=== PATIENT | male | born 1975 | race American Indian/Alaskan Native ===

== ENCOUNTER 2017-09-10 20:13 | Inpatient (IN) | payer OTHER ==
[2017-09-10] MEDS ORDERED: DUONEB *Not for PRN Use IH ONE (20:54)
--- NOTE | 2017-09-10 20:54 | Emergency Department Report ---
HPI - General Time Seen by Provider: 09/10/17 20:41 - HPI HPI: This is a 42-year-old -[place] female presents to the emergency department by EMS from home with complaint of a 5 day history of some weakness, body aches and shortness of breath. The patient had a cough leading up to these other symptoms but says that that stopped when the symptoms began. He's been using Robitussin Mucinex and TheraFlu without much relief. The patient says "I think I have the flu." He has a tobacco smoker but denies any illicit drug use. He has a past medical history of CHF, hypertension, hyperlipidemia and diabetes. 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 No recent travel or sick contacts at home. ED Past Medical Hx - Past Medical History Hx Hypertension: Yes Hx Congestive Heart Failure: Yes Hx Diabetes: Yes - Surgical History Additional Surgical History: hernia repair - Social History Smoking Status: Never Smoker Substance Use Type: None - Medications Home Medications: Home Medications Medication Instructions Recorded Confirmed Last Taken Type Furosemide [Lasix] 20 mg PO QDAY #60 tablet 03/09/16 Unknown Rx ED Review of Systems ROS: Stated complaint: ROBERT Other details as noted in HPI Comment: All other systems reviewed and negative Constitutional: weakness. denies: chills, fever Eyes: denies: eye pain, eye discharge, vision change ENT: denies: ear pain, throat pain Respiratory: cough, shortness of breath Cardiovascular: denies: chest pain, palpitations Gastrointestinal: denies: abdominal pain, nausea, diarrhea Genitourinary: denies: urgency, dysuria Musculoskeletal: myalgia. denies: joint swelling Skin: denies: rash, lesions Neurological: denies: headache, weakness, paresthesias Physical Exam - Physical Exam Physical Exam: GENERAL: The patient is well-developed well-nourished. HENT: Normocephalic. Atraumatic. Patient has moist mucous membranes. EYES: Extraocular motions are intact. Pupils equal reactive to light bilaterally. NECK: Supple. Trachea is midline. CHEST/LUNGS: Rhonchi heard throughout the chest. There is tachypnea and accessory muscle use. Productive cough heard during examination. There is respiratory distress noted. HEART/CARDIOVASCULAR: Regular. There is mild to moderate tachycardia. There is no murmur. ABDOMEN: Abdomen is soft, nontender. Patient has normal bowel sounds. Morbidly obese habitus. SKIN: Skin is warm and dry. NEURO: The patient is awake, alert, and oriented. The patient is cooperative. The patient has no focal neurologic deficits. The patient has normal speech. MUSCULOSKELETAL: There is no tenderness or deformity. There is no limitation range of motion. There is no evidence of acute injury. - ABG Interpretation Ph: 7.44 PCO2: 32 PO2: 90 Bicarbonate: 22 Interpretation: normal (on nonrebreather) ED Medical Decision Making - Lab Data Result diagrams: 09/10/17 21:03 09/10/17 21:03 - EKG Data -: EKG Interpreted by Me EKG shows normal: sinus rhythm, axis (left axis deviation), intervals, QRS complexes (Q waves to the septal and anterior leads, left anterior fascicular block), ST-T waves Rate: tachycardia (122 bpm) - EKG Data When compared to previous EKG there are: no significant change (other than current tachycardia) Interpretation: unchanged when compared t (03/09/16) - Radiology Data Radiology results: report reviewed, image reviewed interpreted by me: Chest x-ray shows patchy bilateral infiltrates throughout the lung forte concerning for pneumonia. No obvious pleural effusions. No pneumothorax. EXAM: CT ANGIO CHEST HISTORY: SOB, elevated dimer TECHNIQUE: A CT angiogram was performed following the intravenous injection of 100 cc of Omnipaque 350. Rotational, sagittal coronal MIP reconstructions were reviewed. FINDINGS: The lungs reveal extensive infiltrates bilaterally with the worse infiltrates in the right middle lobe, lingula, and both lower lobes. The lungs otherwise reveal emphysematous changes in both lung apices. The lungs are not congested. Pleural fluid is not seen. There is no evidence of pulmonary embolus or aortic dissection. Enlarged lymph nodes are not identified. There are small benign-appearing lymph nodes in the mediastinum. Pericardial fluid is not seen but the heart size is normal. In the upper abdomen the adrenal glands appear normal. The skeletal structures reveal mild disc degeneration in the thoracic spine at the thoracic inlet the thyroid gland appears normal. IMPRESSION: No evidence of pulmonary embolus, aortic dissection, or vascular congestion. Extensive bilateral pneumonia as described. Transcribed By: RB Dictated By: KIMBERLY UGALDE MD Electronically Authenticated By: KIMBERLY UGALDE MD Signed Date/Time: 09/10/172008 - Medical Decision Making Patient presents with some fatigue, weakness, shortness of breath and previous cough. Labs show hyponatremia, elevated d-dimer, elevated PTT, hyperglycemia without DKA. Chest x-ray shows extensive bilateral pneumonia. CT angiography confirms this and rules out pulmonary embolism and dissection. Patient had blood cultures sent and was started on Levaquin. The patient has hypoxia with nasal cannula and Venturi mask. He does okay on nonrebreather but cannot stay on this continuously and therefore was placed on BiPAP. He is a [employer] insurance patient and I spoke with Dr. Gentile who asked for the patient to remain at [facility] and gave permission for continued treatment. The patient has been accepted for admission by the hospitalist, Dr. Fong. - Differential Diagnosis PE, pneumonia, sepsis, influenza, URI Critical Care Time: Yes Critical care time in (mins) excluding proc time.: 35 Critical care attestation.: If time is entered above; I have spent that time in minutes in the direct care of this critically ill patient, excluding procedure time. Critical care time spent on this patient during his initial evaluation, multiple re-evaluations, switching between different supplemental oxygen modalities, ordering and interpretation of labs and imaging, discussion with the patient, discussion with the [place] physician in discussion with the admitting hospitalist. Critical Care Time: 35 minutes ED Disposition Clinical Impression: Hypoxia, Respiratory distress, Hyperglycemia, Hyponatremia Bilateral pneumonia Qualifiers: Pneumonia type: due to unspecified organism Lung location: unspecified part of lung Qualified Code(s): J18.9 - Pneumonia, unspecified organism Disposition: OP ADMIT IP TO THIS HOSP Is pt being admited?: Yes Condition: Serious Instructions: Bacterial Pneumonia (ED) Referrals: KAZ WALTER MD [Primary Care Provider] - 3-5 Days Time of Disposition: :
[2017-09-10 21:21] LABS: Basophils % (Auto) 0.7 % (0.0-1.8); Hematocrit 52.9 % (35.5-45.6); Hemoglobin 17.9 gm/dl (11.8-15.2); Lymphocytes # (Auto) 0.4 K/mm3 (1.2-5.4); Lymphocytes % (Auto) 8.5 % (13.4-35.0); Mean Corpuscular HGB Conc 34 % (32-34); Mean Corpuscular Hemoglobin 29 pg (28-32); Mean Corpuscular Volume 86 fl (84-94); Monocytes # (Auto) 0.3 K/mm3 (0.0-0.8); Monocytes % (Auto) 5.6 % (0.0-7.3); Platelet Count 126 K/mm3 (140-440); Red Blood Count 6.16 M/mm3 (3.65-5.03); Red Cell Distribution Width 14.9 % (13.2-15.2)
[2017-09-10 21:30] LABS: INR 0.9 (0.87-1.13)
[2017-09-10] MEDS ORDERED: LEVAQUIN 750MG/150ML 750 MG/150 ML BAG IV ONE (21:32)
[2017-09-10 21:38] LABS: Partial Thromboplastin Time 67.9 Sec. (24.2-36.6)
[2017-09-10 21:44] LABS: Alanine Aminotransferase 49 units/L (7-56); Albumin 2.6 g/dL (3.9-5); BUN/Creatinine Ratio 28; Blood Urea Nitrogen 25 mg/dL (9-20); Calcium 8.7 mg/dL (8.4-10.2); Hemolysis Index 19
--- NOTE | 2017-09-10 22:11 | XRay Report ---
FINAL REPORT EXAM: XR CHEST 1V AP HISTORY: Dyspnea TECHNIQUE: AP portable view of the chest PRIORS: None. FINDINGS: Lines, tubes, and devices: N/A Lungs and pleura: Trachea is normal in position. Bilateral alveolar infiltrate are noted consistent with either pneumonia versus pulmonary edema. Cardiomediastinal silhouette: The heart is enlarged.. Other: Bony structures are intact. IMPRESSION: Bilateral alveolar infiltrates consistent with pulmonary edema versus pneumonia. Cardiomegaly.
[2017-09-10] MEDS ORDERED: LASIX IV ONE (22:22)
--- NOTE | 2017-09-11 00:13 | Cat Scan Report ---
FINAL REPORT EXAM: CT ANGIO CHEST HISTORY: SOB, elevated dimer TECHNIQUE: A CT angiogram was performed following the intravenous injection of 100 cc of Omnipaque 350. Rotational, sagittal coronal MIP reconstructions were reviewed. FINDINGS: The lungs reveal extensive infiltrates bilaterally with the worse infiltrates in the right middle lobe, lingula, and both lower lobes. The lungs otherwise reveal emphysematous changes in both lung apices. The lungs are not congested. Pleural fluid is not seen. There is no evidence of pulmonary embolus or aortic dissection. Enlarged lymph nodes are not identified. There are small benign-appearing lymph nodes in the mediastinum. Pericardial fluid is not seen but the heart size is normal. In the upper abdomen the adrenal glands appear normal. The skeletal structures reveal mild disc degeneration in the thoracic spine at the thoracic inlet the thyroid gland appears normal. IMPRESSION: No evidence of pulmonary embolus, aortic dissection, or vascular congestion. Extensive bilateral pneumonia as described.
[2017-09-11] MEDS ORDERED: ZOFRAN IV PRN (05:10)
[2017-09-11] MEDS ORDERED: D50W (25GM) Syringe IV PRN (05:10)
[2017-09-11] MEDS ORDERED: DULCOLAX PR PRN (05:10)
[2017-09-11] MEDS ORDERED: MILK OF MAGNESIA PO PRN (05:10)
[2017-09-11] MEDS ORDERED: TYLENOL PO PRN (05:10)
--- NOTE | 2017-09-11 05:10 | History and Physical Report ---
History of Present Illness Date of examination: 09/11/17 History of present illness: This is a 42-year-old man with a history of hypertension, diabetes, CHF, emergency room with complaints of cough, nonproductive, shortness of breath and decreased energy with generalized weakness since Thursday. Patient was hypoxic in the emergency room and placed on BiPAP Review Of Systems: Constitutional: no weight loss Ears, eyes, nose, mouth and throat: no nasal congestion, no nasal discharge, no sinus pressure, blurry vision, diplopia Neck: No neck pain or rigidity. Cardiovascular: No chest pain, palpitations Respiratory:+shortness of breath, cough Gastrointestinal: No abdominal pain, hematochezia Genitourinary : no dysuria, frequency , hematuria Musculoskeletal: no muscle ache Integumentary: no rash, no pruritis Neurological: no parathesias, focal weakness Endocrine: no cold or heat intolerance, no polyuria or polydipsia Hematologic/Lymphatic: no easy bruising, no easy bleeding, no gland swelling Allergic/Immunologic: no urticaria, no angioedema. PAST MEDICAL HISTORY:hypertension, diabetes, CHF, PAST SURGICAL HISTORY: Hernia repair FAMILY HISTORY: Hypertension, diabetes SOCIAL HISTORY: Admits to alcohol, tobacco, denies drugs Medications and Allergies Allergies Allergy/AdvReac Type Severity Reaction Status Date / Time No Known Allergies Allergy Unverified 03/09/16 08:11 Home Medications Medication Instructions Recorded Confirmed Last Taken Type Furosemide [Lasix] 20 mg PO QDAY #60 tablet 03/09/16 Unknown Rx Exam - Physical Exam Narrative exam: Gen. appearance: Patient lying in bed in no acute distress HEENT: Normocephalic/atraumatic, pupils equal round reactive to light, extra occular movement intact, no scleral icterus, no JVD or thyromegaly or nodule, neck is supple, mucous membrane moist, no erythema or exudate Heart: S1-S2, regular rate and rhythm Lungs: Crackles bilateral breathing comfortable Abdomen: Positive bowel sounds, nontender, nondistended, no organomegaly Extremities: No edema, cyanosis, clubbing Neuro:: Oriented 3 , cranial nerves II-12 intact, speech, motor intact Skin: No rash, nodules, warm dry - Constitutional Vitals: Temp Pulse Resp BP Pulse Ox 129 H 25 H 87/39 96 09/11/17 04:17 09/11/17 04:17 09/11/17 04:17 09/11/17 04:17 Results - Labs CBC & Chem 7: 09/10/17 21:03 09/10/17 21:03 Labs: Abnormal lab results 09/10/17 09/10/17 09/10/17 Range/Units 21:03 21:03 21:03 RBC 6.16 H (3.65-5.03) M/mm3 Hgb 17.9 H (11.8-15.2) gm/dl Hct 52.9 H (35.5-45.6) % Plt Count 126 L (140-440) K/mm3 Lymph % (Auto) 8.5 L (13.4-35.0) % Lymph # 0.4 L (1.2-5.4) K/mm3 Seg Neutrophils % 85.2 H (40.0-70.0) % APTT 67.9 H* (24.2-36.6) Sec. D-Dimer 565.03 H (0-234) ng/mlDDU POC ABG pCO2 (35-45) Sodium 124 L (137-145) mmol/L Chloride 82.7 L (98-107) mmol/L Carbon Dioxide 21 L (22-30) mmol/L BUN 25 H (9-20) mg/dL Glucose 320 H (75-100) mg/dL POC Glucose (70-105) AST 110 H (5-40) units/L NT-Pro-B Natriuret Pep 1039 H (0-450) pg/mL Total Protein 5.4 L (6.3-8.2) g/dL Albumin 2.6 L (3.9-5) g/dL 09/10/17 09/10/17 Range/Units 21:27 23:24 RBC (3.65-5.03) M/mm3 Hgb (11.8-15.2) gm/dl Hct (35.5-45.6) % Plt Count (140-440) K/mm3 Lymph % (Auto) (13.4-35.0) % Lymph # (1.2-5.4) K/mm3 Seg Neutrophils % (40.0-70.0) % APTT (24.2-36.6) Sec. D-Dimer (0-234) ng/mlDDU POC ABG pCO2 32.1 L (35-45) Sodium (137-145) mmol/L Chloride (98-107) mmol/L Carbon Dioxide (22-30) mmol/L BUN (9-20) mg/dL Glucose (75-100) mg/dL POC Glucose 254 H (70-105) AST (5-40) units/L NT-Pro-B Natriuret Pep (0-450) pg/mL Total Protein (6.3-8.2) g/dL Albumin (3.9-5) g/dL - Imaging and Cardiology EKG: image reviewed Chest x-ray: image reviewed CT scan - chest: report reviewed Assessment and Plan Assessment Respiratory failure Sepsis Bilateral pneumonia Hypertension Diabetes CHF, stable Thrombocytopenia Plan Admit to medicine Continue BiPAP, nebulizer treatments, start IV Levaquin Follow cultures Check fingersticks and initiate insulin sliding scale Continue Proventil condition medications DVT prophylaxis
[2017-09-11] MEDS: DUONEB *Not for PRN Use IH SCH ×3 (08:28→19:55)
[2017-09-11] MEDS ORDERED: LOVENOX SUB-Q SCH (10:00)
--- NOTE | 2017-09-11 10:22 | Progress Note ---
Assessment and Plan Assessment and plan: This is a 42-year-old man with a history of hypertension, diabetes, CHF, emergency room with complaints of cough, nonproductive, shortness of breath and decreased energy with generalized weakness since Thursday. Patient was hypoxic in the emergency room and placed on BiPAP acute hypoxic Respiratory failure * likely due to pna, PE was ruled out by CTA * continue nebs, add steroids, pulmonology consult Sepsis * continue sepsis pathway Bilateral pneumonia, likely due to gram positive * continue abx Hypertension * continue BP meds Diabetes, type 2 * SSI CHF, stable appears euvolemic check echo Thrombocytopenia mild and stable, monitor History Interval history: Review of systems Constitutional: No fevers, no joint pains, admits fatigue CVS: No chest pain, no orthopnea, no dyspnea on exertion, no pedal edema GI: No abdominal pain, no diarrhea, no vomiting, no constipation Respiratory: c/o of worsening SOB Hospitalist Physical - Physical exam Narrative exam: General.: moderate respiratory distress HEENT: Moist mucous membranes, extraocular muscles intact, no lymphadenopathy Neck: supple Cardiac: S1-S2 heard Lungs: decreased air entry Abdomen: soft , nontender, nondistended, bowel sounds positive Extremities: no edema clubbing or cyanosis Skin: no rash or lesions Neurologic: no gross focal deficits Psych: appropriate behavior, appropriate mood, corporative, judgment intact - Constitutional Vitals: Temp Pulse Resp BP Pulse Ox 97.4 F L 125 H 25 H 113/80 90 09/11/17 08:59 09/11/17 08:59 09/11/17 04:17 09/11/17 08:59 09/11/17 07:31 Results - Labs CBC & Chem 7: 09/10/17 21:03 09/10/17 21:03 Labs: Laboratory Last Values WBC 5.1 K/mm3 (4.5-11.0) 09/10/17 21:03 RBC 6.16 M/mm3 (3.65-5.03) H 09/10/17 21:03 Hgb 17.9 gm/dl (11.8-15.2) H 09/10/17 21:03 Hct 52.9 % (35.5-45.6) H 09/10/17 21:03 MCV 86 fl (84-94) 09/10/17 21:03 MCH 29 pg (28-32) 09/10/17 21: MCHC 34 % (32-34) 09/10/17 21:03 RDW 14.9 % (13.2-15.2) 09/10/17 21:03 Plt Count 126 K/mm3 (140-440) L 09/10/17 21:03 Lymph % (Auto) 8.5 % (13.4-35.0) L 09/10/17 21:03 [place] % (Auto) 5.6 % (0.0-7.3) 09/10/17 21:03 Eos % (Auto) 0.0 % (0.0-4.3) 09/10/17 21:03 Baso % (Auto) 0.7 % (0.0-1.8) 09/10/17 21:03 Lymph # 0.4 K/mm3 (1.2-5.4) L 09/10/17 21:03 [place] # 0.3 K/mm3 (0.0-0.8) 09/10/17 21:03 Eos # 0.0 K/mm3 (0.0-0.4) 09/10/17 21:03 Baso # 0.0 K/mm3 (0.0-0.1) 09/10/17 21: Seg Neutrophils % 85.2 % (40.0-70.0) H 09/10/17 21: Seg Neutrophils # 4.4 K/mm3 (1.8-7.7) 09/10/17 21:03 PT 12.6 Sec. (12.2-14.9) 09/10/17 21: INR 0.90 (0.87-1.13) 09/10/17 21: APTT 67.9 Sec. (24.2-36.6) H* 09/10/17 21: D-Dimer 565.03 ng/mlDDU (0-234) H 09/10/17 21: POC ABG pH 7.447 (7.35-7.45) 09/10/17: POC ABG pCO2 32.1 (35-45) L 09/10/17 21: POC ABG pO2 90 (80-105) 09/10/17: POC ABG HCO3 22.1 09/10/17 21:27 POC ABG Total CO2 23 09/10/17 21:27 POC ABG O2 Sat 97 09/10/17 21:27 POC ABG Base Excess -2 09/10/17 21:27 FiO2 100 % 09/10/17 21:27 Sodium 124 mmol/L (137-145) L 09/10/17 21:03 Potassium 4.2 mmol/L (3.6-5.0) 09/10/17 21:03 Chloride 82.7 mmol/L (98-107) L 09/10/17 21:03 Carbon Dioxide 21 mmol/L (22-30) L 09/10/17 21:03 Anion Gap 25 mmol/L 09/10/17 21:03 BUN 25 mg/dL (9-20) H 09/10/17 21:03 Creatinine 0.9 mg/dL (0.8-1.5) 09/10/17 21:03 Estimated GFR > 60 ml/min 09/10/17 21:03 BUN/Creatinine Ratio 28 % 09/10/17 21:03 Glucose 320 mg/dL (75-100) H 09/10/17 21:03 POC Glucose 254 (70-105) H 09/10/17 23:24 Calcium 8.7 mg/dL (8.4-10.2) 09/10/17 21:03 Total Bilirubin 0.40 mg/dL (0.1-1.2) 09/10/17 21:03 AST 110 units/L (5-40) H 09/10/17 21:03 ALT 49 units/L (7-56) 09/10/17 21:03 Alkaline Phosphatase 82 units/L (35-129) 09/10/17 21:03 Troponin T 0.023 ng/mL (0.00-0.029) 09/11/17 02:19 NT-Pro-B Natriuret Pep 1039 pg/mL (0-450) H 09/10/17 21:03 Total Protein 5.4 g/dL (6.3-8.2) L 09/10/17 21:03 Albumin 2.6 g/dL (3.9-5) L 09/10/17 21:03 Albumin/Globulin Ratio 0.9 % 09/10/17 21:03 - Imaging and Cardiology CT scan - chest: image reviewed (extensive bilateral pna)
[2017-09-11] MEDS: NOVOLOG SUB-Q SCH ×3 (11:47→23:00)
[2017-09-11] MEDS: LASIX PO SCH (17:50)
--- NOTE | 2017-09-11 18:42 | Consultation ---
History of Present Illness Consult date: 09/11/17 Reason for consult: cough, hypoxemia, pneumonia History of present illness: PULMONARY AND CRITICAL CARE CONSULTATION Dr. Kwan thank you for asking us to participate in the care of this patient This is 42 year old white male Obese admitted with shortness of breath and Hypoxia. Patients chest xray and CAT scan of chest reported bilateral pulmonary infiltrates.Patient has history of diabetes,hypertension and CHF. Patient complaining generalized malaise,weakness and excessive sleepiness. Patient has history of smoking 1/2 a pack a day for 20 years.Denies alcohol or drug abuse. 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 and has two children. Patients D dimer elevated and Angio CT reported No PE.Patients Blood gases reported PH 7.4, PCO2 32, PO2 90, HCO3 23, O2 saturation 97% on [id number] non rebreathing mask.Patients hgb 17.9, HCT52.9. Appears secondary polycythemia secondary to hypoxemia or it could be related to dehydration.Patients Glucose is high. Patients Na+ 124 could be related to hyperglycemia. Past History Past Medical History: diabetes, heart failure, hypertension Social history: smoking (1/2 a pack a day for 20 years.) Medications and Allergies Allergies Allergy/AdvReac Type Severity Reaction Status Date / Time No Known Allergies Allergy Unverified 03/09/16 08:11 Home Medications Medication Instructions Recorded Confirmed Last Taken Type Furosemide [Lasix] 20 mg PO QDAY #60 tablet 03/09/16 Unknown Rx Active Meds: Active Medications Acetaminophen (Tylenol) 650 mg PO Q4H PRN PRN Reason: Pain MILD(1-3)/Fever >100.5/[place] Albuterol/Ipratropium (Duoneb *Not For Prn Use*) 1 ampul IH Q6HRT [facility] Last Admin: 09/11/17 14:23 Dose: 1 ampul Bisacodyl (Dulcolax) 10 mg SD QDAY PRN PRN Reason: Constipation unrelieved by MOM Dextrose (D50w (25gm) Syringe) 50 ml IV PRN PRN PRN Reason: Hypoglycemia Furosemide (Lasix) 20 mg PO QDAY [facility] Last Admin: 09/11/17 17:50 Dose: 20 mg Levofloxacin/Dextrose (Levaquin 750mg/150ml) 750 mg in 150 mls @ 100 mls/hr IV Q24H [facility] PRN Reason: Protocol Sodium Chloride (Nacl 0.9% 1000 Ml) 1,000 mls @ 125 mls/hr IV DIRECT [facility]AL[facility] Stop: 09/13/17 23:59 Insulin Aspart (Novolog) 0 units SUB-Q ACHS [facility] PRN Reason: Protocol Last Admin: 09/11/17 17:49 Dose: 8 units Magnesium Hydroxide (Milk Of Magnesia) 30 ml PO Q4H PRN PRN Reason: Constipation Methylprednisolone Sodium Succinate (Solu-Medrol) 40 mg IV Q8H [facility] Last Admin: 09/11/17 17:50 Dose: 40 mg Ondansetron HCl (Zofran) 4 mg IV Q8H PRN PRN Reason: N/V unrelieved by Reglan Review of Systems ROS unobtainable: due to mental status Constitutional: anorexia, fatigue, malaise, lethargy, poor appetite, daytime sleepiness Respiratory: cough, cough with sputum, shortness of breath Endocrine: high blood sugars Physical Examination Vital signs: Vital Signs Pulse 123 H 09/10/17 20:41 General appearance: no acute distress, lethargic, asleep Eyes: non-icteric ENT: oropharynx dry Neck: supple, no JVD Ascultation: Bilateral: rhonchi Cardiovascular: regular rate and rhythm Gastrointestinal: normoactive bowel sounds, soft, non-tender Integumentary: normal, rash Extremities: no cyanosis, no edema Musculoskeletal: no deformities unable to assess other (Unable to assess due mental status.) Results - Laboratory Findings CBC and BMP: 09/10/17 21:03 09/10/17 21:03 ABG POC ABG pH 7.447 (7.35-7.45) 09/10/17 21:27 POC ABG pCO2 32.1 (35-45) L 09/10/17 21: POC ABG pO2 90 (80-105) 09/10/17 21: POC ABG HCO3 22.1 09/10/17 21:27 POC ABG Total CO2 23 09/10/17 21:27 POC ABG O2 Sat 97 09/10/17 21:27 PT/INR, D-dimer PT 12.6 Sec. (12.2-14.9) 09/10/17 21:03 INR 0.90 (0.87-1.13) 09/10/17 21:03 D-Dimer 565.03 ng/mlDDU (0-234) H 09/10/17 21:03 Abnormal lab findings: Abnormal Labs 09/10/17 09/10/17 09/10/17 21:03 21:03 21:03 RBC 6.16 H Hgb 17.9 H Hct 52.9 H Plt Count 126 L Lymph % (Auto) 8.5 L Lymph # 0.4 L Seg Neutrophils % 85.2 H APTT 67.9 H* D-Dimer 565.03 H POC ABG pCO2 Sodium 124 L Chloride 82.7 L Carbon Dioxide 21 L BUN 25 H Glucose 320 H POC Glucose AST 110 H NT-Pro-B Natriuret Pep 1039 H Total Protein 5.4 L Albumin 2.6 L 09/10/17 09/10/17 09/11/17 21:27 23:24 12:57 RBC Hgb Hct Plt Count Lymph % (Auto) Lymph # Seg Neutrophils % APTT D-Dimer POC ABG pCO2 32.1 L Sodium Chloride Carbon Dioxide BUN Glucose POC Glucose 254 H 219 H AST NT-Pro-B Natriuret Pep Total Protein Albumin - Diagnostic Findings Chest x-ray: report reviewed (Bilateral pulmonary infiltrates.), image reviewed CT scan - chest: report reviewed (Bilateral pneumonia, No PE.), image reviewed Assessment and Plan This is 42 year old white male admitted with shortness of breath and Hypoxia. Patients chest xray and CAT scan of chest reported bilateral pulmonary infiltrates.Patient has history of diabetes,hypertension and CHF. Patient complaining generalized malaise and weakness. Patient has history of smoking 1/ 2 a pack a day for 20 years.Deniws alcohol or drug abuse. 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 and has two children. Patients D dimer elevated and Angio CT reported No PE.Patients Blood gases reported PH 7.4, PCO2 32, PO2 90, HCO3 23, O2 saturation 97% on [id number] non rebreathing mask.Patients hgb 17.9,HCT52.9. Appears secondary polycythemia secondary to hypoxemia or it could be related to dehydration. Patients Glucose is high. Patients Na+ 124 could be related to hyperglycemia. - Patient Problems (1) Bilateral pneumonia Current Visit: Yes Status: Acute Qualifiers: Pneumonia type: due to unspecified organism Lung location: unspecified part of lung Qualified Code(s): J18.9 - Pneumonia, unspecified organism Plan to address problem: Patient is on levaquine. Recommend to add Zosyn and vancomycin. (2) Hyperglycemia Current Visit: Yes Status: Acute Plan to address problem: Management as per primary care. (3) Hyponatremia Current Visit: Yes Status: Acute Plan to address problem: May be secondary to hyperglycemia. (4) Hypoxia Current Visit: Yes Status: Acute Plan to address problem: Patient placed on 50% Venturi Mask . Recommend to place him on BIPAP. (5) Respiratory distress Current Visit: Yes Status: Acute Plan to address problem: Patient resting on 50% FIO2 venturi mask.O2 saturation 93% Recommend to place him on BIPAP 20 /10, rate 20, FIO2 75% Albuterol/atrovent aerosol treatments q 6 hours. Continue I/V solumedral Recommend Lovenox 40 mg S/C qd. Recommend Protonix 40 mg po qd. This could be ARDS, Recommend to monitor him in ICU (6) Obesity (BMI 30-39.9) Current Visit: Yes Status: Acute Plan to address problem: Dietary consultation. (7) Sleep apnea Current Visit: Yes Status: Acute Plan to address problem: Keep him on BIPAP at this time. Recommend sleep study as Out patient.
[2017-09-11] MEDS: NACL 0.9% 1000 ML 1,000 ML IV SCH (20:00)
[2017-09-11] MEDS: LEVAQUIN 750MG/150ML 750 MG/150 ML BAG IV SCH (22:55)
[2017-09-12] MEDS: DUONEB *Not for PRN Use IH SCH ×4 (04:23→20:21)
[2017-09-12 04:25] LABS: Basophils % (Auto) 0.2 % (0.0-1.8); Eosinophils % (Auto) 0.1 % (0.0-4.3); Hematocrit 49.8 % (35.5-45.6); Hemoglobin 17.1 gm/dl (11.8-15.2); Lymphocytes # (Auto) 0.5 K/mm3 (1.2-5.4); Lymphocytes % (Auto) 18.3 % (13.4-35.0); Mean Corpuscular HGB Conc 34 % (32-34); Mean Corpuscular Hemoglobin 29 pg (28-32); Mean Corpuscular Volume 84 fl (84-94); Monocytes # (Auto) 0.3 K/mm3 (0.0-0.8); Monocytes % (Auto) 9.6 % (0.0-7.3); Red Blood Count 5.91 M/mm3 (3.65-5.03); Red Cell Distribution Width 14.8 % (13.2-15.2)
[2017-09-12 04:47] LABS: BUN/Creatinine Ratio 31; Blood Urea Nitrogen 28 mg/dL (9-20); Calcium 7.5 mg/dL (8.4-10.2); Hemolysis Index 23
[2017-09-12] MEDS: NACL 0.9% 1000 ML 1,000 ML IV SCH (07:03)
[2017-09-12 07:06] LABS: Platelet Count 94 K/mm3 (140-440)
[2017-09-12] MEDS: NOVOLOG SUB-Q SCH ×5 (09:00→21:52)
[2017-09-12] MEDS: LASIX PO SCH (09:25)
[2017-09-12] MEDS: LOVENOX SUB-Q SCH (09:26)
[2017-09-12] MEDS: PROTONIX IV SCH (10:39)
--- NOTE | 2017-09-12 12:02 | Progress Note ---
Assessment and Plan Assessment and plan: This is a 42-year-old man with a history of hypertension, diabetes, CHF, emergency room with complaints of cough, nonproductive, shortness of breath and decreased energy with generalized weakness since Thursday. Patient was hypoxic in the emergency room and placed on BiPAP acute hypoxic Respiratory failure * likely due to pna, PE was ruled out by CTA * continue nebs, add steroids, pulmonology consult Sepsis * continue sepsis pathway Bilateral pneumonia, likely due to gram positive * continue abx Hypertension * continue BP meds Diabetes, type 2 * SSI hyponatremia likely SIADH, recheck in am consult Renal, not improving, added salt tabs CHF, stable appears euvolemic check echo Thrombocytopenia mild and stable, monitor The high probability of a clinically significant, sudden or life threatening deterioration of the [pulmonary, cv, renal) system(s) required my full and direct attention, intervention and personal management. The aggregate critical care time was [44 ] minutes. This time is in addition to time spent performing reported procedures but includes the following: [] Data Review and interpretation [] Patient assessment and monitoring of vital signs [] Documentation [] Medication orders and management History Interval history: patient states that he feels thirsty all the time RN states that he keeps asking for water Review of systems Constitutional: No fevers, no joint pains, admits fatigue CVS: No chest pain, no orthopnea, no dyspnea on exertion, no pedal edema GI: No abdominal pain, no diarrhea, no vomiting, no constipation Respiratory: c/o of SOB Hospitalist Physical - Physical exam Narrative exam: General.: moderate respiratory distress HEENT: Moist mucous membranes, extraocular muscles intact, no lymphadenopathy Neck: supple Cardiac: S1-S2 heard Lungs: decreased air entry Abdomen: soft , nontender, nondistended, bowel sounds positive Extremities: no edema clubbing or cyanosis Skin: no rash or lesions Neurologic: no gross focal deficits Psych: appropriate behavior, appropriate mood, corporative, judgment intact - Constitutional Vitals: Temp Pulse Resp BP Pulse Ox 97.9 F 102 H 26 H 115/77 94 09/12/17 08:00 09/12/17 10:13 09/12/17 10:13 09/12/17 10:13 09/12/17 10:13 Results - Labs CBC & Chem 7: 09/12/17 03:31 09/13/17 03:24 Labs: Laboratory Last Values WBC 2.8 K/mm3 (4.5-11.0) L 09/12/17 03:31 RBC 5.91 M/mm3 (3.65-5.03) H 09/12/17 03:31 Hgb 17.1 gm/dl (11.8-15.2) H 09/12/17 03:31 Hct 49.8 % (35.5-45.6) H 09/12/17 03:31 MCV 84 fl (84-94) 09/12/17 03:31 MCH 29 pg (28-32) 09/12/17 03:31 MCHC 34 % (32-34) 09/12/17 03:31 RDW 14.8 % (13.2-15.2) 09/12/17 03:31 Plt Count 94 K/mm3 (140-440) L 09/12/17 03:31 Lymph % (Auto) 18.3 % (13.4-35.0) 09/12/17 03:31 [place] % (Auto) 9.6 % (0.0-7.3) H 09/12/17 03:31 Eos % (Auto) 0.1 % (0.0-4.3) 09/12/17 03:31 Baso % (Auto) 0.2 % (0.0-1.8) 09/12/17 03:31 Lymph # 0.5 K/mm3 (1.2-5.4) L 09/12/17 03:31 [place] # 0.3 K/mm3 (0.0-0.8) 09/12/17 03:31 Eos # 0.0 K/mm3 (0.0-0.4) 09/12/17 03:31 Baso # 0.0 K/mm3 (0.0-0.1) 09/12/17 03:31 Seg Neutrophils % 71.8 % (40.0-70.0) H 09/12/17 03:31 Seg Neutrophils # 2.0 K/mm3 (1.8-7.7) 09/12/17 03:31 PT 12.6 Sec. (12.2-14.9) 09/10/17 21:03 INR 0.90 (0.87-1.13) 09/10/17 21:03 APTT 67.9 Sec. (24.2-36.6) H* 09/10/17 21:03 D-Dimer 565.03 ng/mlDDU (0-234) H 09/10/17 21:03 POC ABG pH 7.397 (7.35-7.45) 09/12/17 11:08 POC ABG pCO2 37.9 (35-45) 09/12/17 11:08 POC ABG pO2 86 (80-105) 09/12/17 11:08 POC ABG HCO3 23.3 09/12/17 11:08 POC ABG Total CO2 24 09/12/17 11:08 POC ABG O2 Sat 97 09/12/17 11:08 POC ABG Base Excess -2 09/12/17 11:08 FiO2 50 % 09/12/17 11:08 Sodium 122 mmol/L (137-145) L 09/12/17 03:31 Potassium 4.0 mmol/L (3.6-5.0) 09/12/17 03:31 Chloride 84.4 mmol/L (98-107) L 09/12/17 03:31 Carbon Dioxide 22 mmol/L (22-30) 09/12/17 03:31 Anion Gap 20 mmol/L 09/12/17 03:31 BUN 28 mg/dL (9-20) H 09/12/17 03:31 Creatinine 0.9 mg/dL (0.8-1.5) 09/12/17 03:31 Estimated GFR > 60 ml/min 09/12/17 03:31 BUN/Creatinine Ratio 31 % 09/12/17 03:31 Glucose 270 mg/dL (75-100) H 09/12/17 03:31 POC Glucose 264 (70-105) H 09/12/17 11:36 Calcium 7.5 mg/dL (8.4-10.2) L 09/12/17 03:31 Total Bilirubin 0.40 mg/dL (0.1-1.2) 09/10/17 21:03 AST 110 units/L (5-40) H 09/10/17 21:03 ALT 49 units/L (7-56) 09/10/17 21:03 Alkaline Phosphatase 82 units/L (35-129) 09/10/17 21:03 Troponin T 0.023 ng/mL (0.00-0.029) 09/11/17 02:19 NT-Pro-B Natriuret Pep 1039 pg/mL (0-450) H 09/10/17 21:03 Total Protein 5.4 g/dL (6.3-8.2) L 09/10/17 21:03 Albumin 2.6 g/dL (3.9-5) L 09/10/17 21:03 Albumin/Globulin Ratio 0.9 % 09/10/17 21:03
[2017-09-12] MEDS: SODIUM CHLORIDE PO SCH ×2 (13:32→22:17)
--- NOTE | 2017-09-12 15:00 | Progress Note ---
Assessment and Plan Acute hypoxemic respiratory failure Bilateral pneumonia Hyponatremia Diabetes, poorly controlled Morbid obesity Erythrocytosis Thrombocytopenia Leukopenia -Continue with NIPPV qhs and Prn High flow oxygen Continue with antibiotics for CAP, with it's severity add ceftriaxone VTE prophylaxis Send urine sodium, serum and urine osmolality to evaluate hyponatremia. Delirium management, probably metabolic/toxic Get 2 D echocardiogram to evaluate for pulmonary HTN He does not have traditional risk factors, by history, for HIV but will recommend screening him. Subjective Date of service: 09/12/17 Principal diagnosis: Acute hypoxic respiratory failure, bilateral infiltrates, encephalopathy, Interval history: Follow up for acute hypoxemic respiratory failure, bilateral pulmonary infiltrates, encephalopathy Seen and examined. Vitals, labs, medications, chart and imaging reviewed. Discussed with RN and RT Patient appears calm and is appropriate in his responses to questions. He states that he has been drinking a lot of water for a dry mouth and he is just very fatigued. He just wants to sleep all the time Objective - Exam Narrative Exam: General.: moderate respiratory distress on NIPPV, Tachypnic HEENT: Moist mucous membranes, extraocular muscles intact, no lymphadenopathy Neck: supple, no adenopathy, Cardiac: S1-S2 heard, RRR, no murmurs, gallops or rubs Lungs: decreased air entry bilaterally with crackles Abdomen: soft , non tender, non distended, bowel sounds positive Extremities: no edema clubbing or cyanosis Skin: no rash or lesions Neurologic: no gross focal deficits Psych: appropriate behavior, appropriate mood, corporative, judgment intact Vital Signs - 12hr 09/12/17 09/12/17 09/12/17 03:00 03:11 03:15 Temperature Pulse Rate 107 H 108 H Pulse Rate [ Anterior Bilateral Throughout] Respiratory 28 H 28 H 20 Rate Respiratory Rate [Anterior Bilateral Throughout] Blood Pressure 112/82 112/82 O2 Sat by Pulse 96 97 92 Oximetry 09/12/17 09/12/17 09/12/17 03:19 03:21 03:31 Temperature 98.8 F Pulse Rate 106 H 107 H Pulse Rate [ Anterior Bilateral Throughout] Respiratory 29 H 29 H Rate Respiratory Rate [Anterior Bilateral Throughout] Blood Pressure 112/82 112/82 O2 Sat by Pulse 93 95 Oximetry 09/12/17 09/12/17 09/12/17 03:41 03:51 04:00 Temperature Pulse Rate 105 H 107 H 109 H Pulse Rate [ Anterior Bilateral Throughout] Respiratory 29 H 24 24 Rate Respiratory Rate [Anterior Bilateral Throughout] Blood Pressure 112/82 112/82 126/90 O2 Sat by Pulse 91 93 96 Oximetry 09/12/17 09/12/17 09/12/17 04:11 04:21 04:31 Temperature Pulse Rate 105 H 107 H 103 H Pulse Rate [ Anterior Bilateral Throughout] Respiratory 18 28 H 26 H Rate Respiratory Rate [Anterior Bilateral Throughout] Blood Pressure 126/90 126/90 126/90 O2 Sat by Pulse 94 93 91 Oximetry 09/12/17 09/12/17 09/12/17 04:41 04:51 05:00 Temperature Pulse Rate 102 H 101 H 101 H Pulse Rate [ Anterior Bilateral Throughout] Respiratory 26 H 24 23 Rate Respiratory Rate [Anterior Bilateral Throughout] Blood Pressure 126/90 126/90 103/68 O2 Sat by Pulse 91 91 92 Oximetry 09/12/17 09/12/17 09/12/17 05:11 05:15 05:21 Temperature Pulse Rate 101 H 112 H Pulse Rate [ Anterior Bilateral Throughout] Respiratory 23 20 17 Rate Respiratory Rate [Anterior Bilateral Throughout] Blood Pressure 103/68 103/68 O2 Sat by Pulse 92 92 97 Oximetry 09/12/17 09/12/17 09/12/17 05:31 05:41 05:51 Temperature Pulse Rate 106 H 110 H 106 H Pulse Rate [ Anterior Bilateral Throughout] Respiratory 29 H 34 H 45 H Rate Respiratory Rate [Anterior Bilateral Throughout] Blood Pressure 103/68 103/68 103/68 O2 Sat by Pulse 95 95 93 Oximetry 09/12/17 09/12/17 09/12/17 06:00 06:11 06:21 Temperature Pulse Rate 104 H 102 H 102 H Pulse Rate [ Anterior Bilateral Throughout] Respiratory 21 29 H 27 H Rate Respiratory Rate [Anterior Bilateral Throughout] Blood Pressure 123/81 123/81 123/81 O2 Sat by Pulse 92 85 88 Oximetry 09/12/17 09/12/17 09/12/17 06:31 06:41 06:51 Temperature Pulse Rate 105 H 103 H 106 H Pulse Rate [ Anterior Bilateral Throughout] Respiratory 31 H 27 H 27 H Rate Respiratory Rate [Anterior Bilateral Throughout] Blood Pressure 123/81 123/81 123/81 O2 Sat by Pulse 93 87 90 Oximetry 09/12/17 09/12/17 09/12/17 07:00 07:11 07:21 Temperature Pulse Rate 105 H 104 H 104 H Pulse Rate [ Anterior Bilateral Throughout] Respiratory 24 26 H 30 H Rate Respiratory Rate [Anterior Bilateral Throughout] Blood Pressure 110/89 110/89 110/89 O2 Sat by Pulse 93 90 Oximetry 09/12/17 09/12/17 09/12/17 07:31 07:41 07:51 Temperature Pulse Rate 103 H 105 H 103 H Pulse Rate [ Anterior Bilateral Throughout] Respiratory 27 H 28 H 30 H Rate Respiratory Rate [Anterior Bilateral Throughout] Blood Pressure 110/89 110/89 110/89 O2 Sat by Pulse 91 87 89 Oximetry 09/12/17 09/12/17 09/12/17 08:00 08:11 08:21 Temperature 97.9 F Pulse Rate 102 H 103 H 104 H Pulse Rate [ Anterior Bilateral Throughout] Respiratory 23 28 H 27 H Rate Respiratory Rate [Anterior Bilateral Throughout] Blood Pressure 119/82 119/82 119/82 O2 Sat by Pulse 89 89 90 Oximetry 09/12/17 09/12/17 09/12/17 08:31 08:41 08:51 Temperature Pulse Rate 110 H 106 H 107 H Pulse Rate [ Anterior Bilateral Throughout] Respiratory 19 24 16 Rate Respiratory Rate [Anterior Bilateral Throughout] Blood Pressure 119/82 119/82 119/82 O2 Sat by Pulse 90 86 91 Oximetry 09/12/17 09/12/17 09/12/17 09:01 09:05 09:06 Temperature Pulse Rate 106 H Pulse Rate [ 106 H 100 H Anterior Bilateral Throughout] Respiratory 34 H Rate Respiratory 22 20 Rate [Anterior Bilateral Throughout] Blood Pressure 120/85 O2 Sat by Pulse Oximetry 09/12/17 09/12/17 09/12/17 09:11 09:21 09:31 Temperature Pulse Rate 104 H 104 H 102 H Pulse Rate [ Anterior Bilateral Throughout] Respiratory 21 26 H 25 H Rate Respiratory Rate [Anterior Bilateral Throughout] Blood Pressure 120/85 120/85 120/85 O2 Sat by Pulse 93 88 88 Oximetry 09/12/17 09/12/17 09/12/17 09:41 09:51 10:00 Temperature Pulse Rate 102 H 104 H 101 H Pulse Rate [ Anterior Bilateral Throughout] Respiratory 24 29 H 26 H Rate Respiratory Rate [Anterior Bilateral Throughout] Blood Pressure 120/85 120/85 115/77 O2 Sat by Pulse 91 93 89 Oximetry 09/12/17 09/12/17 09/12/17 10:11 10:13 10:21 Temperature Pulse Rate 102 H 102 H 103 H Pulse Rate [ Anterior Bilateral Throughout] Respiratory 25 H 26 H 26 H Rate Respiratory Rate [Anterior Bilateral Throughout] Blood Pressure 115/77 115/77 115/77 O2 Sat by Pulse 94 94 95 Oximetry 09/12/17 09/12/17 09/12/17 10:31 10:41 10:51 Temperature Pulse Rate 103 H 103 H 104 H Pulse Rate [ Anterior Bilateral Throughout] Respiratory 25 H 23 26 H Rate Respiratory Rate [Anterior Bilateral Throughout] Blood Pressure 115/77 115/77 115/77 O2 Sat by Pulse 94 96 96 Oximetry 09/12/17 09/12/17 09/12/17 11:00 11:11 11:21 Temperature Pulse Rate 103 H 101 H 100 H Pulse Rate [ Anterior Bilateral Throughout] Respiratory 23 24 22 Rate Respiratory Rate [Anterior Bilateral Throughout] Blood Pressure 115/84 115/84 115/84 O2 Sat by Pulse 98 94 94 Oximetry 09/12/17 09/12/17 09/12/17 11:30 11:31 11:41 Temperature Pulse Rate 102 H 100 H Pulse Rate [ Anterior Bilateral Throughout] Respiratory 24 23 Rate Respiratory Rate [Anterior Bilateral Throughout] Blood Pressure 115/84 115/84 O2 Sat by Pulse 90 99 95 Oximetry 09/12/17 09/12/17 09/12/17 11:51 12:00 14:01 Temperature 97.8 F Pulse Rate 99 H 102 H 100 H Pulse Rate [ Anterior Bilateral Throughout] Respiratory 29 H 21 26 H Rate Respiratory Rate [Anterior Bilateral Throughout] Blood Pressure 115/84 122/84 O2 Sat by Pulse 99 97 96 Oximetry 09/12/17 09/12/17 14:11 14:12 Temperature Pulse Rate Pulse Rate [ 103 H 106 H Anterior Bilateral Throughout] Respiratory Rate Respiratory 26 H 24 Rate [Anterior Bilateral Throughout] Blood Pressure O2 Sat by Pulse Oximetry Constitutional: no acute distress, lethargic, asleep Eyes: non-icteric ENT: oropharynx dry Neck: supple, no JVD Ascultation: Bilateral: rhonchi Cardiovascular: regular rate and rhythm Gastrointestinal: normoactive bowel sounds, soft, non-tender Integumentary: normal, rash Extremities: no cyanosis, no edema Neurologic: unable to assess Psychiatric: other (Unable to assess due mental status.) CBC and BMP: 09/12/17 03:31 09/13/17 03:24 ABG, PT/INR, D-dimer: ABG POC ABG pH 7.397 (7.35-7.45) 09/12/17 11:08 POC ABG pCO2 37.9 (35-45) 09/12/17 11:08 POC ABG pO2 86 (80-105) 09/12/17 11:08 POC ABG HCO3 23.3 09/12/17 11:08 POC ABG Total CO2 24 09/12/17 11:08 POC ABG O2 Sat 97 09/12/17 11:08 PT/INR, D-dimer PT 12.6 Sec. (12.2-14.9) 09/10/17 21:03 INR 0.90 (0.87-1.13) 09/10/17 21:03 D-Dimer 565.03 ng/mlDDU (0-234) H 09/10/17 21:03 Abnormal lab findings: Abnormal Labs 09/10/17 09/10/17 09/10/17 21:03 21:03 21:03 WBC RBC 6.16 H Hgb 17.9 H Hct 52.9 H Plt Count 126 L Lymph % (Auto) 8.5 L [place] % (Auto) Lymph # 0.4 L Seg Neutrophils % 85.2 H APTT 67.9 H* D-Dimer 565.03 H POC ABG pH POC ABG pCO2 POC ABG pO2 Sodium 124 L Chloride 82.7 L Carbon Dioxide 21 L BUN 25 H Glucose 320 H POC Glucose Calcium AST 110 H NT-Pro-B Natriuret Pep 1039 H Total Protein 5.4 L Albumin 2.6 L 09/10/17 09/10/17 09/11/17 21:27 23:24 12:57 WBC RBC Hgb Hct Plt Count Lymph % (Auto) [place] % (Auto) Lymph # Seg Neutrophils % APTT D-Dimer POC ABG pH POC ABG pCO2 32.1 L POC ABG pO2 Sodium Chloride Carbon Dioxide BUN Glucose POC Glucose 254 H 219 H Calcium AST NT-Pro-B Natriuret Pep Total Protein Albumin 09/11/17 09/11/17 09/11/17 16:18 20:51 21:47 WBC RBC Hgb Hct Plt Count Lymph % (Auto) [place] % (Auto) Lymph # Seg Neutrophils % APTT D-Dimer POC ABG pH 7.455 H POC ABG pCO2 33.3 L POC ABG pO2 68 L Sodium Chloride Carbon Dioxide BUN Glucose POC Glucose 300 H 253 H Calcium AST NT-Pro-B Natriuret Pep Total Protein Albumin 09/12/17 09/12/17 09/12/17 03:31 03:31 08:14 WBC 2.8 L RBC 5.91 H Hgb 17.1 H Hct 49.8 H Plt Count 94 L Lymph % (Auto) [place] % (Auto) 9.6 H Lymph # 0.5 L Seg Neutrophils % 71.8 H APTT D-Dimer POC ABG pH POC ABG pCO2 POC ABG pO2 Sodium 122 L Chloride 84.4 L Carbon Dioxide BUN 28 H Glucose 270 H POC Glucose 207 H Calcium 7.5 L AST NT-Pro-B Natriuret Pep Total Protein Albumin 09/12/17 11:36 WBC RBC Hgb Hct Plt Count Lymph % (Auto) [place] % (Auto) Lymph # Seg Neutrophils % APTT D-Dimer POC ABG pH POC ABG pCO2 POC ABG pO2 Sodium Chloride Carbon Dioxide BUN Glucose POC Glucose 264 H Calcium AST NT-Pro-B Natriuret Pep Total Protein Albumin Chest x-ray: image reviewed CT scan - chest: image reviewed Allied health notes reviewed: RT Critical care time in (mins) excluding proc time.: 35 Critical care attestation.: If time is entered above; I have spent that time in minutes in the direct care of this critically ill patient, excluding procedure time.
[2017-09-12] MEDS ORDERED: ROCEPHIN/NS 1 GM/50 ML 1 GM/50 ML BAG IV SCH (16:00)
[2017-09-12] MEDS: cefTRIAXone 1 GM in NACL 0.9% 20 ML IV SCH (16:06)
[2017-09-12] MEDS ORDERED: HALDOL IV ONE (20:23)
[2017-09-12] MEDS: LEVAQUIN 750MG/150ML 750 MG/150 ML BAG IV SCH (22:20)
[2017-09-13] MEDS: DUONEB *Not for PRN Use IH SCH ×3 (01:56→15:07)
[2017-09-13 04:11] LABS: BUN/Creatinine Ratio 35; Blood Urea Nitrogen 35 mg/dL (9-20); Calcium 7.3 mg/dL (8.4-10.2); Hemolysis Index 75
[2017-09-13] MEDS: LOVENOX SUB-Q SCH (09:49)
[2017-09-13] MEDS: PROTONIX IV SCH (09:49)
[2017-09-13] MEDS: NOVOLOG SUB-Q SCH ×4 (09:50→21:53)
[2017-09-13] MEDS: LASIX PO SCH (09:50)
--- NOTE | 2017-09-13 09:52 | Consultation ---
History of Present Illness - Reason for Consult Consult date: 09/13/17 hyponatremia - History of Present Illness patient with h/o DM and CHF who was admitted to [facility] 2 days ago for SOB, CXR showed BL infiltrates suggesting pneumonia vs. pulm congestion, CTA was done and was negative for PE and more consistent with pneumonia, he was started on IV antibiotics, he was noted to have hyponatremia on admission on renal conslt was requested. patient mentioned for the 3 weeks he was drinking a lot of water , more than 9 bottles a day for dry mouth. Past History Past Medical History: diabetes, heart failure, hypertension Social history: smoking (1/2 a pack a day for 20 years.) Medications and Allergies Allergies Allergy/AdvReac Type Severity Reaction Status Date / Time No Known Allergies Allergy Verified 09/12/17 03:10 Home Medications Medication Instructions Recorded Confirmed Last Taken Type Furosemide [Lasix] 20 mg PO QDAY #60 tablet 03/09/16 09/12/17 09/11/17 17:50 Rx 20 mg Acetaminophen/Dp-Hydramine 1 each PO PRN 09/12/17 09/12/17 09/11/17 06:00 History [[facility] Pm Powder Packet] 1 Active Meds: Active Medications Acetaminophen (Tylenol) 650 mg PO Q4H PRN PRN Reason: Pain MILD(1-3)/Fever >100.5/[place] Albuterol/Ipratropium (Duoneb *Not For Prn Use*) 1 ampul IH Q6HRT [facility] Last Admin: 09/13/17 08:59 Dose: 1 ampul Bisacodyl (Dulcolax) 10 mg SC QDAY PRN PRN Reason: Constipation unrelieved by MOM Dextrose (D50w (25gm) Syringe) 50 ml IV PRN PRN PRN Reason: Hypoglycemia Enoxaparin Sodium (Lovenox) 40 mg SUB-Q QDAY [facility] Last Admin: 09/12/17 09:26 Dose: 40 mg Furosemide (Lasix) 20 mg PO QDAY [facility] Last Admin: 09/12/17 09:25 Dose: 20 mg Levofloxacin/Dextrose (Levaquin 750mg/150ml) 750 mg in 150 mls @ 100 mls/hr IV Q24H AYALA PRN Reason: Protocol Last Admin: 09/12/17 22:20 Dose: 100 mls/hr Ceftriaxone Sodium 1 gm/ (Sodium Chloride) 20 mls @ 20 mls/10 min IV Q24H [facility] Last Admin: 09/12/17 16:06 Dose: 20 mls/10 min Insulin Aspart (Novolog) 0 units SUB-Q ACHS AYALA PRN Reason: Protocol Last Admin: 09/12/17 21:52 Dose: 4 units Magnesium Hydroxide (Milk Of Magnesia) 30 ml PO Q4H PRN PRN Reason: Constipation Methylprednisolone Sodium Succinate (Solu-Medrol) 40 mg IV Q8H [facility] Last Admin: 09/13/17 03:46 Dose: 40 mg Ondansetron HCl (Zofran) 4 mg IV Q8H PRN PRN Reason: N/V unrelieved by Reglan Pantoprazole Sodium (Protonix) 40 mg IV QDAY [facility] Last Admin: 09/12/17 10:39 Dose: 40 mg Review of Systems All systems: negative (SOB, dry cough.) Exam - Vital Signs Vital signs: Vital Signs Pulse 123 H 09/10/17 20:41 - General Appearance General appearance: well-developed, well-nourished EENT: ATNC, PERRL, mucous membranes moist Neck: Present: neck supple Respiratory: Rales, [place] Heart: regular, S1S2 Gastrointestinal: Present: normoactive bowel sounds. Absent: tenderness, distended Integumentary: no rash, warm and dry Neurologic: no focal deficit, no asterixis, alert and oriented x3 Musculoskeletal: Present: other (trace pitting edema in BLE) Psychiatric: mood/affect appropriate, cooperative Results - Lab Results 09/12/17 03:31 09/13/17 03:24 Most recent lab results Calcium 7.3 mg/dL (8.4-10.2) L 09/13/17 03:24 Urine Sodium 10 mmol/L 09/12/17 17:20 Assessment and Plan (1) Bilateral pneumonia Current Visit: Yes Status: Acute Qualifiers: Pneumonia type: due to unspecified organism Lung location: unspecified part of lung Qualified Code(s): J18.9 - Pneumonia, unspecified organism Plan to address problem: on levaquin followed by pulm, cultures are NTD, negative Flu (2) Hyponatremia Current Visit: Yes Status: Acute Plan to address problem: could be secondary to SIADH from pneumonia, corrected Na ~130 mmol/l water resurction ordered 750 cc a day will hold Nacl tabs for now due to h/o CHF and possible pulm edema cont lasix will check urine lytes and osm, and serum osm (3) Hyperglycemia Current Visit: Yes Status: Acute Plan to address problem: per primary team (4) Obesity (BMI 30-39.9) Current Visit: Yes Status: Acute Plan to address problem: Dietary consultation. Thank you for allowing to participate in Mr Martinez's care. please call my cell phone if you have any question [phone]
--- NOTE | 2017-09-13 10:27 | Progress Note ---
Assessment and Plan Assessment and plan: This is a 42-year-old man with a history of hypertension, diabetes, CHF, emergency room with complaints of cough, nonproductive, shortness of breath and decreased energy with generalized weakness since Thursday. 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 The aggregate critical care time was [44 ] minutes. This time is in addition to time spent performing reported procedures but includes the following: [] Data Review and interpretation [] Patient assessment and monitoring of vital signs [] Documentation [] Medication orders and management History Interval history: patient states that he feels thirsty all the time RN states that he keeps asking for water Review of systems Constitutional: No fevers, no joint pains, admits fatigue CVS: No chest pain, no orthopnea, no dyspnea on exertion, no pedal edema GI: No abdominal pain, no diarrhea, no vomiting, no constipation Respiratory: c/o of SOB, but claims it is improving Hospitalist Physical - Physical exam Narrative exam: General.: moderate respiratory distress HEENT: Moist mucous membranes, extraocular muscles intact, no lymphadenopathy Neck: supple Cardiac: S1-S2 heard Lungs: decreased air entry Abdomen: soft , nontender, nondistended, bowel sounds positive Extremities: no edema clubbing or cyanosis Skin: no rash or lesions Neurologic: no gross focal deficits Psych: appropriate behavior, appropriate mood, corporative, judgment intact - Constitutional Vitals: Temp Pulse Resp BP Pulse Ox 97.6 F 98 H 20 115/73 98 09/13/17 09:01 09/13/17 09:03 09/13/17 09:03 09/13/17 03:30 09/13/17 08:16 Results - Labs CBC & Chem 7: 09/12/17 03:31 09/13/17 03:24 Labs: Laboratory Last Values WBC 2.8 K/mm3 (4.5-11.0) L 09/12/17 03:31 RBC 5.91 M/mm3 (3.65-5.03) H 09/12/17 03:31 Hgb 17.1 gm/dl (11.8-15.2) H 09/12/17 03:31 Hct 49.8 % (35.5-45.6) H 09/12/17 03:31 MCV 84 fl (84-94) 09/12/17 03:31 MCH 29 pg (28-32) 09/12/17 03:31 MCHC 34 % (32-34) 09/12/17 03:31 RDW 14.8 % (13.2-15.2) 09/12/17 03:31 Plt Count 94 K/mm3 (140-440) L 09/12/17 03:31 Lymph % (Auto) 18.3 % (13.4-35.0) 09/12/17 03:31 [place] % (Auto) 9.6 % (0.0-7.3) H 09/12/17 03:31 Eos % (Auto) 0.1 % (0.0-4.3) 09/12/17 03:31 Baso % (Auto) 0.2 % (0.0-1.8) 09/12/17 03:31 Lymph # 0.5 K/mm3 (1.2-5.4) L 09/12/17 03:31 [place] # 0.3 K/mm3 (0.0-0.8) 09/12/17 03:31 Eos # 0.0 K/mm3 (0.0-0.4) 09/12/17 03:31 Baso # 0.0 K/mm3 (0.0-0.1) 09/12/17 03:31 Seg Neutrophils % 71.8 % (40.0-70.0) H 09/12/17 03:31 Seg Neutrophils # 2.0 K/mm3 (1.8-7.7) 09/12/17 03:31 PT 12.6 Sec. (12.2-14.9) 09/10/17 21:03 INR 0.90 (0.87-1.13) 09/10/17 21:03 APTT 67.9 Sec. (24.2-36.6) H* 09/10/17 21:03 D-Dimer 565.03 ng/mlDDU (0-234) H 09/10/17 21:03 POC ABG pH 7.397 (7.35-7.45) 09/12/17 11:08 POC ABG pCO2 37.9 (35-45) 09/12/17 11:08 POC ABG pO2 86 (80-105) 09/12/17 11:08 POC ABG HCO3 23.3 09/12/17 11:08 POC ABG Total CO2 24 09/12/17 11:08 POC ABG O2 Sat 97 09/12/17 11:08 POC ABG Base Excess -2 09/12/17 11:08 FiO2 50 % 09/12/17 11:08 Sodium 127 mmol/L (137-145) L 09/13/17 03:24 Potassium 4.8 mmol/L (3.6-5.0) 09/13/17 03:24 Chloride 86.1 mmol/L (98-107) L 09/13/17 03:24 Carbon Dioxide 26 mmol/L (22-30) 09/13/17 03:24 Anion Gap 20 mmol/L 09/13/17 03:24 BUN 35 mg/dL (9-20) H 09/13/17 03:24 Creatinine 1.0 mg/dL (0.8-1.5) 09/13/17 03:24 Estimated GFR > 60 ml/min 09/13/17 03:24 BUN/Creatinine Ratio 35 % 09/13/17 03:24 Glucose 322 mg/dL (75-100) H 09/13/17 03:24 POC Glucose 254 (70-105) H 09/12/17 21:52 Calcium 7.3 mg/dL (8.4-10.2) L 09/13/17 03:24 Total Bilirubin 0.40 mg/dL (0.1-1.2) 09/10/17 21:03 AST 110 units/L (5-40) H 09/10/17 21:03 ALT 49 units/L (7-56) 09/10/17 21:03 Alkaline Phosphatase 82 units/L (35-129) 09/10/17 21:03 Troponin T 0.023 ng/mL (0.00-0.029) 09/11/17 02:19 NT-Pro-B Natriuret Pep 1039 pg/mL (0-450) H 09/10/17 21:03 Total Protein 5.4 g/dL (6.3-8.2) L 09/10/17 21:03 Albumin 2.6 g/dL (3.9-5) L 09/10/17 21:03 Albumin/Globulin Ratio 0.9 % 09/10/17 21:03 Urine Sodium 10 mmol/L 09/12/17 17:20
--- NOTE | 2017-09-13 13:10 | Progress Note ---
Assessment and Plan Acute hypoxemic respiratory failure Bilateral pneumonia Hyponatremia, improving Diabetes, poorly controlled Morbid obesity Erythrocytosis Thrombocytopenia Leukopenia Encephalopathy/delirium -Continue with NIPPV qhs and Prn -High flow oxygen -- continue to wean FiO2 for sats > 90% -continue with antibiotics for CAP, with its severity add ceftriaxone -get 2D echocardiogram to evaluate LVEF and right sided pressures -VTE prophylaxis -Delirium management, probably metabolic/toxic -He does not have traditional risk factors, by history, for HIV but will recommend screening him. Subjective Date of service: 09/13/17 Principal diagnosis: Acute hypoxic respiratory failure, bilateral infiltrates, encephalopathy, Interval history: Follow up for acute hypoxemic respiratory failure, bilateral pulmonary infiltrates, encephalopathy Seen and examined. Vitals, labs, medications, chart and imaging reviewed. Discussed with RN and RT Overnight was noted to be agitated, needing restrains. He does not remember any of the things that were reported, including climbing out of bed, urinary incontinence, agitation Objective - Exam Narrative Exam: General.: moderate respiratory distress on NIPPV, Tachypnic HEENT: Moist mucous membranes, extraocular muscles intact, no lymphadenopathy Neck: supple, no adenopathy, Cardiac: S1-S2 heard, RRR, no murmurs, gallops or rubs Lungs: decreased air entry bilaterally with crackles Abdomen: soft , non tender, non distended, bowel sounds positive Extremities: no edema clubbing or cyanosis Skin: no rash or lesions Neurologic: no gross focal deficits Psych: appropriate behavior, appropriate mood, corporative, judgment intact Vital Signs - 12hr 09/13/17 09/13/17 09/13/17 01:10 01:20 01:30 Temperature Pulse Rate 97 H 97 H 101 H Pulse Rate [ Anterior Bilateral Throughout] Respiratory 21 20 17 Rate Respiratory Rate [Anterior Bilateral Throughout] Blood Pressure 115/73 115/73 115/73 O2 Sat by Pulse 86 87 96 Oximetry 09/13/17 09/13/17 09/13/17 01:40 01:50 01:56 Temperature Pulse Rate 96 H 100 H Pulse Rate [ 99 H Anterior Bilateral Throughout] Respiratory 21 19 Rate Respiratory 24 Rate [Anterior Bilateral Throughout] Blood Pressure 115/73 115/73 O2 Sat by Pulse 87 95 Oximetry 09/13/17 09/13/17 09/13/17 02:00 02:10 02:20 Temperature Pulse Rate 95 H 97 H 96 H Pulse Rate [ 95 H Anterior Bilateral Throughout] Respiratory 21 22 20 Rate Respiratory 22 Rate [Anterior Bilateral Throughout] Blood Pressure 115/73 115/73 115/73 O2 Sat by Pulse 93 92 92 Oximetry 09/13/17 09/13/17 09/13/17 02:30 02:40 02:50 Temperature Pulse Rate 95 H 94 H 97 H Pulse Rate [ Anterior Bilateral Throughout] Respiratory 23 22 22 Rate Respiratory Rate [Anterior Bilateral Throughout] Blood Pressure 115/73 115/73 115/73 O2 Sat by Pulse 91 91 98 Oximetry 09/13/17 09/13/17 09/13/17 03:00 03:10 03:20 Temperature Pulse Rate 96 H 96 H 95 H Pulse Rate [ Anterior Bilateral Throughout] Respiratory 23 18 13 Rate Respiratory Rate [Anterior Bilateral Throughout] Blood Pressure 115/73 115/73 115/73 O2 Sat by Pulse 98 95 97 Oximetry 09/13/17 09/13/17 09/13/17 03:30 03:32 03:40 Temperature 97.7 F Pulse Rate 96 H 95 H Pulse Rate [ Anterior Bilateral Throughout] Respiratory 24 27 H Rate Respiratory Rate [Anterior Bilateral Throughout] Blood Pressure 115/73 115/73 O2 Sat by Pulse 99 97 Oximetry 09/13/17 09/13/17 09/13/17 03:50 04:00 04:10 Temperature Pulse Rate 101 H 97 H 93 H Pulse Rate [ Anterior Bilateral Throughout] Respiratory 17 24 22 Rate Respiratory Rate [Anterior Bilateral Throughout] Blood Pressure 115/73 115/73 115/73 O2 Sat by Pulse 100 97 91 Oximetry 09/13/17 09/13/17 09/13/17 04:20 04:30 04:40 Temperature Pulse Rate 97 H 96 H 95 H Pulse Rate [ Anterior Bilateral Throughout] Respiratory 22 22 26 H Rate Respiratory Rate [Anterior Bilateral Throughout] Blood Pressure 115/73 115/73 115/73 O2 Sat by Pulse 91 96 91 Oximetry 09/13/17 09/13/17 09/13/17 04:50 05:00 05:10 Temperature Pulse Rate 94 H 95 H 93 H Pulse Rate [ Anterior Bilateral Throughout] Respiratory 22 23 21 Rate Respiratory Rate [Anterior Bilateral Throughout] Blood Pressure 115/73 115/73 115/73 O2 Sat by Pulse 93 91 90 Oximetry 09/13/17 09/13/17 09/13/17 05:20 05:30 05:40 Temperature Pulse Rate 94 H 94 H 92 H Pulse Rate [ Anterior Bilateral Throughout] Respiratory 22 21 20 Rate Respiratory Rate [Anterior Bilateral Throughout] Blood Pressure 115/73 115/73 115/73 O2 Sat by Pulse 91 99 90 Oximetry 09/13/17 09/13/17 09/13/17 05:50 06:00 06:10 Temperature Pulse Rate 93 H 91 H 92 H Pulse Rate [ Anterior Bilateral Throughout] Respiratory 22 20 22 Rate Respiratory Rate [Anterior Bilateral Throughout] Blood Pressure 115/73 115/73 115/73 O2 Sat by Pulse 91 91 91 Oximetry 09/13/17 09/13/17 09/13/17 06:20 06:30 06:40 Temperature Pulse Rate 93 H 93 H 96 H Pulse Rate [ Anterior Bilateral Throughout] Respiratory 22 22 23 Rate Respiratory Rate [Anterior Bilateral Throughout] Blood Pressure 115/73 115/73 115/73 O2 Sat by Pulse 95 94 99 Oximetry 09/13/17 09/13/17 09/13/17 06:50 07:00 07:10 Temperature Pulse Rate 93 H 93 H 92 H Pulse Rate [ Anterior Bilateral Throughout] Respiratory 22 22 22 Rate Respiratory Rate [Anterior Bilateral Throughout] Blood Pressure 115/73 115/73 115/73 O2 Sat by Pulse 95 95 92 Oximetry 09/13/17 09/13/17 09/13/17 07:20 07:30 07:40 Temperature Pulse Rate 92 H 96 H 94 H Pulse Rate [ Anterior Bilateral Throughout] Respiratory 22 12 20 Rate Respiratory Rate [Anterior Bilateral Throughout] Blood Pressure 115/73 115/73 115/73 O2 Sat by Pulse 92 99 96 Oximetry 09/13/17 09/13/17 09/13/17 07:50 08:00 08:10 Temperature Pulse Rate 92 H 90 96 H Pulse Rate [ Anterior Bilateral Throughout] Respiratory 23 23 22 Rate Respiratory Rate [Anterior Bilateral Throughout] Blood Pressure 115/73 115/73 115/73 O2 Sat by Pulse 95 97 97 Oximetry 09/13/17 09/13/17 09/13/17 08:16 08:20 08:30 Temperature Pulse Rate 96 H 96 H Pulse Rate [ Anterior Bilateral Throughout] Respiratory 27 H 22 Rate Respiratory Rate [Anterior Bilateral Throughout] Blood Pressure 115/73 115/73 O2 Sat by Pulse 98 97 95 Oximetry 09/13/17 09/13/17 09/13/17 08:37 08:40 08:50 Temperature Pulse Rate 100 H 97 H Pulse Rate [ 98 H Anterior Bilateral Throughout] Respiratory 19 16 Rate Respiratory 22 Rate [Anterior Bilateral Throughout] Blood Pressure 115/73 115/73 O2 Sat by Pulse 95 96 Oximetry 09/13/17 09/13/17 09/13/17 09:00 09:01 09:03 Temperature 97.6 F Pulse Rate 99 H Pulse Rate [ 98 H Anterior Bilateral Throughout] Respiratory 29 H Rate Respiratory 20 Rate [Anterior Bilateral Throughout] Blood Pressure 115/73 O2 Sat by Pulse 96 Oximetry 09/13/17 09/13/17 09/13/17 09:10 09:20 09:30 Temperature Pulse Rate 98 H 100 H 99 H Pulse Rate [ Anterior Bilateral Throughout] Respiratory 24 17 21 Rate Respiratory Rate [Anterior Bilateral Throughout] Blood Pressure 115/73 115/73 115/73 O2 Sat by Pulse 96 97 94 Oximetry 09/13/17 09/13/17 09/13/17 09:40 09:50 10:00 Temperature Pulse Rate 99 H 96 H 94 H Pulse Rate [ Anterior Bilateral Throughout] Respiratory 26 H 21 16 Rate Respiratory Rate [Anterior Bilateral Throughout] Blood Pressure 115/73 115/73 115/73 O2 Sat by Pulse 94 90 95 Oximetry 09/13/17 09/13/17 09/13/17 10:10 10:20 10:30 Temperature Pulse Rate 94 H 94 H 99 H Pulse Rate [ Anterior Bilateral Throughout] Respiratory 20 20 14 Rate Respiratory Rate [Anterior Bilateral Throughout] Blood Pressure 115/73 115/73 115/73 O2 Sat by Pulse 92 92 92 Oximetry 09/13/17 09/13/17 09/13/17 10:40 10:50 11:00 Temperature Pulse Rate 101 H 96 H 96 H Pulse Rate [ Anterior Bilateral Throughout] Respiratory 10 L 26 H 22 Rate Respiratory Rate [Anterior Bilateral Throughout] Blood Pressure 115/73 115/73 115/73 O2 Sat by Pulse 99 92 97 Oximetry 09/13/17 09/13/17 09/13/17 11:10 11:20 11:30 Temperature Pulse Rate 95 H 97 H 96 H Pulse Rate [ Anterior Bilateral Throughout] Respiratory 17 26 H 17 Rate Respiratory Rate [Anterior Bilateral Throughout] Blood Pressure 115/73 115/73 115/73 O2 Sat by Pulse 97 96 96 Oximetry 09/13/17 09/13/17 09/13/17 11:40 11:50 12:00 Temperature Pulse Rate 96 H 95 H 96 H Pulse Rate [ Anterior Bilateral Throughout] Respiratory 22 23 23 Rate Respiratory Rate [Anterior Bilateral Throughout] Blood Pressure 115/73 115/73 115/73 O2 Sat by Pulse 97 95 95 Oximetry Constitutional: no acute distress, lethargic, asleep Eyes: non-icteric ENT: oropharynx dry Neck: supple, no JVD Ascultation: Bilateral: rhonchi Cardiovascular: regular rate and rhythm Gastrointestinal: normoactive bowel sounds, soft, non-tender Integumentary: normal, rash Extremities: no cyanosis, no edema Neurologic: unable to assess Psychiatric: other (Unable to assess due mental status.) CBC and BMP: 09/14/17 12:01 09/15/17 04:30 ABG, PT/INR, D-dimer: ABG POC ABG pH 7.397 (7.35-7.45) 09/12/17 11:08 POC ABG pCO2 37.9 (35-45) 09/12/17 11:08 POC ABG pO2 86 (80-105) 09/12/17 11:08 POC ABG HCO3 23.3 09/12/17 11:08 POC ABG Total CO2 24 09/12/17 11:08 POC ABG O2 Sat 97 09/12/17 11:08 PT/INR, D-dimer PT 12.6 Sec. (12.2-14.9) 09/10/17 21:03 INR 0.90 (0.87-1.13) 09/10/17 21:03 D-Dimer 565.03 ng/mlDDU (0-234) H 09/10/17 21:03 Abnormal lab findings: Abnormal Labs 09/10/17 09/10/17 09/10/17 21:03 21:03 21:03 WBC RBC 6.16 H Hgb 17.9 H Hct 52.9 H Plt Count 126 L Lymph % (Auto) 8.5 L [place] % (Auto) Lymph # 0.4 L Seg Neutrophils % 85.2 H APTT 67.9 H* D-Dimer 565.03 H POC ABG pH POC ABG pCO2 POC ABG pO2 Sodium 124 L Chloride 82.7 L Carbon Dioxide 21 L BUN 25 H Glucose 320 H POC Glucose Calcium AST 110 H NT-Pro-B Natriuret Pep 1039 H Total Protein 5.4 L Albumin 2.6 L 09/10/17 09/10/17 09/11/17 21:27 23:24 12:57 WBC RBC Hgb Hct Plt Count Lymph % (Auto) [place] % (Auto) Lymph # Seg Neutrophils % APTT D-Dimer POC ABG pH POC ABG pCO2 32.1 L POC ABG pO2 Sodium Chloride Carbon Dioxide BUN Glucose POC Glucose 254 H 219 H Calcium AST NT-Pro-B Natriuret Pep Total Protein Albumin 09/11/17 09/11/17 09/11/17 16:18 20:51 21:47 WBC RBC Hgb Hct Plt Count Lymph % (Auto) [place] % (Auto) Lymph # Seg Neutrophils % APTT D-Dimer POC ABG pH 7.455 H POC ABG pCO2 33.3 L POC ABG pO2 68 L Sodium Chloride Carbon Dioxide BUN Glucose POC Glucose 300 H 253 H Calcium AST NT-Pro-B Natriuret Pep Total Protein Albumin 09/12/17 09/12/17 09/12/17 03:31 03:31 08:14 WBC 2.8 L RBC 5.91 H Hgb 17.1 H Hct 49.8 H Plt Count 94 L Lymph % (Auto) [place] % (Auto) 9.6 H Lymph # 0.5 L Seg Neutrophils % 71.8 H APTT D-Dimer POC ABG pH POC ABG pCO2 POC ABG pO2 Sodium 122 L Chloride 84.4 L Carbon Dioxide BUN 28 H Glucose 270 H POC Glucose 207 H Calcium 7.5 L AST NT-Pro-B Natriuret Pep Total Protein Albumin 09/12/17 09/12/17 09/12/17 11:36 17:41 21:52 WBC RBC Hgb Hct Plt Count Lymph % (Auto) [place] % (Auto) Lymph # Seg Neutrophils % APTT D-Dimer POC ABG pH POC ABG pCO2 POC ABG pO2 Sodium Chloride Carbon Dioxide BUN Glucose POC Glucose 264 H 295 H 254 H Calcium AST NT-Pro-B Natriuret Pep Total Protein Albumin 09/13/17 09/13/17 03:24 12:15 WBC RBC Hgb Hct Plt Count Lymph % (Auto) [place] % (Auto) Lymph # Seg Neutrophils % APTT D-Dimer POC ABG pH POC ABG pCO2 POC ABG pO2 Sodium 127 L Chloride 86.1 L Carbon Dioxide BUN 35 H Glucose 322 H POC Glucose 274 H Calcium 7.3 L AST NT-Pro-B Natriuret Pep Total Protein Albumin Chest x-ray: image reviewed CT scan - chest: image reviewed Allied health notes reviewed: RT
[2017-09-13 15:04] LABS: Creatinine,Urine 47.9 mg/dL (0.1-20.0)
[2017-09-13] MEDS: cefTRIAXone 1 GM in NACL 0.9% 20 ML IV SCH (17:04)
[2017-09-13] MEDS ORDERED: HALDOL IV ONE (20:00)
[2017-09-13] MEDS: LEVAQUIN 750MG/150ML 750 MG/150 ML BAG IV SCH (21:34)
[2017-09-14 03:44] LABS: BUN/Creatinine Ratio 39; Blood Urea Nitrogen 31 mg/dL (9-20); Calcium 7.1 mg/dL (8.4-10.2); Hemolysis Index 12
[2017-09-14] MEDS: NOVOLOG SUB-Q SCH ×4 (08:10→22:00)
[2017-09-14] MEDS: DUONEB *Not for PRN Use IH SCH ×3 (08:37→19:01)
[2017-09-14] MEDS: LASIX PO SCH (09:15)
[2017-09-14] MEDS: LOVENOX SUB-Q SCH (09:16)
[2017-09-14] MEDS: PROTONIX PO SCH (09:16)
--- NOTE | 2017-09-14 11:21 | Progress Note ---
Assessment and Plan Acute hypoxemic respiratory failure Bilateral pneumonia vs Pulmonary Edema Hyponatremia Diabetes, poorly controlled Morbid obesity Erythrocytosis Thrombocytopenia Leukopenia - Continue with NIPPV qhs with prn daytime use - get dopplers to complete VTE w/up - suspect post-viral pneumonia - continue to wean FiO2 for sats > 90% - continue empiric Ab's - get CD4 count - taper systemic steroids - continue gentle diuresis - repeat CXR - repeat CRP, Lactate and CBC to help answer pulm edema vs pneumonia question ( BNP 1039 at admission) - continue GI & VTE prophylaxis - hyponatremia improved (? SIADH) - delirium much improved - follow 2D ECHO re: ? CHF ? Pulm HTN but also ? SBE with metastatic pneumonia - continue other care per attending / other consultants - will observe in ICU overnight - will consider screening for connective tissue disorder depending on clinical progression ...36' Subjective Date of service: 09/14/17 Principal diagnosis: Acute hypoxic respiratory failure, bilateral infiltrates, encephalopathy, Interval history: Patient is seen today for: Acute hypoxic respiratory failure, bilateral infiltrates, encephalopathy, Seen and examined at bedside; 24hour events reviewed; nursing and respiratory care staff consulted; no adverse overnight events reported to me; resting in bed ; still SOB and with FLORES; denies any h/o emesis or overt aspiration in the past 1-2 weeks; still with some pleuritic chest pains; denies h/o flu vaccination; no hemoptysis; on 70% FiO2 via HFNC Objective Vital Signs - 12hr 09/13/17 09/13/17 09/13/17 23:30 23:40 23:50 Temperature Pulse Rate 105 H 106 H 98 H Pulse Rate [ Anterior Bilateral Throughout] Pulse Rate [ From Monitor] Respiratory 12 22 18 Rate Respiratory Rate [Anterior Bilateral Throughout] Blood Pressure 115/73 115/73 115/73 O2 Sat by Pulse 94 85 97 Oximetry 09/14/17 09/14/17 09/14/17 00:00 00:10 00:20 Temperature 97.7 F Pulse Rate 109 H 109 H 103 H Pulse Rate [ Anterior Bilateral Throughout] Pulse Rate [ 99 H From Monitor] Respiratory 20 21 19 Rate Respiratory Rate [Anterior Bilateral Throughout] Blood Pressure 115/73 115/73 128/89 O2 Sat by Pulse 98 99 99 Oximetry 09/14/17 09/14/17 09/14/17 00:30 00:40 00:46 Temperature Pulse Rate 100 H 97 H 98 H Pulse Rate [ Anterior Bilateral Throughout] Pulse Rate [ From Monitor] Respiratory 19 16 17 Rate Respiratory Rate [Anterior Bilateral Throughout] Blood Pressure 128/89 128/89 O2 Sat by Pulse 97 96 95 Oximetry 09/14/17 09/14/17 09/14/17 00:50 01:00 01:10 Temperature Pulse Rate 98 H 98 H 95 H Pulse Rate [ Anterior Bilateral Throughout] Pulse Rate [ From Monitor] Respiratory 18 19 17 Rate Respiratory Rate [Anterior Bilateral Throughout] Blood Pressure 128/89 117/82 117/82 O2 Sat by Pulse 96 91 95 Oximetry 09/14/17 09/14/17 09/14/17 01:20 01:30 01:40 Temperature Pulse Rate 95 H 93 H 92 H Pulse Rate [ Anterior Bilateral Throughout] Pulse Rate [ From Monitor] Respiratory 19 16 16 Rate Respiratory Rate [Anterior Bilateral Throughout] Blood Pressure 117/82 117/82 117/82 O2 Sat by Pulse 96 96 96 Oximetry 09/14/17 09/14/17 09/14/17 01:50 02:00 02:10 Temperature Pulse Rate 103 H 98 H 103 H Pulse Rate [ Anterior Bilateral Throughout] Pulse Rate [ From Monitor] Respiratory 12 19 19 Rate Respiratory Rate [Anterior Bilateral Throughout] Blood Pressure 117/82 117/82 117/82 O2 Sat by Pulse 98 95 97 Oximetry 09/14/17 09/14/17 09/14/17 02:20 02:30 02:40 Temperature Pulse Rate 99 H 101 H 107 H Pulse Rate [ Anterior Bilateral Throughout] Pulse Rate [ From Monitor] Respiratory 20 13 21 Rate Respiratory Rate [Anterior Bilateral Throughout] Blood Pressure 118/84 118/84 118/84 O2 Sat by Pulse 97 98 93 Oximetry 09/14/17 09/14/17 09/14/17 02:50 03:00 03:10 Temperature Pulse Rate 102 H 102 H 99 H Pulse Rate [ Anterior Bilateral Throughout] Pulse Rate [ From Monitor] Respiratory 23 22 21 Rate Respiratory Rate [Anterior Bilateral Throughout] Blood Pressure 118/84 124/85 124/85 O2 Sat by Pulse 92 87 91 Oximetry 09/14/17 09/14/17 09/14/17 03:20 03:30 03:40 Temperature Pulse Rate 98 H 103 H 95 H Pulse Rate [ Anterior Bilateral Throughout] Pulse Rate [ From Monitor] Respiratory 22 13 19 Rate Respiratory Rate [Anterior Bilateral Throughout] Blood Pressure 124/85 124/85 124/85 O2 Sat by Pulse 89 94 92 Oximetry 09/14/17 09/14/17 09/14/17 03:50 04:00 04:10 Temperature 97.2 F L Pulse Rate 95 H 96 H 94 H Pulse Rate [ Anterior Bilateral Throughout] Pulse Rate [ From Monitor] Respiratory 21 20 19 Rate Respiratory Rate [Anterior Bilateral Throughout] Blood Pressure 124/85 117/83 117/83 O2 Sat by Pulse 88 91 89 Oximetry 09/14/17 09/14/17 09/14/17 04:20 04:30 04:40 Temperature Pulse Rate 101 H 106 H 96 H Pulse Rate [ Anterior Bilateral Throughout] Pulse Rate [ From Monitor] Respiratory 14 23 21 Rate Respiratory Rate [Anterior Bilateral Throughout] Blood Pressure 117/83 117/83 117/83 O2 Sat by Pulse 90 92 90 Oximetry 09/14/17 09/14/17 09/14/17 04:50 05:00 05:10 Temperature Pulse Rate 95 H 96 H 92 H Pulse Rate [ Anterior Bilateral Throughout] Pulse Rate [ From Monitor] Respiratory 22 17 20 Rate Respiratory Rate [Anterior Bilateral Throughout] Blood Pressure 117/83 106/72 106/72 O2 Sat by Pulse 91 88 89 Oximetry 09/14/17 09/14/17 09/14/17 05:20 05:30 05:40 Temperature Pulse Rate 99 H 91 H 93 H Pulse Rate [ Anterior Bilateral Throughout] Pulse Rate [ From Monitor] Respiratory 22 19 21 Rate Respiratory Rate [Anterior Bilateral Throughout] Blood Pressure 106/72 106/72 106/72 O2 Sat by Pulse 94 90 91 Oximetry 09/14/17 09/14/17 09/14/17 05:50 06:00 06:10 Temperature Pulse Rate 97 H 105 H Pulse Rate [ Anterior Bilateral Throughout] Pulse Rate [ From Monitor] Respiratory 21 20 17 Rate Respiratory Rate [Anterior Bilateral Throughout] Blood Pressure 106/72 121/87 121/87 O2 Sat by Pulse 95 91 96 Oximetry 09/14/17 09/14/17 09/14/17 06:20 06:30 06:40 Temperature Pulse Rate 95 H 92 H 94 H Pulse Rate [ Anterior Bilateral Throughout] Pulse Rate [ From Monitor] Respiratory 25 H 19 22 Rate Respiratory Rate [Anterior Bilateral Throughout] Blood Pressure 121/87 121/87 121/87 O2 Sat by Pulse 93 92 92 Oximetry 09/14/17 09/14/1718 06:50 07:00 07:10 Temperature Pulse Rate 93 H 98 H 104 H Pulse Rate [ Anterior Bilateral Throughout] Pulse Rate [ From Monitor] Respiratory 21 15 13 Rate Respiratory Rate [Anterior Bilateral Throughout] Blood Pressure 121/87 121/87 121/87 O2 Sat by Pulse 92 99 96 Oximetry 09/14/17 09/14/17 09/14/17 07:20 07:30 07:40 Temperature Pulse Rate 104 H 104 H 96 H Pulse Rate [ Anterior Bilateral Throughout] Pulse Rate [ From Monitor] Respiratory 15 29 H 23 Rate Respiratory Rate [Anterior Bilateral Throughout] Blood Pressure 121/87 121/87 121/87 O2 Sat by Pulse 97 93 96 Oximetry 09/14/17 09/14/17 09/14/17 07:50 08:00 08:10 Temperature 97.5 F L Pulse Rate 97 H 112 H 103 H Pulse Rate [ Anterior Bilateral Throughout] Pulse Rate [ From Monitor] Respiratory 22 24 21 Rate Respiratory Rate [Anterior Bilateral Throughout] Blood Pressure 121/87 121/87 134/79 O2 Sat by Pulse 97 96 Oximetry 09/14/17 09/14/17 09/14/17 08:20 08:30 08:40 Temperature Pulse Rate 107 H 104 H Pulse Rate [ 102 H 103 H Anterior Bilateral Throughout] Pulse Rate [ From Monitor] Respiratory 19 25 H 26 H Rate Respiratory 18 18 Rate [Anterior Bilateral Throughout] Blood Pressure 134/79 134/79 134/79 O2 Sat by Pulse 93 95 94 Oximetry 09/14/17 09/14/17 09/14/17 08:42 08:50 09:00 Temperature Pulse Rate 104 H 100 H Pulse Rate [ Anterior Bilateral Throughout] Pulse Rate [ From Monitor] Respiratory 14 26 H Rate Respiratory Rate [Anterior Bilateral Throughout] Blood Pressure 134/79 109/76 O2 Sat by Pulse 92 94 92 Oximetry 09/14/17 09/14/17 09/14/17 09:10 09:20 09:30 Temperature Pulse Rate 102 H 100 H 94 H Pulse Rate [ Anterior Bilateral Throughout] Pulse Rate [ From Monitor] Respiratory 21 23 22 Rate Respiratory Rate [Anterior Bilateral Throughout] Blood Pressure 109/76 109/76 109/76 O2 Sat by Pulse 93 94 93 Oximetry 09/14/17 09/14/17 09/14/17 09:40 09:50 10:00 Temperature Pulse Rate 97 H 96 H 96 H Pulse Rate [ Anterior Bilateral Throughout] Pulse Rate [ From Monitor] Respiratory 19 22 21 Rate Respiratory Rate [Anterior Bilateral Throughout] Blood Pressure 109/76 109/76 109/76 O2 Sat by Pulse 94 95 94 Oximetry 09/14/17 09/14/17 09/14/17 10:10 10:20 10:30 Temperature Pulse Rate 95 H 101 H 98 H Pulse Rate [ Anterior Bilateral Throughout] Pulse Rate [ From Monitor] Respiratory 20 21 13 Rate Respiratory Rate [Anterior Bilateral Throughout] Blood Pressure 109/76 109/76 109/76 O2 Sat by Pulse 95 97 100 Oximetry 09/14/17 09/14/17 10:40 10:50 Temperature Pulse Rate 98 H 96 H Pulse Rate [ Anterior Bilateral Throughout] Pulse Rate [ From Monitor] Respiratory 23 22 Rate Respiratory Rate [Anterior Bilateral Throughout] Blood Pressure 105/71 105/71 O2 Sat by Pulse 97 96 Oximetry Constitutional: appears uncomfortable, other (somnolent) Eyes: non-icteric ENT: oropharynx moist, other (No thyromegaly) Neck: supple, no lymphadenopathy, no JVD Effort: mildly labored Ascultation: Bilateral: diminished breath sounds, rhonchi Percussion: Bilateral: not dull Cardiovascular: regular rate and rhythm, other (no rubs or murmurs) Gastrointestinal: normoactive bowel sounds, soft, non-tender, non-distended, other (No HSM) Integumentary: normal Extremities: no cyanosis, no edema, pulses normal, no ischemia or petechiae Neurologic: normal mental status, non-focal exam, pupils equal and round, motor strength normal and, other (weak) Psychiatric: mood appropriate, affect normal CBC and BMP: 09/14/17 12:01 09/14/17 12:01 ABG, PT/INR, D-dimer: ABG POC ABG pH 7.397 (7.35-7.45) 09/12/17 11:08 POC ABG pCO2 37.9 (35-45) 09/12/17 11:08 POC ABG pO2 86 (80-105) 09/12/17 11:08 POC ABG HCO3 23.3 09/12/17 11:08 POC ABG Total CO2 24 09/12/17 11:08 POC ABG O2 Sat 97 09/12/17 11:08 PT/INR, D-dimer PT 12.6 Sec. (12.2-14.9) 09/10/17 21:03 INR 0.90 (0.87-1.13) 09/10/17 21:03 D-Dimer 565.03 ng/mlDDU (0-234) H 09/10/17 21:03 Abnormal lab findings: Abnormal Labs 09/10/17 09/10/17 09/10/17 21:03 21:03 21:03 WBC RBC 6.16 H Hgb 17.9 H Hct 52.9 H Plt Count 126 L Lymph % (Auto) 8.5 L [place] % (Auto) Lymph # 0.4 L Seg Neutrophils % 85.2 H APTT 67.9 H* D-Dimer 565.03 H POC ABG pH POC ABG pCO2 POC ABG pO2 Sodium 124 L Chloride 82.7 L Carbon Dioxide 21 L BUN 25 H Glucose 320 H POC Glucose Calcium AST 110 H NT-Pro-B Natriuret Pep 1039 H Total Protein 5.4 L Albumin 2.6 L Urine Creatinine 09/10/17 09/10/17 09/11/17 21:27 23:24 12:57 WBC RBC Hgb Hct Plt Count Lymph % (Auto) [place] % (Auto) Lymph # Seg Neutrophils % APTT D-Dimer POC ABG pH POC ABG pCO2 32.1 L POC ABG pO2 Sodium Chloride Carbon Dioxide BUN Glucose POC Glucose 254 H 219 H Calcium AST NT-Pro-B Natriuret Pep Total Protein Albumin Urine Creatinine 09/11/17 09/11/17 09/11/17 16:18 20:51 21:47 WBC RBC Hgb Hct Plt Count Lymph % (Auto) [place] % (Auto) Lymph # Seg Neutrophils % APTT D-Dimer POC ABG pH 7.455 H POC ABG pCO2 33.3 L POC ABG pO2 68 L Sodium Chloride Carbon Dioxide BUN Glucose POC Glucose 300 H 253 H Calcium AST NT-Pro-B Natriuret Pep Total Protein Albumin Urine Creatinine 09/12/17 09/12/17 09/12/17 03:31 03:31 08:14 WBC 2.8 L RBC 5.91 H Hgb 17.1 H Hct 49.8 H Plt Count 94 L Lymph % (Auto) [place] % (Auto) 9.6 H Lymph # 0.5 L Seg Neutrophils % 71.8 H APTT D-Dimer POC ABG pH POC ABG pCO2 POC ABG pO2 Sodium 122 L Chloride 84.4 L Carbon Dioxide BUN 28 H Glucose 270 H POC Glucose 207 H Calcium 7.5 L AST NT-Pro-B Natriuret Pep Total Protein Albumin Urine Creatinine 09/12/17 09/12/17 09/12/17 11:36 17:41 21:52 WBC RBC Hgb Hct Plt Count Lymph % (Auto) [place] % (Auto) Lymph # Seg Neutrophils % APTT D-Dimer POC ABG pH POC ABG pCO2 POC ABG pO2 Sodium Chloride Carbon Dioxide BUN Glucose POC Glucose 264 H 295 H 254 H Calcium AST NT-Pro-B Natriuret Pep Total Protein Albumin Urine Creatinine 09/13/17 09/13/17 09/13/17 03:24 11:30 12:15 WBC RBC Hgb Hct Plt Count Lymph % (Auto) [place] % (Auto) Lymph # Seg Neutrophils % APTT D-Dimer POC ABG pH POC ABG pCO2 POC ABG pO2 Sodium 127 L Chloride 86.1 L Carbon Dioxide BUN 35 H Glucose 322 H POC Glucose 274 H Calcium 7.3 L AST NT-Pro-B Natriuret Pep Total Protein Albumin Urine Creatinine 47.9 H 09/13/17 09/14/17 09/14/17 21:36 03:05 07:40 WBC RBC Hgb Hct Plt Count Lymph % (Auto) [place] % (Auto) Lymph # Seg Neutrophils % APTT D-Dimer POC ABG pH POC ABG pCO2 POC ABG pO2 Sodium 129 L Chloride 89.7 L Carbon Dioxide BUN 31 H Glucose 281 H POC Glucose 294 H 257 H Calcium 7.1 L AST NT-Pro-B Natriuret Pep Total Protein Albumin Urine Creatinine CT scan - chest: image reviewed (bilateral patchy infiltrates; No P.E.; no pneumothorax; no mediastinopathy; motion artefact) Allied health notes reviewed: RT
[2017-09-14 12:53] LABS: Basophils # (Auto) 0.2 K/mm3 (0.0-0.1); Basophils % (Auto) 1.3 % (0.0-1.8); Hemoglobin 16.6 gm/dl (11.8-15.2); Lymphocytes # (Auto) 0.5 K/mm3 (1.2-5.4); Lymphocytes % (Auto) 3.4 % (13.4-35.0); Mean Corpuscular HGB Conc 33 % (32-34); Mean Corpuscular Hemoglobin 28 pg (28-32); Mean Corpuscular Volume 85 fl (84-94); Monocytes # (Auto) 0.7 K/mm3 (0.0-0.8); Monocytes % (Auto) 5.4 % (0.0-7.3); Platelet Count 202 K/mm3 (140-440); Red Blood Count 5.86 M/mm3 (3.65-5.03); Red Cell Distribution Width 15.2 % (13.2-15.2)
--- NOTE | 2017-09-14 13:44 | Progress Note ---
Assessment and Plan (1) Bilateral pneumonia Current Visit: Yes Status: Acute Qualifiers: Pneumonia type: due to unspecified organism Lung location: unspecified part of lung Qualified Code(s): J18.9 - Pneumonia, unspecified organism Plan to address problem: On Abx Per Pulmonary (2) Hyponatremia, Hypotonic Current Visit: Yes Status: Acute Plan to address problem: Could be secondary to SIADH from pneumonia water resurction ordered 750 cc a day No Nacl tabs for now due to h/o CHF and possible pulm edema continue lasix Improving (3) Diabetes mellitus on Insulin: Current Visit: Yes Status: Acute Plan to address problem: On Insulin. per primary team (4) Obesity (BMI 30-39.9) Current Visit: Yes Status: Acute Plan to address problem: Dietary consultation. Maximiliano Wu MD [phone] Subjective Date of service: 09/14/17 Principal diagnosis: Acute hypoxic respiratory failure, bilateral infiltrates, encephalopathy, Interval history: On high flow O2. Making good urine. Objective - Exam Narrative Exam: General appearance: well-developed, well-nourished EENT: ATNC, PERRL, mucous membranes moist Neck: Present: neck supple Respiratory: Coarse BS BL Heart: regular, S1S2 Gastrointestinal: Present: normoactive bowel sounds. Absent: tenderness, distended Integumentary: no rash, warm and dry Neurologic: no focal deficit, no asterixis, alert and oriented x3 Musculoskeletal: Present: Trace BLE edema Psychiatric: mood/affect appropriate, cooperative - Vital Signs Vital signs: Vital Signs - 12hr 09/14/17 09/14/17 09/14/17 01:50 02:00 02:10 Temperature Pulse Rate 103 H 98 H 103 H Pulse Rate [ Anterior Bilateral Throughout] Respiratory 12 19 19 Rate Respiratory Rate [Anterior Bilateral Throughout] Blood Pressure 117/82 117/82 117/82 O2 Sat by Pulse 98 95 97 Oximetry 09/14/17 09/14/17 09/14/17 02:20 02:30 02:40 Temperature Pulse Rate 99 H 101 H 107 H Pulse Rate [ Anterior Bilateral Throughout] Respiratory 20 13 21 Rate Respiratory Rate [Anterior Bilateral Throughout] Blood Pressure 118/84 118/84 118/84 O2 Sat by Pulse 97 98 93 Oximetry 09/14/17 09/14/17 09/14/17 02:50 03:00 03:10 Temperature Pulse Rate 102 H 102 H 99 H Pulse Rate [ Anterior Bilateral Throughout] Respiratory 23 22 21 Rate Respiratory Rate [Anterior Bilateral Throughout] Blood Pressure 118/84 124/85 124/85 O2 Sat by Pulse 92 87 91 Oximetry 09/14/17 09/14/17 09/14/17 03:20 03:30 03:40 Temperature Pulse Rate 98 H 103 H 95 H Pulse Rate [ Anterior Bilateral Throughout] Respiratory 22 13 19 Rate Respiratory Rate [Anterior Bilateral Throughout] Blood Pressure 124/85 124/85 124/85 O2 Sat by Pulse 89 94 92 Oximetry 09/14/17 09/14/17 09/14/17 03:50 04:00 04:10 Temperature 97.2 F L Pulse Rate 95 H 96 H 94 H Pulse Rate [ Anterior Bilateral Throughout] Respiratory 21 20 19 Rate Respiratory Rate [Anterior Bilateral Throughout] Blood Pressure 124/85 117/83 117/83 O2 Sat by Pulse 88 91 89 Oximetry 09/14/17 09/14/17 09/14/17 04:20 04:30 04:40 Temperature Pulse Rate 101 H 106 H 96 H Pulse Rate [ Anterior Bilateral Throughout] Respiratory 14 23 21 Rate Respiratory Rate [Anterior Bilateral Throughout] Blood Pressure 117/83 117/83 117/83 O2 Sat by Pulse 90 92 90 Oximetry 09/14/17 09/14/17 09/14/17 04:50 05:00 05:10 Temperature Pulse Rate 95 H 96 H 92 H Pulse Rate [ Anterior Bilateral Throughout] Respiratory 22 17 20 Rate Respiratory Rate [Anterior Bilateral Throughout] Blood Pressure 117/83 106/72 106/72 O2 Sat by Pulse 91 88 89 Oximetry 09/14/17 09/14/17 09/14/17 05:20 05:30 05:40 Temperature Pulse Rate 99 H 91 H 93 H Pulse Rate [ Anterior Bilateral Throughout] Respiratory 22 19 21 Rate Respiratory Rate [Anterior Bilateral Throughout] Blood Pressure 106/72 106/72 106/72 O2 Sat by Pulse 94 90 91 Oximetry 09/14/17 09/14/17 09/14/17 05:50 06:00 06:10 Temperature Pulse Rate 97 H 105 H Pulse Rate [ Anterior Bilateral Throughout] Respiratory 21 20 17 Rate Respiratory Rate [Anterior Bilateral Throughout] Blood Pressure 106/72 121/87 121/87 O2 Sat by Pulse 95 91 96 Oximetry 09/14/17 09/14/17 09/14/17 06:20 06:30 06:40 Temperature Pulse Rate 95 H 92 H 94 H Pulse Rate [ Anterior Bilateral Throughout] Respiratory 25 H 19 22 Rate Respiratory Rate [Anterior Bilateral Throughout] Blood Pressure 121/87 121/87 121/87 O2 Sat by Pulse 93 92 92 Oximetry 09/14/17 09/14/17 09/14/17 06:50 07:00 07:10 Temperature Pulse Rate 93 H 98 H 104 H Pulse Rate [ Anterior Bilateral Throughout] Respiratory 21 15 13 Rate Respiratory Rate [Anterior Bilateral Throughout] Blood Pressure 121/87 121/87 121/87 O2 Sat by Pulse 92 99 96 Oximetry 09/14/17 09/14/17 09/14/17 07:20 07:30 07:40 Temperature Pulse Rate 104 H 104 H 96 H Pulse Rate [ Anterior Bilateral Throughout] Respiratory 15 29 H 23 Rate Respiratory Rate [Anterior Bilateral Throughout] Blood Pressure 121/87 121/87 121/87 O2 Sat by Pulse 97 93 96 Oximetry 09/14/17 09/14/17 09/14/17 07:50 08:00 08:10 Temperature 97.5 F L Pulse Rate 97 H 112 H 103 H Pulse Rate [ Anterior Bilateral Throughout] Respiratory 22 24 21 Rate Respiratory Rate [Anterior Bilateral Throughout] Blood Pressure 121/87 121/87 134/79 O2 Sat by Pulse 97 96 Oximetry 09/14/17 09/14/17 09/14/17 08:20 08:30 08:40 Temperature Pulse Rate 107 H 104 H Pulse Rate [ 102 H 103 H Anterior Bilateral Throughout] Respiratory 19 25 H 26 H Rate Respiratory 18 18 Rate [Anterior Bilateral Throughout] Blood Pressure 134/79 134/79 134/79 O2 Sat by Pulse 93 95 94 Oximetry 09/14/17 09/14/17 09/14/17 08:42 08:50 09:00 Temperature Pulse Rate 104 H 100 H Pulse Rate [ Anterior Bilateral Throughout] Respiratory 14 26 H Rate Respiratory Rate [Anterior Bilateral Throughout] Blood Pressure 134/79 109/76 O2 Sat by Pulse 92 94 92 Oximetry 09/14/17 09/14/17 09/14/17 09:10 09:20 09:30 Temperature Pulse Rate 102 H 100 H 94 H Pulse Rate [ Anterior Bilateral Throughout] Respiratory 21 23 22 Rate Respiratory Rate [Anterior Bilateral Throughout] Blood Pressure 109/76 109/76 109/76 O2 Sat by Pulse 93 94 93 Oximetry 01/04/2409/14/17 09/14/17 09:40 09:50 10:00 Temperature Pulse Rate 97 H 96 H 96 H Pulse Rate [ Anterior Bilateral Throughout] Respiratory 19 22 21 Rate Respiratory Rate [Anterior Bilateral Throughout] Blood Pressure 109/76 109/76 109/76 O2 Sat by Pulse 94 95 94 Oximetry 09/14/17 09/14/17 09/14/17 10:10 10:20 10:30 Temperature Pulse Rate 95 H 101 H 98 H Pulse Rate [ Anterior Bilateral Throughout] Respiratory 20 21 13 Rate Respiratory Rate [Anterior Bilateral Throughout] Blood Pressure 109/76 109/76 109/76 O2 Sat by Pulse 95 97 100 Oximetry 09/14/17 09/14/17 09/14/17 10:40 10:50 11:00 Temperature Pulse Rate 98 H 96 H 97 H Pulse Rate [ Anterior Bilateral Throughout] Respiratory 23 22 21 Rate Respiratory Rate [Anterior Bilateral Throughout] Blood Pressure 105/71 105/71 99/62 O2 Sat by Pulse 97 96 96 Oximetry 09/14/17 09/14/17 09/14/17 11:10 11:20 11:30 Temperature Pulse Rate 95 H 115 H 107 H Pulse Rate [ Anterior Bilateral Throughout] Respiratory 20 20 24 Rate Respiratory Rate [Anterior Bilateral Throughout] Blood Pressure 99/62 99/62 99/62 O2 Sat by Pulse 95 Oximetry 09/14/17 09/14/17 09/14/17 11:40 11:50 12:00 Temperature 97.4 F L Pulse Rate 107 H 103 H 116 H Pulse Rate [ Anterior Bilateral Throughout] Respiratory 15 9 L 23 Rate Respiratory Rate [Anterior Bilateral Throughout] Blood Pressure 99/62 99/62 99/62 O2 Sat by Pulse 95 95 Oximetry 09/14/17 09/14/17 09/14/17 12:10 12:20 12:30 Temperature Pulse Rate 106 H 102 H 104 H Pulse Rate [ Anterior Bilateral Throughout] Respiratory 20 25 H 15 Rate Respiratory Rate [Anterior Bilateral Throughout] Blood Pressure 99/62 99/62 99/62 O2 Sat by Pulse 86 96 92 Oximetry - Lab 09/14/17 12:01 09/14/17 03:05 Most recent lab results Calcium 7.1 mg/dL (8.4-10.2) L 09/14/17 03:05 Urine Creatinine 47.9 mg/dL (0.1-20.0) H 09/13/17 11:30 Urine Sodium 10 mmol/L 09/13/17 11:30
[2017-09-14 14:45] LABS: BUN/Creatinine Ratio 40; Blood Urea Nitrogen 32 mg/dL (9-20); Calcium 7.4 mg/dL (8.4-10.2); Hemolysis Index 24
--- NOTE | 2017-09-14 15:39 | Progress Note ---
Assessment and Plan Assessment and plan: This is a 42-year-old man with a history of hypertension, diabetes, CHF, emergency room with complaints of cough, nonproductive, shortness of breath and decreased energy with generalized weakness since Thursday. Patient was hypoxic in the emergency room and placed on BiPAP acute hypoxic Respiratory failure * likely due to pna, PE was ruled out by CTA * continue nebs, add steroids, pulmonology consult * continue BIPAP and high flow oxygen Sepsis * continue sepsis pathway Bilateral pneumonia, likely due to gram positive * continue abx Hypertension * continue BP meds Diabetes, type 2 * SSI hyponatremia likely SIADH, improving, dw senior dentist -dc salt tab, continue water restriction CHF, stable appears euvolemic check echo Thrombocytopenia mild and stable, monitor The high probability of a clinically significant, sudden or life threatening deterioration of the [pulmonary, cv, renal) system(s) required my full and direct attention, intervention and personal management. The aggregate critical care time was [44 ] minutes. This time is in addition to time spent performing reported procedures but includes the following: [] Data Review and interpretation [] Patient assessment and monitoring of vital signs [] Documentation [] Medication orders and management History Interval history: patient states that he feels thirsty all the time RN states that he keeps asking for water Review of systems Constitutional: No fevers, no joint pains, admits fatigue CVS: No chest pain, no orthopnea, no dyspnea on exertion, no pedal edema GI: No abdominal pain, no diarrhea, no vomiting, no constipation Respiratory: c/o of SOB, but claims it is improving Hospitalist Physical - Physical exam Narrative exam: General.: moderate respiratory distress HEENT: Moist mucous membranes, extraocular muscles intact, no lymphadenopathy Neck: supple Cardiac: S1-S2 heard Lungs: decreased air entry Abdomen: soft , nontender, nondistended, bowel sounds positive Extremities: no edema clubbing or cyanosis Skin: no rash or lesions Neurologic: no gross focal deficits Psych: appropriate behavior, appropriate mood, corporative, judgment intact - Constitutional Vitals: Temp Pulse Resp BP Pulse Ox 97.4 F L 101 H 18 126/52 97 09/14/17 12:00 09/14/17 15:03 09/14/17 15:03 09/14/17 14:40 09/14/17 14:40 Results - Labs CBC & Chem 7: 09/14/17 12:01 09/14/17 12:01 Labs: Laboratory Last Values WBC 13.5 K/mm3 (4.5-11.0) H 09/14/17 12:01 RBC 5.86 M/mm3 (3.65-5.03) H 09/14/17 12:01 Hgb 16.6 gm/dl (11.8-15.2) H 09/14/17 12:01 Hct 50.0 % (35.5-45.6) H 09/14/17 12:01 MCV 85 fl (84-94) 09/14/17 12:01 MCH 28 pg (28-32) 09/14/17 12:01 MCHC 33 % (32-34) 09/14/17 12:01 RDW 15.2 % (13.2-15.2) 09/14/17 12:01 Plt Count 202 K/mm3 (140-440) D 09/14/17 12:01 Lymph % (Auto) 3.4 % (13.4-35.0) L 09/14/17 12:01 [place] % (Auto) 5.4 % (0.0-7.3) 09/14/17 12:01 Eos % (Auto) 0.0 % (0.0-4.3) 09/14/17 12:01 Baso % (Auto) 1.3 % (0.0-1.8) 09/14/17 12:01 Lymph # 0.5 K/mm3 (1.2-5.4) L 09/14/17 12:01 [place] # 0.7 K/mm3 (0.0-0.8) 09/14/17 12:01 Eos # 0.0 K/mm3 (0.0-0.4) 09/14/17 12:01 Baso # 0.2 K/mm3 (0.0-0.1) H 09/14/17 12:01 Seg Neutrophils % 89.9 % (40.0-70.0) H 09/14/17 12:01 Seg Neutrophils # 12.1 K/mm3 (1.8-7.7) H 09/14/17 12:01 PT 12.6 Sec. (12.2-14.9) 09/10/17 21:03 INR 0.90 (0.87-1.13) 09/10/17 21:03 APTT 67.9 Sec. (24.2-36.6) H* 09/10/17 21:03 D-Dimer 565.03 ng/mlDDU (0-234) H 09/10/17 21:03 POC ABG pH 7.397 (7.35-7.45) 09/12/17 11:08 POC ABG pCO2 37.9 (35-45) 09/12/17 11:08 POC ABG pO2 86 (80-105) 09/12/17 11:08 POC ABG HCO3 23.3 09/12/17 11:08 POC ABG Total CO2 24 09/12/17 11:08 POC ABG O2 Sat 97 09/12/17 11:08 POC ABG Base Excess -2 09/12/17 11:08 FiO2 50 % 09/12/17 11:08 Sodium 129 mmol/L (137-145) L 09/14/17 12:01 Potassium 5.0 mmol/L (3.6-5.0) 09/14/17 12:01 Chloride 87.3 mmol/L (98-107) L 09/14/17 12:01 Carbon Dioxide 22 mmol/L (22-30) 09/14/17 12:01 Anion Gap 25 mmol/L 09/14/17 12:01 BUN 32 mg/dL (9-20) H 09/14/17 12:01 Creatinine 0.8 mg/dL (0.8-1.5) 09/14/17 12:01 Estimated GFR > 60 ml/min 09/14/17 12:01 BUN/Creatinine Ratio 40 % 09/14/17 12:01 Glucose 355 mg/dL (75-100) H 09/14/17 12:01 POC Glucose 327 (70-105) H 09/14/17 11:36 Osmolality 293 Mosm/kg 09/13/17 14:37 Calcium 7.4 mg/dL (8.4-10.2) L 09/14/17 12:01 Phosphorus 2.60 mg/dL (2.5-4.5) 09/14/17 12:01 Total Bilirubin 0.40 mg/dL (0.1-1.2) 09/10/17 21:03 AST 110 units/L (5-40) H 09/10/17 21:03 ALT 49 units/L (7-56) 09/10/17 21:03 Alkaline Phosphatase 82 units/L (35-129) 09/10/17 21:03 Troponin T 0.023 ng/mL (0.00-0.029) 09/11/17 02:19 NT-Pro-B Natriuret Pep 1039 pg/mL (0-450) H 09/10/17 21:03 Total Protein 5.4 g/dL (6.3-8.2) L 09/10/17 21:03 Albumin 2.6 g/dL (3.9-5) L 09/10/17 21:03 Albumin/Globulin Ratio 0.9 % 09/10/17 21:03 Urine Osmolality 659 Mosm/kg 09/13/17 11:30 Urine Creatinine 47.9 mg/dL (0.1-20.0) H 09/13/17 11:30 Urine Sodium 10 mmol/L 09/13/17 11:30
[2017-09-14] MEDS: cefTRIAXone 1 GM in NACL 0.9% 20 ML IV SCH (17:06)
--- NOTE | 2017-09-14 18:51 | XRay Report ---
FINAL REPORT PROCEDURE: AP portable upright chest x-ray TECHNIQUE: Chest radiograph AP portable upright view. CPT 69548 HISTORY: pneumonia vs pulmonary edema COMPARISON: Prior chest x-ray 09/10/2017 FINDINGS: Heart is magnified although appears to be enlarged. This is stable. The pulmonary vasculature is not significantly distended. Diffuse patchy alveolar densities scattered in both lungs. This appears a little more extensive in the inferior aspect of the right upper lobe compared to the prior study. No effusions have developed. No acute bony abnormalities are seen IMPRESSION: Stable cardiomegaly. Diffuse alveolar densities present bilaterally suggesting pneumonia. This appears to have worsened slightly in the inferior aspect of the right upper lung field. No effusions have developed.
[2017-09-14] MEDS: LEVAQUIN 750MG/150ML 750 MG/150 ML BAG IV SCH (22:00)
[2017-09-14] MEDS ORDERED: LEVEMIR SUB-Q SCH (22:00)
[2017-09-15] MEDS: DUONEB *Not for PRN Use IH SCH ×4 (03:33→20:05)
[2017-09-15 05:05] LABS: BUN/Creatinine Ratio 37; Blood Urea Nitrogen 26 mg/dL (9-20); Calcium 7.4 mg/dL (8.4-10.2); Hemolysis Index 15
[2017-09-15] MEDS: LASIX PO SCH (11:46)
[2017-09-15] MEDS: LEVEMIR SUB-Q SCH ×2 (11:47→15:50)
[2017-09-15] MEDS: LOVENOX SUB-Q SCH (11:48)
[2017-09-15] MEDS: PHOS-NAK PO SCH ×2 (11:48→21:48)
[2017-09-15] MEDS: PROTONIX PO SCH (11:49)
[2017-09-15] MEDS: NOVOLOG SUB-Q SCH ×4 (12:12→21:51)
--- NOTE | 2017-09-15 13:45 | Progress Note ---
Assessment and Plan Acute hypoxemic respiratory failure Bilateral pneumonia Hyponatremia, improving Diabetes, poorly controlled Morbid obesity Erythrocytosis Thrombocytopenia Leukopenia Encephalopathy/delirium Systolic heart failure, EF 15% -Continue with NIPPV qhs and Prn -High flow oxygen -- continue to wean FiO2 for sats > 90% -continue with antibiotics for CAP, to complete a 7 day course -Heart failure measures, fluid restricition -VTE prophylaxis -Delirium management, probably metabolic/toxic Psych consult. If no psychiatric illness, with his hyponatremia and consfuion, get CT head. Discontinue steroids. -He does not have traditional risk factors, by history, for HIV but will recommend screening him. -Case management to help with contacting family Subjective Date of service: 09/15/17 Principal diagnosis: Acute hypoxic respiratory failure, bilateral infiltrates, encephalopathy, Interval history: Follow up for acute hypoxemic respiratory failure, bilateral pulmonary infiltrates, encephalopathy Seen and examined. Vitals, labs, medications, chart and imaging reviewed. Discussed with RN and RT Episodes of agitation as per RN. Throwing off the covers, pulled out his IV and stated that he is going home Objective - Exam Narrative Exam: General.: moderate respiratory distress on NIPPV, Tachypnic HEENT: Moist mucous membranes, extraocular muscles intact, no lymphadenopathy Neck: supple, no adenopathy, Cardiac: S1-S2 heard, RRR, no murmurs, gallops or rubs Lungs: decreased air entry bilaterally with crackles Abdomen: soft , non tender, non distended, bowel sounds positive Extremities: no edema clubbing or cyanosis Skin: no rash or lesions Neurologic: no gross focal deficits Psych: appropriate behavior, appropriate mood, corporative, judgment intact Vital Signs - 12hr 09/15/17 09/15/17 09/15/17 01:51 02:00 02:11 Temperature Pulse Rate 116 H 105 H 106 H Pulse Rate [ Anterior Bilateral Throughout] Pulse Rate [ Apical] Pulse Rate [ From Monitor] Pulse Rate [ Left Dorsalis Pedis] Pulse Rate [ Left Radial] Pulse Rate [ Right Dorsalis Pedis] Pulse Rate [ Right Radial] Respiratory Rate Respiratory Rate [Anterior Bilateral Throughout] Blood Pressure 128/87 119/81 119/81 O2 Sat by Pulse 85 86 88 Oximetry 09/15/17 09/15/17 09/15/17 02:20 02:31 02:41 Temperature Pulse Rate 119 H 122 H 115 H Pulse Rate [ Anterior Bilateral Throughout] Pulse Rate [ Apical] Pulse Rate [ From Monitor] Pulse Rate [ Left Dorsalis Pedis] Pulse Rate [ Left Radial] Pulse Rate [ Right Dorsalis Pedis] Pulse Rate [ Right Radial] Respiratory 9 L 13 Rate Respiratory Rate [Anterior Bilateral Throughout] Blood Pressure 119/81 119/81 119/81 O2 Sat by Pulse Oximetry 09/15/17 09/15/17 09/15/17 02:51 03:01 03:45 Temperature 97.7 F Pulse Rate 115 H 115 H Pulse Rate [ Anterior Bilateral Throughout] Pulse Rate [ Apical] Pulse Rate [ From Monitor] Pulse Rate [ Left Dorsalis Pedis] Pulse Rate [ Left Radial] Pulse Rate [ Right Dorsalis Pedis] Pulse Rate [ Right Radial] Respiratory 13 18 Rate Respiratory Rate [Anterior Bilateral Throughout] Blood Pressure 119/81 119/81 O2 Sat by Pulse Oximetry 09/15/17 09/15/17 09/15/17 04:00 05:09 06:35 Temperature Pulse Rate 110 H 107 H Pulse Rate [ Anterior Bilateral Throughout] Pulse Rate [ 106 H Apical] Pulse Rate [ 106 H From Monitor] Pulse Rate [ 106 H Left Dorsalis Pedis] Pulse Rate [ 106 H Left Radial] Pulse Rate [ 106 H Right Dorsalis Pedis] Pulse Rate [ 106 H Right Radial] Respiratory 22 Rate Respiratory Rate [Anterior Bilateral Throughout] Blood Pressure 119/81 O2 Sat by Pulse 92 Oximetry 09/15/17 09/15/17 09/15/17 06:41 06:51 07:00 Temperature Pulse Rate 124 H 114 H 112 H Pulse Rate [ Anterior Bilateral Throughout] Pulse Rate [ Apical] Pulse Rate [ From Monitor] Pulse Rate [ Left Dorsalis Pedis] Pulse Rate [ Left Radial] Pulse Rate [ Right Dorsalis Pedis] Pulse Rate [ Right Radial] Respiratory 21 12 15 Rate Respiratory Rate [Anterior Bilateral Throughout] Blood Pressure 119/81 153/106 137/96 O2 Sat by Pulse 81 L 88 Oximetry 09/15/17 09/15/17 09/15/17 07:11 07:21 07:31 Temperature Pulse Rate 117 H 126 H 116 H Pulse Rate [ Anterior Bilateral Throughout] Pulse Rate [ Apical] Pulse Rate [ From Monitor] Pulse Rate [ Left Dorsalis Pedis] Pulse Rate [ Left Radial] Pulse Rate [ Right Dorsalis Pedis] Pulse Rate [ Right Radial] Respiratory 13 13 13 Rate Respiratory Rate [Anterior Bilateral Throughout] Blood Pressure 153/106 153/106 153/106 O2 Sat by Pulse 83 L 82 L 81 L Oximetry 09/15/17 09/15/17 09/15/17 07:41 07:51 07:57 Temperature Pulse Rate 112 H 107 H Pulse Rate [ Anterior Bilateral Throughout] Pulse Rate [ Apical] Pulse Rate [ From Monitor] Pulse Rate [ Left Dorsalis Pedis] Pulse Rate [ Left Radial] Pulse Rate [ Right Dorsalis Pedis] Pulse Rate [ Right Radial] Respiratory 34 H 24 Rate Respiratory Rate [Anterior Bilateral Throughout] Blood Pressure 137/96 137/96 O2 Sat by Pulse 97 Oximetry 09/15/17 09/15/17 09/15/17 08:00 08:11 08:21 Temperature 98.0 F Pulse Rate 116 H 123 H 119 H Pulse Rate [ Anterior Bilateral Throughout] Pulse Rate [ Apical] Pulse Rate [ From Monitor] Pulse Rate [ Left Dorsalis Pedis] Pulse Rate [ Left Radial] Pulse Rate [ Right Dorsalis Pedis] Pulse Rate [ Right Radial] Respiratory 17 18 22 Rate Respiratory Rate [Anterior Bilateral Throughout] Blood Pressure 152/119 152/119 152/119 O2 Sat by Pulse Oximetry 09/15/17 09/15/17 09/15/17 08:31 08:41 08:51 Temperature Pulse Rate 115 H 112 H 115 H Pulse Rate [ Anterior Bilateral Throughout] Pulse Rate [ Apical] Pulse Rate [ From Monitor] Pulse Rate [ Left Dorsalis Pedis] Pulse Rate [ Left Radial] Pulse Rate [ Right Dorsalis Pedis] Pulse Rate [ Right Radial] Respiratory 30 H 29 H 14 Rate Respiratory Rate [Anterior Bilateral Throughout] Blood Pressure 152/119 152/119 152/119 O2 Sat by Pulse 95 Oximetry 09/15/17 09/15/17 09/15/17 09:00 09:11 09:20 Temperature Pulse Rate 107 H 113 H 130 H Pulse Rate [ Anterior Bilateral Throughout] Pulse Rate [ Apical] Pulse Rate [ From Monitor] Pulse Rate [ Left Dorsalis Pedis] Pulse Rate [ Left Radial] Pulse Rate [ Right Dorsalis Pedis] Pulse Rate [ Right Radial] Respiratory 19 12 18 Rate Respiratory Rate [Anterior Bilateral Throughout] Blood Pressure 114/72 114/72 114/72 O2 Sat by Pulse 95 95 95 Oximetry 09/15/17 09/15/17 09/15/17 09:30 09:41 09:50 Temperature Pulse Rate 134 H 133 H Pulse Rate [ Anterior Bilateral Throughout] Pulse Rate [ Apical] Pulse Rate [ From Monitor] Pulse Rate [ Left Dorsalis Pedis] Pulse Rate [ Left Radial] Pulse Rate [ Right Dorsalis Pedis] Pulse Rate [ Right Radial] Respiratory 17 21 Rate Respiratory Rate [Anterior Bilateral Throughout] Blood Pressure 114/72 114/72 114/72 O2 Sat by Pulse Oximetry 09/15/17 09/15/17 09/15/17 10:06 10:11 10:21 Temperature Pulse Rate 119 H 115 H Pulse Rate [ Anterior Bilateral Throughout] Pulse Rate [ Apical] Pulse Rate [ From Monitor] Pulse Rate [ Left Dorsalis Pedis] Pulse Rate [ Left Radial] Pulse Rate [ Right Dorsalis Pedis] Pulse Rate [ Right Radial] Respiratory 14 14 Rate Respiratory Rate [Anterior Bilateral Throughout] Blood Pressure 114/72 114/72 114/72 O2 Sat by Pulse 100 95 94 Oximetry 09/15/17 09/15/17 09/15/17 10:31 10:41 10:51 Temperature Pulse Rate 104 H 105 H 105 H Pulse Rate [ Anterior Bilateral Throughout] Pulse Rate [ Apical] Pulse Rate [ From Monitor] Pulse Rate [ Left Dorsalis Pedis] Pulse Rate [ Left Radial] Pulse Rate [ Right Dorsalis Pedis] Pulse Rate [ Right Radial] Respiratory 27 H 26 H 22 Rate Respiratory Rate [Anterior Bilateral Throughout] Blood Pressure 114/72 114/72 114/72 O2 Sat by Pulse 97 98 Oximetry 09/15/17 09/15/17 09/15/17 11:00 11:11 11:21 Temperature Pulse Rate 101 H 109 H 108 H Pulse Rate [ Anterior Bilateral Throughout] Pulse Rate [ Apical] Pulse Rate [ From Monitor] Pulse Rate [ Left Dorsalis Pedis] Pulse Rate [ Left Radial] Pulse Rate [ Right Dorsalis Pedis] Pulse Rate [ Right Radial] Respiratory 24 24 13 Rate Respiratory Rate [Anterior Bilateral Throughout] Blood Pressure 110/77 110/77 110/77 O2 Sat by Pulse 98 97 Oximetry 09/15/17 09/15/17 09/15/17 11:31 11:41 11:51 Temperature Pulse Rate 99 H 111 H 124 H Pulse Rate [ Anterior Bilateral Throughout] Pulse Rate [ Apical] Pulse Rate [ From Monitor] Pulse Rate [ Left Dorsalis Pedis] Pulse Rate [ Left Radial] Pulse Rate [ Right Dorsalis Pedis] Pulse Rate [ Right Radial] Respiratory 27 H 14 17 Rate Respiratory Rate [Anterior Bilateral Throughout] Blood Pressure 110/77 110/77 110/77 O2 Sat by Pulse 94 98 99 Oximetry 09/15/17 09/15/17 09/15/17 12:00 12:01 13:35 Temperature 97.9 F Pulse Rate 112 H Pulse Rate [ 112 H Anterior Bilateral Throughout] Pulse Rate [ Apical] Pulse Rate [ From Monitor] Pulse Rate [ Left Dorsalis Pedis] Pulse Rate [ Left Radial] Pulse Rate [ Right Dorsalis Pedis] Pulse Rate [ Right Radial] Respiratory 25 H Rate Respiratory 20 Rate [Anterior Bilateral Throughout] Blood Pressure 110/77 O2 Sat by Pulse 96 Oximetry 09/15/17 13:37 Temperature Pulse Rate Pulse Rate [ Anterior Bilateral Throughout] Pulse Rate [ Apical] Pulse Rate [ From Monitor] Pulse Rate [ Left Dorsalis Pedis] Pulse Rate [ Left Radial] Pulse Rate [ Right Dorsalis Pedis] Pulse Rate [ Right Radial] Respiratory Rate Respiratory Rate [Anterior Bilateral Throughout] Blood Pressure O2 Sat by Pulse 97 Oximetry Constitutional: no acute distress, lethargic, asleep Eyes: non-icteric ENT: oropharynx dry Neck: supple, no JVD Effort: mildly labored Ascultation: Bilateral: diminished breath sounds, rhonchi Percussion: Bilateral: not dull Cardiovascular: regular rate and rhythm Gastrointestinal: normoactive bowel sounds, soft, non-tender Integumentary: normal, rash Extremities: no cyanosis, no edema Neurologic: unable to assess Psychiatric: other (Unable to assess due mental status.) CBC and BMP: 09/16/17 07:39 09/16/17 04:00 ABG, PT/INR, D-dimer: ABG POC ABG pH 7.397 (7.35-7.45) 09/12/17 11:08 POC ABG pCO2 37.9 (35-45) 09/12/17 11:08 POC ABG pO2 86 (80-105) 09/12/17 11:08 POC ABG HCO3 23.3 09/12/17 11:08 POC ABG Total CO2 24 09/12/17 11:08 POC ABG O2 Sat 97 09/12/17 11:08 PT/INR, D-dimer PT 12.6 Sec. (12.2-14.9) 09/10/17 21:03 INR 0.90 (0.87-1.13) 09/10/17 21:03 D-Dimer 565.03 ng/mlDDU (0-234) H 09/10/17 21:03 Abnormal lab findings: Abnormal Labs 09/10/17 09/10/17 09/10/17 21:03 21:03 21:03 WBC RBC 6.16 H Hgb 17.9 H Hct 52.9 H Plt Count 126 L Lymph % (Auto) 8.5 L [place] % (Auto) Lymph # 0.4 L Baso # Seg Neutrophils % 85.2 H Seg Neutrophils # APTT 67.9 H* D-Dimer 565.03 H POC ABG pH POC ABG pCO2 POC ABG pO2 Sodium 124 L Chloride 82.7 L Carbon Dioxide 21 L BUN 25 H Creatinine Glucose 320 H POC Glucose Lactic Acid Calcium Phosphorus AST 110 H C-Reactive Protein NT-Pro-B Natriuret Pep 1039 H Total Protein 5.4 L Albumin 2.6 L Urine Creatinine 09/10/17 09/10/17 09/11/17 21:27 23:24 12:57 WBC RBC Hgb Hct Plt Count Lymph % (Auto) [place] % (Auto) Lymph # Baso # Seg Neutrophils % Seg Neutrophils # APTT D-Dimer POC ABG pH POC ABG pCO2 32.1 L POC ABG pO2 Sodium Chloride Carbon Dioxide BUN Creatinine Glucose POC Glucose 254 H 219 H Lactic Acid Calcium Phosphorus AST C-Reactive Protein NT-Pro-B Natriuret Pep Total Protein Albumin Urine Creatinine 09/11/17 09/11/17 09/11/17 16:18 20:51 21:47 WBC RBC Hgb Hct Plt Count Lymph % (Auto) [place] % (Auto) Lymph # Baso # Seg Neutrophils % Seg Neutrophils # APTT D-Dimer POC ABG pH 7.455 H POC ABG pCO2 33.3 L POC ABG pO2 68 L Sodium Chloride Carbon Dioxide BUN Creatinine Glucose POC Glucose 300 H 253 H Lactic Acid Calcium Phosphorus AST C-Reactive Protein NT-Pro-B Natriuret Pep Total Protein Albumin Urine Creatinine 09/12/17 09/12/17 09/12/17 03:31 03:31 08:14 WBC 2.8 L RBC 5.91 H Hgb 17.1 H Hct 49.8 H Plt Count 94 L Lymph % (Auto) [place] % (Auto) 9.6 H Lymph # 0.5 L Baso # Seg Neutrophils % 71.8 H Seg Neutrophils # APTT D-Dimer POC ABG pH POC ABG pCO2 POC ABG pO2 Sodium 122 L Chloride 84.4 L Carbon Dioxide BUN 28 H Creatinine Glucose 270 H POC Glucose 207 H Lactic Acid Calcium 7.5 L Phosphorus AST C-Reactive Protein NT-Pro-B Natriuret Pep Total Protein Albumin Urine Creatinine 09/12/17 09/12/17 09/12/17 11:36 17:41 21:52 WBC RBC Hgb Hct Plt Count Lymph % (Auto) [place] % (Auto) Lymph # Baso # Seg Neutrophils % Seg Neutrophils # APTT D-Dimer POC ABG pH POC ABG pCO2 POC ABG pO2 Sodium Chloride Carbon Dioxide BUN Creatinine Glucose POC Glucose 264 H 295 H 254 H Lactic Acid Calcium Phosphorus AST C-Reactive Protein NT-Pro-B Natriuret Pep Total Protein Albumin Urine Creatinine 09/13/17 09/13/17 09/13/17 03:24 11:30 12:15 WBC RBC Hgb Hct Plt Count Lymph % (Auto) [place] % (Auto) Lymph # Baso # Seg Neutrophils % Seg Neutrophils # APTT D-Dimer POC ABG pH POC ABG pCO2 POC ABG pO2 Sodium 127 L Chloride 86.1 L Carbon Dioxide BUN 35 H Creatinine Glucose 322 H POC Glucose 274 H Lactic Acid Calcium 7.3 L Phosphorus AST C-Reactive Protein NT-Pro-B Natriuret Pep Total Protein Albumin Urine Creatinine 47.9 H 09/13/17 09/13/17 09/14/17 16:45 21:36 03:05 WBC RBC Hgb Hct Plt Count Lymph % (Auto) [place] % (Auto) Lymph # Baso # Seg Neutrophils % Seg Neutrophils # APTT D-Dimer POC ABG pH POC ABG pCO2 POC ABG pO2 Sodium 129 L Chloride 89.7 L Carbon Dioxide BUN 31 H Creatinine Glucose 281 H POC Glucose 291 H 294 H Lactic Acid Calcium 7.1 L Phosphorus AST C-Reactive Protein NT-Pro-B Natriuret Pep Total Protein Albumin Urine Creatinine 09/14/17 09/14/17 09/14/17 07:40 11:36 12:01 WBC 13.5 H RBC 5.86 H Hgb 16.6 H Hct 50.0 H Plt Count Lymph % (Auto) 3.4 L [place] % (Auto) Lymph # 0.5 L Baso # 0.2 H Seg Neutrophils % 89.9 H Seg Neutrophils # 12.1 H APTT D-Dimer POC ABG pH POC ABG pCO2 POC ABG pO2 Sodium Chloride Carbon Dioxide BUN Creatinine Glucose POC Glucose 257 H 327 H Lactic Acid Calcium Phosphorus AST C-Reactive Protein NT-Pro-B Natriuret Pep Total Protein Albumin Urine Creatinine 09/14/17 09/14/17 09/14/17 12:01 16:21 20:50 WBC RBC Hgb Hct Plt Count Lymph % (Auto) [place] % (Auto) Lymph # Baso # Seg Neutrophils % Seg Neutrophils # APTT D-Dimer POC ABG pH POC ABG pCO2 POC ABG pO2 Sodium 129 L Chloride 87.3 L Carbon Dioxide BUN 32 H Creatinine Glucose 355 H POC Glucose 294 H Lactic Acid 3.50 H* Calcium 7.4 L Phosphorus AST C-Reactive Protein NT-Pro-B Natriuret Pep Total Protein Albumin Urine Creatinine 09/14/17 09/14/17 09/15/17 20:50 21:53 04:30 WBC RBC Hgb Hct Plt Count Lymph % (Auto) [place] % (Auto) Lymph # Baso # Seg Neutrophils % Seg Neutrophils # APTT D-Dimer POC ABG pH POC ABG pCO2 POC ABG pO2 Sodium 126 L Chloride 87.8 L Carbon Dioxide BUN 26 H Creatinine 0.7 L Glucose 276 H POC Glucose 270 H Lactic Acid Calcium 7.4 L Phosphorus 1.70 L D AST C-Reactive Protein 1.90 H NT-Pro-B Natriuret Pep Total Protein Albumin Urine Creatinine 09/15/17 07:15 WBC RBC Hgb Hct Plt Count Lymph % (Auto) [place] % (Auto) Lymph # Baso # Seg Neutrophils % Seg Neutrophils # APTT D-Dimer POC ABG pH POC ABG pCO2 POC ABG pO2 Sodium Chloride Carbon Dioxide BUN Creatinine Glucose POC Glucose 221 H Lactic Acid Calcium Phosphorus AST C-Reactive Protein NT-Pro-B Natriuret Pep Total Protein Albumin Urine Creatinine Chest x-ray: image reviewed Allied health notes reviewed: RT ED Critical Care Note - Critical Care Note Total Time (mins): 35 Critical care time in (mins) excluding proc time.: 35 Critical care attestation.: If time is entered above; I have spent that time in minutes in the direct care of this critically ill patient, excluding procedure time.
--- NOTE | 2017-09-15 14:53 | Progress Note ---
Assessment and Plan Assessment and plan: This is a 42-year-old man with a history of hypertension, diabetes, CHF, emergency room with complaints of cough, nonproductive, shortness of breath and decreased energy with generalized weakness since Thursday. 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 The aggregate critical care time was [44] minutes. This time is in addition to time spent performing reported procedures but includes the following: [] Data Review and interpretation [] Patient assessment and monitoring of vital signs [] Documentation [] Medication orders and management History Interval history: patient states that he feels thirsty all the time RN states that he keeps asking for water Review of systems Constitutional: No fevers, no joint pains, admits fatigue CVS: No chest pain, no orthopnea, no dyspnea on exertion, no pedal edema GI: No abdominal pain, no diarrhea, no vomiting, no constipation Respiratory: c/o of SOB, but claims it is improving Hospitalist Physical - Physical exam Narrative exam: General.: moderate respiratory distress HEENT: Moist mucous membranes, extraocular muscles intact, no lymphadenopathy Neck: supple Cardiac: S1-S2 heard Lungs: decreased air entry Abdomen: soft , nontender, nondistended, bowel sounds positive Extremities: no edema clubbing or cyanosis Skin: no rash or lesions Neurologic: no gross focal deficits Psych: appropriate behavior, appropriate mood, corporative, judgment intact - Constitutional Vitals: Temp Pulse Resp BP Pulse Ox 97.9 F 112 H 18 110/77 97 09/15/17 12:00 09/15/17 13:44 09/15/17 13:44 09/15/17 12:01 09/15/17 13:37 Results - Labs CBC & Chem 7: 09/16/17 07:39 09/16/17 04:00 Labs: Laboratory Last Values WBC 13.5 K/mm3 (4.5-11.0) H 09/14/17 12:01 RBC 5.86 M/mm3 (3.65-5.03) H 09/14/17 12:01 Hgb 16.6 gm/dl (11.8-15.2) H 09/14/17 12:01 Hct 50.0 % (35.5-45.6) H 09/14/17 12:01 MCV 85 fl (84-94) 09/14/17 12:01 MCH 28 pg (28-32) 09/14/17 12:01 MCHC 33 % (32-34) 09/14/17 12:01 RDW 15.2 % (13.2-15.2) 09/14/17 12:01 Plt Count 202 K/mm3 (140-440) D 09/14/17 12:01 Lymph % (Auto) 3.4 % (13.4-35.0) L 09/14/17 12:01 Stoddard % (Auto) 5.4 % (0.0-7.3) 09/14/17 12:01 Eos % (Auto) 0.0 % (0.0-4.3) 09/14/17 12:01 Baso % (Auto) 1.3 % (0.0-1.8) 09/14/17 12:01 Lymph # 0.5 K/mm3 (1.2-5.4) L 09/14/17 12:01 Stoddard # 0.7 K/mm3 (0.0-0.8) 09/14/17 12:01 Eos # 0.0 K/mm3 (0.0-0.4) 09/14/17 12:01 Baso # 0.2 K/mm3 (0.0-0.1) H 09/14/17 12:01 Seg Neutrophils % 89.9 % (40.0-70.0) H 09/14/17 12:01 Seg Neutrophils # 12.1 K/mm3 (1.8-7.7) H 09/14/17 12:01 PT 12.6 Sec. (12.2-14.9) 09/10/17 21:03 INR 0.90 (0.87-1.13) 09/10/17 21:03 APTT 67.9 Sec. (24.2-36.6) H* 09/10/17 21:03 D-Dimer 565.03 ng/mlDDU (0-234) H 09/10/17 21:03 POC ABG pH 7.397 (7.35-7.45) 09/12/17 11:08 POC ABG pCO2 37.9 (35-45) 09/12/17 11:08 POC ABG pO2 86 (80-105) 09/12/17 11:08 POC ABG HCO3 23.3 09/12/17 11:08 POC ABG Total CO2 24 09/12/17 11:08 POC ABG O2 Sat 97 09/12/17 11:08 POC ABG Base Excess -2 09/12/17 11:08 FiO2 50 % 09/12/17 11:08 Sodium 126 mmol/L (137-145) L 09/15/17 04:30 Potassium 4.8 mmol/L (3.6-5.0) 09/15/17 04:30 Chloride 87.8 mmol/L (98-107) L 09/15/17 04:30 Carbon Dioxide 25 mmol/L (22-30) 09/15/17 04:30 Anion Gap 18 mmol/L 09/15/17 04:30 BUN 26 mg/dL (9-20) H 09/15/17 04:30 Creatinine 0.7 mg/dL (0.8-1.5) L 09/15/17 04:30 Estimated GFR > 60 ml/min 09/15/17 04:30 BUN/Creatinine Ratio 37 % 09/15/17 04:30 Glucose 276 mg/dL (75-100) H 09/15/17 04:30 POC Glucose 221 (70-105) H 09/15/17 07:15 Osmolality 293 Mosm/kg 09/13/17 14:37 Lactic Acid 3.50 mmol/L (0.7-2.0) H* 09/14/17 20:50 Calcium 7.4 mg/dL (8.4-10.2) L 09/15/17 04:30 Phosphorus 1.70 mg/dL (2.5-4.5) L D 09/15/17 04:30 Total Bilirubin 0.40 mg/dL (0.1-1.2) 09/10/17 21:03 AST 110 units/L (5-40) H 09/10/17 21:03 ALT 49 units/L (7-56) 09/10/17 21:03 Alkaline Phosphatase 82 units/L (35-129) 09/10/17 21:03 Troponin T 0.023 ng/mL (0.00-0.029) 09/11/17 02:19 C-Reactive Protein 1.90 mg/dL (0.00-1.30) H 09/14/17 20:50 NT-Pro-B Natriuret Pep 1039 pg/mL (0-450) H 09/10/17 21:03 Total Protein 5.4 g/dL (6.3-8.2) L 09/10/17 21:03 Albumin 2.6 g/dL (3.9-5) L 09/10/17 21:03 Albumin/Globulin Ratio 0.9 % 09/10/17 21:03 Urine Osmolality 659 Mosm/kg 09/13/17 11:30 Urine Creatinine 47.9 mg/dL (0.1-20.0) H 09/13/17 11:30 Urine Sodium 10 mmol/L 09/13/17 11:30
[2017-09-15] MEDS ORDERED: HALDOL IV PRN (15:06)
[2017-09-15] MEDS ORDERED: HALDOL ONE (15:11)
[2017-09-15] MEDS: cefTRIAXone 1 GM in NACL 0.9% 20 ML IV SCH (15:50)
--- NOTE | 2017-09-15 15:51 | Progress Note ---
Assessment and Plan - Patient Problems (1) Bilateral pneumonia Current Visit: Yes Status: Acute Qualifiers: Pneumonia type: due to unspecified organism Lung location: unspecified part of lung Qualified Code(s): J18.9 - Pneumonia, unspecified organism Plan to address problem: On Rocephin As per primary team (2) Hyponatremia Current Visit: Yes Status: Acute Plan to address problem: Labs reviewed Possibly secondary to SIADH from pneumonia Exact etiology unclear, serum osmolality of 293, hypertonic hyponatremia. S/p contrast from CTA chest on 09/10/17 Serum sodium level was 126 today, yesterday's serum sodium level was 129 Corrected sodium level in setting of hyperglycemia approximately 129 Urine studies reviewed showed urine sodium of 10, urine osmolality of 659 BNP was 1039 on admission On Lasix 20 mg orally once a day, monitor volume status/UOP closely, and adjust diuretic regimen as needed Echocardiogram EF 10-15% Repeat serum sodium level at 1800 Repeat urine lytes, osmolality studies Strict intake and output Lyles Catheter: No Kcthnj=536 ml Output= 4250 ml (Net= -3900 ml) Renal plan discussed with Dr Flores Continue supportive therapy (3) Diabetes mellitus type 2, insulin dependent Current Visit: Yes Status: Acute Plan to address problem: On insulin As per primary team (4) Congestive heart failure Current Visit: Yes Status: Acute Plan to address problem: Cardiology consulted Echo EF 10-15% On Lasix 20 mg orally once a day Follow up cardiology recs Subjective Date of service: 09/15/17 Principal diagnosis: Acute hypoxic respiratory failure, bilateral infiltrates, encephalopathy, Interval history: Patient seen in the ICU, no specific complaints voiced, denies shortness of breath. No family at bedside at time of my examination Objective - Vital Signs Vital signs: Vital Signs - 12hr 09/15/17 09/15/17 09/15/17 04:00 05:09 06:35 Temperature Pulse Rate 110 H 107 H Pulse Rate [ Anterior Bilateral Throughout] Pulse Rate [ 106 H Apical] Pulse Rate [ 106 H From Monitor] Pulse Rate [ 106 H Left Dorsalis Pedis] Pulse Rate [ 106 H Left Radial] Pulse Rate [ 106 H Right Dorsalis Pedis] Pulse Rate [ 106 H Right Radial] Respiratory 22 Rate Respiratory Rate [Anterior Bilateral Throughout] Blood Pressure 119/81 O2 Sat by Pulse 92 Oximetry 09/15/17 09/15/17 09/15/17 06:41 06:51 07:00 Temperature Pulse Rate 124 H 114 H 112 H Pulse Rate [ Anterior Bilateral Throughout] Pulse Rate [ Apical] Pulse Rate [ From Monitor] Pulse Rate [ Left Dorsalis Pedis] Pulse Rate [ Left Radial] Pulse Rate [ Right Dorsalis Pedis] Pulse Rate [ Right Radial] Respiratory 21 12 15 Rate Respiratory Rate [Anterior Bilateral Throughout] Blood Pressure 119/81 153/106 137/96 O2 Sat by Pulse 81 L 88 Oximetry 09/15/17 09/15/17 09/15/17 07:11 07:21 07:31 Temperature Pulse Rate 117 H 126 H 116 H Pulse Rate [ Anterior Bilateral Throughout] Pulse Rate [ Apical] Pulse Rate [ From Monitor] Pulse Rate [ Left Dorsalis Pedis] Pulse Rate [ Left Radial] Pulse Rate [ Right Dorsalis Pedis] Pulse Rate [ Right Radial] Respiratory 13 13 13 Rate Respiratory Rate [Anterior Bilateral Throughout] Blood Pressure 153/106 153/106 153/106 O2 Sat by Pulse 83 L 82 L 81 L Oximetry 09/15/17 09/15/17 09/15/17 07:41 07:51 07:57 Temperature Pulse Rate 112 H 107 H Pulse Rate [ Anterior Bilateral Throughout] Pulse Rate [ Apical] Pulse Rate [ From Monitor] Pulse Rate [ Left Dorsalis Pedis] Pulse Rate [ Left Radial] Pulse Rate [ Right Dorsalis Pedis] Pulse Rate [ Right Radial] Respiratory 34 H 24 Rate Respiratory Rate [Anterior Bilateral Throughout] Blood Pressure 137/96 137/96 O2 Sat by Pulse 97 Oximetry 09/15/17 09/15/17 09/15/17 08:00 08:11 08:21 Temperature 98.0 F Pulse Rate 116 H 123 H 119 H Pulse Rate [ Anterior Bilateral Throughout] Pulse Rate [ Apical] Pulse Rate [ From Monitor] Pulse Rate [ Left Dorsalis Pedis] Pulse Rate [ Left Radial] Pulse Rate [ Right Dorsalis Pedis] Pulse Rate [ Right Radial] Respiratory 17 18 22 Rate Respiratory Rate [Anterior Bilateral Throughout] Blood Pressure 152/119 152/119 152/119 O2 Sat by Pulse Oximetry 09/15/17 09/15/17 09/15/17 08:31 08:41 08:51 Temperature Pulse Rate 115 H 112 H 115 H Pulse Rate [ Anterior Bilateral Throughout] Pulse Rate [ Apical] Pulse Rate [ From Monitor] Pulse Rate [ Left Dorsalis Pedis] Pulse Rate [ Left Radial] Pulse Rate [ Right Dorsalis Pedis] Pulse Rate [ Right Radial] Respiratory 30 H 29 H 14 Rate Respiratory Rate [Anterior Bilateral Throughout] Blood Pressure 152/119 152/119 152/119 O2 Sat by Pulse 95 Oximetry 09/15/17 09/15/17 09/15/17 09:00 09:11 09:20 Temperature Pulse Rate 107 H 113 H 130 H Pulse Rate [ Anterior Bilateral Throughout] Pulse Rate [ Apical] Pulse Rate [ From Monitor] Pulse Rate [ Left Dorsalis Pedis] Pulse Rate [ Left Radial] Pulse Rate [ Right Dorsalis Pedis] Pulse Rate [ Right Radial] Respiratory 19 12 18 Rate Respiratory Rate [Anterior Bilateral Throughout] Blood Pressure 114/72 114/72 114/72 O2 Sat by Pulse 95 95 95 Oximetry 09/15/17 09/15/17 09/15/17 09:30 09:41 09:50 Temperature Pulse Rate 134 H 133 H Pulse Rate [ Anterior Bilateral Throughout] Pulse Rate [ Apical] Pulse Rate [ From Monitor] Pulse Rate [ Left Dorsalis Pedis] Pulse Rate [ Left Radial] Pulse Rate [ Right Dorsalis Pedis] Pulse Rate [ Right Radial] Respiratory 17 21 Rate Respiratory Rate [Anterior Bilateral Throughout] Blood Pressure 114/72 114/72 114/72 O2 Sat by Pulse Oximetry 09/15/17 09/15/17 09/15/17 10:06 10:11 10:21 Temperature Pulse Rate 119 H 115 H Pulse Rate [ Anterior Bilateral Throughout] Pulse Rate [ Apical] Pulse Rate [ From Monitor] Pulse Rate [ Left Dorsalis Pedis] Pulse Rate [ Left Radial] Pulse Rate [ Right Dorsalis Pedis] Pulse Rate [ Right Radial] Respiratory 14 14 Rate Respiratory Rate [Anterior Bilateral Throughout] Blood Pressure 114/72 114/72 114/72 O2 Sat by Pulse 100 95 94 Oximetry 09/15/17 09/15/17 09/15/17 10:31 10:41 10:51 Temperature Pulse Rate 104 H 105 H 105 H Pulse Rate [ Anterior Bilateral Throughout] Pulse Rate [ Apical] Pulse Rate [ From Monitor] Pulse Rate [ Left Dorsalis Pedis] Pulse Rate [ Left Radial] Pulse Rate [ Right Dorsalis Pedis] Pulse Rate [ Right Radial] Respiratory 27 H 26 H 22 Rate Respiratory Rate [Anterior Bilateral Throughout] Blood Pressure 114/72 114/72 114/72 O2 Sat by Pulse 97 98 Oximetry 09/15/17 09/15/1709/15/18 11:00 11:11 11:21 Temperature Pulse Rate 101 H 109 H 108 H Pulse Rate [ Anterior Bilateral Throughout] Pulse Rate [ Apical] Pulse Rate [ From Monitor] Pulse Rate [ Left Dorsalis Pedis] Pulse Rate [ Left Radial] Pulse Rate [ Right Dorsalis Pedis] Pulse Rate [ Right Radial] Respiratory 24 24 13 Rate Respiratory Rate [Anterior Bilateral Throughout] Blood Pressure 110/77 110/77 110/77 O2 Sat by Pulse 98 97 Oximetry 09/15/17 09/15/17 09/15/17 11:31 11:41 11:51 Temperature Pulse Rate 99 H 111 H 124 H Pulse Rate [ Anterior Bilateral Throughout] Pulse Rate [ Apical] Pulse Rate [ From Monitor] Pulse Rate [ Left Dorsalis Pedis] Pulse Rate [ Left Radial] Pulse Rate [ Right Dorsalis Pedis] Pulse Rate [ Right Radial] Respiratory 27 H 14 17 Rate Respiratory Rate [Anterior Bilateral Throughout] Blood Pressure 110/77 110/77 110/77 O2 Sat by Pulse 94 98 99 Oximetry 09/15/17 09/15/17 09/15/17 12:00 12:01 12:11 Temperature 97.9 F Pulse Rate 112 H 111 H Pulse Rate [ Anterior Bilateral Throughout] Pulse Rate [ Apical] Pulse Rate [ From Monitor] Pulse Rate [ Left Dorsalis Pedis] Pulse Rate [ Left Radial] Pulse Rate [ Right Dorsalis Pedis] Pulse Rate [ Right Radial] Respiratory 25 H 15 Rate Respiratory Rate [Anterior Bilateral Throughout] Blood Pressure 110/77 130/94 O2 Sat by Pulse 96 96 Oximetry 09/15/17 09/15/17 09/15/17 12:21 12:31 12:41 Temperature Pulse Rate 111 H 111 H 108 H Pulse Rate [ Anterior Bilateral Throughout] Pulse Rate [ Apical] Pulse Rate [ From Monitor] Pulse Rate [ Left Dorsalis Pedis] Pulse Rate [ Left Radial] Pulse Rate [ Right Dorsalis Pedis] Pulse Rate [ Right Radial] Respiratory 30 H 30 H 26 H Rate Respiratory Rate [Anterior Bilateral Throughout] Blood Pressure 130/94 130/94 130/94 O2 Sat by Pulse 94 95 95 Oximetry 09/15/17 09/15/17 09/15/17 12:51 13:00 13:11 Temperature Pulse Rate 108 H 110 H 101 H Pulse Rate [ Anterior Bilateral Throughout] Pulse Rate [ Apical] Pulse Rate [ From Monitor] Pulse Rate [ Left Dorsalis Pedis] Pulse Rate [ Left Radial] Pulse Rate [ Right Dorsalis Pedis] Pulse Rate [ Right Radial] Respiratory 27 H 28 H 24 Rate Respiratory Rate [Anterior Bilateral Throughout] Blood Pressure 130/94 122/81 122/81 O2 Sat by Pulse 96 95 97 Oximetry 09/15/17 09/15/17 09/15/17 13:21 13:31 13:35 Temperature Pulse Rate 99 H 102 H Pulse Rate [ 112 H Anterior Bilateral Throughout] Pulse Rate [ Apical] Pulse Rate [ From Monitor] Pulse Rate [ Left Dorsalis Pedis] Pulse Rate [ Left Radial] Pulse Rate [ Right Dorsalis Pedis] Pulse Rate [ Right Radial] Respiratory 26 H 10 L Rate Respiratory 20 Rate [Anterior Bilateral Throughout] Blood Pressure 122/81 122/81 O2 Sat by Pulse 98 98 Oximetry 09/15/17 09/15/17 09/15/17 13:37 13:41 13:44 Temperature Pulse Rate 113 H Pulse Rate [ 112 H Anterior Bilateral Throughout] Pulse Rate [ Apical] Pulse Rate [ From Monitor] Pulse Rate [ Left Dorsalis Pedis] Pulse Rate [ Left Radial] Pulse Rate [ Right Dorsalis Pedis] Pulse Rate [ Right Radial] Respiratory 16 Rate Respiratory 18 Rate [Anterior Bilateral Throughout] Blood Pressure 122/81 O2 Sat by Pulse 97 97 Oximetry 09/15/17 09/15/17 09/15/17 13:51 14:00 14:11 Temperature Pulse Rate 118 H 109 H 109 H Pulse Rate [ Anterior Bilateral Throughout] Pulse Rate [ Apical] Pulse Rate [ From Monitor] Pulse Rate [ Left Dorsalis Pedis] Pulse Rate [ Left Radial] Pulse Rate [ Right Dorsalis Pedis] Pulse Rate [ Right Radial] Respiratory 17 22 25 H Rate Respiratory Rate [Anterior Bilateral Throughout] Blood Pressure 122/81 142/99 142/99 O2 Sat by Pulse 94 94 93 Oximetry 09/15/17 09/15/17 09/15/17 14:21 14:31 14:41 Temperature Pulse Rate 110 H 111 H Pulse Rate [ Anterior Bilateral Throughout] Pulse Rate [ Apical] Pulse Rate [ From Monitor] Pulse Rate [ Left Dorsalis Pedis] Pulse Rate [ Left Radial] Pulse Rate [ Right Dorsalis Pedis] Pulse Rate [ Right Radial] Respiratory 33 H 26 H 34 H Rate Respiratory Rate [Anterior Bilateral Throughout] Blood Pressure 122/81 122/81 122/81 O2 Sat by Pulse 93 96 98 Oximetry 09/15/17 09/15/17 09/15/17 14:51 15:01 15:11 Temperature Pulse Rate 109 H Pulse Rate [ Anterior Bilateral Throughout] Pulse Rate [ Apical] Pulse Rate [ From Monitor] Pulse Rate [ Left Dorsalis Pedis] Pulse Rate [ Left Radial] Pulse Rate [ Right Dorsalis Pedis] Pulse Rate [ Right Radial] Respiratory 33 H Rate Respiratory Rate [Anterior Bilateral Throughout] Blood Pressure 122/81 122/81 135/98 O2 Sat by Pulse 80 L 94 91 Oximetry 09/15/17 09/15/17 15:16 15:43 Temperature 97.5 F L 97.5 F L Pulse Rate Pulse Rate [ Anterior Bilateral Throughout] Pulse Rate [ Apical] Pulse Rate [ From Monitor] Pulse Rate [ Left Dorsalis Pedis] Pulse Rate [ Left Radial] Pulse Rate [ Right Dorsalis Pedis] Pulse Rate [ Right Radial] Respiratory Rate Respiratory Rate [Anterior Bilateral Throughout] Blood Pressure O2 Sat by Pulse Oximetry - General Appearance General appearance: well-developed (no acute distress) EENT: ATNC Neck: no JVD Respiratory: Present: Other (Lung sounds decreased bilaterally, unlabored) Cardiology: regular, S1S2 Gastrointestinal: normoactive bowel sounds, no tenderness Integumentary: warm and dry Neurologic: alert and oriented x3 Musculoskeletal: other (no edema to both lower extremities) - Lab 09/14/17 12:01 09/15/17 04:30 Most recent lab results Calcium 7.4 mg/dL (8.4-10.2) L 09/15/17 04:30 Phosphorus 1.70 mg/dL (2.5-4.5) L D 09/15/17 04:30 Urine Creatinine 47.9 mg/dL (0.1-20.0) H 09/13/17 11:30 Urine Sodium 10 mmol/L 09/13/17 11:30
--- NOTE | 2017-09-15 16:10 | Consultation ---
History of Present Illness Consult date: 09/15/17 Consult reason: congestive heart failure History of present illness: This is a 42yr old male who reports a remote history of dilated cardiomyopathy while living in [place]. 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 He presented on 09/10 with complaints of coughs and shortness of breath, admitted with acute hypoxic respiratory failure. There was no reports of chest pain. A chest xray reports pulmonary edema versus pneumonia. An echocardiogram done this admission demonstrates a dilated left ventricular with severe dysfunction, EF 10-15%. His ECG shows a sinus tachycardia with nonspecific Twave changes. Cardiology consultation was requested for further evaluation. Past History Past Medical History: diabetes, heart failure, hypertension Social history: smoking (1/2 a pack a day for 20 years.) Medications and Allergies Allergies Allergy/AdvReac Type Severity Reaction Status Date / Time No Known Allergies Allergy Verified 09/12/17 03:10 Home Medications Medication Instructions Recorded Confirmed Last Taken Type Furosemide [Lasix] 20 mg PO QDAY #60 tablet 03/09/16 09/12/17 09/11/17 17:50 Rx 20 mg Acetaminophen/Dp-Hydramine 1 each PO PRN 09/12/17 09/12/17 09/11/17 06:00 History [Jayden's Pm Powder Packet] 1 Carvedilol [Coreg] 25 mg PO DAILY 09/13/17 09/13/17 09/08/17 21:00 History 25 Insulin Aspart Protam & Aspart 0 units SQ QAM 09/13/17 09/13/17 09/07/17 08:00 History [NovoLOG Mix 70-30 Flexpen] Levemir 20 units SUB-Q HS 09/13/17 09/13/17 09/07/17 22:00 History Lisinopril [Zestril] 40 mg PO HS 09/13/17 09/13/17 09/08/17 21:00 History amLODIPine [Norvasc] 10 mg PO DAILY 09/13/17 09/13/17 09/08/17 21:00 History Active Meds: Active Medications Acetaminophen (Tylenol) 650 mg PO Q4H PRN PRN Reason: Pain MILD(1-3)/Fever >100.5/[place] Albuterol/Ipratropium (Duoneb *Not For Prn Use*) 1 ampul IH Q6HRT [facility] Last Admin: 09/15/17 13:36 Dose: 1 ampul Bisacodyl (Dulcolax) 10 mg [place] QDAY PRN PRN Reason: Constipation unrelieved by MOM Dextrose (D50w (25gm) Syringe) 50 ml IV PRN PRN PRN Reason: Hypoglycemia Enoxaparin Sodium (Lovenox) 40 mg SUB-Q QDAY [facility] Last Admin: 09/15/17 11:48 Dose: 40 mg Furosemide (Lasix) 20 mg PO QDAY [facility] Last Admin: 09/15/17 11:46 Dose: 20 mg Haloperidol Lactate (Haldol) 5 mg IV Q6H PRN PRN Reason: Agitation Levofloxacin/Dextrose (Levaquin 750mg/150ml) 750 mg in 150 mls @ 100 mls/hr IV Q24H [facility] PRN Reason: Protocol Last Admin: 09/14/17 22:00 Dose: 100 mls/hr Ceftriaxone Sodium 1 gm/ (Sodium Chloride) 20 mls @ 20 mls/10 min IV Q24H [facility] Last Admin: 09/15/17 15:50 Dose: 20 mls/10 min Insulin Aspart (Novolog) 0 units SUB-Q ACHS [facility] PRN Reason: Protocol Last Admin: 09/15/17 15:49 Dose: 8 units Insulin Detemir (Levemir) 25 units SUB-Q DAILY [facility] Last Admin: 09/15/17 15:50 Dose: 25 units Magnesium Hydroxide (Milk Of Magnesia) 30 ml PO Q4H PRN PRN Reason: Constipation Methylprednisolone Sodium Succinate (Solu-Medrol) 40 mg IV Q12HR [facility] Last Admin: 09/15/17 11:49 Dose: 40 mg Ondansetron HCl (Zofran) 4 mg IV Q8H PRN PRN Reason: N/V unrelieved by Reglan Pantoprazole Sodium (Protonix) 40 mg PO DAILY [facility] Last Admin: 09/15/17 11:49 Dose: 40 mg Potassium Phos/Sodium Phos (Phos-Nak) 2 each PO Q12HR [facility] Stop: 09/16/17 22:01 Last Admin: 09/15/17 11:48 Dose: Not Given Quetiapine Fumarate (Seroquel) 50 mg PO QHS [facility] Physical Examination Vital Signs Pulse 123 H 09/10/17 20:41 General appearance: no acute distress HEENT: Positive: PERRL Cardiac: Positive: Tachycardia Results 09/14/17 12:01 09/15/17 04:30 Comprehensive Metabolic Panel 09/15/17 Range/Units 04:30 Sodium 126 L (137-145) mmol/L Potassium 4.8 (3.6-5.0) mmol/L Chloride 87.8 L (98-107) mmol/L Carbon Dioxide 25 (22-30) mmol/L BUN 26 H (9-20) mg/dL Creatinine 0.7 L (0.8-1.5) mg/dL Glucose 276 H (75-100) mg/dL Calcium 7.4 L (8.4-10.2) mg/dL Assessment and Plan Pneumonia Acute systolic heart failure EF 10-15% on echocardiogram. Diabetes Hypertension
[2017-09-15 18:08] LABS: Hematocrit 49.4 % (35.5-45.6); Hemoglobin 16.4 gm/dl (11.8-15.2); Mean Corpuscular HGB Conc 33 % (32-34); Mean Corpuscular Hemoglobin 28 pg (28-32); Mean Corpuscular Volume 86 fl (84-94); Platelet Count 283 K/mm3 (140-440); Red Blood Count 5.77 M/mm3 (3.65-5.03)
[2017-09-15 18:12] LABS: BUN/Creatinine Ratio 36; Blood Urea Nitrogen 25 mg/dL (9-20); Calcium 7.3 mg/dL (8.4-10.2); Hemolysis Index 208
[2017-09-15] MEDS ORDERED: BABY ASPIRIN PO SCH (19:00)
[2017-09-15 19:46] LABS: Band Neutrophils # (Manual) 0.4 K/mm3; Basophils % (Manual) 0 % (0.0-1.8); Eosinophils % (Manual) 0 % (0.0-4.3); Myelocytes # (Manual) 0.3 K/mm3; Platelet Estimate Consistent w Auto; Total Cells Counted 100
[2017-09-15] MEDS ORDERED: ZESTRIL PO SCH (20:00)
[2017-09-15] MEDS ORDERED: MILRINONE-D5W 20 MG/100 ML 20 MG/100 ML BAG IV SCH (20:00)
[2017-09-15] MEDS: LEVAQUIN 750MG/150ML 750 MG/150 ML BAG IV SCH (21:48)
[2017-09-15] MEDS ORDERED: COREG PO SCH (22:00)
[2017-09-16] MEDS: DUONEB *Not for PRN Use IH SCH ×2 (03:31→08:48)
[2017-09-16 05:05] LABS: BUN/Creatinine Ratio 38; Blood Urea Nitrogen 19 mg/dL (9-20); Calcium 7.1 mg/dL (8.4-10.2); Hemolysis Index 227
[2017-09-16 07:52] LABS: Hematocrit 48.8 % (35.5-45.6); Hemoglobin 16.1 gm/dl (11.8-15.2); Mean Corpuscular HGB Conc 33 % (32-34); Mean Corpuscular Hemoglobin 28 pg (28-32); Mean Corpuscular Volume 86 fl (84-94); Platelet Count 294 K/mm3 (140-440)
[2017-09-16 07:59] LABS: Chloride, Urine 20.4 mmolL (110-250)
[2017-09-16] MEDS: NOVOLOG SUB-Q SCH (08:36)
--- NOTE | 2017-09-16 09:46 | Progress Note ---
Subjective Date of service: 09/16/17 Principal diagnosis: Acute hypoxic respiratory failure, bilateral infiltrates, encephalopathy, Interval history: Follow up for acute hypoxemic respiratory failure, bilateral pulmonary infiltrates, encephalopathy Seen and examined. Vitals, labs, medications, chart and imaging reviewed. Discussed with RN and RT Episodes of agitation as per RN. Throwing off the covers, pulled out his IV and stated that he is going home Objective Vital Signs - 12hr 09/15/17 09/15/17 09/15/17 21:49 21:51 22:00 Temperature Pulse Rate 121 H 119 H 116 H Pulse Rate [ From Monitor] Respiratory 26 H 32 H Rate Blood Pressure 116/81 146/106 130/94 O2 Sat by Pulse 94 92 Oximetry 09/15/17 09/15/17 09/15/17 22:11 22:21 22:31 Temperature Pulse Rate 111 H 110 H 111 H Pulse Rate [ From Monitor] Respiratory 29 H 15 21 Rate Blood Pressure 116/81 116/81 116/81 O2 Sat by Pulse 96 97 95 Oximetry 09/15/17 09/15/17 09/15/17 22:41 22:51 23:01 Temperature Pulse Rate 105 H 101 H 102 H Pulse Rate [ From Monitor] Respiratory 21 17 15 Rate Blood Pressure 130/94 130/94 104/67 O2 Sat by Pulse 98 98 94 Oximetry 09/15/17 09/15/17 09/15/17 23:11 23:21 23:31 Temperature Pulse Rate 103 H 102 H 109 H Pulse Rate [ From Monitor] Respiratory 17 18 21 Rate Blood Pressure 130/94 130/94 130/94 O2 Sat by Pulse 98 96 97 Oximetry 09/15/17 09/15/17 09/16/17 23:41 23:51 00:00 Temperature 98.6 F Pulse Rate 103 H 101 H 100 H Pulse Rate [ 98 H From Monitor] Respiratory 17 17 18 Rate Blood Pressure 104/67 104/67 98/64 O2 Sat by Pulse 95 96 96 Oximetry 09/16/17 09/16/17 09/16/17 00:11 00:21 00:31 Temperature Pulse Rate 139 H 125 H 120 H Pulse Rate [ From Monitor] Respiratory 35 H 17 26 H Rate Blood Pressure 98/64 98/64 98/64 O2 Sat by Pulse 82 L 83 L 77 L Oximetry 09/16/17 09/16/17 09/16/17 00:41 00:51 01:00 Temperature Pulse Rate 108 H 102 H 102 H Pulse Rate [ From Monitor] Respiratory 17 15 15 Rate Blood Pressure 98/64 98/64 108/60 O2 Sat by Pulse 94 93 95 Oximetry 09/16/17 09/16/17 09/16/17 01:11 01:21 01:31 Temperature Pulse Rate 97 H 97 H 102 H Pulse Rate [ From Monitor] Respiratory 15 16 19 Rate Blood Pressure 98/64 98/64 98/64 O2 Sat by Pulse 98 98 97 Oximetry 09/16/17 09/16/17 09/16/17 01:41 01:51 02:00 Temperature Pulse Rate 95 H 96 H 107 H Pulse Rate [ From Monitor] Respiratory 21 14 20 Rate Blood Pressure 98/64 98/64 111/75 O2 Sat by Pulse 98 97 98 Oximetry 09/16/17 09/16/17 09/16/17 02:11 02:21 02:31 Temperature Pulse Rate 100 H 109 H 122 H Pulse Rate [ From Monitor] Respiratory 17 15 14 Rate Blood Pressure 111/75 111/75 111/75 O2 Sat by Pulse 97 93 84 Oximetry 09/16/17 09/16/17 09/16/17 02:41 02:51 03:00 Temperature Pulse Rate 126 H 109 H 105 H Pulse Rate [ From Monitor] Respiratory 21 20 18 Rate Blood Pressure 111/75 111/75 119/83 O2 Sat by Pulse 77 L 87 92 Oximetry 09/16/17 09/16/17 09/16/17 03:11 03:21 03:30 Temperature Pulse Rate 103 H 109 H Pulse Rate [ From Monitor] Respiratory 20 14 Rate Blood Pressure 119/83 119/83 O2 Sat by Pulse 97 97 97 Oximetry 09/16/17 09/16/17 09/16/17 03:31 03:41 03:51 Temperature Pulse Rate 94 H 98 H 102 H Pulse Rate [ From Monitor] Respiratory 17 17 19 Rate Blood Pressure 119/83 119/83 119/83 O2 Sat by Pulse 95 97 98 Oximetry 09/16/17 09/16/17 09/16/17 04:00 04:11 04:21 Temperature 98.4 F Pulse Rate 104 H 97 H 97 H Pulse Rate [ 110 H From Monitor] Respiratory 19 18 18 Rate Blood Pressure 107/74 107/74 107/74 O2 Sat by Pulse 97 94 96 Oximetry 09/16/17 09/16/17 09/16/17 04:31 04:41 04:51 Temperature Pulse Rate 107 H 108 H 109 H Pulse Rate [ From Monitor] Respiratory 19 12 19 Rate Blood Pressure 107/74 107/74 107/74 O2 Sat by Pulse 95 98 98 Oximetry 09/16/17 09/16/17 09/16/17 05:00 05:11 05:21 Temperature Pulse Rate 107 H 97 H 106 H Pulse Rate [ From Monitor] Respiratory 19 20 16 Rate Blood Pressure 118/85 118/85 107/74 O2 Sat by Pulse 96 92 98 Oximetry 09/16/17 09/16/17 09/16/17 05:31 05:41 05:51 Temperature Pulse Rate 96 H 92 H 90 Pulse Rate [ From Monitor] Respiratory 37 H 18 16 Rate Blood Pressure 107/74 107/74 107/74 O2 Sat by Pulse 95 97 98 Oximetry 09/16/17 09/16/17 09/16/17 06:00 06:11 06:21 Temperature Pulse Rate 92 H 93 H 95 H Pulse Rate [ From Monitor] Respiratory 16 16 18 Rate Blood Pressure 110/71 110/71 110/71 O2 Sat by Pulse 98 98 Oximetry 09/16/17 09/16/17 09/16/17 06:31 06:41 06:51 Temperature Pulse Rate 95 H 94 H 113 H Pulse Rate [ From Monitor] Respiratory 16 17 20 Rate Blood Pressure 110/71 110/71 110/71 O2 Sat by Pulse 97 98 99 Oximetry 09/16/17 09/16/17 09/16/17 07:00 07:11 07:21 Temperature Pulse Rate 118 H 105 H 112 H Pulse Rate [ From Monitor] Respiratory 22 17 18 Rate Blood Pressure 130/106 130/106 130/106 O2 Sat by Pulse 91 95 Oximetry 09/16/17 09/16/17 09/16/17 07:31 07:41 07:51 Temperature Pulse Rate 117 H 108 H 107 H Pulse Rate [ From Monitor] Respiratory 24 14 14 Rate Blood Pressure 130/106 130/106 130/106 O2 Sat by Pulse 80 L 87 81 L Oximetry 09/16/17 09/16/17 09/16/17 08:00 08:11 08:21 Temperature 98.2 F Pulse Rate 114 H 111 H 115 H Pulse Rate [ 110 H From Monitor] Respiratory 12 14 12 Rate Blood Pressure 137/105 137/105 137/105 O2 Sat by Pulse 86 82 L 82 L Oximetry 09/16/17 08:31 Temperature Pulse Rate 120 H Pulse Rate [ From Monitor] Respiratory 15 Rate Blood Pressure 137/105 O2 Sat by Pulse 84 Oximetry Constitutional: no acute distress, lethargic, asleep Eyes: non-icteric ENT: oropharynx dry Neck: supple, no JVD Effort: mildly labored Ascultation: Bilateral: diminished breath sounds, rhonchi Percussion: Bilateral: not dull Cardiovascular: regular rate and rhythm Gastrointestinal: normoactive bowel sounds, soft, non-tender Integumentary: normal, rash Extremities: no cyanosis, no edema Neurologic: unable to assess Psychiatric: other (Unable to assess due mental status.) CBC and BMP: 09/16/17 07:39 09/16/17 04:00 ABG, PT/INR, D-dimer: ABG POC ABG pH 7.397 (7.35-7.45) 09/12/17 11:08 POC ABG pCO2 37.9 (35-45) 09/12/17 11:08 POC ABG pO2 86 (80-105) 09/12/17 11:08 POC ABG HCO3 23.3 09/12/17 11:08 POC ABG Total CO2 24 09/12/17 11:08 POC ABG O2 Sat 97 09/12/17 11:08 PT/INR, D-dimer PT 12.6 Sec. (12.2-14.9) 09/10/17 21:03 INR 0.90 (0.87-1.13) 09/10/17 21:03 D-Dimer 565.03 ng/mlDDU (0-234) H 09/10/17 21:03 Abnormal lab findings: Abnormal Labs 09/10/17 09/10/17 09/10/17 21:03 21:03 21:03 WBC RBC 6.16 H Hgb 17.9 H Hct 52.9 H Plt Count 126 L Lymph % (Auto) 8.5 L Winn % (Auto) Lymph # 0.4 L Baso # Seg Neutrophils % 85.2 H Seg Neuts % (Manual) Lymphocytes % (Manual) Seg Neutrophils # Seg Neutrophils # Man Lymphocytes # (Manual) APTT 67.9 H* D-Dimer 565.03 H POC ABG pH POC ABG pCO2 POC ABG pO2 Sodium 124 L Potassium Chloride 82.7 L Carbon Dioxide 21 L BUN 25 H Creatinine Glucose 320 H POC Glucose Lactic Acid Calcium Phosphorus AST 110 H C-Reactive Protein NT-Pro-B Natriuret Pep 1039 H Total Protein 5.4 L Albumin 2.6 L Urine Creatinine Urine Chloride 09/10/17 09/10/17 09/11/17 21:27 23:24 12:57 WBC RBC Hgb Hct Plt Count Lymph % (Auto) Winn % (Auto) Lymph # Baso # Seg Neutrophils % Seg Neuts % (Manual) Lymphocytes % (Manual) Seg Neutrophils # Seg Neutrophils # Man Lymphocytes # (Manual) APTT D-Dimer POC ABG pH POC ABG pCO2 32.1 L POC ABG pO2 Sodium Potassium Chloride Carbon Dioxide BUN Creatinine Glucose POC Glucose 254 H 219 H Lactic Acid Calcium Phosphorus AST C-Reactive Protein NT-Pro-B Natriuret Pep Total Protein Albumin Urine Creatinine Urine Chloride 09/11/17 09/11/17 09/11/17 16:18 20:51 21:47 WBC RBC Hgb Hct Plt Count Lymph % (Auto) Winn % (Auto) Lymph # Baso # Seg Neutrophils % Seg Neuts % (Manual) Lymphocytes % (Manual) Seg Neutrophils # Seg Neutrophils # Man Lymphocytes # (Manual) APTT D-Dimer POC ABG pH 7.455 H POC ABG pCO2 33.3 L POC ABG pO2 68 L Sodium Potassium Chloride Carbon Dioxide BUN Creatinine Glucose POC Glucose 300 H 253 H Lactic Acid Calcium Phosphorus AST C-Reactive Protein NT-Pro-B Natriuret Pep Total Protein Albumin Urine Creatinine Urine Chloride 09/12/17 09/12/17 09/12/17 03:31 03:31 08:14 WBC 2.8 L RBC 5.91 H Hgb 17.1 H Hct 49.8 H Plt Count 94 L Lymph % (Auto) Winn % (Auto) 9.6 H Lymph # 0.5 L Baso # Seg Neutrophils % 71.8 H Seg Neuts % (Manual) Lymphocytes % (Manual) Seg Neutrophils # Seg Neutrophils # Man Lymphocytes # (Manual) APTT D-Dimer POC ABG pH POC ABG pCO2 POC ABG pO2 Sodium 122 L Potassium Chloride 84.4 L Carbon Dioxide BUN 28 H Creatinine Glucose 270 H POC Glucose 207 H Lactic Acid Calcium 7.5 L Phosphorus AST C-Reactive Protein NT-Pro-B Natriuret Pep Total Protein Albumin Urine Creatinine Urine Chloride 09/12/17 09/12/17 09/12/17 11:36 17:41 21:52 WBC RBC Hgb Hct Plt Count Lymph % (Auto) Winn % (Auto) Lymph # Baso # Seg Neutrophils % Seg Neuts % (Manual) Lymphocytes % (Manual) Seg Neutrophils # Seg Neutrophils # Man Lymphocytes # (Manual) APTT D-Dimer POC ABG pH POC ABG pCO2 POC ABG pO2 Sodium Potassium Chloride Carbon Dioxide BUN Creatinine Glucose POC Glucose 264 H 295 H 254 H Lactic Acid Calcium Phosphorus AST C-Reactive Protein NT-Pro-B Natriuret Pep Total Protein Albumin Urine Creatinine Urine Chloride 09/13/17 09/13/17 09/13/17 03:24 11:30 12:15 WBC RBC Hgb Hct Plt Count Lymph % (Auto) Winn % (Auto) Lymph # Baso # Seg Neutrophils % Seg Neuts % (Manual) Lymphocytes % (Manual) Seg Neutrophils # Seg Neutrophils # Man Lymphocytes # (Manual) APTT D-Dimer POC ABG pH POC ABG pCO2 POC ABG pO2 Sodium 127 L Potassium Chloride 86.1 L Carbon Dioxide BUN 35 H Creatinine Glucose 322 H POC Glucose 274 H Lactic Acid Calcium 7.3 L Phosphorus AST C-Reactive Protein NT-Pro-B Natriuret Pep Total Protein Albumin Urine Creatinine 47.9 H Urine Chloride 09/13/17 09/13/17 09/14/17 16:45 21:36 03:05 WBC RBC Hgb Hct Plt Count Lymph % (Auto) Winn % (Auto) Lymph # Baso # Seg Neutrophils % Seg Neuts % (Manual) Lymphocytes % (Manual) Seg Neutrophils # Seg Neutrophils # Man Lymphocytes # (Manual) APTT D-Dimer POC ABG pH POC ABG pCO2 POC ABG pO2 Sodium 129 L Potassium Chloride 89.7 L Carbon Dioxide BUN 31 H Creatinine Glucose 281 H POC Glucose 291 H 294 H Lactic Acid Calcium 7.1 L Phosphorus AST C-Reactive Protein NT-Pro-B Natriuret Pep Total Protein Albumin Urine Creatinine Urine Chloride 09/14/17 09/14/17 09/14/17 07:40 11:36 12:01 WBC 13.5 H RBC 5.86 H Hgb 16.6 H Hct 50.0 H Plt Count Lymph % (Auto) 3.4 L Winn % (Auto) Lymph # 0.5 L Baso # 0.2 H Seg Neutrophils % 89.9 H Seg Neuts % (Manual) Lymphocytes % (Manual) Seg Neutrophils # 12.1 H Seg Neutrophils # Man Lymphocytes # (Manual) APTT D-Dimer POC ABG pH POC ABG pCO2 POC ABG pO2 Sodium Potassium Chloride Carbon Dioxide BUN Creatinine Glucose POC Glucose 257 H 327 H Lactic Acid Calcium Phosphorus AST C-Reactive Protein NT-Pro-B Natriuret Pep Total Protein Albumin Urine Creatinine Urine Chloride 09/14/17 09/14/17 09/14/17 12:01 16:21 20:50 WBC RBC Hgb Hct Plt Count Lymph % (Auto) Winn % (Auto) Lymph # Baso # Seg Neutrophils % Seg Neuts % (Manual) Lymphocytes % (Manual) Seg Neutrophils # Seg Neutrophils # Man Lymphocytes # (Manual) APTT D-Dimer POC ABG pH POC ABG pCO2 POC ABG pO2 Sodium 129 L Potassium Chloride 87.3 L Carbon Dioxide BUN 32 H Creatinine Glucose 355 H POC Glucose 294 H Lactic Acid 3.50 H* Calcium 7.4 L Phosphorus AST C-Reactive Protein NT-Pro-B Natriuret Pep Total Protein Albumin Urine Creatinine Urine Chloride 09/14/17 09/14/17 09/15/17 20:50 21:53 04:30 WBC RBC Hgb Hct Plt Count Lymph % (Auto) Winn % (Auto) Lymph # Baso # Seg Neutrophils % Seg Neuts % (Manual) Lymphocytes % (Manual) Seg Neutrophils # Seg Neutrophils # Man Lymphocytes # (Manual) APTT D-Dimer POC ABG pH POC ABG pCO2 POC ABG pO2 Sodium 126 L Potassium Chloride 87.8 L Carbon Dioxide BUN 26 H Creatinine 0.7 L Glucose 276 H POC Glucose 270 H Lactic Acid Calcium 7.4 L Phosphorus 1.70 L D AST C-Reactive Protein 1.90 H NT-Pro-B Natriuret Pep Total Protein Albumin Urine Creatinine Urine Chloride 09/15/17 09/15/17 09/15/17 07:15 12:07 15:22 WBC RBC Hgb Hct Plt Count Lymph % (Auto) Winn % (Auto) Lymph # Baso # Seg Neutrophils % Seg Neuts % (Manual) Lymphocytes % (Manual) Seg Neutrophils # Seg Neutrophils # Man Lymphocytes # (Manual) APTT D-Dimer POC ABG pH POC ABG pCO2 POC ABG pO2 Sodium Potassium Chloride Carbon Dioxide BUN Creatinine Glucose POC Glucose 221 H 295 H 334 H Lactic Acid Calcium Phosphorus AST C-Reactive Protein NT-Pro-B Natriuret Pep Total Protein Albumin Urine Creatinine Urine Chloride 09/15/17 09/15/17 09/15/17 17:34 17:34 21:06 WBC 12.8 H RBC 5.77 H Hgb 16.4 H Hct 49.4 H Plt Count Lymph % (Auto) Winn % (Auto) Lymph # Baso # Seg Neutrophils % Seg Neuts % (Manual) 86.0 H Lymphocytes % (Manual) 5.0 L Seg Neutrophils # Seg Neutrophils # Man 11.0 H Lymphocytes # (Manual) 0.6 L APTT D-Dimer POC ABG pH POC ABG pCO2 POC ABG pO2 Sodium 129 L Potassium 6.0 H D Chloride 90.5 L Carbon Dioxide BUN 25 H Creatinine 0.7 L Glucose 325 H POC Glucose 306 H Lactic Acid Calcium 7.3 L Phosphorus AST C-Reactive Protein NT-Pro-B Natriuret Pep Total Protein Albumin Urine Creatinine Urine Chloride 09/16/17 09/16/17 09/16/17 04:00 07:00 07:39 WBC 11.9 H RBC 5.70 H Hgb 16.1 H Hct 48.8 H Plt Count Lymph % (Auto) Winn % (Auto) Lymph # Baso # Seg Neutrophils % Seg Neuts % (Manual) Lymphocytes % (Manual) Seg Neutrophils # Seg Neutrophils # Man Lymphocytes # (Manual) APTT D-Dimer POC ABG pH POC ABG pCO2 POC ABG pO2 Sodium 133 L Potassium 5.8 H Chloride 97.1 L Carbon Dioxide BUN Creatinine 0.5 L Glucose 196 H POC Glucose Lactic Acid Calcium 7.1 L Phosphorus 2.00 L AST C-Reactive Protein NT-Pro-B Natriuret Pep Total Protein Albumin Urine Creatinine 50.0 H Urine Chloride 20.4 L Allied health notes reviewed: RT
--- NOTE | 2017-09-16 10:04 | Progress Note ---
Assessment and Plan - Patient Problems (1) Bilateral pneumonia Current Visit: Yes Status: Acute Qualifiers: Pneumonia type: due to unspecified organism Lung location: unspecified part of lung Qualified Code(s): J18.9 - Pneumonia, unspecified organism Plan to address problem: On Rocephin and levaquin As per primary team (2) Hyponatremia Current Visit: Yes Status: Acute Plan to address problem: Labs reviewed Possibly secondary to SIADH from pneumonia Serum sodium level was 133 today, gradually improving Repeat urine studies reviewed showed urine sodium of 46, urine osmolality of 597 Repeat serum osmolality pending On fluid restriction of 750 ml per day BNP was 1039 on admission On Lasix 20 mg orally once a day, monitor volume status/UOP closely, and adjust diuretic regimen as needed Echocardiogram EF 10-15% Strict intake and output Lyles Catheter: No Intake= 1148 ml Output= 200 ml (Net= 948 ml) Renal plan discussed with Dr Flores Continue supportive therapy (3) Hyperkalemia Current Visit: Yes Status: Acute Plan to address problem: Discontinue remaining potassium/sodium phosphate supplementations (has 3 doses remaining) Patient eating diet without difficulty, repeat phosphorus level in morning, may be able to have adequate repletion of phosphorus through diet Needs low potassium diet Repeat BMP at 1200, if potassium remains elevated, will likely order kayexalate (4) Diabetes mellitus type 2, insulin dependent Current Visit: Yes Status: Acute Plan to address problem: On insulin As per primary team (5) Congestive heart failure Current Visit: Yes Status: Acute Plan to address problem: Cardiology on board, started on lisinopril Echo EF 10-15% On Lasix 20 mg orally once a day Follow up cardiology recs Subjective Date of service: 09/16/17 Principal diagnosis: Acute hypoxic respiratory failure, bilateral infiltrates, encephalopathy, Interval history: Patient seen in the ICU, states he is going home because he can't have as much water to drink as he would like, denies shortness of breath. No family at bedside at time of my examination Objective - Vital Signs Vital signs: Vital Signs - 12hr 09/15/17 09/15/17 09/15/17 22:00 22:11 22:21 Temperature Pulse Rate 116 H 111 H 110 H Pulse Rate [ From Monitor] Respiratory 32 H 29 H 15 Rate Blood Pressure 130/94 116/81 116/81 O2 Sat by Pulse 92 96 97 Oximetry 01/09/18 01/09/18 01/09/18 22:31 22:41 22:51 Temperature Pulse Rate 111 H 105 H 101 H Pulse Rate [ From Monitor] Respiratory 21 21 17 Rate Blood Pressure 116/81 130/94 130/94 O2 Sat by Pulse 95 98 98 Oximetry 09/15/17 09/15/17 09/15/17 23:01 23:11 23:21 Temperature Pulse Rate 102 H 103 H 102 H Pulse Rate [ From Monitor] Respiratory 15 17 18 Rate Blood Pressure 104/67 130/94 130/94 O2 Sat by Pulse 94 98 96 Oximetry 09/15/17 09/15/17 09/15/17 23:31 23:41 23:51 Temperature Pulse Rate 109 H 103 H 101 H Pulse Rate [ From Monitor] Respiratory 21 17 17 Rate Blood Pressure 130/94 104/67 104/67 O2 Sat by Pulse 97 95 96 Oximetry 09/16/17 09/16/17 09/16/17 00:00 00:11 00:21 Temperature 98.6 F Pulse Rate 100 H 139 H 125 H Pulse Rate [ 98 H From Monitor] Respiratory 18 35 H 17 Rate Blood Pressure 98/64 98/64 98/64 O2 Sat by Pulse 96 82 L 83 L Oximetry 09/16/17 09/16/17 09/16/17 00:31 00:41 00:51 Temperature Pulse Rate 120 H 108 H 102 H Pulse Rate [ From Monitor] Respiratory 26 H 17 15 Rate Blood Pressure 98/64 98/64 98/64 O2 Sat by Pulse 77 L 94 93 Oximetry 09/16/17 09/16/17 09/16/17 01:00 01:11 01:21 Temperature Pulse Rate 102 H 97 H 97 H Pulse Rate [ From Monitor] Respiratory 15 15 16 Rate Blood Pressure 108/60 98/64 98/64 O2 Sat by Pulse 95 98 98 Oximetry 09/16/17 09/16/17 09/16/17 01:31 01:41 01:51 Temperature Pulse Rate 102 H 95 H 96 H Pulse Rate [ From Monitor] Respiratory 19 21 14 Rate Blood Pressure 98/64 98/64 98/64 O2 Sat by Pulse 97 98 97 Oximetry 09/16/17 09/16/17 09/16/17 02:00 02:11 02:21 Temperature Pulse Rate 107 H 100 H 109 H Pulse Rate [ From Monitor] Respiratory 20 17 15 Rate Blood Pressure 111/75 111/75 111/75 O2 Sat by Pulse 98 97 93 Oximetry 09/16/17 09/16/17 09/16/17 02:31 02:41 02:51 Temperature Pulse Rate 122 H 126 H 109 H Pulse Rate [ From Monitor] Respiratory 14 21 20 Rate Blood Pressure 111/75 111/75 111/75 O2 Sat by Pulse 84 77 L 87 Oximetry 09/16/17 09/16/17 09/16/17 03:00 03:11 03:21 Temperature Pulse Rate 105 H 103 H 109 H Pulse Rate [ From Monitor] Respiratory 18 20 14 Rate Blood Pressure 119/83 119/83 119/83 O2 Sat by Pulse 92 97 97 Oximetry 09/16/17 09/16/17 09/16/17 03:30 03:31 03:41 Temperature Pulse Rate 94 H 98 H Pulse Rate [ From Monitor] Respiratory 17 17 Rate Blood Pressure 119/83 119/83 O2 Sat by Pulse 97 95 97 Oximetry 09/16/17 09/16/17 09/16/17 03:51 04:00 04:11 Temperature 98.4 F Pulse Rate 102 H 104 H 97 H Pulse Rate [ 110 H From Monitor] Respiratory 19 19 18 Rate Blood Pressure 119/83 107/74 107/74 O2 Sat by Pulse 98 97 94 Oximetry 09/16/17 09/16/17 09/16/17 04:21 04:31 04:41 Temperature Pulse Rate 97 H 107 H 108 H Pulse Rate [ From Monitor] Respiratory 18 19 12 Rate Blood Pressure 107/74 107/74 107/74 O2 Sat by Pulse 96 95 98 Oximetry 09/16/17 09/16/17 09/16/17 04:51 05:00 05:11 Temperature Pulse Rate 109 H 107 H 97 H Pulse Rate [ From Monitor] Respiratory 19 19 20 Rate Blood Pressure 107/74 118/85 118/85 O2 Sat by Pulse 98 96 92 Oximetry 09/16/17 09/16/17 09/16/17 05:21 05:31 05:41 Temperature Pulse Rate 106 H 96 H 92 H Pulse Rate [ From Monitor] Respiratory 16 37 H 18 Rate Blood Pressure 107/74 107/74 107/74 O2 Sat by Pulse 98 95 97 Oximetry 09/16/17 09/16/17 09/16/17 05:51 06:00 06:11 Temperature Pulse Rate 90 92 H 93 H Pulse Rate [ From Monitor] Respiratory 16 16 16 Rate Blood Pressure 107/74 110/71 110/71 O2 Sat by Pulse 98 98 Oximetry 09/16/17 09/16/17 09/16/17 06:21 06:31 06:41 Temperature Pulse Rate 95 H 95 H 94 H Pulse Rate [ From Monitor] Respiratory 18 16 17 Rate Blood Pressure 110/71 110/71 110/71 O2 Sat by Pulse 98 97 98 Oximetry 09/16/17 09/16/17 09/16/17 06:51 07:00 07:11 Temperature Pulse Rate 113 H 118 H 105 H Pulse Rate [ From Monitor] Respiratory 20 22 17 Rate Blood Pressure 110/71 130/106 130/106 O2 Sat by Pulse 99 91 Oximetry 09/16/17 09/16/17 09/16/17 07:21 07:31 07:41 Temperature Pulse Rate 112 H 117 H 108 H Pulse Rate [ From Monitor] Respiratory 18 24 14 Rate Blood Pressure 130/106 130/106 130/106 O2 Sat by Pulse 95 80 L 87 Oximetry 09/16/17 09/16/17 09/16/17 07:51 08:00 08:11 Temperature 98.2 F Pulse Rate 107 H 114 H 111 H Pulse Rate [ 110 H From Monitor] Respiratory 14 12 14 Rate Blood Pressure 130/106 137/105 137/105 O2 Sat by Pulse 81 L 86 82 L Oximetry 09/16/17 09/16/17 08:21 08:31 Temperature Pulse Rate 115 H 120 H Pulse Rate [ From Monitor] Respiratory 12 15 Rate Blood Pressure 137/105 137/105 O2 Sat by Pulse 82 L 84 Oximetry - General Appearance General appearance: well-developed EENT: ATNC Neck: no JVD Respiratory: Present: Other (Lung sounds decreased bilaterally, unlabored) Cardiology: tachycardia, S1S2 Gastrointestinal: normoactive bowel sounds, no tenderness Integumentary: warm and dry Neurologic: alert and oriented x3 Musculoskeletal: other (no edema to both lower extremities) Psychiatric: agitated - Lab 09/16/17 07:39 09/16/17 04:00 Most recent lab results Calcium 7.1 mg/dL (8.4-10.2) L 09/16/17 04:00 Phosphorus 2.00 mg/dL (2.5-4.5) L 09/16/17 04:00 Urine Creatinine 50.0 mg/dL (0.1-20.0) H 09/16/17 07:00 Urine Sodium 46 mmol/L 09/16/17 07:00
[2017-09-16 10:26] LABS: Band Neutrophils # (Manual) 0.1 K/mm3; Basophils % (Manual) 0 % (0.0-1.8); Total Cells Counted 100
[2017-09-16 10:27] LABS: Eosinophils % (Manual) 0 % (0.0-4.3); Platelet Estimate Consistent w Auto; RBC Morphology Normal
[2017-09-16 11:34] VITALS: BP 135/93
--- NOTE | 2017-09-17 17:32 | Progress Note ---
Assessment and Plan Assessment and plan: This is a 42-year-old man with a history of hypertension, diabetes, CHF, emergency room with complaints of cough, nonproductive, shortness of breath and decreased energy with generalized weakness since Thursday. 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 The aggregate critical care time was [44] minutes. This time is in addition to time spent performing reported procedures but includes the following: [] Data Review and interpretation [] Patient assessment and monitoring of vital signs [] Documentation [] Medication orders and management History Interval history: patient states that he feels thirsty all the time RN states that he keeps asking for water Review of systems Constitutional: No fevers, no joint pains, admits fatigue CVS: No chest pain, no orthopnea, no dyspnea on exertion, no pedal edema GI: No abdominal pain, no diarrhea, no vomiting, no constipation Respiratory: c/o of SOB, but claims it is improving Hospitalist Physical - Physical exam Narrative exam: General.: moderate respiratory distress HEENT: Moist mucous membranes, extraocular muscles intact, no lymphadenopathy Neck: supple Cardiac: S1-S2 heard Lungs: decreased air entry Abdomen: soft , nontender, nondistended, bowel sounds positive Extremities: no edema clubbing or cyanosis Skin: no rash or lesions Neurologic: no gross focal deficits Psych: appropriate behavior, appropriate mood, corporative, judgment intact - Constitutional Vitals: Temp Pulse Resp BP Pulse Ox 98.2 F 129 H 23 135/93 87 09/16/17 08:00 09/16/17 10:30 09/16/17 10:30 09/16/17 10:30 09/16/17 10:21 General appearance: Present: no acute distress Results - Labs CBC & Chem 7: 09/16/17 07:39 09/16/17 04:00 Labs: Laboratory Last Values WBC 11.9 K/mm3 (4.5-11.0) H 09/16/17 07:39 RBC 5.70 M/mm3 (3.65-5.03) H 09/16/17 07:39 Hgb 16.1 gm/dl (11.8-15.2) H 09/16/17 07:39 Hct 48.8 % (35.5-45.6) H 09/16/17 07:39 MCV 86 fl (84-94) 09/16/17 07:39 MCH 28 pg (28-32) 09/16/17 07:39 MCHC 33 % (32-34) 09/16/17 07:39 RDW 15.0 % (13.2-15.2) 09/16/17 07:39 Plt Count 294 K/mm3 (140-440) 09/16/17 07:39 Lymph % (Auto) 3.4 % (13.4-35.0) L 09/14/17 12:01 [place] % (Auto) 5.4 % (0.0-7.3) 09/14/17 12:01 Eos % (Auto) 0.0 % (0.0-4.3) 09/14/17 12:01 Baso % (Auto) 1.3 % (0.0-1.8) 09/14/17 12:01 Lymph # 0.5 K/mm3 (1.2-5.4) L 09/14/17 12:01 Chester # 0.7 K/mm3 (0.0-0.8) 09/14/17 12:01 Eos # 0.0 K/mm3 (0.0-0.4) 09/14/17 12:01 Baso # 0.2 K/mm3 (0.0-0.1) H 09/14/17 12:01 Add Manual Diff Complete 09/16/17 07:39 Total Counted 100 09/16/17 07:39 Seg Neutrophils % 89.9 % (40.0-70.0) H 09/14/17 12:01 Seg Neuts % (Manual) 92.0 % (40.0-70.0) H 09/16/17 07:39 Band Neutrophils % 1.0 % 09/16/17 07:39 Lymphocytes % (Manual) 2.0 % (13.4-35.0) L 09/16/17 07:39 Reactive Lymphs % (Man) 0 % 09/16/17 07:39 Monocytes % (Manual) 4.0 % (0.0-7.3) 09/16/17 07:39 Eosinophils % (Manual) 0 % (0.0-4.3) 09/16/17 07:39 Basophils % (Manual) 0 % (0.0-1.8) 09/16/17 07:39 Metamyelocytes % 1.0 % 09/16/17 07:39 Myelocytes % 0 % 09/16/17 07:39 Promyelocytes % 0 % 09/16/17 07:39 Blast Cells % 0 % 09/16/17 07:39 Nucleated RBC % 1.0 % (0.0-0.9) H 09/16/17 07:39 Seg Neutrophils # 12.1 K/mm3 (1.8-7.7) H 09/14/17 12:01 Seg Neutrophils # Man 10.9 K/mm3 (1.8-7.7) H 09/16/17 07:39 Band Neutrophils # 0.1 K/mm3 09/16/17 07:39 Lymphocytes # (Manual) 0.2 K/mm3 (1.2-5.4) L 09/16/17 07:39 Abs React Lymphs (Man) 0.0 K/mm3 09/16/17 07:39 Monocytes # (Manual) 0.5 K/mm3 (0.0-0.8) 09/16/17 07:39 Eosinophils # (Manual) 0.0 K/mm3 (0.0-0.4) 09/16/17 07:39 Basophils # (Manual) 0.0 K/mm3 (0.0-0.1) 09/16/17 07:39 Metamyelocytes # 0.1 K/mm3 09/16/17 07:39 Myelocytes # 0.0 K/mm3 09/16/17 07:39 Promyelocytes # 0.0 K/mm3 09/16/17 07:39 Blast Cells # 0.0 K/mm3 09/16/17 07:39 WBC Morphology Not Reportable 09/16/17 07:39 Hypersegmented Neuts Not Reportable 09/16/17 07:39 Hyposegmented Neuts Not Reportable 09/16/17 07:39 Hypogranular Neuts Not Reportable 09/16/17 07:39 Smudge Cells Not Reportable 09/16/17 07:39 Toxic Granulation Not Reportable 09/16/17 07:39 Toxic Vacuolation Not Reportable 09/16/17 07:39 Dohle Bodies Not Reportable 09/16/17 07:39 Pelger-Huet Anomaly Not Reportable 09/16/17 07:39 Diaz Rods Not Reportable 09/16/17 07:39 Platelet Estimate Consistent w auto 09/16/17 07:39 Clumped Platelets Not Reportable 09/16/17 07:39 Plt Clumps, EDTA Not Reportable 09/16/17 07:39 Large Platelets Not Reportable 09/16/17 07:39 Giant Platelets Not Reportable 09/16/17 07:39 Platelet Satelliting Not Reportable 09/16/17 07:39 Plt Morphology Comment Not Reportable 09/16/17 07:39 RBC Morphology Normal 09/16/17 07:39 Dimorphic RBCs Not Reportable 09/16/17 07:39 Polychromasia Not Reportable 09/16/17 07:39 Hypochromasia Not Reportable 09/16/17 07:39 Poikilocytosis Not Reportable 09/16/17 07:39 Anisocytosis Not Reportable 09/16/17 07:39 Microcytosis Not Reportable 09/16/17 07:39 Macrocytosis Not Reportable 09/16/17 07:39 Spherocytes Not Reportable 09/16/17 07:39 Pappenheimer Bodies Not Reportable 09/16/17 07:39 Sickle Cells Not Reportable 09/16/17 07:39 Target Cells Not Reportable 09/16/17 07:39 Tear Drop Cells Not Reportable 09/16/17 07:39 Ovalocytes Not Reportable 09/16/17 07:39 Helmet Cells Not Reportable 09/16/17 07:39 Guzmán-Haysi Bodies Not Reportable 09/16/17 07:39 Sparkman Rings Not Reportable 09/16/17 07:39 Daniela Cells Not Reportable 09/16/17 07:39 Bite Cells Not Reportable 09/16/17 07:39 Crenated Cell Not Reportable 09/16/17 07:39 Elliptocytes Not Reportable 09/16/17 07:39 Acanthocytes (Spur) Not Reportable 09/16/17 07:39 Rouleaux Not Reportable 09/16/17 07:39 Hemoglobin C Crystals Not Reportable 09/16/17 07:39 Schistocytes Not Reportable 09/16/17 07:39 Malaria parasites Not Reportable 09/16/17 07:39 Dash Bodies Not Reportable 09/16/17 07:39 Hem Pathologist Commnt No 09/16/17 07:39 PT 12.6 Sec. (12.2-14.9) 09/10/17 21:03 INR 0.90 (0.87-1.13) 09/10/17 21:03 APTT 67.9 Sec. (24.2-36.6) H* 09/10/17 21:03 D-Dimer 565.03 ng/mlDDU (0-234) H 09/10/17 21:03 POC ABG pH 7.397 (7.35-7.45) 09/12/17 11:08 POC ABG pCO2 37.9 (35-45) 09/12/17 11:08 POC ABG pO2 86 (80-105) 09/12/17 11:08 POC ABG HCO3 23.3 09/12/17 11:08 POC ABG Total CO2 24 09/12/17 11:08 POC ABG O2 Sat 97 09/12/17 11:08 POC ABG Base Excess -2 09/12/17 11:08 FiO2 50 % 09/12/17 11:08 Sodium 133 mmol/L (137-145) L 09/16/17 04:00 Potassium 5.8 mmol/L (3.6-5.0) H 09/16/17 04:00 Chloride 97.1 mmol/L (98-107) L 09/16/17 04:00 Carbon Dioxide 26 mmol/L (22-30) 09/16/17 04:00 Anion Gap 16 mmol/L 09/16/17 04:00 BUN 19 mg/dL (9-20) 09/16/17 04:00 Creatinine 0.5 mg/dL (0.8-1.5) L 09/16/17 04:00 Estimated GFR > 60 ml/min 09/16/17 04:00 BUN/Creatinine Ratio 38 % 09/16/17 04:00 Glucose 196 mg/dL (75-100) H 09/16/17 04:00 POC Glucose 156 (70-105) H 09/16/17 08:16 Osmolality 293 Mosm/kg 09/13/17 14:37 Lactic Acid 3.50 mmol/L (0.7-2.0) H* 09/14/17 20:50 Calcium 7.1 mg/dL (8.4-10.2) L 09/16/17 04:00 Phosphorus 2.00 mg/dL (2.5-4.5) L 09/16/17 04:00 Total Bilirubin 0.40 mg/dL (0.1-1.2) 09/10/17 21:03 AST 110 units/L (5-40) H 09/10/17 21:03 ALT 49 units/L (7-56) 09/10/17 21:03 Alkaline Phosphatase 82 units/L (35-129) 09/10/17 21:03 Troponin T 0.023 ng/mL (0.00-0.029) 09/11/17 02:19 C-Reactive Protein 1.90 mg/dL (0.00-1.30) H 09/14/17 20:50 NT-Pro-B Natriuret Pep 1039 pg/mL (0-450) H 09/10/17 21:03 Total Protein 5.4 g/dL (6.3-8.2) L 09/10/17 21:03 Albumin 2.6 g/dL (3.9-5) L 09/10/17 21:03 Albumin/Globulin Ratio 0.9 % 09/10/17 21:03 Urine Osmolality 597 Mosm/kg 09/16/17 07:00 Urine Creatinine 50.0 mg/dL (0.1-20.0) H 09/16/17 07:00 Urine Sodium 46 mmol/L 09/16/17 07:00 Urine Chloride 20.4 mmolL (110-250) L 09/16/17 07:00 Urine Urea Nitrogen 734 09/16/17 07:00
--- NOTE | 2017-09-17 17:34 | Discharge Summary ---
Providers - Providers Date of Admission: 09/11/17 05:10 Attending physician: JACLYN SALAZAR MD 09/11/17 15:19 Consult to Physician [CONS] Routine Consulting Provider: CELI REYES Reason For Exam: respiratory failure Place consult to:: Dr. Reyes Notified:: Merritt RN Phone number called:: Was contact made?: Yes If yes, spoke with:: Gracie-office Time called:: 16:42 09/11/17 21:58 Consult to Physician [CONS] Urgent Consulting Provider: NADIA SO Reason For Exam: resp failure Place consult to:: Dr. So Notified:: Dr. So Phone number called:: [phone] Was contact made?: Yes If yes, spoke with:: Dr. So Time called:: 01:37 Comment:: See notification critical values. 09/12/17 12:01 Consult to Physician [CONS] Routine Consulting Provider: GEORGE WU Reason For Exam: Hyponatremia Place consult to:: Cell phone Dr. George Wu message service Notified:: left message Phone number called:: [phone] Was contact made?: No If yes, spoke with:: left message Time called:: 19:55 Comment:: See NN/ info contact per maria de jesus in ED 09/14/17 19:17 Consult to Physician [CONS] Routine Consulting Provider: TANYA JAMES Reason For Exam: chf Place consult to:: Dr. James Notified:: yes Phone number called:: [phone] Was contact made?: Yes If yes, spoke with:: Monica Time called:: 11:28 09/15/17 17:12 Consult to Mental Health [CONS] Urgent Reason For Exam: psych management Place consult to:: ellen Notified:: yes Phone number called:: [phone] Was contact made?: Yes If yes, spoke with:: Ellen Time called:: 17:22 Primary care physician: KAZ WALTER Hospitalization Condition: Serious Hospital course: This is a 42-year-old man with a history of hypertension, diabetes, CHF, emergency room with complaints of cough, nonproductive, shortness of breath and decreased energy with generalized weakness since Thursday. Patient was hypoxic in the emergency room and placed on BiPAP. The patient was being treated with BiPAP and high flow oxygen and he was alternated between the 2. He received antibiotics for pneumonia, blood pressure medication optimized. 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 For which he was treated with water restriction, and was being, managed by nephrology. He was also found to have CHF with very low EF, and he received cardiology consultation, and was in process of his workup. The patient was improving but was still oxygen dependent, still requiring high flow oxygen. When he got very upset and sign out AGAINST MEDICAL ADVICE stating that he was bedtime when her to leave the hospital. Diagnoses acute hypoxic Respiratory failure Sepsis Bilateral pneumonia, likely due to gram positive Hypertension Diabetes, type 2 hyponatremia Severe systolic CHF Thrombocytopenia, mild Disposition: DC-07 LEFT AGAINST MED ADVICE Time spent for discharge: 33 minutes Core Measure Documentation - Palliative Care Palliative Care/ Comfort Measures: Not Applicable - Core Measures Any of the following diagnoses?: heart failure - Heart Failure Discharge Requirements JOSHUA/ARB for LVSD if EF <40%: No Reason for no JOSHUA/ARB: Patient refusal Beta harsha at discharge: No Reason for no beta harsha on DC: Patient refusal Exam - Physical Exam Narrative exam: Patient signed out AMA, he was not examined at time of this documentation - Constitutional Vitals: Temp Pulse Resp BP Pulse Ox 98.2 F 129 H 23 135/93 87 09/16/17 08:00 09/16/17 10:30 09/16/17 10:30 09/16/17 10:30 09/16/17 10:21 Plan Follow up with: KAZ WALTER MD [Primary Care Provider] - 3-5 Days
== END 2017-09-16 11:14 | disposition left against medical advice (07) | DRG 871 ==
LOC: ED 20:13 → 4A 09-11 05:10 → CC1 09-11 23:58
PROVIDERS: ADMIT Internal Medicine; ATTEND Internal Medicine
PROC: 4A033R1 Measurement of Arterial Saturation, Peripheral, Percutaneous Approach (ICD-10-PCS; principal; 2017-09-11)
PROC: 5A09357 Assistance with Respiratory Ventilation, Less than 24 Consecutive Hours, Continuous Positive Airway Pressure (ICD-10-PCS; 2017-09-12)
PROC: 5A09357 Assistance with Respiratory Ventilation, Less than 24 Consecutive Hours, Continuous Positive Airway Pressure (ICD-10-PCS; 2017-09-13)
PROC: 5A09357 Assistance with Respiratory Ventilation, Less than 24 Consecutive Hours, Continuous Positive Airway Pressure (ICD-10-PCS; 2017-09-14)
DX: A41.9 Sepsis, unspecified organism (principal); J96.01 Acute respiratory failure with hypoxia; G93.40 Encephalopathy, unspecified; I50.21 Acute systolic (congestive) heart failure; J15.9 Unspecified bacterial pneumonia; I42.0 Dilated cardiomyopathy; E22.2 Syndrome of inappropriate secretion of antidiuretic hormone; I11.0 Hypertensive heart disease with heart failure; Z53.21 Procedure and treatment not carried out due to patient leaving prior to being seen by health care provider; E11.65 Type 2 diabetes mellitus with hyperglycemia; D69.6 Thrombocytopenia, unspecified; F17.210 Nicotine dependence, cigarettes, uncomplicated; E66.01 Morbid (severe) obesity due to excess calories; D75.1 Secondary polycythemia; D72.819 Decreased white blood cell count, unspecified; I27.20 Pulmonary hypertension, unspecified; R41.0 Disorientation, unspecified; Z68.30 Body mass index [BMI] 30.0-30.9, adult; Z82.49 Family history of ischemic heart disease and other diseases of the circulatory system; Z83.3 Family history of diabetes mellitus; Z79.4 Long term (current) use of insulin
CPT/HCPCS: 36415; 36600; 71045; 71275; 80048; 80053; 82140; 82436; 82570; 82803; 82962; 83880; 83930; 83935; 84100; 84300; 84484; 84520; 85007; 85025; 85379; 85610; 85730; 86140; 87040; 87400; 93005; 93010; 93306; 93970; 94640; 94660; 94760; 96365; 96375; 99406; C9113; J0696; J1630; J1650; J1815; J1818; J1940; J1956; J2260; J2920; J7030; J7050; Q9967

== ENCOUNTER 2017-09-22 18:24 | Inpatient (IN) | payer OTHER ==
--- NOTE | 2017-09-22 20:47 | XRay Report ---
FINAL REPORT EXAM: XR CHEST ROUTINE 2V HISTORY: shortness of breath TECHNIQUE: Frontal and lateral chest x-ray. PRIORS: 14 September 2017. FINDINGS: Mild cardiomegaly stable. Lungs again show patchy, but diffuse and partially confluent opacities scattered bilaterally, with lower lobe predominance about the same. No significant pleural effusions or apparent pneumothorax. Bony thorax grossly unremarkable. IMPRESSION: 1. Diffuse and partially confluent, parenchymal opacities scattered in bilateral lungs may represent acute inflammatory process or pneumonitis of uncertain etiology, but similar to comparison. Clinical correlation and followup to resolution advised.
[2017-09-22] MEDS ORDERED: LASIX IV ONE (20:50)
[2017-09-22] MEDS ORDERED: NITRO-BID 2% TP ONE (20:51)
--- NOTE | 2017-09-22 20:53 | Emergency Department Report ---
ED Shortness of Breath HPI - General Chief Complaint: Dyspnea/Respdistress Stated Complaint: FLU LIKE SYMPTOMS/ROBERT/PNEUMONIA Time Seen by Provider: 09/22/17 20:40 Source: patient Mode of arrival: Wheelchair Limitations: No Limitations - History of Present Illness Initial Comments: Mr. Martinez is a 42-year-old male here with a complaint of acute dyspnea and respiratory distress. Patient was hospitalized in early part of September until September 16 when he left AMA with a diagnosis of pneumonia.. He returns today with the complaint that he is more and more short of breath and now has a nonproductive cough. He attempted to go back to work but was not able to breathe sufficiently to work. She has a history of congestive heart failure diabetes and hypertension. No history of [place] in the past. He has a surgical history of hernia repair. His current vitals are saturation of 93% on 4 L of oxygen heart rate is 109 and blood pressure is 142/100 . Patient ,though he's on oxygen, seems a little bit dyspneic. MD Complaint: shortness of breath, cough -: Gradual, week(s) (weeks) Known History Of: congestive heart failure, diabetes, recurrent pnemonia Context: recent URI Associated Symptoms: cough, lower extremity pain (bottom of his feet hurts) - Related Data Home Medications Medication Instructions Recorded Confirmed Last Taken Acetaminophen/Dp-Hydramine 1 each PO PRN 09/12/17 09/22/17 09/11/17 06:00 [Jayden's Pm Powder Packet] 1 Carvedilol [Coreg] 25 mg PO DAILY 09/13/17 09/22/17 09/08/17 21:00 25 Insulin Aspart Protam & Aspart 0 units SQ QAM 09/13/17 09/22/17 09/07/17 08:00 [NovoLOG Mix 70-30 Flexpen] Levemir 20 units SUB-Q HS 09/13/17 09/22/17 09/07/17 22:00 Lisinopril [Zestril] 40 mg PO HS 09/13/17 09/22/17 09/08/17 21:00 amLODIPine [Norvasc] 10 mg PO DAILY 09/13/17 09/22/17 09/08/17 21:00 Previous Rx's Medication Instructions Recorded Last Taken Type Furosemide [Lasix] 20 mg PO QDAY #60 tablet 03/09/16 09/11/17 17:50 Rx 20 mg Allergies Allergy/AdvReac Type Severity Reaction Status Date / Time No Known Allergies Allergy Verified 09/22/17 18:50 ED Review of Systems ROS: Stated complaint: FLU LIKE SYMPTOMS/ROBERT/PNEUMONIA Other details as noted in HPI Constitutional: denies: chills, fever Eyes: denies: eye pain, eye discharge, vision change ENT: denies: ear pain, throat pain Respiratory: cough. denies: wheezing Cardiovascular: denies: chest pain, palpitations Endocrine: no symptoms reported Gastrointestinal: denies: abdominal pain, nausea, diarrhea Genitourinary: denies: urgency, dysuria Musculoskeletal: denies: back pain, joint swelling, arthralgia Skin: denies: rash, lesions Neurological: paresthesias (bottom of the feet hurt). denies: headache, weakness Psychiatric: denies: anxiety, depression Hematological/Lymphatic: denies: easy bleeding, easy bruising ED Past Medical Hx - Past Medical History Previous Medical History?: Yes Hx Hypertension: Yes Hx Congestive Heart Failure: Yes Hx Diabetes: Yes - Surgical History Past Surgical History?: Yes Additional Surgical History: hernia repair - Family History Family history: hypertension - Social History Smoking Status: Former Smoker Substance Use Type: None - Medications Home Medications: Home Medications Medication Instructions Recorded Confirmed Last Taken Type Furosemide [Lasix] 20 mg PO QDAY #60 tablet 03/09/16 09/22/17 09/11/17 17:50 Rx 20 mg Acetaminophen/Dp-Hydramine 1 each PO PRN 09/12/17 09/22/17 09/11/17 06:00 History [Jayden's Pm Powder Packet] 1 Carvedilol [Coreg] 25 mg PO DAILY 09/13/17 09/22/17 09/08/17 21:00 History 25 Insulin Aspart Protam & Aspart 0 units SQ QAM 09/13/17 09/22/17 09/07/17 08:00 History [NovoLOG Mix 70-30 Flexpen] Levemir 20 units SUB-Q HS 09/13/17 09/22/17 09/07/17 22:00 History Lisinopril [Zestril] 40 mg PO HS 09/13/17 09/22/17 09/08/17 21:00 History amLODIPine [Norvasc] 10 mg PO DAILY 09/13/17 09/22/17 09/08/17 21:00 History ED Physical Exam - General Limitations: No Limitations General appearance: alert, in distress - Head Head exam: Present: atraumatic, normocephalic - Eye Eye exam: Present: normal appearance, EOMI - ENT ENT exam: Present: mucous membranes moist - Neck Neck exam: Present: normal inspection, full ROM - Respiratory Respiratory exam: Present: normal lung sounds bilaterally, respiratory distress , rales (basilar bibasilar) - Cardiovascular Cardiovascular Exam: Present: normal rhythm, tachycardia, normal heart sounds. Absent: systolic murmur, diastolic murmur, rubs, gallop - GI/Abdominal GI/Abdominal exam: Present: soft, normal bowel sounds. Absent: distended, tenderness, guarding, rebound - Rectal Rectal exam: Present: deferred - Extremities Exam Extremities exam: Present: normal inspection, full ROM, pedal edema (at the ankles) - Back Exam Back exam: Present: normal inspection, full ROM - Neurological Exam Neurological exam: Present: alert, oriented X3, CN II-XII intact - Psychiatric Psychiatric exam: Present: normal affect, normal mood - Skin Skin exam: Present: warm, dry, intact, normal color. Absent: rash ED Course Vital Signs 09/22/17 09/22/17 09/22/17 18:50 19:30 20:00 Temperature 99.1 F Pulse Rate 105 H 108 H 108 H Respiratory 20 22 27 H Rate Blood Pressure 143/103 150/104 140/97 O2 Sat by Pulse 93 94 93 Oximetry 09/22/17 09/22/17 09/22/17 20:30 21:00 21:30 Temperature Pulse Rate 110 H 112 H 111 H Respiratory 24 31 H 25 H Rate Blood Pressure 140/95 146/95 120/76 O2 Sat by Pulse 95 94 87 Oximetry 09/22/17 09/22/17 22:00 22:29 Temperature 99.2 F Pulse Rate 113 H Respiratory 19 Rate Blood Pressure 107/64 O2 Sat by Pulse Oximetry - Reevaluation(s) Reevaluation #1: 09/22/17 22:59 Dr. Gt Mcnamara from [id number] was paged. The case was reviewed with him and he is determined that the patient should remain at this facility. All of their affiliated hospitals are full. ED Medical Decision Making - Lab Data Result diagrams: 09/22/17 21:30 - EKG Data -: EKG Interpreted by Me EKG shows normal: axis, intervals, QRS complexes Rate: tachycardia - EKG Data Interpretation: LVH (strain), other (left axis deviation,) - Radiology Data Radiology results: report reviewed (chest x-ray: Diffuse and partially confluent , parenchymal opacities scattered in bilateral lungs. This could be acute inflammatory process or pneumonitis of uncertain etiology. CTA of the chest: Extensive bilateral pneumonia which has worsened since previous study. Superimposed pulmonary vascular congestion with interstitial edema and bilateral small effusions. Stable mildly enlarged hilar and subcarinal lymphadenopathy lymph nodes with borderline in size lymph nodes in precarinal space and prevascular space in the mediastinum) Critical care attestation.: If time is entered above; I have spent that time in minutes in the direct care of this critically ill patient, excluding procedure time. ED Disposition Clinical Impression: Acute dyspnea, Uncontrolled hypertension, Bilateral pleural effusion, Low grade fever Acute congestive heart failure Qualifiers: Congestive heart failure type: unspecified Qualified Code(s): I50.9 - Heart failure, unspecified Bilateral pneumonia Qualifiers: Pneumonia type: due to unspecified organism Lung location: unspecified part of lung Qualified Code(s): J18.9 - Pneumonia, unspecified organism Disposition: DC-09 OP ADMIT IP TO THIS HOSP Is pt being admited?: Yes Does the pt Need Aspirin: No Condition: Serious Referrals: PRIMARY CARE, [Primary Care Provider] - 3-5 Days Time of Disposition: 22:40 (Dr. Fong was paged. The case was reviewed and she has admitted the patient to the hospital)
[2017-09-22 21:37] LABS: Basophils # (Auto) 0.1 K/mm3 (0.0-0.1); Basophils % (Auto) 0.7 % (0.0-1.8); Eosinophils # (Auto) 0.1 K/mm3 (0.0-0.4); Eosinophils % (Auto) 0.7 % (0.0-4.3); Hematocrit 42.7 % (35.5-45.6); Hemoglobin 14.4 gm/dl (11.8-15.2); Lymphocytes # (Auto) 1.6 K/mm3 (1.2-5.4); Mean Corpuscular HGB Conc 34 % (32-34); Mean Corpuscular Hemoglobin 29 pg (28-32); Mean Corpuscular Volume 85 fl (84-94); Monocytes # (Auto) 0.9 K/mm3 (0.0-0.8); Monocytes % (Auto) 9.6 % (0.0-7.3); Platelet Count 275 K/mm3 (140-440); Red Blood Count 5.02 M/mm3 (3.65-5.03); Red Cell Distribution Width 15.3 % (13.2-15.2)
[2017-09-22 21:58] LABS: Creatine Kinase MB 1.7 ng/mL (0.0-4.0)
[2017-09-22] MEDS ORDERED: ZOFRAN IV PRN (22:07)
[2017-09-22] MEDS ORDERED: MILK OF MAGNESIA PO PRN (22:07)
[2017-09-22] MEDS ORDERED: DULCOLAX PR PRN (22:07)
[2017-09-22 22:14] LABS: Chol/HDL Ratio 9.03 %
--- NOTE | 2017-09-22 22:29 | History and Physical Report ---
History of Present Illness Date of examination: 09/22/17 History of present illness: This is a 42-year-old man with a history of hypertension, diabetes, CHF was discharged from the hospital on September 16 where was treated for pneumonia. State he continues to have shortness of breath, generalized weakness. He has been home over the last 4 days, unable to do much of his ADLs. He complained of blurred vision and the at the stop several times during the interview, he is slow to respond to some questions. Old records reviewed Review Of Systems: Constitutional: no weight loss Ears, eyes, nose, mouth and throat: no nasal congestion, no nasal discharge, no sinus pressure, blurry vision, diplopia Neck: No neck pain or rigidity. Cardiovascular: No chest pain, palpitations Respiratory:+shortness of breath, cough Gastrointestinal: No abdominal pain, hematochezia Genitourinary : no dysuria, frequency , hematuria Musculoskeletal: no muscle ache Integumentary: no rash, no pruritis Neurological: no parathesias, focal weakness Endocrine: no cold or heat intolerance, no polyuria or polydipsia Hematologic/Lymphatic: no easy bruising, no easy bleeding, no gland swelling Allergic/Immunologic: no urticaria, no angioedema. PAST MEDICAL HISTORY:hypertension, diabetes, CHF, PAST SURGICAL HISTORY: Hernia repair FAMILY HISTORY: Hypertension, diabetes SOCIAL HISTORY: Admits to alcohol, tobacco, denies drugs Medications and Allergies Allergies Allergy/AdvReac Type Severity Reaction Status Date / Time No Known Allergies Allergy Verified 09/22/17 18:50 Home Medications Medication Instructions Recorded Confirmed Last Taken Type Aspirin [Aspirin BABY CHEW TAB] 81 mg PO QDAY #30 tab.chew 10/13/17 Unknown Rx Furosemide [Lasix TAB] 40 mg PO QDAY #30 tablet 10/13/17 Unknown Rx Insulin Detemir [Levemir] 20 units SUB-Q QHS #30 units 10/13/17 Unknown Rx Metoprolol [Lopressor TAB] 25 mg PO Q6H #120 tablet 10/13/17 Unknown Rx Pantoprazole [Protonix TAB] 40 mg PO QDAY #30 tablet 10/13/17 Unknown Rx Pravastatin [Pravachol] 40 mg PO QHS #30 tablet 10/13/17 Unknown Rx Zolpidem [Ambien] 5 mg PO QHS PRN #30 tablet 10/13/17 Unknown Rx hydrALAZINE [Apresoline TAB] 25 mg PO Q8HR #90 tablet 10/13/17 Unknown Rx Active Meds: Active Medications Acetaminophen (Tylenol) 650 mg PO Q4H PRN PRN Reason: Pain MILD(1-3)/Fever >100.5/[place] Bisacodyl (Dulcolax) 10 mg [place] QDAY PRN PRN Reason: Constipation unrelieved by MOM Enoxaparin Sodium (Lovenox) 30 mg SUB-Q QDAY [facility] Magnesium Hydroxide (Milk Of Magnesia) 30 ml PO Q4H PRN PRN Reason: Constipation Ondansetron HCl (Zofran) 4 mg IV Q8H PRN PRN Reason: N/V unrelieved by Reglan Exam - Physical Exam Narrative exam: Gen. appearance: Patient lying in bed in no acute distress HEENT: Normocephalic/atraumatic, pupils equal round reactive to light, extra occular movement intact, no scleral icterus, no JVD or thyromegaly or nodule, neck is supple, mucous membrane moist, no erythema or exudate Heart: S1-S2, regular rate and rhythm Lungs: Crackles bilateral breathing comfortable Abdomen: Positive bowel sounds, nontender, nondistended, no organomegaly Extremities: No edema, cyanosis, clubbing Neuro:: Oriented 3 , cranial nerves II-12 intact, speech, motor intact Skin: No rash, nodules, warm dry - Constitutional Vitals: Temp Pulse Resp BP Pulse Ox 99.1 F 108 H 27 H 140/97 93 09/22/17 18:50 09/22/17 20:00 09/22/17 20:00 09/22/17 20:00 09/22/17 20:00 Results - Labs CBC & Chem 7: 10/13/17 06:20 10/13/17 06:20 Labs: Abnormal lab results 09/22/17 09/22/17 09/22/17 Range/Units 21:30 21:31 21:31 RDW 15.3 H (13.2-15.2) % [place] % (Auto) 9.6 H (0.0-7.3) % [place] # 0.9 H (0.0-0.8) K/mm3 Seg Neutrophils % 72.0 H (40.0-70.0) % Total Creatine Kinase 371 H (55-170) units/L Troponin T 0.260 H* (0.00-0.029) ng/mL NT-Pro-B Natriuret Pep 5093 H (0-450) pg/mL Triglycerides 226 H (2-149) mg/dL Cholesterol 235 H (50-199) mg/dL LDL Cholesterol Direct 164 H (50-130) mg/dL HDL Cholesterol 26 L (40-59) mg/dL - Imaging and Cardiology EKG: image reviewed Chest x-ray: image reviewed Assessment and Plan Assessment Bilateral pneumonia blurry vision Abnormal cardiac enzymes Hypertension Diabetes CHF, stable Plan Admit to medicine Start IV Zosyn, follow cultures, consult pulmonary Obtain CAT scan of the head, do neuro checks Check cardiac enzymes, consult cardiology, recent echo was done Check fingersticks and initiate insulin sliding scale Continue Proventil, continue appropiate outpatient medications DVT prophylaxis
[2017-09-22] MEDS ORDERED: ZOSYN/NS 3.375GM/50ML 3.375 GM/50 ML BAG IV ONE (23:00)
--- NOTE | 2017-09-22 23:08 | Cat Scan Report ---
FINAL REPORT EXAM: CT HEAD/BRAIN WO CON HISTORY: difficult expressing himself TECHNIQUE: Noncontrast CT axial images of the brain. PRIORS: None. FINDINGS: No parenchymal mass, mass effect, hemorrhage, midline shift or hydrocephalus. No evidence of acute cortical infarct. No abnormal, extra-axial fluid or air collection. Focal encephalomalacia suggesting old ischemic change or infarct in the left occipital region. Possible prominent perivascular space or old lacune in the internal capsule anterior limb. Osseous calvarium grossly intact. IMPRESSION: 1. No acute intracranial findings. 2. Chronic ischemic changes suspected.
[2017-09-22 23:32] LABS: Creatine Kinase MB 1.5 ng/mL (0.0-4.0)
[2017-09-23 00:23] LABS: BUN/Creatinine Ratio 14; Blood Urea Nitrogen 10 mg/dL (9-20); Calcium 7.9 mg/dL (8.4-10.2); Hemolysis Index 11
[2017-09-23] MEDS ORDERED: D50W (25GM) Syringe IV PRN (00:24)
--- NOTE | 2017-09-23 01:13 | Cat Scan Report ---
FINAL REPORT EXAM: CT ANGIO CHEST HISTORY: short of breath TECHNIQUE: A CT angiogram was performed following the intravenous injection of 100 cc of Omnipaque 350. Sagittal and coronal MIP reconstructions were reviewed. Comparison is made to the study of 09/10/2017. FINDINGS: The lungs reveal diffuse infiltrates throughout both lungs which have progressed since the previous study. The lungs also appear congested. There are bilateral small effusions. The heart is mildly enlarged. There is a small pericardial effusion. There is no evidence of pulmonary embolus or aortic dissection. There is stable borderline sized lymph nodes in the prevascular space and precarinal space. There are mildly enlarged lymph nodes in the right hilum and subcarinal space also. In the upper abdomen there is a small hiatal hernia. The adrenal glands are not enlarged. The skeletal structures reveal mild disc degeneration in the thoracic spine. At the thoracic inlet the thyroid gland appears normal. IMPRESSION: No evidence of pulmonary embolus or aortic dissection. Extensive bilateral pneumonia which has worsened since previous study. Superimposed pulmonary vascular congestion with interstitial edema and bilateral small effusions noted as well. Stable mildly enlarged right hilar and subcarinal lymph nodes with borderline in size lymph nodes in the precarinal space and prevascular space in the mediastinum.
[2017-09-23] MEDS: ZOSYN/NS 3.375GM/50ML 3.375 GM/50 ML BAG IV SCH ×3 (06:33→23:02)
[2017-09-23 06:42] LABS: Basophils % (Auto) 0.4 % (0.0-1.8); Eosinophils % (Auto) 0.6 % (0.0-4.3); Hematocrit 38.5 % (35.5-45.6); Lymphocytes # (Auto) 1.3 K/mm3 (1.2-5.4); Mean Corpuscular HGB Conc 34 % (32-34); Mean Corpuscular Hemoglobin 29 pg (28-32); Mean Corpuscular Volume 85 fl (84-94); Monocytes # (Auto) 0.8 K/mm3 (0.0-0.8); Monocytes % (Auto) 11.9 % (0.0-7.3); Platelet Count 250 K/mm3 (140-440); Red Blood Count 4.51 M/mm3 (3.65-5.03); Red Cell Distribution Width 14.7 % (13.2-15.2)
[2017-09-23 06:43] LABS: Creatine Kinase MB 1.4 ng/mL (0.0-4.0)
[2017-09-23 06:44] LABS: BUN/Creatinine Ratio 14; Blood Urea Nitrogen 11 mg/dL (9-20); Calcium 7.7 mg/dL (8.4-10.2); Hemolysis Index 3
[2017-09-23] MEDS: NOVOLOG SUB-Q SCH ×4 (09:26→23:07)
--- NOTE | 2017-09-23 09:42 | Progress Note ---
Assessment and Plan Assessment and plan: This is a 42-year-old man with a history of hypertension, diabetes, CHF was left AMA from the hospital on September 16 where was treated for pneumonia. State he continues to have shortness of breath, generalized weakness. He has been home over the last 4 days, unable to do much of his ADLs. He complained of blurred vision and the at the stop several times during the interview, seem as if he is trying to find words to express himself. Bilateral pneumonia - Worsening bilateral infiltrates - On IV antibiotics - Pulmonary consult appreciated Cardiomyopathy - EF of 20-25% - continue with CHF medications - Cardiology consulted - Lexiscan stress test in the morning DVT prophylaxis - On lovenox History Interval history: Patient was seen and evaluated this morning, Complains blurring of vision, no chest pain. Hospitalist Physical - Physical exam Narrative exam: Not in cardiopulmonary distress. The patient appeared well nourished and normally developed. Vital signs as documented. Head exam is unremarkable. No scleral icterus . Neck is without jugular venous distension, thyromegaly, or carotid bruits. Lungs decrease airentry . Cardiac exam reveals regular rate and Rhythm. First and second heart sounds normal. No murmurs, rubs or gallops. Abdominal exam reveals normal bowel sounds, no masses, no organomegaly and no aortic enlargement. Extremities are nonedematous and both femoral and pedal pulses are normal. TRAINING FACILITATOR: Alert and oriented 3. No focal weakness. - Constitutional Vitals: Temp Pulse Resp BP Pulse Ox 97.6 F 100 H 17 124/79 97 09/23/17 08:43 09/23/17 06:33 09/23/17 08:43 09/23/17 08:43 09/23/17 08:28 Results - Labs CBC & Chem 7: 09/23/17 04:00 09/23/17 04:00 Labs: Laboratory Last Values WBC 6.4 K/mm3 (4.5-11.0) 09/23/17 04:00 RBC 4.51 M/mm3 (3.65-5.03) 09/23/17 04:00 Hgb 13.0 gm/dl (11.8-15.2) 09/23/17 04:00 Hct 38.5 % (35.5-45.6) 09/23/17 04:00 MCV 85 fl (84-94) 09/23/17 04:00 MCH 29 pg (28-32) 09/23/17 04:00 MCHC 34 % (32-34) 09/23/17 04:00 RDW 14.7 % (13.2-15.2) 09/23/17 04:00 Plt Count 250 K/mm3 (140-440) 09/23/17 04:00 Lymph % (Auto) 21.0 % (13.4-35.0) 09/23/17 04:00 [place] % (Auto) 11.9 % (0.0-7.3) H 09/23/17 04:00 Eos % (Auto) 0.6 % (0.0-4.3) 09/23/17 04:00 Baso % (Auto) 0.4 % (0.0-1.8) 09/23/17 04:00 Lymph # 1.3 K/mm3 (1.2-5.4) 09/23/17 04:00 [place] # 0.8 K/mm3 (0.0-0.8) 09/23/17 04:00 Eos # 0.0 K/mm3 (0.0-0.4) 09/23/17 04:00 Baso # 0.0 K/mm3 (0.0-0.1) 09/23/17 04:00 Seg Neutrophils % 66.1 % (40.0-70.0) 09/23/17 04:00 Seg Neutrophils # 4.2 K/mm3 (1.8-7.7) 09/23/17 04:00 Sodium 136 mmol/L (137-145) L D 09/23/17 04:00 Potassium 3.8 mmol/L (3.6-5.0) 09/23/17 04:00 Chloride 95.3 mmol/L (98-107) L 09/23/17 04:00 Carbon Dioxide 25 mmol/L (22-30) 09/23/17 04:00 Anion Gap 20 mmol/L 09/23/17 04:00 BUN 11 mg/dL (9-20) 09/23/17 04:00 Creatinine 0.8 mg/dL (0.8-1.5) 09/23/17 04:00 Estimated GFR > 60 ml/min 09/23/17 04:00 BUN/Creatinine Ratio 14 % 09/23/17 04:00 Glucose 181 mg/dL (75-100) H 09/23/17 04:00 POC Glucose 166 (70-105) H 09/23/17 09:09 Calcium 7.7 mg/dL (8.4-10.2) L 09/23/17 04:00 Total Creatine Kinase 170 units/L (55-170) 09/23/17 04:10 CK-MB (CK-2) 1.4 ng/mL (0.0-4.0) 09/23/17 04:10 CK-MB (CK-2) Rel Index 0.8 (0-4) 09/23/17 04:10 Troponin T 0.287 ng/mL (0.00-0.029) H* 09/23/17 04:10 NT-Pro-B Natriuret Pep 5093 pg/mL (0-450) H 09/22/17 21:31 Triglycerides 226 mg/dL (2-149) H 09/22/17 21:31 Cholesterol 235 mg/dL (50-199) H 09/22/17 21:31 LDL Cholesterol Direct 164 mg/dL (50-130) H 09/22/17 21:31 HDL Cholesterol 26 mg/dL (40-59) L 09/22/17 21:31 Cholesterol/HDL Ratio 9.03 % 09/22/17 21:31
[2017-09-23] MEDS: LOVENOX SUB-Q SCH (11:09)
[2017-09-23] MEDS: BABY ASPIRIN PO SCH (11:09)
[2017-09-23] MEDS: LASIX PO SCH (11:14)
[2017-09-23] MEDS: COREG PO SCH (11:15)
--- NOTE | 2017-09-23 13:28 | Consultation ---
History of Present Illness Consult date: 09/23/17 Consult reason: congestive heart failure History of present illness: 42 year old male returning to the hospital after leaving [place] with worsening shortness of breath. CT chest showing worsening pulmonary infiltrates and pulmonary edema. Patient is known to have underlying cardiomyopathy, LVEF 15-20 % with unclear past work-up performed in [place]. He denies chest pain. Past History Past Medical History: diabetes, heart failure, hypertension Past Surgical History: hernia repair Social history: smoking, alcohol abuse Family history: no significant family history Medications and Allergies Allergies Allergy/AdvReac Type Severity Reaction Status Date / Time No Known Allergies Allergy Verified 09/22/17 18:50 Home Medications Medication Instructions Recorded Confirmed Last Taken Type Furosemide [Lasix] 20 mg PO QDAY #60 tablet 03/09/16 09/22/17 09/11/17 17:50 Rx 20 mg Acetaminophen/Dp-Hydramine 1 each PO PRN 09/12/17 09/22/17 09/11/17 06:00 History [[facility]'s Pm Powder Packet] 1 Carvedilol [Coreg] 25 mg PO DAILY 09/13/17 09/22/17 09/08/17 21:00 History 25 Insulin Aspart Protam & Aspart 0 units SQ QAM 09/13/17 09/22/17 09/07/17 08:00 History [NovoLOG Mix 70-30 Flexpen] Levemir 20 units SUB-Q HS 09/13/17 09/22/17 09/07/17 22:00 History Lisinopril [Zestril] 40 mg PO HS 09/13/17 09/22/17 09/08/17 21:00 History amLODIPine [Norvasc] 10 mg PO DAILY 09/13/17 09/22/17 09/08/17 21:00 History Active Meds: Active Medications Acetaminophen (Tylenol) 650 mg PO Q4H PRN PRN Reason: Pain MILD(1-3)/Fever >100.5/[place] Aspirin (Baby Aspirin) 81 mg PO QDAY [facility] Last Admin: 09/23/17 11:09 Dose: 81 mg Bisacodyl (Dulcolax) 10 mg [place] QDAY PRN PRN Reason: Constipation unrelieved by MOM Carvedilol (Coreg) 25 mg PO DAILY [facility] Last Admin: 09/23/17 11:15 Dose: 25 mg Dextrose (D50w (25gm) Syringe) 50 ml IV PRN PRN PRN Reason: Hypoglycemia Enoxaparin Sodium (Lovenox) 40 mg SUB-Q QDAY [facility] Last Admin: 09/23/17 11:09 Dose: 40 mg Furosemide (Lasix) 20 mg PO QDAY [facility] Last Admin: 09/23/17 11:14 Dose: 20 mg Piperacillin Sod/Tazobactam Sod (Zosyn/Ns 3.375gm/50ml) 3.375 gm in 50 mls @ 100 mls/hr IV Q8HR [facility] PRN Reason: Protocol Last Admin: 09/23/17 06:33 Dose: 100 mls/hr Insulin Aspart (Novolog) 0 units SUB-Q ACHS [facility] PRN Reason: Protocol Last Admin: 09/23/17 09:26 Dose: 3 units Insulin Detemir (Levemir) 20 units SUB-Q QHS [facility] Lisinopril (Zestril) 40 mg PO HS [facility] Magnesium Hydroxide (Milk Of Magnesia) 30 ml PO Q4H PRN PRN Reason: Constipation Ondansetron HCl (Zofran) 4 mg IV Q8H PRN PRN Reason: N/V unrelieved by Reglan Review of Systems All systems: negative Physical Examination Vital Signs Temp Pulse Resp BP Pulse Ox 99.1 F 105 H 20 143/103 93 09/22/17 18:50 09/22/17 18:50 09/22/17 18:50 09/22/17 18:50 09/22/17 18:50 General appearance: no acute distress HEENT: Positive: PERRL Neck: Positive: JVD/HJR Cardiac: Positive: Reg Rate and Rhythm Lungs: Positive: Normal Exam Abdomen: Positive: Soft Extremities: Absent: edema Results 09/23/17 04:00 09/23/17 04:00 Cardiac Enzymes 09/22/17 09/22/17 09/22/17 Range/Units 21:30 21:31 21:31 WBC 9.5 (4.5-11.0) K/mm3 RBC 5.02 (3.65-5.03) M/mm3 Hgb 14.4 (11.8-15.2) gm/dl Hct 42.7 (35.5-45.6) % MCV 85 (84-94) fl MCH 29 (28-32) pg MCHC 34 (32-34) % RDW 15.3 H (13.2-15.2) % Plt Count 275 (140-440) K/mm3 Lymph % (Auto) 17.0 (13.4-35.0) % [place] % (Auto) 9.6 H (0.0-7.3) % Eos % (Auto) 0.7 (0.0-4.3) % Baso % (Auto) 0.7 (0.0-1.8) % Lymph # 1.6 (1.2-5.4) K/mm3 [place] # 0.9 H (0.0-0.8) K/mm3 Eos # 0.1 (0.0-0.4) K/mm3 Baso # 0.1 (0.0-0.1) K/mm3 Seg Neutrophils % 72.0 H (40.0-70.0) % Seg Neutrophils # 6.9 (1.8-7.7) K/mm3 Sodium (137-145) mmol/L Potassium (3.6-5.0) mmol/L Chloride (98-107) mmol/L Carbon Dioxide (22-30) mmol/L Anion Gap mmol/L BUN (9-20) mg/dL Creatinine (0.8-1.5) mg/dL Estimated GFR ml/min BUN/Creatinine Ratio % Glucose (75-100) mg/dL POC Glucose (70-105) Calcium (8.4-10.2) mg/dL Total Creatine Kinase 371 H (55-170) units/L CK-MB (CK-2) 1.7 (0.0-4.0) ng/mL CK-MB (CK-2) Rel Index 0.4 (0-4) Troponin T 0.260 H* (0.00-0.029) ng/mL NT-Pro-B Natriuret Pep 5093 H (0-450) pg/mL Triglycerides 226 H (2-149) mg/dL Cholesterol 235 H (50-199) mg/dL LDL Cholesterol Direct 164 H (50-130) mg/dL HDL Cholesterol 26 L (40-59) mg/dL Cholesterol/HDL Ratio 9.03 % 09/22/17 09/22/17 09/23/17 Range/Units 22:54 22:54 04:00 WBC 6.4 (4.5-11.0) K/mm3 RBC 4.51 (3.65-5.03) M/mm3 Hgb 13.0 (11.8-15.2) gm/dl Hct 38.5 (35.5-45.6) % MCV 85 (84-94) fl MCH 29 (28-32) pg MCHC 34 (32-34) % RDW 14.7 (13.2-15.2) % Plt Count 250 (140-440) K/mm3 Lymph % (Auto) 21.0 (13.4-35.0) % [place] % (Auto) 11.9 H (0.0-7.3) % Eos % (Auto) 0.6 (0.0-4.3) % Baso % (Auto) 0.4 (0.0-1.8) % Lymph # 1.3 (1.2-5.4) K/mm3 [place] # 0.8 (0.0-0.8) K/mm3 Eos # 0.0 (0.0-0.4) K/mm3 Baso # 0.0 (0.0-0.1) K/mm3 Seg Neutrophils % 66.1 (40.0-70.0) % Seg Neutrophils # 4.2 (1.8-7.7) K/mm3 Sodium 129 L (137-145) mmol/L Potassium 3.6 (3.6-5.0) mmol/L Chloride 91.6 L (98-107) mmol/L Carbon Dioxide 24 (22-30) mmol/L Anion Gap 17 mmol/L BUN 10 (9-20) mg/dL Creatinine 0.7 L (0.8-1.5) mg/dL Estimated GFR > 60 ml/min BUN/Creatinine Ratio 14 % Glucose 256 H (75-100) mg/dL POC Glucose (70-105) Calcium 7.9 L (8.4-10.2) mg/dL Total Creatine Kinase 211 H (55-170) units/L CK-MB (CK-2) 1.5 (0.0-4.0) ng/mL CK-MB (CK-2) Rel Index 0.7 (0-4) Troponin T 0.344 H* D (0.00-0.029) ng/mL NT-Pro-B Natriuret Pep (0-450) pg/mL Triglycerides (2-149) mg/dL Cholesterol (50-199) mg/dL LDL Cholesterol Direct (50-130) mg/dL HDL Cholesterol (40-59) mg/dL Cholesterol/HDL Ratio % 09/23/17 09/23/17 09/23/17 Range/Units 04:00 04:10 09:09 WBC (4.5-11.0) K/mm3 RBC (3.65-5.03) M/mm3 Hgb (11.8-15.2) gm/dl Hct (35.5-45.6) % MCV (84-94) fl MCH (28-32) pg MCHC (32-34) % RDW (13.2-15.2) % Plt Count (140-440) K/mm3 Lymph % (Auto) (13.4-35.0) % [place] % (Auto) (0.0-7.3) % Eos % (Auto) (0.0-4.3) % Baso % (Auto) (0.0-1.8) % Lymph # (1.2-5.4) K/mm3 [place] # (0.0-0.8) K/mm3 Eos # (0.0-0.4) K/mm3 Baso # (0.0-0.1) K/mm3 Seg Neutrophils % (40.0-70.0) % Seg Neutrophils # (1.8-7.7) K/mm3 Sodium 136 L D (137-145) mmol/L Potassium 3.8 (3.6-5.0) mmol/L Chloride 95.3 L (98-107) mmol/L Carbon Dioxide 25 (22-30) mmol/L Anion Gap 20 mmol/L BUN 11 (9-20) mg/dL Creatinine 0.8 (0.8-1.5) mg/dL Estimated GFR > 60 ml/min BUN/Creatinine Ratio 14 % Glucose 181 H (75-100) mg/dL POC Glucose 166 H (70-105) Calcium 7.7 L (8.4-10.2) mg/dL Total Creatine Kinase 170 (55-170) units/L CK-MB (CK-2) 1.4 (0.0-4.0) ng/mL CK-MB (CK-2) Rel Index 0.8 (0-4) Troponin T 0.287 H* (0.00-0.029) ng/mL NT-Pro-B Natriuret Pep (0-450) pg/mL Triglycerides (2-149) mg/dL Cholesterol (50-199) mg/dL LDL Cholesterol Direct (50-130) mg/dL HDL Cholesterol (40-59) mg/dL Cholesterol/HDL Ratio % // Range/Units 13:19 WBC (4.5-11.0) K/mm3 RBC (3.65-5.03) M/mm3 Hgb (11.8-15.2) gm/dl Hct (35.5-45.6) % MCV (84-94) fl MCH (28-32) pg MCHC (32-34) % RDW (13.2-15.2) % Plt Count (140-440) K/mm3 Lymph % (Auto) (13.4-35.0) % [place] % (Auto) (0.0-7.3) % Eos % (Auto) (0.0-4.3) % Baso % (Auto) (0.0-1.8) % Lymph # (1.2-5.4) K/mm3 [place] # (0.0-0.8) K/mm3 Eos # (0.0-0.4) K/mm3 Baso # (0.0-0.1) K/mm3 Seg Neutrophils % (40.0-70.0) % Seg Neutrophils # (1.8-7.7) K/mm3 Sodium (137-145) mmol/L Potassium (3.6-5.0) mmol/L Chloride (98-107) mmol/L Carbon Dioxide (22-30) mmol/L Anion Gap mmol/L BUN (9-20) mg/dL Creatinine (0.8-1.5) mg/dL Estimated GFR ml/min BUN/Creatinine Ratio % Glucose (75-100) mg/dL POC Glucose 267 H (70-105) Calcium (8.4-10.2) mg/dL Total Creatine Kinase (55-170) units/L CK-MB (CK-2) (0.0-4.0) ng/mL CK-MB (CK-2) Rel Index (0-4) Troponin T (0.00-0.029) ng/mL NT-Pro-B Natriuret Pep (0-450) pg/mL Triglycerides (2-149) mg/dL Cholesterol (50-199) mg/dL LDL Cholesterol Direct (50-130) mg/dL HDL Cholesterol (40-59) mg/dL Cholesterol/HDL Ratio % Lipids 09/22/17 Range/Units 21:31 Triglycerides 226 H (2-149) mg/dL Cholesterol 235 H (50-199) mg/dL HDL Cholesterol 26 L (40-59) mg/dL Cholesterol/HDL Ratio 9.03 % CBC 09/22/17 09/23/17 Range/Units 21:30 04:00 WBC 9.5 6.4 (4.5-11.0) K/mm3 RBC 5.02 4.51 (3.65-5.03) M/mm3 Hgb 14.4 13.0 (11.8-15.2) gm/dl Hct 42.7 38.5 (35.5-45.6) % Plt Count 275 250 (140-440) K/mm3 Lymph # 1.6 1.3 (1.2-5.4) K/mm3 [place] # 0.9 H 0.8 (0.0-0.8) K/mm3 Eos # 0.1 0.0 (0.0-0.4) K/mm3 Baso # 0.1 0.0 (0.0-0.1) K/mm3 Comprehensive Metabolic Panel 09/22/17 09/23/17 Range/Units 22:54 04:00 Sodium 129 L 136 L D (137-145) mmol/L Potassium 3.6 3.8 (3.6-5.0) mmol/L Chloride 91.6 L 95.3 L (98-107) mmol/L Carbon Dioxide 24 25 (22-30) mmol/L BUN 10 11 (9-20) mg/dL Creatinine 0.7 L 0.8 (0.8-1.5) mg/dL Glucose 256 H 181 H (75-100) mg/dL Calcium 7.9 L 7.7 L (8.4-10.2) mg/dL EKG interpretations - Telemetry EKG Rhythm: Sinus Rhythm Assessment and Plan Pneumonia Patient is clinically compensated Chronic systolic heart failure Cardiomyopathy, etiology unclear EF 10-15% on echocardiogram. Diabetes Hypertension Recommendations: Obtain a lexiscan in am Continue heart failure therapy Fluid and salt restriction advised
--- NOTE | 2017-09-23 13:47 | Consultation ---
History of Present Illness Consult date: 09/23/17 Requesting physician: JACLYN SALAZAR Reason for consult: hypoxemia History of present illness: This is a 42-year-old man with a history of hypertension, diabetes, CHF left AMA from the hospital on September 16 where was treated for pneumonia. State he continues to have shortness of breath, generalized weakness. He has been home over the last 4 days, unable to do much of his ADLs. CT chest showing worsening pulmonary infiltrates and pulmonary edema. Patient is known to have underlying cardiomyopathy, LVEF 15-20% with unclear past work-up performed in [place]. He denies chest pain. He is currently on supplemental oxygen at 3L/min. Review Of Systems: Constitutional: no weight loss Ears, eyes, nose, mouth and throat: no nasal congestion, no nasal discharge, no sinus pressure, blurry vision, diplopia Neck: No neck pain or rigidity. Cardiovascular: No chest pain, palpitations Respiratory:+shortness of breath, cough Gastrointestinal: No abdominal pain, hematochezia Genitourinary : no dysuria, frequency , hematuria Musculoskeletal: no muscle ache Integumentary: no rash, no pruritis Neurological: no parathesias, focal weakness Endocrine: no cold or heat intolerance, no polyuria or polydipsia Hematologic/Lymphatic: no easy bruising, no easy bleeding, no gland swelling Allergic/Immunologic: no urticaria, no angioedema. PAST MEDICAL HISTORY:hypertension, diabetes, CHF, PAST SURGICAL HISTORY: Hernia repair FAMILY HISTORY: Hypertension, diabetes SOCIAL HISTORY: Admits to alcohol, tobacco, denies drugs Past History Past Medical History: diabetes, heart failure, hypertension Past Surgical History: hernia repair Social history: smoking, alcohol abuse Family history: no significant family history Medications and Allergies Allergies Allergy/AdvReac Type Severity Reaction Status Date / Time No Known Allergies Allergy Verified 09/22/17 18:50 Home Medications Medication Instructions Recorded Confirmed Last Taken Type Furosemide [Lasix] 20 mg PO QDAY #60 tablet 03/09/16 09/22/17 09/11/17 17:50 Rx 20 mg Acetaminophen/Dp-Hydramine 1 each PO PRN 09/12/17 09/22/17 09/11/17 06:00 History [[facility]'s Pm Powder Packet] 1 Carvedilol [Coreg] 25 mg PO DAILY 09/13/17 09/22/17 09/08/17 21:00 History 25 Insulin Aspart Protam & Aspart 0 units SQ QAM 09/13/17 09/22/17 09/07/17 08:00 History [NovoLOG Mix 70-30 Flexpen] Levemir 20 units SUB-Q HS 09/13/17 09/22/17 09/07/17 22:00 History Lisinopril [Zestril] 40 mg PO HS 09/13/17 09/22/17 09/08/17 21:00 History amLODIPine [Norvasc] 10 mg PO DAILY 09/13/17 09/22/17 09/08/17 21:00 History Active Meds: Active Medications Acetaminophen (Tylenol) 650 mg PO Q4H PRN PRN Reason: Pain MILD(1-3)/Fever >100.5/[place] Aspirin (Baby Aspirin) 81 mg PO QDAY [facility] Last Admin: 09/23/17 11:09 Dose: 81 mg Bisacodyl (Dulcolax) 10 mg [place] QDAY PRN PRN Reason: Constipation unrelieved by MOM Carvedilol (Coreg) 25 mg PO DAILY [facility] Last Admin: 09/23/17 11:15 Dose: 25 mg Dextrose (D50w (25gm) Syringe) 50 ml IV PRN PRN PRN Reason: Hypoglycemia Enoxaparin Sodium (Lovenox) 40 mg SUB-Q QDAY [facility] Last Admin: 09/23/17 11:09 Dose: 40 mg Furosemide (Lasix) 20 mg PO QDAY [facility] Last Admin: 09/23/17 11:14 Dose: 20 mg Piperacillin Sod/Tazobactam Sod (Zosyn/Ns 3.375gm/50ml) 3.375 gm in 50 mls @ 100 mls/hr IV Q8HR [facility] PRN Reason: Protocol Last Admin: 09/23/17 06:33 Dose: 100 mls/hr Insulin Aspart (Novolog) 0 units SUB-Q ACHS [facility] PRN Reason: Protocol Last Admin: 09/23/17 09:26 Dose: 3 units Insulin Detemir (Levemir) 20 units SUB-Q QHS [facility] Lisinopril (Zestril) 40 mg PO HS [facility] Magnesium Hydroxide (Milk Of Magnesia) 30 ml PO Q4H PRN PRN Reason: Constipation Ondansetron HCl (Zofran) 4 mg IV Q8H PRN PRN Reason: N/V unrelieved by Reglan Physical Examination Vital signs: Vital Signs Temp Pulse Resp BP Pulse Ox 99.1 F 105 H 20 143/103 93 09/22/17 18:50 09/22/17 18:50 09/22/17 18:50 09/22/17 18:50 09/22/17 18:50 Results - Laboratory Findings CBC and BMP: 09/23/17 04:00 09/23/17 04:00 Abnormal lab findings: Abnormal Labs 09/22/17 09/22/17 09/22/17 21:30 21:31 21:31 RDW 15.3 H [place] % (Auto) 9.6 H [place] # 0.9 H Seg Neutrophils % 72.0 H Sodium Chloride Creatinine Glucose POC Glucose Calcium Total Creatine Kinase 371 H Troponin T 0.260 H* NT-Pro-B Natriuret Pep 5093 H Triglycerides 226 H Cholesterol 235 H LDL Cholesterol Direct 164 H HDL Cholesterol 26 L 09/22/17 09/22/17 09/23/17 22:54 22:54 04:00 RDW [place] % (Auto) 11.9 H [place] # Seg Neutrophils % Sodium 129 L Chloride 91.6 L Creatinine 0.7 L Glucose 256 H POC Glucose Calcium 7.9 L Total Creatine Kinase 211 H Troponin T 0.344 H* D NT-Pro-B Natriuret Pep Triglycerides Cholesterol LDL Cholesterol Direct HDL Cholesterol 09/23/17 09/23/17 09/23/17 04:00 04:10 09:09 RDW [place] % (Auto) [place] # Seg Neutrophils % Sodium 136 L D Chloride 95.3 L Creatinine Glucose 181 H POC Glucose 166 H Calcium 7.7 L Total Creatine Kinase Troponin T 0.287 H* NT-Pro-B Natriuret Pep Triglycerides Cholesterol LDL Cholesterol Direct HDL Cholesterol 09/23/17 13:19 RDW [place] % (Auto) [place] # Seg Neutrophils % Sodium Chloride Creatinine Glucose POC Glucose 267 H Calcium Total Creatine Kinase Troponin T NT-Pro-B Natriuret Pep Triglycerides Cholesterol LDL Cholesterol Direct HDL Cholesterol Assessment and Plan Acute hypoxemic respiratory failure Bilateral infiltrates Hyponatremia Diabetes, poorly controlled Morbid obesity Systolic heart failure, EF 15% Tobacco abuse disorder -Supplemental oxygen to keep O2 sats>90% -Heart failure measures, fluid restriction -VTE prophylaxis -ABG on room air - Smoking cessation counselling -Nicotine withdrawal precautions -Outpatient sleep study
[2017-09-23] MEDS ORDERED: VANCOMYCIN 2,000 MG in NACL 0.9% 500 ML 500 ML IV ONE (19:00)
[2017-09-23] MEDS ORDERED: VANCOMYCIN PHARMACY TO DOSE IV SCH (19:00)
[2017-09-23] MEDS ORDERED: LEVEMIR 20 UNIT SUB-Q SCH (22:00)
[2017-09-23] MEDS: ZESTRIL PO SCH (23:01)
[2017-09-23] MEDS: LEVEMIR SUB-Q SCH (23:07)
[2017-09-24 06:23] LABS: Basophils % (Auto) 0.5 % (0.0-1.8); Eosinophils % (Auto) 0.6 % (0.0-4.3); Hematocrit 38.7 % (35.5-45.6); Hemoglobin 12.9 gm/dl (11.8-15.2); Lymphocytes # (Auto) 1.3 K/mm3 (1.2-5.4); Lymphocytes % (Auto) 21.5 % (13.4-35.0); Mean Corpuscular HGB Conc 33 % (32-34); Mean Corpuscular Hemoglobin 29 pg (28-32); Mean Corpuscular Volume 86 fl (84-94); Monocytes # (Auto) 0.7 K/mm3 (0.0-0.8); Monocytes % (Auto) 11.4 % (0.0-7.3); Platelet Count 283 K/mm3 (140-440); Red Blood Count 4.48 M/mm3 (3.65-5.03); Red Cell Distribution Width 14.8 % (13.2-15.2)
[2017-09-24] MEDS: ZOSYN/NS 3.375GM/50ML 3.375 GM/50 ML BAG IV SCH ×3 (06:24→21:33)
[2017-09-24 06:35] LABS: BUN/Creatinine Ratio 14; Blood Urea Nitrogen 10 mg/dL (9-20); Calcium 7.8 mg/dL (8.4-10.2); Hemolysis Index 34
[2017-09-24] MEDS: NOVOLOG SUB-Q SCH ×4 (09:15→22:14)
[2017-09-24] MEDS: LOVENOX SUB-Q SCH (11:14)
[2017-09-24] MEDS: VANCOMYCIN 1,500 MG in NACL 0.9% 500 ML 500 ML IV SCH ×2 (11:14→21:15)
[2017-09-24] MEDS: COREG PO SCH (11:14)
[2017-09-24] MEDS: BABY ASPIRIN PO SCH (11:14)
[2017-09-24] MEDS: LASIX PO SCH (11:14)
--- NOTE | 2017-09-24 15:44 | Progress Note ---
Assessment and Plan - Patient Problems (1) Acute congestive heart failure Current Visit: Yes Status: Acute Qualifiers: Congestive heart failure type: unspecified Qualified Code(s): I50.9 - Heart failure, unspecified Plan to address problem: Patient presented with acute on chronic systolic heart failure and pulmonary edema. Continue aggressive heart failure therapy. When heart failure resolves , we will proceed with ischemic cardiac workup. Subjective Date of service: 09/24/17 Interval history: Thallium stress test was deferred today, due to still decompensated heart failure. Objective Vital Signs Temp Pulse Resp BP BP Pulse Ox 09/24/17 10:33 98.3 F 109 H 16 154/105 90 09/24/17 04:35 98.2 F 103 H 20 128/97 88 09/24/17 03:39 109 H 09/24/17 00:14 98.9 F 109 H 20 111/72 86 09/23/17 23:01 107 H 127/95 09/23/17 19:52 98.9 F 107 H 20 127/95 92 09/23/17 16:19 98.0 F 98 H 18 123/86 97 - Physical Examination General: No Apparent Distress HEENT: Positive: PERRL Neck: Positive: JVD/HJR Cardiac: Positive: Reg Rate and Rhythm Lungs: Positive: Decreased Breath Sounds Neuro: Positive: Grossly Intact Abdomen: Positive: Soft Skin: Positive: Clear Extremities: Absent: edema - Labs and Meds CBC 09/24/17 Range/Units 04:40 WBC 6.3 (4.5-11.0) K/mm3 RBC 4.48 (3.65-5.03) M/mm3 Hgb 12.9 (11.8-15.2) gm/dl Hct 38.7 (35.5-45.6) % Plt Count 283 (140-440) K/mm3 Lymph # 1.3 (1.2-5.4) K/mm3 [place] # 0.7 (0.0-0.8) K/mm3 Eos # 0.0 (0.0-0.4) K/mm3 Baso # 0.0 (0.0-0.1) K/mm3 Comprehensive Metabolic Panel 09/24/17 Range/Units 04:40 Sodium 133 L (137-145) mmol/L Potassium 3.8 (3.6-5.0) mmol/L Chloride 95.6 L (98-107) mmol/L Carbon Dioxide 25 (22-30) mmol/L BUN 10 (9-20) mg/dL Creatinine 0.7 L (0.8-1.5) mg/dL Glucose 251 H (75-100) mg/dL Calcium 7.8 L (8.4-10.2) mg/dL - Imaging and Cardiology EKG: image reviewed
--- NOTE | 2017-09-24 15:50 | Progress Note ---
Assessment and Plan Assessment and plan: This is a 42-year-old man with a history of hypertension, diabetes, CHF was left AMA from the hospital on September 16 where was treated for pneumonia. State he continues to have shortness of breath, generalized weakness. He has been home over the last 4 days, unable to do much of his ADLs. He complained of blurred vision and the at the stop several times during the interview, seem as if he is trying to find words to express himself. Bilateral pneumonia - Worsening bilateral infiltrates - On IV antibiotics - Pulmonary consult appreciated Cardiomyopathy - EF of 10-15%, systolic dysfunction - continue with CHF medications - Cardiology consulted - Lexiscan stress test to be done this morning but was not done. DVT prophylaxis - On lovenox History Interval history: Patient was seen and evaluated this morning, no chest pain, or SOB. Hospitalist Physical - Physical exam Narrative exam: Not in cardiopulmonary distress. The patient appeared well nourished and normally developed. Vital signs as documented. Head exam is unremarkable. No scleral icterus . Neck is without jugular venous distension, thyromegaly, or carotid bruits. Lungs decrease airentry . Cardiac exam reveals regular rate and Rhythm. First and second heart sounds normal. No murmurs, rubs or gallops. Abdominal exam reveals normal bowel sounds, no masses, no organomegaly and no aortic enlargement. Extremities are nonedematous and both femoral and pedal pulses are normal. 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 - Constitutional Vitals: Temp Pulse Resp BP Pulse Ox 98.3 F 109 H 16 154/105 90 09/24/17 10:33 09/24/17 10:33 09/24/17 10:33 09/24/17 10:33 09/24/17 10:33 General appearance: Present: no acute distress Results - Labs CBC & Chem 7: 09/24/17 04:40 09/24/17 04:40 Labs: Laboratory Last Values WBC 6.3 K/mm3 (4.5-11.0) 09/24/17 04:40 RBC 4.48 M/mm3 (3.65-5.03) 09/24/17 04:40 Hgb 12.9 gm/dl (11.8-15.2) 09/24/17 04:40 Hct 38.7 % (35.5-45.6) 09/24/17 04:40 MCV 86 fl (84-94) 09/24/17 04:40 MCH 29 pg (28-32) 09/24/17 04:40 MCHC 33 % (32-34) 09/24/17 04:40 RDW 14.8 % (13.2-15.2) 09/24/17 04:40 Plt Count 283 K/mm3 (140-440) 09/24/17 04:40 Lymph % (Auto) 21.5 % (13.4-35.0) 09/24/17 04:40 [place] % (Auto) 11.4 % (0.0-7.3) H 09/24/17 04:40 Eos % (Auto) 0.6 % (0.0-4.3) 09/24/17 04:40 Baso % (Auto) 0.5 % (0.0-1.8) 09/24/17 04:40 Lymph # 1.3 K/mm3 (1.2-5.4) 09/24/17 04:40 [place] # 0.7 K/mm3 (0.0-0.8) 09/24/17 04:40 Eos # 0.0 K/mm3 (0.0-0.4) 09/24/17 04:40 Baso # 0.0 K/mm3 (0.0-0.1) 09/24/17 04:40 Seg Neutrophils % 66.0 % (40.0-70.0) 09/24/17 04:40 Seg Neutrophils # 4.1 K/mm3 (1.8-7.7) 09/24/17 04:40 POC ABG pH 7.459 (7.35-7.45) H 09/23/17 15:04 POC ABG pCO2 34.8 (35-45) L 09/23/17 15:04 POC ABG pO2 54 (80-105) L 09/23/17 15:04 POC ABG HCO3 24.7 09/23/17 15:04 POC ABG Total CO2 26 09/23/17 15:04 POC ABG O2 Sat 89 09/23/17 15:04 POC ABG Base Excess 1 09/23/17 15:04 FiO2 21 % 09/23/17 15:04 Sodium 133 mmol/L (137-145) L 09/24/17 04:40 Potassium 3.8 mmol/L (3.6-5.0) 09/24/17 04:40 Chloride 95.6 mmol/L (98-107) L 09/24/17 04:40 Carbon Dioxide 25 mmol/L (22-30) 09/24/17 04:40 Anion Gap 16 mmol/L 09/24/17 04:40 BUN 10 mg/dL (9-20) 09/24/17 04:40 Creatinine 0.7 mg/dL (0.8-1.5) L 09/24/17 04:40 Estimated GFR > 60 ml/min 09/24/17 04:40 BUN/Creatinine Ratio 14 % 09/24/17 04:40 Glucose 251 mg/dL (75-100) H 09/24/17 04:40 POC Glucose 209 (70-105) H 09/24/17 12:17 Calcium 7.8 mg/dL (8.4-10.2) L 09/24/17 04:40 Total Creatine Kinase 170 units/L (55-170) 09/23/17 04:10 CK-MB (CK-2) 1.4 ng/mL (0.0-4.0) 09/23/17 04:10 CK-MB (CK-2) Rel Index 0.8 (0-4) 09/23/17 04:10 Troponin T 0.287 ng/mL (0.00-0.029) H* 09/23/17 04:10 NT-Pro-B Natriuret Pep 5093 pg/mL (0-450) H 09/22/17 21:31 Triglycerides 226 mg/dL (2-149) H 09/22/17 21:31 Cholesterol 235 mg/dL (50-199) H 09/22/17 21:31 LDL Cholesterol Direct 164 mg/dL (50-130) H 09/22/17 21:31 HDL Cholesterol 26 mg/dL (40-59) L 09/22/17 21:31 Cholesterol/HDL Ratio 9.03 % 09/22/17 21:31
--- NOTE | 2017-09-24 19:01 | Progress Note ---
Assessment and Plan Patient alert, awake. Complaining some shortness of breath. Patient not using his O2.O2 saturation 89%. Recommend O2 2 litres via nasal canula. BIPAP during night time. - Patient Problems (1) Bilateral pleural effusion Current Visit: Yes Status: Acute Plan to address problem: Obtaining Ultrasound of chest. (2) Bilateral pneumonia Current Visit: Yes Status: Acute Qualifiers: Pneumonia type: due to unspecified organism Lung location: unspecified part of lung Qualified Code(s): J18.9 - Pneumonia, unspecified organism Plan to address problem: Patient is on zosyn and vancomycin. (3) Acute congestive heart failure Current Visit: Yes Status: Acute Qualifiers: Congestive heart failure type: unspecified Qualified Code(s): I50.9 - Heart failure, unspecified Plan to address problem: Management as per primary care and cardiology. (4) Diabetes mellitus type 2, insulin dependent Current Visit: No Status: Acute Plan to address problem: Management as per primary care. (5) Obesity (BMI 30-39.9) Current Visit: No Status: Acute Plan to address problem: Recommend to loose weight. Diet and exercise. (6) Sleep apnea Current Visit: No Status: Acute Plan to address problem: BIPAP 20/02, rate 16, FIO2 30%. Subjective Date of service: 09/24/17 Interval history: Patient alert, awake. Complaining some shortness of breath. Patient not using his O2.O2 saturation 89%. Recommend O2 2 litres via nasal canula. BIPAP during night time. Objective Vital Signs - 12hr 09/24/17 09/24/17 10:33 16:09 Temperature 98.3 F 98.1 F Pulse Rate 109 H 110 H Respiratory 16 16 Rate Blood Pressure 115/80 Blood Pressure 154/105 [Left] O2 Sat by Pulse 90 89 Oximetry Constitutional: no acute distress, alert Eyes: non-icteric ENT: oropharynx moist Neck: supple, no lymphadenopathy Ascultation: Bilateral: diminished breath sounds Cardiovascular: regular rate and rhythm Gastrointestinal: normoactive bowel sounds, soft, non-tender Integumentary: normal Extremities: no cyanosis, no edema Neurologic: normal mental status, non-focal exam, pupils equal and round, CN II- XII normal Psychiatric: mood appropriate CBC and BMP: 09/24/17 04:40 09/24/17 04:40 ABG, PT/INR, D-dimer: ABG POC ABG pH 7.459 (7.35-7.45) H 09/23/17 15:04 POC ABG pCO2 34.8 (35-45) L 09/23/17 15:04 POC ABG pO2 54 (80-105) L 09/23/17 15:04 POC ABG HCO3 24.7 09/23/17 15:04 POC ABG Total CO2 26 09/23/17 15:04 POC ABG O2 Sat 89 09/23/17 15:04 Abnormal lab findings: Abnormal Labs 09/22/17 09/22/17 09/22/17 21:30 21:31 21:31 RDW 15.3 H [place] % (Auto) 9.6 H [place] # 0.9 H Seg Neutrophils % 72.0 H POC ABG pH POC ABG pCO2 POC ABG pO2 Sodium Chloride Creatinine Glucose POC Glucose Calcium Total Creatine Kinase 371 H Troponin T 0.260 H* NT-Pro-B Natriuret Pep 5093 H Triglycerides 226 H Cholesterol 235 H LDL Cholesterol Direct 164 H HDL Cholesterol 26 L 09/22/17 09/22/17 09/23/17 22:54 22:54 04:00 RDW [place] % (Auto) 11.9 H [place] # Seg Neutrophils % POC ABG pH POC ABG pCO2 POC ABG pO2 Sodium 129 L Chloride 91.6 L Creatinine 0.7 L Glucose 256 H POC Glucose Calcium 7.9 L Total Creatine Kinase 211 H Troponin T 0.344 H* D NT-Pro-B Natriuret Pep Triglycerides Cholesterol LDL Cholesterol Direct HDL Cholesterol 09/23/17 09/23/17 09/23/17 04:00 04:10 09:09 RDW [place] % (Auto) [place] # Seg Neutrophils % POC ABG pH POC ABG pCO2 POC ABG pO2 Sodium 136 L D Chloride 95.3 L Creatinine Glucose 181 H POC Glucose 166 H Calcium 7.7 L Total Creatine Kinase Troponin T 0.287 H* NT-Pro-B Natriuret Pep Triglycerides Cholesterol LDL Cholesterol Direct HDL Cholesterol 09/23/17 09/23/17 09/23/17 11:40 13:19 15:04 RDW [place] % (Auto) [place] # Seg Neutrophils % POC ABG pH 7.459 H POC ABG pCO2 34.8 L POC ABG pO2 54 L Sodium Chloride Creatinine Glucose POC Glucose 221 H 267 H Calcium Total Creatine Kinase Troponin T NT-Pro-B Natriuret Pep Triglycerides Cholesterol LDL Cholesterol Direct HDL Cholesterol 09/23/17 09/23/17 09/24/17 15:57 22:07 04:40 RDW [place] % (Auto) 11.4 H [place] # Seg Neutrophils % POC ABG pH POC ABG pCO2 POC ABG pO2 Sodium Chloride Creatinine Glucose POC Glucose 281 H 166 H Calcium Total Creatine Kinase Troponin T NT-Pro-B Natriuret Pep Triglycerides Cholesterol LDL Cholesterol Direct HDL Cholesterol 09/24/17 09/24/17 09/24/17 04:40 08:42 12:17 RDW [place] % (Auto) [place] # Seg Neutrophils % POC ABG pH POC ABG pCO2 POC ABG pO2 Sodium 133 L Chloride 95.6 L Creatinine 0.7 L Glucose 251 H POC Glucose 173 H 209 H Calcium 7.8 L Total Creatine Kinase Troponin T NT-Pro-B Natriuret Pep Triglycerides Cholesterol LDL Cholesterol Direct HDL Cholesterol 09/24/17 16:13 RDW [place] % (Auto) [place] # Seg Neutrophils % POC ABG pH POC ABG pCO2 POC ABG pO2 Sodium Chloride Creatinine Glucose POC Glucose 248 H Calcium Total Creatine Kinase Troponin T NT-Pro-B Natriuret Pep Triglycerides Cholesterol LDL Cholesterol Direct HDL Cholesterol Chest x-ray: report reviewed (Cardiomegaly,Bilateral infiltrates.), image reviewed CT scan - chest: report reviewed (No PE,Bilateral pulmonary infiltrates.), image reviewed
[2017-09-24] MEDS ORDERED: VANCOMYCIN 1,500 MG in NACL 0.9% 500 ML 500 ML IV SCH (20:30)
[2017-09-24] MEDS: ZESTRIL PO SCH (22:05)
[2017-09-24] MEDS: LEVEMIR SUB-Q SCH (22:06)
[2017-09-24] MEDS: PROVENTIL IH PRN (23:33)
[2017-09-24] MEDS ORDERED: ATIVAN IV PRN (23:58)
[2017-09-25] MEDS ORDERED: ATIVAN ONE (00:13)
[2017-09-25] MEDS: ATIVAN IV PRN ×2 (00:15→04:16)
[2017-09-25] MEDS: TYLENOL PO PRN ×2 (04:14→08:57)
[2017-09-25] MEDS: ZOSYN/NS 3.375GM/50ML 3.375 GM/50 ML BAG IV SCH ×3 (05:00→22:54)
[2017-09-25] MEDS: LOVENOX SUB-Q SCH (09:38)
[2017-09-25] MEDS: BABY ASPIRIN PO SCH (09:39)
[2017-09-25] MEDS: COREG PO SCH (09:39)
[2017-09-25] MEDS: LASIX PO SCH (09:39)
[2017-09-25] MEDS: VANCOMYCIN 1,500 MG in NACL 0.9% 500 ML 500 ML IV SCH ×2 (09:40→21:27)
[2017-09-25] MEDS: NOVOLOG SUB-Q SCH ×4 (09:40→23:57)
--- NOTE | 2017-09-25 10:21 | Progress Note ---
Assessment and Plan Pneumonia Patient is clinically compensated; however, he continues to spike high grade fever Chronic systolic heart failure Better compensated currently Cardiomyopathy, etiology unclear EF 10-15% on echocardiogram. Diabetes Hypertension Hyperlipidemia Recommendations: Obtain a lexiscan once clinically appropriate (patient is still spiking high grade fever) Continue heart failure therapy Fluid and salt restriction advised Subjective Date of service: 09/25/17 Principal diagnosis: Shortness of breath Interval history: Patient is feeling better this morning Shortness of breath is better LE edema is better No evidence of wheezing on exam Objective Vital Signs Temp Pulse Pulse Resp Resp BP BP 09/25/17 08:02 20 150/110 09/25/17 06:00 131 H 09/25/17 05:51 100.6 F H 09/25/17 05:15 102.6 F H 136 H 22 142/90 09/25/17 01:17 123 H 29 H 09/25/17 00:37 97.3 F L 128 H 18 152/114 09/24/17 23:44 152/114 09/24/17 23:40 125 H 20 09/24/17 23:30 123 H 22 09/24/17 22:15 119 H 09/24/17 22:05 142/105 09/24/17 22:00 20 09/24/17 21:29 09/24/17 20:35 98.4 F 121 H 20 142/105 09/24/17 16:09 98.1 F 110 H 16 115/80 09/24/17 10:33 98.3 F 109 H 16 154/105 Pulse Ox 09/25/17 08:02 09/25/17 06:00 09/25/17 05:51 09/25/17 05:15 77 L 09/25/17 01:17 93 09/25/17 00:37 90 09/24/17 23:44 09/24/17 23:40 09/24/17 23:30 09/24/17 22:15 09/24/17 22:05 09/24/17 22:00 09/24/17 21:29 93 09/24/17 20:35 93 09/24/17 16:09 89 09/24/17 10:33 90 - Physical Examination General: No Apparent Distress HEENT: Positive: PERRL Neck: Positive: JVD/HJR Cardiac: Positive: Reg Rate and Rhythm Lungs: Positive: Normal Exam Neuro: Positive: Grossly Intact Abdomen: Positive: Soft Skin: Positive: Clear Extremities: Absent: edema - Imaging and Cardiology EKG: image reviewed
--- NOTE | 2017-09-25 15:53 | Progress Note ---
Assessment and Plan Assessment and plan: This is a 42-year-old man with a history of hypertension, diabetes, CHF was left AMA from the hospital on September 16 where was treated for pneumonia. State he continues to have shortness of breath, generalized weakness. He has been home over the last 4 days, unable to do much of his ADLs. He complained of blurred vision and the at the stop several times during the interview, seem as if he is trying to find words to express himself. Bilateral pneumonia - Worsening bilateral infiltrates - On IV antibiotics - Pulmonary consult appreciated - Patient spiking fever Cardiomyopathy - EF of 10-15%, systolic dysfunction - continue with CHF medications - Cardiology consulted - Lexiscan stress test to be done tomorrow. DVT prophylaxis - On lovenox History Interval history: Patient was seen and evaluated this morning, no chest pain, or SOB. Patient has spikes of fever. Hospitalist Physical - Physical exam Narrative exam: Not in cardiopulmonary distress. The patient appeared well nourished and normally developed. Vital signs as documented. Head exam is unremarkable. No scleral icterus . Neck is without jugular venous distension, thyromegaly, or carotid bruits. Lungs decrease airentry . Cardiac exam reveals regular rate and Rhythm. First and second heart sounds normal. No murmurs, rubs or gallops. Abdominal exam reveals normal bowel sounds, no masses, no organomegaly and no aortic enlargement. Extremities are nonedematous and both femoral and pedal pulses are normal. 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 No focal weakness. - Constitutional Vitals: Temp Pulse Resp BP Pulse Ox 100.6 F H 112 H 29 H 150/110 96 09/25/17 05:51 09/25/17 14:47 09/25/17 14:47 09/25/17 08:02 09/25/17 14:47 General appearance: Present: no acute distress Results - Labs CBC & Chem 7: 09/24/17 04:40 09/24/17 04:40 Labs: Laboratory Last Values WBC 6.3 K/mm3 (4.5-11.0) 09/24/17 04:40 RBC 4.48 M/mm3 (3.65-5.03) 09/24/17 04:40 Hgb 12.9 gm/dl (11.8-15.2) 09/24/17 04:40 Hct 38.7 % (35.5-45.6) 09/24/17 04:40 MCV 86 fl (84-94) 09/24/17 04:40 MCH 29 pg (28-32) 09/24/17 04:40 MCHC 33 % (32-34) 09/24/17 04:40 RDW 14.8 % (13.2-15.2) 09/24/17 04:40 Plt Count 283 K/mm3 (140-440) 09/24/17 04:40 Lymph % (Auto) 21.5 % (13.4-35.0) 09/24/17 04:40 [place] % (Auto) 11.4 % (0.0-7.3) H 09/24/17 04:40 Eos % (Auto) 0.6 % (0.0-4.3) 09/24/17 04:40 Baso % (Auto) 0.5 % (0.0-1.8) 09/24/17 04:40 Lymph # 1.3 K/mm3 (1.2-5.4) 09/24/17 04:40 [place] # 0.7 K/mm3 (0.0-0.8) 09/24/17 04:40 Eos # 0.0 K/mm3 (0.0-0.4) 09/24/17 04:40 Baso # 0.0 K/mm3 (0.0-0.1) 09/24/17 04:40 Seg Neutrophils % 66.0 % (40.0-70.0) 09/24/17 04:40 Seg Neutrophils # 4.1 K/mm3 (1.8-7.7) 09/24/17 04:40 POC ABG pH 7.459 (7.35-7.45) H 09/23/17 15:04 POC ABG pCO2 34.8 (35-45) L 09/23/17 15:04 POC ABG pO2 54 (80-105) L 09/23/17 15:04 POC ABG HCO3 24.7 09/23/17 15:04 POC ABG Total CO2 26 09/23/17 15:04 POC ABG O2 Sat 89 09/23/17 15:04 POC ABG Base Excess 1 09/23/17 15:04 FiO2 21 % 09/23/17 15:04 Sodium 133 mmol/L (137-145) L 09/24/17 04:40 Potassium 3.8 mmol/L (3.6-5.0) 09/24/17 04:40 Chloride 95.6 mmol/L (98-107) L 09/24/17 04:40 Carbon Dioxide 25 mmol/L (22-30) 09/24/17 04:40 Anion Gap 16 mmol/L 09/24/17 04:40 BUN 10 mg/dL (9-20) 09/24/17 04:40 Creatinine 0.7 mg/dL (0.8-1.5) L 09/24/17 04:40 Estimated GFR > 60 ml/min 09/24/17 04:40 BUN/Creatinine Ratio 14 % 09/24/17 04:40 Glucose 251 mg/dL (75-100) H 09/24/17 04:40 POC Glucose 185 (70-105) H 09/25/17 12:44 Calcium 7.8 mg/dL (8.4-10.2) L 09/24/17 04:40 Total Creatine Kinase 170 units/L (55-170) 09/23/17 04:10 CK-MB (CK-2) 1.4 ng/mL (0.0-4.0) 09/23/17 04:10 CK-MB (CK-2) Rel Index 0.8 (0-4) 09/23/17 04:10 Troponin T 0.287 ng/mL (0.00-0.029) H* 09/23/17 04:10 NT-Pro-B Natriuret Pep 5093 pg/mL (0-450) H 09/22/17 21:31 Triglycerides 226 mg/dL (2-149) H 09/22/17 21:31 Cholesterol 235 mg/dL (50-199) H 09/22/17 21:31 LDL Cholesterol Direct 164 mg/dL (50-130) H 09/22/17 21:31 HDL Cholesterol 26 mg/dL (40-59) L 09/22/17 21:31 Cholesterol/HDL Ratio 9.03 % 09/22/17 21:31
--- NOTE | 2017-09-25 17:40 | Progress Note ---
Assessment and Plan Patient sleeping on BIPAP. But patient easily arousable. No complaint of chest pain or shortness of breath at this time.O2 saturation 96% at this time. - Patient Problems (1) Bilateral pleural effusion Current Visit: Yes Status: Acute Plan to address problem: Obtaining Ultrasound of chest. (2) Bilateral pneumonia Current Visit: Yes Status: Acute Qualifiers: Pneumonia type: due to unspecified organism Lung location: unspecified part of lung Qualified Code(s): J18.9 - Pneumonia, unspecified organism Plan to address problem: Patient is on zosyn and vancomycin. (3) Acute congestive heart failure Current Visit: Yes Status: Acute Qualifiers: Congestive heart failure type: unspecified Qualified Code(s): I50.9 - Heart failure, unspecified Plan to address problem: Management as per primary care and cardiology. (4) Diabetes mellitus type 2, insulin dependent Current Visit: No Status: Acute Plan to address problem: Management as per primary care. (5) Obesity (BMI 30-39.9) Current Visit: No Status: Acute Plan to address problem: Recommend to loose weight. Diet and exercise. (6) Sleep apnea Current Visit: No Status: Acute Plan to address problem: BIPAP 20/02, rate 16, FIO2 30%. Subjective Date of service: 09/25/17 Principal diagnosis: Shortness of breath Interval history: Patient sleeping on BIPAP. But patient easily arousable. No complaint of chest pain or shortness of breath at this time.O2 saturation 96% at this time. Objective Vital Signs - 12hr 09/25/17 09/25/17 09/25/17 05:51 06:00 08:02 Temperature 100.6 F H Pulse Rate 131 H Respiratory 20 Rate Blood Pressure 150/110 O2 Sat by Pulse Oximetry 09/25/17 09/25/17 09/25/17 11:00 12:36 14:47 Temperature Pulse Rate 116 H 112 H Respiratory 29 H Rate Blood Pressure O2 Sat by Pulse 92 78 L 96 Oximetry Constitutional: no acute distress, alert Eyes: non-icteric ENT: oropharynx moist Neck: supple, no lymphadenopathy Ascultation: Bilateral: diminished breath sounds Cardiovascular: regular rate and rhythm Gastrointestinal: normoactive bowel sounds, soft, non-tender Integumentary: normal Extremities: no cyanosis, no edema Neurologic: normal mental status, non-focal exam, pupils equal and round, CN II- XII normal Psychiatric: mood appropriate CBC and BMP: 09/24/17 04:40 09/24/17 04:40 ABG, PT/INR, D-dimer: ABG POC ABG pH 7.459 (7.35-7.45) H 09/23/17 15:04 POC ABG pCO2 34.8 (35-45) L 09/23/17 15:04 POC ABG pO2 54 (80-105) L 09/23/17 15:04 POC ABG HCO3 24.7 09/23/17 15:04 POC ABG Total CO2 26 09/23/17 15:04 POC ABG O2 Sat 89 09/23/17 15:04 Abnormal lab findings: Abnormal Labs 09/22/17 09/22/17 09/22/17 21:30 21:31 21:31 RDW 15.3 H Ransom % (Auto) 9.6 H Ransom # 0.9 H Seg Neutrophils % 72.0 H POC ABG pH POC ABG pCO2 POC ABG pO2 Sodium Chloride Creatinine Glucose POC Glucose Calcium Total Creatine Kinase 371 H Troponin T 0.260 H* NT-Pro-B Natriuret Pep 5093 H Triglycerides 226 H Cholesterol 235 H LDL Cholesterol Direct 164 H HDL Cholesterol 26 L 09/22/17 09/22/17 09/23/17 22:54 22:54 04:00 RDW [place] % (Auto) 11.9 H Ransom # Seg Neutrophils % POC ABG pH POC ABG pCO2 POC ABG pO2 Sodium 129 L Chloride 91.6 L Creatinine 0.7 L Glucose 256 H POC Glucose Calcium 7.9 L Total Creatine Kinase 211 H Troponin T 0.344 H* D NT-Pro-B Natriuret Pep Triglycerides Cholesterol LDL Cholesterol Direct HDL Cholesterol 09/23/17 09/23/17 09/23/17 04:00 04:10 09:09 RDW [place]ansom % (Auto) Ransom # Seg Neutrophils % POC ABG pH POC ABG pCO2 POC ABG pO2 Sodium 136 L D Chloride 95.3 L Creatinine Glucose 181 H POC Glucose 166 H Calcium 7.7 L Total Creatine Kinase Troponin T 0.287 H* NT-Pro-B Natriuret Pep Triglycerides Cholesterol LDL Cholesterol Direct HDL Cholesterol 09/23/17 09/23/17 09/23/17 11:40 13:19 15:04 RDW [place] % (Auto) Ransom # Seg Neutrophils % POC ABG pH 7.459 H POC ABG pCO2 34.8 L POC ABG pO2 54 L Sodium Chloride Creatinine Glucose POC Glucose 221 H 267 H Calcium Total Creatine Kinase Troponin T NT-Pro-B Natriuret Pep Triglycerides Cholesterol LDL Cholesterol Direct HDL Cholesterol 09/23/17 09/23/17 09/24/17 15:57 22:07 04:40 RDW [place] % (Auto) 11.4 H [place] # Seg Neutrophils % POC ABG pH POC ABG pCO2 POC ABG pO2 Sodium Chloride Creatinine Glucose POC Glucose 281 H 166 H Calcium Total Creatine Kinase Troponin T NT-Pro-B Natriuret Pep Triglycerides Cholesterol LDL Cholesterol Direct HDL Cholesterol 09/24/17 09/24/17 09/24/17 04:40 08:42 12:17 RDW [place] % (Auto) Ransom # Seg Neutrophils % POC ABG pH POC ABG pCO2 POC ABG pO2 Sodium 133 L Chloride 95.6 L Creatinine 0.7 L Glucose 251 H POC Glucose 173 H 209 H Calcium 7.8 L Total Creatine Kinase Troponin T NT-Pro-B Natriuret Pep Triglycerides Cholesterol LDL Cholesterol Direct HDL Cholesterol 09/24/17 09/24/17 09/25/17 16:13 21:21 12:44 RDW [place] % (Auto) Ransom # Seg Neutrophils % POC ABG pH POC ABG pCO2 POC ABG pO2 Sodium Chloride Creatinine Glucose POC Glucose 248 H 152 H 185 H Calcium Total Creatine Kinase Troponin T NT-Pro-B Natriuret Pep Triglycerides Cholesterol LDL Cholesterol Direct HDL Cholesterol
[2017-09-25] MEDS: ZESTRIL PO SCH (22:58)
[2017-09-25] MEDS: LEVEMIR SUB-Q SCH (23:56)
[2017-09-26] MEDS: ATIVAN IV PRN ×2 (03:25→11:32)
[2017-09-26 06:17] LABS: Basophils # (Auto) 0.1 K/mm3 (0.0-0.1); Basophils % (Auto) 0.4 % (0.0-1.8); Hematocrit 39.3 % (35.5-45.6); Hemoglobin 12.9 gm/dl (11.8-15.2); Lymphocytes # (Auto) 2.5 K/mm3 (1.2-5.4); Lymphocytes % (Auto) 16.1 % (13.4-35.0); Mean Corpuscular HGB Conc 33 % (32-34); Mean Corpuscular Hemoglobin 28 pg (28-32); Mean Corpuscular Volume 86 fl (84-94); Monocytes # (Auto) 0.8 K/mm3 (0.0-0.8); Platelet Count 325 K/mm3 (140-440); Red Blood Count 4.55 M/mm3 (3.65-5.03); Red Cell Distribution Width 15.1 % (13.2-15.2)
[2017-09-26 06:42] LABS: BUN/Creatinine Ratio 13; Blood Urea Nitrogen 9 mg/dL (9-20); Calcium 8.3 mg/dL (8.4-10.2); Hemolysis Index 18
[2017-09-26] MEDS: ZOSYN/NS 3.375GM/50ML 3.375 GM/50 ML BAG IV SCH ×2 (06:58→14:30)
[2017-09-26] MEDS: NOVOLOG SUB-Q SCH ×4 (10:06→23:30)
--- NOTE | 2017-09-26 10:27 | Progress Note ---
Assessment and Plan Pneumonia Shortness of breath, fever and tachycardia Chronic systolic heart failure Better compensated currently Cardiomyopathy, etiology unclear EF 10-15% on echocardiogram. Diabetes Hypertension Hyperlipidemia Recommendations: Obtain a lexiscan once clinically appropriate (patient is still spiking high grade fever, tachycardia and shortness of breath) Continue heart failure therapy Fluid and salt restriction advised Subjective Date of service: 09/26/17 Principal diagnosis: Shortness of breath Interval history: Patient is still short of breath, having fever and tachycardic Objective Vital Signs Temp Pulse Resp BP Pulse Ox 09/26/17 10:00 131 H 20 94 09/26/17 03:23 99.4 F 136 H 24 130/84 97 09/26/17 00:56 100.4 F H 136 H 24 130/84 95 09/25/17 22:58 126/89 09/25/17 22:07 138 H 29 H 96 09/25/17 21:18 99.7 F H 138 H 28 H 126/89 94 09/25/17 20:30 137 H 09/25/17 14:47 112 H 29 H 96 09/25/17 12:36 116 H 78 L 09/25/17 11:00 92 - Physical Examination General: No Apparent Distress HEENT: Positive: PERRL Neck: Positive: JVD/HJR Cardiac: Positive: Tachycardia Lungs: Positive: Decreased Breath Sounds Neuro: Positive: Grossly Intact Abdomen: Positive: Soft Skin: Positive: Clear Extremities: Absent: edema - Labs and Meds CBC 09/26/17 Range/Units 05:35 WBC 15.6 H (4.5-11.0) K/mm3 RBC 4.55 (3.65-5.03) M/mm3 Hgb 12.9 (11.8-15.2) gm/dl Hct 39.3 (35.5-45.6) % Plt Count 325 (140-440) K/mm3 Lymph # 2.5 (1.2-5.4) K/mm3 [place] # 0.8 (0.0-0.8) K/mm3 Eos # 0.0 (0.0-0.4) K/mm3 Baso # 0.1 (0.0-0.1) K/mm3 Comprehensive Metabolic Panel 09/26/17 Range/Units 05:35 Sodium 133 L (137-145) mmol/L Potassium 4.3 (3.6-5.0) mmol/L Chloride 95.2 L (98-107) mmol/L Carbon Dioxide 24 (22-30) mmol/L BUN 9 (9-20) mg/dL Creatinine 0.7 L (0.8-1.5) mg/dL Glucose 161 H (75-100) mg/dL Calcium 8.3 L (8.4-10.2) mg/dL - Imaging and Cardiology EKG: image reviewed
[2017-09-26] MEDS: VANCOMYCIN 1,500 MG in NACL 0.9% 500 ML 500 ML IV SCH ×2 (11:04→21:00)
[2017-09-26] MEDS: LASIX PO SCH (11:04)
[2017-09-26] MEDS: COREG PO SCH (11:04)
[2017-09-26] MEDS: LOVENOX SUB-Q SCH (11:05)
[2017-09-26] MEDS: BABY ASPIRIN PO SCH (11:05)
--- NOTE | 2017-09-26 17:33 | Progress Note ---
Assessment and Plan Assessment and plan: This is a 42-year-old man with a history of hypertension, diabetes, CHF was left AMA from the hospital on September 16 where was treated for pneumonia. State he continues to have shortness of breath, generalized weakness. He has been home over the last 4 days, unable to do much of his ADLs. He complained of blurred vision and the at the stop several times during the interview, seem as if he is trying to find words to express himself. Acute hypoxic respiratory failure - ON BIPAP Bilateral pneumonia - Worsening bilateral infiltrates - On IV antibiotics - Pulmonary consult appreciated - Patient spiking fever and leukocytosis, ID consulted Cardiomyopathy - EF of 10-15%, systolic dysfunction - continue with CHF medications - Cardiology consulted - Lexiscan stress test to be done once stable. DVT prophylaxis - On lovenox History Interval history: Patient was seen and evaluated this morning, no chest pain. Patient has spikes of fever. Patient was saturating well on [place] oxygen but prefers to be on BIPAP. Hospitalist Physical - Physical exam Narrative exam: Not in cardiopulmonary distress. The patient is obese. Vital signs as documented. Head exam is unremarkable. No scleral icterus . Neck is without jugular venous distension, thyromegaly, or carotid bruits. Lungs decrease airentry . Cardiac exam reveals regular rate and Rhythm. First and second heart sounds normal. No murmurs, rubs or gallops. Abdominal exam reveals normal bowel sounds, no masses, no organomegaly and no aortic enlargement. Extremities are nonedematous and both femoral and pedal pulses are normal. [employer]: Alert and oriented 3. No focal weakness. - Constitutional Vitals: Temp Pulse Resp BP Pulse Ox 99.4 F 131 H 20 130/84 96 09/26/17 03:23 09/26/17 10:00 09/26/17 10:00 09/26/17 03:23 09/26/17 10:00 General appearance: Present: no acute distress Results - Labs CBC & Chem 7: 09/26/17 05:35 09/26/17 05:35 Labs: Laboratory Last Values WBC 15.6 K/mm3 (4.5-11.0) H 09/26/17 05:35 RBC 4.55 M/mm3 (3.65-5.03) 09/26/17 05:35 Hgb 12.9 gm/dl (11.8-15.2) 09/26/17 05:35 Hct 39.3 % (35.5-45.6) 09/26/17 05:35 MCV 86 fl (84-94) 09/26/17 05:35 MCH 28 pg (28-32) 09/26/17 05:35 MCHC 33 % (32-34) 09/26/17 05:35 RDW 15.1 % (13.2-15.2) 09/26/17 05:35 Plt Count 325 K/mm3 (140-440) 09/26/17 05:35 Lymph % (Auto) 16.1 % (13.4-35.0) 09/26/17 05:35 [place] % (Auto) 5.0 % (0.0-7.3) 09/26/17 05:35 Eos % (Auto) 0.0 % (0.0-4.3) 09/26/17 05:35 Baso % (Auto) 0.4 % (0.0-1.8) 09/26/17 05:35 Lymph # 2.5 K/mm3 (1.2-5.4) 09/26/17 05:35 [place] # 0.8 K/mm3 (0.0-0.8) 09/26/17 05:35 Eos # 0.0 K/mm3 (0.0-0.4) 09/26/17 05:35 Baso # 0.1 K/mm3 (0.0-0.1) 09/26/17 05:35 Seg Neutrophils % 78.5 % (40.0-70.0) H 09/26/17 05:35 Seg Neutrophils # 12.2 K/mm3 (1.8-7.7) H 09/26/17 05:35 POC ABG pH 7.459 (7.35-7.45) H 09/23/17 15:04 POC ABG pCO2 34.8 (35-45) L 09/23/17 15:04 POC ABG pO2 54 (80-105) L 09/23/17 15:04 POC ABG HCO3 24.7 09/23/17 15:04 POC ABG Total CO2 26 09/23/17 15:04 POC ABG O2 Sat 89 09/23/17 15:04 POC ABG Base Excess 1 09/23/17 15:04 FiO2 21 % 09/23/17 15:04 Sodium 133 mmol/L (137-145) L 09/26/17 05:35 Potassium 4.3 mmol/L (3.6-5.0) 09/26/17 05:35 Chloride 95.2 mmol/L (98-107) L 09/26/17 05:35 Carbon Dioxide 24 mmol/L (22-30) 09/26/17 05:35 Anion Gap 18 mmol/L 09/26/17 05:35 BUN 9 mg/dL (9-20) 09/26/17 05:35 Creatinine 0.7 mg/dL (0.8-1.5) L 09/26/17 05:35 Estimated GFR > 60 ml/min 09/26/17 05:35 BUN/Creatinine Ratio 13 % 09/26/17 05:35 Glucose 161 mg/dL (75-100) H 09/26/17 05:35 POC Glucose 187 (70-105) H 09/25/17 23:10 Calcium 8.3 mg/dL (8.4-10.2) L 09/26/17 05:35 Magnesium 1.70 mg/dL (1.7-2.3) 09/26/17 05:35 Total Creatine Kinase 170 units/L (55-170) 09/23/17 04:10 CK-MB (CK-2) 1.4 ng/mL (0.0-4.0) 09/23/17 04:10 CK-MB (CK-2) Rel Index 0.8 (0-4) 09/23/17 04:10 Troponin T 0.287 ng/mL (0.00-0.029) H* 09/23/17 04:10 NT-Pro-B Natriuret Pep 5093 pg/mL (0-450) H 09/22/17 21:31 Triglycerides 226 mg/dL (2-149) H 09/22/17 21:31 Cholesterol 235 mg/dL (50-199) H 09/22/17 21:31 LDL Cholesterol Direct 164 mg/dL (50-130) H 09/22/17 21:31 HDL Cholesterol 26 mg/dL (40-59) L 09/22/17 21:31 Cholesterol/HDL Ratio 9.03 % 09/22/17 21:31
[2017-09-26] MEDS: PROVENTIL IH PRN (20:42)
--- NOTE | 2017-09-26 22:00 | Progress Note ---
Assessment and Plan Patient resting on BIPAP.16, rate 16, FIO2 35% . No complaint of chest pain or shortness of breath at this time.O2 saturation 95% at this time. - Patient Problems (1) Bilateral pleural effusion Current Visit: Yes Status: Acute Plan to address problem: Ultrasound of chest not done yet. (2) Bilateral pneumonia Current Visit: Yes Status: Acute Qualifiers: Pneumonia type: due to unspecified organism Lung location: unspecified part of lung Qualified Code(s): J18.9 - Pneumonia, unspecified organism Plan to address problem: Patient is on zosyn and vancomycin. (3) Acute congestive heart failure Current Visit: Yes Status: Acute Qualifiers: Congestive heart failure type: unspecified Qualified Code(s): I50.9 - Heart failure, unspecified Plan to address problem: Management as per primary care and cardiology. (4) Diabetes mellitus type 2, insulin dependent Current Visit: No Status: Acute Plan to address problem: Management as per primary care. (5) Obesity (BMI 30-39.9) Current Visit: No Status: Acute Plan to address problem: Recommend to loose weight. Diet and exercise. (6) Sleep apnea Current Visit: No Status: Acute Plan to address problem: BIPAP 16/6, rate 16, FIO2 30%. Subjective Date of service: 09/26/17 Principal diagnosis: Shortness of breath Interval history: Patient resting on BIPAP.16, rate 16,FIO2 30%. . No complaint of chest pain or shortness of breath at this time.O2 saturation 95% at this time. Objective Vital Signs - 12hr 09/26/17 09/26/17 09/26/17 10:00 19:25 20:27 Temperature 102.8 F H Pulse Rate 131 H 128 H 128 H Pulse Rate [ Bilateral Throughout] Respiratory 20 22 Rate Respiratory Rate [Bilateral Throughout] Blood Pressure 110/72 [Left] O2 Sat by Pulse 96 75 L Oximetry 09/26/17 20:52 Temperature Pulse Rate Pulse Rate [ 110 H Bilateral Throughout] Respiratory Rate Respiratory 22 Rate [Bilateral Throughout] Blood Pressure [Left] O2 Sat by Pulse Oximetry Constitutional: no acute distress, alert Eyes: non-icteric ENT: oropharynx moist Neck: supple, no lymphadenopathy Ascultation: Bilateral: diminished breath sounds Cardiovascular: regular rate and rhythm Gastrointestinal: normoactive bowel sounds, soft, non-tender Integumentary: normal Extremities: no cyanosis, no edema Neurologic: normal mental status, non-focal exam, pupils equal and round, CN II- XII normal Psychiatric: mood appropriate CBC and BMP: 09/26/17 05:35 09/26/17 05:35 ABG, PT/INR, D-dimer: ABG POC ABG pH 7.459 (7.35-7.45) H 09/23/17 15:04 POC ABG pCO2 34.8 (35-45) L 09/23/17 15:04 POC ABG pO2 54 (80-105) L 09/23/17 15:04 POC ABG HCO3 24.7 09/23/17 15:04 POC ABG Total CO2 26 09/23/17 15:04 POC ABG O2 Sat 89 09/23/17 15:04 Abnormal lab findings: Abnormal Labs 09/22/17 09/22/17 09/22/17 21:30 21:31 21:31 WBC RDW 15.3 H [place] % (Auto) 9.6 H [place] # 0.9 H Seg Neutrophils % 72.0 H Seg Neutrophils # POC ABG pH POC ABG pCO2 POC ABG pO2 Sodium Chloride Creatinine Glucose POC Glucose Calcium Total Creatine Kinase 371 H Troponin T 0.260 H* NT-Pro-B Natriuret Pep 5093 H Triglycerides 226 H Cholesterol 235 H LDL Cholesterol Direct 164 H HDL Cholesterol 26 L 09/22/17 09/22/17 09/23/17 22:54 22:54 04:00 WBC RDW [place] % (Auto) 11.9 H [place] # Seg Neutrophils % Seg Neutrophils # POC ABG pH POC ABG pCO2 POC ABG pO2 Sodium 129 L Chloride 91.6 L Creatinine 0.7 L Glucose 256 H POC Glucose Calcium 7.9 L Total Creatine Kinase 211 H Troponin T 0.344 H* D NT-Pro-B Natriuret Pep Triglycerides Cholesterol LDL Cholesterol Direct HDL Cholesterol 09/23/17 09/23/17 09/23/17 04:00 04:10 09:09 WBC RDW [place] % (Auto) [place] # Seg Neutrophils % Seg Neutrophils # POC ABG pH POC ABG pCO2 POC ABG pO2 Sodium 136 L D Chloride 95.3 L Creatinine Glucose 181 H POC Glucose 166 H Calcium 7.7 L Total Creatine Kinase Troponin T 0.287 H* NT-Pro-B Natriuret Pep Triglycerides Cholesterol LDL Cholesterol Direct HDL Cholesterol 09/23/17 09/23/17 09/23/17 11:40 13:19 15:04 WBC RDW [place] % (Auto) [place] # Seg Neutrophils % Seg Neutrophils # POC ABG pH 7.459 H POC ABG pCO2 34.8 L POC ABG pO2 54 L Sodium Chloride Creatinine Glucose POC Glucose 221 H 267 H Calcium Total Creatine Kinase Troponin T NT-Pro-B Natriuret Pep Triglycerides Cholesterol LDL Cholesterol Direct HDL Cholesterol 09/23/17 09/23/17 09/24/17 15:57 22:07 04:40 WBC RDW [place] % (Auto) 11.4 H [place] # Seg Neutrophils % Seg Neutrophils # POC ABG pH POC ABG pCO2 POC ABG pO2 Sodium Chloride Creatinine Glucose POC Glucose 281 H 166 H Calcium Total Creatine Kinase Troponin T NT-Pro-B Natriuret Pep Triglycerides Cholesterol LDL Cholesterol Direct HDL Cholesterol 09/24/17 09/24/17 09/24/17 04:40 08:42 12:17 WBC RDW [place] % (Auto) [place] # Seg Neutrophils % Seg Neutrophils # POC ABG pH POC ABG pCO2 POC ABG pO2 Sodium 133 L Chloride 95.6 L Creatinine 0.7 L Glucose 251 H POC Glucose 173 H 209 H Calcium 7.8 L Total Creatine Kinase Troponin T NT-Pro-B Natriuret Pep Triglycerides Cholesterol LDL Cholesterol Direct HDL Cholesterol 09/24/17 09/24/17 09/25/17 16:13 21:21 12:44 WBC RDW [place] % (Auto) [place] # Seg Neutrophils % Seg Neutrophils # POC ABG pH POC ABG pCO2 POC ABG pO2 Sodium Chloride Creatinine Glucose POC Glucose 248 H 152 H 185 H Calcium Total Creatine Kinase Troponin T NT-Pro-B Natriuret Pep Triglycerides Cholesterol LDL Cholesterol Direct HDL Cholesterol 09/25/17 09/25/17 09/26/17 17:18 23:10 05:35 WBC 15.6 H RDW [place] % (Auto) [place] # Seg Neutrophils % 78.5 H Seg Neutrophils # 12.2 H POC ABG pH POC ABG pCO2 POC ABG pO2 Sodium Chloride Creatinine Glucose POC Glucose 186 H 187 H Calcium Total Creatine Kinase Troponin T NT-Pro-B Natriuret Pep Triglycerides Cholesterol LDL Cholesterol Direct HDL Cholesterol 09/26/17 09/26/17 09/26/17 05:35 09:02 12:20 WBC RDW [place] % (Auto) [place] # Seg Neutrophils % Seg Neutrophils # POC ABG pH POC ABG pCO2 POC ABG pO2 Sodium 133 L Chloride 95.2 L Creatinine 0.7 L Glucose 161 H POC Glucose 131 H 199 H Calcium 8.3 L Total Creatine Kinase Troponin T NT-Pro-B Natriuret Pep Triglycerides Cholesterol LDL Cholesterol Direct HDL Cholesterol 09/26/17 16:39 WBC RDW [place] % (Auto) [place] # Seg Neutrophils % Seg Neutrophils # POC ABG pH POC ABG pCO2 POC ABG pO2 Sodium Chloride Creatinine Glucose POC Glucose 209 H Calcium Total Creatine Kinase Troponin T NT-Pro-B Natriuret Pep Triglycerides Cholesterol LDL Cholesterol Direct HDL Cholesterol
[2017-09-26] MEDS: LEVEMIR SUB-Q SCH (23:30)
[2017-09-26] MEDS: ZESTRIL PO SCH (23:30)
[2017-09-27] MEDS: ZOSYN/NS 3.375GM/50ML 3.375 GM/50 ML BAG IV SCH ×4 (00:13→23:09)
[2017-09-27] MEDS: TYLENOL PO PRN (02:47)
[2017-09-27 09:33] LABS: Basophils # (Auto) 0.1 K/mm3 (0.0-0.1); Basophils % (Auto) 0.9 % (0.0-1.8); Eosinophils % (Auto) 0.2 % (0.0-4.3); Lymphocytes # (Auto) 1.7 K/mm3 (1.2-5.4); Lymphocytes % (Auto) 17.5 % (13.4-35.0); Mean Corpuscular HGB Conc 33 % (32-34); Mean Corpuscular Hemoglobin 28 pg (28-32); Mean Corpuscular Volume 86 fl (84-94); Monocytes # (Auto) 0.4 K/mm3 (0.0-0.8); Monocytes % (Auto) 4.2 % (0.0-7.3); Platelet Count 263 K/mm3 (140-440); Red Blood Count 3.86 M/mm3 (3.65-5.03); Red Cell Distribution Width 14.8 % (13.2-15.2)
[2017-09-27 09:48] LABS: Hematocrit TNR % (35.5-45.6)
[2017-09-27 09:58] LABS: BUN/Creatinine Ratio 14; Blood Urea Nitrogen 21 mg/dL (9-20); Hemolysis Index 0
--- NOTE | 2017-09-27 10:18 | XRay Report ---
AP CHEST: HISTORY: Pneumonia Mild cardiomegaly is stable since 09/22/17. There are mild bilateral peribronchial infiltrates which could represent pulmonary edema or pneumonia. The right lung base is most affected. No large pleural effusion or pneumothorax. The bony structures are grossly intact. IMPRESSION: No change.
--- NOTE | 2017-09-27 10:37 | Progress Note ---
Assessment and Plan Pneumonia Shortness of breath, fever and tachycardia Chronic systolic heart failure Better compensated currently Cardiomyopathy, etiology unclear EF 10-15% on echocardiogram. Diabetes Hypertension Hyperlipidemia Recommendations: Obtain a lexiscan once clinically appropriate (patient is still spiking high grade fever, tachycardia and shortness of breath) Discontinue lasix as patient appears euvolemic on exam Treatment of ? atypical pneumonia per primary team and pulmonary Subjective Date of service: 09/27/17 Principal diagnosis: Shortness of breath Interval history: No cardiac events overnight Patient is still tachy and spiking fever CXR showing infiltrates Objective Vital Signs Temp Pulse Pulse Resp Resp BP Pulse Ox 09/27/17 09:54 102 H 20 99 09/27/17 09:34 98 09/27/17 05:57 98 F 95 H 20 93/73 09/27/17 02:58 22 94 09/27/17 02:47 22 09/27/17 00:51 100.8 F H 126 H 18 102/72 95 09/26/17 23:36 126 H 40 H 93 09/26/17 22:00 91 09/26/17 20:52 110 H 22 09/26/17 20:27 102.8 F H 128 H 22 110/72 75 L 09/26/17 19:25 128 H - Physical Examination General: No Apparent Distress HEENT: Positive: PERRL Neck: Positive: JVD/HJR Cardiac: Positive: Tachycardia Lungs: Positive: Decreased Breath Sounds Neuro: Positive: Grossly Intact Abdomen: Positive: Soft Skin: Positive: Clear Extremities: Absent: edema - Labs and Meds CBC 09/27/17 Range/Units 09:20 WBC 9.8 (4.5-11.0) K/mm3 RBC 3.86 (3.65-5.03) M/mm3 Hgb 11.0 L (11.8-15.2) gm/dl Hct TNR Plt Count 263 (140-440) K/mm3 Lymph # 1.7 (1.2-5.4) K/mm3 [place] # 0.4 (0.0-0.8) K/mm3 Eos # 0.0 (0.0-0.4) K/mm3 Baso # 0.1 (0.0-0.1) K/mm3 Comprehensive Metabolic Panel 09/27/17 Range/Units 09:20 Sodium 134 L (137-145) mmol/L Potassium 4.8 (3.6-5.0) mmol/L Chloride 96.1 L (98-107) mmol/L Carbon Dioxide 25 (22-30) mmol/L BUN 21 H (9-20) mg/dL Creatinine 1.5 D (0.8-1.5) mg/dL Glucose 139 H (75-100) mg/dL Calcium 8.0 L (8.4-10.2) mg/dL - Imaging and Cardiology EKG: image reviewed
[2017-09-27] MEDS: VANCOMYCIN 1,500 MG in NACL 0.9% 500 ML 500 ML IV SCH ×2 (10:39→20:30)
[2017-09-27] MEDS: BABY ASPIRIN PO SCH (10:40)
[2017-09-27] MEDS: COREG PO SCH (10:40)
[2017-09-27] MEDS: LOVENOX SUB-Q SCH (10:40)
[2017-09-27] MEDS: LASIX PO SCH (10:40)
[2017-09-27] MEDS: NOVOLOG SUB-Q SCH ×4 (10:41→23:58)
[2017-09-27 13:13] LABS: Basophils % (Auto) 0.6 % (0.0-1.8); Eosinophils % (Auto) 0.3 % (0.0-4.3); Hematocrit 32.1 % (35.5-45.6); Hemoglobin 10.7 gm/dl (11.8-15.2); Lymphocytes # (Auto) 1.3 K/mm3 (1.2-5.4); Lymphocytes % (Auto) 15.3 % (13.4-35.0); Mean Corpuscular HGB Conc 33 % (32-34); Mean Corpuscular Hemoglobin 29 pg (28-32); Mean Corpuscular Volume 86 fl (84-94); Monocytes # (Auto) 0.3 K/mm3 (0.0-0.8); Monocytes % (Auto) 3.2 % (0.0-7.3); Platelet Count 253 K/mm3 (140-440); Red Blood Count 3.73 M/mm3 (3.65-5.03)
--- NOTE | 2017-09-27 16:31 | Progress Note ---
Assessment and Plan Assessment and plan: This is a 42-year-old man with a history of hypertension, diabetes, CHF was left AMA from the hospital on September 16 where was treated for pneumonia. State he continues to have shortness of breath, generalized weakness. He has been home over the last 4 days, unable to do much of his ADLs. He complained of blurred vision and the at the stop several times during the interview, seem as if he is trying to find words to express himself. Acute hypoxic respiratory failure - ON BIPAP Bilateral pneumonia - Worsening bilateral infiltrates - On IV antibiotics - Pulmonary consult appreciated - Patient spiking fever and leukocytosis, ID consulted Cardiomyopathy - EF of 10-15%, systolic dysfunction - continue with CHF medications - Cardiology consulted - Lexiscan stress test to be done once stable. DVT prophylaxis - On lovenox History Interval history: Patient was seen and evaluated this morning, no chest pain. Patient has spikes of fever. Patient was saturating well on [place] oxygen but prefers to be on BIPAP. Hospitalist Physical - Physical exam Narrative exam: Not in cardiopulmonary distress. The patient is obese. Vital signs as documented. Head exam is unremarkable. No scleral icterus . Neck is without jugular venous distension, thyromegaly, or carotid bruits. Lungs decrease airentry . Cardiac exam reveals regular rate and Rhythm. First and second heart sounds normal. No murmurs, rubs or gallops. Abdominal exam reveals normal bowel sounds, no masses, no organomegaly and no aortic enlargement. Extremities are nonedematous and both femoral and pedal pulses are normal. GYNECOLOGIST: Alert and oriented 3. No focal weakness. - Constitutional Vitals: Temp Pulse Resp BP Pulse Ox 98.6 F 102 H 20 114/70 99 09/27/17 08:08 09/27/17 09:54 09/27/17 09:54 09/27/17 08:08 09/27/17 09:54 General appearance: Present: no acute distress Results - Labs CBC & Chem 7: 09/27/17 11:50 09/27/17 09:20 Labs: Laboratory Last Values WBC 8.5 K/mm3 (4.5-11.0) 09/27/17 11:50 RBC 3.73 M/mm3 (3.65-5.03) 09/27/17 11:50 Hgb 10.7 gm/dl (11.8-15.2) L 09/27/17 11:50 Hct 32.1 % (35.5-45.6) L D 09/27/17 11:50 MCV 86 fl (84-94) 09/27/17 11:50 MCH 29 pg (28-32) 09/27/17 11:50 MCHC 33 % (32-34) 09/27/17 11:50 RDW 15.0 % (13.2-15.2) 09/27/17 11:50 Plt Count 253 K/mm3 (140-440) 09/27/17 11:50 Lymph % (Auto) 15.3 % (13.4-35.0) 09/27/17 11:50 [place] % (Auto) 3.2 % (0.0-7.3) 09/27/17 11:50 Eos % (Auto) 0.3 % (0.0-4.3) 09/27/17 11:50 Baso % (Auto) 0.6 % (0.0-1.8) 09/27/17 11:50 Lymph # 1.3 K/mm3 (1.2-5.4) 09/27/17 11:50 [place] # 0.3 K/mm3 (0.0-0.8) 09/27/17 11:50 Eos # 0.0 K/mm3 (0.0-0.4) 09/27/17 11:50 Baso # 0.0 K/mm3 (0.0-0.1) 09/27/17 11:50 Seg Neutrophils % 80.6 % (40.0-70.0) H 09/27/17 11:50 Seg Neutrophils # 6.9 K/mm3 (1.8-7.7) 09/27/17 11:50 POC ABG pH 7.459 (7.35-7.45) H 09/23/17 15:04 POC ABG pCO2 34.8 (35-45) L 09/23/17 15:04 POC ABG pO2 54 (80-105) L 09/23/17 15:04 POC ABG HCO3 24.7 09/23/17 15:04 POC ABG Total CO2 26 09/23/17 15:04 POC ABG O2 Sat 89 09/23/17 15:04 POC ABG Base Excess 1 09/23/17 15:04 FiO2 21 % 09/23/17 15:04 Sodium 134 mmol/L (137-145) L 09/27/17 09:20 Potassium 4.8 mmol/L (3.6-5.0) 09/27/17 09:20 Chloride 96.1 mmol/L (98-107) L 09/27/17 09:20 Carbon Dioxide 25 mmol/L (22-30) 09/27/17 09:20 Anion Gap 18 mmol/L 09/27/17 09:20 BUN 21 mg/dL (9-20) H 09/27/17 09:20 Creatinine 1.5 mg/dL (0.8-1.5) D 09/27/17 09:20 Estimated GFR > 60 ml/min 09/27/17 09:20 BUN/Creatinine Ratio 14 % 09/27/17 09:20 Glucose 139 mg/dL (75-100) H 09/27/17 09:20 POC Glucose 274 (70-105) H 09/27/17 12:18 Calcium 8.0 mg/dL (8.4-10.2) L 09/27/17 09:20 Magnesium 1.70 mg/dL (1.7-2.3) 09/26/17 05:35 Total Creatine Kinase 170 units/L (55-170) 09/23/17 04:10 CK-MB (CK-2) 1.4 ng/mL (0.0-4.0) 09/23/17 04:10 CK-MB (CK-2) Rel Index 0.8 (0-4) 09/23/17 04:10 Troponin T 0.287 ng/mL (0.00-0.029) H* 09/23/17 04:10 NT-Pro-B Natriuret Pep 5093 pg/mL (0-450) H 09/22/17 21:31 Triglycerides 226 mg/dL (2-149) H 09/22/17 21:31 Cholesterol 235 mg/dL (50-199) H 09/22/17 21:31 LDL Cholesterol Direct 164 mg/dL (50-130) H 09/22/17 21:31 HDL Cholesterol 26 mg/dL (40-59) L 09/22/17 21:31 Cholesterol/HDL Ratio 9.03 % 09/22/17 21:31 Vancomycin Trough 46.8 ug/mL (5.0-20.0) H 09/27/17 11:50
--- NOTE | 2017-09-27 16:55 | Consultation ---
History of Present Illness - Reason for Consult Consult date: 09/27/17 bilateral pneumonia, fever Requesting physician: AVTAR FONG - History of Present Illness 42 years old male with history of hypertension, diabetes, CHF; initially admitted on 09/10/17-09/16/17 due to 4-day history of cough, nonproductive, shortness of breath and decreased energy with generalized weakness. Patient was hypoxic in the emergency room and placed on BiPAP and then high flow oxygen. CTA showed bilateral pneumonia. He received antibiotics for pneumonia. 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 For which he was treated with water restriction, and was being, managed by nephrology. He was also found to have CHF with very low EF, and he received cardiology consultation, and was in process of his workup. The patient was improving but was still oxygen dependent , still requiring high flow oxygen. Patient left AMA. Unfortunately, he was readmitted on 09/22/17 due to worsening SOB, productive cough and on/off fever. He did not receive flu shot this season. He reports several coworkers were sick with a bad cold. In the Emergency Room, his temp 99.1, HR 105, R20, O2 93%, BP 143/103. WBC 9.5. Sodium 129. Glucose 256. CXR showed diffuse and partially confluent parenchymal opacities scattered in bilateral lungs. CTA showed extensive bilateral pneumonia with superimposed vascular congestion and bilateral small pleural effusions, midly enlarged right hilar and subcarinal LNs. Microbiology: Blood cultures: 09/22 ngtd 09/10 negative Urine cultures: Respiratory cultures: Current Antimicrobials: Zosyn 09/23 Vanco 09/23 Previous Antimicrobials: Past History Past Medical History: diabetes, heart failure, hypertension Past Surgical History: hernia repair Social history: smoking, alcohol abuse Family history: no significant family history Medications and Allergies Allergies Allergy/AdvReac Type Severity Reaction Status Date / Time No Known Allergies Allergy Verified 09/22/17 18:50 Home Medications Medication Instructions Recorded Confirmed Last Taken Type Furosemide [Lasix] 20 mg PO QDAY #60 tablet 03/09/16 09/22/17 09/11/17 17:50 Rx 20 mg Acetaminophen/Dp-Hydramine 1 each PO PRN 09/12/17 09/22/17 09/11/17 06:00 History [Jayden's Pm Powder Packet] 1 Carvedilol [Coreg] 25 mg PO DAILY 09/13/17 09/22/17 09/08/17 21:00 History 25 Insulin Aspart Protam & Aspart 0 units SQ QAM 09/13/17 09/22/17 09/07/17 08:00 History [NovoLOG Mix 70-30 Flexpen] Levemir 20 units SUB-Q HS 09/13/17 09/22/17 09/07/17 22:00 History Lisinopril [Zestril] 40 mg PO HS 09/13/17 09/22/17 09/08/17 21:00 History amLODIPine [Norvasc] 10 mg PO DAILY 09/13/17 09/22/17 09/08/17 21:00 History Active Meds: Active Medications Acetaminophen (Tylenol) 650 mg PO Q4H PRN PRN Reason: Pain MILD(1-3)/Fever >100.5/[place] Last Admin: 09/27/17 02:47 Dose: 650 mg Albuterol (Proventil) 2.5 mg IH Q4HRT PRN PRN Reason: Shortness Of Breath Last Admin: 09/26/17 20:42 Dose: 2.5 mg Aspirin (Baby Aspirin) 81 mg PO QDAY [facility] Last Admin: 09/27/17 10:40 Dose: 81 mg Bisacodyl (Dulcolax) 10 mg DC QDAY PRN PRN Reason: Constipation unrelieved by MOM Carvedilol (Coreg) 25 mg PO DAILY [facility] Last Admin: 09/27/17 10:40 Dose: 25 mg Dextrose (D50w (25gm) Syringe) 50 ml IV PRN PRN PRN Reason: Hypoglycemia Enoxaparin Sodium (Lovenox) 40 mg SUB-Q QDAY [facility] Last Admin: 09/27/17 10:40 Dose: 40 mg Piperacillin Sod/Tazobactam Sod (Zosyn/Ns 3.375gm/50ml) 3.375 gm in 50 mls @ 100 mls/hr IV Q8HR [facility] PRN Reason: Protocol Last Admin: 09/27/17 14:31 Dose: 100 mls/hr Vancomycin HCl 1,500 mg/ (Sodium Chloride) 515 mls @ 333.333 mls/hr IV Q12H [facility] Last Admin: 09/27/17 10:39 Dose: 333.333 mls/hr Insulin Aspart (Novolog) 0 units SUB-Q ACHS [facility] PRN Reason: Protocol Last Admin: 09/27/17 12:29 Dose: 6 units Insulin Detemir (Levemir) 20 units SUB-Q QHS [facility] Last Admin: 09/26/17 23:30 Dose: 20 units Lisinopril (Zestril) 40 mg PO HS [facility] Last Admin: 09/26/17 23:30 Dose: 40 mg Lorazepam (Ativan) 1 mg IV Q4H PRN PRN Reason: Agitation Last Admin: 09/26/17 11:32 Dose: 1 mg Magnesium Hydroxide (Milk Of Magnesia) 30 ml PO Q4H PRN PRN Reason: Constipation Ondansetron HCl (Zofran) 4 mg IV Q8H PRN PRN Reason: N/V unrelieved by Ronnell Vancomycin HCl (Vancomycin Pharmacy To Dose) 1 each IV PKCONSULT AYALA PRN Reason: Protocol Review of Systems All systems: negative (as per HPI rest neg) Physical Examination - Physical Exam Narrative exam: General appearance: Alert in NAD, conversant Eyes: anicteric sclerae, moist conjunctivae; no lid-lag; PERRLA HENT: Atraumatic; oropharynx clear with moist mucous membranes and no mucosal ulcerations/no oral thrush; normal hard and soft palate. Normal external ears. Neck: Trachea midline; supple, no thyromegaly or lymphadenopathy Lungs: CTA CV: RRR, no murmurs Abdomen: Soft, non-tender; no masses or hepatosplenomegaly Extremities: No peripheral edema or extremity lymphadenopathy Skin: Normal temperature, turgor and texture; no rash, ulcers or subcutaneous nodules Psych: Appropriate affect, alert and oriented to person, place and time. Neuro: alert and oriented x 3. Moving all extermities Lines: No CVL / PICC - Constitutional Vitals: Vital Signs Temp Pulse Resp BP Pulse Ox 98.6 F 102 H 20 114/70 99 09/27/17 08:08 09/27/17 09:54 09/27/17 09:54 09/27/17 08:08 09/27/17 09:54 Temperature -Last 24 Hours Temperature 98.6 F Temperature 98 F Temperature 100.8 F Temperature 102.8 F Temperature 102.8 F Results - Labs CBC & Chem 7: 09/27/17 11:50 09/27/17 09:20 Labs: Abnormal lab results 09/26/17 09/26/17 09/26/17 Range/Units 09:02 12:20 16:39 Hgb (11.8-15.2) gm/dl Hct (35.5-45.6) % Seg Neutrophils % (40.0-70.0) % Sodium (137-145) mmol/L Chloride (98-107) mmol/L BUN (9-20) mg/dL Glucose (75-100) mg/dL POC Glucose 131 H 199 H 209 H (70-105) Calcium (8.4-10.2) mg/dL Vancomycin Trough (5.0-20.0) ug/mL 09/26/17 09/27/17 09/27/17 Range/Units 21:45 07:24 09:20 Hgb 11.0 L (11.8-15.2) gm/dl Hct (35.5-45.6) % Seg Neutrophils % 77.2 H (40.0-70.0) % Sodium (137-145) mmol/L Chloride (98-107) mmol/L BUN (9-20) mg/dL Glucose (75-100) mg/dL POC Glucose 194 H 210 H (70-105) Calcium (8.4-10.2) mg/dL Vancomycin Trough (5.0-20.0) ug/mL 09/27/17 09/27/17 09/27/17 Range/Units 09:20 11:50 11:50 Hgb 10.7 L (11.8-15.2) gm/dl Hct 32.1 L D (35.5-45.6) % Seg Neutrophils % 80.6 H (40.0-70.0) % Sodium 134 L (137-145) mmol/L Chloride 96.1 L (98-107) mmol/L BUN 21 H (9-20) mg/dL Glucose 139 H (75-100) mg/dL POC Glucose (70-105) Calcium 8.0 L (8.4-10.2) mg/dL Vancomycin Trough 46.8 H (5.0-20.0) ug/mL 09/27/17 Range/Units 12:18 Hgb (11.8-15.2) gm/dl Hct (35.5-45.6) % Seg Neutrophils % (40.0-70.0) % Sodium (137-145) mmol/L Chloride (98-107) mmol/L BUN (9-20) mg/dL Glucose (75-100) mg/dL POC Glucose 274 H (70-105) Calcium (8.4-10.2) mg/dL Vancomycin Trough (5.0-20.0) ug/mL Assessment and Plan Assessment: 1) Sepsis: Present on admission, manifested by low grade fever, tachycardia; fever became worse on 09/25. Etiology most likely bilateral pneumonia. 2) Bilateral pneumonia: ? post-influenza pneumonia ? CAP ?HAP on top of CHF exacerbation 3) CHF exaceration 4) Hyponatremia 5) DM-uncontrolled 6) Acute respiratory failure Plan: -follow-up blood cultures -obtain respiratory cultures, procalcitonin, C-reactive protein (CRP) -check influenza antigen PCR in nasopharinx -check Legionella urine antigen, Streptococcus pneumoniae urine antigen -obtain HIV, HIV-viral load -continue zosyn and vanco -add levaquin -add tamiflu -monitor pleural effusions-CTA showed mild ilya effusion Ondina Ho
[2017-09-27] MEDS: TAMIFLU PO SCH (23:08)
[2017-09-27] MEDS: ZESTRIL PO SCH (23:09)
--- NOTE | 2017-09-27 23:22 | Progress Note ---
Assessment and Plan Patient resting on BIPAP.166, rate 16, FIO2 50% . No complaint of chest pain or shortness of breath at this time.O2 saturation 100% at this time. - Patient Problems (1) Bilateral pleural effusion Current Visit: Yes Status: Acute Plan to address problem: Ultrasound of chest not done yet. (2) Bilateral pneumonia Current Visit: Yes Status: Acute Qualifiers: Pneumonia type: due to unspecified organism Lung location: unspecified part of lung Qualified Code(s): J18.9 - Pneumonia, unspecified organism Plan to address problem: Patient is on zosyn and vancomycin. (3) Acute congestive heart failure Current Visit: Yes Status: Acute Qualifiers: Congestive heart failure type: unspecified Qualified Code(s): I50.9 - Heart failure, unspecified Plan to address problem: Management as per primary care and cardiology. (4) Diabetes mellitus type 2, insulin dependent Current Visit: No Status: Acute Plan to address problem: Management as per primary care. (5) Obesity (BMI 30-39.9) Current Visit: No Status: Acute Plan to address problem: Recommend to loose weight. Diet and exercise. (6) Sleep apnea Current Visit: No Status: Acute Plan to address problem: BIPAP 16/6, rate 16, FIO2 50%. Subjective Date of service: 09/27/17 Principal diagnosis: Shortness of breath Interval history: Patient sleeping on BIPAP.16, rate 16,FIO2 50%. . No complaint of chest pain or shortness of breath at this time.O2 saturation 100% at this time. Objective Vital Signs - 12hr 09/27/17 09/27/17 09/27/17 12:21 16:53 19:40 Temperature 97.8 F 98.2 F Pulse Rate 99 H 102 H 110 H Respiratory 20 18 Rate Blood Pressure 152/54 98/66 O2 Sat by Pulse 98 82 L Oximetry 09/27/17 09/27/17 21:02 21:32 Temperature 98.3 F Pulse Rate 96 H 96 H Respiratory 24 32 H Rate Blood Pressure 79/56 O2 Sat by Pulse 92 100 Oximetry Constitutional: no acute distress, alert Eyes: non-icteric ENT: oropharynx moist Neck: supple, no lymphadenopathy Ascultation: Bilateral: diminished breath sounds Cardiovascular: regular rate and rhythm Gastrointestinal: normoactive bowel sounds, soft, non-tender Integumentary: normal Extremities: no cyanosis, no edema Neurologic: normal mental status, non-focal exam, pupils equal and round, CN II- XII normal Psychiatric: mood appropriate CBC and BMP: 09/27/17 11:50 09/27/17 09:20 ABG, PT/INR, D-dimer: ABG POC ABG pH 7.459 (7.35-7.45) H 09/23/17 15:04 POC ABG pCO2 34.8 (35-45) L 09/23/17 15:04 POC ABG pO2 54 (80-105) L 09/23/17 15:04 POC ABG HCO3 24.7 09/23/17 15:04 POC ABG Total CO2 26 09/23/17 15:04 POC ABG O2 Sat 89 09/23/17 15:04 Abnormal lab findings: Abnormal Labs 09/22/17 09/22/17 09/22/17 21:30 21:31 21:31 WBC Hgb Hct RDW 15.3 H [place] % (Auto) 9.6 H Dixon # 0.9 H Seg Neutrophils % 72.0 H Seg Neutrophils # POC ABG pH POC ABG pCO2 POC ABG pO2 Sodium Chloride BUN Creatinine Glucose POC Glucose Calcium Total Creatine Kinase 371 H Troponin T 0.260 H* NT-Pro-B Natriuret Pep 5093 H Triglycerides 226 H Cholesterol 235 H LDL Cholesterol Direct 164 H HDL Cholesterol 26 L Vancomycin Trough 09/22/17 09/22/17 09/23/17 22:54 22:54 04:00 WBC Hgb Hct RDW [place] % (Auto) 11.9 H Dixon # Seg Neutrophils % Seg Neutrophils # POC ABG pH POC ABG pCO2 POC ABG pO2 Sodium 129 L Chloride 91.6 L BUN Creatinine 0.7 L Glucose 256 H POC Glucose Calcium 7.9 L Total Creatine Kinase 211 H Troponin T 0.344 H* D NT-Pro-B Natriuret Pep Triglycerides Cholesterol LDL Cholesterol Direct HDL Cholesterol Vancomycin Trough 09/23/17 09/23/17 09/23/17 04:00 04:10 09:09 WBC Hgb Hct RDW [place] % (Auto) Dixon # Seg Neutrophils % Seg Neutrophils # POC ABG pH POC ABG pCO2 POC ABG pO2 Sodium 136 L D Chloride 95.3 L BUN Creatinine Glucose 181 H POC Glucose 166 H Calcium 7.7 L Total Creatine Kinase Troponin T 0.287 H* NT-Pro-B Natriuret Pep Triglycerides Cholesterol LDL Cholesterol Direct HDL Cholesterol Vancomycin Trough 09/23/17 09/23/17 09/23/17 11:40 13:19 15:04 WBC Hgb Hct RDW [place] % (Auto) Dixon # Seg Neutrophils % Seg Neutrophils # POC ABG pH 7.459 H POC ABG pCO2 34.8 L POC ABG pO2 54 L Sodium Chloride BUN Creatinine Glucose POC Glucose 221 H 267 H Calcium Total Creatine Kinase Troponin T NT-Pro-B Natriuret Pep Triglycerides Cholesterol LDL Cholesterol Direct HDL Cholesterol Vancomycin Trough 09/23/17 09/23/17 09/24/17 15:57 22:07 04:40 WBC Hgb Hct RDW [place] % (Auto) 11.4 H Dixon # Seg Neutrophils % Seg Neutrophils # POC ABG pH POC ABG pCO2 POC ABG pO2 Sodium Chloride BUN Creatinine Glucose POC Glucose 281 H 166 H Calcium Total Creatine Kinase Troponin T NT-Pro-B Natriuret Pep Triglycerides Cholesterol LDL Cholesterol Direct HDL Cholesterol Vancomycin Trough 09/24/17 09/24/17 09/24/17 04:40 08:42 12:17 WBC Hgb Hct RDW [place] % (Auto) Dixon # Seg Neutrophils % Seg Neutrophils # POC ABG pH POC ABG pCO2 POC ABG pO2 Sodium 133 L Chloride 95.6 L BUN Creatinine 0.7 L Glucose 251 H POC Glucose 173 H 209 H Calcium 7.8 L Total Creatine Kinase Troponin T NT-Pro-B Natriuret Pep Triglycerides Cholesterol LDL Cholesterol Direct HDL Cholesterol Vancomycin Trough 09/24/17 09/24/17 09/25/17 16:13 21:21 12:44 WBC Hgb Hct RDW [place] % (Auto) [place] # Seg Neutrophils % Seg Neutrophils # POC ABG pH POC ABG pCO2 POC ABG pO2 Sodium Chloride BUN Creatinine Glucose POC Glucose 248 H 152 H 185 H Calcium Total Creatine Kinase Troponin T NT-Pro-B Natriuret Pep Triglycerides Cholesterol LDL Cholesterol Direct HDL Cholesterol Vancomycin Trough 09/25/17 09/25/17 09/26/17 17:18 23:10 05:35 WBC 15.6 H Hgb Hct RDW [place] % (Auto) Dixon # Seg Neutrophils % 78.5 H Seg Neutrophils # 12.2 H POC ABG pH POC ABG pCO2 POC ABG pO2 Sodium Chloride BUN Creatinine Glucose POC Glucose 186 H 187 H Calcium Total Creatine Kinase Troponin T NT-Pro-B Natriuret Pep Triglycerides Cholesterol LDL Cholesterol Direct HDL Cholesterol Vancomycin Trough 09/26/17 09/26/17 09/26/17 05:35 09:02 12:20 WBC Hgb Hct RDW [place] % (Auto) [place] # Seg Neutrophils % Seg Neutrophils # POC ABG pH POC ABG pCO2 POC ABG pO2 Sodium 133 L Chloride 95.2 L BUN Creatinine 0.7 L Glucose 161 H POC Glucose 131 H 199 H Calcium 8.3 L Total Creatine Kinase Troponin T NT-Pro-B Natriuret Pep Triglycerides Cholesterol LDL Cholesterol Direct HDL Cholesterol Vancomycin Trough 09/26/17 09/26/17 09/27/17 16:39 21:45 07:24 WBC Hgb Hct RDW [place] % (Auto) Dixon # Seg Neutrophils % Seg Neutrophils # POC ABG pH POC ABG pCO2 POC ABG pO2 Sodium Chloride BUN Creatinine Glucose POC Glucose 209 H 194 H 210 H Calcium Total Creatine Kinase Troponin T NT-Pro-B Natriuret Pep Triglycerides Cholesterol LDL Cholesterol Direct HDL Cholesterol Vancomycin Trough 09/27/17 09/27/17 09/27/17 09:20 09:20 11:50 WBC Hgb 11.0 L Hct RDW [place] % (Auto) Dixon # Seg Neutrophils % 77.2 H Seg Neutrophils # POC ABG pH POC ABG pCO2 POC ABG pO2 Sodium 134 L Chloride 96.1 L BUN 21 H Creatinine Glucose 139 H POC Glucose Calcium 8.0 L Total Creatine Kinase Troponin T NT-Pro-B Natriuret Pep Triglycerides Cholesterol LDL Cholesterol Direct HDL Cholesterol Vancomycin Trough 46.8 H 09/27/17 09/27/17 09/27/17 11:50 12:18 17:00 WBC Hgb 10.7 L Hct 32.1 L D RDW [place] % (Auto) Dixon # Seg Neutrophils % 80.6 H Seg Neutrophils # POC ABG pH POC ABG pCO2 POC ABG pO2 Sodium Chloride BUN Creatinine Glucose POC Glucose 274 H 169 H Calcium Total Creatine Kinase Troponin T NT-Pro-B Natriuret Pep Triglycerides Cholesterol LDL Cholesterol Direct HDL Cholesterol Vancomycin Trough Chest x-ray: report reviewed (Mild cardiomegaly, Bilateral patchy infiltrates.) , image reviewed
[2017-09-27] MEDS: LEVEMIR SUB-Q SCH (23:57)
[2017-09-28] MEDS: ZOSYN/NS 3.375GM/50ML 3.375 GM/50 ML BAG IV SCH (05:33)
[2017-09-28 07:45] LABS: Basophils % (Auto) 0.8 % (0.0-1.8); Eosinophils # (Auto) 0.1 K/mm3 (0.0-0.4); Eosinophils % (Auto) 1.7 % (0.0-4.3); Hematocrit 29.6 % (35.5-45.6); Hemoglobin 9.9 gm/dl (11.8-15.2); Lymphocytes % (Auto) 15.6 % (13.4-35.0); Mean Corpuscular HGB Conc 33 % (32-34); Mean Corpuscular Hemoglobin 29 pg (28-32); Mean Corpuscular Volume 86 fl (84-94); Monocytes # (Auto) 0.3 K/mm3 (0.0-0.8); Monocytes % (Auto) 5.7 % (0.0-7.3); Platelet Count 256 K/mm3 (140-440); Red Blood Count 3.44 M/mm3 (3.65-5.03)
[2017-09-28 07:56] LABS: Calcium 7.5 mg/dL (8.4-10.2)
[2017-09-28] MEDS: NOVOLOG SUB-Q SCH ×4 (08:00→22:00)
[2017-09-28] MEDS: PROVENTIL IH PRN (08:40)
[2017-09-28] MEDS: COREG PO SCH ×2 (09:30→22:00)
--- NOTE | 2017-09-28 10:31 | Progress Note ---
Assessment and Plan Assessment: 1) Sepsis: Present on admission, better. Etiology most likely bilateral pneumonia. -blood cultures 09/22 ngtd -CRP = 34.90 -HIV non reactive 2) Bilateral pneumonia: ? post-influenza pneumonia ? CAP ?HAP on top of CHF exacerbation 3) CHF exaceration 4) Hyponatremia 5) DM-uncontrolled 6) Acute respiratory failure 7)ARF; -Creatinine = 3.1 Plan: -obtain respiratory cultures, ordered and needs to be collected. -follow up influenza antigen PCR in nasopharinx -follow up Legionella urine antigen, Streptococcus pneumoniae urine antigen -continue levaquin, day 2 -stop vanco and zosyn -add zyvox 600 q 12 hrs -continue tamiflu day 2 of 5 -monitor pleural effusions-CTA showed mild ilya effusion -monitor creatinine Nicol Jauregui NP-C for Dr. Ondina Arndt MD Infectious Diseases Specialist [facility] ([facility]) M [phone] O [phone] Subjective Date of service: 09/28/17 Principal diagnosis: Shortness of breath Interval history: Blood cultures: 09/22 ngtd 09/10 negative Urine cultures: Respiratory cultures: Current Antimicrobials: Zosyn 09/23 Vanco 09/23 Tamiflu 09/27 Previous Antimicrobials: Objective - Exam Narrative Exam: General appearance: Alert in NAD, conversant Eyes: anicteric sclerae, moist conjunctivae; no lid-lag; PERRLA HENT: Atraumatic; oropharynx clear with moist mucous membranes and no mucosal ulcerations/no oral thrush; normal hard and soft palate. Normal external ears. Neck: Trachea midline; supple, no thyromegaly or lymphadenopathy Lungs: diminish in bilateral lung bases CV: RRR, no murmurs Abdomen: Soft, non-tender; +BS x 4 Extremities: No peripheral edema or extremity lymphadenopathy Skin: Normal temperature, turgor and texture; no rash, ulcers or subcutaneous nodules Psych: Appropriate affect, cooperative Neuro: alert and oriented x 3. Moving all extermities Lines: No CVL / PICC - Constitutional Vitals: Vital Signs Temp Pulse Resp BP Pulse Ox 98.4 F 95 H 24 86/58 100 09/28/17 05:00 09/28/17 08:17 09/28/17 08:17 09/28/17 06:44 09/28/17 08:20 Temperature -Last 24 Hours Temperature 98.4 F Temperature 97.9 F Temperature 98.3 F Temperature 98.2 F Temperature 97.8 F - Labs CBC & Chem 7: 09/28/17 07:00 09/28/17 07:00 Labs: Abnormal lab results 09/27/17 09/27/17 09/27/17 Range/Units 11:50 11:50 12:18 RBC (3.65-5.03) M/mm3 Hgb 10.7 L (11.8-15.2) gm/dl Hct 32.1 L D (35.5-45.6) % Lymph # (1.2-5.4) K/mm3 Seg Neutrophils % 80.6 H (40.0-70.0) % Sodium (137-145) mmol/L Chloride (98-107) mmol/L Carbon Dioxide (22-30) mmol/L BUN (9-20) mg/dL Creatinine (0.8-1.5) mg/dL Glucose (75-100) mg/dL POC Glucose 274 H (70-105) Calcium (8.4-10.2) mg/dL C-Reactive Protein (0.00-1.30) mg/dL Vancomycin Trough 46.8 H (5.0-20.0) ug/mL 09/27/17 09/27/17 09/27/17 Range/Units 17:00 21:18 23:28 RBC (3.65-5.03) M/mm3 Hgb (11.8-15.2) gm/dl Hct (35.5-45.6) % Lymph # (1.2-5.4) K/mm3 Seg Neutrophils % (40.0-70.0) % Sodium (137-145) mmol/L Chloride (98-107) mmol/L Carbon Dioxide (22-30) mmol/L BUN (9-20) mg/dL Creatinine (0.8-1.5) mg/dL Glucose (75-100) mg/dL POC Glucose 169 H 251 H (70-105) Calcium (8.4-10.2) mg/dL C-Reactive Protein 34.90 H (0.00-1.30) mg/dL Vancomycin Trough (5.0-20.0) ug/mL 09/27/17 09/28/17 09/28/17 Range/Units 23:49 07:00 07:00 RBC 3.44 L (3.65-5.03) M/mm3 Hgb 9.9 L (11.8-15.2) gm/dl Hct 29.6 L (35.5-45.6) % Lymph # 1.0 L (1.2-5.4) K/mm3 Seg Neutrophils % 76.2 H (40.0-70.0) % Sodium 128 L (137-145) mmol/L Chloride 92.1 L (98-107) mmol/L Carbon Dioxide 20 L (22-30) mmol/L BUN 40 H (9-20) mg/dL Creatinine 3.1 H D (0.8-1.5) mg/dL Glucose 199 H (75-100) mg/dL POC Glucose 233 H (70-105) Calcium 7.5 L (8.4-10.2) mg/dL C-Reactive Protein (0.00-1.30) mg/dL Vancomycin Trough (5.0-20.0) ug/mL
[2017-09-28] MEDS: LOVENOX SUB-Q SCH (10:48)
[2017-09-28] MEDS: BABY ASPIRIN PO SCH (10:48)
[2017-09-28] MEDS: TAMIFLU PO SCH ×2 (10:51→22:51)
[2017-09-28] MEDS: VANCOMYCIN 1,500 MG in NACL 0.9% 500 ML 500 ML IV SCH (10:52)
--- NOTE | 2017-09-28 12:21 | Progress Note ---
Assessment and Plan Pneumonia Chronic systolic heart failure Cardiomyopathy, etiology unclear EF 10-15% on echocardiogram. Diabetes Hypertension Hyperlipidemia Subjective Date of service: 09/28/17 Principal diagnosis: Shortness of breath Interval history: Stress test cancelled secondary to shortness of breath. Objective Vital Signs Temp Pulse Resp BP BP Pulse Ox 09/28/17 08:20 100 09/28/17 08:17 95 H 24 100 09/28/17 06:44 92 H 20 86/58 97 09/28/17 05:00 98.4 F 89 22 77/45 100 09/28/17 03:18 20 09/28/17 01:10 97.9 F 92 H 24 142/78 93 09/27/17 21:32 96 H 32 H 100 09/27/17 21:02 98.3 F 96 H 24 79/56 92 09/27/17 19:40 110 H 09/27/17 16:53 98.2 F 102 H 18 98/66 82 L 09/27/17 12:21 97.8 F 99 H 20 152/54 98 - Physical Examination General: No Apparent Distress HEENT: Positive: PERRL Cardiac: Positive: Reg Rate and Rhythm Neuro: Positive: Grossly Intact Abdomen: Positive: Soft Skin: Positive: Clear Extremities: Absent: edema - Labs and Meds CBC 09/27/17 09/28/17 Range/Units 11:50 07:00 WBC 8.5 6.2 (4.5-11.0) K/mm3 RBC 3.73 3.44 L (3.65-5.03) M/mm3 Hgb 10.7 L 9.9 L (11.8-15.2) gm/dl Hct 32.1 L D 29.6 L (35.5-45.6) % Plt Count 253 256 (140-440) K/mm3 Lymph # 1.3 1.0 L (1.2-5.4) K/mm3 [place] # 0.3 0.3 (0.0-0.8) K/mm3 Eos # 0.0 0.1 (0.0-0.4) K/mm3 Baso # 0.0 0.0 (0.0-0.1) K/mm3 Comprehensive Metabolic Panel 09/28/17 Range/Units 07:00 Sodium 128 L (137-145) mmol/L Potassium 4.5 (3.6-5.0) mmol/L Chloride 92.1 L (98-107) mmol/L Carbon Dioxide 20 L (22-30) mmol/L BUN 40 H (9-20) mg/dL Creatinine 3.1 H D (0.8-1.5) mg/dL Glucose 199 H (75-100) mg/dL Calcium 7.5 L (8.4-10.2) mg/dL - Imaging and Cardiology EKG: image reviewed
--- NOTE | 2017-09-28 12:48 | Progress Note ---
Assessment and Plan Acute hypoxemic respiratory failure Bilateral pneumonia vs Pulmonary Edema Hyponatremia Diabetes, poorly controlled Morbid obesity Systolic heart failure, EF 15% Tobacco abuse disorder (Suspect significantly CT chest changes and mediastinopathy related to chronic pulmonary edema from decompensated CHF) - empiric antibiotics per ID recs; will send sputum for C&S - risks outweigh likely benefits from bronchoscopy at this time - continue supplemental oxygen to keep O2 sats>90% - continue heart failure measures, fluid and free water restriction - milrinone titration per cardiology - continue SSI for glycemic control - VTE prophylaxis - Smoking cessation counselling done at bedside again - continue nicotine withdrawal precautions - Outpatient sleep study ...36' Subjective Date of service: 09/28/17 Principal diagnosis: Acute Hypoxemic Resp Failure; Bilateral Pulmonary Infiltrates; HFrEF Interval history: Patient is seen today for: Acute Hypoxemic Resp Failure; Bilateral Pulmonary Infiltrates; HFrEF Seen and examined at bedside; 24hour events reviewed; nursing and respiratory care staff consulted; no adverse overnight events reported to me; resting in bed ; feels better; on 2L NC; denies acute chest pains; + cough no hemoptysis; No N/ V/F/C Objective Vital Signs - 12hr 09/28/17 09/28/17 09/28/17 01:10 03:18 05:00 Temperature 97.9 F 98.4 F Pulse Rate 92 H 89 Respiratory 24 20 22 Rate Blood Pressure 77/45 Blood Pressure 142/78 [Left] O2 Sat by Pulse 93 100 Oximetry 09/28/17 09/28/17 09/28/17 06:44 08:17 08:20 Temperature Pulse Rate 92 H 95 H Respiratory 20 24 Rate Blood Pressure Blood Pressure 86/58 [Left] O2 Sat by Pulse 97 100 100 Oximetry Constitutional: no acute distress, alert Eyes: non-icteric ENT: oropharynx moist, other (No thyromegaly) Neck: supple, no lymphadenopathy, no JVD Effort: mildly labored Ascultation: Bilateral: diminished breath sounds, rales (bases) Percussion: Bilateral: not dull Cardiovascular: regular rate and rhythm, murmur noted, other (no rubs) Gastrointestinal: normoactive bowel sounds, soft, non-tender, non-distended, other (no palpable HSM) Integumentary: normal Extremities: no cyanosis, pulses normal, no ischemia or petechiae, edema Neurologic: normal mental status, non-focal exam, pupils equal and round, CN II- XII normal Psychiatric: mood appropriate, affect normal CBC and BMP: 09/28/17 07:00 09/28/17 07:00 ABG, PT/INR, D-dimer: ABG POC ABG pH 7.459 (7.35-7.45) H 09/23/17 15:04 POC ABG pCO2 34.8 (35-45) L 09/23/17 15:04 POC ABG pO2 54 (80-105) L 09/23/17 15:04 POC ABG HCO3 24.7 09/23/17 15:04 POC ABG Total CO2 26 09/23/17 15:04 POC ABG O2 Sat 89 09/23/17 15:04 Abnormal lab findings: Abnormal Labs 09/22/17 09/22/17 09/22/17 21:30 21:31 21:31 WBC RBC Hgb Hct RDW 15.3 H [place] % (Auto) 9.6 H Lymph # [place] # 0.9 H Seg Neutrophils % 72.0 H Seg Neutrophils # POC ABG pH POC ABG pCO2 POC ABG pO2 Sodium Chloride Carbon Dioxide BUN Creatinine Glucose POC Glucose Calcium Total Creatine Kinase 371 H Troponin T 0.260 H* C-Reactive Protein NT-Pro-B Natriuret Pep 5093 H Triglycerides 226 H Cholesterol 235 H LDL Cholesterol Direct 164 H HDL Cholesterol 26 L Vancomycin Trough 09/22/17 09/22/17 09/23/17 22:54 22:54 04:00 WBC RBC Hgb Hct RDW [place] % (Auto) 11.9 H Lymph # [place] # Seg Neutrophils % Seg Neutrophils # POC ABG pH POC ABG pCO2 POC ABG pO2 Sodium 129 L Chloride 91.6 L Carbon Dioxide BUN Creatinine 0.7 L Glucose 256 H POC Glucose Calcium 7.9 L Total Creatine Kinase 211 H Troponin T 0.344 H* D C-Reactive Protein NT-Pro-B Natriuret Pep Triglycerides Cholesterol LDL Cholesterol Direct HDL Cholesterol Vancomycin Trough 09/23/17 09/23/17 09/23/17 04:00 04:10 09:09 WBC RBC Hgb Hct RDW [place] % (Auto) Lymph # [place] # Seg Neutrophils % Seg Neutrophils # POC ABG pH POC ABG pCO2 POC ABG pO2 Sodium 136 L D Chloride 95.3 L Carbon Dioxide BUN Creatinine Glucose 181 H POC Glucose 166 H Calcium 7.7 L Total Creatine Kinase Troponin T 0.287 H* C-Reactive Protein NT-Pro-B Natriuret Pep Triglycerides Cholesterol LDL Cholesterol Direct HDL Cholesterol Vancomycin Trough 09/23/17 09/23/17 09/23/17 11:40 13:19 15:04 WBC RBC Hgb Hct RDW [place] % (Auto) Lymph # [place] # Seg Neutrophils % Seg Neutrophils # POC ABG pH 7.459 H POC ABG pCO2 34.8 L POC ABG pO2 54 L Sodium Chloride Carbon Dioxide BUN Creatinine Glucose POC Glucose 221 H 267 H Calcium Total Creatine Kinase Troponin T C-Reactive Protein NT-Pro-B Natriuret Pep Triglycerides Cholesterol LDL Cholesterol Direct HDL Cholesterol Vancomycin Trough 09/23/17 09/23/17 09/24/17 15:57 22:07 04:40 WBC RBC Hgb Hct RDW [place] % (Auto) 11.4 H Lymph # [place] # Seg Neutrophils % Seg Neutrophils # POC ABG pH POC ABG pCO2 POC ABG pO2 Sodium Chloride Carbon Dioxide BUN Creatinine Glucose POC Glucose 281 H 166 H Calcium Total Creatine Kinase Troponin T C-Reactive Protein NT-Pro-B Natriuret Pep Triglycerides Cholesterol LDL Cholesterol Direct HDL Cholesterol Vancomycin Trough 09/24/17 09/24/17 09/24/17 04:40 08:42 12:17 WBC RBC Hgb Hct RDW [place] % (Auto) Lymph # [place] # Seg Neutrophils % Seg Neutrophils # POC ABG pH POC ABG pCO2 POC ABG pO2 Sodium 133 L Chloride 95.6 L Carbon Dioxide BUN Creatinine 0.7 L Glucose 251 H POC Glucose 173 H 209 H Calcium 7.8 L Total Creatine Kinase Troponin T C-Reactive Protein NT-Pro-B Natriuret Pep Triglycerides Cholesterol LDL Cholesterol Direct HDL Cholesterol Vancomycin Trough 09/24/17 09/24/17 09/25/17 16:13 21:21 12:44 WBC RBC Hgb Hct RDW [place] % (Auto) Lymph # [place] # Seg Neutrophils % Seg Neutrophils # POC ABG pH POC ABG pCO2 POC ABG pO2 Sodium Chloride Carbon Dioxide BUN Creatinine Glucose POC Glucose 248 H 152 H 185 H Calcium Total Creatine Kinase Troponin T C-Reactive Protein NT-Pro-B Natriuret Pep Triglycerides Cholesterol LDL Cholesterol Direct HDL Cholesterol Vancomycin Trough 09/25/17 09/25/17 09/26/17 17:18 23:10 05:35 WBC 15.6 H RBC Hgb Hct RDW [place] % (Auto) Lymph # [place] # Seg Neutrophils % 78.5 H Seg Neutrophils # 12.2 H POC ABG pH POC ABG pCO2 POC ABG pO2 Sodium Chloride Carbon Dioxide BUN Creatinine Glucose POC Glucose 186 H 187 H Calcium Total Creatine Kinase Troponin T C-Reactive Protein NT-Pro-B Natriuret Pep Triglycerides Cholesterol LDL Cholesterol Direct HDL Cholesterol Vancomycin Trough 09/26/17 09/26/17 09/26/17 05:35 09:02 12:20 WBC RBC Hgb Hct RDW [place] % (Auto) Lymph # [place] # Seg Neutrophils % Seg Neutrophils # POC ABG pH POC ABG pCO2 POC ABG pO2 Sodium 133 L Chloride 95.2 L Carbon Dioxide BUN Creatinine 0.7 L Glucose 161 H POC Glucose 131 H 199 H Calcium 8.3 L Total Creatine Kinase Troponin T C-Reactive Protein NT-Pro-B Natriuret Pep Triglycerides Cholesterol LDL Cholesterol Direct HDL Cholesterol Vancomycin Trough 09/26/17 09/26/17 09/27/17 16:39 21:45 07:24 WBC RBC Hgb Hct RDW [place] % (Auto) Lymph # [place] # Seg Neutrophils % Seg Neutrophils # POC ABG pH POC ABG pCO2 POC ABG pO2 Sodium Chloride Carbon Dioxide BUN Creatinine Glucose POC Glucose 209 H 194 H 210 H Calcium Total Creatine Kinase Troponin T C-Reactive Protein NT-Pro-B Natriuret Pep Triglycerides Cholesterol LDL Cholesterol Direct HDL Cholesterol Vancomycin Trough 09/27/17 09/27/17 09/27/17 09:20 09:20 11:50 WBC RBC Hgb 11.0 L Hct RDW [place] % (Auto) Lymph # [place] # Seg Neutrophils % 77.2 H Seg Neutrophils # POC ABG pH POC ABG pCO2 POC ABG pO2 Sodium 134 L Chloride 96.1 L Carbon Dioxide BUN 21 H Creatinine Glucose 139 H POC Glucose Calcium 8.0 L Total Creatine Kinase Troponin T C-Reactive Protein NT-Pro-B Natriuret Pep Triglycerides Cholesterol LDL Cholesterol Direct HDL Cholesterol Vancomycin Trough 46.8 H 09/27/17 09/27/17 09/27/17 11:50 12:18 17:00 WBC RBC Hgb 10.7 L Hct 32.1 L D RDW [place] % (Auto) Lymph # [place] # Seg Neutrophils % 80.6 H Seg Neutrophils # POC ABG pH POC ABG pCO2 POC ABG pO2 Sodium Chloride Carbon Dioxide BUN Creatinine Glucose POC Glucose 274 H 169 H Calcium Total Creatine Kinase Troponin T C-Reactive Protein NT-Pro-B Natriuret Pep Triglycerides Cholesterol LDL Cholesterol Direct HDL Cholesterol Vancomycin Trough 09/27/17 09/27/17 09/27/17 21:18 23:28 23:49 WBC RBC Hgb Hct RDW [place] % (Auto) Lymph # [place] # Seg Neutrophils % Seg Neutrophils # POC ABG pH POC ABG pCO2 POC ABG pO2 Sodium Chloride Carbon Dioxide BUN Creatinine Glucose POC Glucose 251 H 233 H Calcium Total Creatine Kinase Troponin T C-Reactive Protein 34.90 H NT-Pro-B Natriuret Pep Triglycerides Cholesterol LDL Cholesterol Direct HDL Cholesterol Vancomycin Trough 09/28/17 09/28/17 07:00 07:00 WBC RBC 3.44 L Hgb 9.9 L Hct 29.6 L RDW [place] % (Auto) Lymph # 1.0 L [place] # Seg Neutrophils % 76.2 H Seg Neutrophils # POC ABG pH POC ABG pCO2 POC ABG pO2 Sodium 128 L Chloride 92.1 L Carbon Dioxide 20 L BUN 40 H Creatinine 3.1 H D Glucose 199 H POC Glucose Calcium 7.5 L Total Creatine Kinase Troponin T C-Reactive Protein NT-Pro-B Natriuret Pep Triglycerides Cholesterol LDL Cholesterol Direct HDL Cholesterol Vancomycin Trough CT scan - chest: image reviewed (scattered bilateral infiltrates with some cosolidative areas likely related to chronic pulmonary edema)
[2017-09-28] MEDS: LEVAQUIN PO SCH (13:52)
[2017-09-28] MEDS: ZYVOX PO SCH ×2 (16:55→22:50)
--- NOTE | 2017-09-28 17:25 | Progress Note ---
Assessment and Plan Assessment and plan: This is a 42-year-old man with a history of hypertension, diabetes, CHF was left AMA from the hospital on September 16 where was treated for pneumonia. State he continues to have shortness of breath, generalized weakness. He has been home over the last 4 days, unable to do much of his ADLs. He complained of blurred vision and the at the stop several times during the interview, seem as if he is trying to find words to express himself. Acute hypoxic respiratory failure - ON BIPAP Bilateral pneumonia - Worsening bilateral infiltrates - On IV antibiotics - Pulmonary consult appreciated - Patient's spiking fever and leukocytosis subsided, ID consult appreciated Cardiomyopathy - EF of 10-15%, systolic dysfunction - continue with CHF medications - Cardiology consulted - Lexiscan stress test to be done once stable. DM with hyperglycemia - SSI and basal insulin DVT prophylaxis - On lovenox - patient is not stable enough to transfer to [facility]. History Interval history: Patient was seen and evaluated this morning, no chest pain. Patient is on non rebreather mask. Hospitalist Physical - Physical exam Narrative exam: Not in cardiopulmonary distress. The patient is obese. Vital signs as documented. Head exam is unremarkable. No scleral icterus . Neck is without jugular venous distension, thyromegaly, or carotid bruits. Lungs decrease airentry . Cardiac exam reveals regular rate and Rhythm. First and second heart sounds normal. No murmurs, rubs or gallops. Abdominal exam reveals normal bowel sounds, no masses, no organomegaly and no aortic enlargement. Extremities are nonedematous and both femoral and pedal pulses are normal. 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 No focal weakness. - Constitutional Vitals: Temp Pulse Resp BP Pulse Ox 98.4 F 95 H 24 86/58 100 09/28/17 05:00 09/28/17 08:17 09/28/17 08:17 09/28/17 06:44 09/28/17 08:20 General appearance: Present: no acute distress Results - Labs CBC & Chem 7: 09/28/17 07:00 09/28/17 07:00 Labs: Laboratory Last Values WBC 6.2 K/mm3 (4.5-11.0) 09/28/17 07:00 RBC 3.44 M/mm3 (3.65-5.03) L 09/28/17 07:00 Hgb 9.9 gm/dl (11.8-15.2) L 09/28/17 07:00 Hct 29.6 % (35.5-45.6) L 09/28/17 07:00 MCV 86 fl (84-94) 09/28/17 07:00 MCH 29 pg (28-32) 09/28/17 07:00 MCHC 33 % (32-34) 09/28/17 07:00 RDW 15.0 % (13.2-15.2) 09/28/17 07:00 Plt Count 256 K/mm3 (140-440) 09/28/17 07:00 Lymph % (Auto) 15.6 % (13.4-35.0) 09/28/17 07:00 [place] % (Auto) 5.7 % (0.0-7.3) 09/28/17 07:00 Eos % (Auto) 1.7 % (0.0-4.3) 09/28/17 07:00 Baso % (Auto) 0.8 % (0.0-1.8) 09/28/17 07:00 Lymph # 1.0 K/mm3 (1.2-5.4) L 09/28/17 07:00 [place] # 0.3 K/mm3 (0.0-0.8) 09/28/17 07:00 Eos # 0.1 K/mm3 (0.0-0.4) 09/28/17 07:00 Baso # 0.0 K/mm3 (0.0-0.1) 09/28/17 07:00 Seg Neutrophils % 76.2 % (40.0-70.0) H 09/28/17 07:00 Seg Neutrophils # 4.7 K/mm3 (1.8-7.7) 09/28/17 07:00 POC ABG pH 7.459 (7.35-7.45) H 09/23/17 15:04 POC ABG pCO2 34.8 (35-45) L 09/23/17 15:04 POC ABG pO2 54 (80-105) L 09/23/17 15:04 POC ABG HCO3 24.7 09/23/17 15:04 POC ABG Total CO2 26 09/23/17 15:04 POC ABG O2 Sat 89 09/23/17 15:04 POC ABG Base Excess 1 09/23/17 15:04 FiO2 21 % 09/23/17 15:04 Sodium 128 mmol/L (137-145) L 09/28/17 07:00 Potassium 4.5 mmol/L (3.6-5.0) 09/28/17 07:00 Chloride 92.1 mmol/L (98-107) L 09/28/17 07:00 Carbon Dioxide 20 mmol/L (22-30) L 09/28/17 07:00 Anion Gap 20 mmol/L 09/28/17 07:00 BUN 40 mg/dL (9-20) H 09/28/17 07:00 Creatinine 3.1 mg/dL (0.8-1.5) H D 09/28/17 07:00 Estimated GFR 27 ml/min 09/28/17 07:00 BUN/Creatinine Ratio 13 % 09/28/17 07:00 Glucose 199 mg/dL (75-100) H 09/28/17 07:00 POC Glucose 233 (70-105) H 09/27/17 23:49 Calcium 7.5 mg/dL (8.4-10.2) L 09/28/17 07:00 Magnesium 1.70 mg/dL (1.7-2.3) 09/26/17 05:35 Total Creatine Kinase 170 units/L (55-170) 09/23/17 04:10 CK-MB (CK-2) 1.4 ng/mL (0.0-4.0) 09/23/17 04:10 CK-MB (CK-2) Rel Index 0.8 (0-4) 09/23/17 04:10 Troponin T 0.287 ng/mL (0.00-0.029) H* 09/23/17 04:10 C-Reactive Protein 34.90 mg/dL (0.00-1.30) H 09/27/17 21:18 NT-Pro-B Natriuret Pep 5093 pg/mL (0-450) H 09/22/17 21:31 Triglycerides 226 mg/dL (2-149) H 09/22/17 21:31 Cholesterol 235 mg/dL (50-199) H 09/22/17 21:31 LDL Cholesterol Direct 164 mg/dL (50-130) H 09/22/17 21:31 HDL Cholesterol 26 mg/dL (40-59) L 09/22/17 21:31 Cholesterol/HDL Ratio 9.03 % 09/22/17 21:31 Vancomycin Trough 36.3 ug/mL (5.0-20.0) H 09/28/17 07:00 HIV 1&2 Antibody Rapid Non react (Non React) 09/27/17 21:18 HIV P24 Antigen Non react (Non React) 09/27/17 21:18
[2017-09-28] MEDS: TUMS PO PRN ×2 (18:20→22:51)
[2017-09-28] MEDS: BIDIL 20/37.5MG PO SCH (22:00)
[2017-09-28] MEDS: LEVEMIR SUB-Q SCH (22:53)
[2017-09-28] MEDS: TYLENOL PO PRN (23:24)
[2017-09-29] MEDS: TUMS PO PRN ×3 (03:52→23:16)
[2017-09-29 05:52] LABS: Basophils # (Auto) 0.1 K/mm3 (0.0-0.1); Basophils % (Auto) 1.3 % (0.0-1.8); Eosinophils # (Auto) 0.2 K/mm3 (0.0-0.4); Eosinophils % (Auto) 3.3 % (0.0-4.3); Hematocrit 34.5 % (35.5-45.6); Hemoglobin 11.4 gm/dl (11.8-15.2); Lymphocytes # (Auto) 0.5 K/mm3 (1.2-5.4); Lymphocytes % (Auto) 10.5 % (13.4-35.0); Mean Corpuscular HGB Conc 33 % (32-34); Mean Corpuscular Hemoglobin 28 pg (28-32); Mean Corpuscular Volume 85 fl (84-94); Monocytes # (Auto) 0.5 K/mm3 (0.0-0.8); Monocytes % (Auto) 9.1 % (0.0-7.3); Platelet Count 313 K/mm3 (140-440); Red Blood Count 4.06 M/mm3 (3.65-5.03); Red Cell Distribution Width 14.7 % (13.2-15.2)
[2017-09-29] MEDS: BIDIL 20/37.5MG PO SCH ×3 (06:00→23:10)
[2017-09-29 07:25] LABS: Calcium 8.4 mg/dL (8.4-10.2)
[2017-09-29] MEDS: NOVOLOG SUB-Q SCH ×4 (08:00→23:12)
--- NOTE | 2017-09-29 09:53 | Progress Note ---
Assessment and Plan Assessment: 1) Sepsis: Present on admission, better. Etiology most likely bilateral pneumonia. -blood cultures 09/22 ngtd -CRP = 34.90 -HIV non reactive 2) Bilateral pneumonia: ? post-influenza pneumonia ? CAP ?HAP on top of CHF exacerbation 3) CHF exaceration 4) Hyponatremia 5) DM-uncontrolled 6) Acute respiratory failure 7)ARF; -Creatinine = 3.8 Plan: -follow up respiratory cultures, ordered and needs to be collected. spoke with nurse -follow up influenza antigen PCR in nasopharinx, ordered and to be collected, spoke with nurse -follow up Legionella urine antigen, Streptococcus pneumoniae urine antigen -continue zyvox 600 q 12 hrs day 2 and levaquin, day 3 renally dosed -continue tamiflu day 3 of 5 -monitor pleural effusions-CTA showed mild ilya effusion -monitor creatinine -renal consult appreciated Nicol Jauregui, DRIER AND GRINDER TENDER-C for Dr. Ondina Arndt MD Infectious Diseases Specialist [facility] [phone] O [phone] Subjective Date of service: 09/29/17 Principal diagnosis: Acute Hypoxemic Resp Failure; Bilateral Pulmonary Infiltrates; HFrEF Interval history: I am having difficulty breathing sometimes, no fever Microbiology: Blood cultures: 09/22 ngtd 09/10 negative Urine cultures: Respiratory cultures: Current Antimicrobials: Zosyn 09/23 Vanco 09/23 Tamiflu 09/27 Previous Antimicrobials: Objective - Exam Narrative Exam: General appearance: Alert in NAD, conversant Eyes: anicteric sclerae, moist conjunctivae; no lid-lag; PERRLA HENT: Atraumatic; oropharynx clear with moist mucous membranes and no mucosal ulcerations/no oral thrush; normal hard and soft palate. Normal external ears. Neck: Trachea midline; supple, no thyromegaly or lymphadenopathy Lungs: diminish in bilateral lung bases, SOB CV: RRR, no murmurs Abdomen: Soft, non-tender; +BS x 4 Extremities: No peripheral edema or extremity lymphadenopathy Skin: Normal temperature, turgor and texture; no rash, ulcers or subcutaneous nodules Psych: Appropriate affect, cooperative Neuro: alert and oriented x 3. Moving all extermities Lines: No CVL / PICC - Constitutional Vitals: Vital Signs Temp Pulse Resp BP Pulse Ox 97.9 F 98 H 22 117/79 96 09/29/17 07:47 09/29/17 07:47 09/29/17 07:47 09/29/17 07:47 09/29/17 09:16 Temperature -Last 24 Hours Temperature 97.9 F Temperature 97.8 F Temperature 97.5 F - Labs CBC & Chem 7: 09/29/17 05:20 09/29/17 05:20 Labs: Abnormal lab results 09/28/17 09/28/17 09/28/17 Range/Units 07:00 08:03 13:31 Hgb (11.8-15.2) gm/dl Hct (35.5-45.6) % Lymph % (Auto) (13.4-35.0) % [place] % (Auto) (0.0-7.3) % Lymph # (1.2-5.4) K/mm3 Seg Neutrophils % (40.0-70.0) % Sodium (137-145) mmol/L Chloride (98-107) mmol/L Carbon Dioxide (22-30) mmol/L BUN (9-20) mg/dL Creatinine (0.8-1.5) mg/dL Glucose (75-100) mg/dL POC Glucose 165 H 237 H (70-105) Vancomycin Trough 36.3 H (5.0-20.0) ug/mL 09/28/17 09/28/17 09/29/17 Range/Units 16:20 22:12 05:20 Hgb 11.4 L (11.8-15.2) gm/dl Hct 34.5 L (35.5-45.6) % Lymph % (Auto) 10.5 L (13.4-35.0) % [place] % (Auto) 9.1 H (0.0-7.3) % Lymph # 0.5 L (1.2-5.4) K/mm3 Seg Neutrophils % 75.8 H (40.0-70.0) % Sodium (137-145) mmol/L Chloride (98-107) mmol/L Carbon Dioxide (22-30) mmol/L BUN (9-20) mg/dL Creatinine (0.8-1.5) mg/dL Glucose (75-100) mg/dL POC Glucose 323 H 164 H (70-105) Vancomycin Trough (5.0-20.0) ug/mL 09/29/17 Range/Units 05:20 Hgb (11.8-15.2) gm/dl Hct (35.5-45.6) % Lymph % (Auto) (13.4-35.0) % [place] % (Auto) (0.0-7.3) % Lymph # (1.2-5.4) K/mm3 Seg Neutrophils % (40.0-70.0) % Sodium 128 L (137-145) mmol/L Chloride 91.6 L (98-107) mmol/L Carbon Dioxide 21 L (22-30) mmol/L BUN 51 H (9-20) mg/dL Creatinine 3.8 H (0.8-1.5) mg/dL Glucose 161 H (75-100) mg/dL POC Glucose (70-105) Vancomycin Trough (5.0-20.0) ug/mL
[2017-09-29] MEDS: ZYVOX PO SCH ×2 (10:37→23:10)
[2017-09-29] MEDS: COREG PO SCH ×2 (10:38→23:11)
[2017-09-29] MEDS: BABY ASPIRIN PO SCH (10:38)
[2017-09-29] MEDS: LOVENOX SUB-Q SCH (10:39)
--- NOTE | 2017-09-29 11:31 | Progress Note ---
Assessment and Plan Assessment and plan: Acute hypoxic respiratory failure - BIPAP as clinically indicated -Etiology secondary to bilateral pneumonia Acute Renal failure -Etiology, likely secondary to LEÓN from ATN/sepsis -Nephrology consultation. Sepsis -Present on admission. -Etiology secondary to pneumonia. -Blood cultures thus far negative. Bilateral pneumonia - Worsening bilateral infiltrates - On IV antibiotics - Pulmonary consult appreciated Cardiomyopathy - EF of 10-15%, systolic dysfunction - continue with CHF medications - Cardiology consulted - Lexiscan stress test to be done once stable. Hyponatremia -Etiology, likely secondary to SIADH from pneumonia -Follow BMP DM with hyperglycemia - SSI and basal insulin DVT prophylaxis - On lovenox - patient is not stable enough to transfer to [facility]. History Interval history: No new issues overnight. Hospitalist Physical - Constitutional Vitals: Temp Pulse Resp BP Pulse Ox 97.9 F 88 22 117/79 96 09/29/17 07:47 09/29/17 10:38 09/29/17 07:47 09/29/17 10:38 09/29/17 09:16 General appearance: Present: no acute distress - EENT Eyes: Present: PERRL, EOM intact ENT: hearing intact, clear oral mucosa, dentition normal - Neck Neck: Present: supple, normal ROM - Respiratory Respiratory effort: normal Respiratory: bilateral: CTA - Cardiovascular Rhythm: regular Heart Sounds: Present: S1 & S2. Absent: gallop, rub - Extremities Extremities: no ischemia, No edema, Full ROM - Abdominal General gastrointestinal: soft, non-tender, non-distended, normal bowel sounds - Integumentary Integumentary: Present: clear, warm, dry - Neurologic Neurologic: CNII-XII intact, moves all extremities Results - Labs CBC & Chem 7: 09/29/17 05:20 09/29/17 05:20 Labs: Laboratory Last Values WBC 5.0 K/mm3 (4.5-11.0) 09/29/17 05:20 RBC 4.06 M/mm3 (3.65-5.03) 09/29/17 05:20 Hgb 11.4 gm/dl (11.8-15.2) L 09/29/17 05:20 Hct 34.5 % (35.5-45.6) L 09/29/17 05:20 MCV 85 fl (84-94) 09/29/17 05:20 MCH 28 pg (28-32) 09/29/17 05:20 MCHC 33 % (32-34) 09/29/17 05:20 RDW 14.7 % (13.2-15.2) 09/29/17 05:20 Plt Count 313 K/mm3 (140-440) 09/29/17 05:20 Lymph % (Auto) 10.5 % (13.4-35.0) L 09/29/17 05:20 [place] % (Auto) 9.1 % (0.0-7.3) H 09/29/17 05:20 Eos % (Auto) 3.3 % (0.0-4.3) 09/29/17 05:20 Baso % (Auto) 1.3 % (0.0-1.8) 09/29/17 05:20 Lymph # 0.5 K/mm3 (1.2-5.4) L 09/29/17 05:20 [place] # 0.5 K/mm3 (0.0-0.8) 09/29/17 05:20 Eos # 0.2 K/mm3 (0.0-0.4) 09/29/17 05:20 Baso # 0.1 K/mm3 (0.0-0.1) 09/29/17 05:20 Seg Neutrophils % 75.8 % (40.0-70.0) H 09/29/17 05:20 Seg Neutrophils # 3.8 K/mm3 (1.8-7.7) 09/29/17 05:20 POC ABG pH 7.459 (7.35-7.45) H 09/23/17 15:04 POC ABG pCO2 34.8 (35-45) L 09/23/17 15:04 POC ABG pO2 54 (80-105) L 09/23/17 15:04 POC ABG HCO3 24.7 09/23/17 15:04 POC ABG Total CO2 26 09/23/17 15:04 POC ABG O2 Sat 89 09/23/17 15:04 POC ABG Base Excess 1 09/23/17 15:04 FiO2 21 % 09/23/17 15:04 Sodium 128 mmol/L (137-145) L 09/29/17 05:20 Potassium 5.0 mmol/L (3.6-5.0) 09/29/17 05:20 Chloride 91.6 mmol/L (98-107) L 09/29/17 05:20 Carbon Dioxide 21 mmol/L (22-30) L 09/29/17 05:20 Anion Gap 20 mmol/L 09/29/17 05:20 BUN 51 mg/dL (9-20) H 09/29/17 05:20 Creatinine 3.8 mg/dL (0.8-1.5) H 09/29/17 05:20 Estimated GFR 21 ml/min 09/29/17 05:20 BUN/Creatinine Ratio 13 % 09/29/17 05:20 Glucose 161 mg/dL (75-100) H 09/29/17 05:20 POC Glucose 164 (70-105) H 09/28/17 22:12 Calcium 8.4 mg/dL (8.4-10.2) 09/29/17 05:20 Magnesium 1.70 mg/dL (1.7-2.3) 09/26/17 05:35 Total Creatine Kinase 170 units/L (55-170) 09/23/17 04:10 CK-MB (CK-2) 1.4 ng/mL (0.0-4.0) 09/23/17 04:10 CK-MB (CK-2) Rel Index 0.8 (0-4) 09/23/17 04:10 Troponin T 0.287 ng/mL (0.00-0.029) H* 09/23/17 04:10 C-Reactive Protein 34.90 mg/dL (0.00-1.30) H 09/27/17 21:18 NT-Pro-B Natriuret Pep 5093 pg/mL (0-450) H 09/22/17 21:31 Triglycerides 226 mg/dL (2-149) H 09/22/17 21:31 Cholesterol 235 mg/dL (50-199) H 09/22/17 21:31 LDL Cholesterol Direct 164 mg/dL (50-130) H 09/22/17 21:31 HDL Cholesterol 26 mg/dL (40-59) L 09/22/17 21:31 Cholesterol/HDL Ratio 9.03 % 09/22/17 21:31 Vancomycin Trough 36.3 ug/mL (5.0-20.0) H 09/28/17 07:00 HIV 1&2 Antibody Rapid Non react (Non React) 09/27/17 21:18 HIV P24 Antigen Non react (Non React) 09/27/17 21:18
--- NOTE | 2017-09-29 12:00 | Progress Note ---
Assessment and Plan Pneumonia Chronic systolic heart failure Acute renal failure Cardiomyopathy, etiology unclear EF 10-15% on echocardiogram. Diabetes Hypertension Hyperlipidemia Recommendations: Continue aggressive medical therapy for systolic heart failure including IV milrinone. Ischemic cardiac workup deferred for now until fluid overload and renal failure resolved. Subjective Date of service: 09/29/17 Principal diagnosis: Acute Hypoxemic Resp Failure; Bilateral Pulmonary Infiltrates; HFrEF Interval history: Patient reports continued shortness of breath. No distress noted. Objective Vital Signs Temp Pulse Resp BP Pulse Ox 09/29/17 10:38 88 117/79 09/29/17 09:16 96 09/29/17 07:47 97.9 F 98 H 22 117/79 100 09/29/17 05:04 97.8 F 95 H 20 109/78 100 09/29/17 04:12 22 09/29/17 00:30 98 H 24 106/74 100 09/28/17 22:00 18 09/28/17 21:26 88 20 98 09/28/17 20:24 97.5 F L 101 H 22 100/75 99 09/28/17 16:12 95 H 98 - Physical Examination General: No Apparent Distress HEENT: Positive: PERRL Cardiac: Positive: Reg Rate and Rhythm Neuro: Positive: Grossly Intact - Labs and Meds CBC 09/29/17 Range/Units 05:20 WBC 5.0 (4.5-11.0) K/mm3 RBC 4.06 (3.65-5.03) M/mm3 Hgb 11.4 L (11.8-15.2) gm/dl Hct 34.5 L (35.5-45.6) % Plt Count 313 (140-440) K/mm3 Lymph # 0.5 L (1.2-5.4) K/mm3 [place] # 0.5 (0.0-0.8) K/mm3 Eos # 0.2 (0.0-0.4) K/mm3 Baso # 0.1 (0.0-0.1) K/mm3 Comprehensive Metabolic Panel 09/29/17 Range/Units 05:20 Sodium 128 L (137-145) mmol/L Potassium 5.0 (3.6-5.0) mmol/L Chloride 91.6 L (98-107) mmol/L Carbon Dioxide 21 L (22-30) mmol/L BUN 51 H (9-20) mg/dL Creatinine 3.8 H (0.8-1.5) mg/dL Glucose 161 H (75-100) mg/dL Calcium 8.4 (8.4-10.2) mg/dL - Imaging and Cardiology EKG: image reviewed
[2017-09-29] MEDS: MILRINONE-D5W 20 MG/100 ML 20 MG/100 ML BAG IV SCH ×2 (12:52→23:09)
--- NOTE | 2017-09-29 16:15 | Consultation ---
History of Present Illness - Reason for Consult Consult date: 09/29/17 acute renal failure - History of Present Illness This is a 42 year old male who presented to the hospital on 09/22/17 with a chief complaint of shortness of breath and weakness. After evaluation, patient was diagnosed with having Pneumonia and was placed on antibiotics. Patient noted to also be on Tamiflu for possible Influenza management per Infectious Disease, however nasal wash reported negative for Influenza. Patient also has Systolic Congestive Heart Failure with EF 10-15% for which patient is on Milronone by Cardiology. Patient has history of Diabetes Mellitus and Hypertension. Of note, patient's serum creatinine has risen to 3.8 today. Baseline serum creatinine is 0.7. We are being consulted for management of this patient's Acute Renal failure. Past History Past Medical History: diabetes, heart failure, hypertension Past Surgical History: hernia repair Social history: smoking, alcohol abuse Family history: no significant family history Medications and Allergies Allergies Allergy/AdvReac Type Severity Reaction Status Date / Time No Known Allergies Allergy Verified 09/22/17 18:50 Home Medications Medication Instructions Recorded Confirmed Last Taken Type Furosemide [Lasix] 20 mg PO QDAY #60 tablet 03/09/16 09/22/17 09/11/17 17:50 Rx 20 mg Acetaminophen/Dp-Hydramine 1 each PO PRN 09/12/17 09/22/17 09/11/17 06:00 History [[facility] Pm Powder Packet] 1 Carvedilol [Coreg] 25 mg PO DAILY 09/13/17 09/22/17 09/08/17 21:00 History 25 Insulin Aspart Protam & Aspart 0 units SQ QAM 09/13/17 09/22/17 09/07/17 08:00 History [NovoLOG Mix 70-30 Flexpen] Levemir 20 units SUB-Q HS 09/13/17 09/22/17 09/07/17 22:00 History Lisinopril [Zestril] 40 mg PO HS 09/13/17 09/22/17 09/08/17 21:00 History amLODIPine [Norvasc] 10 mg PO DAILY 09/13/17 09/22/17 09/08/17 21:00 History Active Meds: Active Medications Acetaminophen (Tylenol) 650 mg PO Q4H PRN PRN Reason: Pain MILD(1-3)/Fever >100.5/[place] Last Admin: 09/28/17 23:24 Dose: 650 mg Albuterol (Proventil) 2.5 mg IH Q4HRT PRN PRN Reason: Shortness Of Breath Last Admin: 09/28/17 08:40 Dose: 2.5 mg Aspirin (Baby Aspirin) 81 mg PO QDAY [facility] Last Admin: 09/29/17 10:38 Dose: 81 mg Bisacodyl (Dulcolax) 10 mg [place] QDAY PRN PRN Reason: Constipation unrelieved by MOM Calcium Carbonate/Glycine (Tums) 500 mg PO Q4H PRN PRN Reason: Indigestion Last Admin: 09/29/17 10:37 Dose: 500 mg Carvedilol (Coreg) 6.25 mg PO BID [facility] Last Admin: 09/29/17 10:38 Dose: 6.25 mg Dextrose (D50w (25gm) Syringe) 50 ml IV PRN PRN PRN Reason: Hypoglycemia Enoxaparin Sodium (Lovenox) 30 mg SUB-Q QDAY [facility] Last Admin: 09/29/17 10:39 Dose: 30 mg Milrinone Lactate/Dextrose (Milrinone-D5w 20 Mg/100 Ml) 20 mg in 100 mls @ 11.633 mls/hr IV TITR [facility] PRN Reason: 0.375 MCG/KG/MIN Stop: 10/03/17 17:59 Last Admin: 09/29/17 12:52 Dose: 0.375 mcg/kg/min, 11.633 mls/hr Insulin Aspart (Novolog) 0 units SUB-Q ACHS [facility] PRN Reason: Protocol Last Admin: 09/28/17 22:00 Dose: 3 units Insulin Detemir (Levemir) 20 units SUB-Q QHS [facility] Last Admin: 09/28/17 22:53 Dose: 20 units Isosorbide Dinitrate/Hydralazine (Bidil 20/37.5mg) 1 each PO Q8HR [facility] Last Admin: 09/29/17 13:33 Dose: 1 each Levofloxacin (Levaquin) 750 mg PO Q48H [facility] Last Admin: 09/28/17 13:52 Dose: 750 mg Linezolid (Zyvox) 600 mg PO Q12HR [facility] PRN Reason: Protocol Last Admin: 09/29/17 10:37 Dose: 600 mg Lorazepam (Ativan) 1 mg IV Q4H PRN PRN Reason: Agitation Last Admin: 09/26/17 11:32 Dose: 1 mg Ondansetron HCl (Zofran) 4 mg IV Q8H PRN PRN Reason: N/V unrelieved by Reglan Oseltamivir Phosphate (Tamiflu) 75 mg PO Q48H AYALA Stop: 10/01/17 12:00 Review of Systems Constitutional: fatigue, weakness, no weight loss, no weight gain, no chills, no sweats Ears, nose, mouth and throat: no ear discharge, no tinnitis, no decreased hearing, no nose pain, no nasal congestion, no nasal discharge, no sinus pressure Cardiovascular: edema, shortness of breath, dyspnea on exertion, no chest pain, no orthopnea, no palpitations, no rapid/irregular heart beat, no syncope Respiratory: no cough with sputum, no excessive sputum, no hemoptysis, no shortness of breath Gastrointestinal: no nausea, no vomiting, no diarrhea, no constipation, no change in bowel habits Genitourinary Male: no flank pain, no discharge, no urinary frequency, no urinary hesitancy Musculoskeletal: no neck pain, no shooting arm pain, no arm numbness/tingling, no low back pain, no shooting leg pain, no hot joints Integumentary: no rash, no pruritis, no redness, no sores, no wounds, no jaundice Neurological: no paralysis, no weakness, no parathesias, no numbness, no tingling, no seizures, no syncope Psychiatric: no anxiety, no memory loss, no change in sleep habits, no sleep disturbances, no insomnia, no hypersomnia, no change in appetite Endocrine: no cold intolerance, no heat intolerance, no polyphagia, no excessive thirst, no polydipsia, no polyuria Hematologic/Lymphatic: no easy bruising, no easy bleeding, no lymphadenopathy, no lymphedema Exam - Vital Signs Vital signs: Vital Signs Temp Pulse Resp BP Pulse Ox 99.1 F 105 H 20 143/103 93 09/22/17 18:50 09/22/17 18:50 09/22/17 18:50 09/22/17 18:50 09/22/17 18:50 - General Appearance General appearance: well-developed, appears stated age EENT: ATNC, PERRL, hearing intact, vision intact Neck: Present: neck supple, trachea midline Respiratory: Decreased Breath Sounds Heart: tachycardia, S1S2 Gastrointestinal: Present: normoactive bowel sounds Integumentary: warm and dry Neurologic: alert and oriented x3 Musculoskeletal: Present: joint swelling Results - Lab Results 09/29/17 05:20 09/29/17 05:20 Most recent lab results Calcium 8.4 mg/dL (8.4-10.2) 09/29/17 05:20 Magnesium 1.70 mg/dL (1.7-2.3) 09/26/17 05:35 Assessment and Plan - Patient Problems (1) Acute renal failure (ARF) Current Visit: Yes Status: Acute Plan to address problem: Acute Renal failure secondary to Acute Tubular Necrosis secondary to Sepsis and possible Acute Interstitial Nephritis secondary to antibiotics use. Will obtain urine eosinophils Will obtain urine creatinine, urine sodium and urine protein levels Will obtain renal ultrasound Avoid Nephrotoxic agents Renally dose medications Obtain daily weights Monitor intake and output Monitor renal function closely (2) Bilateral pneumonia Current Visit: Yes Status: Acute Qualifiers: Pneumonia type: due to unspecified organism Lung location: unspecified part of lung Qualified Code(s): J18.9 - Pneumonia, unspecified organism Plan to address problem: Patient is on Levaquin and Zyvox (3) Systolic heart failure Current Visit: Yes Status: Acute Plan to address problem: On Milronone drip as per Cardiology Will place on low dose Lasix 40 mg IV daily (4) Diabetes mellitus type 2, insulin dependent Current Visit: No Status: Acute Plan to address problem: Insulin as per Primary team (5) Hyponatremia Current Visit: Yes Status: Acute Plan to address problem: Fluid restriction of 750 ml per Obtain urine osmolality and sodium levels Start Lasix 40 mg IV daily No salt tablets due to CHF (6) Hypertension Current Visit: Yes Status: Acute Plan to address problem: Blood pressures are stable. Continue on Coreg.
[2017-09-29] MEDS: LASIX IV SCH (18:45)
[2017-09-29 19:13] LABS: HIV-1 RNA QN PCR TNR (())
[2017-09-29] MEDS: LEVEMIR SUB-Q SCH (23:11)
[2017-09-29] MEDS: TYLENOL PO PRN (23:16)
[2017-09-30] MEDS: TUMS PO PRN ×4 (03:26→21:10)
[2017-09-30] MEDS: TYLENOL PO PRN ×2 (03:30→21:16)
[2017-09-30 06:24] LABS: Calcium 7.9 mg/dL (8.4-10.2)
[2017-09-30 06:27] LABS: Basophils % (Auto) 0.6 % (0.0-1.8); Eosinophils # (Auto) 0.3 K/mm3 (0.0-0.4); Eosinophils % (Auto) 4.9 % (0.0-4.3); Hematocrit 32.1 % (35.5-45.6); Hemoglobin 10.3 gm/dl (11.8-15.2); Lymphocytes # (Auto) 0.8 K/mm3 (1.2-5.4); Lymphocytes % (Auto) 11.6 % (13.4-35.0); Mean Corpuscular HGB Conc 32 % (32-34); Mean Corpuscular Hemoglobin 27 pg (28-32); Mean Corpuscular Volume 84 fl (84-94); Monocytes # (Auto) 0.6 K/mm3 (0.0-0.8); Monocytes % (Auto) 9.3 % (0.0-7.3); Platelet Count 338 K/mm3 (140-440); Red Blood Count 3.81 M/mm3 (3.65-5.03); Red Cell Distribution Width 14.8 % (13.2-15.2)
[2017-09-30] MEDS: MILRINONE-D5W 20 MG/100 ML 20 MG/100 ML BAG IV SCH ×3 (06:57→21:17)
[2017-09-30] MEDS: BIDIL 20/37.5MG PO SCH ×3 (06:57→21:09)
[2017-09-30] MEDS: NOVOLOG SUB-Q SCH ×4 (08:00→23:43)
--- NOTE | 2017-09-30 09:11 | Progress Note ---
Assessment and Plan Acute hypoxemic respiratory failure Bilateral infiltrates Hyponatremia Diabetes, poorly controlled Morbid obesity Systolic heart failure, EF 15% Tobacco abuse disorder -Supplemental oxygen to keep O2 sats>90% -- risks outweigh likely benefits from bronchoscopy at this time, optimize then plan for out patient bronchoscopy -Heart failure measures, fluid restriction, cardioprotective measures -Milrirone per cardiology -Anti-infectives per ID -VTE prophylaxis -ABG on room air - Smoking cessation counselling done again -Nicotine withdrawal precautions -Outpatient sleep study Subjective Date of service: 09/30/17 Principal diagnosis: Acute Hypoxemic Resp Failure; Bilateral Pulmonary Infiltrates; HFrEF Interval history: Patient is seen today for: Acute Hypoxemic Resp Failure; Bilateral Pulmonary Infiltrates; HFrEF Seen and examined at bedside; 24hour events reviewed; nursing and respiratory care staff consulted; no adverse overnight events reported to me; resting in bed ; feels better; on 2L NC; denies acute chest pains; + cough no hemoptysis; No N/ V/F/C Objective - Exam Narrative Exam: General appearance: Alert in NAD, conversant Eyes: anicteric sclerae, moist conjunctivae; no lid-lag; PERRLA HENT: Atraumatic; oropharynx clear with moist mucous membranes and no mucosal ulcerations/no oral thrush; normal hard and soft palate. Normal external ears. Neck: Trachea midline; supple, no thyromegaly or lymphadenopathy Lungs: diminished in bilateral lung bases, CV: RRR, no murmurs Abdomen: Soft, non-tender; +BS x 4 Extremities: No peripheral edema or extremity lymphadenopathy Skin: Normal temperature, turgor and texture; no rash, ulcers or subcutaneous nodules Psych: Appropriate affect, cooperative Neuro: alert and oriented x 3. Moving all extermities Vital Signs - 12hr 09/29/17 09/29/17 09/29/17 22:00 23:00 23:10 Temperature Pulse Rate 103 H 89 Pulse Rate [ 90 Apical] Respiratory 20 26 H Rate Blood Pressure 119/72 Blood Pressure [Left] O2 Sat by Pulse 92 95 Oximetry 09/29/17 09/29/17 09/30/17 23:11 23:16 00:09 Temperature 98.1 F Pulse Rate 89 106 H Pulse Rate [ Apical] Respiratory 20 22 Rate Blood Pressure 119/72 85/38 Blood Pressure [Left] O2 Sat by Pulse 98 Oximetry 09/30/17 09/30/1718 06:52 06:57 08:31 Temperature 98.3 F Pulse Rate 77 97 H 98 H Pulse Rate [ Apical] Respiratory 20 20 Rate Blood Pressure 109/70 109/70 Blood Pressure 111/63 [Left] O2 Sat by Pulse 99 90 Oximetry Constitutional: no acute distress, alert Eyes: non-icteric ENT: oropharynx moist, other (No thyromegaly) Neck: supple, no lymphadenopathy, no JVD Effort: mildly labored Ascultation: Bilateral: diminished breath sounds, rales (bases) Percussion: Bilateral: not dull Cardiovascular: regular rate and rhythm, murmur noted, other (no rubs) Gastrointestinal: normoactive bowel sounds, soft, non-tender, non-distended, other (no palpable HSM) Integumentary: normal Extremities: no cyanosis, pulses normal, no ischemia or petechiae, edema Neurologic: normal mental status, non-focal exam, pupils equal and round, CN II- XII normal Psychiatric: mood appropriate, affect normal CBC and BMP: 10/03/17 06:13 10/03/17 06:13 ABG, PT/INR, D-dimer: ABG POC ABG pH 7.459 (7.35-7.45) H 09/23/17 15:04 POC ABG pCO2 34.8 (35-45) L 09/23/17 15:04 POC ABG pO2 54 (80-105) L 09/23/17 15:04 POC ABG HCO3 24.7 09/23/17 15:04 POC ABG Total CO2 26 09/23/17 15:04 POC ABG O2 Sat 89 09/23/17 15:04 Abnormal lab findings: Abnormal Labs 09/22/17 09/22/17 09/22/17 21:30 21:31 21:31 WBC RBC Hgb Hct MCH RDW 15.3 H Lymph % (Auto) [place] % (Auto) 9.6 H Eos % (Auto) Lymph # [place] # 0.9 H Seg Neutrophils % 72.0 H Seg Neutrophils # POC ABG pH POC ABG pCO2 POC ABG pO2 Sodium Chloride Carbon Dioxide BUN Creatinine Glucose POC Glucose Calcium Total Creatine Kinase 371 H Troponin T 0.260 H* C-Reactive Protein NT-Pro-B Natriuret Pep 5093 H Triglycerides 226 H Cholesterol 235 H LDL Cholesterol Direct 164 H HDL Cholesterol 26 L Vancomycin Trough 09/22/17 09/22/17 09/23/17 22:54 22:54 04:00 WBC RBC Hgb Hct MCH RDW Lymph % (Auto) [place] % (Auto) 11.9 H Eos % (Auto) Lymph # [place] # Seg Neutrophils % Seg Neutrophils # POC ABG pH POC ABG pCO2 POC ABG pO2 Sodium 129 L Chloride 91.6 L Carbon Dioxide BUN Creatinine 0.7 L Glucose 256 H POC Glucose Calcium 7.9 L Total Creatine Kinase 211 H Troponin T 0.344 H* D C-Reactive Protein NT-Pro-B Natriuret Pep Triglycerides Cholesterol LDL Cholesterol Direct HDL Cholesterol Vancomycin Trough 09/23/17 09/23/17 09/23/17 04:00 04:10 09:09 WBC RBC Hgb Hct MCH RDW Lymph % (Auto) [place] % (Auto) Eos % (Auto) Lymph # [place] # Seg Neutrophils % Seg Neutrophils # POC ABG pH POC ABG pCO2 POC ABG pO2 Sodium 136 L D Chloride 95.3 L Carbon Dioxide BUN Creatinine Glucose 181 H POC Glucose 166 H Calcium 7.7 L Total Creatine Kinase Troponin T 0.287 H* C-Reactive Protein NT-Pro-B Natriuret Pep Triglycerides Cholesterol LDL Cholesterol Direct HDL Cholesterol Vancomycin Trough 09/23/17 09/23/17 09/23/17 11:40 13:19 15:04 WBC RBC Hgb Hct MCH RDW Lymph % (Auto) [place] % (Auto) Eos % (Auto) Lymph # [place] # Seg Neutrophils % Seg Neutrophils # POC ABG pH 7.459 H POC ABG pCO2 34.8 L POC ABG pO2 54 L Sodium Chloride Carbon Dioxide BUN Creatinine Glucose POC Glucose 221 H 267 H Calcium Total Creatine Kinase Troponin T C-Reactive Protein NT-Pro-B Natriuret Pep Triglycerides Cholesterol LDL Cholesterol Direct HDL Cholesterol Vancomycin Trough 09/23/17 09/23/17 09/24/17 15:57 22:07 04:40 WBC RBC Hgb Hct MCH RDW Lymph % (Auto) [place] % (Auto) 11.4 H Eos % (Auto) Lymph # [place] # Seg Neutrophils % Seg Neutrophils # POC ABG pH POC ABG pCO2 POC ABG pO2 Sodium Chloride Carbon Dioxide BUN Creatinine Glucose POC Glucose 281 H 166 H Calcium Total Creatine Kinase Troponin T C-Reactive Protein NT-Pro-B Natriuret Pep Triglycerides Cholesterol LDL Cholesterol Direct HDL Cholesterol Vancomycin Trough 09/24/17 09/24/17 09/24/17 04:40 08:42 12:17 WBC RBC Hgb Hct MCH RDW Lymph % (Auto) [place] % (Auto) Eos % (Auto) Lymph # [place] # Seg Neutrophils % Seg Neutrophils # POC ABG pH POC ABG pCO2 POC ABG pO2 Sodium 133 L Chloride 95.6 L Carbon Dioxide BUN Creatinine 0.7 L Glucose 251 H POC Glucose 173 H 209 H Calcium 7.8 L Total Creatine Kinase Troponin T C-Reactive Protein NT-Pro-B Natriuret Pep Triglycerides Cholesterol LDL Cholesterol Direct HDL Cholesterol Vancomycin Trough 09/24/17 09/24/17 09/25/17 16:13 21:21 12:44 WBC RBC Hgb Hct MCH RDW Lymph % (Auto) [place] % (Auto) Eos % (Auto) Lymph # [place] # Seg Neutrophils % Seg Neutrophils # POC ABG pH POC ABG pCO2 POC ABG pO2 Sodium Chloride Carbon Dioxide BUN Creatinine Glucose POC Glucose 248 H 152 H 185 H Calcium Total Creatine Kinase Troponin T C-Reactive Protein NT-Pro-B Natriuret Pep Triglycerides Cholesterol LDL Cholesterol Direct HDL Cholesterol Vancomycin Trough 09/25/17 09/25/17 09/26/17 17:18 23:10 05:35 WBC 15.6 H RBC Hgb Hct MCH RDW Lymph % (Auto) [place] % (Auto) Eos % (Auto) Lymph # [place] # Seg Neutrophils % 78.5 H Seg Neutrophils # 12.2 H POC ABG pH POC ABG pCO2 POC ABG pO2 Sodium Chloride Carbon Dioxide BUN Creatinine Glucose POC Glucose 186 H 187 H Calcium Total Creatine Kinase Troponin T C-Reactive Protein NT-Pro-B Natriuret Pep Triglycerides Cholesterol LDL Cholesterol Direct HDL Cholesterol Vancomycin Trough 09/26/17 09/26/17 09/26/17 05:35 09:02 12:20 WBC RBC Hgb Hct MCH RDW Lymph % (Auto) [place] % (Auto) Eos % (Auto) Lymph # [place] # Seg Neutrophils % Seg Neutrophils # POC ABG pH POC ABG pCO2 POC ABG pO2 Sodium 133 L Chloride 95.2 L Carbon Dioxide BUN Creatinine 0.7 L Glucose 161 H POC Glucose 131 H 199 H Calcium 8.3 L Total Creatine Kinase Troponin T C-Reactive Protein NT-Pro-B Natriuret Pep Triglycerides Cholesterol LDL Cholesterol Direct HDL Cholesterol Vancomycin Trough 09/26/17 09/26/1709/27/18 16:39 21:45 07:24 WBC RBC Hgb Hct MCH RDW Lymph % (Auto) [place] % (Auto) Eos % (Auto) Lymph # [place] # Seg Neutrophils % Seg Neutrophils # POC ABG pH POC ABG pCO2 POC ABG pO2 Sodium Chloride Carbon Dioxide BUN Creatinine Glucose POC Glucose 209 H 194 H 210 H Calcium Total Creatine Kinase Troponin T C-Reactive Protein NT-Pro-B Natriuret Pep Triglycerides Cholesterol LDL Cholesterol Direct HDL Cholesterol Vancomycin Trough 09/27/17 09/27/17 09/27/17 09:20 09:20 11:50 WBC RBC Hgb 11.0 L Hct MCH RDW Lymph % (Auto) [place] % (Auto) Eos % (Auto) Lymph # [place] # Seg Neutrophils % 77.2 H Seg Neutrophils # POC ABG pH POC ABG pCO2 POC ABG pO2 Sodium 134 L Chloride 96.1 L Carbon Dioxide BUN 21 H Creatinine Glucose 139 H POC Glucose Calcium 8.0 L Total Creatine Kinase Troponin T C-Reactive Protein NT-Pro-B Natriuret Pep Triglycerides Cholesterol LDL Cholesterol Direct HDL Cholesterol Vancomycin Trough 46.8 H 09/27/17 09/27/17 09/27/17 11:50 12:18 17:00 WBC RBC Hgb 10.7 L Hct 32.1 L D MCH RDW Lymph % (Auto) [place] % (Auto) Eos % (Auto) Lymph # [place] # Seg Neutrophils % 80.6 H Seg Neutrophils # POC ABG pH POC ABG pCO2 POC ABG pO2 Sodium Chloride Carbon Dioxide BUN Creatinine Glucose POC Glucose 274 H 169 H Calcium Total Creatine Kinase Troponin T C-Reactive Protein NT-Pro-B Natriuret Pep Triglycerides Cholesterol LDL Cholesterol Direct HDL Cholesterol Vancomycin Trough 09/27/17 09/27/17 09/27/17 21:18 23:28 23:49 WBC RBC Hgb Hct MCH RDW Lymph % (Auto) [place] % (Auto) Eos % (Auto) Lymph # [place] # Seg Neutrophils % Seg Neutrophils # POC ABG pH POC ABG pCO2 POC ABG pO2 Sodium Chloride Carbon Dioxide BUN Creatinine Glucose POC Glucose 251 H 233 H Calcium Total Creatine Kinase Troponin T C-Reactive Protein 34.90 H NT-Pro-B Natriuret Pep Triglycerides Cholesterol LDL Cholesterol Direct HDL Cholesterol Vancomycin Trough 09/28/17 09/28/17 09/28/17 07:00 07:00 07:00 WBC RBC 3.44 L Hgb 9.9 L Hct 29.6 L MCH RDW Lymph % (Auto) [place] % (Auto) Eos % (Auto) Lymph # 1.0 L [place] # Seg Neutrophils % 76.2 H Seg Neutrophils # POC ABG pH POC ABG pCO2 POC ABG pO2 Sodium 128 L Chloride 92.1 L Carbon Dioxide 20 L BUN 40 H Creatinine 3.1 H D Glucose 199 H POC Glucose Calcium 7.5 L Total Creatine Kinase Troponin T C-Reactive Protein NT-Pro-B Natriuret Pep Triglycerides Cholesterol LDL Cholesterol Direct HDL Cholesterol Vancomycin Trough 36.3 H 09/28/17 09/28/17 09/28/17 08:03 13:31 16:20 WBC RBC Hgb Hct MCH RDW Lymph % (Auto) [place] % (Auto) Eos % (Auto) Lymph # [place] # Seg Neutrophils % Seg Neutrophils # POC ABG pH POC ABG pCO2 POC ABG pO2 Sodium Chloride Carbon Dioxide BUN Creatinine Glucose POC Glucose 165 H 237 H 323 H Calcium Total Creatine Kinase Troponin T C-Reactive Protein NT-Pro-B Natriuret Pep Triglycerides Cholesterol LDL Cholesterol Direct HDL Cholesterol Vancomycin Trough 09/28/17 09/29/17 09/29/17 22:12 05:20 05:20 WBC RBC Hgb 11.4 L Hct 34.5 L MCH RDW Lymph % (Auto) 10.5 L [place] % (Auto) 9.1 H Eos % (Auto) Lymph # 0.5 L [place] # Seg Neutrophils % 75.8 H Seg Neutrophils # POC ABG pH POC ABG pCO2 POC ABG pO2 Sodium 128 L Chloride 91.6 L Carbon Dioxide 21 L BUN 51 H Creatinine 3.8 H Glucose 161 H POC Glucose 164 H Calcium Total Creatine Kinase Troponin T C-Reactive Protein NT-Pro-B Natriuret Pep Triglycerides Cholesterol LDL Cholesterol Direct HDL Cholesterol Vancomycin Trough 09/29/17 09/29/17 09/29/17 07:53 16:21 22:17 WBC RBC Hgb Hct MCH RDW Lymph % (Auto) [place] % (Auto) Eos % (Auto) Lymph # [place] # Seg Neutrophils % Seg Neutrophils # POC ABG pH POC ABG pCO2 POC ABG pO2 Sodium Chloride Carbon Dioxide BUN Creatinine Glucose POC Glucose 128 H 141 H 158 H Calcium Total Creatine Kinase Troponin T C-Reactive Protein NT-Pro-B Natriuret Pep Triglycerides Cholesterol LDL Cholesterol Direct HDL Cholesterol Vancomycin Trough 09/30/17 09/30/17 05:21 05:21 WBC RBC Hgb 10.3 L Hct 32.1 L MCH 27 L RDW Lymph % (Auto) 11.6 L [place] % (Auto) 9.3 H Eos % (Auto) 4.9 H Lymph # 0.8 L [place] # Seg Neutrophils % 73.6 H Seg Neutrophils # POC ABG pH POC ABG pCO2 POC ABG pO2 Sodium 127 L Chloride 90.9 L Carbon Dioxide BUN 52 H Creatinine 4.5 H Glucose 187 H POC Glucose Calcium 7.9 L Total Creatine Kinase Troponin T C-Reactive Protein NT-Pro-B Natriuret Pep Triglycerides Cholesterol LDL Cholesterol Direct HDL Cholesterol Vancomycin Trough
[2017-09-30] MEDS ORDERED: TAMIFLU PO SCH (10:00)
--- NOTE | 2017-09-30 10:12 | Progress Note ---
Assessment and Plan Assessment: 1) Sepsis: better. Etiology most likely bilateral pneumonia. -blood cultures 09/22 ngtd -CRP = 34.90 -HIV non reactive 2) Bilateral pneumonia: ? post-influenza pneumonia ? CAP ?HAP on top of CHF exacerbation 3) CHF exaceration 4) Hyponatremia 5) DM-uncontrolled 6) Acute respiratory failure 7)ARF; -Creatinine = 4.5 Plan: -follow up respiratory cultures, ordered and needs to be collected. spoke with nurse -follow up influenza antigen PCR in nasopharinx, ordered and to be collected, spoke with nurse -follow up Legionella urine antigen, Streptococcus pneumoniae urine antigen -continue zyvox 600 q 12 hrs day 3 and levaquin, day 4 renally dosed -continue tamiflu day 4 of 5 -continue to monitor pleural effusions-CTA showed mild ilya effusion -monitor creatinine -Nephrology following -pulmonary following Nicol Jauregui [employer] for Dr. Ondina Arndt MD Infectious Diseases Specialist [facility] ([facility]) M [phone] O [phone] Subjective Date of service: 09/30/17 Principal diagnosis: Acute Hypoxemic Resp Failure; Bilateral Pulmonary Infiltrates; HFrEF Interval history: I feel a little better today, no fever Microbiology: Blood cultures: 09/22 ngtd 09/10 negative Urine cultures: Respiratory cultures: Current Antimicrobials: Levaquin 09/28 zyvox 09/29 Tamiflu 09/27 Previous Antimicrobials: Zosyn 09/23 Vanco 09/23 Objective - Exam Narrative Exam: General appearance: Alert in NAD, conversant Eyes: anicteric sclerae, moist conjunctivae; no lid-lag; PERRLA HENT: Atraumatic; oropharynx clear with moist mucous membranes and no mucosal ulcerations/no oral thrush; normal hard and soft palate. Normal external ears. Neck: Trachea midline; supple, no thyromegaly or lymphadenopathy Lungs: diminish in bilateral lung bases, SOB CV: RRR, no murmurs Abdomen: Soft, non-tender; +BS x 4 Extremities: No peripheral edema or extremity lymphadenopathy Skin: Normal temperature, turgor and texture; no rash, ulcers or subcutaneous nodules Psych: Appropriate affect, cooperative Neuro: alert and oriented x 3. Moving all extermities Lines: No CVL / PICC - Constitutional Vitals: Vital Signs Temp Pulse Resp BP Pulse Ox 98.3 F 98 H 20 111/63 90 09/30/17 08:31 09/30/17 08:31 09/30/17 08:31 09/30/17 08:31 09/30/17 08:31 Temperature -Last 24 Hours Temperature 98.3 F Temperature 98.1 F Temperature 99.2 F Temperature 98.9 F Temperature 99.1 F - Labs CBC & Chem 7: 09/30/17 05:21 09/30/17 05:21 Labs: Abnormal lab results 09/29/17 09/29/17 09/29/17 Range/Units 07:53 16:21 22:17 Hgb (11.8-15.2) gm/dl Hct (35.5-45.6) % MCH (28-32) pg Lymph % (Auto) (13.4-35.0) % [place] % (Auto) (0.0-7.3) % Eos % (Auto) (0.0-4.3) % Lymph # (1.2-5.4) K/mm3 Seg Neutrophils % (40.0-70.0) % Sodium (137-145) mmol/L Chloride (98-107) mmol/L BUN (9-20) mg/dL Creatinine (0.8-1.5) mg/dL Glucose (75-100) mg/dL POC Glucose 128 H 141 H 158 H (70-105) Calcium (8.4-10.2) mg/dL 09/30/17 09/30/17 Range/Units 05:21 05:21 Hgb 10.3 L (11.8-15.2) gm/dl Hct 32.1 L (35.5-45.6) % MCH 27 L (28-32) pg Lymph % (Auto) 11.6 L (13.4-35.0) % [place] % (Auto) 9.3 H (0.0-7.3) % Eos % (Auto) 4.9 H (0.0-4.3) % Lymph # 0.8 L (1.2-5.4) K/mm3 Seg Neutrophils % 73.6 H (40.0-70.0) % Sodium 127 L (137-145) mmol/L Chloride 90.9 L (98-107) mmol/L BUN 52 H (9-20) mg/dL Creatinine 4.5 H (0.8-1.5) mg/dL Glucose 187 H (75-100) mg/dL POC Glucose (70-105) Calcium 7.9 L (8.4-10.2) mg/dL
--- NOTE | 2017-09-30 10:20 | Progress Note ---
Assessment and Plan Pneumonia Chronic systolic heart failure Acute renal failure Cardiomyopathy, etiology unclear EF 10-15% on echocardiogram. Diabetes Hypertension Hyperlipidemia Recommendations: Continue aggressive medical therapy for systolic heart failure including IV milrinone. Ischemic cardiac workup deferred for now until fluid overload and renal failure resolved. Subjective Date of service: 09/30/17 Principal diagnosis: Acute Hypoxemic Resp Failure; Bilateral Pulmonary Infiltrates; HFrEF Interval history: Patient reports continued shortness of breath. No distress noted. Patient's renal failure continues to get worse, creatinine is up to 4.5 today. Objective Vital Signs Temp Pulse Pulse Resp BP BP Pulse Ox 09/30/17 08:31 98.3 F 98 H 20 111/63 90 09/30/17 06:57 97 H 109/70 09/30/17 06:52 77 20 109/70 99 09/30/17 00:09 98.1 F 106 H 22 85/38 98 09/29/17 23:16 20 09/29/17 23:11 89 119/72 09/29/17 23:10 89 119/72 09/29/17 23:00 103 H 26 H 95 09/29/17 22:00 90 20 92 09/29/17 20:45 99.2 F 106 H 22 115/73 94 09/29/17 20:16 103 H 09/29/17 18:44 98.9 F 89 22 119/72 91 09/29/17 15:02 96 09/29/17 13:36 95 H 24 97 09/29/17 13:33 102 H 142/96 09/29/17 12:47 99.1 F 102 H 22 142/96 97 09/29/17 10:38 88 117/79 - Physical Examination General: No Apparent Distress HEENT: Positive: PERRL Cardiac: Positive: Reg Rate and Rhythm Lungs: Positive: Decreased Breath Sounds Neuro: Positive: Grossly Intact Abdomen: Positive: Soft - Labs and Meds CBC 09/30/17 Range/Units 05:21 WBC 6.5 (4.5-11.0) K/mm3 RBC 3.81 (3.65-5.03) M/mm3 Hgb 10.3 L (11.8-15.2) gm/dl Hct 32.1 L (35.5-45.6) % Plt Count 338 (140-440) K/mm3 Lymph # 0.8 L (1.2-5.4) K/mm3 Wilkinson # 0.6 (0.0-0.8) K/mm3 Eos # 0.3 (0.0-0.4) K/mm3 Baso # 0.0 (0.0-0.1) K/mm3 Comprehensive Metabolic Panel 09/30/17 Range/Units 05:21 Sodium 127 L (137-145) mmol/L Potassium 4.6 (3.6-5.0) mmol/L Chloride 90.9 L (98-107) mmol/L Carbon Dioxide 23 (22-30) mmol/L BUN 52 H (9-20) mg/dL Creatinine 4.5 H (0.8-1.5) mg/dL Glucose 187 H (75-100) mg/dL Calcium 7.9 L (8.4-10.2) mg/dL - Imaging and Cardiology EKG: image reviewed
[2017-09-30] MEDS: LASIX IV SCH (10:33)
[2017-09-30] MEDS: BABY ASPIRIN PO SCH (10:34)
[2017-09-30] MEDS: COREG PO SCH ×2 (10:34→21:10)
[2017-09-30] MEDS: ZYVOX PO SCH ×2 (10:34→21:10)
[2017-09-30] MEDS: LOVENOX SUB-Q SCH (10:35)
--- NOTE | 2017-09-30 10:55 | Progress Note ---
Assessment and Plan Assessment and plan: Acute hypoxic respiratory failure - BIPAP as clinically indicated -Etiology secondary to bilateral pneumonia Acute Renal failure -Etiology, likely secondary to LEÓN from ATN/sepsis and possible Acute Interstitial Nephritis secondary to antibiotics use. -Follow-up renal ultrasound, urine creatinine, urine sodium, urine protein levels and urine eosinophils. -Avoid Nephrotoxic agents -Renally dose medications -Obtain daily weights -Monitor intake and output -Monitor renal function closely -Nephrology following Sepsis -Present on admission. -Etiology secondary to pneumonia. -follow up Legionella urine antigen, Streptococcus pneumoniae urine antigen -Blood cultures thus far negative. -continue zyvox 600 q 12 hrs day 3 and levaquin, day 4 renally dosed -continue tamiflu day 4 of 5 Bilateral pneumonia - Worsening bilateral infiltrates - On IV antibiotics as above - Pulmonary consult appreciated -Check chest x-ray in a.m. Cardiomyopathy - EF of 10-15%, systolic dysfunction - continue with CHF medications - Cardiology consulted - Lexiscan stress test to be done once stable. Hyponatremia -Etiology, likely secondary to SIADH from pneumonia -Follow BMP DM with hyperglycemia - SSI and basal insulin DVT prophylaxis - On lovenox - patient is not stable enough to transfer to [facility]. History Interval history: No new issues overnight. Hospitalist Physical - Constitutional Vitals: Temp Pulse Resp BP Pulse Ox 98.3 F 77 20 109/70 90 09/30/17 08:31 09/30/17 10:34 09/30/17 08:31 09/30/17 10:34 09/30/17 08:31 General appearance: Present: no acute distress - EENT Eyes: Present: PERRL, EOM intact ENT: hearing intact, clear oral mucosa, dentition normal - Neck Neck: Present: supple, normal ROM - Respiratory Respiratory effort: normal Respiratory: bilateral: CTA - Cardiovascular Rhythm: regular Heart Sounds: Present: S1 & S2. Absent: gallop, rub - Extremities Extremities: no ischemia, No edema, Full ROM - Abdominal General gastrointestinal: soft, non-tender, non-distended, normal bowel sounds - Integumentary Integumentary: Present: clear, warm, dry - Neurologic Neurologic: CNII-XII intact, moves all extremities Results - Labs CBC & Chem 7: 09/30/17 05:21 09/30/17 05:21 Labs: Laboratory Last Values WBC 6.5 K/mm3 (4.5-11.0) 09/30/17 05:21 RBC 3.81 M/mm3 (3.65-5.03) 09/30/17 05:21 Hgb 10.3 gm/dl (11.8-15.2) L 09/30/17 05:21 Hct 32.1 % (35.5-45.6) L 09/30/17 05:21 MCV 84 fl (84-94) 09/30/17 05:21 MCH 27 pg (28-32) L 09/30/17 05:21 MCHC 32 % (32-34) 09/30/17 05:21 RDW 14.8 % (13.2-15.2) 09/30/17 05:21 Plt Count 338 K/mm3 (140-440) 09/30/17 05:21 Lymph % (Auto) 11.6 % (13.4-35.0) L 09/30/17 05:21 Gregory % (Auto) 9.3 % (0.0-7.3) H 09/30/17 05:21 Eos % (Auto) 4.9 % (0.0-4.3) H 09/30/17 05:21 Baso % (Auto) 0.6 % (0.0-1.8) 09/30/17 05:21 Lymph # 0.8 K/mm3 (1.2-5.4) L 09/30/17 05:21 Gregory # 0.6 K/mm3 (0.0-0.8) 09/30/17 05:21 Eos # 0.3 K/mm3 (0.0-0.4) 09/30/17 05:21 Baso # 0.0 K/mm3 (0.0-0.1) 09/30/17 05:21 Seg Neutrophils % 73.6 % (40.0-70.0) H 09/30/17 05:21 Seg Neutrophils # 4.8 K/mm3 (1.8-7.7) 09/30/17 05:21 POC ABG pH 7.459 (7.35-7.45) H 09/23/17 15:04 POC ABG pCO2 34.8 (35-45) L 09/23/17 15:04 POC ABG pO2 54 (80-105) L 09/23/17 15:04 POC ABG HCO3 24.7 09/23/17 15:04 POC ABG Total CO2 26 09/23/17 15:04 POC ABG O2 Sat 89 09/23/17 15:04 POC ABG Base Excess 1 09/23/17 15:04 FiO2 21 % 09/23/17 15:04 Sodium 127 mmol/L (137-145) L 09/30/17 05:21 Potassium 4.6 mmol/L (3.6-5.0) 09/30/17 05:21 Chloride 90.9 mmol/L (98-107) L 09/30/17 05:21 Carbon Dioxide 23 mmol/L (22-30) 09/30/17 05:21 Anion Gap 18 mmol/L 09/30/17 05:21 BUN 52 mg/dL (9-20) H 09/30/17 05:21 Creatinine 4.5 mg/dL (0.8-1.5) H 09/30/17 05:21 Estimated GFR 17 ml/min 09/30/17 05:21 BUN/Creatinine Ratio 12 % 09/30/17 05:21 Glucose 187 mg/dL (75-100) H 09/30/17 05:21 POC Glucose 158 (70-105) H 09/29/17 22:17 Osmolality 299 Mosm/kg 09/30/17 05:21 Calcium 7.9 mg/dL (8.4-10.2) L 09/30/17 05:21 Phosphorus 3.30 mg/dL (2.5-4.5) 09/30/17 05:21 Magnesium 1.70 mg/dL (1.7-2.3) 09/26/17 05:35 Total Creatine Kinase 170 units/L (55-170) 09/23/17 04:10 CK-MB (CK-2) 1.4 ng/mL (0.0-4.0) 09/23/17 04:10 CK-MB (CK-2) Rel Index 0.8 (0-4) 09/23/17 04:10 Troponin T 0.287 ng/mL (0.00-0.029) H* 09/23/17 04:10 C-Reactive Protein 34.90 mg/dL (0.00-1.30) H 01/21/18 21:18 NT-Pro-B Natriuret Pep 5093 pg/mL (0-450) H 09/22/17 21:31 Triglycerides 226 mg/dL (2-149) H 09/22/17 21:31 Cholesterol 235 mg/dL (50-199) H 09/22/17 21:31 LDL Cholesterol Direct 164 mg/dL (50-130) H 09/22/17 21:31 HDL Cholesterol 26 mg/dL (40-59) L 09/22/17 21:31 Cholesterol/HDL Ratio 9.03 % 09/22/17 21:31 Vancomycin Trough 36.3 ug/mL (5.0-20.0) H 09/28/17 07:00 HIV-1 RNA PCR copies/ml TNR 09/27/17 21:18 HIV-1 RNA (PCR) log TNR 09/27/17 21:18 HIV 1&2 Antibody Rapid Non react (Non React) 09/27/17 21:18 HIV P24 Antigen Non react (Non React) 09/27/17 21:18
--- NOTE | 2017-09-30 11:02 | Progress Note ---
Assessment and Plan - Patient Problems (1) Acute renal failure (ARF) Current Visit: Yes Status: Acute Plan to address problem: Acute Renal failure secondary to Acute Tubular Necrosis secondary to Sepsis and possible Acute Interstitial Nephritis secondary to antibiotics use and Cardiorenal Syndrome. Renal labs reviewed. Serum creatinine rubens to 4.5 today. Patient is volume overloaded, on venturi mask and oliguric. Discussed hemodialysis option with patient, however, patient states he would like to wait until tomorrow to start it. He states he would like to discuss it with his father this evening. Urine eosinophils to be collected Urine creatinine, urine sodium and urine protein levels to be collected Renal ultrasound- pending Avoid Nephrotoxic agents Renally dose medications Obtain daily weights Monitor intake and output- patient refused ye catheter placement Continue to monitor renal function closely (2) Bilateral pneumonia Current Visit: Yes Status: Acute Qualifiers: Pneumonia type: due to unspecified organism Lung location: unspecified part of lung Qualified Code(s): J18.9 - Pneumonia, unspecified organism Plan to address problem: Patient is on Levaquin and Zyvox (3) Systolic heart failure Current Visit: Yes Status: Acute Plan to address problem: On Milronone drip as per Cardiology On low dose Lasix 40 mg IV daily (4) Diabetes mellitus type 2, insulin dependent Current Visit: No Status: Acute Plan to address problem: Insulin as per Primary team (5) Hyponatremia Current Visit: Yes Status: Acute Plan to address problem: Fluid restriction of 750 ml per On Lasix 40 mg IV daily No salt tablets due to CHF (6) Hypertension Current Visit: Yes Status: Acute Plan to address problem: Blood pressures are stable. Continue on Coreg. Subjective Date of service: 09/30/17 Principal diagnosis: Acute Hypoxemic Resp Failure; Bilateral Pulmonary Infiltrates; HFrEF Interval history: Patient seen lying in bed on venturi mask. Awake and alert. Reviewed renal plan of care with patient. Objective - Vital Signs Vital signs: Vital Signs - 12hr 09/29/17 09/29/17 09/29/17 23:00 23:10 23:11 Temperature Pulse Rate 103 H 89 89 Respiratory 26 H Rate Blood Pressure 119/72 119/72 Blood Pressure [Left] O2 Sat by Pulse 95 Oximetry 09/29/17 09/30/17 09/30/17 23:16 00:09 06:52 Temperature 98.1 F Pulse Rate 106 H 77 Respiratory 20 22 20 Rate Blood Pressure 85/38 109/70 Blood Pressure [Left] O2 Sat by Pulse 98 99 Oximetry 09/30/17 09/30/17 09/30/17 06:57 08:31 10:34 Temperature 98.3 F Pulse Rate 97 H 98 H 77 Respiratory 20 Rate Blood Pressure 109/70 109/70 Blood Pressure 111/63 [Left] O2 Sat by Pulse 90 Oximetry - General Appearance General appearance: well-developed, appears stated age, fatigue EENT: ATNC, PERRL, hearing intact, vision intact Neck: no JVD, supple Respiratory: Present: Decreased Breath Sounds Cardiology: tachycardia, S1S2 Gastrointestinal: normoactive bowel sounds Integumentary: warm and dry Neurologic: alert and oriented x3 Musculoskeletal: other (trace edema) - Lab 09/30/17 05:21 09/30/17 05:21 Most recent lab results Calcium 7.9 mg/dL (8.4-10.2) L 09/30/17 05:21 Phosphorus 3.30 mg/dL (2.5-4.5) 09/30/17 05:21 Magnesium 1.70 mg/dL (1.7-2.3) 09/26/17 05:35
[2017-09-30] MEDS: LEVAQUIN PO SCH (12:29)
--- NOTE | 2017-09-30 16:30 | Ultrasound Report ---
FINAL REPORT PROCEDURE: US RENAL BILAT TECHNIQUE: Real-time sonography in multiple planes of the kidneys, ureters and urinary bladder was performed with image documentation. CPT 93928 HISTORY: Renal failure COMPARISON: No prior studies are available for comparison. FINDINGS: The echogenicity of the renal cortex bilaterally is mildly diffusely increased consistent with chronic renal parenchymal disease. No masses or hydronephrosis visualized. No renal calculi are seen. The right kidney measures 13.0 x 7.6 x 6.1 centimeter. The left kidney measures 13.1 x 8.2 x 6.2 centimeter. The urinary bladder showed no focal abnormality. IMPRESSION: Echogenicity the renal cortex of both kidneys appears mildly diffusely increased suggesting chronic renal parenchymal disease. The kidneys are otherwise unremarkable. There is no hydronephrosis.
[2017-09-30] MEDS: ATIVAN IV PRN (21:11)
--- NOTE | 2017-09-30 21:26 | XRay Report ---
FINAL REPORT PROCEDURE: XR CHEST 1V AP TECHNIQUE: Chest radiograph anteroposterior view. CPT 28207 HISTORY: Re-evaluate pneumonia COMPARISON: Prior chest x-ray 09/22/2017 FINDINGS: Cardiomegaly is unchanged. The pulmonary vasculature is not distended. There is increasing alveolar density in the right perihilar region superiorly. There is stable alveolar density in the right lower lobe and left perihilar region as well as in the left lung base. No effusions are identified. No acute bony abnormalities are visualized. IMPRESSION: Persistent infiltrates right and left lungs as described with new alveolar density right upper lobe indicating new infiltrate. Cardiomegaly.
[2017-09-30] MEDS: LEVEMIR SUB-Q SCH (23:42)
[2017-10-01] MEDS: BIDIL 20/37.5MG PO SCH ×3 (06:01→22:52)
[2017-10-01 07:16] LABS: Basophils % (Auto) 0.5 % (0.0-1.8); Eosinophils # (Auto) 0.4 K/mm3 (0.0-0.4); Eosinophils % (Auto) 3.6 % (0.0-4.3); Hematocrit 33.6 % (35.5-45.6); Hemoglobin 11.3 gm/dl (11.8-15.2); Lymphocytes # (Auto) 1.1 K/mm3 (1.2-5.4); Lymphocytes % (Auto) 11.2 % (13.4-35.0); Mean Corpuscular HGB Conc 34 % (32-34); Mean Corpuscular Hemoglobin 28 pg (28-32); Mean Corpuscular Volume 84 fl (84-94); Monocytes % (Auto) 10.2 % (0.0-7.3); Platelet Count 400 K/mm3 (140-440); Red Blood Count 3.99 M/mm3 (3.65-5.03)
[2017-10-01] MEDS: NOVOLOG SUB-Q SCH ×3 (08:13→22:00)
[2017-10-01] MEDS: BABY ASPIRIN PO SCH (09:11)
[2017-10-01] MEDS: COREG PO SCH ×2 (09:12→22:53)
[2017-10-01] MEDS: LASIX IV SCH (09:13)
[2017-10-01] MEDS: PROTONIX PO SCH (09:13)
[2017-10-01] MEDS: LOVENOX SUB-Q SCH (09:13)
[2017-10-01] MEDS: TUMS PO PRN ×2 (09:23→17:35)
--- NOTE | 2017-10-01 10:29 | Progress Note ---
Assessment and Plan - Patient Problems (1) Acute respiratory failure with hypoxia Current Visit: Yes Status: Acute Plan to address problem: On Albuterol, tamiflu Possibly secondary to bilateral pneumonia, on levaquin and zyvox On Lasix 40 mg IV daily Pulmonology on board, follow up recs (2) Bilateral pneumonia Current Visit: Yes Status: Acute Qualifiers: Pneumonia type: due to unspecified organism Lung location: unspecified part of lung Qualified Code(s): J18.9 - Pneumonia, unspecified organism Plan to address problem: On Levaquin and zyvox As per primary team (3) Acute renal failure (ARF) Current Visit: Yes Status: Acute Plan to address problem: Renal function reviewed, SCr level was 4.5 today, yesterday's SCr level was 4.5 Acute Renal Failure possibly secondary to ATN worsened in setting of sepsis, cardiorenal syndrome, possible AIN from antibiotic use No acute indication for initiation of Hemodialysis today, but will continue to monitor renal function daily for possible need for initiation of HD. Patient is agreeable to starting HD if recommended Renally dose medications S/p renal ultrasound showed no hydronephrosis Obtain daily weight Lyles Catheter: No Strict intake and output - no output recorded, but patient reports urinating about 10 times in the past 24 hours. Advised patient to save his urine for measurement Renal plan discussed with Dr Flores Continue supportive therapy (4) Hyponatremia Current Visit: Yes Status: Acute Plan to address problem: Labs reviewed, serum sodium level increased to 130 today, yesterday's serum sodium level was 127 Maintain fluid restriction of 1 liter per day On Lasix 40 mg IV daily (5) Systolic heart failure Current Visit: Yes Status: Acute Plan to address problem: Cardiology on board, EF 10-15%, follow up recs (6) Diabetes mellitus type 2, insulin dependent Current Visit: No Status: Acute Plan to address problem: On insulin As per primary team Subjective Date of service: 10/01/17 Principal diagnosis: Acute Hypoxemic Resp Failure; Bilateral Pulmonary Infiltrates; HFrEF Interval history: Patient reports having abdominal discomfort, states he is lactulose intolerant, ate cereal with fat free skim milk this morning for breakfast. No family at bedside at time of my examination. Objective - Vital Signs Vital signs: Vital Signs - 12hr 09/30/17 10/01/17 10/01/17 23:49 00:22 02:42 Temperature 98.9 F Pulse Rate 104 H 104 H Pulse Rate [ Radial] Respiratory 18 Rate Blood Pressure 131/84 Blood Pressure 134/84 [Left] O2 Sat by Pulse 90 Oximetry 10/01/17 10/01/17 10/01/17 02:55 05:25 06:01 Temperature 98 F Pulse Rate 104 H 103 H 103 H Pulse Rate [ Radial] Respiratory 18 Rate Blood Pressure 138/90 Blood Pressure 138/90 [Left] O2 Sat by Pulse 90 Oximetry 10/01/17 10/01/17 10/01/17 07:50 09:12 09:28 Temperature 98.9 F Pulse Rate 106 H 106 H Pulse Rate [ 105 H Radial] Respiratory 24 Rate Blood Pressure 138/85 138/85 Blood Pressure [Left] O2 Sat by Pulse 86 Oximetry - General Appearance General appearance: well-developed (no acute distress) EENT: ATNC Neck: no JVD Respiratory: Present: Other (Lung sounds decreased bilaterally, unlabored) Cardiology: regular, S1S2 Gastrointestinal: normoactive bowel sounds (generalized abdominal discomfort/ pain) Integumentary: warm and dry Neurologic: alert and oriented x3 Musculoskeletal: other (trace edema to both lower extremities) Psychiatric: mood/affect appropriate - Lab 10/01/17 06:03 10/01/17 06:03 Most recent lab results Calcium 8.0 mg/dL (8.4-10.2) L 10/01/17 06:03 Phosphorus 3.30 mg/dL (2.5-4.5) 09/30/17 05:21 Magnesium 1.70 mg/dL (1.7-2.3) 09/26/17 05:35
--- NOTE | 2017-10-01 11:04 | Progress Note ---
Assessment and Plan Pneumonia Chronic systolic heart failure Acute renal failure Cardiomyopathy, etiology unclear EF 10-15% on echocardiogram. Diabetes Hypertension Hyperlipidemia Recommendations: Continue aggressive medical therapy for systolic heart failure including IV milrinone. Ischemic cardiac workup deferred for now until fluid overload and renal failure resolved. Subjective Date of service: 10/01/17 Principal diagnosis: Acute Hypoxemic Resp Failure; Bilateral Pulmonary Infiltrates; HFrEF Interval history: Patient reports continued shortness of breath. No distress noted. Venturi mask in place. Objective Vital Signs Temp Pulse Pulse Resp BP BP Pulse Ox 10/01/17 09:28 105 H 10/01/17 09:12 106 H 138/85 10/01/17 07:50 98.9 F 106 H 24 138/85 86 10/01/17 06:01 103 H 138/90 10/01/17 05:25 98 F 103 H 18 138/90 90 10/01/17 02:55 104 H 10/01/17 02:42 104 H 10/01/17 00:22 98.9 F 104 H 18 134/84 90 09/30/17 23:49 131/84 09/30/17 21:16 24 09/30/17 21:10 110 H 137/91 09/30/17 21:09 110 H 137/91 09/30/17 20:14 110 H 24 94 09/30/17 20:02 97.3 F L 107 H 18 137/91 95 09/30/17 19:19 107 H 137/91 94 09/30/17 16:00 97.9 F 89 20 118/86 96 09/30/17 15:00 101 H 133/89 - Physical Examination General: No Apparent Distress HEENT: Positive: PERRL Cardiac: Positive: Reg Rate and Rhythm Neuro: Positive: Grossly Intact - Labs and Meds CBC 10/01/17 Range/Units 06:03 WBC 9.8 (4.5-11.0) K/mm3 RBC 3.99 (3.65-5.03) M/mm3 Hgb 11.3 L (11.8-15.2) gm/dl Hct 33.6 L (35.5-45.6) % Plt Count 400 (140-440) K/mm3 Lymph # 1.1 L (1.2-5.4) K/mm3 Eddy # 1.0 H (0.0-0.8) K/mm3 Eos # 0.4 (0.0-0.4) K/mm3 Baso # 0.0 (0.0-0.1) K/mm3 Comprehensive Metabolic Panel 10/01/17 Range/Units 06:03 Sodium 130 L (137-145) mmol/L Potassium 4.4 (3.6-5.0) mmol/L Chloride 92.3 L (98-107) mmol/L Carbon Dioxide 23 (22-30) mmol/L BUN 53 H (9-20) mg/dL Creatinine 4.5 H (0.8-1.5) mg/dL Glucose 83 (75-100) mg/dL Calcium 8.0 L (8.4-10.2) mg/dL - Imaging and Cardiology EKG: image reviewed
--- NOTE | 2017-10-01 11:07 | Progress Note ---
Assessment and Plan Assessment and plan: Acute hypoxic respiratory failure - BIPAP as clinically indicated -Etiology secondary to bilateral pneumonia Acute Renal failure -Etiology, likely secondary to LEÓN from ATN/sepsis and possible Acute Interstitial Nephritis secondary to antibiotics use. -Nephrology Discussed possible need for initiation of hemodialysis if his renal function continues to worsen. Patient agreeable to HD if recommended -Assess need for HD on daily basis -Avoid Nephrotoxic agents -Renally dose medications -Obtain daily weights -Monitor intake and output -Monitor renal function closely -Nephrology following Sepsis -Present on admission. -Etiology secondary to pneumonia. -follow up Legionella urine antigen, Streptococcus pneumoniae urine antigen -Blood cultures thus far negative. -continue abx per ID -continue tamiflu day 4 of 5 Bilateral pneumonia - Worsening bilateral infiltrates - On IV antibiotics as above - Pulmonary consult appreciated -Check chest x-ray in a.m. Cardiomyopathy - EF of 10-15%, systolic dysfunction - continue with CHF medications - Cardiology following - Lexiscan stress test to be done once stable. Acute on chronic systolic heart failure. -Continue aggressive medical therapy with IV milrinone and IV diuresis. 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 History Interval history: No new issues overnight. Hospitalist Physical - Constitutional Vitals: Temp Pulse Resp BP Pulse Ox 98.9 F 105 H 24 138/85 86 10/01/17 07:50 10/01/17 09:28 10/01/17 07:50 10/01/17 09:12 10/01/17 07:50 General appearance: Present: no acute distress - EENT Eyes: Present: PERRL, EOM intact ENT: hearing intact, clear oral mucosa, dentition normal - Neck Neck: Present: supple, normal ROM - Respiratory Respiratory effort: normal Respiratory: bilateral: CTA - Cardiovascular Rhythm: regular Heart Sounds: Present: S1 & S2. Absent: gallop, rub - Extremities Extremities: no ischemia, No edema, Full ROM - Abdominal General gastrointestinal: soft, non-tender, non-distended, normal bowel sounds - Integumentary Integumentary: Present: clear, warm, dry - Neurologic Neurologic: CNII-XII intact, moves all extremities Results - Labs CBC & Chem 7: 10/01/17 06:03 10/01/17 06:03 Labs: Laboratory Last Values WBC 9.8 K/mm3 (4.5-11.0) 10/01/17 06:03 RBC 3.99 M/mm3 (3.65-5.03) 10/01/17 06:03 Hgb 11.3 gm/dl (11.8-15.2) L 10/01/17 06:03 Hct 33.6 % (35.5-45.6) L 10/01/17 06:03 MCV 84 fl (84-94) 10/01/17 06:03 MCH 28 pg (28-32) 10/01/17 06:03 MCHC 34 % (32-34) 10/01/17 06:03 RDW 15.0 % (13.2-15.2) 10/01/17 06:03 Plt Count 400 K/mm3 (140-440) 10/01/17 06:03 Lymph % (Auto) 11.2 % (13.4-35.0) L 10/01/17 06:03 [place] % (Auto) 10.2 % (0.0-7.3) H 10/01/17 06:03 Eos % (Auto) 3.6 % (0.0-4.3) 10/01/17 06:03 Baso % (Auto) 0.5 % (0.0-1.8) 10/01/17 06:03 Lymph # 1.1 K/mm3 (1.2-5.4) L 10/01/17 06:03 [place] # 1.0 K/mm3 (0.0-0.8) H 10/01/17 06:03 Eos # 0.4 K/mm3 (0.0-0.4) 10/01/17 06:03 Baso # 0.0 K/mm3 (0.0-0.1) 10/01/17 06:03 Seg Neutrophils % 74.5 % (40.0-70.0) H 10/01/17 06:03 Seg Neutrophils # 7.3 K/mm3 (1.8-7.7) 10/01/17 06:03 POC ABG pH 7.459 (7.35-7.45) H 09/23/17 15:04 POC ABG pCO2 34.8 (35-45) L 09/23/17 15:04 POC ABG pO2 54 (80-105) L 09/23/17 15:04 POC ABG HCO3 24.7 09/23/17 15:04 POC ABG Total CO2 26 09/23/17 15:04 POC ABG O2 Sat 89 09/23/17 15:04 POC ABG Base Excess 1 09/23/17 15:04 FiO2 21 % 09/23/17 15:04 Sodium 130 mmol/L (137-145) L 10/01/17 06:03 Potassium 4.4 mmol/L (3.6-5.0) 10/01/17 06:03 Chloride 92.3 mmol/L (98-107) L 10/01/17 06:03 Carbon Dioxide 23 mmol/L (22-30) 10/01/17 06:03 Anion Gap 19 mmol/L 10/01/17 06:03 BUN 53 mg/dL (9-20) H 10/01/17 06:03 Creatinine 4.5 mg/dL (0.8-1.5) H 10/01/17 06:03 Estimated GFR 17 ml/min 10/01/17 06:03 BUN/Creatinine Ratio 12 % 10/01/17 06:03 Glucose 83 mg/dL (75-100) 10/01/17 06:03 POC Glucose 141 (70-105) H 09/30/17 21:44 Osmolality 299 Mosm/kg 09/30/17 05:21 Calcium 8.0 mg/dL (8.4-10.2) L 10/01/17 06:03 Phosphorus 3.30 mg/dL (2.5-4.5) 09/30/17 05:21 Magnesium 1.70 mg/dL (1.7-2.3) 09/26/17 05:35 Total Creatine Kinase 170 units/L (55-170) 09/23/17 04:10 CK-MB (CK-2) 1.4 ng/mL (0.0-4.0) 09/23/17 04:10 CK-MB (CK-2) Rel Index 0.8 (0-4) 09/23/17 04:10 Troponin T 0.287 ng/mL (0.00-0.029) H* 09/23/17 04:10 C-Reactive Protein 34.90 mg/dL (0.00-1.30) H 09/27/17 21:18 NT-Pro-B Natriuret Pep 5093 pg/mL (0-450) H 09/22/17 21:31 Triglycerides 226 mg/dL (2-149) H 09/22/17 21:31 Cholesterol 235 mg/dL (50-199) H 09/22/17 21:31 LDL Cholesterol Direct 164 mg/dL (50-130) H 09/22/17 21:31 HDL Cholesterol 26 mg/dL (40-59) L 09/22/17 21:31 Cholesterol/HDL Ratio 9.03 % 09/22/17 21:31 Vancomycin Trough 36.3 ug/mL (5.0-20.0) H 09/28/17 07:00 HIV-1 RNA PCR copies/ml TNR 09/27/17 21:18 HIV-1 RNA (PCR) log TNR 09/27/17 21:18 HIV 1&2 Antibody Rapid Non react (Non React) 09/27/17 21:18 HIV P24 Antigen Non react (Non React) 09/27/17 21:18
--- NOTE | 2017-10-01 19:24 | Progress Note ---
Assessment and Plan Patient resting on Venturi mask ,FIO2 50%.O2 saturation 97% . No complaint of chest pain or shortness of breath at this time. - Patient Problems (1) Bilateral pleural effusion Current Visit: Yes Status: Acute Plan to address problem: Ultrasound of chest not done yet. (2) Bilateral pneumonia Current Visit: Yes Status: Acute Qualifiers: Pneumonia type: due to unspecified organism Lung location: unspecified part of lung Qualified Code(s): J18.9 - Pneumonia, unspecified organism Plan to address problem: Patient is on Levaquine and Zyvox. (3) Acute congestive heart failure Current Visit: Yes Status: Acute Qualifiers: Congestive heart failure type: unspecified Qualified Code(s): I50.9 - Heart failure, unspecified Plan to address problem: Management as per primary care and cardiology. (4) Diabetes mellitus type 2, insulin dependent Current Visit: No Status: Acute Plan to address problem: Management as per primary care. (5) Obesity (BMI 30-39.9) Current Visit: No Status: Acute Plan to address problem: Recommend to loose weight. Diet and exercise. (6) Sleep apnea Current Visit: No Status: Acute Plan to address problem: BIPAP 16/, rate 16, FIO2 50%. Subjective Date of service: 10/01/17 Principal diagnosis: Acute Hypoxemic Resp Failure; Bilateral Pulmonary Infiltrates; HFrEF Interval history: Patient resting on Venturi mask ,FIO2 50%.O2 saturation 97% . No complaint of chest pain or shortness of breath at this time. Objective Vital Signs - 12hr 10/01/17 10/01/17 10/01/17 07:50 09:12 09:28 Temperature 98.9 F Pulse Rate 106 H 106 H Pulse Rate [ 105 H Radial] Respiratory 24 Rate Blood Pressure 138/85 138/85 O2 Sat by Pulse 86 Oximetry 10/01/17 10/01/17 10/01/17 12:00 15:08 17:21 Temperature Pulse Rate 114 H 109 H Pulse Rate [ Radial] Respiratory Rate Blood Pressure 138/65 O2 Sat by Pulse 97 Oximetry Constitutional: no acute distress, asleep Eyes: non-icteric ENT: oropharynx moist, other (No thyromegaly) Neck: supple, no lymphadenopathy, no JVD Effort: mildly labored Ascultation: Bilateral: diminished breath sounds, rales (bases) Percussion: Bilateral: not dull Cardiovascular: regular rate and rhythm, murmur noted, other (no rubs) Gastrointestinal: normoactive bowel sounds, soft, non-tender, non-distended, other (no palpable HSM) Integumentary: normal Extremities: no cyanosis, pulses normal, no ischemia or petechiae, edema Neurologic: normal mental status, non-focal exam, pupils equal and round, CN II- XII normal Psychiatric: mood appropriate, affect normal CBC and BMP: 10/01/17 06:03 10/01/17 06:03 ABG, PT/INR, D-dimer: ABG POC ABG pH 7.459 (7.35-7.45) H 09/23/17 15:04 POC ABG pCO2 34.8 (35-45) L 09/23/17 15:04 POC ABG pO2 54 (80-105) L 09/23/17 15:04 POC ABG HCO3 24.7 09/23/17 15:04 POC ABG Total CO2 26 09/23/17 15:04 POC ABG O2 Sat 89 09/23/17 15:04 Abnormal lab findings: Abnormal Labs 09/22/17 09/22/17 09/22/17 21:30 21:31 21:31 WBC RBC Hgb Hct MCH RDW 15.3 H Lymph % (Auto) [place] % (Auto) 9.6 H Eos % (Auto) Lymph # [place] # 0.9 H Seg Neutrophils % 72.0 H Seg Neutrophils # POC ABG pH POC ABG pCO2 POC ABG pO2 Sodium Chloride Carbon Dioxide BUN Creatinine Glucose POC Glucose Calcium Total Creatine Kinase 371 H Troponin T 0.260 H* C-Reactive Protein NT-Pro-B Natriuret Pep 5093 H Triglycerides 226 H Cholesterol 235 H LDL Cholesterol Direct 164 H HDL Cholesterol 26 L Vancomycin Trough 09/22/17 09/22/17 09/23/17 22:54 22:54 04:00 WBC RBC Hgb Hct MCH RDW Lymph % (Auto) [place] % (Auto) 11.9 H Eos % (Auto) Lymph # [place] # Seg Neutrophils % Seg Neutrophils # POC ABG pH POC ABG pCO2 POC ABG pO2 Sodium 129 L Chloride 91.6 L Carbon Dioxide BUN Creatinine 0.7 L Glucose 256 H POC Glucose Calcium 7.9 L Total Creatine Kinase 211 H Troponin T 0.344 H* D C-Reactive Protein NT-Pro-B Natriuret Pep Triglycerides Cholesterol LDL Cholesterol Direct HDL Cholesterol Vancomycin Trough 09/23/17 09/23/17 09/23/17 04:00 04:10 09:09 WBC RBC Hgb Hct MCH RDW Lymph % (Auto) [place] % (Auto) Eos % (Auto) Lymph # [place] # Seg Neutrophils % Seg Neutrophils # POC ABG pH POC ABG pCO2 POC ABG pO2 Sodium 136 L D Chloride 95.3 L Carbon Dioxide BUN Creatinine Glucose 181 H POC Glucose 166 H Calcium 7.7 L Total Creatine Kinase Troponin T 0.287 H* C-Reactive Protein NT-Pro-B Natriuret Pep Triglycerides Cholesterol LDL Cholesterol Direct HDL Cholesterol Vancomycin Trough 09/23/17 09/23/17 09/23/17 11:40 13:19 15:04 WBC RBC Hgb Hct MCH RDW Lymph % (Auto) [place] % (Auto) Eos % (Auto) Lymph # [place] # Seg Neutrophils % Seg Neutrophils # POC ABG pH 7.459 H POC ABG pCO2 34.8 L POC ABG pO2 54 L Sodium Chloride Carbon Dioxide BUN Creatinine Glucose POC Glucose 221 H 267 H Calcium Total Creatine Kinase Troponin T C-Reactive Protein NT-Pro-B Natriuret Pep Triglycerides Cholesterol LDL Cholesterol Direct HDL Cholesterol Vancomycin Trough 09/23/17 09/23/17 09/24/17 15:57 22:07 04:40 WBC RBC Hgb Hct MCH RDW Lymph % (Auto) [place] % (Auto) 11.4 H Eos % (Auto) Lymph # [place] # Seg Neutrophils % Seg Neutrophils # POC ABG pH POC ABG pCO2 POC ABG pO2 Sodium Chloride Carbon Dioxide BUN Creatinine Glucose POC Glucose 281 H 166 H Calcium Total Creatine Kinase Troponin T C-Reactive Protein NT-Pro-B Natriuret Pep Triglycerides Cholesterol LDL Cholesterol Direct HDL Cholesterol Vancomycin Trough 09/24/17 09/24/17 09/24/17 04:40 08:42 12:17 WBC RBC Hgb Hct MCH RDW Lymph % (Auto) [place] % (Auto) Eos % (Auto) Lymph # [place] # Seg Neutrophils % Seg Neutrophils # POC ABG pH POC ABG pCO2 POC ABG pO2 Sodium 133 L Chloride 95.6 L Carbon Dioxide BUN Creatinine 0.7 L Glucose 251 H POC Glucose 173 H 209 H Calcium 7.8 L Total Creatine Kinase Troponin T C-Reactive Protein NT-Pro-B Natriuret Pep Triglycerides Cholesterol LDL Cholesterol Direct HDL Cholesterol Vancomycin Trough 09/24/17 09/24/17 09/25/17 16:13 21:21 12:44 WBC RBC Hgb Hct MCH RDW Lymph % (Auto) [place] % (Auto) Eos % (Auto) Lymph # [place] # Seg Neutrophils % Seg Neutrophils # POC ABG pH POC ABG pCO2 POC ABG pO2 Sodium Chloride Carbon Dioxide BUN Creatinine Glucose POC Glucose 248 H 152 H 185 H Calcium Total Creatine Kinase Troponin T C-Reactive Protein NT-Pro-B Natriuret Pep Triglycerides Cholesterol LDL Cholesterol Direct HDL Cholesterol Vancomycin Trough 09/25/17 09/25/17 09/26/17 17:18 23:10 05:35 WBC 15.6 H RBC Hgb Hct MCH RDW Lymph % (Auto) [place] % (Auto) Eos % (Auto) Lymph # [place] # Seg Neutrophils % 78.5 H Seg Neutrophils # 12.2 H POC ABG pH POC ABG pCO2 POC ABG pO2 Sodium Chloride Carbon Dioxide BUN Creatinine Glucose POC Glucose 186 H 187 H Calcium Total Creatine Kinase Troponin T C-Reactive Protein NT-Pro-B Natriuret Pep Triglycerides Cholesterol LDL Cholesterol Direct HDL Cholesterol Vancomycin Trough 09/26/17 09/26/17 09/26/17 05:35 09:02 12:20 WBC RBC Hgb Hct MCH RDW Lymph % (Auto) [place] % (Auto) Eos % (Auto) Lymph # [place] # Seg Neutrophils % Seg Neutrophils # POC ABG pH POC ABG pCO2 POC ABG pO2 Sodium 133 L Chloride 95.2 L Carbon Dioxide BUN Creatinine 0.7 L Glucose 161 H POC Glucose 131 H 199 H Calcium 8.3 L Total Creatine Kinase Troponin T C-Reactive Protein NT-Pro-B Natriuret Pep Triglycerides Cholesterol LDL Cholesterol Direct HDL Cholesterol Vancomycin Trough 09/26/17 09/26/17 09/27/17 16:39 21:45 07:24 WBC RBC Hgb Hct MCH RDW Lymph % (Auto) [place] % (Auto) Eos % (Auto) Lymph # [place] # Seg Neutrophils % Seg Neutrophils # POC ABG pH POC ABG pCO2 POC ABG pO2 Sodium Chloride Carbon Dioxide BUN Creatinine Glucose POC Glucose 209 H 194 H 210 H Calcium Total Creatine Kinase Troponin T C-Reactive Protein NT-Pro-B Natriuret Pep Triglycerides Cholesterol LDL Cholesterol Direct HDL Cholesterol Vancomycin Trough 09/27/17 09/27/17 09/27/17 09:20 09:20 11:50 WBC RBC Hgb 11.0 L Hct MCH RDW Lymph % (Auto) [place] % (Auto) Eos % (Auto) Lymph # [place] # Seg Neutrophils % 77.2 H Seg Neutrophils # POC ABG pH POC ABG pCO2 POC ABG pO2 Sodium 134 L Chloride 96.1 L Carbon Dioxide BUN 21 H Creatinine Glucose 139 H POC Glucose Calcium 8.0 L Total Creatine Kinase Troponin T C-Reactive Protein NT-Pro-B Natriuret Pep Triglycerides Cholesterol LDL Cholesterol Direct HDL Cholesterol Vancomycin Trough 46.8 H 09/27/17 09/27/17 09/27/17 11:50 12:18 17:00 WBC RBC Hgb 10.7 L Hct 32.1 L D MCH RDW Lymph % (Auto) [place] % (Auto) Eos % (Auto) Lymph # [place] # Seg Neutrophils % 80.6 H Seg Neutrophils # POC ABG pH POC ABG pCO2 POC ABG pO2 Sodium Chloride Carbon Dioxide BUN Creatinine Glucose POC Glucose 274 H 169 H Calcium Total Creatine Kinase Troponin T C-Reactive Protein NT-Pro-B Natriuret Pep Triglycerides Cholesterol LDL Cholesterol Direct HDL Cholesterol Vancomycin Trough 09/27/17 09/27/17 09/27/17 21:18 23:28 23:49 WBC RBC Hgb Hct MCH RDW Lymph % (Auto) [place] % (Auto) Eos % (Auto) Lymph # [place] # Seg Neutrophils % Seg Neutrophils # POC ABG pH POC ABG pCO2 POC ABG pO2 Sodium Chloride Carbon Dioxide BUN Creatinine Glucose POC Glucose 251 H 233 H Calcium Total Creatine Kinase Troponin T C-Reactive Protein 34.90 H NT-Pro-B Natriuret Pep Triglycerides Cholesterol LDL Cholesterol Direct HDL Cholesterol Vancomycin Trough 09/28/17 09/28/17 09/28/17 07:00 07:00 07:00 WBC RBC 3.44 L Hgb 9.9 L Hct 29.6 L MCH RDW Lymph % (Auto) [place] % (Auto) Eos % (Auto) Lymph # 1.0 L [place] # Seg Neutrophils % 76.2 H Seg Neutrophils # POC ABG pH POC ABG pCO2 POC ABG pO2 Sodium 128 L Chloride 92.1 L Carbon Dioxide 20 L BUN 40 H Creatinine 3.1 H D Glucose 199 H POC Glucose Calcium 7.5 L Total Creatine Kinase Troponin T C-Reactive Protein NT-Pro-B Natriuret Pep Triglycerides Cholesterol LDL Cholesterol Direct HDL Cholesterol Vancomycin Trough 36.3 H 09/28/17 09/28/17 09/28/17 08:03 13:31 16:20 WBC RBC Hgb Hct MCH RDW Lymph % (Auto) [place] % (Auto) Eos % (Auto) Lymph # [place] # Seg Neutrophils % Seg Neutrophils # POC ABG pH POC ABG pCO2 POC ABG pO2 Sodium Chloride Carbon Dioxide BUN Creatinine Glucose POC Glucose 165 H 237 H 323 H Calcium Total Creatine Kinase Troponin T C-Reactive Protein NT-Pro-B Natriuret Pep Triglycerides Cholesterol LDL Cholesterol Direct HDL Cholesterol Vancomycin Trough 09/28/17 09/29/17 09/29/17 22:12 05:20 05:20 WBC RBC Hgb 11.4 L Hct 34.5 L MCH RDW Lymph % (Auto) 10.5 L [place] % (Auto) 9.1 H Eos % (Auto) Lymph # 0.5 L [place] # Seg Neutrophils % 75.8 H Seg Neutrophils # POC ABG pH POC ABG pCO2 POC ABG pO2 Sodium 128 L Chloride 91.6 L Carbon Dioxide 21 L BUN 51 H Creatinine 3.8 H Glucose 161 H POC Glucose 164 H Calcium Total Creatine Kinase Troponin T C-Reactive Protein NT-Pro-B Natriuret Pep Triglycerides Cholesterol LDL Cholesterol Direct HDL Cholesterol Vancomycin Trough 09/29/17 09/29/17 09/29/17 07:53 16:21 22:17 WBC RBC Hgb Hct MCH RDW Lymph % (Auto) [place] % (Auto) Eos % (Auto) Lymph # [place] # Seg Neutrophils % Seg Neutrophils # POC ABG pH POC ABG pCO2 POC ABG pO2 Sodium Chloride Carbon Dioxide BUN Creatinine Glucose POC Glucose 128 H 141 H 158 H Calcium Total Creatine Kinase Troponin T C-Reactive Protein NT-Pro-B Natriuret Pep Triglycerides Cholesterol LDL Cholesterol Direct HDL Cholesterol Vancomycin Trough 09/30/17 09/30/17 09/30/17 05:21 05:21 07:47 WBC RBC Hgb 10.3 L Hct 32.1 L MCH 27 L RDW Lymph % (Auto) 11.6 L [place] % (Auto) 9.3 H Eos % (Auto) 4.9 H Lymph # 0.8 L [place] # Seg Neutrophils % 73.6 H Seg Neutrophils # POC ABG pH POC ABG pCO2 POC ABG pO2 Sodium 127 L Chloride 90.9 L Carbon Dioxide BUN 52 H Creatinine 4.5 H Glucose 187 H POC Glucose 137 H Calcium 7.9 L Total Creatine Kinase Troponin T C-Reactive Protein NT-Pro-B Natriuret Pep Triglycerides Cholesterol LDL Cholesterol Direct HDL Cholesterol Vancomycin Trough 09/30/17 09/30/17 10/01/17 11:55 21:44 06:03 WBC RBC Hgb 11.3 L Hct 33.6 L MCH RDW Lymph % (Auto) 11.2 L [place] % (Auto) 10.2 H Eos % (Auto) Lymph # 1.1 L [place] # 1.0 H Seg Neutrophils % 74.5 H Seg Neutrophils # POC ABG pH POC ABG pCO2 POC ABG pO2 Sodium Chloride Carbon Dioxide BUN Creatinine Glucose POC Glucose 184 H 141 H Calcium Total Creatine Kinase Troponin T C-Reactive Protein NT-Pro-B Natriuret Pep Triglycerides Cholesterol LDL Cholesterol Direct HDL Cholesterol Vancomycin Trough 10/01/17 10/01/17 06:03 16:37 WBC RBC Hgb Hct MCH RDW Lymph % (Auto) [place] % (Auto) Eos % (Auto) Lymph # [place] # Seg Neutrophils % Seg Neutrophils # POC ABG pH POC ABG pCO2 POC ABG pO2 Sodium 130 L Chloride 92.3 L Carbon Dioxide BUN 53 H Creatinine 4.5 H Glucose POC Glucose 125 H Calcium 8.0 L Total Creatine Kinase Troponin T C-Reactive Protein NT-Pro-B Natriuret Pep Triglycerides Cholesterol LDL Cholesterol Direct HDL Cholesterol Vancomycin Trough Chest x-ray: report reviewed (Bilateral pulmonary infiltrates and new infiltrate right side.), image reviewed
--- NOTE | 2017-10-01 19:59 | Progress Note ---
Assessment and Plan Assessment: 1) Sepsis: resolved. Etiology most likely bilateral pneumonia. -blood cultures 09/22 ngtd -CRP = 34.90 -HIV non reactive 2) Bilateral pneumonia: ? post-influenza pneumonia ? CAP ?HAP on top of CHF exacerbation 3) CHF exaceration 4) Hyponatremia 5) DM-uncontrolled 6) Acute respiratory failure 7)ARF; -Creatinine = 4.5 Plan: -repeat CRP -follow up Legionella urine antigen, Streptococcus pneumoniae urine antigen - pending -continue zyvox 600 q 12 hrs day 4 and levaquin, day 5 renally dosed -stop tamiflu day 5 of 5 -monitor creatinine -Nephrology following -pulmonary following Ondina Ho Subjective Date of service: 10/01/17 Principal diagnosis: Acute Hypoxemic Resp Failure; Bilateral Pulmonary Infiltrates; HFrEF Interval history: Feels better, decreased cough and SOB. Microbiology: Blood cultures: 09/22 ngtd 09/10 negative Urine cultures: Respiratory cultures: Current Antimicrobials: Levaquin 09/28 zyvox 09/29 Tamiflu 09/27 Previous Antimicrobials: Zosyn 09/23 Vanco 09/23 Objective - Constitutional Vitals: Vital Signs Temp Pulse Resp BP Pulse Ox 98.9 F 109 H 24 138/65 97 10/01/17 07:50 10/01/17 17:21 10/01/17 07:50 10/01/17 15:08 10/01/17 12:00 Temperature -Last 24 Hours Temperature 98.9 F Temperature 98 F Temperature 98.9 F Temperature 97.3 F - Labs CBC & Chem 7: 10/01/17 06:03 10/01/17 06:03 Labs: Abnormal lab results 09/30/17 09/30/17 09/30/17 Range/Units 07:47 11:55 21:44 Hgb (11.8-15.2) gm/dl Hct (35.5-45.6) % Lymph % (Auto) (13.4-35.0) % [place] % (Auto) (0.0-7.3) % Lymph # (1.2-5.4) K/mm3 [place] # (0.0-0.8) K/mm3 Seg Neutrophils % (40.0-70.0) % Sodium (137-145) mmol/L Chloride (98-107) mmol/L BUN (9-20) mg/dL Creatinine (0.8-1.5) mg/dL POC Glucose 137 H 184 H 141 H (70-105) Calcium (8.4-10.2) mg/dL 10/01/17 10/01/17 10/01/17 Range/Units 06:03 06:03 16:37 Hgb 11.3 L (11.8-15.2) gm/dl Hct 33.6 L (35.5-45.6) % Lymph % (Auto) 11.2 L (13.4-35.0) % [place] % (Auto) 10.2 H (0.0-7.3) % Lymph # 1.1 L (1.2-5.4) K/mm3 [place] # 1.0 H (0.0-0.8) K/mm3 Seg Neutrophils % 74.5 H (40.0-70.0) % Sodium 130 L (137-145) mmol/L Chloride 92.3 L (98-107) mmol/L BUN 53 H (9-20) mg/dL Creatinine 4.5 H (0.8-1.5) mg/dL POC Glucose 125 H (70-105) Calcium 8.0 L (8.4-10.2) mg/dL
[2017-10-01] MEDS: TYLENOL PO PRN (22:51)
[2017-10-01] MEDS: LEVEMIR SUB-Q SCH (22:54)
[2017-10-01] MEDS: ZYVOX PO SCH (22:54)
[2017-10-02] MEDS: BIDIL 20/37.5MG PO SCH ×3 (05:57→21:50)
[2017-10-02 07:13] LABS: Basophils % (Auto) 0.5 % (0.0-1.8); Eosinophils # (Auto) 0.2 K/mm3 (0.0-0.4); Eosinophils % (Auto) 2.8 % (0.0-4.3); Hematocrit 34.5 % (35.5-45.6); Hemoglobin 11.5 gm/dl (11.8-15.2); Lymphocytes # (Auto) 0.9 K/mm3 (1.2-5.4); Lymphocytes % (Auto) 13.7 % (13.4-35.0); Mean Corpuscular HGB Conc 33 % (32-34); Mean Corpuscular Hemoglobin 28 pg (28-32); Mean Corpuscular Volume 85 fl (84-94); Monocytes # (Auto) 0.8 K/mm3 (0.0-0.8); Monocytes % (Auto) 12.4 % (0.0-7.3); Platelet Count 407 K/mm3 (140-440); Red Blood Count 4.06 M/mm3 (3.65-5.03); Red Cell Distribution Width 15.3 % (13.2-15.2)
[2017-10-02] MEDS: NOVOLOG SUB-Q SCH ×3 (08:00→23:56)
--- NOTE | 2017-10-02 10:29 | Progress Note ---
Assessment and Plan Assessment and plan: Acute hypoxic respiratory failure -BIPAP as clinically indicated -Etiology secondary to bilateral pneumonia Acute Renal failure -Etiology, likely secondary to LEÓN from ATN/sepsis and possible Acute Interstitial Nephritis secondary to antibiotics use. -Nephrology Discussed possible need for initiation of hemodialysis if his renal function continues to worsen. Patient agreeable to HD if recommended -Assess need for HD on daily basis -Avoid Nephrotoxic agents -Renally dose medications -Obtain daily weights -Monitor intake and output -Monitor renal function closely -Renal ultrasound showed no hydronephrosis -Nephrology following Sepsis -Present on admission. -Etiology secondary to pneumonia. -follow up Legionella urine antigen, Streptococcus pneumoniae urine antigen -Blood cultures thus far negative. -continue abx per ID -continue tamiflu day 4 of 5 Bilateral pneumonia - Worsening bilateral infiltrates - On IV antibiotics as above - Pulmonary consult appreciated -Check chest x-ray in a.m. Cardiomyopathy - EF of 10-15%, systolic dysfunction - continue with CHF medications - Cardiology following - Lexiscan stress test to be done once stable. Acute on chronic systolic heart failure. -Continue aggressive medical therapy with IV milrinone and IV diuresis. 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 History Interval history: No new issues overnight. Hospitalist Physical - Constitutional Vitals: Temp Pulse Resp BP Pulse Ox 97.3 F L 113 H 19 147/102 97 10/02/17 05:18 10/02/17 07:39 10/02/17 05:18 10/02/17 07:39 10/02/17 08:28 General appearance: Present: no acute distress - EENT Eyes: Present: PERRL, EOM intact ENT: hearing intact, clear oral mucosa, dentition normal - Neck Neck: Present: supple, normal ROM - Respiratory Respiratory effort: normal Respiratory: bilateral: CTA - Cardiovascular Rhythm: regular Heart Sounds: Present: S1 & S2. Absent: gallop, rub - Extremities Extremities: no ischemia, No edema, Full ROM - Abdominal General gastrointestinal: soft, non-tender, non-distended, normal bowel sounds - Integumentary Integumentary: Present: clear, warm, dry - Neurologic Neurologic: CNII-XII intact, moves all extremities Results - Labs CBC & Chem 7: 10/02/17 06:21 10/02/17 06:21 Labs: Laboratory Last Values WBC 6.5 K/mm3 (4.5-11.0) 10/02/17 06:21 RBC 4.06 M/mm3 (3.65-5.03) 10/02/17 06:21 Hgb 11.5 gm/dl (11.8-15.2) L 10/02/17 06:21 Hct 34.5 % (35.5-45.6) L 10/02/17 06:21 MCV 85 fl (84-94) 10/02/17 06:21 MCH 28 pg (28-32) 10/02/17 06:21 MCHC 33 % (32-34) 10/02/17 06:21 RDW 15.3 % (13.2-15.2) H 10/02/17 06:21 Plt Count 407 K/mm3 (140-440) 10/02/17 06:21 Lymph % (Auto) 13.7 % (13.4-35.0) 10/02/17 06:21 [place] % (Auto) 12.4 % (0.0-7.3) H 10/02/17 06:21 Eos % (Auto) 2.8 % (0.0-4.3) 10/02/17 06:21 Baso % (Auto) 0.5 % (0.0-1.8) 10/02/17 06:21 Lymph # 0.9 K/mm3 (1.2-5.4) L 10/02/17 06:21 [place] # 0.8 K/mm3 (0.0-0.8) 10/02/17 06:21 Eos # 0.2 K/mm3 (0.0-0.4) 10/02/17 06:21 Baso # 0.0 K/mm3 (0.0-0.1) 10/02/17 06:21 Seg Neutrophils % 70.6 % (40.0-70.0) H 10/02/17 06:21 Seg Neutrophils # 4.6 K/mm3 (1.8-7.7) 10/02/17 06:21 POC ABG pH 7.459 (7.35-7.45) H 09/23/17 15:04 POC ABG pCO2 34.8 (35-45) L 09/23/17 15:04 POC ABG pO2 54 (80-105) L 09/23/17 15:04 POC ABG HCO3 24.7 09/23/17 15:04 POC ABG Total CO2 26 09/23/17 15:04 POC ABG O2 Sat 89 09/23/17 15:04 POC ABG Base Excess 1 09/23/17 15:04 FiO2 21 % 09/23/17 15:04 Sodium 133 mmol/L (137-145) L 10/02/17 06:21 Potassium 4.9 mmol/L (3.6-5.0) 10/02/17 06:21 Chloride 92.7 mmol/L (98-107) L 10/02/17 06:21 Carbon Dioxide 25 mmol/L (22-30) 10/02/17 06:21 Anion Gap 20 mmol/L 10/02/17 06:21 BUN 51 mg/dL (9-20) H 10/02/17 06:21 Creatinine 4.7 mg/dL (0.8-1.5) H 10/02/17 06:21 Estimated GFR 17 ml/min 10/02/17 06:21 BUN/Creatinine Ratio 11 % 10/02/17 06:21 Glucose 113 mg/dL (75-100) H 10/02/17 06:21 POC Glucose 118 (70-105) H 10/02/17 07:47 Osmolality 299 Mosm/kg 09/30/17 05:21 Calcium 8.0 mg/dL (8.4-10.2) L 10/02/17 06:21 Phosphorus 3.30 mg/dL (2.5-4.5) 09/30/17 05:21 Magnesium 1.70 mg/dL (1.7-2.3) 09/26/17 05:35 Total Creatine Kinase 170 units/L (55-170) 09/23/17 04:10 CK-MB (CK-2) 1.4 ng/mL (0.0-4.0) 09/23/17 04:10 CK-MB (CK-2) Rel Index 0.8 (0-4) 09/23/17 04:10 Troponin T 0.287 ng/mL (0.00-0.029) H* 09/23/17 04:10 C-Reactive Protein 7.60 mg/dL (0.00-1.30) H 10/01/17 20:41 NT-Pro-B Natriuret Pep 5093 pg/mL (0-450) H 09/22/17 21:31 Triglycerides 226 mg/dL (2-149) H 09/22/17 21:31 Cholesterol 235 mg/dL (50-199) H 09/22/17 21:31 LDL Cholesterol Direct 164 mg/dL (50-130) H 09/22/17 21:31 HDL Cholesterol 26 mg/dL (40-59) L 09/22/17 21:31 Cholesterol/HDL Ratio 9.03 % 09/22/17 21:31 Urine Eosinophils None seen (None Seen) 09/29/17 Unknown Vancomycin Trough 36.3 ug/mL (5.0-20.0) H 09/28/17 07:00 HIV-1 RNA PCR copies/ml TNR 09/27/17 21:18 HIV-1 RNA (PCR) log TNR 09/27/17 21:18 HIV 1&2 Antibody Rapid Non react (Non React) 09/27/17 21:18 HIV P24 Antigen Non react (Non React) 09/27/17 21:18
--- NOTE | 2017-10-02 10:34 | Progress Note ---
Assessment and Plan Pneumonia Chronic systolic heart failure Acute renal failure Cardiomyopathy, etiology unclear EF 10-15% on echocardiogram. Diabetes Hypertension Hyperlipidemia Recommendations: Continue aggressive medical therapy for systolic heart failure including IV milrinone. Ischemic cardiac workup deferred for now until fluid overload and renal failure resolved. Subjective Date of service: 10/02/17 Principal diagnosis: Acute Hypoxemic Resp Failure; Bilateral Pulmonary Infiltrates; HFrEF Interval history: Patient reports continued shortness of breath. No distress noted. Venturi mask in place. Objective Vital Signs Temp Pulse Resp BP Pulse Ox 10/02/17 08:28 97 10/02/17 07:39 113 H 147/102 91 10/02/17 05:57 109 H 122/78 10/02/17 05:18 97.3 F L 109 H 19 122/78 90 10/01/17 23:17 99 10/01/17 22:53 118 H 133/96 10/01/17 22:52 118 H 133/96 10/01/17 22:51 20 10/01/17 22:46 99.3 F 117 H 19 133/96 90 10/01/17 22:00 122 H 10/01/17 18:19 98.0 F 115 H 20 157/108 88 10/01/17 17:21 109 H 10/01/17 15:08 114 H 138/65 10/01/17 12:00 97 10/01/17 11:41 98.8 F 107 H 22 138/92 89 - Physical Examination General: No Apparent Distress HEENT: Positive: PERRL Cardiac: Positive: Tachycardia Neuro: Positive: Grossly Intact - Labs and Meds CBC 10/02/17 Range/Units 06:21 WBC 6.5 (4.5-11.0) K/mm3 RBC 4.06 (3.65-5.03) M/mm3 Hgb 11.5 L (11.8-15.2) gm/dl Hct 34.5 L (35.5-45.6) % Plt Count 407 (140-440) K/mm3 Lymph # 0.9 L (1.2-5.4) K/mm3 [place] # 0.8 (0.0-0.8) K/mm3 Eos # 0.2 (0.0-0.4) K/mm3 Baso # 0.0 (0.0-0.1) K/mm3 Comprehensive Metabolic Panel 10/02/17 Range/Units 06:21 Sodium 133 L (137-145) mmol/L Potassium 4.9 (3.6-5.0) mmol/L Chloride 92.7 L (98-107) mmol/L Carbon Dioxide 25 (22-30) mmol/L BUN 51 H (9-20) mg/dL Creatinine 4.7 H (0.8-1.5) mg/dL Glucose 113 H (75-100) mg/dL Calcium 8.0 L (8.4-10.2) mg/dL - Imaging and Cardiology EKG: image reviewed
[2017-10-02] MEDS: LASIX IV SCH (11:41)
[2017-10-02] MEDS: LOVENOX SUB-Q SCH (11:50)
[2017-10-02] MEDS: LEVAQUIN PO SCH (11:51)
[2017-10-02] MEDS: PROTONIX PO SCH (11:51)
[2017-10-02] MEDS: COREG PO SCH ×2 (11:51→21:50)
[2017-10-02] MEDS: BABY ASPIRIN PO SCH (11:51)
[2017-10-02] MEDS: ZYVOX PO SCH ×2 (12:05→21:50)
--- NOTE | 2017-10-02 13:42 | Progress Note ---
Assessment and Plan Assessment: 1) Sepsis: resolved. Etiology most likely bilateral pneumonia. -blood cultures 09/22 ngtd -CRP = 34.90 --> 7.6 -HIV non reactive 2) Bilateral pneumonia: ? post-influenza pneumonia ? CAP ?HAP on top of CHF exacerbation -s/p tamiflu x 5 days 3) CHF exaceration 4) Hyponatremia 5) DM-uncontrolled 6) Acute respiratory failure 7)ARF: worsening Plan: -follow up Legionella urine antigen, Streptococcus pneumoniae urine antigen - pending -continue zyvox 600 q 12 hrs day 5 and levaquin, day 6 renally dosed -monitor creatinine I am covering this weekend Ondina Ho Subjective Date of service: 10/02/17 Principal diagnosis: Acute Hypoxemic Resp Failure; Bilateral Pulmonary Infiltrates; HFrEF Interval history: Feels better, still SOB Microbiology: Blood cultures: 09/22 ngtd 09/10 negative Urine cultures: Respiratory cultures: Current Antimicrobials: Levaquin 09/28 zyvox 09/29 Tamiflu 09/27 Previous Antimicrobials: Zosyn 09/23 Vanco 09/23 Objective - Exam Narrative Exam: General appearance: Alert in mild SOB on HF O2 Eyes: anicteric sclerae, moist conjunctivae; no lid-lag; PERRLA HENT: Atraumatic; oropharynx clear with moist mucous membranes and no mucosal ulcerations/no oral thrush; normal hard and soft palate. Normal external ears. Neck: Trachea midline; supple, no thyromegaly or lymphadenopathy Lungs: CTA CV: RRR, no murmurs Abdomen: Soft, non-tender; no masses or hepatosplenomegaly Extremities: No peripheral edema or extremity lymphadenopathy Skin: Normal temperature, turgor and texture; no rash, ulcers or subcutaneous nodules Psych: Appropriate affect, alert and oriented to person, place and time. Neuro: alert and oriented x 3. Moving all extermities Lines: No CVL / PICC - Constitutional Vitals: Vital Signs Temp Pulse Resp BP Pulse Ox 98.0 F 120 H 16 153/97 85 10/02/17 12:23 10/02/17 12:23 10/02/17 12:23 10/02/17 12:23 10/02/17 12:23 Temperature -Last 24 Hours Temperature 98.0 F Temperature 97.3 F Temperature 99.3 F Temperature 98.0 F - Labs CBC & Chem 7: 10/02/17 06:21 10/02/17 06:21 Labs: Abnormal lab results 10/01/17 10/01/17 10/01/17 Range/Units 16:37 20:41 21:47 Hgb (11.8-15.2) gm/dl Hct (35.5-45.6) % RDW (13.2-15.2) % [place] % (Auto) (0.0-7.3) % Lymph # (1.2-5.4) K/mm3 Seg Neutrophils % (40.0-70.0) % Sodium (137-145) mmol/L Chloride (98-107) mmol/L BUN (9-20) mg/dL Creatinine (0.8-1.5) mg/dL Glucose (75-100) mg/dL POC Glucose 125 H 115 H (70-105) Calcium (8.4-10.2) mg/dL C-Reactive Protein 7.60 H (0.00-1.30) mg/dL 10/02/17 10/02/17 10/02/17 Range/Units 06:21 06:21 07:47 Hgb 11.5 L (11.8-15.2) gm/dl Hct 34.5 L (35.5-45.6) % RDW 15.3 H (13.2-15.2) % [place] % (Auto) 12.4 H (0.0-7.3) % Lymph # 0.9 L (1.2-5.4) K/mm3 Seg Neutrophils % 70.6 H (40.0-70.0) % Sodium 133 L (137-145) mmol/L Chloride 92.7 L (98-107) mmol/L BUN 51 H (9-20) mg/dL Creatinine 4.7 H (0.8-1.5) mg/dL Glucose 113 H (75-100) mg/dL POC Glucose 118 H (70-105) Calcium 8.0 L (8.4-10.2) mg/dL C-Reactive Protein (0.00-1.30) mg/dL
--- NOTE | 2017-10-02 14:14 | Ultrasound Report ---
Sonogram of chest: History: Pleural effusion. Findings: Right chest volume 18.4 mL. Left chest volume 66.5 mL.
--- NOTE | 2017-10-02 14:47 | Progress Note ---
Assessment and Plan - Patient Problems (1) Acute renal failure (ARF) Current Visit: Yes Status: Acute Plan to address problem: Acute Renal failure secondary to Acute Tubular Necrosis secondary to Sepsis and possible Acute Interstitial Nephritis secondary to antibiotics use and Cardiorenal Syndrome. Renal labs reviewed. Serum creatinine rubens to 4.7 today. Lasix has been discontinued. Patient remains volume overloaded, remains to require venturi mask oxygen delivery-15L/min. Patient is agreeable for hemodialysis as he needs ultrafiltration Will consult vascular surgeon for vascular catheter placement Hemodialysis/UF ordered for today and tomorrow Avoid Nephrotoxic agents Renally dose medications Obtain daily weights Monitor intake and output- patient refused ye catheter placement UOP of 1200 ml recorded, however patient wears a diaper. Will order bladder scan Renal ultrasound reviewed-No Hydronephrosis or mass. Continue to monitor renal function closely (2) Bilateral pneumonia Current Visit: Yes Status: Acute Qualifiers: Pneumonia type: due to unspecified organism Lung location: unspecified part of lung Qualified Code(s): J18.9 - Pneumonia, unspecified organism Plan to address problem: Patient is on IV Levaquin and Zyvox (3) Systolic heart failure Current Visit: Yes Status: Acute Plan to address problem: Was on Milronone drip as per Cardiology (4) Diabetes mellitus type 2, insulin dependent Current Visit: No Status: Acute Plan to address problem: Insulin as per Primary team (5) Hyponatremia Current Visit: Yes Status: Acute Plan to address problem: Fluid restriction of 750 ml per No salt tablets due to CHF (6) Hypertension Current Visit: Yes Status: Acute Plan to address problem: Blood pressures are stable. Continue on Coreg. Subjective Date of service: 10/02/17 Principal diagnosis: Acute Hypoxemic Resp Failure; Bilateral Pulmonary Infiltrates; HFrEF Interval history: Patient seen lying in bed on venturi mask. Awake and alert. Reviewed renal plan of care with patient. Objective - Vital Signs Vital signs: Vital Signs - 12hr 10/02/17 10/02/17 10/02/17 05:18 05:57 07:39 Temperature 97.3 F L Pulse Rate 109 H 109 H 113 H Pulse Rate [ Apical] Respiratory 19 Rate Blood Pressure 122/78 122/78 147/102 O2 Sat by Pulse 90 91 Oximetry 10/02/17 10/02/17 10/02/17 08:28 11:26 11:29 Temperature Pulse Rate 109 H Pulse Rate [ 100 H Apical] Respiratory Rate Blood Pressure O2 Sat by Pulse 97 Oximetry 10/02/17 10/02/17 10/02/17 11:51 12:23 14:01 Temperature 98.0 F Pulse Rate 102 H 120 H 110 H Pulse Rate [ Apical] Respiratory 16 Rate Blood Pressure 153/97 152/97 O2 Sat by Pulse 85 Oximetry - General Appearance General appearance: appears stated age, fatigue EENT: ATNC, PERRL, hearing intact, vision intact Neck: no JVD, supple Respiratory: Present: Decreased Breath Sounds, Other (coarse breath sounds) Cardiology: tachycardia, S1S2 Gastrointestinal: normoactive bowel sounds Integumentary: warm and dry Neurologic: alert and oriented x3 Musculoskeletal: other (mild edema to bLE) - Lab 10/02/17 06:21 10/02/17 06:21 Most recent lab results Calcium 8.0 mg/dL (8.4-10.2) L 10/02/17 06:21 Phosphorus 3.30 mg/dL (2.5-4.5) 09/30/17 05:21 Magnesium 1.70 mg/dL (1.7-2.3) 09/26/17 05:35
[2017-10-02] MEDS ORDERED: HEPARIN/NS 5000 UNIT/500ML(CATH LAB) 500 ML IR ONE (15:59)
[2017-10-02] MEDS ORDERED: XYLOCAINE 2% INFILTRATI ONE (15:59)
[2017-10-02] MEDS ORDERED: NACL 0.9% 100 ML ONE (16:00)
[2017-10-02] MEDS: HEPARIN 10,000 UNITS/10 ML ONE ×2 (16:15→16:16)
--- NOTE | 2017-10-02 16:21 | Operative Report ---
Operative Report Operative Report: EXAM: 1. Ultrasound-guided puncture of the right internal jugular vein 2. Fluoroscopic-guided placement of a right internal jugular nontunneled noncuffed hemodialysis catheter. DATE: 10/02/17 INDICATION: Acute renal failure requiring hemodialysis. MEDICATIONS: Please see nursing report for full details. DEVICES: 15 cm dual lumen hemodialysis catheter STORES ASSISTANT: MARCIN VERDUGO MD CONTRAST: None PROCEDURE: The risks, benefits, and alternatives were discussed and informed consent was obtained. The patient was transported to the angiography suite in satisfactory/ stable condition and was transported onto the angiography table. The patient's right internal jugular vein was assessed with ultrasound and determined to be patent prior to procedure. The patient was prepped and draped in a sterile fashion. The puncture site was anesthetized. The right internal jugular vein was patent on ultrasound. Under sonographic guidance, the right internal jugular vein was punctured with a 21-gauge micropuncture needle and a 0.018 inch wire was advanced through the needle. Needle was exchanged for transitional dilator. The inner dilator and wire was removed and a 0.035 inch wire was advanced through the transitional dilator into the inferior vena cava. Over the 0.035 inch wire, serial dilatation was performed. The catheter was advanced over the wire and positioned centrally under fluoroscopic guidance. 2-0 Ethilon suture was used to secure the catheter. The catheter was charged with heparin 1000 units/mL of space. Sterile dressing and biopatch applied. The patient was transferred from the angiography suite back to the floor in stable condition. FINDINGS: 1. Excellent flow was obtained through the dialysis catheter with 20 mL syringes. 2. The catheter tip is in the right atrium. IMPRESSION: 1. Successful sonographically and fluoroscopically guided placement of a right internal jugular nontunneled noncuffed hemodialysis catheter.
[2017-10-02] MEDS ORDERED: NACL 0.9% 100 ML IV PRN (17:35)
--- NOTE | 2017-10-02 18:04 | Progress Note ---
Assessment and Plan Patient resting on Venturi mask ,FIO2 50%.O2 saturation 88% .Patient taking off the mask at times. Recommend to keep mask all the time. No complaint of chest pain or shortness of breath .Patient said he received dialysis today. - Patient Problems (1) Bilateral pleural effusion Current Visit: Yes Status: Acute Plan to address problem: Ultrasound of chest reported no significant pleural effusion. (2) Bilateral pneumonia Current Visit: Yes Status: Acute Qualifiers: Pneumonia type: due to unspecified organism Lung location: unspecified part of lung Qualified Code(s): J18.9 - Pneumonia, unspecified organism Plan to address problem: Patient is on Levaquine and Zyvox. (3) Acute congestive heart failure Current Visit: Yes Status: Acute Qualifiers: Congestive heart failure type: unspecified Qualified Code(s): I50.9 - Heart failure, unspecified Plan to address problem: Management as per primary care and cardiology. (4) Diabetes mellitus type 2, insulin dependent Current Visit: No Status: Acute Plan to address problem: Management as per primary care. (5) Obesity (BMI 30-39.9) Current Visit: No Status: Acute Plan to address problem: Recommend to loose weight. Diet and exercise. (6) Sleep apnea Current Visit: No Status: Acute Plan to address problem: BIPAP 20/02, rate 16, FIO2 50%. Subjective Date of service: 10/02/17 Principal diagnosis: Acute Hypoxemic Resp Failure; Bilateral Pulmonary Infiltrates; HFrEF Interval history: Patient resting on Venturi mask ,FIO2 50%.O2 saturation 88% .Patient taking off the mask at times. Recommend to keep mask all the time. No complaint of chest pain or shortness of breath .Patient said he received dialysis today. Objective Vital Signs - 12hr 10/02/17 10/02/17 10/02/17 07:39 08:28 11:26 Temperature Pulse Rate 113 H 109 H Pulse Rate [ Apical] Respiratory Rate Blood Pressure 147/102 O2 Sat by Pulse 91 97 Oximetry 10/02/17 10/02/17 10/02/17 11:29 11:51 12:23 Temperature 98.0 F Pulse Rate 102 H 120 H Pulse Rate [ 100 H Apical] Respiratory 16 Rate Blood Pressure 153/97 O2 Sat by Pulse 85 Oximetry 10/02/17 14:01 Temperature Pulse Rate 110 H Pulse Rate [ Apical] Respiratory Rate Blood Pressure 152/97 O2 Sat by Pulse Oximetry Constitutional: no acute distress, asleep Eyes: non-icteric ENT: oropharynx moist, other (No thyromegaly) Neck: supple, no lymphadenopathy, no JVD Effort: mildly labored Ascultation: Bilateral: diminished breath sounds, rales (bases) Percussion: Bilateral: not dull Cardiovascular: regular rate and rhythm, murmur noted, other (no rubs) Gastrointestinal: normoactive bowel sounds, soft, non-tender, non-distended, other (no palpable HSM) Integumentary: normal Extremities: no cyanosis, pulses normal, no ischemia or petechiae, edema Neurologic: normal mental status, non-focal exam, pupils equal and round, CN II- XII normal Psychiatric: mood appropriate, affect normal CBC and BMP: 10/02/17 06:21 10/02/17 06:21 ABG, PT/INR, D-dimer: ABG POC ABG pH 7.459 (7.35-7.45) H 09/23/17 15:04 POC ABG pCO2 34.8 (35-45) L 09/23/17 15:04 POC ABG pO2 54 (80-105) L 09/23/17 15:04 POC ABG HCO3 24.7 09/23/17 15:04 POC ABG Total CO2 26 09/23/17 15:04 POC ABG O2 Sat 89 09/23/17 15:04 Abnormal lab findings: Abnormal Labs 09/22/17 09/22/17 09/22/17 21:30 21:31 21:31 WBC RBC Hgb Hct MCH RDW 15.3 H Lymph % (Auto) [place] % (Auto) 9.6 H Eos % (Auto) Lymph # [place] # 0.9 H Seg Neutrophils % 72.0 H Seg Neutrophils # POC ABG pH POC ABG pCO2 POC ABG pO2 Sodium Chloride Carbon Dioxide BUN Creatinine Glucose POC Glucose Calcium Total Creatine Kinase 371 H Troponin T 0.260 H* C-Reactive Protein NT-Pro-B Natriuret Pep 5093 H Triglycerides 226 H Cholesterol 235 H LDL Cholesterol Direct 164 H HDL Cholesterol 26 L Vancomycin Trough Miscellaneous Test 09/22/17 09/22/17 09/23/17 22:54 22:54 04:00 WBC RBC Hgb Hct MCH RDW Lymph % (Auto) [place] % (Auto) 11.9 H Eos % (Auto) Lymph # [place] # Seg Neutrophils % Seg Neutrophils # POC ABG pH POC ABG pCO2 POC ABG pO2 Sodium 129 L Chloride 91.6 L Carbon Dioxide BUN Creatinine 0.7 L Glucose 256 H POC Glucose Calcium 7.9 L Total Creatine Kinase 211 H Troponin T 0.344 H* D C-Reactive Protein NT-Pro-B Natriuret Pep Triglycerides Cholesterol LDL Cholesterol Direct HDL Cholesterol Vancomycin Trough Miscellaneous Test 09/23/17 09/23/17 09/23/17 04:00 04:10 09:09 WBC RBC Hgb Hct MCH RDW Lymph % (Auto) [place] % (Auto) Eos % (Auto) Lymph # [place] # Seg Neutrophils % Seg Neutrophils # POC ABG pH POC ABG pCO2 POC ABG pO2 Sodium 136 L D Chloride 95.3 L Carbon Dioxide BUN Creatinine Glucose 181 H POC Glucose 166 H Calcium 7.7 L Total Creatine Kinase Troponin T 0.287 H* C-Reactive Protein NT-Pro-B Natriuret Pep Triglycerides Cholesterol LDL Cholesterol Direct HDL Cholesterol Vancomycin Trough Miscellaneous Test 09/23/17 09/23/17 09/23/17 11:40 13:19 15:04 WBC RBC Hgb Hct MCH RDW Lymph % (Auto) [place] % (Auto) Eos % (Auto) Lymph # [place] # Seg Neutrophils % Seg Neutrophils # POC ABG pH 7.459 H POC ABG pCO2 34.8 L POC ABG pO2 54 L Sodium Chloride Carbon Dioxide BUN Creatinine Glucose POC Glucose 221 H 267 H Calcium Total Creatine Kinase Troponin T C-Reactive Protein NT-Pro-B Natriuret Pep Triglycerides Cholesterol LDL Cholesterol Direct HDL Cholesterol Vancomycin Trough Miscellaneous Test 09/23/17 09/23/17 09/24/17 15:57 22:07 04:40 WBC RBC Hgb Hct MCH RDW Lymph % (Auto) [place] % (Auto) 11.4 H Eos % (Auto) Lymph # [place] # Seg Neutrophils % Seg Neutrophils # POC ABG pH POC ABG pCO2 POC ABG pO2 Sodium Chloride Carbon Dioxide BUN Creatinine Glucose POC Glucose 281 H 166 H Calcium Total Creatine Kinase Troponin T C-Reactive Protein NT-Pro-B Natriuret Pep Triglycerides Cholesterol LDL Cholesterol Direct HDL Cholesterol Vancomycin Trough Miscellaneous Test 09/24/17 09/24/17 09/24/17 04:40 08:42 12:17 WBC RBC Hgb Hct MCH RDW Lymph % (Auto) [place] % (Auto) Eos % (Auto) Lymph # [place] # Seg Neutrophils % Seg Neutrophils # POC ABG pH POC ABG pCO2 POC ABG pO2 Sodium 133 L Chloride 95.6 L Carbon Dioxide BUN Creatinine 0.7 L Glucose 251 H POC Glucose 173 H 209 H Calcium 7.8 L Total Creatine Kinase Troponin T C-Reactive Protein NT-Pro-B Natriuret Pep Triglycerides Cholesterol LDL Cholesterol Direct HDL Cholesterol Vancomycin Trough Miscellaneous Test 09/24/17 09/24/17 09/25/17 16:13 21:21 12:44 WBC RBC Hgb Hct MCH RDW Lymph % (Auto) [place] % (Auto) Eos % (Auto) Lymph # [place] # Seg Neutrophils % Seg Neutrophils # POC ABG pH POC ABG pCO2 POC ABG pO2 Sodium Chloride Carbon Dioxide BUN Creatinine Glucose POC Glucose 248 H 152 H 185 H Calcium Total Creatine Kinase Troponin T C-Reactive Protein NT-Pro-B Natriuret Pep Triglycerides Cholesterol LDL Cholesterol Direct HDL Cholesterol Vancomycin Trough Miscellaneous Test 09/25/17 09/25/17 09/26/17 17:18 23:10 05:35 WBC 15.6 H RBC Hgb Hct MCH RDW Lymph % (Auto) [place] % (Auto) Eos % (Auto) Lymph # [place] # Seg Neutrophils % 78.5 H Seg Neutrophils # 12.2 H POC ABG pH POC ABG pCO2 POC ABG pO2 Sodium Chloride Carbon Dioxide BUN Creatinine Glucose POC Glucose 186 H 187 H Calcium Total Creatine Kinase Troponin T C-Reactive Protein NT-Pro-B Natriuret Pep Triglycerides Cholesterol LDL Cholesterol Direct HDL Cholesterol Vancomycin Trough Miscellaneous Test 09/26/17 09/26/17 09/26/17 05:35 09:02 12:20 WBC RBC Hgb Hct MCH RDW Lymph % (Auto) [place] % (Auto) Eos % (Auto) Lymph # [place] # Seg Neutrophils % Seg Neutrophils # POC ABG pH POC ABG pCO2 POC ABG pO2 Sodium 133 L Chloride 95.2 L Carbon Dioxide BUN Creatinine 0.7 L Glucose 161 H POC Glucose 131 H 199 H Calcium 8.3 L Total Creatine Kinase Troponin T C-Reactive Protein NT-Pro-B Natriuret Pep Triglycerides Cholesterol LDL Cholesterol Direct HDL Cholesterol Vancomycin Trough Miscellaneous Test 09/26/17 09/26/17 09/27/17 16:39 21:45 07:24 WBC RBC Hgb Hct MCH RDW Lymph % (Auto) [place] % (Auto) Eos % (Auto) Lymph # [place] # Seg Neutrophils % Seg Neutrophils # POC ABG pH POC ABG pCO2 POC ABG pO2 Sodium Chloride Carbon Dioxide BUN Creatinine Glucose POC Glucose 209 H 194 H 210 H Calcium Total Creatine Kinase Troponin T C-Reactive Protein NT-Pro-B Natriuret Pep Triglycerides Cholesterol LDL Cholesterol Direct HDL Cholesterol Vancomycin Trough Miscellaneous Test 09/27/17 09/27/17 09/27/17 09:20 09:20 11:50 WBC RBC Hgb 11.0 L Hct MCH RDW Lymph % (Auto) [place] % (Auto) Eos % (Auto) Lymph # [place] # Seg Neutrophils % 77.2 H Seg Neutrophils # POC ABG pH POC ABG pCO2 POC ABG pO2 Sodium 134 L Chloride 96.1 L Carbon Dioxide BUN 21 H Creatinine Glucose 139 H POC Glucose Calcium 8.0 L Total Creatine Kinase Troponin T C-Reactive Protein NT-Pro-B Natriuret Pep Triglycerides Cholesterol LDL Cholesterol Direct HDL Cholesterol Vancomycin Trough 46.8 H Miscellaneous Test 09/27/17 09/27/17 09/27/17 11:50 12:18 17:00 WBC RBC Hgb 10.7 L Hct 32.1 L D MCH RDW Lymph % (Auto) [place] % (Auto) Eos % (Auto) Lymph # [place] # Seg Neutrophils % 80.6 H Seg Neutrophils # POC ABG pH POC ABG pCO2 POC ABG pO2 Sodium Chloride Carbon Dioxide BUN Creatinine Glucose POC Glucose 274 H 169 H Calcium Total Creatine Kinase Troponin T C-Reactive Protein NT-Pro-B Natriuret Pep Triglycerides Cholesterol LDL Cholesterol Direct HDL Cholesterol Vancomycin Trough Miscellaneous Test 09/27/17 09/27/17 09/27/17 21:18 21:19 23:28 WBC RBC Hgb Hct MCH RDW Lymph % (Auto) [place] % (Auto) Eos % (Auto) Lymph # [place] # Seg Neutrophils % Seg Neutrophils # POC ABG pH POC ABG pCO2 POC ABG pO2 Sodium Chloride Carbon Dioxide BUN Creatinine Glucose POC Glucose 251 H Calcium Total Creatine Kinase Troponin T C-Reactive Protein 34.90 H NT-Pro-B Natriuret Pep Triglycerides Cholesterol LDL Cholesterol Direct HDL Cholesterol Vancomycin Trough Miscellaneous Test Flexitest 1 H 09/27/17 09/28/17 09/28/17 23:49 07:00 07:00 WBC RBC 3.44 L Hgb 9.9 L Hct 29.6 L MCH RDW Lymph % (Auto) [place] % (Auto) Eos % (Auto) Lymph # 1.0 L [place] # Seg Neutrophils % 76.2 H Seg Neutrophils # POC ABG pH POC ABG pCO2 POC ABG pO2 Sodium 128 L Chloride 92.1 L Carbon Dioxide 20 L BUN 40 H Creatinine 3.1 H D Glucose 199 H POC Glucose 233 H Calcium 7.5 L Total Creatine Kinase Troponin T C-Reactive Protein NT-Pro-B Natriuret Pep Triglycerides Cholesterol LDL Cholesterol Direct HDL Cholesterol Vancomycin Trough Miscellaneous Test 09/28/17 09/28/17 09/28/17 07:00 08:03 13:31 WBC RBC Hgb Hct MCH RDW Lymph % (Auto) [place] % (Auto) Eos % (Auto) Lymph # [place] # Seg Neutrophils % Seg Neutrophils # POC ABG pH POC ABG pCO2 POC ABG pO2 Sodium Chloride Carbon Dioxide BUN Creatinine Glucose POC Glucose 165 H 237 H Calcium Total Creatine Kinase Troponin T C-Reactive Protein NT-Pro-B Natriuret Pep Triglycerides Cholesterol LDL Cholesterol Direct HDL Cholesterol Vancomycin Trough 36.3 H Miscellaneous Test 09/28/17 09/28/17 09/29/17 16:20 22:12 05:20 WBC RBC Hgb 11.4 L Hct 34.5 L MCH RDW Lymph % (Auto) 10.5 L [place] % (Auto) 9.1 H Eos % (Auto) Lymph # 0.5 L [place] # Seg Neutrophils % 75.8 H Seg Neutrophils # POC ABG pH POC ABG pCO2 POC ABG pO2 Sodium Chloride Carbon Dioxide BUN Creatinine Glucose POC Glucose 323 H 164 H Calcium Total Creatine Kinase Troponin T C-Reactive Protein NT-Pro-B Natriuret Pep Triglycerides Cholesterol LDL Cholesterol Direct HDL Cholesterol Vancomycin Trough Miscellaneous Test 09/29/17 09/29/17 09/29/17 05:20 07:53 16:21 WBC RBC Hgb Hct MCH RDW Lymph % (Auto) [place] % (Auto) Eos % (Auto) Lymph # [place] # Seg Neutrophils % Seg Neutrophils # POC ABG pH POC ABG pCO2 POC ABG pO2 Sodium 128 L Chloride 91.6 L Carbon Dioxide 21 L BUN 51 H Creatinine 3.8 H Glucose 161 H POC Glucose 128 H 141 H Calcium Total Creatine Kinase Troponin T C-Reactive Protein NT-Pro-B Natriuret Pep Triglycerides Cholesterol LDL Cholesterol Direct HDL Cholesterol Vancomycin Trough Miscellaneous Test 09/29/17 09/30/17 09/30/17 22:17 05:21 05:21 WBC RBC Hgb 10.3 L Hct 32.1 L MCH 27 L RDW Lymph % (Auto) 11.6 L [place] % (Auto) 9.3 H Eos % (Auto) 4.9 H Lymph # 0.8 L [place] # Seg Neutrophils % 73.6 H Seg Neutrophils # POC ABG pH POC ABG pCO2 POC ABG pO2 Sodium 127 L Chloride 90.9 L Carbon Dioxide BUN 52 H Creatinine 4.5 H Glucose 187 H POC Glucose 158 H Calcium 7.9 L Total Creatine Kinase Troponin T C-Reactive Protein NT-Pro-B Natriuret Pep Triglycerides Cholesterol LDL Cholesterol Direct HDL Cholesterol Vancomycin Trough Miscellaneous Test 09/30/17 09/30/17 09/30/17 07:47 11:55 21:44 WBC RBC Hgb Hct MCH RDW Lymph % (Auto) [place] % (Auto) Eos % (Auto) Lymph # [place] # Seg Neutrophils % Seg Neutrophils # POC ABG pH POC ABG pCO2 POC ABG pO2 Sodium Chloride Carbon Dioxide BUN Creatinine Glucose POC Glucose 137 H 184 H 141 H Calcium Total Creatine Kinase Troponin T C-Reactive Protein NT-Pro-B Natriuret Pep Triglycerides Cholesterol LDL Cholesterol Direct HDL Cholesterol Vancomycin Trough Miscellaneous Test 10/01/17 10/01/17 10/01/17 06:03 06:03 16:37 WBC RBC Hgb 11.3 L Hct 33.6 L MCH RDW Lymph % (Auto) 11.2 L [place] % (Auto) 10.2 H Eos % (Auto) Lymph # 1.1 L [place] # 1.0 H Seg Neutrophils % 74.5 H Seg Neutrophils # POC ABG pH POC ABG pCO2 POC ABG pO2 Sodium 130 L Chloride 92.3 L Carbon Dioxide BUN 53 H Creatinine 4.5 H Glucose POC Glucose 125 H Calcium 8.0 L Total Creatine Kinase Troponin T C-Reactive Protein NT-Pro-B Natriuret Pep Triglycerides Cholesterol LDL Cholesterol Direct HDL Cholesterol Vancomycin Trough Miscellaneous Test 10/01/17 10/01/17 10/02/17 20:41 21:47 06:21 WBC RBC Hgb 11.5 L Hct 34.5 L MCH RDW 15.3 H Lymph % (Auto) [place] % (Auto) 12.4 H Eos % (Auto) Lymph # 0.9 L [place] # Seg Neutrophils % 70.6 H Seg Neutrophils # POC ABG pH POC ABG pCO2 POC ABG pO2 Sodium Chloride Carbon Dioxide BUN Creatinine Glucose POC Glucose 115 H Calcium Total Creatine Kinase Troponin T C-Reactive Protein 7.60 H NT-Pro-B Natriuret Pep Triglycerides Cholesterol LDL Cholesterol Direct HDL Cholesterol Vancomycin Trough Miscellaneous Test 10/02/17 10/02/17 06:21 07:47 WBC RBC Hgb Hct MCH RDW Lymph % (Auto) [place] % (Auto) Eos % (Auto) Lymph # [place] # Seg Neutrophils % Seg Neutrophils # POC ABG pH POC ABG pCO2 POC ABG pO2 Sodium 133 L Chloride 92.7 L Carbon Dioxide BUN 51 H Creatinine 4.7 H Glucose 113 H POC Glucose 118 H Calcium 8.0 L Total Creatine Kinase Troponin T C-Reactive Protein NT-Pro-B Natriuret Pep Triglycerides Cholesterol LDL Cholesterol Direct HDL Cholesterol Vancomycin Trough Miscellaneous Test
[2017-10-02 18:59] LABS: Hepatitis A Antibody IgM Non-Reactive (NonReactive); Hepatitis B Core IgM Non-Reactive (NonReactive); Hepatitis B Surface Antigen Non-Reactive (Negative); Hepatitis C Virus Antibody Non-Reactive (NonReactive)
[2017-10-02] MEDS ORDERED: NACL 0.9 (PRIMING MACHINE ONLY DIALYSIS) MC ONE (19:40)
[2017-10-02] MEDS: HEPARIN IV PRN (20:08)
[2017-10-02] MEDS: LEVEMIR SUB-Q SCH (21:50)
[2017-10-02] MEDS: TYLENOL PO PRN (21:59)
[2017-10-03] MEDS: BIDIL 20/37.5MG PO SCH ×3 (05:19→21:37)
[2017-10-03 06:40] LABS: Hematocrit 31.9 % (35.5-45.6); Hemoglobin 10.7 gm/dl (11.8-15.2); Mean Corpuscular HGB Conc 34 % (32-34); Mean Corpuscular Hemoglobin 28 pg (28-32); Mean Corpuscular Volume 85 fl (84-94); Platelet Count 377 K/mm3 (140-440); Red Blood Count 3.76 M/mm3 (3.65-5.03); Red Cell Distribution Width 15.6 % (13.2-15.2)
[2017-10-03 06:56] LABS: Calcium 7.8 mg/dL (8.4-10.2)
[2017-10-03 07:48] LABS: Band Neutrophils # (Manual) 0.1 K/mm3; Total Cells Counted 100
[2017-10-03 07:50] LABS: Basophils % (Manual) 0 % (0.0-1.8)
[2017-10-03 07:52] LABS: Anisocytosis 1+
[2017-10-03] MEDS: NOVOLOG SUB-Q SCH ×4 (08:00→21:31)
--- NOTE | 2017-10-03 09:51 | Progress Note ---
Assessment and Plan (1) Acute renal failure (ARF) Current Visit: Yes Status: Acute Plan to address problem: HD again today for clearance and volume removal Avoid Nephrotoxic agents Renally dose medications Obtain daily weights Monitor intake and output- patient refused ye catheter placement Renal ultrasound reviewed-No Hydronephrosis or mass. Continue to monitor renal function closely (2) Bilateral pneumonia Current Visit: Yes Status: Acute Qualifiers: Pneumonia type: due to unspecified organism Lung location: unspecified part of lung Qualified Code(s): J18.9 - Pneumonia, unspecified organism Plan to address problem: Patient is on IV Levaquin and Zyvox (3) Systolic heart failure Current Visit: Yes Status: Acute Plan to address problem: Was on Milronone drip as per Cardiology (4) Diabetes mellitus type 2, insulin dependent Current Visit: No Status: Acute Plan to address problem: Insulin as per Primary team (5) Hyponatremia Current Visit: Yes Status: Acute Plan to address problem: Fluid restriction of 750 ml per No salt tablets due to CHF (6) Hypertension Current Visit: Yes Status: Acute Plan to address problem: Blood pressures are stable. Continue on Coreg. Subjective Date of service: 10/03/17 Principal diagnosis: Acute Hypoxemic Resp Failure; Bilateral Pulmonary Infiltrates; HFrEF Interval history: tolerated HD yesterday, breathing is better Objective - Vital Signs Vital signs: Vital Signs - 12hr 10/02/17 10/02/17 10/03/17 22:00 22:35 00:09 Temperature 98.5 F Pulse Rate 102 H 114 H Respiratory 18 22 Rate Blood Pressure 98/52 O2 Sat by Pulse 98 93 Oximetry 10/03/17 10/03/17 05:36 07:59 Temperature 97.6 F 98.8 F Pulse Rate 104 H 107 H Respiratory 22 20 Rate Blood Pressure 116/81 123/84 O2 Sat by Pulse 95 100 Oximetry - General Appearance General appearance: well-developed, well-nourished, appears stated age EENT: ATNC, PERRL, mucous membranes moist Neck: no JVD, no carotid bruit Respiratory: Present: Clear to Ascultation. Absent: Rales, Ronchi Cardiology: regular, S1S2 Gastrointestinal: normoactive bowel sounds, no tenderness, no distended, no obese Integumentary: no rash, warm and dry Neurologic: no focal deficit, no asterixis, alert and oriented x3 Musculoskeletal: other (trace pitting edema in BLE) Psychiatric: mood/affect appropriate, cooperative - Lab 10/03/17 06:13 10/03/17 06:13 Most recent lab results Calcium 7.8 mg/dL (8.4-10.2) L 10/03/17 06:13 Phosphorus 3.30 mg/dL (2.5-4.5) 09/30/17 05:21 Magnesium 1.70 mg/dL (1.7-2.3) 09/26/17 05:35
[2017-10-03] MEDS: COREG PO SCH ×2 (10:00→21:35)
[2017-10-03] MEDS: LOVENOX SUB-Q SCH (10:00)
[2017-10-03] MEDS: ZYVOX PO SCH ×2 (10:37→21:34)
[2017-10-03] MEDS: BABY ASPIRIN PO SCH (10:37)
[2017-10-03] MEDS: PROTONIX PO SCH (10:37)
--- NOTE | 2017-10-03 11:19 | Progress Note ---
Assessment and Plan Assessment and plan: Acute hypoxic respiratory failure -BIPAP as clinically indicated -Etiology secondary to bilateral pneumonia Acute Renal failure -Patient with Vas-Cath placed yesterday and hemodialysis initiated. HD again today for clearance and volume removal -Assess need for HD on daily basis -Avoid Nephrotoxic agents -Renally dose medications -Obtain daily weights -Monitor intake and output -Monitor renal function closely -Renal ultrasound showed no hydronephrosis -Nephrology following Sepsis -Etiology secondary to pneumonia. -follow up Legionella urine antigen, Streptococcus pneumoniae urine antigen -Blood cultures thus far negative. -continue abx per ID Bilateral pneumonia - On IV antibiotics as above - Pulmonary consult appreciated Cardiomyopathy - EF of 10-15%, systolic dysfunction - continue with CHF medications -Patient previously on milrinone drip per cardiology - Cardiology following - Lexiscan stress test to be done once stable. Acute on chronic systolic heart failure. -Continue aggressive medical therapy with IV milrinone and IV diuresis. Hyponatremia -Fluid restriction of 750ml per day -Follow BMP DM with hyperglycemia - SSI and basal insulin DVT prophylaxis - On lovenox - patient is not stable enough to transfer to [facility]. History Interval history: No new issues overnight. Hospitalist Physical - Constitutional Vitals: Temp Pulse Resp BP Pulse Ox 98.8 F 107 H 20 123/84 100 10/03/17 07:59 10/03/17 07:59 10/03/17 07:59 10/03/17 07:59 10/03/17 07:59 General appearance: Present: no acute distress - EENT Eyes: Present: PERRL, EOM intact ENT: hearing intact, clear oral mucosa, dentition normal - Neck Neck: Present: supple, normal ROM - Respiratory Respiratory effort: normal Respiratory: bilateral: CTA - Cardiovascular Rhythm: regular Heart Sounds: Present: S1 & S2. Absent: gallop, rub - Extremities Extremities: no ischemia, No edema, Full ROM - Abdominal General gastrointestinal: soft, non-tender, non-distended, normal bowel sounds - Integumentary Integumentary: Present: clear, warm, dry - Neurologic Neurologic: CNII-XII intact, moves all extremities Results - Labs CBC & Chem 7: 10/03/17 06:13 10/03/17 06:13 Labs: Laboratory Last Values WBC 5.6 K/mm3 (4.5-11.0) 10/03/17 06:13 RBC 3.76 M/mm3 (3.65-5.03) 10/03/17 06:13 Hgb 10.7 gm/dl (11.8-15.2) L 10/03/17 06:13 Hct 31.9 % (35.5-45.6) L 10/03/17 06:13 MCV 85 fl (84-94) 10/03/17 06:13 MCH 28 pg (28-32) 10/03/17 06:13 MCHC 34 % (32-34) 10/03/17 06:13 RDW 15.6 % (13.2-15.2) H 10/03/17 06:13 Plt Count 377 K/mm3 (140-440) 10/03/17 06:13 Lymph % (Auto) 13.7 % (13.4-35.0) 10/02/17 06:21 Hayes % (Auto) Account Support Associate 10/03/17 06:13 Eos % (Auto) 2.8 % (0.0-4.3) 10/02/17 06:21 Baso % (Auto) 0.5 % (0.0-1.8) 10/02/17 06:21 Lymph # 0.9 K/mm3 (1.2-5.4) L 10/02/17 06:21 Hayes # 0.8 K/mm3 (0.0-0.8) 10/02/17 06:21 Eos # 0.2 K/mm3 (0.0-0.4) 10/02/17 06:21 Baso # 0.0 K/mm3 (0.0-0.1) 10/02/17 06:21 Add Manual Diff Complete 10/03/17 06:13 Total Counted 100 10/03/17 06:13 Seg Neutrophils % 70.6 % (40.0-70.0) H 10/02/17 06:21 Seg Neuts % (Manual) 62.0 % (40.0-70.0) 10/03/17 06:13 Band Neutrophils % 2.0 % 10/03/17 06:13 Lymphocytes % (Manual) 27.0 % (13.4-35.0) 10/03/17 06:13 Reactive Lymphs % (Man) 0 % 10/03/17 06:13 Monocytes % (Manual) 7.0 % (0.0-7.3) 10/03/17 06:13 Eosinophils % (Manual) 2.0 % (0.0-4.3) 10/03/17 06:13 Basophils % (Manual) 0 % (0.0-1.8) 10/03/17 06:13 Metamyelocytes % 0 % 10/03/17 06:13 Myelocytes % 0 % 10/03/17 06:13 Promyelocytes % 0 % 10/03/17 06:13 Blast Cells % 0 % 10/03/17 06:13 Nucleated RBC % Not Reportable 10/03/17 06:13 Seg Neutrophils # 4.6 K/mm3 (1.8-7.7) 10/02/17 06:21 Seg Neutrophils # Man 3.5 K/mm3 (1.8-7.7) 10/03/17 06:13 Band Neutrophils # 0.1 K/mm3 10/03/17 06:13 Lymphocytes # (Manual) 1.5 K/mm3 (1.2-5.4) 10/03/17 06:13 Abs React Lymphs (Man) 0.0 K/mm3 10/03/17 06:13 Monocytes # (Manual) 0.4 K/mm3 (0.0-0.8) 10/03/17 06:13 Eosinophils # (Manual) 0.1 K/mm3 (0.0-0.4) 10/03/17 06:13 Basophils # (Manual) 0.0 K/mm3 (0.0-0.1) 10/03/17 06:13 Metamyelocytes # 0.0 K/mm3 10/03/17 06:13 Myelocytes # 0.0 K/mm3 10/03/17 06:13 Promyelocytes # 0.0 K/mm3 10/03/17 06:13 Blast Cells # 0.0 K/mm3 10/03/17 06:13 WBC Morphology Not Reportable 10/03/17 06:13 Hypersegmented Neuts Not Reportable 10/03/17 06:13 Hyposegmented Neuts Not Reportable 10/03/17 06:13 Hypogranular Neuts Not Reportable 10/03/17 06:13 Smudge Cells Not Reportable 10/03/17 06:13 Toxic Granulation Not Reportable 10/03/17 06:13 Toxic Vacuolation Not Reportable 10/03/17 06:13 Dohle Bodies Not Reportable 10/03/17 06:13 Pelger-Huet Anomaly Not Reportable 10/03/17 06:13 Diaz Rods Not Reportable 10/03/17 06:13 Platelet Estimate Appears normal 10/03/17 06:13 Clumped Platelets Not Reportable 10/03/17 06:13 Plt Clumps, EDTA Not Reportable 10/03/17 06:13 Large Platelets Not Reportable 10/03/17 06:13 Giant Platelets Not Reportable 10/03/17 06:13 Platelet Satelliting Not Reportable 10/03/17 06:13 Plt Morphology Comment Not Reportable 10/03/17 06:13 RBC Morphology Not Reportable 10/03/17 06:13 Dimorphic RBCs Not Reportable 10/03/17 06:13 Polychromasia Not Reportable 10/03/17 06:13 Hypochromasia Not Reportable 10/03/17 06:13 Poikilocytosis Not Reportable 10/03/17 06:13 Anisocytosis 1+ 10/03/17 06:13 Microcytosis Not Reportable 10/03/17 06:13 Macrocytosis Not Reportable 10/03/17 06:13 Spherocytes Not Reportable 10/03/17 06:13 Pappenheimer Bodies Not Reportable 10/03/17 06:13 Sickle Cells Not Reportable 10/03/17 06:13 Target Cells Not Reportable 10/03/17 06:13 Tear Drop Cells Not Reportable 10/03/17 06:13 Ovalocytes Not Reportable 10/03/17 06:13 Helmet Cells Not Reportable 10/03/17 06:13 [place] Bodies Not Reportable 10/03/17 06:13 [place] Rings Not Reportable 10/03/17 06:13 [place] Cells Not Reportable 10/03/17 06:13 Bite Cells Not Reportable 10/03/17 06:13 Crenated Cell Not Reportable 10/03/17 06:13 Elliptocytes Not Reportable 10/03/17 06:13 Acanthocytes (Spur) Not Reportable 10/03/17 06:13 Rouleaux Not Reportable 10/03/17 06:13 Hemoglobin C Crystals Not Reportable 10/03/17 06:13 Schistocytes Not Reportable 10/03/17 06:13 Malaria parasites Not Reportable 10/03/17 06:13 Dash Bodies Not Reportable 10/03/17 06:13 Hem Pathologist Commnt No 10/03/17 06:13 POC ABG pH 7.459 (7.35-7.45) H 09/23/17 15:04 POC ABG pCO2 34.8 (35-45) L 09/23/17 15:04 POC ABG pO2 54 (80-105) L 09/23/17 15:04 POC ABG HCO3 24.7 09/23/17 15:04 POC ABG Total CO2 26 09/23/17 15:04 POC ABG O2 Sat 89 09/23/17 15:04 POC ABG Base Excess 1 09/23/17 15:04 FiO2 21 % 09/23/17 15:04 Sodium 134 mmol/L (137-145) L 10/03/17 06:13 Potassium 4.6 mmol/L (3.6-5.0) 10/03/17 06:13 Chloride 95.3 mmol/L (98-107) L 10/03/17 06:13 Carbon Dioxide 25 mmol/L (22-30) 10/03/17 06:13 Anion Gap 18 mmol/L 10/03/17 06:13 BUN 32 mg/dL (9-20) H 10/03/17 06:13 Creatinine 3.7 mg/dL (0.8-1.5) H 10/03/17 06:13 Estimated GFR 22 ml/min 10/03/17 06:13 BUN/Creatinine Ratio 9 % 10/03/17 06:13 Glucose 89 mg/dL (75-100) 10/03/17 06:13 POC Glucose 93 (70-105) 10/03/17 08:07 Osmolality 299 Mosm/kg 09/30/17 05:21 Calcium 7.8 mg/dL (8.4-10.2) L 10/03/17 06:13 Phosphorus 3.30 mg/dL (2.5-4.5) 09/30/17 05:21 Magnesium 1.70 mg/dL (1.7-2.3) 09/26/17 05:35 Total Creatine Kinase 170 units/L (55-170) 09/23/17 04:10 CK-MB (CK-2) 1.4 ng/mL (0.0-4.0) 09/23/17 04:10 CK-MB (CK-2) Rel Index 0.8 (0-4) 09/23/17 04:10 Troponin T 0.287 ng/mL (0.00-0.029) H* 09/23/17 04:10 C-Reactive Protein 7.60 mg/dL (0.00-1.30) H 10/01/17 20:41 NT-Pro-B Natriuret Pep 5093 pg/mL (0-450) H 09/22/17 21:31 Triglycerides 226 mg/dL (2-149) H 09/22/17 21:31 Cholesterol 235 mg/dL (50-199) H 09/22/17 21:31 LDL Cholesterol Direct 164 mg/dL (50-130) H 09/22/17 21:31 HDL Cholesterol 26 mg/dL (40-59) L 09/22/17 21:31 Cholesterol/HDL Ratio 9.03 % 09/22/17 21:31 Urine Eosinophils None seen (None Seen) 09/29/17 Unknown Vancomycin Trough 36.3 ug/mL (5.0-20.0) H 09/28/17 07:00 Hepatitis A IgM Ab Non-reactive (NonReactive) 10/02/17 17:35 Hep Bs Antigen Non-reactive (Negative) 10/02/17 17:35 Hep B Core IgM Ab Non-reactive (NonReactive) 10/02/17 17:35 Hepatitis C Antibody Non-reactive (NonReactive) 10/02/17 17:35 HIV-1 RNA PCR copies/ml TNR 09/27/17 21:18 HIV-1 RNA (PCR) log TNR 09/27/17 21:18 HIV 1&2 Antibody Rapid Non react (Non React) 09/27/17 21:18 HIV P24 Antigen Non react (Non React) 09/27/17 21:18 Miscellaneous Test Flexitest 1 H 09/27/17 21:19
[2017-10-03] MEDS ORDERED: NACL 0.9 (PRIMING MACHINE ONLY DIALYSIS) MC ONE (13:20)
[2017-10-03] MEDS: HEPARIN IV PRN (16:11)
[2017-10-03] MEDS: LEVEMIR SUB-Q SCH (21:35)
--- NOTE | 2017-10-03 22:36 | Progress Note ---
Assessment and Plan Acute hypoxemic respiratory failure Bilateral infiltrates, pneumonia Sepsis Hyponatremia Diabetes, poorly controlled Morbid obesity Systolic heart failure, EF 15% Tobacco abuse disorder Acute Renal failure -Patient with Vas-Cath placed yesterday and hemodialysis initiated. HD again today for clearance and volume removal -Assess need for HD on daily basis -Avoid Nephrotoxic agents -Renally dose medications -Obtain daily weights -Monitor intake and output -Monitor renal function closely -Renal ultrasound showed no hydronephrosis -Nephrology following -Supplemental oxygen to keep O2 sats>90% -NIPPV prn -Supplemental oxygen to keep O2 sats>90% -Antibiotics per ID -- risks outweigh likely benefits from bronchoscopy at this time, optimize then plan for out patient bronchoscopy -Heart failure measures, fluid restriction, cardioprotective measures -Milrirone per cardiology -VTE prophylaxis -ABG prn - Smoking cessation counselling done again -Nicotine withdrawal precautions -Outpatient sleep study Subjective Date of service: 10/03/17 Principal diagnosis: Acute Hypoxemic Resp Failure; Bilateral Pulmonary Infiltrates; HFrEF Interval history: Patient is seen today for: Acute Hypoxemic Resp Failure; Bilateral Pulmonary Infiltrates; HFrEF Seen and examined at bedside; 24hour events reviewed; nursing and respiratory care staff consulted; no adverse overnight events reported to me; resting in bed ; feels better; on 2L NC; denies acute chest pains; + cough no hemoptysis; No N/ V/F/C Hemodialysis catheter was placed and HD initiated. Objective - Exam Narrative Exam: General appearance: Alert in NAD, conversant Eyes: anicteric sclerae, moist conjunctivae; no lid-lag; PERRLA HENT: Atraumatic; oropharynx clear with moist mucous membranes and no mucosal ulcerations/no oral thrush; normal hard and soft palate. Normal external ears. Neck: Trachea midline; supple, no thyromegaly or lymphadenopathy Lungs: diminished in bilateral lung bases, CV: RRR, no murmurs Abdomen: Soft, non-tender; +BS x 4 Extremities: No peripheral edema or extremity lymphadenopathy Skin: Normal temperature, turgor and texture; no rash, ulcers or subcutaneous nodules Psych: Appropriate affect, cooperative Neuro: alert and oriented x 3. Moving all extermities Vital Signs - 12hr 10/03/17 10/03/17 10/03/17 11:10 11:15 11:30 Temperature 98.2 F Pulse Rate 109 H 109 H 111 H Respiratory 22 Rate Blood Pressure 141/95 143/93 141/95 Blood Pressure [Left] O2 Sat by Pulse Oximetry 10/03/17 10/03/17 10/03/17 11:45 12:00 12:15 Temperature Pulse Rate 110 H 104 H 104 H Respiratory Rate Blood Pressure 125/79 130/82 123/80 Blood Pressure [Left] O2 Sat by Pulse Oximetry 10/03/17 10/03/17 10/03/17 12:30 12:45 13:00 Temperature Pulse Rate 102 H 102 H 109 H Respiratory Rate Blood Pressure 121/83 128/84 146/102 Blood Pressure [Left] O2 Sat by Pulse Oximetry 10/03/17 10/03/17 10/03/17 13:15 13:30 13:45 Temperature Pulse Rate 105 H 101 H 100 H Respiratory Rate Blood Pressure 148/98 130/86 133/87 Blood Pressure [Left] O2 Sat by Pulse Oximetry 10/03/17 10/03/17 10/03/17 14:00 14:05 16:42 Temperature 98.6 F Pulse Rate 103 H 103 H 118 H Respiratory 18 Rate Blood Pressure 123/87 135/92 Blood Pressure [Left] O2 Sat by Pulse 100 Oximetry 10/03/17 10/03/17 17:29 19:25 Temperature 98.3 F 99.3 F Pulse Rate 118 H 123 H Respiratory 20 Rate Blood Pressure 133/97 Blood Pressure 138/103 [Left] O2 Sat by Pulse 93 Oximetry Constitutional: no acute distress, alert Eyes: non-icteric ENT: oropharynx moist, other (No thyromegaly) Neck: supple, no lymphadenopathy, no JVD Effort: mildly labored Ascultation: Bilateral: diminished breath sounds, rales (bases) Percussion: Bilateral: not dull Cardiovascular: regular rate and rhythm, murmur noted, other (no rubs) Gastrointestinal: normoactive bowel sounds, soft, non-tender, non-distended, other (no palpable HSM) Integumentary: normal Extremities: no cyanosis, pulses normal, no ischemia or petechiae, edema Neurologic: normal mental status, non-focal exam, pupils equal and round, CN II- XII normal Psychiatric: mood appropriate, affect normal CBC and BMP: 10/03/17 06:13 10/03/17 06:13 ABG, PT/INR, D-dimer: ABG POC ABG pH 7.459 (7.35-7.45) H 09/23/17 15:04 POC ABG pCO2 34.8 (35-45) L 09/23/17 15:04 POC ABG pO2 54 (80-105) L 09/23/17 15:04 POC ABG HCO3 24.7 09/23/17 15:04 POC ABG Total CO2 26 09/23/17 15:04 POC ABG O2 Sat 89 09/23/17 15:04 Abnormal lab findings: Abnormal Labs 09/22/17 09/22/17 09/22/17 21:30 21:31 21:31 WBC RBC Hgb Hct MCH RDW 15.3 H Lymph % (Auto) [place] % (Auto) 9.6 H Eos % (Auto) Lymph # [place] # 0.9 H Seg Neutrophils % 72.0 H Seg Neutrophils # POC ABG pH POC ABG pCO2 POC ABG pO2 Sodium Chloride Carbon Dioxide BUN Creatinine Glucose POC Glucose Calcium Total Creatine Kinase 371 H Troponin T 0.260 H* C-Reactive Protein NT-Pro-B Natriuret Pep 5093 H Triglycerides 226 H Cholesterol 235 H LDL Cholesterol Direct 164 H HDL Cholesterol 26 L Vancomycin Trough Miscellaneous Test 09/22/17 09/22/17 09/23/17 22:54 22:54 04:00 WBC RBC Hgb Hct MCH RDW Lymph % (Auto) [place] % (Auto) 11.9 H Eos % (Auto) Lymph # [place] # Seg Neutrophils % Seg Neutrophils # POC ABG pH POC ABG pCO2 POC ABG pO2 Sodium 129 L Chloride 91.6 L Carbon Dioxide BUN Creatinine 0.7 L Glucose 256 H POC Glucose Calcium 7.9 L Total Creatine Kinase 211 H Troponin T 0.344 H* D C-Reactive Protein NT-Pro-B Natriuret Pep Triglycerides Cholesterol LDL Cholesterol Direct HDL Cholesterol Vancomycin Trough Miscellaneous Test 09/23/17 09/23/17 09/23/17 04:00 04:10 09:09 WBC RBC Hgb Hct MCH RDW Lymph % (Auto) [place] % (Auto) Eos % (Auto) Lymph # [place] # Seg Neutrophils % Seg Neutrophils # POC ABG pH POC ABG pCO2 POC ABG pO2 Sodium 136 L D Chloride 95.3 L Carbon Dioxide BUN Creatinine Glucose 181 H POC Glucose 166 H Calcium 7.7 L Total Creatine Kinase Troponin T 0.287 H* C-Reactive Protein NT-Pro-B Natriuret Pep Triglycerides Cholesterol LDL Cholesterol Direct HDL Cholesterol Vancomycin Trough Miscellaneous Test 09/23/17 09/23/17 09/23/17 11:40 13:19 15:04 WBC RBC Hgb Hct MCH RDW Lymph % (Auto) [place] % (Auto) Eos % (Auto) Lymph # [place] # Seg Neutrophils % Seg Neutrophils # POC ABG pH 7.459 H POC ABG pCO2 34.8 L POC ABG pO2 54 L Sodium Chloride Carbon Dioxide BUN Creatinine Glucose POC Glucose 221 H 267 H Calcium Total Creatine Kinase Troponin T C-Reactive Protein NT-Pro-B Natriuret Pep Triglycerides Cholesterol LDL Cholesterol Direct HDL Cholesterol Vancomycin Trough Miscellaneous Test 09/23/17 09/23/17 09/24/17 15:57 22:07 04:40 WBC RBC Hgb Hct MCH RDW Lymph % (Auto) [place] % (Auto) 11.4 H Eos % (Auto) Lymph # [place] # Seg Neutrophils % Seg Neutrophils # POC ABG pH POC ABG pCO2 POC ABG pO2 Sodium Chloride Carbon Dioxide BUN Creatinine Glucose POC Glucose 281 H 166 H Calcium Total Creatine Kinase Troponin T C-Reactive Protein NT-Pro-B Natriuret Pep Triglycerides Cholesterol LDL Cholesterol Direct HDL Cholesterol Vancomycin Trough Miscellaneous Test 09/24/17 09/24/17 09/24/17 04:40 08:42 12:17 WBC RBC Hgb Hct MCH RDW Lymph % (Auto) [place] % (Auto) Eos % (Auto) Lymph # [place] # Seg Neutrophils % Seg Neutrophils # POC ABG pH POC ABG pCO2 POC ABG pO2 Sodium 133 L Chloride 95.6 L Carbon Dioxide BUN Creatinine 0.7 L Glucose 251 H POC Glucose 173 H 209 H Calcium 7.8 L Total Creatine Kinase Troponin T C-Reactive Protein NT-Pro-B Natriuret Pep Triglycerides Cholesterol LDL Cholesterol Direct HDL Cholesterol Vancomycin Trough Miscellaneous Test 09/24/17 09/24/17 09/25/17 16:13 21:21 12:44 WBC RBC Hgb Hct MCH RDW Lymph % (Auto) [place] % (Auto) Eos % (Auto) Lymph # [place] # Seg Neutrophils % Seg Neutrophils # POC ABG pH POC ABG pCO2 POC ABG pO2 Sodium Chloride Carbon Dioxide BUN Creatinine Glucose POC Glucose 248 H 152 H 185 H Calcium Total Creatine Kinase Troponin T C-Reactive Protein NT-Pro-B Natriuret Pep Triglycerides Cholesterol LDL Cholesterol Direct HDL Cholesterol Vancomycin Trough Miscellaneous Test 09/25/17 09/25/17 09/26/17 17:18 23:10 05:35 WBC 15.6 H RBC Hgb Hct MCH RDW Lymph % (Auto) [place] % (Auto) Eos % (Auto) Lymph # [place] # Seg Neutrophils % 78.5 H Seg Neutrophils # 12.2 H POC ABG pH POC ABG pCO2 POC ABG pO2 Sodium Chloride Carbon Dioxide BUN Creatinine Glucose POC Glucose 186 H 187 H Calcium Total Creatine Kinase Troponin T C-Reactive Protein NT-Pro-B Natriuret Pep Triglycerides Cholesterol LDL Cholesterol Direct HDL Cholesterol Vancomycin Trough Miscellaneous Test 09/26/17 09/26/17 09/26/17 05:35 09:02 12:20 WBC RBC Hgb Hct MCH RDW Lymph % (Auto) [place] % (Auto) Eos % (Auto) Lymph # [place] # Seg Neutrophils % Seg Neutrophils # POC ABG pH POC ABG pCO2 POC ABG pO2 Sodium 133 L Chloride 95.2 L Carbon Dioxide BUN Creatinine 0.7 L Glucose 161 H POC Glucose 131 H 199 H Calcium 8.3 L Total Creatine Kinase Troponin T C-Reactive Protein NT-Pro-B Natriuret Pep Triglycerides Cholesterol LDL Cholesterol Direct HDL Cholesterol Vancomycin Trough Miscellaneous Test 09/26/17 09/26/17 09/27/17 16:39 21:45 07:24 WBC RBC Hgb Hct MCH RDW Lymph % (Auto) [place] % (Auto) Eos % (Auto) Lymph # [place] # Seg Neutrophils % Seg Neutrophils # POC ABG pH POC ABG pCO2 POC ABG pO2 Sodium Chloride Carbon Dioxide BUN Creatinine Glucose POC Glucose 209 H 194 H 210 H Calcium Total Creatine Kinase Troponin T C-Reactive Protein NT-Pro-B Natriuret Pep Triglycerides Cholesterol LDL Cholesterol Direct HDL Cholesterol Vancomycin Trough Miscellaneous Test 09/27/17 09/27/17 09/27/17 09:20 09:20 11:50 WBC RBC Hgb 11.0 L Hct MCH RDW Lymph % (Auto) [place] % (Auto) Eos % (Auto) Lymph # [place] # Seg Neutrophils % 77.2 H Seg Neutrophils # POC ABG pH POC ABG pCO2 POC ABG pO2 Sodium 134 L Chloride 96.1 L Carbon Dioxide BUN 21 H Creatinine Glucose 139 H POC Glucose Calcium 8.0 L Total Creatine Kinase Troponin T C-Reactive Protein NT-Pro-B Natriuret Pep Triglycerides Cholesterol LDL Cholesterol Direct HDL Cholesterol Vancomycin Trough 46.8 H Miscellaneous Test 09/27/17 09/27/17 09/27/17 11:50 12:18 17:00 WBC RBC Hgb 10.7 L Hct 32.1 L D MCH RDW Lymph % (Auto) [place] % (Auto) Eos % (Auto) Lymph # [place] # Seg Neutrophils % 80.6 H Seg Neutrophils # POC ABG pH POC ABG pCO2 POC ABG pO2 Sodium Chloride Carbon Dioxide BUN Creatinine Glucose POC Glucose 274 H 169 H Calcium Total Creatine Kinase Troponin T C-Reactive Protein NT-Pro-B Natriuret Pep Triglycerides Cholesterol LDL Cholesterol Direct HDL Cholesterol Vancomycin Trough Miscellaneous Test 09/27/17 09/27/17 09/27/17 21:18 21:19 23:28 WBC RBC Hgb Hct MCH RDW Lymph % (Auto) [place] % (Auto) Eos % (Auto) Lymph # [place] # Seg Neutrophils % Seg Neutrophils # POC ABG pH POC ABG pCO2 POC ABG pO2 Sodium Chloride Carbon Dioxide BUN Creatinine Glucose POC Glucose 251 H Calcium Total Creatine Kinase Troponin T C-Reactive Protein 34.90 H NT-Pro-B Natriuret Pep Triglycerides Cholesterol LDL Cholesterol Direct HDL Cholesterol Vancomycin Trough Miscellaneous Test Flexitest 1 H 09/27/17 09/28/17 09/28/17 23:49 07:00 07:00 WBC RBC 3.44 L Hgb 9.9 L Hct 29.6 L MCH RDW Lymph % (Auto) [place] % (Auto) Eos % (Auto) Lymph # 1.0 L [place] # Seg Neutrophils % 76.2 H Seg Neutrophils # POC ABG pH POC ABG pCO2 POC ABG pO2 Sodium 128 L Chloride 92.1 L Carbon Dioxide 20 L BUN 40 H Creatinine 3.1 H D Glucose 199 H POC Glucose 233 H Calcium 7.5 L Total Creatine Kinase Troponin T C-Reactive Protein NT-Pro-B Natriuret Pep Triglycerides Cholesterol LDL Cholesterol Direct HDL Cholesterol Vancomycin Trough Miscellaneous Test 09/28/17 09/28/17 09/28/17 07:00 08:03 13:31 WBC RBC Hgb Hct MCH RDW Lymph % (Auto) [place] % (Auto) Eos % (Auto) Lymph # [place] # Seg Neutrophils % Seg Neutrophils # POC ABG pH POC ABG pCO2 POC ABG pO2 Sodium Chloride Carbon Dioxide BUN Creatinine Glucose POC Glucose 165 H 237 H Calcium Total Creatine Kinase Troponin T C-Reactive Protein NT-Pro-B Natriuret Pep Triglycerides Cholesterol LDL Cholesterol Direct HDL Cholesterol Vancomycin Trough 36.3 H Miscellaneous Test 09/28/17 09/28/17 09/29/17 16:20 22:12 05:20 WBC RBC Hgb 11.4 L Hct 34.5 L MCH RDW Lymph % (Auto) 10.5 L [place] % (Auto) 9.1 H Eos % (Auto) Lymph # 0.5 L [place] # Seg Neutrophils % 75.8 H Seg Neutrophils # POC ABG pH POC ABG pCO2 POC ABG pO2 Sodium Chloride Carbon Dioxide BUN Creatinine Glucose POC Glucose 323 H 164 H Calcium Total Creatine Kinase Troponin T C-Reactive Protein NT-Pro-B Natriuret Pep Triglycerides Cholesterol LDL Cholesterol Direct HDL Cholesterol Vancomycin Trough Miscellaneous Test 09/29/17 09/29/17 09/29/17 05:20 07:53 16:21 WBC RBC Hgb Hct MCH RDW Lymph % (Auto) [place] % (Auto) Eos % (Auto) Lymph # [place] # Seg Neutrophils % Seg Neutrophils # POC ABG pH POC ABG pCO2 POC ABG pO2 Sodium 128 L Chloride 91.6 L Carbon Dioxide 21 L BUN 51 H Creatinine 3.8 H Glucose 161 H POC Glucose 128 H 141 H Calcium Total Creatine Kinase Troponin T C-Reactive Protein NT-Pro-B Natriuret Pep Triglycerides Cholesterol LDL Cholesterol Direct HDL Cholesterol Vancomycin Trough Miscellaneous Test 09/29/17 09/30/17 09/30/17 22:17 05:21 05:21 WBC RBC Hgb 10.3 L Hct 32.1 L MCH 27 L RDW Lymph % (Auto) 11.6 L [place] % (Auto) 9.3 H Eos % (Auto) 4.9 H Lymph # 0.8 L [place] # Seg Neutrophils % 73.6 H Seg Neutrophils # POC ABG pH POC ABG pCO2 POC ABG pO2 Sodium 127 L Chloride 90.9 L Carbon Dioxide BUN 52 H Creatinine 4.5 H Glucose 187 H POC Glucose 158 H Calcium 7.9 L Total Creatine Kinase Troponin T C-Reactive Protein NT-Pro-B Natriuret Pep Triglycerides Cholesterol LDL Cholesterol Direct HDL Cholesterol Vancomycin Trough Miscellaneous Test 09/30/17 09/30/17 09/30/17 07:47 11:55 21:44 WBC RBC Hgb Hct MCH RDW Lymph % (Auto) [place] % (Auto) Eos % (Auto) Lymph # [place] # Seg Neutrophils % Seg Neutrophils # POC ABG pH POC ABG pCO2 POC ABG pO2 Sodium Chloride Carbon Dioxide BUN Creatinine Glucose POC Glucose 137 H 184 H 141 H Calcium Total Creatine Kinase Troponin T C-Reactive Protein NT-Pro-B Natriuret Pep Triglycerides Cholesterol LDL Cholesterol Direct HDL Cholesterol Vancomycin Trough Miscellaneous Test 10/01/17 10/01/17 10/01/17 06:03 06:03 16:37 WBC RBC Hgb 11.3 L Hct 33.6 L MCH RDW Lymph % (Auto) 11.2 L [place] % (Auto) 10.2 H Eos % (Auto) Lymph # 1.1 L [place] # 1.0 H Seg Neutrophils % 74.5 H Seg Neutrophils # POC ABG pH POC ABG pCO2 POC ABG pO2 Sodium 130 L Chloride 92.3 L Carbon Dioxide BUN 53 H Creatinine 4.5 H Glucose POC Glucose 125 H Calcium 8.0 L Total Creatine Kinase Troponin T C-Reactive Protein NT-Pro-B Natriuret Pep Triglycerides Cholesterol LDL Cholesterol Direct HDL Cholesterol Vancomycin Trough Miscellaneous Test 10/01/17 10/01/17 10/02/17 20:41 21:47 06:21 WBC RBC Hgb 11.5 L Hct 34.5 L MCH RDW 15.3 H Lymph % (Auto) [place] % (Auto) 12.4 H Eos % (Auto) Lymph # 0.9 L [place] # Seg Neutrophils % 70.6 H Seg Neutrophils # POC ABG pH POC ABG pCO2 POC ABG pO2 Sodium Chloride Carbon Dioxide BUN Creatinine Glucose POC Glucose 115 H Calcium Total Creatine Kinase Troponin T C-Reactive Protein 7.60 H NT-Pro-B Natriuret Pep Triglycerides Cholesterol LDL Cholesterol Direct HDL Cholesterol Vancomycin Trough Miscellaneous Test 10/02/17 10/02/17 10/02/17 06:21 07:47 21:56 WBC RBC Hgb Hct MCH RDW Lymph % (Auto) [place] % (Auto) Eos % (Auto) Lymph # [place] # Seg Neutrophils % Seg Neutrophils # POC ABG pH POC ABG pCO2 POC ABG pO2 Sodium 133 L Chloride 92.7 L Carbon Dioxide BUN 51 H Creatinine 4.7 H Glucose 113 H POC Glucose 118 H 154 H Calcium 8.0 L Total Creatine Kinase Troponin T C-Reactive Protein NT-Pro-B Natriuret Pep Triglycerides Cholesterol LDL Cholesterol Direct HDL Cholesterol Vancomycin Trough Miscellaneous Test 10/03/17 10/03/17 10/03/17 06:13 06:13 16:50 WBC RBC Hgb 10.7 L Hct 31.9 L MCH RDW 15.6 H Lymph % (Auto) [place] % (Auto) Eos % (Auto) Lymph # [place] # Seg Neutrophils % Seg Neutrophils # POC ABG pH POC ABG pCO2 POC ABG pO2 Sodium 134 L Chloride 95.3 L Carbon Dioxide BUN 32 H Creatinine 3.7 H Glucose POC Glucose 126 H Calcium 7.8 L Total Creatine Kinase Troponin T C-Reactive Protein NT-Pro-B Natriuret Pep Triglycerides Cholesterol LDL Cholesterol Direct HDL Cholesterol Vancomycin Trough Miscellaneous Test
--- NOTE | 2017-10-03 22:43 | Progress Note ---
Assessment and Plan - Patient Problems (1) Acute congestive heart failure Current Visit: Yes Status: Acute Qualifiers: Congestive heart failure type: unspecified Qualified Code(s): I50.9 - Heart failure, unspecified Subjective Date of service: 10/03/17 Principal diagnosis: Acute Hypoxemic Resp Failure; Bilateral Pulmonary Infiltrates; HFrEF Interval history: IMPROVED Objective Vital Signs Temp Pulse Resp BP BP Pulse Ox 10/03/17 19:25 99.3 F 123 H 20 133/97 93 10/03/17 17:29 98.3 F 118 H 138/103 10/03/17 16:42 118 H 100 10/03/17 14:05 98.6 F 103 H 18 135/92 10/03/17 14:00 103 H 123/87 10/03/17 13:45 100 H 133/87 10/03/17 13:30 101 H 130/86 10/03/17 13:15 105 H 148/98 10/03/17 13:00 109 H 146/102 10/03/17 12:45 102 H 128/84 10/03/17 12:30 102 H 121/83 10/03/17 12:15 104 H 123/80 10/03/17 12:00 104 H 130/82 10/03/17 11:45 110 H 125/79 10/03/17 11:30 111 H 141/95 10/03/17 11:15 109 H 143/93 10/03/17 11:10 98.2 F 109 H 22 141/95 10/03/17 10:00 107 H 123/84 97 10/03/17 07:59 98.8 F 107 H 20 123/84 100 10/03/17 05:36 97.6 F 104 H 22 116/81 95 10/03/17 00:09 98.5 F 114 H 22 98/52 93 - Physical Examination General: No Apparent Distress HEENT: Positive: PERRL Neck: Positive: neck supple, trachea midline Cardiac: Positive: Reg Rate and Rhythm Lungs: Positive: Decreased Breath Sounds Neuro: Positive: Grossly Intact Abdomen: Positive: Soft Skin: Positive: Clear Extremities: Absent: edema - Labs and Meds CBC 10/03/17 Range/Units 06:13 WBC 5.6 (4.5-11.0) K/mm3 RBC 3.76 (3.65-5.03) M/mm3 Hgb 10.7 L (11.8-15.2) gm/dl Hct 31.9 L (35.5-45.6) % Plt Count 377 (140-440) K/mm3 Comprehensive Metabolic Panel 10/03/17 Range/Units 06:13 Sodium 134 L (137-145) mmol/L Potassium 4.6 (3.6-5.0) mmol/L Chloride 95.3 L (98-107) mmol/L Carbon Dioxide 25 (22-30) mmol/L BUN 32 H (9-20) mg/dL Creatinine 3.7 H (0.8-1.5) mg/dL Glucose 89 (75-100) mg/dL Calcium 7.8 L (8.4-10.2) mg/dL - Imaging and Cardiology EKG: image reviewed
[2017-10-03] MEDS: AMBIEN PO PRN (23:53)
[2017-10-04] MEDS: BIDIL 20/37.5MG PO SCH ×3 (05:35→22:03)
[2017-10-04 07:19] LABS: Hematocrit 32.3 % (35.5-45.6); Hemoglobin 10.8 gm/dl (11.8-15.2); Mean Corpuscular HGB Conc 33 % (32-34); Mean Corpuscular Hemoglobin 29 pg (28-32); Mean Corpuscular Volume 86 fl (84-94); Platelet Count 366 K/mm3 (140-440); Red Blood Count 3.77 M/mm3 (3.65-5.03); Red Cell Distribution Width 15.6 % (13.2-15.2)
[2017-10-04 07:37] LABS: Calcium 7.8 mg/dL (8.4-10.2)
[2017-10-04 09:05] LABS: Anisocytosis 1+; Basophils % (Manual) 0 % (0.0-1.8); Total Cells Counted 100
--- NOTE | 2017-10-04 10:01 | Progress Note ---
Assessment and Plan - Patient Problems (1) Acute congestive heart failure Current Visit: Yes Status: Acute Qualifiers: Congestive heart failure type: unspecified Qualified Code(s): I50.9 - Heart failure, unspecified (2) NSVT (nonsustained ventricular tachycardia) Current Visit: Yes Status: Acute (3) Cardiomyopathy Current Visit: Yes Status: Acute (4) Diabetes mellitus type 2, insulin dependent Current Visit: No Status: Acute Subjective Date of service: 10/04/17 Principal diagnosis: Acute Hypoxemic Resp Failure; Bilateral Pulmonary Infiltrates; HFrEF Interval history: IMPROVED C\O BLURRED VISION Objective Vital Signs Temp Pulse Resp BP BP Pulse Ox 10/04/17 08:52 100 10/04/17 05:35 114 H 10/04/17 04:49 99.1 F 112 H 18 141/101 95 10/04/17 00:58 97.7 F 110 H 20 130/90 97 10/03/17 22:00 112 H 97 10/03/17 19:25 99.3 F 123 H 20 133/97 93 10/03/17 17:29 98.3 F 118 H 138/103 10/03/17 16:42 118 H 100 10/03/17 14:05 98.6 F 103 H 18 135/92 10/03/17 14:00 103 H 123/87 10/03/17 13:45 100 H 133/87 10/03/17 13:30 101 H 130/86 10/03/17 13:15 105 H 148/98 10/03/17 13:00 109 H 146/102 10/03/17 12:45 102 H 128/84 10/03/17 12:30 102 H 121/83 10/03/17 12:15 104 H 123/80 10/03/17 12:00 104 H 130/82 10/03/17 11:45 110 H 125/79 10/03/17 11:30 111 H 141/95 10/03/17 11:15 109 H 143/93 10/03/17 11:10 98.2 F 109 H 22 141/95 10/03/17 10:00 107 H 123/84 97 - Physical Examination General: No Apparent Distress, Other (OW) HEENT: Positive: PERRL Neck: Positive: neck supple, trachea midline Cardiac: Positive: Reg Rate and Rhythm Lungs: Positive: clear to auscultation Neuro: Positive: Grossly Intact Abdomen: Positive: Soft Skin: Positive: Clear Extremities: Absent: edema - Labs and Meds CBC 10/04/17 Range/Units 05:49 WBC 7.4 (4.5-11.0) K/mm3 RBC 3.77 (3.65-5.03) M/mm3 Hgb 10.8 L (11.8-15.2) gm/dl Hct 32.3 L (35.5-45.6) % Plt Count 366 (140-440) K/mm3 Comprehensive Metabolic Panel 10/04/17 Range/Units 05:49 Sodium 133 L (137-145) mmol/L Potassium 4.3 (3.6-5.0) mmol/L Chloride 93.7 L (98-107) mmol/L Carbon Dioxide 28 (22-30) mmol/L BUN 23 H (9-20) mg/dL Creatinine 3.2 H (0.8-1.5) mg/dL Glucose 79 (75-100) mg/dL Calcium 7.8 L (8.4-10.2) mg/dL - Imaging and Cardiology EKG: image reviewed
[2017-10-04] MEDS: NOVOLOG SUB-Q SCH ×3 (10:27→22:03)
[2017-10-04] MEDS: BABY ASPIRIN PO SCH (10:28)
[2017-10-04] MEDS: LEVAQUIN PO SCH (10:28)
[2017-10-04] MEDS: PROTONIX PO SCH (10:28)
[2017-10-04] MEDS: LOVENOX SUB-Q SCH (10:29)
[2017-10-04] MEDS: ZYVOX PO SCH ×2 (10:29→22:02)
[2017-10-04] MEDS: LOPRESSOR PO SCH ×3 (10:32→22:03)
--- NOTE | 2017-10-04 13:10 | Progress Note ---
Assessment and Plan Assessment and plan: Acute hypoxic respiratory failure -BIPAP as clinically indicated -Etiology secondary to bilateral pneumonia Acute Renal failure -Patient with Vas-Cath placed yesterday and hemodialysis initiated. HD again today for clearance and volume removal -Assess need for HD on daily basis -Avoid Nephrotoxic agents -Renally dose medications -Obtain daily weights -Monitor intake and output -Monitor renal function closely -Renal ultrasound showed no hydronephrosis -Nephrology following Sepsis -Etiology secondary to pneumonia. -follow up Legionella urine antigen, Streptococcus pneumoniae urine antigen -Blood cultures thus far negative. -continue abx per ID Bilateral pneumonia - On IV antibiotics as above - Pulmonary consult appreciated Cardiomyopathy - EF of 10-15%, systolic dysfunction - continue with CHF medications -Patient previously on milrinone drip per cardiology - Cardiology following - Lexiscan stress test to be done once stable. NSVT -Patient was sent to be run of [facility] -Consider ICD as outpatient per cardiology Acute on chronic systolic heart failure. -Continue aggressive medical therapy with IV milrinone and IV diuresis. Hyponatremia -Fluid restriction of 750ml per day -Follow BMP DM with hyperglycemia - SSI and basal insulin Blurry vision -Ophthalmology outpatient follow-up DVT prophylaxis - On lovenox - patient is not stable enough to transfer to [facility]. History Interval history: No new issues overnight. Hospitalist Physical - Constitutional Vitals: Temp Pulse Resp BP Pulse Ox 99.1 F 112 H 20 132/79 100 10/04/17 04:49 10/04/17 10:32 10/04/17 10:00 10/04/17 10:32 10/04/17 08:52 General appearance: Present: no acute distress - EENT Eyes: Present: PERRL, EOM intact ENT: hearing intact, clear oral mucosa, dentition normal - Neck Neck: Present: supple, normal ROM - Respiratory Respiratory effort: normal Respiratory: bilateral: CTA - Cardiovascular Rhythm: regular Heart Sounds: Present: S1 & S2. Absent: gallop, rub - Extremities Extremities: no ischemia, No edema, Full ROM - Abdominal General gastrointestinal: soft, non-tender, non-distended, normal bowel sounds - Integumentary Integumentary: Present: clear, warm, dry - Neurologic Neurologic: CNII-XII intact, moves all extremities Results - Labs CBC & Chem 7: 10/04/17 05:49 10/04/17 05:49 Labs: Laboratory Last Values WBC 7.4 K/mm3 (4.5-11.0) 10/04/17 05:49 RBC 3.77 M/mm3 (3.65-5.03) 10/04/17 05:49 Hgb 10.8 gm/dl (11.8-15.2) L 10/04/17 05:49 Hct 32.3 % (35.5-45.6) L 10/04/17 05:49 MCV 86 fl (84-94) 10/04/17 05:49 MCH 29 pg (28-32) 10/04/17 05:49 MCHC 33 % (32-34) 10/04/17 05:49 RDW 15.6 % (13.2-15.2) H 10/04/17 05:49 Plt Count 366 K/mm3 (140-440) 10/04/17 05:49 Lymph % (Auto) 13.7 % (13.4-35.0) 10/02/17 06:21 Starke % (Auto) [employer] 10/04/17 05:49 Eos % (Auto) 2.8 % (0.0-4.3) 10/02/17 06:21 Baso % (Auto) 0.5 % (0.0-1.8) 10/02/17 06:21 Lymph # 0.9 K/mm3 (1.2-5.4) L 10/02/17 06:21 Starke # 0.8 K/mm3 (0.0-0.8) 10/02/17 06:21 Eos # 0.2 K/mm3 (0.0-0.4) 10/02/17 06:21 Baso # 0.0 K/mm3 (0.0-0.1) 10/02/17 06:21 Add Manual Diff Complete 10/04/17 05:49 Total Counted 100 10/04/17 05:49 Seg Neutrophils % 70.6 % (40.0-70.0) H 10/02/17 06:21 Seg Neuts % (Manual) 72.0 % (40.0-70.0) H 10/04/17 05:49 Band Neutrophils % 0 % 10/04/17 05:49 Lymphocytes % (Manual) 17.0 % (13.4-35.0) 10/04/17 05:49 Reactive Lymphs % (Man) 0 % 10/04/17 05:49 Monocytes % (Manual) 9.0 % (0.0-7.3) H 10/04/17 05:49 Eosinophils % (Manual) 2.0 % (0.0-4.3) 10/04/17 05:49 Basophils % (Manual) 0 % (0.0-1.8) 10/04/17 05:49 Metamyelocytes % 0 % 10/04/17 05:49 Myelocytes % 0 % 10/04/17 05:49 Promyelocytes % 0 % 10/04/17 05:49 Blast Cells % 0 % 10/04/17 05:49 Nucleated RBC % Not Reportable 10/04/17 05:49 Seg Neutrophils # 4.6 K/mm3 (1.8-7.7) 10/02/17 06:21 Seg Neutrophils # Man 5.3 K/mm3 (1.8-7.7) 10/04/17 05:49 Band Neutrophils # 0.0 K/mm3 10/04/17 05:49 Lymphocytes # (Manual) 1.3 K/mm3 (1.2-5.4) 10/04/17 05:49 Abs React Lymphs (Man) 0.0 K/mm3 10/04/17 05:49 Monocytes # (Manual) 0.7 K/mm3 (0.0-0.8) 10/04/17 05:49 Eosinophils # (Manual) 0.1 K/mm3 (0.0-0.4) 10/04/17 05:49 Basophils # (Manual) 0.0 K/mm3 (0.0-0.1) 10/04/17 05:49 Metamyelocytes # 0.0 K/mm3 10/04/17 05:49 Myelocytes # 0.0 K/mm3 10/04/17 05:49 Promyelocytes # 0.0 K/mm3 10/04/17 05:49 Blast Cells # 0.0 K/mm3 10/04/17 05:49 WBC Morphology Not Reportable 10/04/17 05:49 Hypersegmented Neuts Not Reportable 10/04/17 05:49 Hyposegmented Neuts Not Reportable 10/04/17 05:49 Hypogranular Neuts Not Reportable 10/04/17 05:49 Smudge Cells Not Reportable 10/04/17 05:49 Toxic Granulation Not Reportable 10/04/17 05:49 Toxic Vacuolation Not Reportable 10/04/17 05:49 Dohle Bodies Not Reportable 10/04/17 05:49 Pelger-Huet Anomaly Not Reportable 10/04/17 05:49 Diaz Rods Not Reportable 10/04/17 05:49 Platelet Estimate Appears normal 10/04/17 05:49 Clumped Platelets Not Reportable 10/04/17 05:49 Plt Clumps, EDTA Not Reportable 10/04/17 05:49 Large Platelets Not Reportable 10/04/17 05:49 Giant Platelets Not Reportable 10/04/17 05:49 Platelet Satelliting Not Reportable 10/04/17 05:49 Plt Morphology Comment Not Reportable 10/04/17 05:49 RBC Morphology Not Reportable 10/04/17 05:49 Dimorphic RBCs Not Reportable 10/04/17 05:49 Polychromasia Few 10/04/17 05:49 Hypochromasia Not Reportable 10/04/17 05:49 Poikilocytosis Not Reportable 10/04/17 05:49 Anisocytosis 1+ 10/04/17 05:49 Microcytosis Not Reportable 10/04/17 05:49 Macrocytosis Not Reportable 10/04/17 05:49 Spherocytes Not Reportable 10/04/17 05:49 Pappenheimer Bodies Not Reportable 10/04/17 05:49 Sickle Cells Not Reportable 10/04/17 05:49 Target Cells Not Reportable 10/04/17 05:49 Tear Drop Cells Not Reportable 10/04/17 05:49 Ovalocytes Not Reportable 10/04/17 05:49 Helmet Cells Not Reportable 10/04/17 05:49 [place] Bodies Not Reportable 10/04/17 05:49 [place] Rings Not Reportable 10/04/17 05:49 [place] Cells Not Reportable 10/04/17 05:49 Bite Cells Not Reportable 10/04/17 05:49 Crenated Cell Not Reportable 10/04/17 05:49 Elliptocytes Not Reportable 10/04/17 05:49 Acanthocytes (Spur) Not Reportable 10/04/17 05:49 Rouleaux Not Reportable 10/04/17 05:49 Hemoglobin C Crystals Not Reportable 10/04/17 05:49 Schistocytes Not Reportable 10/04/17 05:49 Malaria parasites Not Reportable 10/04/17 05:49 Dash Bodies Not Reportable 10/04/17 05:49 Hem Pathologist Commnt No 10/04/17 05:49 POC ABG pH 7.459 (7.35-7.45) H 09/23/17 15:04 POC ABG pCO2 34.8 (35-45) L 09/23/17 15:04 POC ABG pO2 54 (80-105) L 09/23/17 15:04 POC ABG HCO3 24.7 09/23/17 15:04 POC ABG Total CO2 26 09/23/17 15:04 POC ABG O2 Sat 89 09/23/17 15:04 POC ABG Base Excess 1 09/23/17 15:04 FiO2 21 % 09/23/17 15:04 Sodium 133 mmol/L (137-145) L 10/04/17 05:49 Potassium 4.3 mmol/L (3.6-5.0) 10/04/17 05:49 Chloride 93.7 mmol/L (98-107) L 10/04/17 05:49 Carbon Dioxide 28 mmol/L (22-30) 10/04/17 05:49 Anion Gap 16 mmol/L 10/04/17 05:49 BUN 23 mg/dL (9-20) H 10/04/17 05:49 Creatinine 3.2 mg/dL (0.8-1.5) H 10/04/17 05:49 Estimated GFR 26 ml/min 10/04/17 05:49 BUN/Creatinine Ratio 7 % 10/04/17 05:49 Glucose 79 mg/dL (75-100) 10/04/17 05:49 POC Glucose 140 (70-105) H 10/04/17 12:01 Osmolality 299 Mosm/kg 09/30/17 05:21 Calcium 7.8 mg/dL (8.4-10.2) L 10/04/17 05:49 Phosphorus 3.30 mg/dL (2.5-4.5) 09/30/17 05:21 Magnesium 1.70 mg/dL (1.7-2.3) 09/26/17 05:35 Total Creatine Kinase 170 units/L (55-170) 09/23/17 04:10 CK-MB (CK-2) 1.4 ng/mL (0.0-4.0) 09/23/17 04:10 CK-MB (CK-2) Rel Index 0.8 (0-4) 09/23/17 04:10 Troponin T 0.287 ng/mL (0.00-0.029) H* 09/23/17 04:10 C-Reactive Protein 7.60 mg/dL (0.00-1.30) H 10/01/17 20:41 NT-Pro-B Natriuret Pep 5093 pg/mL (0-450) H 09/22/17 21:31 Triglycerides 226 mg/dL (2-149) H 09/22/17 21:31 Cholesterol 235 mg/dL (50-199) H 09/22/17 21:31 LDL Cholesterol Direct 164 mg/dL (50-130) H 09/22/17 21:31 HDL Cholesterol 26 mg/dL (40-59) L 09/22/17 21:31 Cholesterol/HDL Ratio 9.03 % 09/22/17 21:31 Urine Eosinophils None seen (None Seen) 09/29/17 Unknown Vancomycin Trough 36.3 ug/mL (5.0-20.0) H 09/28/17 07:00 Hepatitis A IgM Ab Non-reactive (NonReactive) 10/02/17 17:35 Hep Bs Antigen Non-reactive (Negative) 10/02/17 17:35 Hep B Core IgM Ab Non-reactive (NonReactive) 10/02/17 17:35 Hepatitis C Antibody Non-reactive (NonReactive) 10/02/17 17:35 HIV-1 RNA PCR copies/ml TNR 09/27/17 21:18 HIV-1 RNA (PCR) log TNR 09/27/17 21:18 HIV 1&2 Antibody Rapid Non react (Non React) 09/27/17 21:18 HIV P24 Antigen Non react (Non React) 09/27/17 21:18 Miscellaneous Test Flexitest 1 H 09/27/17 21:19
--- NOTE | 2017-10-04 15:46 | Progress Note ---
Assessment and Plan - Patient Problems (1) Acute renal failure (ARF) Current Visit: Yes Status: Acute Plan to address problem: Received hemodialysis on 10/02/17 and 10/03/17 Assess dialysis needs daily Avoid Nephrotoxic agents Renally dose medications Obtain daily weights Monitor intake and output Renal ultrasound reviewed-No Hydronephrosis or mass. Continue to monitor renal function closely (2) Bilateral pneumonia Current Visit: Yes Status: Acute Qualifiers: Pneumonia type: due to unspecified organism Lung location: unspecified part of lung Qualified Code(s): J18.9 - Pneumonia, unspecified organism Plan to address problem: Patient is on IV Levaquin and Zyvox (3) Systolic heart failure Current Visit: Yes Status: Acute Plan to address problem: Was on Milronone drip as per Cardiology (4) Diabetes mellitus type 2, insulin dependent Current Visit: No Status: Acute Plan to address problem: Insulin as per Primary team (5) Hyponatremia Current Visit: Yes Status: Acute Plan to address problem: Fluid restriction of 750 ml per No salt tablets due to CHF (6) Hypertension Current Visit: Yes Status: Acute Plan to address problem: Blood pressures are stable. Continue on Coreg. Subjective Date of service: 10/04/17 Principal diagnosis: Acute Hypoxemic Resp Failure; Bilateral Pulmonary Infiltrates; HFrEF Interval history: Patient seen lying in bed on venturi mask. Awake and alert. States feels the same. Objective - Vital Signs Vital signs: Vital Signs - 12hr 10/04/17 10/04/17 10/04/17 04:49 05:35 08:52 Temperature 99.1 F Pulse Rate 112 H 114 H Pulse Rate [ Apical] Respiratory 18 Rate Blood Pressure 141/101 Blood Pressure [Left] O2 Sat by Pulse 95 100 Oximetry 10/04/17 10/04/17 10/04/17 10:00 10:32 12:30 Temperature 97.6 F Pulse Rate 112 H 76 Pulse Rate [ 112 H Apical] Respiratory 20 21 Rate Blood Pressure 132/79 Blood Pressure 128/89 [Left] O2 Sat by Pulse 91 Oximetry 10/04/17 14:36 Temperature Pulse Rate 101 H Pulse Rate [ Apical] Respiratory Rate Blood Pressure 128/89 Blood Pressure [Left] O2 Sat by Pulse Oximetry - General Appearance General appearance: well-developed, fatigue EENT: ATNC, PERRL, hearing intact, vision intact Neck: no JVD, supple Respiratory: Present: Decreased Breath Sounds Cardiology: tachycardia, S1S2 Gastrointestinal: normoactive bowel sounds Integumentary: warm and dry Neurologic: alert and oriented x3 Musculoskeletal: other (trace edema to BLE) - Lab 10/04/17 05:49 10/04/17 05:49 Most recent lab results Calcium 7.8 mg/dL (8.4-10.2) L 10/04/17 05:49 Phosphorus 3.30 mg/dL (2.5-4.5) 09/30/17 05:21 Magnesium 1.70 mg/dL (1.7-2.3) 09/26/17 05:35
--- NOTE | 2017-10-04 16:55 | Progress Note ---
Assessment and Plan Acute hypoxemic respiratory failure Bilateral pneumonia vs Pulmonary Edema Hyponatremia Diabetes, poorly controlled Morbid obesity Systolic heart failure, EF 15% Tobacco abuse disorder (Suspect significantly CT chest changes and mediastinopathy related to chronic pulmonary edema from decompensated CHF) - empiric antibiotics per ID recs; will send sputum for C&S - risks outweigh likely benefits from bronchoscopy at this time - continue supplemental oxygen to keep O2 sats>90% - continue heart failure measures, fluid and free water restriction - milrinone titration per cardiology - continue SSI for glycemic control - VTE prophylaxis - Smoking cessation counselling done at bedside again - continue nicotine withdrawal precautions - Outpatient sleep study ...36' Subjective Date of service: 10/04/17 Principal diagnosis: Acute Hypoxemic Resp Failure; Bilateral Pulmonary Infiltrates; HFrEF Interval history: Patient is seen today for: Acute Hypoxemic Resp Failure; Bilateral Pulmonary Infiltrates; HFrEF Seen and examined at bedside; 24hour events reviewed; nursing and respiratory care staff consulted; no adverse overnight events reported to me; resting in bed ; Objective Vital Signs - 12hr 10/04/17 10/04/17 10/04/17 05:35 08:52 10:00 Temperature Pulse Rate 114 H 109 H Pulse Rate [ 112 H Apical] Respiratory 20 Rate Blood Pressure Blood Pressure [Left] O2 Sat by Pulse 100 Oximetry 10/04/17 10/04/17 10/04/17 10:32 12:30 14:36 Temperature 97.6 F Pulse Rate 112 H 76 101 H Pulse Rate [ Apical] Respiratory 21 Rate Blood Pressure 132/79 128/89 Blood Pressure 128/89 [Left] O2 Sat by Pulse 91 Oximetry Constitutional: no acute distress, alert Eyes: non-icteric ENT: oropharynx moist, other (No thyromegaly) Neck: supple, no lymphadenopathy, no JVD Effort: mildly labored Ascultation: Bilateral: diminished breath sounds, rales (bases) Percussion: Bilateral: not dull Cardiovascular: regular rate and rhythm, murmur noted, other (no rubs) Gastrointestinal: normoactive bowel sounds, soft, non-tender, non-distended, other (no palpable HSM) Integumentary: normal Extremities: no cyanosis, pulses normal, no ischemia or petechiae, edema Neurologic: normal mental status, non-focal exam, pupils equal and round, CN II- XII normal Psychiatric: mood appropriate, affect normal CBC and BMP: 10/10/17 08:35 10/10/17 08:35 ABG, PT/INR, D-dimer: ABG POC ABG pH 7.459 (7.35-7.45) H 09/23/17 15:04 POC ABG pCO2 34.8 (35-45) L 09/23/17 15:04 POC ABG pO2 54 (80-105) L 09/23/17 15:04 POC ABG HCO3 24.7 09/23/17 15:04 POC ABG Total CO2 26 09/23/17 15:04 POC ABG O2 Sat 89 09/23/17 15:04 Abnormal lab findings: Abnormal Labs 09/22/17 09/22/17 09/22/17 21:30 21:31 21:31 WBC RBC Hgb Hct MCH RDW 15.3 H Lymph % (Auto) [place] % (Auto) 9.6 H Eos % (Auto) Lymph # [place] # 0.9 H Seg Neutrophils % 72.0 H Seg Neuts % (Manual) Monocytes % (Manual) Seg Neutrophils # POC ABG pH POC ABG pCO2 POC ABG pO2 Sodium Chloride Carbon Dioxide BUN Creatinine Glucose POC Glucose Calcium Total Creatine Kinase 371 H Troponin T 0.260 H* C-Reactive Protein NT-Pro-B Natriuret Pep 5093 H Triglycerides 226 H Cholesterol 235 H LDL Cholesterol Direct 164 H HDL Cholesterol 26 L Vancomycin Trough Miscellaneous Test 09/22/17 09/22/17 09/23/17 22:54 22:54 04:00 WBC RBC Hgb Hct MCH RDW Lymph % (Auto) [place] % (Auto) 11.9 H Eos % (Auto) Lymph # [place] # Seg Neutrophils % Seg Neuts % (Manual) Monocytes % (Manual) Seg Neutrophils # POC ABG pH POC ABG pCO2 POC ABG pO2 Sodium 129 L Chloride 91.6 L Carbon Dioxide BUN Creatinine 0.7 L Glucose 256 H POC Glucose Calcium 7.9 L Total Creatine Kinase 211 H Troponin T 0.344 H* D C-Reactive Protein NT-Pro-B Natriuret Pep Triglycerides Cholesterol LDL Cholesterol Direct HDL Cholesterol Vancomycin Trough Miscellaneous Test 09/23/17 09/23/17 09/23/17 04:00 04:10 09:09 WBC RBC Hgb Hct MCH RDW Lymph % (Auto) [place] % (Auto) Eos % (Auto) Lymph # [place] # Seg Neutrophils % Seg Neuts % (Manual) Monocytes % (Manual) Seg Neutrophils # POC ABG pH POC ABG pCO2 POC ABG pO2 Sodium 136 L D Chloride 95.3 L Carbon Dioxide BUN Creatinine Glucose 181 H POC Glucose 166 H Calcium 7.7 L Total Creatine Kinase Troponin T 0.287 H* C-Reactive Protein NT-Pro-B Natriuret Pep Triglycerides Cholesterol LDL Cholesterol Direct HDL Cholesterol Vancomycin Trough Miscellaneous Test 09/23/17 09/23/17 09/23/17 11:40 13:19 15:04 WBC RBC Hgb Hct MCH RDW Lymph % (Auto) [place] % (Auto) Eos % (Auto) Lymph # [place] # Seg Neutrophils % Seg Neuts % (Manual) Monocytes % (Manual) Seg Neutrophils # POC ABG pH 7.459 H POC ABG pCO2 34.8 L POC ABG pO2 54 L Sodium Chloride Carbon Dioxide BUN Creatinine Glucose POC Glucose 221 H 267 H Calcium Total Creatine Kinase Troponin T C-Reactive Protein NT-Pro-B Natriuret Pep Triglycerides Cholesterol LDL Cholesterol Direct HDL Cholesterol Vancomycin Trough Miscellaneous Test 09/23/17 09/23/17 09/24/17 15:57 22:07 04:40 WBC RBC Hgb Hct MCH RDW Lymph % (Auto) [place] % (Auto) 11.4 H Eos % (Auto) Lymph # [place] # Seg Neutrophils % Seg Neuts % (Manual) Monocytes % (Manual) Seg Neutrophils # POC ABG pH POC ABG pCO2 POC ABG pO2 Sodium Chloride Carbon Dioxide BUN Creatinine Glucose POC Glucose 281 H 166 H Calcium Total Creatine Kinase Troponin T C-Reactive Protein NT-Pro-B Natriuret Pep Triglycerides Cholesterol LDL Cholesterol Direct HDL Cholesterol Vancomycin Trough Miscellaneous Test 09/24/17 09/24/17 09/24/17 04:40 08:42 12:17 WBC RBC Hgb Hct MCH RDW Lymph % (Auto) [place] % (Auto) Eos % (Auto) Lymph # [place] # Seg Neutrophils % Seg Neuts % (Manual) Monocytes % (Manual) Seg Neutrophils # POC ABG pH POC ABG pCO2 POC ABG pO2 Sodium 133 L Chloride 95.6 L Carbon Dioxide BUN Creatinine 0.7 L Glucose 251 H POC Glucose 173 H 209 H Calcium 7.8 L Total Creatine Kinase Troponin T C-Reactive Protein NT-Pro-B Natriuret Pep Triglycerides Cholesterol LDL Cholesterol Direct HDL Cholesterol Vancomycin Trough Miscellaneous Test 09/24/17 09/24/17 09/25/17 16:13 21:21 12:44 WBC RBC Hgb Hct MCH RDW Lymph % (Auto) [place] % (Auto) Eos % (Auto) Lymph # [place] # Seg Neutrophils % Seg Neuts % (Manual) Monocytes % (Manual) Seg Neutrophils # POC ABG pH POC ABG pCO2 POC ABG pO2 Sodium Chloride Carbon Dioxide BUN Creatinine Glucose POC Glucose 248 H 152 H 185 H Calcium Total Creatine Kinase Troponin T C-Reactive Protein NT-Pro-B Natriuret Pep Triglycerides Cholesterol LDL Cholesterol Direct HDL Cholesterol Vancomycin Trough Miscellaneous Test 09/25/17 09/25/17 09/26/17 17:18 23:10 05:35 WBC 15.6 H RBC Hgb Hct MCH RDW Lymph % (Auto) [place] % (Auto) Eos % (Auto) Lymph # [place] # Seg Neutrophils % 78.5 H Seg Neuts % (Manual) Monocytes % (Manual) Seg Neutrophils # 12.2 H POC ABG pH POC ABG pCO2 POC ABG pO2 Sodium Chloride Carbon Dioxide BUN Creatinine Glucose POC Glucose 186 H 187 H Calcium Total Creatine Kinase Troponin T C-Reactive Protein NT-Pro-B Natriuret Pep Triglycerides Cholesterol LDL Cholesterol Direct HDL Cholesterol Vancomycin Trough Miscellaneous Test 09/26/17 09/26/17 09/26/17 05:35 09:02 12:20 WBC RBC Hgb Hct MCH RDW Lymph % (Auto) [place] % (Auto) Eos % (Auto) Lymph # [place] # Seg Neutrophils % Seg Neuts % (Manual) Monocytes % (Manual) Seg Neutrophils # POC ABG pH POC ABG pCO2 POC ABG pO2 Sodium 133 L Chloride 95.2 L Carbon Dioxide BUN Creatinine 0.7 L Glucose 161 H POC Glucose 131 H 199 H Calcium 8.3 L Total Creatine Kinase Troponin T C-Reactive Protein NT-Pro-B Natriuret Pep Triglycerides Cholesterol LDL Cholesterol Direct HDL Cholesterol Vancomycin Trough Miscellaneous Test 09/26/17 09/26/17 09/27/17 16:39 21:45 07:24 WBC RBC Hgb Hct MCH RDW Lymph % (Auto) [place] % (Auto) Eos % (Auto) Lymph # [place] # Seg Neutrophils % Seg Neuts % (Manual) Monocytes % (Manual) Seg Neutrophils # POC ABG pH POC ABG pCO2 POC ABG pO2 Sodium Chloride Carbon Dioxide BUN Creatinine Glucose POC Glucose 209 H 194 H 210 H Calcium Total Creatine Kinase Troponin T C-Reactive Protein NT-Pro-B Natriuret Pep Triglycerides Cholesterol LDL Cholesterol Direct HDL Cholesterol Vancomycin Trough Miscellaneous Test 09/27/17 09/27/17 09/27/17 09:20 09:20 11:50 WBC RBC Hgb 11.0 L Hct MCH RDW Lymph % (Auto) [place] % (Auto) Eos % (Auto) Lymph # [place] # Seg Neutrophils % 77.2 H Seg Neuts % (Manual) Monocytes % (Manual) Seg Neutrophils # POC ABG pH POC ABG pCO2 POC ABG pO2 Sodium 134 L Chloride 96.1 L Carbon Dioxide BUN 21 H Creatinine Glucose 139 H POC Glucose Calcium 8.0 L Total Creatine Kinase Troponin T C-Reactive Protein NT-Pro-B Natriuret Pep Triglycerides Cholesterol LDL Cholesterol Direct HDL Cholesterol Vancomycin Trough 46.8 H Miscellaneous Test 09/27/17 09/27/17 09/27/17 11:50 12:18 17:00 WBC RBC Hgb 10.7 L Hct 32.1 L D MCH RDW Lymph % (Auto) [place] % (Auto) Eos % (Auto) Lymph # [place] # Seg Neutrophils % 80.6 H Seg Neuts % (Manual) Monocytes % (Manual) Seg Neutrophils # POC ABG pH POC ABG pCO2 POC ABG pO2 Sodium Chloride Carbon Dioxide BUN Creatinine Glucose POC Glucose 274 H 169 H Calcium Total Creatine Kinase Troponin T C-Reactive Protein NT-Pro-B Natriuret Pep Triglycerides Cholesterol LDL Cholesterol Direct HDL Cholesterol Vancomycin Trough Miscellaneous Test 09/27/17 09/27/17 09/27/17 21:18 21:19 23:28 WBC RBC Hgb Hct MCH RDW Lymph % (Auto) [place] % (Auto) Eos % (Auto) Lymph # [place] # Seg Neutrophils % Seg Neuts % (Manual) Monocytes % (Manual) Seg Neutrophils # POC ABG pH POC ABG pCO2 POC ABG pO2 Sodium Chloride Carbon Dioxide BUN Creatinine Glucose POC Glucose 251 H Calcium Total Creatine Kinase Troponin T C-Reactive Protein 34.90 H NT-Pro-B Natriuret Pep Triglycerides Cholesterol LDL Cholesterol Direct HDL Cholesterol Vancomycin Trough Miscellaneous Test Flexitest 1 H 09/27/17 09/28/17 09/28/17 23:49 07:00 07:00 WBC RBC 3.44 L Hgb 9.9 L Hct 29.6 L MCH RDW Lymph % (Auto) [place] % (Auto) Eos % (Auto) Lymph # 1.0 L [place] # Seg Neutrophils % 76.2 H Seg Neuts % (Manual) Monocytes % (Manual) Seg Neutrophils # POC ABG pH POC ABG pCO2 POC ABG pO2 Sodium 128 L Chloride 92.1 L Carbon Dioxide 20 L BUN 40 H Creatinine 3.1 H D Glucose 199 H POC Glucose 233 H Calcium 7.5 L Total Creatine Kinase Troponin T C-Reactive Protein NT-Pro-B Natriuret Pep Triglycerides Cholesterol LDL Cholesterol Direct HDL Cholesterol Vancomycin Trough Miscellaneous Test 09/28/17 09/28/17 09/28/17 07:00 08:03 13:31 WBC RBC Hgb Hct MCH RDW Lymph % (Auto) [place] % (Auto) Eos % (Auto) Lymph # [place] # Seg Neutrophils % Seg Neuts % (Manual) Monocytes % (Manual) Seg Neutrophils # POC ABG pH POC ABG pCO2 POC ABG pO2 Sodium Chloride Carbon Dioxide BUN Creatinine Glucose POC Glucose 165 H 237 H Calcium Total Creatine Kinase Troponin T C-Reactive Protein NT-Pro-B Natriuret Pep Triglycerides Cholesterol LDL Cholesterol Direct HDL Cholesterol Vancomycin Trough 36.3 H Miscellaneous Test 09/28/17 09/28/17 09/29/17 16:20 22:12 05:20 WBC RBC Hgb 11.4 L Hct 34.5 L MCH RDW Lymph % (Auto) 10.5 L [place] % (Auto) 9.1 H Eos % (Auto) Lymph # 0.5 L [place] # Seg Neutrophils % 75.8 H Seg Neuts % (Manual) Monocytes % (Manual) Seg Neutrophils # POC ABG pH POC ABG pCO2 POC ABG pO2 Sodium Chloride Carbon Dioxide BUN Creatinine Glucose POC Glucose 323 H 164 H Calcium Total Creatine Kinase Troponin T C-Reactive Protein NT-Pro-B Natriuret Pep Triglycerides Cholesterol LDL Cholesterol Direct HDL Cholesterol Vancomycin Trough Miscellaneous Test 09/29/17 09/29/17 09/29/17 05:20 07:53 16:21 WBC RBC Hgb Hct MCH RDW Lymph % (Auto) [place] % (Auto) Eos % (Auto) Lymph # [place] # Seg Neutrophils % Seg Neuts % (Manual) Monocytes % (Manual) Seg Neutrophils # POC ABG pH POC ABG pCO2 POC ABG pO2 Sodium 128 L Chloride 91.6 L Carbon Dioxide 21 L BUN 51 H Creatinine 3.8 H Glucose 161 H POC Glucose 128 H 141 H Calcium Total Creatine Kinase Troponin T C-Reactive Protein NT-Pro-B Natriuret Pep Triglycerides Cholesterol LDL Cholesterol Direct HDL Cholesterol Vancomycin Trough Miscellaneous Test 09/29/17 09/30/17 09/30/17 22:17 05:21 05:21 WBC RBC Hgb 10.3 L Hct 32.1 L MCH 27 L RDW Lymph % (Auto) 11.6 L [place] % (Auto) 9.3 H Eos % (Auto) 4.9 H Lymph # 0.8 L [place] # Seg Neutrophils % 73.6 H Seg Neuts % (Manual) Monocytes % (Manual) Seg Neutrophils # POC ABG pH POC ABG pCO2 POC ABG pO2 Sodium 127 L Chloride 90.9 L Carbon Dioxide BUN 52 H Creatinine 4.5 H Glucose 187 H POC Glucose 158 H Calcium 7.9 L Total Creatine Kinase Troponin T C-Reactive Protein NT-Pro-B Natriuret Pep Triglycerides Cholesterol LDL Cholesterol Direct HDL Cholesterol Vancomycin Trough Miscellaneous Test 09/30/17 09/30/17 09/30/17 07:47 11:55 21:44 WBC RBC Hgb Hct MCH RDW Lymph % (Auto) [place] % (Auto) Eos % (Auto) Lymph # [place] # Seg Neutrophils % Seg Neuts % (Manual) Monocytes % (Manual) Seg Neutrophils # POC ABG pH POC ABG pCO2 POC ABG pO2 Sodium Chloride Carbon Dioxide BUN Creatinine Glucose POC Glucose 137 H 184 H 141 H Calcium Total Creatine Kinase Troponin T C-Reactive Protein NT-Pro-B Natriuret Pep Triglycerides Cholesterol LDL Cholesterol Direct HDL Cholesterol Vancomycin Trough Miscellaneous Test 10/01/17 10/01/17 10/01/17 06:03 06:03 16:37 WBC RBC Hgb 11.3 L Hct 33.6 L MCH RDW Lymph % (Auto) 11.2 L [place] % (Auto) 10.2 H Eos % (Auto) Lymph # 1.1 L [place] # 1.0 H Seg Neutrophils % 74.5 H Seg Neuts % (Manual) Monocytes % (Manual) Seg Neutrophils # POC ABG pH POC ABG pCO2 POC ABG pO2 Sodium 130 L Chloride 92.3 L Carbon Dioxide BUN 53 H Creatinine 4.5 H Glucose POC Glucose 125 H Calcium 8.0 L Total Creatine Kinase Troponin T C-Reactive Protein NT-Pro-B Natriuret Pep Triglycerides Cholesterol LDL Cholesterol Direct HDL Cholesterol Vancomycin Trough Miscellaneous Test 10/01/17 10/01/17 10/02/17 20:41 21:47 06:21 WBC RBC Hgb 11.5 L Hct 34.5 L MCH RDW 15.3 H Lymph % (Auto) [place] % (Auto) 12.4 H Eos % (Auto) Lymph # 0.9 L [place] # Seg Neutrophils % 70.6 H Seg Neuts % (Manual) Monocytes % (Manual) Seg Neutrophils # POC ABG pH POC ABG pCO2 POC ABG pO2 Sodium Chloride Carbon Dioxide BUN Creatinine Glucose POC Glucose 115 H Calcium Total Creatine Kinase Troponin T C-Reactive Protein 7.60 H NT-Pro-B Natriuret Pep Triglycerides Cholesterol LDL Cholesterol Direct HDL Cholesterol Vancomycin Trough Miscellaneous Test 10/02/17 10/02/17 10/02/17 06:21 07:47 21:56 WBC RBC Hgb Hct MCH RDW Lymph % (Auto) [place] % (Auto) Eos % (Auto) Lymph # [place] # Seg Neutrophils % Seg Neuts % (Manual) Monocytes % (Manual) Seg Neutrophils # POC ABG pH POC ABG pCO2 POC ABG pO2 Sodium 133 L Chloride 92.7 L Carbon Dioxide BUN 51 H Creatinine 4.7 H Glucose 113 H POC Glucose 118 H 154 H Calcium 8.0 L Total Creatine Kinase Troponin T C-Reactive Protein NT-Pro-B Natriuret Pep Triglycerides Cholesterol LDL Cholesterol Direct HDL Cholesterol Vancomycin Trough Miscellaneous Test 10/03/17 10/03/17 10/03/17 06:13 06:13 16:50 WBC RBC Hgb 10.7 L Hct 31.9 L MCH RDW 15.6 H Lymph % (Auto) [place] % (Auto) Eos % (Auto) Lymph # [place] # Seg Neutrophils % Seg Neuts % (Manual) Monocytes % (Manual) Seg Neutrophils # POC ABG pH POC ABG pCO2 POC ABG pO2 Sodium 134 L Chloride 95.3 L Carbon Dioxide BUN 32 H Creatinine 3.7 H Glucose POC Glucose 126 H Calcium 7.8 L Total Creatine Kinase Troponin T C-Reactive Protein NT-Pro-B Natriuret Pep Triglycerides Cholesterol LDL Cholesterol Direct HDL Cholesterol Vancomycin Trough Miscellaneous Test 10/04/17 10/04/17 10/04/17 05:49 05:49 12:01 WBC RBC Hgb 10.8 L Hct 32.3 L MCH RDW 15.6 H Lymph % (Auto) [place] % (Auto) Eos % (Auto) Lymph # [place] # Seg Neutrophils % Seg Neuts % (Manual) 72.0 H Monocytes % (Manual) 9.0 H Seg Neutrophils # POC ABG pH POC ABG pCO2 POC ABG pO2 Sodium 133 L Chloride 93.7 L Carbon Dioxide BUN 23 H Creatinine 3.2 H Glucose POC Glucose 140 H Calcium 7.8 L Total Creatine Kinase Troponin T C-Reactive Protein NT-Pro-B Natriuret Pep Triglycerides Cholesterol LDL Cholesterol Direct HDL Cholesterol Vancomycin Trough Miscellaneous Test
[2017-10-04] MEDS: LEVEMIR SUB-Q SCH (22:01)
[2017-10-04] MEDS: AMBIEN PO PRN (22:08)
[2017-10-05] MEDS: LOPRESSOR PO SCH ×4 (04:00→21:39)
[2017-10-05] MEDS: BIDIL 20/37.5MG PO SCH (05:22)
[2017-10-05 06:03] LABS: Basophils # (Auto) 0.1 K/mm3 (0.0-0.1); Eosinophils # (Auto) 0.1 K/mm3 (0.0-0.4); Hematocrit 43.8 % (35.5-45.6); Hemoglobin 14.1 gm/dl (11.8-15.2); Lymphocytes # (Auto) 1.3 K/mm3 (1.2-5.4); Lymphocytes % (Auto) 20.3 % (13.4-35.0); Mean Corpuscular HGB Conc 32 % (32-34); Mean Corpuscular Hemoglobin 27 pg (28-32); Mean Corpuscular Volume 85 fl (84-94); Monocytes # (Auto) 0.9 K/mm3 (0.0-0.8); Monocytes % (Auto) 13.6 % (0.0-7.3); Platelet Count 331 K/mm3 (140-440); Red Blood Count 5.17 M/mm3 (3.65-5.03); Red Cell Distribution Width 15.5 % (13.2-15.2)
[2017-10-05 06:09] LABS: Calcium 7.8 mg/dL (8.4-10.2)
[2017-10-05] MEDS: ZYVOX PO SCH ×2 (09:50→21:40)
[2017-10-05] MEDS: NOVOLOG SUB-Q SCH ×4 (09:51→21:41)
[2017-10-05] MEDS: LOVENOX SUB-Q SCH (09:51)
[2017-10-05] MEDS: PROTONIX PO SCH (09:52)
[2017-10-05] MEDS: BABY ASPIRIN PO SCH (09:52)
--- NOTE | 2017-10-05 09:54 | Progress Note ---
Assessment and Plan Assessment and plan: Acute hypoxic respiratory failure -BIPAP as clinically indicated -Etiology secondary to bilateral pneumonia Acute Renal failure -Patient received hemodialysis on 10/02/17 and 10/03/17 -Assess need for HD on daily basis -Avoid Nephrotoxic agents -Renally dose medications -Obtain daily weights -Monitor intake and output -Monitor renal function closely -Renal ultrasound showed no hydronephrosis -Nephrology following Sepsis -Etiology secondary to pneumonia. -follow up Legionella urine antigen, Streptococcus pneumoniae urine antigen -Blood cultures thus far negative. -continue abx per ID Bilateral pneumonia - On IV antibiotics , Levaquin and Zyvox - Pulmonary consult appreciated Cardiomyopathy - EF of 10-15%, systolic dysfunction - continue with CHF medications -Patient previously on milrinone drip per cardiology - Cardiology following - Lexiscan stress test to be done once stable. NSVT -Patient was sent to be run of [employer] -Consider ICD as outpatient per cardiology Acute on chronic systolic heart failure. -Continue aggressive medical therapy with IV milrinone and IV diuresis. Hyponatremia -Fluid restriction of 750ml per day -Follow BMP DM with hyperglycemia - SSI and basal insulin Blurry vision -Ophthalmology outpatient follow-up DVT prophylaxis - On lovenox - patient is not stable enough to transfer to [facility]. History Interval history: No new issues overnight. Hospitalist Physical - Constitutional Vitals: Temp Pulse Resp BP Pulse Ox 97.7 F 107 H 20 117/81 95 10/05/17 07:30 10/05/17 07:30 10/05/17 07:30 10/05/17 07:30 10/05/17 07:30 General appearance: Present: no acute distress - EENT Eyes: Present: PERRL, EOM intact ENT: hearing intact, clear oral mucosa, dentition normal - Neck Neck: Present: supple, normal ROM - Respiratory Respiratory effort: normal Respiratory: bilateral: rales, rhonchi - Cardiovascular Rhythm: regular Heart Sounds: Present: S1 & S2. Absent: gallop, rub - Extremities Extremities: no ischemia, No edema, Full ROM - Abdominal General gastrointestinal: soft, non-tender, non-distended, normal bowel sounds - Integumentary Integumentary: Present: clear, warm, dry - Neurologic Neurologic: CNII-XII intact, moves all extremities Results - Labs CBC & Chem 7: 10/05/17 05:34 10/05/17 05:34 Labs: Laboratory Last Values WBC 6.5 K/mm3 (4.5-11.0) 10/05/17 05:34 RBC 5.17 M/mm3 (3.65-5.03) H 10/05/17 05:34 Hgb 14.1 gm/dl (11.8-15.2) D 10/05/17 05:34 Hct 43.8 % (35.5-45.6) D 10/05/17 05:34 MCV 85 fl (84-94) 10/05/17 05:34 MCH 27 pg (28-32) L 10/05/17 05:34 MCHC 32 % (32-34) 10/05/17 05:34 RDW 15.5 % (13.2-15.2) H 10/05/17 05:34 Plt Count 331 K/mm3 (140-440) 10/05/17 05:34 Lymph % (Auto) 20.3 % (13.4-35.0) 10/05/17 05:34 [place] % (Auto) 13.6 % (0.0-7.3) H 10/05/17 05:34 Eos % (Auto) 2.0 % (0.0-4.3) 10/05/17 05:34 Baso % (Auto) 1.0 % (0.0-1.8) 10/05/17 05:34 Lymph # 1.3 K/mm3 (1.2-5.4) 10/05/17 05:34 [place] # 0.9 K/mm3 (0.0-0.8) H 10/05/17 05:34 Eos # 0.1 K/mm3 (0.0-0.4) 10/05/17 05:34 Baso # 0.1 K/mm3 (0.0-0.1) 10/05/17 05:34 Add Manual Diff Complete 10/04/17 05:49 Total Counted 100 10/04/17 05:49 Seg Neutrophils % 63.1 % (40.0-70.0) 10/05/17 05:34 Seg Neuts % (Manual) 72.0 % (40.0-70.0) H 10/04/17 05:49 Band Neutrophils % 0 % 10/04/17 05:49 Lymphocytes % (Manual) 17.0 % (13.4-35.0) 10/04/17 05:49 Reactive Lymphs % (Man) 0 % 10/04/17 05:49 Monocytes % (Manual) 9.0 % (0.0-7.3) H 10/04/17 05:49 Eosinophils % (Manual) 2.0 % (0.0-4.3) 10/04/17 05:49 Basophils % (Manual) 0 % (0.0-1.8) 10/04/17 05:49 Metamyelocytes % 0 % 10/04/17 05:49 Myelocytes % 0 % 10/04/17 05:49 Promyelocytes % 0 % 10/04/17 05:49 Blast Cells % 0 % 10/04/17 05:49 Nucleated RBC % Not Reportable 10/04/17 05:49 Seg Neutrophils # 4.1 K/mm3 (1.8-7.7) 10/05/17 05:34 Seg Neutrophils # Man 5.3 K/mm3 (1.8-7.7) 10/04/17 05:49 Band Neutrophils # 0.0 K/mm3 10/04/17 05:49 Lymphocytes # (Manual) 1.3 K/mm3 (1.2-5.4) 10/04/17 05:49 Abs React Lymphs (Man) 0.0 K/mm3 10/04/17 05:49 Monocytes # (Manual) 0.7 K/mm3 (0.0-0.8) 10/04/17 05:49 Eosinophils # (Manual) 0.1 K/mm3 (0.0-0.4) 10/04/17 05:49 Basophils # (Manual) 0.0 K/mm3 (0.0-0.1) 10/04/17 05:49 Metamyelocytes # 0.0 K/mm3 10/04/17 05:49 Myelocytes # 0.0 K/mm3 10/04/17 05:49 Promyelocytes # 0.0 K/mm3 10/04/17 05:49 Blast Cells # 0.0 K/mm3 10/04/17 05:49 WBC Morphology Not Reportable 10/04/17 05:49 Hypersegmented Neuts Not Reportable 10/04/17 05:49 Hyposegmented Neuts Not Reportable 10/04/17 05:49 Hypogranular Neuts Not Reportable 10/04/17 05:49 Smudge Cells Not Reportable 10/04/17 05:49 Toxic Granulation Not Reportable 10/04/17 05:49 Toxic Vacuolation Not Reportable 10/04/17 05:49 Dohle Bodies Not Reportable 10/04/17 05:49 Pelger-Huet Anomaly Not Reportable 10/04/17 05:49 Diaz Rods Not Reportable 10/04/17 05:49 Platelet Estimate Appears normal 10/04/17 05:49 Clumped Platelets Not Reportable 10/04/17 05:49 Plt Clumps, EDTA Not Reportable 10/04/17 05:49 Large Platelets Not Reportable 10/04/17 05:49 Giant Platelets Not Reportable 10/04/17 05:49 Platelet Satelliting Not Reportable 10/04/17 05:49 Plt Morphology Comment Not Reportable 10/04/17 05:49 RBC Morphology Not Reportable 10/04/17 05:49 Dimorphic RBCs Not Reportable 10/04/17 05:49 Polychromasia Few 10/04/17 05:49 Hypochromasia Not Reportable 10/04/17 05:49 Poikilocytosis Not Reportable 10/04/17 05:49 Anisocytosis 1+ 10/04/17 05:49 Microcytosis Not Reportable 10/04/17 05:49 Macrocytosis Not Reportable 10/04/17 05:49 Spherocytes Not Reportable 10/04/17 05:49 Pappenheimer Bodies Not Reportable 10/04/17 05:49 Sickle Cells Not Reportable 10/04/17 05:49 Target Cells Not Reportable 10/04/17 05:49 Tear Drop Cells Not Reportable 10/04/17 05:49 Ovalocytes Not Reportable 10/04/17 05:49 Helmet Cells Not Reportable 10/04/17 05:49 Guzmán-Sigel Bodies Not Reportable 10/04/17 05:49 [place] Rings Not Reportable 10/04/17 05:49 [place] Cells Not Reportable 10/04/17 05:49 Bite Cells Not Reportable 10/04/17 05:49 Crenated Cell Not Reportable 10/04/17 05:49 Elliptocytes Not Reportable 10/04/17 05:49 Acanthocytes (Spur) Not Reportable 10/04/17 05:49 Rouleaux Not Reportable 10/04/17 05:49 Hemoglobin C Crystals Not Reportable 10/04/17 05:49 Schistocytes Not Reportable 10/04/17 05:49 Malaria parasites Not Reportable 10/04/17 05:49 Dash Bodies Not Reportable 10/04/17 05:49 Hem Pathologist Commnt No 10/04/17 05:49 POC ABG pH 7.459 (7.35-7.45) H 09/23/17 15:04 POC ABG pCO2 34.8 (35-45) L 09/23/17 15:04 POC ABG pO2 54 (80-105) L 09/23/17 15:04 POC ABG HCO3 24.7 09/23/17 15:04 POC ABG Total CO2 26 09/23/17 15:04 POC ABG O2 Sat 89 09/23/17 15:04 POC ABG Base Excess 1 09/23/17 15:04 FiO2 21 % 09/23/17 15:04 Sodium 132 mmol/L (137-145) L 10/05/17 05:34 Potassium 4.3 mmol/L (3.6-5.0) 10/05/17 05:34 Chloride 92.7 mmol/L (98-107) L 10/05/17 05:34 Carbon Dioxide 23 mmol/L (22-30) 10/05/17 05:34 Anion Gap 21 mmol/L 10/05/17 05:34 BUN 36 mg/dL (9-20) H 10/05/17 05:34 Creatinine 3.7 mg/dL (0.8-1.5) H 10/05/17 05:34 Estimated GFR 22 ml/min 10/05/17 05:34 BUN/Creatinine Ratio 10 % 10/05/17 05:34 Glucose 91 mg/dL (75-100) 10/05/17 05:34 POC Glucose 135 (70-105) H 10/04/17 20:44 Osmolality 299 Mosm/kg 09/30/17 05:21 Calcium 7.8 mg/dL (8.4-10.2) L 10/05/17 05:34 Phosphorus 3.30 mg/dL (2.5-4.5) 09/30/17 05:21 Magnesium 1.70 mg/dL (1.7-2.3) 09/26/17 05:35 Total Creatine Kinase 170 units/L (55-170) 09/23/17 04:10 CK-MB (CK-2) 1.4 ng/mL (0.0-4.0) 09/23/17 04:10 CK-MB (CK-2) Rel Index 0.8 (0-4) 09/23/17 04:10 Troponin T 0.287 ng/mL (0.00-0.029) H* 09/23/17 04:10 C-Reactive Protein 7.60 mg/dL (0.00-1.30) H 10/01/17 20:41 NT-Pro-B Natriuret Pep 5093 pg/mL (0-450) H 09/22/17 21:31 Triglycerides 226 mg/dL (2-149) H 09/22/17 21:31 Cholesterol 235 mg/dL (50-199) H 09/22/17 21:31 LDL Cholesterol Direct 164 mg/dL (50-130) H 09/22/17 21:31 HDL Cholesterol 26 mg/dL (40-59) L 09/22/17 21:31 Cholesterol/HDL Ratio 9.03 % 09/22/17 21:31 Urine Eosinophils None seen (None Seen) 09/29/17 Unknown Vancomycin Trough 36.3 ug/mL (5.0-20.0) H 09/28/17 07:00 Hepatitis A IgM Ab Non-reactive (NonReactive) 10/02/17 17:35 Hep Bs Antigen Non-reactive (Negative) 10/02/17 17:35 Hep B Core IgM Ab Non-reactive (NonReactive) 10/02/17 17:35 Hepatitis C Antibody Non-reactive (NonReactive) 10/02/17 17:35 HIV-1 RNA PCR copies/ml TNR 09/27/17 21:18 HIV-1 RNA (PCR) log TNR 09/27/17 21:18 HIV 1&2 Antibody Rapid Non react (Non React) 09/27/17 21:18 HIV P24 Antigen Non react (Non React) 09/27/17 21:18 Miscellaneous Test Flexitest 1 H 09/27/17 21:19
--- NOTE | 2017-10-05 11:53 | Progress Note ---
Assessment and Plan Assessment: 1) Sepsis: resolved. Etiology most likely bilateral pneumonia. -blood cultures 09/22 ngtd -CRP = 34.90 --> 7.6 -Procal 6.7 -Viral hepatitis panel negative -HIV non reactive 2) Bilateral pneumonia: ? post-influenza pneumonia ? CAP ?HAP on top of CHF exacerbation -s/p tamiflu x 5 days 3) CHF exaceration 4) Hyponatremia 5) DM-uncontrolled 6) Acute respiratory failure 7)LEÓN: resolving -now on HD Plan: -follow up Legionella urine antigen, Streptococcus pneumoniae urine antigen - pending -continue zyvox 600 q 12 hrs day 7 of 10 and levaquin, day 8 of 10 renally dosed -continue to monitor creatinine -metal riveter following Thank you for the consult DWAINE Almonte for Dr. Ondina Arndt MD Infectious Diseases Specialist [facility] ([facility]) M [phone] O [phone] Subjective Date of service: 10/05/17 Principal diagnosis: Acute Hypoxemic Resp Failure; Bilateral Pulmonary Infiltrates; HFrEF Interval history: I want to stop all my medications except for the antibiotics, no fever Microbiology: Blood cultures: 09/22 ngtd 09/10 negative Urine cultures: Respiratory cultures: Current Antimicrobials: Levaquin 09/28 zyvox 09/29 Previous Antimicrobials: Zosyn 09/23 Vanco 09/23 Tamiflu 09/27 Objective - Exam Narrative Exam: General appearance: Alert in NAD, conversant Eyes: anicteric sclerae, moist conjunctivae; no lid-lag; PERRLA HENT: Atraumatic; oropharynx clear with moist mucous membranes and no mucosal ulcerations/no oral thrush; Neck: Trachea midline; supple, no thyromegaly or lymphadenopathy Lungs: diminish in bilateral lung bases, SOB CV: RRR, no murmurs Abdomen: Soft, non-tender; +BS x 4 Extremities: No peripheral edema or extremity lymphadenopathy Skin: Normal temperature, turgor and texture; no rash, ulcers or subcutaneous nodules Psych: Appropriate affect, cooperative Neuro: alert and oriented x 3. Moving all extermities Lines: No CVL / PICC - Constitutional Vitals: Vital Signs Temp Pulse Resp BP Pulse Ox 97.7 F 107 H 19 117/81 95 10/05/17 07:30 10/05/17 10:00 10/05/17 10:00 10/05/17 07:30 10/05/17 07:30 Temperature -Last 24 Hours Temperature 97.7 F Temperature 97.9 F Temperature 98.7 F Temperature 98.5 F Temperature 97.6 F - Labs CBC & Chem 7: 10/05/17 05:34 10/05/17 05:34 Labs: Abnormal lab results 10/04/17 10/04/17 10/04/17 Range/Units 12:01 17:35 20:44 RBC (3.65-5.03) M/mm3 MCH (28-32) pg RDW (13.2-15.2) % [place] % (Auto) (0.0-7.3) % [place] # (0.0-0.8) K/mm3 Sodium (137-145) mmol/L Chloride (98-107) mmol/L BUN (9-20) mg/dL Creatinine (0.8-1.5) mg/dL POC Glucose 140 H 143 H 135 H (70-105) Calcium (8.4-10.2) mg/dL 10/05/17 10/05/17 Range/Units 05:34 05:34 RBC 5.17 H (3.65-5.03) M/mm3 MCH 27 L (28-32) pg RDW 15.5 H (13.2-15.2) % [place] % (Auto) 13.6 H (0.0-7.3) % [place] # 0.9 H (0.0-0.8) K/mm3 Sodium 132 L (137-145) mmol/L Chloride 92.7 L (98-107) mmol/L BUN 36 H (9-20) mg/dL Creatinine 3.7 H (0.8-1.5) mg/dL POC Glucose (70-105) Calcium 7.8 L (8.4-10.2) mg/dL
--- NOTE | 2017-10-05 12:28 | Progress Note ---
Assessment and Plan - Patient Problems (1) Acute renal failure (ARF) Current Visit: Yes Status: Acute Plan to address problem: Hemodialysis today for UF Assess dialysis needs daily Avoid Nephrotoxic agents Renally dose medications Obtain daily weights Monitor intake and output Renal ultrasound reviewed-No Hydronephrosis or mass. (2) Bilateral pneumonia Current Visit: Yes Status: Acute Qualifiers: Pneumonia type: due to unspecified organism Lung location: unspecified part of lung Qualified Code(s): J18.9 - Pneumonia, unspecified organism Plan to address problem: Patient is on IV Levaquin and Zyvox (3) Systolic heart failure Current Visit: Yes Status: Acute Plan to address problem: Was on Milronone drip as per Cardiology UF with HD (4) Diabetes mellitus type 2, insulin dependent Current Visit: No Status: Acute Plan to address problem: Insulin as per Primary team (5) Hyponatremia Current Visit: Yes Status: Acute Plan to address problem: Fluid restriction of 750 ml per No salt tablets due to CHF (6) Hypertension Current Visit: Yes Status: Acute Plan to address problem: Blood pressures are stable. Continue on Coreg. Subjective Date of service: 10/05/17 Principal diagnosis: Acute Hypoxemic Resp Failure; Bilateral Pulmonary Infiltrates; HFrEF Interval history: Patient seen lying in bed on venturi mask. Awake and alert. States has decreased vision in right eye and so has decided to stop all his oral medication. Objective - Vital Signs Vital signs: Vital Signs - 12hr 10/05/17 10/05/17 10/05/17 04:58 07:30 10:00 Temperature 97.9 F 97.7 F Pulse Rate 107 H 107 H Pulse Rate [ 107 H Apical] Respiratory 20 20 19 Rate Blood Pressure 116/84 Blood Pressure 117/81 [Left] O2 Sat by Pulse 100 95 Oximetry - General Appearance General appearance: well-developed, appears stated age EENT: ATNC, PERRL, hearing intact, vision intact Neck: no JVD, supple Respiratory: Present: Decreased Breath Sounds Cardiology: tachycardia, S1S2 Gastrointestinal: normoactive bowel sounds Integumentary: warm and dry Neurologic: alert and oriented x3 - Lab 10/05/17 05:34 10/05/17 05:34 Most recent lab results Calcium 7.8 mg/dL (8.4-10.2) L 10/05/17 05:34 Phosphorus 3.30 mg/dL (2.5-4.5) 09/30/17 05:21 Magnesium 1.70 mg/dL (1.7-2.3) 09/26/17 05:35
--- NOTE | 2017-10-05 16:17 | Progress Note ---
Assessment and Plan Pneumonia Chronic systolic heart failure Acute renal failure initiated on dialysis Cardiomyopathy, etiology unclear EF 10-15% on echocardiogram. Diabetes Hypertension Hyperlipidemia Recommend: Neurology evaluation for visual defect. Subjective Date of service: 10/05/17 Principal diagnosis: Acute Hypoxemic Resp Failure; Bilateral Pulmonary Infiltrates; HFrEF Interval history: Patient complains of right visual field defect. He denies chest pain. No distress noted. Objective Vital Signs Temp Pulse Pulse Resp BP BP Pulse Ox 10/05/17 10:00 107 H 19 10/05/17 07:30 97.7 F 107 H 20 117/81 95 10/05/17 04:58 97.9 F 107 H 20 116/84 100 10/04/17 23:54 98.7 F 107 H 18 114/82 100 10/04/17 22:00 107 H 10/04/17 19:28 98.5 F 20 123/79 10/04/17 17:24 114 H 20 133/91 92 10/04/17 17:17 114 H 133/91 - Physical Examination General: No Apparent Distress HEENT: Positive: PERRL Cardiac: Positive: Tachycardia Neuro: Positive: Grossly Intact Extremities: Absent: edema - Labs and Meds CBC 10/05/17 Range/Units 05:34 WBC 6.5 (4.5-11.0) K/mm3 RBC 5.17 H (3.65-5.03) M/mm3 Hgb 14.1 D (11.8-15.2) gm/dl Hct 43.8 D (35.5-45.6) % Plt Count 331 (140-440) K/mm3 Lymph # 1.3 (1.2-5.4) K/mm3 Harris # 0.9 H (0.0-0.8) K/mm3 Eos # 0.1 (0.0-0.4) K/mm3 Baso # 0.1 (0.0-0.1) K/mm3 Comprehensive Metabolic Panel 10/05/17 Range/Units 05:34 Sodium 132 L (137-145) mmol/L Potassium 4.3 (3.6-5.0) mmol/L Chloride 92.7 L (98-107) mmol/L Carbon Dioxide 23 (22-30) mmol/L BUN 36 H (9-20) mg/dL Creatinine 3.7 H (0.8-1.5) mg/dL Glucose 91 (75-100) mg/dL Calcium 7.8 L (8.4-10.2) mg/dL - Imaging and Cardiology EKG: image reviewed
[2017-10-05] MEDS ORDERED: NACL 0.9 (PRIMING MACHINE ONLY DIALYSIS) MC ONE (17:34)
[2017-10-05] MEDS: HEPARIN IV PRN (19:10)
--- NOTE | 2017-10-05 21:36 | Consultation ---
History of Present Illness Consult date: 10/05/17 Requesting physician: TANYA JAMES Reason for Consult: right field cut, speech change Chief complaint: right field cut, hard to think of words and say them History of present illness: This 42-year-old right-handed -German male has been admitted for pneumonia he says several weeks ago. About 2 weeks ago he noticed a right visual field cut and difficulty getting the words out and thinking of words. These symptoms have not changed. He has had no weakness or numbness or tingling or headache. He is not aware, when asked, that he has cardiomyopathy. CT scan shows left large occipital old appearing infarct and a left subcortical lacunar infarct versus enlarged vascular space and other white matter disease. Past History Past Medical History: diabetes, heart failure, hypertension Past Surgical History: hernia repair Social history: smoking (smoked 0.5 PPD until 08/21/2017), alcohol abuse ( states he has never had alcohol because of alcoholism in his family and no illicit drugs. 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 Single, 9 children, 3 grandchildren) Family history: no significant family history, CAD (2 paternal uncles and a paternal aunt and his paternal grandfather), hypertension (on the paternal side) , other (no history of strokes or epilepsy) Medications and Allergies Allergies Allergy/AdvReac Type Severity Reaction Status Date / Time No Known Allergies Allergy Verified 09/22/17 18:50 Home Medications Medication Instructions Recorded Confirmed Last Taken Type Furosemide [Lasix] 20 mg PO QDAY #60 tablet 03/09/16 09/22/17 09/11/17 17:50 Rx 20 mg Acetaminophen/Dp-Hydramine 1 each PO PRN 09/12/17 09/22/17 09/11/17 06:00 History [Jayden's Pm Powder Packet] 1 Carvedilol [Coreg] 25 mg PO DAILY 09/13/17 09/22/17 09/08/17 21:00 History 25 Insulin Aspart Protam & Aspart 0 units SQ QAM 09/13/17 09/22/17 09/07/17 08:00 History [NovoLOG Mix 70-30 Flexpen] Levemir 20 units SUB-Q HS 09/13/17 09/22/17 09/07/17 22:00 History Lisinopril [Zestril] 40 mg PO HS 09/13/17 09/22/17 09/08/17 21:00 History amLODIPine [Norvasc] 10 mg PO DAILY 09/13/17 09/22/17 09/08/17 21:00 History Active Meds: Active Medications Acetaminophen (Tylenol) 650 mg PO Q4H PRN PRN Reason: Pain MILD(1-3)/Fever >100.5/[place] Last Admin: 10/02/17 21:59 Dose: 650 mg Albuterol (Proventil) 2.5 mg IH Q4HRT PRN PRN Reason: Shortness Of Breath Last Admin: 09/28/17 08:40 Dose: 2.5 mg Aspirin (Baby Aspirin) 81 mg PO QDAY PENDING SALE TO [facility] Last Admin: 10/05/17 09:52 Dose: Not Given Bisacodyl (Dulcolax) 10 mg OH QDAY PRN PRN Reason: Constipation unrelieved by MOM Calcium Carbonate/Glycine (Tums) 500 mg PO Q4H PRN PRN Reason: Indigestion Last Admin: 10/01/17 17:35 Dose: 500 mg Dextrose (D50w (25gm) Syringe) 50 ml IV PRN PRN PRN Reason: Hypoglycemia Enoxaparin Sodium (Lovenox) 30 mg SUB-Q QDAY PENDING SALE TO [facility] Last Admin: 10/05/17 09:51 Dose: 30 mg Heparin Sodium (Porcine) (Heparin) 5,000 unit IV ILDEFONSO PRN PRN Reason: hemodialysis Last Admin: 10/05/17 19:10 Dose: 5,000 unit Hydralazine HCl (Apresoline) 25 mg PO Q8HR PENDING SALE TO [facility] Sodium Chloride (Nacl 0.9%) 100 mls @ 999 mls/hr IV ILDEFONSO PRN PRN Reason: Hypotension Insulin Aspart (Novolog) 0 units SUB-Q ACHS PENDING SALE TO [facility] PRN Reason: Protocol Last Admin: 10/05/17 16:47 Dose: Not Given Insulin Detemir (Levemir) 20 units SUB-Q QHS PENDING SALE TO [facility] Last Admin: 10/04/17 22:01 Dose: 20 units Levofloxacin (Levaquin) 500 mg PO Q48HR PENDING SALE TO [facility] Last Admin: 10/04/17 10:28 Dose: 500 mg Linezolid (Zyvox) 600 mg PO Q12HR AYALA PRN Reason: Protocol Last Admin: 10/05/17 09:50 Dose: 600 mg Lorazepam (Ativan) 1 mg IV Q4H PRN PRN Reason: Agitation Last Admin: 09/30/17 21:11 Dose: 1 mg Metoprolol Tartrate (Lopressor) 25 mg PO Q6H PENDING SALE TO [facility] Last Admin: 10/05/17 16:46 Dose: Not Given Ondansetron HCl (Zofran) 4 mg IV Q8H PRN PRN Reason: N/V unrelieved by Reglan Pantoprazole Sodium (Protonix) 40 mg PO QDAY PENDING SALE TO [facility] Last Admin: 10/05/17 09:52 Dose: Not Given Zolpidem Tartrate (Ambien) 5 mg PO QHS PRN PRN Reason: Sleep Last Admin: 10/04/17 22:08 Dose: 5 mg Review of Systems All systems: negative Constitutional: other (occasional headache if hungry, some snoring but no pauses noted, does nap and those off at times but not sleepy driving and less a long drive. No problems with memory and no paresthesias.) Physical Examination - Vital Signs Vital Signs: Vital Signs Temp Pulse Resp BP Pulse Ox 99.1 F 105 H 20 143/103 93 09/22/17 18:50 09/22/17 18:50 09/22/17 18:50 09/22/17 18:50 09/22/17 18:50 - Physical Exam Narrative exam: Vital signs: 98.3F orally, pulse 116/m, respirations 18 per minute, blood pressure 124/87 BMI 35.3. Gen. appearance: Well-developed but obese mid 40s Afro-German male wearing oxygen mask but otherwise in no acute distress. HEENT: Atraumatic, normocephalic, no bruits. Superficial temporal artery pulses 2+ without soreness. Neck: Supple, no bruits. Heart: Rapid rate but no murmur or extra sounds. Extremities: 2+ dorsalis pedis pulses, no clubbing cyanosis or edema. 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 Gets one of 3 objects at 3 minutes. Serial sevens slow but intact. Spells world backwards correctly, abstracts well, no right-left confusion, names well. Some halting of spontaneous speech at times with some word finding difficulty at times. Cranial nerves: Right homonymous field cut, no papilledema, spontaneous venous pulsations are present, PERRLA, EOMs without nystagmus or diplopia, light touch and pinprick are intact in the face, no facial weakness, [place] is midline, palate rises symmetrically in the midline to phonation and gags are positive bilaterally. Shoulder shrug is intact bilaterally and tongue protrudes in midline. Cerebellar: Finger to nose slightly dysmetric at the endpoints bilaterally, heel -to-martines is intact bilaterally. Sensory exam: Light touch, pinprick, vibrations and double simultaneous stimulation are intact. 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 No atrophy or fasciculations are noted visually. Motor exam lower extremities: No leg lag, quadriceps, anterior tibials and gastrocnemius are 5 bilaterally. Slightly slow rapid alternating movements bilaterally. Tone is normal. No atrophy or fasciculations are noted visually. Reflexes: Palmomental, snout and jaw jerk are negative. Triceps, biceps and brachioradialis are all trace to 1 on the right and trace the left. Silva's is negative bilaterally. Knee jerks and ankle jerks are 0 bilaterally even with reinforcement and without clonus. Toes are upgoing on the right and downgoing on the left to Babinski testing. - Constitutional General appearance: comfortable - EENT EENT: Present: PERRL - Respiratory Respiratory: Present: lungs clear, normal breath sounds, no respiratory distress - Cardiovascular Cardiovascular: Present: regular rate, normal S1, normal S2, no murmurs Extremities: Present: no peripheral edema bilatateraly, no ischemia or petechiae - Gastrointestinal Gastrointestinal: Present: normoactive bowel sounds, soft, non-tender - Integumentary Integumentary: Present: normal - Neurologic Detailed motor examination: full strength in all mauricio Motor examination - right side: 01/09: biceps, triceps, wrist flexion, wrist extension, sliver lap machine tender, hip flexors, knee extensors, dorsiflexion, toe extension (EHL) , plantarflexion Motor examination - left side: 01/09: biceps, triceps, wrist flexion, wrist extension, sliver lap machine tender, hip flexors, knee extensors, dorsiflexion, toe extension (EHL) , plantarflexion - Musculoskeletal Musculoskeletal: Present: no pain, normal range of motion - Psychiatric Psychiatric: Present: mood/affect appropriate Results - Laboratory Findings CBC and BMP: 10/05/17 05:34 10/05/17 05:34 Abnormal Lab Findings: Abnormal Labs 09/22/17 09/22/17 09/22/17 21:30 21:31 21:31 WBC RBC Hgb Hct MCH RDW 15.3 H Lymph % (Auto) [place] % (Auto) 9.6 H Eos % (Auto) Lymph # [place] # 0.9 H Seg Neutrophils % 72.0 H Seg Neuts % (Manual) Monocytes % (Manual) Seg Neutrophils # POC ABG pH POC ABG pCO2 POC ABG pO2 Sodium Chloride Carbon Dioxide BUN Creatinine Glucose POC Glucose Calcium Total Creatine Kinase 371 H Troponin T 0.260 H* C-Reactive Protein NT-Pro-B Natriuret Pep 5093 H Triglycerides 226 H Cholesterol 235 H LDL Cholesterol Direct 164 H HDL Cholesterol 26 L Vancomycin Trough Miscellaneous Test 09/22/17 09/22/17 09/23/17 22:54 22:54 04:00 WBC RBC Hgb Hct MCH RDW Lymph % (Auto) [place] % (Auto) 11.9 H Eos % (Auto) Lymph # [place] # Seg Neutrophils % Seg Neuts % (Manual) Monocytes % (Manual) Seg Neutrophils # POC ABG pH POC ABG pCO2 POC ABG pO2 Sodium 129 L Chloride 91.6 L Carbon Dioxide BUN Creatinine 0.7 L Glucose 256 H POC Glucose Calcium 7.9 L Total Creatine Kinase 211 H Troponin T 0.344 H* D C-Reactive Protein NT-Pro-B Natriuret Pep Triglycerides Cholesterol LDL Cholesterol Direct HDL Cholesterol Vancomycin Trough Miscellaneous Test 09/23/17 09/23/17 09/23/17 04:00 04:10 09:09 WBC RBC Hgb Hct MCH RDW Lymph % (Auto) [place] % (Auto) Eos % (Auto) Lymph # [place] # Seg Neutrophils % Seg Neuts % (Manual) Monocytes % (Manual) Seg Neutrophils # POC ABG pH POC ABG pCO2 POC ABG pO2 Sodium 136 L D Chloride 95.3 L Carbon Dioxide BUN Creatinine Glucose 181 H POC Glucose 166 H Calcium 7.7 L Total Creatine Kinase Troponin T 0.287 H* C-Reactive Protein NT-Pro-B Natriuret Pep Triglycerides Cholesterol LDL Cholesterol Direct HDL Cholesterol Vancomycin Trough Miscellaneous Test 09/23/17 09/23/17 09/23/17 11:40 13:19 15:04 WBC RBC Hgb Hct MCH RDW Lymph % (Auto) [place] % (Auto) Eos % (Auto) Lymph # [place] # Seg Neutrophils % Seg Neuts % (Manual) Monocytes % (Manual) Seg Neutrophils # POC ABG pH 7.459 H POC ABG pCO2 34.8 L POC ABG pO2 54 L Sodium Chloride Carbon Dioxide BUN Creatinine Glucose POC Glucose 221 H 267 H Calcium Total Creatine Kinase Troponin T C-Reactive Protein NT-Pro-B Natriuret Pep Triglycerides Cholesterol LDL Cholesterol Direct HDL Cholesterol Vancomycin Trough Miscellaneous Test 09/23/17 09/23/17 09/24/17 15:57 22:07 04:40 WBC RBC Hgb Hct MCH RDW Lymph % (Auto) [place] % (Auto) 11.4 H Eos % (Auto) Lymph # [place] # Seg Neutrophils % Seg Neuts % (Manual) Monocytes % (Manual) Seg Neutrophils # POC ABG pH POC ABG pCO2 POC ABG pO2 Sodium Chloride Carbon Dioxide BUN Creatinine Glucose POC Glucose 281 H 166 H Calcium Total Creatine Kinase Troponin T C-Reactive Protein NT-Pro-B Natriuret Pep Triglycerides Cholesterol LDL Cholesterol Direct HDL Cholesterol Vancomycin Trough Miscellaneous Test 09/24/17 09/24/17 09/24/17 04:40 08:42 12:17 WBC RBC Hgb Hct MCH RDW Lymph % (Auto) [place] % (Auto) Eos % (Auto) Lymph # [place] # Seg Neutrophils % Seg Neuts % (Manual) Monocytes % (Manual) Seg Neutrophils # POC ABG pH POC ABG pCO2 POC ABG pO2 Sodium 133 L Chloride 95.6 L Carbon Dioxide BUN Creatinine 0.7 L Glucose 251 H POC Glucose 173 H 209 H Calcium 7.8 L Total Creatine Kinase Troponin T C-Reactive Protein NT-Pro-B Natriuret Pep Triglycerides Cholesterol LDL Cholesterol Direct HDL Cholesterol Vancomycin Trough Miscellaneous Test 09/24/17 09/24/17 09/25/17 16:13 21:21 12:44 WBC RBC Hgb Hct MCH RDW Lymph % (Auto) [place] % (Auto) Eos % (Auto) Lymph # [place] # Seg Neutrophils % Seg Neuts % (Manual) Monocytes % (Manual) Seg Neutrophils # POC ABG pH POC ABG pCO2 POC ABG pO2 Sodium Chloride Carbon Dioxide BUN Creatinine Glucose POC Glucose 248 H 152 H 185 H Calcium Total Creatine Kinase Troponin T C-Reactive Protein NT-Pro-B Natriuret Pep Triglycerides Cholesterol LDL Cholesterol Direct HDL Cholesterol Vancomycin Trough Miscellaneous Test 09/25/17 09/25/17 09/26/17 17:18 23:10 05:35 WBC 15.6 H RBC Hgb Hct MCH RDW Lymph % (Auto) [place] % (Auto) Eos % (Auto) Lymph # [place] # Seg Neutrophils % 78.5 H Seg Neuts % (Manual) Monocytes % (Manual) Seg Neutrophils # 12.2 H POC ABG pH POC ABG pCO2 POC ABG pO2 Sodium Chloride Carbon Dioxide BUN Creatinine Glucose POC Glucose 186 H 187 H Calcium Total Creatine Kinase Troponin T C-Reactive Protein NT-Pro-B Natriuret Pep Triglycerides Cholesterol LDL Cholesterol Direct HDL Cholesterol Vancomycin Trough Miscellaneous Test 09/26/17 09/26/17 09/26/17 05:35 09:02 12:20 WBC RBC Hgb Hct MCH RDW Lymph % (Auto) [place] % (Auto) Eos % (Auto) Lymph # [place] # Seg Neutrophils % Seg Neuts % (Manual) Monocytes % (Manual) Seg Neutrophils # POC ABG pH POC ABG pCO2 POC ABG pO2 Sodium 133 L Chloride 95.2 L Carbon Dioxide BUN Creatinine 0.7 L Glucose 161 H POC Glucose 131 H 199 H Calcium 8.3 L Total Creatine Kinase Troponin T C-Reactive Protein NT-Pro-B Natriuret Pep Triglycerides Cholesterol LDL Cholesterol Direct HDL Cholesterol Vancomycin Trough Miscellaneous Test 09/26/17 09/26/17 09/27/17 16:39 21:45 07:24 WBC RBC Hgb Hct MCH RDW Lymph % (Auto) [place] % (Auto) Eos % (Auto) Lymph # [place] # Seg Neutrophils % Seg Neuts % (Manual) Monocytes % (Manual) Seg Neutrophils # POC ABG pH POC ABG pCO2 POC ABG pO2 Sodium Chloride Carbon Dioxide BUN Creatinine Glucose POC Glucose 209 H 194 H 210 H Calcium Total Creatine Kinase Troponin T C-Reactive Protein NT-Pro-B Natriuret Pep Triglycerides Cholesterol LDL Cholesterol Direct HDL Cholesterol Vancomycin Trough Miscellaneous Test 09/27/17 09/27/17 09/27/17 09:20 09:20 11:50 WBC RBC Hgb 11.0 L Hct MCH RDW Lymph % (Auto) [place] % (Auto) Eos % (Auto) Lymph # [place] # Seg Neutrophils % 77.2 H Seg Neuts % (Manual) Monocytes % (Manual) Seg Neutrophils # POC ABG pH POC ABG pCO2 POC ABG pO2 Sodium 134 L Chloride 96.1 L Carbon Dioxide BUN 21 H Creatinine Glucose 139 H POC Glucose Calcium 8.0 L Total Creatine Kinase Troponin T C-Reactive Protein NT-Pro-B Natriuret Pep Triglycerides Cholesterol LDL Cholesterol Direct HDL Cholesterol Vancomycin Trough 46.8 H Miscellaneous Test 09/27/17 09/27/17 09/27/17 11:50 12:18 17:00 WBC RBC Hgb 10.7 L Hct 32.1 L D MCH RDW Lymph % (Auto) [place] % (Auto) Eos % (Auto) Lymph # [place] # Seg Neutrophils % 80.6 H Seg Neuts % (Manual) Monocytes % (Manual) Seg Neutrophils # POC ABG pH POC ABG pCO2 POC ABG pO2 Sodium Chloride Carbon Dioxide BUN Creatinine Glucose POC Glucose 274 H 169 H Calcium Total Creatine Kinase Troponin T C-Reactive Protein NT-Pro-B Natriuret Pep Triglycerides Cholesterol LDL Cholesterol Direct HDL Cholesterol Vancomycin Trough Miscellaneous Test 09/27/17 09/27/17 09/27/17 21:18 21:19 23:28 WBC RBC Hgb Hct MCH RDW Lymph % (Auto) [place] % (Auto) Eos % (Auto) Lymph # [place] # Seg Neutrophils % Seg Neuts % (Manual) Monocytes % (Manual) Seg Neutrophils # POC ABG pH POC ABG pCO2 POC ABG pO2 Sodium Chloride Carbon Dioxide BUN Creatinine Glucose POC Glucose 251 H Calcium Total Creatine Kinase Troponin T C-Reactive Protein 34.90 H NT-Pro-B Natriuret Pep Triglycerides Cholesterol LDL Cholesterol Direct HDL Cholesterol Vancomycin Trough Miscellaneous Test Flexitest 1 H 09/27/17 09/28/17 09/28/17 23:49 07:00 07:00 WBC RBC 3.44 L Hgb 9.9 L Hct 29.6 L MCH RDW Lymph % (Auto) [place] % (Auto) Eos % (Auto) Lymph # 1.0 L [place] # Seg Neutrophils % 76.2 H Seg Neuts % (Manual) Monocytes % (Manual) Seg Neutrophils # POC ABG pH POC ABG pCO2 POC ABG pO2 Sodium 128 L Chloride 92.1 L Carbon Dioxide 20 L BUN 40 H Creatinine 3.1 H D Glucose 199 H POC Glucose 233 H Calcium 7.5 L Total Creatine Kinase Troponin T C-Reactive Protein NT-Pro-B Natriuret Pep Triglycerides Cholesterol LDL Cholesterol Direct HDL Cholesterol Vancomycin Trough Miscellaneous Test 09/28/17 09/28/17 09/28/17 07:00 08:03 13:31 WBC RBC Hgb Hct MCH RDW Lymph % (Auto) [place] % (Auto) Eos % (Auto) Lymph # [place] # Seg Neutrophils % Seg Neuts % (Manual) Monocytes % (Manual) Seg Neutrophils # POC ABG pH POC ABG pCO2 POC ABG pO2 Sodium Chloride Carbon Dioxide BUN Creatinine Glucose POC Glucose 165 H 237 H Calcium Total Creatine Kinase Troponin T C-Reactive Protein NT-Pro-B Natriuret Pep Triglycerides Cholesterol LDL Cholesterol Direct HDL Cholesterol Vancomycin Trough 36.3 H Miscellaneous Test 09/28/17 09/28/17 09/29/17 16:20 22:12 05:20 WBC RBC Hgb 11.4 L Hct 34.5 L MCH RDW Lymph % (Auto) 10.5 L [place] % (Auto) 9.1 H Eos % (Auto) Lymph # 0.5 L [place] # Seg Neutrophils % 75.8 H Seg Neuts % (Manual) Monocytes % (Manual) Seg Neutrophils # POC ABG pH POC ABG pCO2 POC ABG pO2 Sodium Chloride Carbon Dioxide BUN Creatinine Glucose POC Glucose 323 H 164 H Calcium Total Creatine Kinase Troponin T C-Reactive Protein NT-Pro-B Natriuret Pep Triglycerides Cholesterol LDL Cholesterol Direct HDL Cholesterol Vancomycin Trough Miscellaneous Test 09/29/17 09/29/17 09/29/17 05:20 07:53 16:21 WBC RBC Hgb Hct MCH RDW Lymph % (Auto) [place] % (Auto) Eos % (Auto) Lymph # [place] # Seg Neutrophils % Seg Neuts % (Manual) Monocytes % (Manual) Seg Neutrophils # POC ABG pH POC ABG pCO2 POC ABG pO2 Sodium 128 L Chloride 91.6 L Carbon Dioxide 21 L BUN 51 H Creatinine 3.8 H Glucose 161 H POC Glucose 128 H 141 H Calcium Total Creatine Kinase Troponin T C-Reactive Protein NT-Pro-B Natriuret Pep Triglycerides Cholesterol LDL Cholesterol Direct HDL Cholesterol Vancomycin Trough Miscellaneous Test 09/29/17 09/30/17 09/30/17 22:17 05:21 05:21 WBC RBC Hgb 10.3 L Hct 32.1 L MCH 27 L RDW Lymph % (Auto) 11.6 L [place] % (Auto) 9.3 H Eos % (Auto) 4.9 H Lymph # 0.8 L [place] # Seg Neutrophils % 73.6 H Seg Neuts % (Manual) Monocytes % (Manual) Seg Neutrophils # POC ABG pH POC ABG pCO2 POC ABG pO2 Sodium 127 L Chloride 90.9 L Carbon Dioxide BUN 52 H Creatinine 4.5 H Glucose 187 H POC Glucose 158 H Calcium 7.9 L Total Creatine Kinase Troponin T C-Reactive Protein NT-Pro-B Natriuret Pep Triglycerides Cholesterol LDL Cholesterol Direct HDL Cholesterol Vancomycin Trough Miscellaneous Test 09/30/17 09/30/17 09/30/17 07:47 11:55 21:44 WBC RBC Hgb Hct MCH RDW Lymph % (Auto) [place] % (Auto) Eos % (Auto) Lymph # [place] # Seg Neutrophils % Seg Neuts % (Manual) Monocytes % (Manual) Seg Neutrophils # POC ABG pH POC ABG pCO2 POC ABG pO2 Sodium Chloride Carbon Dioxide BUN Creatinine Glucose POC Glucose 137 H 184 H 141 H Calcium Total Creatine Kinase Troponin T C-Reactive Protein NT-Pro-B Natriuret Pep Triglycerides Cholesterol LDL Cholesterol Direct HDL Cholesterol Vancomycin Trough Miscellaneous Test 10/01/17 10/01/17 10/01/17 06:03 06:03 16:37 WBC RBC Hgb 11.3 L Hct 33.6 L MCH RDW Lymph % (Auto) 11.2 L [place] % (Auto) 10.2 H Eos % (Auto) Lymph # 1.1 L [place] # 1.0 H Seg Neutrophils % 74.5 H Seg Neuts % (Manual) Monocytes % (Manual) Seg Neutrophils # POC ABG pH POC ABG pCO2 POC ABG pO2 Sodium 130 L Chloride 92.3 L Carbon Dioxide BUN 53 H Creatinine 4.5 H Glucose POC Glucose 125 H Calcium 8.0 L Total Creatine Kinase Troponin T C-Reactive Protein NT-Pro-B Natriuret Pep Triglycerides Cholesterol LDL Cholesterol Direct HDL Cholesterol Vancomycin Trough Miscellaneous Test 10/01/17 10/01/17 10/02/17 20:41 21:47 06:21 WBC RBC Hgb 11.5 L Hct 34.5 L MCH RDW 15.3 H Lymph % (Auto) [place] % (Auto) 12.4 H Eos % (Auto) Lymph # 0.9 L [place] # Seg Neutrophils % 70.6 H Seg Neuts % (Manual) Monocytes % (Manual) Seg Neutrophils # POC ABG pH POC ABG pCO2 POC ABG pO2 Sodium Chloride Carbon Dioxide BUN Creatinine Glucose POC Glucose 115 H Calcium Total Creatine Kinase Troponin T C-Reactive Protein 7.60 H NT-Pro-B Natriuret Pep Triglycerides Cholesterol LDL Cholesterol Direct HDL Cholesterol Vancomycin Trough Miscellaneous Test 10/02/17 10/02/17 10/02/17 06:21 07:47 21:56 WBC RBC Hgb Hct MCH RDW Lymph % (Auto) [place] % (Auto) Eos % (Auto) Lymph # [place] # Seg Neutrophils % Seg Neuts % (Manual) Monocytes % (Manual) Seg Neutrophils # POC ABG pH POC ABG pCO2 POC ABG pO2 Sodium 133 L Chloride 92.7 L Carbon Dioxide BUN 51 H Creatinine 4.7 H Glucose 113 H POC Glucose 118 H 154 H Calcium 8.0 L Total Creatine Kinase Troponin T C-Reactive Protein NT-Pro-B Natriuret Pep Triglycerides Cholesterol LDL Cholesterol Direct HDL Cholesterol Vancomycin Trough Miscellaneous Test 10/03/17 10/03/17 10/03/17 06:13 06:13 16:50 WBC RBC Hgb 10.7 L Hct 31.9 L MCH RDW 15.6 H Lymph % (Auto) [place] % (Auto) Eos % (Auto) Lymph # [place] # Seg Neutrophils % Seg Neuts % (Manual) Monocytes % (Manual) Seg Neutrophils # POC ABG pH POC ABG pCO2 POC ABG pO2 Sodium 134 L Chloride 95.3 L Carbon Dioxide BUN 32 H Creatinine 3.7 H Glucose POC Glucose 126 H Calcium 7.8 L Total Creatine Kinase Troponin T C-Reactive Protein NT-Pro-B Natriuret Pep Triglycerides Cholesterol LDL Cholesterol Direct HDL Cholesterol Vancomycin Trough Miscellaneous Test 10/04/17 10/04/17 10/04/17 05:49 05:49 12:01 WBC RBC Hgb 10.8 L Hct 32.3 L MCH RDW 15.6 H Lymph % (Auto) [place] % (Auto) Eos % (Auto) Lymph # [place] # Seg Neutrophils % Seg Neuts % (Manual) 72.0 H Monocytes % (Manual) 9.0 H Seg Neutrophils # POC ABG pH POC ABG pCO2 POC ABG pO2 Sodium 133 L Chloride 93.7 L Carbon Dioxide BUN 23 H Creatinine 3.2 H Glucose POC Glucose 140 H Calcium 7.8 L Total Creatine Kinase Troponin T C-Reactive Protein NT-Pro-B Natriuret Pep Triglycerides Cholesterol LDL Cholesterol Direct HDL Cholesterol Vancomycin Trough Miscellaneous Test 10/04/17 10/04/17 10/05/17 17:35 20:44 05:34 WBC RBC 5.17 H Hgb Hct MCH 27 L RDW 15.5 H Lymph % (Auto) [place] % (Auto) 13.6 H Eos % (Auto) Lymph # [place] # 0.9 H Seg Neutrophils % Seg Neuts % (Manual) Monocytes % (Manual) Seg Neutrophils # POC ABG pH POC ABG pCO2 POC ABG pO2 Sodium Chloride Carbon Dioxide BUN Creatinine Glucose POC Glucose 143 H 135 H Calcium Total Creatine Kinase Troponin T C-Reactive Protein NT-Pro-B Natriuret Pep Triglycerides Cholesterol LDL Cholesterol Direct HDL Cholesterol Vancomycin Trough Miscellaneous Test 10/05/17 10/05/17 10/05/17 05:34 12:34 21:29 WBC RBC Hgb Hct MCH RDW Lymph % (Auto) [place] % (Auto) Eos % (Auto) Lymph # [place] # Seg Neutrophils % Seg Neuts % (Manual) Monocytes % (Manual) Seg Neutrophils # POC ABG pH POC ABG pCO2 POC ABG pO2 Sodium 132 L Chloride 92.7 L Carbon Dioxide BUN 36 H Creatinine 3.7 H Glucose POC Glucose 161 H 191 H Calcium 7.8 L Total Creatine Kinase Troponin T C-Reactive Protein NT-Pro-B Natriuret Pep Triglycerides Cholesterol LDL Cholesterol Direct HDL Cholesterol Vancomycin Trough Miscellaneous Test Assessment and Plan Impression: 1. Right homonymous visual field cut 2. Dysphasia 3. Cerebral infarcts, embolic 4. Cardiomyopathy Plan: 1. Brain MRI and head and neck MRAs have been ordered all without contrast because of his kidney function. I told him he may have had an older stroke and a newer one, which his CT scan cannot decipher. 2. Depending on results of MRI and MRAs, may need anticoagulation with warfarin or newer agents, given his cardiomyopathy. 3. Could do echo with bubbles if needed. 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 4. Based on LDL of 164, should be on a statin that perhaps liver function should be repeated since they were elevated earlier this month. Thank you for an interesting consultation on this unfortunate man. 60 minutes spent including counseling.
[2017-10-05] MEDS: APRESOLINE PO SCH (21:39)
[2017-10-05] MEDS: AMBIEN PO PRN (21:40)
[2017-10-05] MEDS: LEVEMIR SUB-Q SCH (21:41)
[2017-10-06] MEDS: LOPRESSOR PO SCH ×4 (04:00→22:12)
[2017-10-06 06:16] LABS: Basophils % (Auto) 0.3 % (0.0-1.8); Eosinophils # (Auto) 0.2 K/mm3 (0.0-0.4); Eosinophils % (Auto) 2.3 % (0.0-4.3); Hematocrit 32.4 % (35.5-45.6); Hemoglobin 10.6 gm/dl (11.8-15.2); Lymphocytes # (Auto) 1.2 K/mm3 (1.2-5.4); Lymphocytes % (Auto) 15.3 % (13.4-35.0); Mean Corpuscular HGB Conc 33 % (32-34); Mean Corpuscular Hemoglobin 28 pg (28-32); Mean Corpuscular Volume 85 fl (84-94); Monocytes # (Auto) 1.2 K/mm3 (0.0-0.8); Monocytes % (Auto) 15.6 % (0.0-7.3); Platelet Count 364 K/mm3 (140-440); Red Blood Count 3.81 M/mm3 (3.65-5.03); Red Cell Distribution Width 15.5 % (13.2-15.2)
[2017-10-06] MEDS: APRESOLINE PO SCH ×3 (06:17→22:12)
[2017-10-06 06:40] LABS: Calcium 7.9 mg/dL (8.4-10.2)
[2017-10-06] MEDS: NOVOLOG SUB-Q SCH ×4 (07:30→22:02)
[2017-10-06] MEDS: BABY ASPIRIN PO SCH (10:16)
[2017-10-06] MEDS: LOVENOX SUB-Q SCH (10:16)
[2017-10-06] MEDS: ZYVOX PO SCH ×2 (10:16→22:04)
[2017-10-06] MEDS: LEVAQUIN PO SCH (10:16)
[2017-10-06] MEDS: PROTONIX PO SCH (10:16)
--- NOTE | 2017-10-06 10:46 | Progress Note ---
Assessment and Plan Assessment and plan: Acute hypoxic respiratory failure -BIPAP as clinically indicated -Etiology secondary to bilateral pneumonia Acute Renal failure -Patient received hemodialysis on 10/02/17 and 10/03/17 -Assess need for HD on daily basis -Avoid Nephrotoxic agents -Renally dose medications -Obtain daily weights -Monitor intake and output -Monitor renal function closely -Renal ultrasound showed no hydronephrosis -Nephrology following Sepsis -Etiology secondary to pneumonia. -follow up Legionella urine antigen, Streptococcus pneumoniae urine antigen -Blood cultures thus far negative. -continue abx per ID Bilateral pneumonia - On IV antibiotics , Levaquin and Zyvox - Pulmonary consult appreciated Cardiomyopathy - EF of 10-15%, systolic dysfunction - continue with CHF medications -Patient previously on milrinone drip per cardiology - Cardiology following - Lexiscan stress test to be done once stable. NSVT -Patient was sent to be run of [id number] -Consider ICD as outpatient per cardiology Acute on chronic systolic heart failure. -Continue aggressive medical therapy with IV milrinone and IV diuresis. Hyponatremia -Fluid restriction of 750ml per day -Follow BMP DM with hyperglycemia - SSI and basal insulin Right homonymous visual field defect -MRI/MRA brain pending. -Neuro please patient may need anticoagulation with warfarin or newer agents, given his cardiomyopathy. -Ophthalmology outpatient follow-up DVT prophylaxis - On lovenox - patient is not stable enough to transfer to [facility]. Disposition. -Continue inpatient management. [phone] , [place] number to arrange for follow-up at the time of discharge. History Interval history: No new issues overnight. Nursing reports, patient refusing his a.m. medications Hospitalist Physical - Constitutional Vitals: Temp Pulse Resp BP Pulse Ox 98.3 F 115 H 18 122/90 97 10/06/17 09:09 10/06/17 09:09 10/06/17 09:09 10/06/17 09:09 10/06/17 09:09 General appearance: Present: no acute distress - EENT Eyes: Present: PERRL, EOM intact ENT: hearing intact, clear oral mucosa, dentition normal - Neck Neck: Present: supple, normal ROM - Respiratory Respiratory effort: normal Respiratory: bilateral: CTA - Cardiovascular Rhythm: regular Heart Sounds: Present: S1 & S2. Absent: gallop, rub - Extremities Extremities: no ischemia, No edema, Full ROM - Abdominal General gastrointestinal: soft, non-tender, non-distended, normal bowel sounds - Integumentary Integumentary: Present: clear, warm, dry - Neurologic Neurologic: CNII-XII intact, moves all extremities Results - Labs CBC & Chem 7: 10/06/17 05:50 10/06/17 05:50 Labs: Laboratory Last Values WBC 7.9 K/mm3 (4.5-11.0) 10/06/17 05:50 RBC 3.81 M/mm3 (3.65-5.03) 10/06/17 05:50 Hgb 10.6 gm/dl (11.8-15.2) L D 10/06/17 05:50 Hct 32.4 % (35.5-45.6) L D 10/06/17 05:50 MCV 85 fl (84-94) 10/06/17 05:50 MCH 28 pg (28-32) 10/06/17 05:50 MCHC 33 % (32-34) 10/06/17 05:50 RDW 15.5 % (13.2-15.2) H 10/06/17 05:50 Plt Count 364 K/mm3 (140-440) 10/06/17 05:50 Lymph % (Auto) 15.3 % (13.4-35.0) 10/06/17 05:50 [place] % (Auto) 15.6 % (0.0-7.3) H 10/06/17 05:50 Eos % (Auto) 2.3 % (0.0-4.3) 10/06/17 05:50 Baso % (Auto) 0.3 % (0.0-1.8) 10/06/17 05:50 Lymph # 1.2 K/mm3 (1.2-5.4) 10/06/17 05:50 [place] # 1.2 K/mm3 (0.0-0.8) H 10/06/17 05:50 Eos # 0.2 K/mm3 (0.0-0.4) 10/06/17 05:50 Baso # 0.0 K/mm3 (0.0-0.1) 10/06/17 05:50 Add Manual Diff Complete 10/04/17 05:49 Total Counted 100 10/04/17 05:49 Seg Neutrophils % 66.5 % (40.0-70.0) 10/06/17 05:50 Seg Neuts % (Manual) 72.0 % (40.0-70.0) H 10/04/17 05:49 Band Neutrophils % 0 % 10/04/17 05:49 Lymphocytes % (Manual) 17.0 % (13.4-35.0) 10/04/17 05:49 Reactive Lymphs % (Man) 0 % 10/04/17 05:49 Monocytes % (Manual) 9.0 % (0.0-7.3) H 10/04/17 05:49 Eosinophils % (Manual) 2.0 % (0.0-4.3) 10/04/17 05:49 Basophils % (Manual) 0 % (0.0-1.8) 10/04/17 05:49 Metamyelocytes % 0 % 10/04/17 05:49 Myelocytes % 0 % 10/04/17 05:49 Promyelocytes % 0 % 10/04/17 05:49 Blast Cells % 0 % 10/04/17 05:49 Nucleated RBC % Not Reportable 10/04/17 05:49 Seg Neutrophils # 5.2 K/mm3 (1.8-7.7) 10/06/17 05:50 Seg Neutrophils # Man 5.3 K/mm3 (1.8-7.7) 10/04/17 05:49 Band Neutrophils # 0.0 K/mm3 10/04/17 05:49 Lymphocytes # (Manual) 1.3 K/mm3 (1.2-5.4) 10/04/17 05:49 Abs React Lymphs (Man) 0.0 K/mm3 10/04/17 05:49 Monocytes # (Manual) 0.7 K/mm3 (0.0-0.8) 10/04/17 05:49 Eosinophils # (Manual) 0.1 K/mm3 (0.0-0.4) 10/04/17 05:49 Basophils # (Manual) 0.0 K/mm3 (0.0-0.1) 10/04/17 05:49 Metamyelocytes # 0.0 K/mm3 10/04/17 05:49 Myelocytes # 0.0 K/mm3 10/04/17 05:49 Promyelocytes # 0.0 K/mm3 10/04/17 05:49 Blast Cells # 0.0 K/mm3 10/04/17 05:49 WBC Morphology Not Reportable 10/04/17 05:49 Hypersegmented Neuts Not Reportable 10/04/17 05:49 Hyposegmented Neuts Not Reportable 10/04/17 05:49 Hypogranular Neuts Not Reportable 10/04/17 05:49 Smudge Cells Not Reportable 10/04/17 05:49 Toxic Granulation Not Reportable 10/04/17 05:49 Toxic Vacuolation Not Reportable 10/04/17 05:49 Dohle Bodies Not Reportable 10/04/17 05:49 Pelger-Huet Anomaly Not Reportable 10/04/17 05:49 Diaz Rods Not Reportable 10/04/17 05:49 Platelet Estimate Appears normal 10/04/17 05:49 Clumped Platelets Not Reportable 10/04/17 05:49 Plt Clumps, EDTA Not Reportable 10/04/17 05:49 Large Platelets Not Reportable 10/04/17 05:49 Giant Platelets Not Reportable 10/04/17 05:49 Platelet Satelliting Not Reportable 10/04/17 05:49 Plt Morphology Comment Not Reportable 10/04/17 05:49 RBC Morphology Not Reportable 10/04/17 05:49 Dimorphic RBCs Not Reportable 10/04/17 05:49 Polychromasia Few 10/04/17 05:49 Hypochromasia Not Reportable 10/04/17 05:49 Poikilocytosis Not Reportable 10/04/17 05:49 Anisocytosis 1+ 10/04/17 05:49 Microcytosis Not Reportable 10/04/17 05:49 Macrocytosis Not Reportable 10/04/17 05:49 Spherocytes Not Reportable 10/04/17 05:49 Pappenheimer Bodies Not Reportable 10/04/17 05:49 Sickle Cells Not Reportable 10/04/17 05:49 Target Cells Not Reportable 10/04/17 05:49 Tear Drop Cells Not Reportable 10/04/17 05:49 Ovalocytes Not Reportable 10/04/17 05:49 Helmet Cells Not Reportable 10/04/17 05:49 Guzmán-Lena Bodies Not Reportable 10/04/17 05:49 [place] Rings Not Reportable 10/04/17 05:49 Daniela Cells Not Reportable 10/04/17 05:49 Bite Cells Not Reportable 10/04/17 05:49 Crenated Cell Not Reportable 10/04/17 05:49 Elliptocytes Not Reportable 10/04/17 05:49 Acanthocytes (Spur) Not Reportable 10/04/17 05:49 Rouleaux Not Reportable 10/04/17 05:49 Hemoglobin C Crystals Not Reportable 10/04/17 05:49 Schistocytes Not Reportable 10/04/17 05:49 Malaria parasites Not Reportable 10/04/17 05:49 Dash Bodies Not Reportable 10/04/17 05:49 Hem Pathologist Commnt No 10/04/17 05:49 POC ABG pH 7.459 (7.35-7.45) H 09/23/17 15:04 POC ABG pCO2 34.8 (35-45) L 09/23/17 15:04 POC ABG pO2 54 (80-105) L 09/23/17 15:04 POC ABG HCO3 24.7 09/23/17 15:04 POC ABG Total CO2 26 09/23/17 15:04 POC ABG O2 Sat 89 09/23/17 15:04 POC ABG Base Excess 1 09/23/17 15:04 FiO2 21 % 09/23/17 15:04 Sodium 131 mmol/L (137-145) L 10/06/17 05:50 Potassium 4.2 mmol/L (3.6-5.0) 10/06/17 05:50 Chloride 91.9 mmol/L (98-107) L 10/06/17 05:50 Carbon Dioxide 24 mmol/L (22-30) 10/06/17 05:50 Anion Gap 19 mmol/L 10/06/17 05:50 BUN 27 mg/dL (9-20) H 10/06/17 05:50 Creatinine 3.0 mg/dL (0.8-1.5) H 10/06/17 05:50 Estimated GFR 28 ml/min 10/06/17 05:50 BUN/Creatinine Ratio 9 % 10/06/17 05:50 Glucose 140 mg/dL (75-100) H 10/06/17 05:50 POC Glucose 191 (70-105) H 10/05/17 21:29 Osmolality 299 Mosm/kg 09/30/17 05:21 Calcium 7.9 mg/dL (8.4-10.2) L 10/06/17 05:50 Phosphorus 3.30 mg/dL (2.5-4.5) 09/30/17 05:21 Magnesium 1.70 mg/dL (1.7-2.3) 09/26/17 05:35 Total Creatine Kinase 170 units/L (55-170) 09/23/17 04:10 CK-MB (CK-2) 1.4 ng/mL (0.0-4.0) 09/23/17 04:10 CK-MB (CK-2) Rel Index 0.8 (0-4) 09/23/17 04:10 Troponin T 0.287 ng/mL (0.00-0.029) H* 09/23/17 04:10 C-Reactive Protein 7.60 mg/dL (0.00-1.30) H 10/01/17 20:41 NT-Pro-B Natriuret Pep 5093 pg/mL (0-450) H 09/22/17 21:31 Triglycerides 226 mg/dL (2-149) H 09/22/17 21:31 Cholesterol 235 mg/dL (50-199) H 09/22/17 21:31 LDL Cholesterol Direct 164 mg/dL (50-130) H 09/22/17 21:31 HDL Cholesterol 26 mg/dL (40-59) L 09/22/17 21:31 Cholesterol/HDL Ratio 9.03 % 09/22/17 21:31 Urine Eosinophils None seen (None Seen) 09/29/17 Unknown Vancomycin Trough 36.3 ug/mL (5.0-20.0) H 09/28/17 07:00 Hepatitis A IgM Ab Non-reactive (NonReactive) 10/02/17 17:35 Hep Bs Antigen Non-reactive (Negative) 10/02/17 17:35 Hep B Core IgM Ab Non-reactive (NonReactive) 10/02/17 17:35 Hepatitis C Antibody Non-reactive (NonReactive) 10/02/17 17:35 HIV-1 RNA PCR copies/ml TNR 09/27/17 21:18 HIV-1 RNA (PCR) log TNR 09/27/17 21:18 HIV 1&2 Antibody Rapid Non react (Non React) 09/27/17 21:18 HIV P24 Antigen Non react (Non React) 09/27/17 21:18 Miscellaneous Test Flexitest 1 H 09/27/17 21:19
--- NOTE | 2017-10-06 11:11 | Progress Note ---
Assessment and Plan (1) Acute renal failure (ARF) Current Visit: Yes Status: Acute Plan to address problem: no indication for HD today will hold dialyssi for now and check 24 hours creatinine clearance Avoid Nephrotoxic agents Renally dose medications Obtain daily weights Monitor intake and output Renal ultrasound reviewed-No Hydronephrosis or mass. (2) Bilateral pneumonia Current Visit: Yes Status: Acute Qualifiers: Pneumonia type: due to unspecified organism Lung location: unspecified part of lung Qualified Code(s): J18.9 - Pneumonia, unspecified organism Plan to address problem: Patient is on IV Levaquin and Zyvox (3) Systolic heart failure Current Visit: Yes Status: Acute Plan to address problem: Was on Milronone drip as per Cardiology UF with HD (4) Diabetes mellitus type 2, insulin dependent Current Visit: No Status: Acute Plan to address problem: Insulin as per Primary team (5) Hyponatremia Current Visit: Yes Status: Acute Plan to address problem: Fluid restriction of 750 ml per No salt tablets due to CHF (6) Hypertension Current Visit: Yes Status: Acute Plan to address problem: Blood pressures are stable. Continue on Coreg. Subjective Date of service: 10/06/17 Principal diagnosis: Acute Hypoxemic Resp Failure; Bilateral Pulmonary Infiltrates; HFrEF Interval history: tolerated HD yesterday, breathing cont to improve Objective - Vital Signs Vital signs: Vital Signs - 12hr 10/05/17 10/06/17 10/06/17 23:55 04:49 08:33 Temperature 98.0 F 98.3 F Pulse Rate 118 H 114 H Respiratory 18 18 Rate Blood Pressure 126/77 131/98 O2 Sat by Pulse 98 93 95 Oximetry 10/06/17 09:09 Temperature 98.3 F Pulse Rate 115 H Respiratory 18 Rate Blood Pressure 122/90 O2 Sat by Pulse 97 Oximetry - General Appearance General appearance: well-developed, well-nourished, appears stated age EENT: ATNC, PERRL, mucous membranes moist Neck: no JVD, no carotid bruit Respiratory: Present: Clear to Ascultation. Absent: Rales, Ronchi Cardiology: regular, S1S2 Gastrointestinal: normoactive bowel sounds, no tenderness, no distended, no guarding Integumentary: no rash, warm and dry Neurologic: no focal deficit, no asterixis, alert and oriented x3 Musculoskeletal: other (trace pitting edema in BLE) Psychiatric: mood/affect appropriate, cooperative - Lab 10/06/17 05:50 10/06/17 05:50 Most recent lab results Calcium 7.9 mg/dL (8.4-10.2) L 10/06/17 05:50 Phosphorus 3.30 mg/dL (2.5-4.5) 09/30/17 05:21 Magnesium 1.70 mg/dL (1.7-2.3) 09/26/17 05:35
--- NOTE | 2017-10-06 12:15 | Progress Note ---
Assessment and Plan Assessment: 1) Sepsis: resolved. Etiology most likely bilateral pneumonia. -blood cultures 09/22 ngtd -CRP = 34.90 --> 7.6 -Procal 6.7 -Viral hepatitis panel negative -HIV non reactive 2) Bilateral pneumonia: ? post-influenza pneumonia ? 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 Ondina Arndt MD Infectious Diseases Specialist [facility] ([facility]) M [phone] O [phone] Subjective Date of service: 10/06/17 Principal diagnosis: Acute Hypoxemic Resp Failure; Bilateral Pulmonary Infiltrates; HFrEF Interval history: I want to stop all my medications except for the antibiotics, no fever Microbiology: Blood cultures: 09/22 ngtd 09/10 negative Urine cultures: Respiratory cultures: Current Antimicrobials: Levaquin 09/28 zyvox 09/29 Previous Antimicrobials: Zosyn 09/23 Vanco 09/23 Tamiflu 09/27 Objective - Exam Narrative Exam: General appearance: Alert in NAD, conversant Eyes: anicteric sclerae, moist conjunctivae; no lid-lag; PERRLA HENT: Atraumatic; oropharynx clear with moist mucous membranes and no mucosal ulcerations/no oral thrush; Neck: Trachea midline; supple, no thyromegaly or lymphadenopathy Lungs: diminish in bilateral lung bases, SOB CV: RRR, no murmurs Abdomen: Soft, non-tender; +BS x 4 Extremities: No peripheral edema or extremity lymphadenopathy Skin: Normal temperature, turgor and texture; no rash, ulcers or subcutaneous nodules Psych: Appropriate affect, cooperative Neuro: alert and oriented x 3. Moving all extermities Lines: No CVL / PICC - Constitutional Vitals: Vital Signs Temp Pulse Resp BP Pulse Ox 98.3 F 103 H 20 122/90 97 10/06/17 09:09 10/06/17 10:00 10/06/17 10:00 10/06/17 09:09 10/06/17 09:09 Temperature -Last 24 Hours Temperature 98.3 F Temperature 98.3 F Temperature 98.0 F Temperature 98.3 F Temperature 98.2 F Temperature 98.2 F - Labs CBC & Chem 7: 10/06/17 05:50 10/06/17 05:50 Labs: Abnormal lab results 10/05/17 10/05/17 10/06/17 Range/Units 12:34 21:29 05:50 Hgb (11.8-15.2) gm/dl Hct (35.5-45.6) % RDW (13.2-15.2) % Jack % (Auto) (0.0-7.3) % Jack # (0.0-0.8) K/mm3 Sodium 131 L (137-145) mmol/L Chloride 91.9 L (98-107) mmol/L BUN 27 H (9-20) mg/dL Creatinine 3.0 H (0.8-1.5) mg/dL Glucose 140 H (75-100) mg/dL POC Glucose 161 H 191 H (70-105) Calcium 7.9 L (8.4-10.2) mg/dL 10/06/17 Range/Units 05:50 Hgb 10.6 L D (11.8-15.2) gm/dl Hct 32.4 L D (35.5-45.6) % RDW 15.5 H (13.2-15.2) % Jack % (Auto) 15.6 H (0.0-7.3) % Jack # 1.2 H (0.0-0.8) K/mm3 Sodium (137-145) mmol/L Chloride (98-107) mmol/L BUN (9-20) mg/dL Creatinine (0.8-1.5) mg/dL Glucose (75-100) mg/dL POC Glucose (70-105) Calcium (8.4-10.2) mg/dL
--- NOTE | 2017-10-06 12:54 | Magnetic Resonance Report ---
MRI OF THE BRAIN WITHOUT CONTRAST: HISTORY: CVA PROCEDURE: Multiplanar, multisequence MR imaging of the brain without IV contrast was performed. FINDINGS: Compared to the CT head without contrast dated 09/22/17. MRI demonstrates faint diffusion restriction in the medial left occipital lobe measuring up to 4.2 x 2.5 cm in axial plane on diffusion image 18. There is no corresponding decrease signal in this area on the ADC map. These findings suggest a subacute ischemic insult within the left PATTERN GRADER distribution. This corresponds with the area of diminished attenuation seen on CT head dated 09/22/17. No additional areas of diffusion restriction is identified. No evidence for hemorrhage, mass effect or midline shift. No extra-axial fluid collection. The remaining brain parenchyma demonstrates normal signal on the remaining sequences. The midline structures are central. The basal cisterns are patent. Normal ventricular size. The orbital cavities and sella turcica demonstrate no abnormality. The visualized paranasal sinuses and mastoid air cells are well aerated. IMPRESSION: A subacute to early chronic ischemic insult is suspected in the medial left occipital lobe as outlined above. This is similar in appearance and size to the abnormality noted on recent CT head.
--- NOTE | 2017-10-06 12:59 | Magnetic Resonance Report ---
MRA HEAD WITHOUT CONTRAST HISTORY: Stroke. [id number] imaging with MIP reformations of the [place] is submitted. MRI brain without contrast performed the same day was reviewed. Noncontrast MRA demonstrates relatively normal endovascular signal throughout the anterior and posterior circulations. The right A1 segment is aplastic. There is filling of the right anterior cerebral artery through a patent anterior communicating artery which is a normal variant. There are small bilateral posterior communicating arteries as well. The vertebral arteries are patent and codominant. The basilar artery is widely patent. The right RESIST COATER DEVELOPER is widely patent. There is suggestion of decreased flow/endovascular signal in the distal P3 segment of the left posterior cerebral artery which is best demonstrated on axial source image 71. This could represent occlusion or partial thrombosis. IMPRESSION: Question thrombosis or partial thrombosis of the distal left RESIST COATER DEVELOPER as described above. This correlates with the ischemic insults seen on MR brain performed the same day.
--- NOTE | 2017-10-06 13:00 | Magnetic Resonance Report ---
MRA NECK WITHOUT CONTRAST HISTORY: Stroke. TECHNIQUE: [id number] imaging with MIP reformations of the neck is submitted. FINDINGS: The bilateral carotid and vertebral systems appear widely patent and free of hemodynamically significant stenosis, aneurysm, or dissection. IMPRESSION: MRA neck within normal limits. No hemodynamically significant stenosis or occlusion.
--- NOTE | 2017-10-06 14:25 | Progress Note ---
Assessment and Plan Acute CVA Pneumonia Chronic systolic heart failure Acute renal failure initiated on dialysis Cardiomyopathy, etiology unclear EF 10-15% on echocardiogram. Diabetes Hypertension Hyperlipidemia Recommendations: We will get MAYKEL tomorrow morning, for rule out cardioembolic source. Further ischemic cardiac workup with a cardiac cath before discharge. Subjective Date of service: 10/06/17 Principal diagnosis: Acute Hypoxemic Resp Failure; Bilateral Pulmonary Infiltrates; HFrEF Interval history: Patient denies chest pain. His breathing is improving. No arrhythmias seen on telemetry monitoring. Objective Vital Signs Temp Pulse Pulse Resp BP Pulse Ox 10/06/17 10:00 103 H 20 10/06/17 09:09 98.3 F 115 H 18 122/90 97 10/06/17 08:33 95 10/06/17 04:49 98.3 F 114 H 18 131/98 93 10/05/17 23:55 98.0 F 118 H 18 126/77 98 10/05/17 22:55 117 H 22 100 10/05/17 22:00 116 H 10/05/17 21:34 98 10/05/17 19:45 98.3 F 116 H 18 124/87 98 10/05/17 17:40 98.2 F 100 H 18 137/85 10/05/17 17:35 97 H 128/89 10/05/17 17:15 100 H 125/78 10/05/17 17:00 98 H 130/76 10/05/17 16:45 94 H 132/78 10/05/17 16:30 92 H 120/80 10/05/17 16:15 98 H 132/90 10/05/17 16:00 100 H 126/92 10/05/17 15:45 104 H 129/91 10/05/17 15:30 111 H 123/88 10/05/17 15:15 111 H 133/97 10/05/17 15:00 113 H 140/94 10/05/17 14:45 112 H 123/80 10/05/17 14:35 98.2 F 113 H 18 123/82 - Physical Examination General: No Apparent Distress HEENT: Positive: PERRL Cardiac: Positive: Reg Rate and Rhythm Neuro: Positive: Grossly Intact - Labs and Meds CBC 10/06/17 Range/Units 05:50 WBC 7.9 (4.5-11.0) K/mm3 RBC 3.81 (3.65-5.03) M/mm3 Hgb 10.6 L D (11.8-15.2) gm/dl Hct 32.4 L D (35.5-45.6) % Plt Count 364 (140-440) K/mm3 Lymph # 1.2 (1.2-5.4) K/mm3 [place] # 1.2 H (0.0-0.8) K/mm3 Eos # 0.2 (0.0-0.4) K/mm3 Baso # 0.0 (0.0-0.1) K/mm3 Comprehensive Metabolic Panel 10/06/17 Range/Units 05:50 Sodium 131 L (137-145) mmol/L Potassium 4.2 (3.6-5.0) mmol/L Chloride 91.9 L (98-107) mmol/L Carbon Dioxide 24 (22-30) mmol/L BUN 27 H (9-20) mg/dL Creatinine 3.0 H (0.8-1.5) mg/dL Glucose 140 H (75-100) mg/dL Calcium 7.9 L (8.4-10.2) mg/dL - Imaging and Cardiology EKG: image reviewed
--- NOTE | 2017-10-06 18:15 | Progress Note ---
Assessment and Plan Acute hypoxemic respiratory failure Bilateral infiltrates, pneumonia Sepsis Hyponatremia Diabetes, poorly controlled Morbid obesity Systolic heart failure, EF 15% Tobacco abuse disorder Acute Renal failure -Supplemental oxygen to keep O2 sats>90% -NIPPV prn -Get MRI to evaluate for CVA-cardioembolic -Antibiotics per ID -Milrirone per cardiology -VTE prophylaxis -ABG prn - Smoking cessation counselling done again -Nicotine withdrawal precautions -Outpatient sleep study Subjective Date of service: 10/06/17 Principal diagnosis: Acute Hypoxemic Resp Failure; Bilateral Pulmonary Infiltrates; HFrEF Interval history: Patient is seen today for: Acute Hypoxemic Resp Failure; Bilateral Pulmonary Infiltrates; HFrEF Seen and examined at bedside; 24hour events reviewed; nursing and respiratory care staff consulted; no adverse overnight events reported to me; resting in bed ; feels better; on 2L NC; denies acute chest pains; + cough no hemoptysis; No N/ V/F/C Hemodialysis catheter was placed and HD initiated. States he cannot see in the right eye Objective - Exam Narrative Exam: General appearance: Alert in NAD, conversant Eyes: anicteric sclerae, moist conjunctivae; no lid-lag; PERRLA HENT: Atraumatic; oropharynx clear with moist mucous membranes and no mucosal ulcerations/no oral thrush; Neck: Trachea midline; supple, no thyromegaly or lymphadenopathy Lungs: diminish in bilateral lung bases, SOB CV: RRR, no murmurs Abdomen: Soft, non-tender; +BS x 4 Extremities: No peripheral edema or extremity lymphadenopathy Skin: Normal temperature, turgor and texture; no rash, ulcers or subcutaneous nodules Psych: Appropriate affect, cooperative Neuro: alert and oriented x 3. Moving all extermities Lines: No CVL / PICC Vital Signs - 12hr 10/06/17 10/06/17 10/06/17 08:33 09:09 10:00 Temperature 98.3 F Pulse Rate 115 H Pulse Rate [ 103 H Apical] Respiratory 18 20 Rate Blood Pressure 122/90 O2 Sat by Pulse 95 97 Oximetry Constitutional: no acute distress, alert Eyes: non-icteric ENT: oropharynx moist, other (No thyromegaly) Neck: supple, no lymphadenopathy, no JVD Effort: mildly labored Ascultation: Bilateral: diminished breath sounds, rales (bases) Percussion: Bilateral: not dull Cardiovascular: regular rate and rhythm, murmur noted, other (no rubs) Gastrointestinal: normoactive bowel sounds, soft, non-tender Integumentary: normal Extremities: no cyanosis, pulses normal, no ischemia or petechiae, edema Neurologic: normal mental status, non-focal exam, pupils equal and round, CN II- XII normal Psychiatric: mood appropriate, affect normal CBC and BMP: 10/13/17 06:20 10/13/17 06:20 ABG, PT/INR, D-dimer: ABG POC ABG pH 7.459 (7.35-7.45) H 09/23/17 15:04 POC ABG pCO2 34.8 (35-45) L 09/23/17 15:04 POC ABG pO2 54 (80-105) L 09/23/17 15:04 POC ABG HCO3 24.7 09/23/17 15:04 POC ABG Total CO2 26 09/23/17 15:04 POC ABG O2 Sat 89 09/23/17 15:04 Abnormal lab findings: Abnormal Labs 09/22/17 09/22/17 09/22/17 21:30 21:31 21:31 WBC RBC Hgb Hct MCH RDW 15.3 H Lymph % (Auto) Carver % (Auto) 9.6 H Eos % (Auto) Lymph # Carver # 0.9 H Seg Neutrophils % 72.0 H Seg Neuts % (Manual) Monocytes % (Manual) Seg Neutrophils # POC ABG pH POC ABG pCO2 POC ABG pO2 Sodium Chloride Carbon Dioxide BUN Creatinine Glucose POC Glucose Calcium Total Creatine Kinase 371 H Troponin T 0.260 H* C-Reactive Protein NT-Pro-B Natriuret Pep 5093 H Triglycerides 226 H Cholesterol 235 H LDL Cholesterol Direct 164 H HDL Cholesterol 26 L Vancomycin Trough Miscellaneous Test 09/22/17 09/22/17 09/23/17 22:54 22:54 04:00 WBC RBC Hgb Hct MCH RDW Lymph % (Auto) Carver % (Auto) 11.9 H Eos % (Auto) Lymph # Carver # Seg Neutrophils % Seg Neuts % (Manual) Monocytes % (Manual) Seg Neutrophils # POC ABG pH POC ABG pCO2 POC ABG pO2 Sodium 129 L Chloride 91.6 L Carbon Dioxide BUN Creatinine 0.7 L Glucose 256 H POC Glucose Calcium 7.9 L Total Creatine Kinase 211 H Troponin T 0.344 H* D C-Reactive Protein NT-Pro-B Natriuret Pep Triglycerides Cholesterol LDL Cholesterol Direct HDL Cholesterol Vancomycin Trough Miscellaneous Test 09/23/17 09/23/17 09/23/17 04:00 04:10 09:09 WBC RBC Hgb Hct MCH RDW Lymph % (Auto) Carver % (Auto) Eos % (Auto) Lymph # Carver # Seg Neutrophils % Seg Neuts % (Manual) Monocytes % (Manual) Seg Neutrophils # POC ABG pH POC ABG pCO2 POC ABG pO2 Sodium 136 L D Chloride 95.3 L Carbon Dioxide BUN Creatinine Glucose 181 H POC Glucose 166 H Calcium 7.7 L Total Creatine Kinase Troponin T 0.287 H* C-Reactive Protein NT-Pro-B Natriuret Pep Triglycerides Cholesterol LDL Cholesterol Direct HDL Cholesterol Vancomycin Trough Miscellaneous Test 09/23/17 09/23/17 09/23/17 11:40 13:19 15:04 WBC RBC Hgb Hct MCH RDW Lymph % (Auto) Carver % (Auto) Eos % (Auto) Lymph # Carver # Seg Neutrophils % Seg Neuts % (Manual) Monocytes % (Manual) Seg Neutrophils # POC ABG pH 7.459 H POC ABG pCO2 34.8 L POC ABG pO2 54 L Sodium Chloride Carbon Dioxide BUN Creatinine Glucose POC Glucose 221 H 267 H Calcium Total Creatine Kinase Troponin T C-Reactive Protein NT-Pro-B Natriuret Pep Triglycerides Cholesterol LDL Cholesterol Direct HDL Cholesterol Vancomycin Trough Miscellaneous Test 09/23/17 09/23/17 09/24/17 15:57 22:07 04:40 WBC RBC Hgb Hct MCH RDW Lymph % (Auto) Carver % (Auto) 11.4 H Eos % (Auto) Lymph # Carver # Seg Neutrophils % Seg Neuts % (Manual) Monocytes % (Manual) Seg Neutrophils # POC ABG pH POC ABG pCO2 POC ABG pO2 Sodium Chloride Carbon Dioxide BUN Creatinine Glucose POC Glucose 281 H 166 H Calcium Total Creatine Kinase Troponin T C-Reactive Protein NT-Pro-B Natriuret Pep Triglycerides Cholesterol LDL Cholesterol Direct HDL Cholesterol Vancomycin Trough Miscellaneous Test 09/24/17 09/24/17 09/24/17 04:40 08:42 12:17 WBC RBC Hgb Hct MCH RDW Lymph % (Auto) Carver % (Auto) Eos % (Auto) Lymph # Carver # Seg Neutrophils % Seg Neuts % (Manual) Monocytes % (Manual) Seg Neutrophils # POC ABG pH POC ABG pCO2 POC ABG pO2 Sodium 133 L Chloride 95.6 L Carbon Dioxide BUN Creatinine 0.7 L Glucose 251 H POC Glucose 173 H 209 H Calcium 7.8 L Total Creatine Kinase Troponin T C-Reactive Protein NT-Pro-B Natriuret Pep Triglycerides Cholesterol LDL Cholesterol Direct HDL Cholesterol Vancomycin Trough Miscellaneous Test 09/24/17 09/24/17 09/25/17 16:13 21:21 12:44 WBC RBC Hgb Hct MCH RDW Lymph % (Auto) Carver % (Auto) Eos % (Auto) Lymph # Carver # Seg Neutrophils % Seg Neuts % (Manual) Monocytes % (Manual) Seg Neutrophils # POC ABG pH POC ABG pCO2 POC ABG pO2 Sodium Chloride Carbon Dioxide BUN Creatinine Glucose POC Glucose 248 H 152 H 185 H Calcium Total Creatine Kinase Troponin T C-Reactive Protein NT-Pro-B Natriuret Pep Triglycerides Cholesterol LDL Cholesterol Direct HDL Cholesterol Vancomycin Trough Miscellaneous Test 09/25/17 09/25/17 09/26/17 17:18 23:10 05:35 WBC 15.6 H RBC Hgb Hct MCH RDW Lymph % (Auto) Carver % (Auto) Eos % (Auto) Lymph # Carver # Seg Neutrophils % 78.5 H Seg Neuts % (Manual) Monocytes % (Manual) Seg Neutrophils # 12.2 H POC ABG pH POC ABG pCO2 POC ABG pO2 Sodium Chloride Carbon Dioxide BUN Creatinine Glucose POC Glucose 186 H 187 H Calcium Total Creatine Kinase Troponin T C-Reactive Protein NT-Pro-B Natriuret Pep Triglycerides Cholesterol LDL Cholesterol Direct HDL Cholesterol Vancomycin Trough Miscellaneous Test 09/26/17 09/26/17 09/26/17 05:35 09:02 12:20 WBC RBC Hgb Hct MCH RDW Lymph % (Auto) Carver % (Auto) Eos % (Auto) Lymph # Carver # Seg Neutrophils % Seg Neuts % (Manual) Monocytes % (Manual) Seg Neutrophils # POC ABG pH POC ABG pCO2 POC ABG pO2 Sodium 133 L Chloride 95.2 L Carbon Dioxide BUN Creatinine 0.7 L Glucose 161 H POC Glucose 131 H 199 H Calcium 8.3 L Total Creatine Kinase Troponin T C-Reactive Protein NT-Pro-B Natriuret Pep Triglycerides Cholesterol LDL Cholesterol Direct HDL Cholesterol Vancomycin Trough Miscellaneous Test 0109/26/17 09/27/17 16:39 21:45 07:24 WBC RBC Hgb Hct MCH RDW Lymph % (Auto) Carver % (Auto) Eos % (Auto) Lymph # Carver # Seg Neutrophils % Seg Neuts % (Manual) Monocytes % (Manual) Seg Neutrophils # POC ABG pH POC ABG pCO2 POC ABG pO2 Sodium Chloride Carbon Dioxide BUN Creatinine Glucose POC Glucose 209 H 194 H 210 H Calcium Total Creatine Kinase Troponin T C-Reactive Protein NT-Pro-B Natriuret Pep Triglycerides Cholesterol LDL Cholesterol Direct HDL Cholesterol Vancomycin Trough Miscellaneous Test 09/27/17 09/27/17 09/27/17 09:20 09:20 11:50 WBC RBC Hgb 11.0 L Hct MCH RDW Lymph % (Auto) Carver % (Auto) Eos % (Auto) Lymph # Carver # Seg Neutrophils % 77.2 H Seg Neuts % (Manual) Monocytes % (Manual) Seg Neutrophils # POC ABG pH POC ABG pCO2 POC ABG pO2 Sodium 134 L Chloride 96.1 L Carbon Dioxide BUN 21 H Creatinine Glucose 139 H POC Glucose Calcium 8.0 L Total Creatine Kinase Troponin T C-Reactive Protein NT-Pro-B Natriuret Pep Triglycerides Cholesterol LDL Cholesterol Direct HDL Cholesterol Vancomycin Trough 46.8 H Miscellaneous Test 09/27/17 09/27/17 09/27/17 11:50 12:18 17:00 WBC RBC Hgb 10.7 L Hct 32.1 L D MCH RDW Lymph % (Auto) Carver % (Auto) Eos % (Auto) Lymph # Carver # Seg Neutrophils % 80.6 H Seg Neuts % (Manual) Monocytes % (Manual) Seg Neutrophils # POC ABG pH POC ABG pCO2 POC ABG pO2 Sodium Chloride Carbon Dioxide BUN Creatinine Glucose POC Glucose 274 H 169 H Calcium Total Creatine Kinase Troponin T C-Reactive Protein NT-Pro-B Natriuret Pep Triglycerides Cholesterol LDL Cholesterol Direct HDL Cholesterol Vancomycin Trough Miscellaneous Test 09/27/17 09/27/17 09/27/17 21:18 21:19 23:28 WBC RBC Hgb Hct MCH RDW Lymph % (Auto) Carver % (Auto) Eos % (Auto) Lymph # Carver # Seg Neutrophils % Seg Neuts % (Manual) Monocytes % (Manual) Seg Neutrophils # POC ABG pH POC ABG pCO2 POC ABG pO2 Sodium Chloride Carbon Dioxide BUN Creatinine Glucose POC Glucose 251 H Calcium Total Creatine Kinase Troponin T C-Reactive Protein 34.90 H NT-Pro-B Natriuret Pep Triglycerides Cholesterol LDL Cholesterol Direct HDL Cholesterol Vancomycin Trough Miscellaneous Test Flexitest 1 H 09/27/17 09/28/17 09/28/17 23:49 07:00 07:00 WBC RBC 3.44 L Hgb 9.9 L Hct 29.6 L MCH RDW Lymph % (Auto) Carver % (Auto) Eos % (Auto) Lymph # 1.0 L Carver # Seg Neutrophils % 76.2 H Seg Neuts % (Manual) Monocytes % (Manual) Seg Neutrophils # POC ABG pH POC ABG pCO2 POC ABG pO2 Sodium 128 L Chloride 92.1 L Carbon Dioxide 20 L BUN 40 H Creatinine 3.1 H D Glucose 199 H POC Glucose 233 H Calcium 7.5 L Total Creatine Kinase Troponin T C-Reactive Protein NT-Pro-B Natriuret Pep Triglycerides Cholesterol LDL Cholesterol Direct HDL Cholesterol Vancomycin Trough Miscellaneous Test 09/28/17 09/28/17 09/28/17 07:00 08:03 13:31 WBC RBC Hgb Hct MCH RDW Lymph % (Auto) Carver % (Auto) Eos % (Auto) Lymph # Carver # Seg Neutrophils % Seg Neuts % (Manual) Monocytes % (Manual) Seg Neutrophils # POC ABG pH POC ABG pCO2 POC ABG pO2 Sodium Chloride Carbon Dioxide BUN Creatinine Glucose POC Glucose 165 H 237 H Calcium Total Creatine Kinase Troponin T C-Reactive Protein NT-Pro-B Natriuret Pep Triglycerides Cholesterol LDL Cholesterol Direct HDL Cholesterol Vancomycin Trough 36.3 H Miscellaneous Test 09/28/17 09/28/17 09/29/17 16:20 22:12 05:20 WBC RBC Hgb 11.4 L Hct 34.5 L MCH RDW Lymph % (Auto) 10.5 L Carver % (Auto) 9.1 H Eos % (Auto) Lymph # 0.5 L Carver # Seg Neutrophils % 75.8 H Seg Neuts % (Manual) Monocytes % (Manual) Seg Neutrophils # POC ABG pH POC ABG pCO2 POC ABG pO2 Sodium Chloride Carbon Dioxide BUN Creatinine Glucose POC Glucose 323 H 164 H Calcium Total Creatine Kinase Troponin T C-Reactive Protein NT-Pro-B Natriuret Pep Triglycerides Cholesterol LDL Cholesterol Direct HDL Cholesterol Vancomycin Trough Miscellaneous Test 09/29/17 09/29/17 09/29/17 05:20 07:53 16:21 WBC RBC Hgb Hct MCH RDW Lymph % (Auto) Carver % (Auto) Eos % (Auto) Lymph # Carver # Seg Neutrophils % Seg Neuts % (Manual) Monocytes % (Manual) Seg Neutrophils # POC ABG pH POC ABG pCO2 POC ABG pO2 Sodium 128 L Chloride 91.6 L Carbon Dioxide 21 L BUN 51 H Creatinine 3.8 H Glucose 161 H POC Glucose 128 H 141 H Calcium Total Creatine Kinase Troponin T C-Reactive Protein NT-Pro-B Natriuret Pep Triglycerides Cholesterol LDL Cholesterol Direct HDL Cholesterol Vancomycin Trough Miscellaneous Test 09/29/17 09/30/17 09/30/17 22:17 05:21 05:21 WBC RBC Hgb 10.3 L Hct 32.1 L MCH 27 L RDW Lymph % (Auto) 11.6 L Carver % (Auto) 9.3 H Eos % (Auto) 4.9 H Lymph # 0.8 L Carver # Seg Neutrophils % 73.6 H Seg Neuts % (Manual) Monocytes % (Manual) Seg Neutrophils # POC ABG pH POC ABG pCO2 POC ABG pO2 Sodium 127 L Chloride 90.9 L Carbon Dioxide BUN 52 H Creatinine 4.5 H Glucose 187 H POC Glucose 158 H Calcium 7.9 L Total Creatine Kinase Troponin T C-Reactive Protein NT-Pro-B Natriuret Pep Triglycerides Cholesterol LDL Cholesterol Direct HDL Cholesterol Vancomycin Trough Miscellaneous Test 09/30/17 09/30/17 09/30/17 07:47 11:55 21:44 WBC RBC Hgb Hct MCH RDW Lymph % (Auto) Carver % (Auto) Eos % (Auto) Lymph # Carver # Seg Neutrophils % Seg Neuts % (Manual) Monocytes % (Manual) Seg Neutrophils # POC ABG pH POC ABG pCO2 POC ABG pO2 Sodium Chloride Carbon Dioxide BUN Creatinine Glucose POC Glucose 137 H 184 H 141 H Calcium Total Creatine Kinase Troponin T C-Reactive Protein NT-Pro-B Natriuret Pep Triglycerides Cholesterol LDL Cholesterol Direct HDL Cholesterol Vancomycin Trough Miscellaneous Test 10/01/17 10/01/17 10/01/17 06:03 06:03 16:37 WBC RBC Hgb 11.3 L Hct 33.6 L MCH RDW Lymph % (Auto) 11.2 L Carver % (Auto) 10.2 H Eos % (Auto) Lymph # 1.1 L Carver # 1.0 H Seg Neutrophils % 74.5 H Seg Neuts % (Manual) Monocytes % (Manual) Seg Neutrophils # POC ABG pH POC ABG pCO2 POC ABG pO2 Sodium 130 L Chloride 92.3 L Carbon Dioxide BUN 53 H Creatinine 4.5 H Glucose POC Glucose 125 H Calcium 8.0 L Total Creatine Kinase Troponin T C-Reactive Protein NT-Pro-B Natriuret Pep Triglycerides Cholesterol LDL Cholesterol Direct HDL Cholesterol Vancomycin Trough Miscellaneous Test 10/01/17 10/01/17 10/02/17 20:41 21:47 06:21 WBC RBC Hgb 11.5 L Hct 34.5 L MCH RDW 15.3 H Lymph % (Auto) Carver % (Auto) 12.4 H Eos % (Auto) Lymph # 0.9 L Carver # Seg Neutrophils % 70.6 H Seg Neuts % (Manual) Monocytes % (Manual) Seg Neutrophils # POC ABG pH POC ABG pCO2 POC ABG pO2 Sodium Chloride Carbon Dioxide BUN Creatinine Glucose POC Glucose 115 H Calcium Total Creatine Kinase Troponin T C-Reactive Protein 7.60 H NT-Pro-B Natriuret Pep Triglycerides Cholesterol LDL Cholesterol Direct HDL Cholesterol Vancomycin Trough Miscellaneous Test 10/02/17 10/02/17 10/02/17 06:21 07:47 21:56 WBC RBC Hgb Hct MCH RDW Lymph % (Auto) Carver % (Auto) Eos % (Auto) Lymph # Carver # Seg Neutrophils % Seg Neuts % (Manual) Monocytes % (Manual) Seg Neutrophils # POC ABG pH POC ABG pCO2 POC ABG pO2 Sodium 133 L Chloride 92.7 L Carbon Dioxide BUN 51 H Creatinine 4.7 H Glucose 113 H POC Glucose 118 H 154 H Calcium 8.0 L Total Creatine Kinase Troponin T C-Reactive Protein NT-Pro-B Natriuret Pep Triglycerides Cholesterol LDL Cholesterol Direct HDL Cholesterol Vancomycin Trough Miscellaneous Test 10/03/17 10/03/17 10/03/17 06:13 06:13 16:50 WBC RBC Hgb 10.7 L Hct 31.9 L MCH RDW 15.6 H Lymph % (Auto) Carver % (Auto) Eos % (Auto) Lymph # Carver # Seg Neutrophils % Seg Neuts % (Manual) Monocytes % (Manual) Seg Neutrophils # POC ABG pH POC ABG pCO2 POC ABG pO2 Sodium 134 L Chloride 95.3 L Carbon Dioxide BUN 32 H Creatinine 3.7 H Glucose POC Glucose 126 H Calcium 7.8 L Total Creatine Kinase Troponin T C-Reactive Protein NT-Pro-B Natriuret Pep Triglycerides Cholesterol LDL Cholesterol Direct HDL Cholesterol Vancomycin Trough Miscellaneous Test 10/04/17 10/04/17 10/04/17 05:49 05:49 12:01 WBC RBC Hgb 10.8 L Hct 32.3 L MCH RDW 15.6 H Lymph % (Auto) Carver % (Auto) Eos % (Auto) Lymph # Carver # Seg Neutrophils % Seg Neuts % (Manual) 72.0 H Monocytes % (Manual) 9.0 H Seg Neutrophils # POC ABG pH POC ABG pCO2 POC ABG pO2 Sodium 133 L Chloride 93.7 L Carbon Dioxide BUN 23 H Creatinine 3.2 H Glucose POC Glucose 140 H Calcium 7.8 L Total Creatine Kinase Troponin T C-Reactive Protein NT-Pro-B Natriuret Pep Triglycerides Cholesterol LDL Cholesterol Direct HDL Cholesterol Vancomycin Trough Miscellaneous Test 10/04/17 10/04/17 10/05/17 17:35 20:44 05:34 WBC RBC 5.17 H Hgb Hct MCH 27 L RDW 15.5 H Lymph % (Auto) Carver % (Auto) 13.6 H Eos % (Auto) Lymph # Carver # 0.9 H Seg Neutrophils % Seg Neuts % (Manual) Monocytes % (Manual) Seg Neutrophils # POC ABG pH POC ABG pCO2 POC ABG pO2 Sodium Chloride Carbon Dioxide BUN Creatinine Glucose POC Glucose 143 H 135 H Calcium Total Creatine Kinase Troponin T C-Reactive Protein NT-Pro-B Natriuret Pep Triglycerides Cholesterol LDL Cholesterol Direct HDL Cholesterol Vancomycin Trough Miscellaneous Test 10/05/17 10/05/17 10/05/17 05:34 12:34 21:29 WBC RBC Hgb Hct MCH RDW Lymph % (Auto) Carver % (Auto) Eos % (Auto) Lymph # Carver # Seg Neutrophils % Seg Neuts % (Manual) Monocytes % (Manual) Seg Neutrophils # POC ABG pH POC ABG pCO2 POC ABG pO2 Sodium 132 L Chloride 92.7 L Carbon Dioxide BUN 36 H Creatinine 3.7 H Glucose POC Glucose 161 H 191 H Calcium 7.8 L Total Creatine Kinase Troponin T C-Reactive Protein NT-Pro-B Natriuret Pep Triglycerides Cholesterol LDL Cholesterol Direct HDL Cholesterol Vancomycin Trough Miscellaneous Test 10/06/17 10/06/1718 05:50 05:50 13:14 WBC RBC Hgb 10.6 L D Hct 32.4 L D MCH RDW 15.5 H Lymph % (Auto) Carver % (Auto) 15.6 H Eos % (Auto) Lymph # Carver # 1.2 H Seg Neutrophils % Seg Neuts % (Manual) Monocytes % (Manual) Seg Neutrophils # POC ABG pH POC ABG pCO2 POC ABG pO2 Sodium 131 L Chloride 91.9 L Carbon Dioxide BUN 27 H Creatinine 3.0 H Glucose 140 H POC Glucose 162 H Calcium 7.9 L Total Creatine Kinase Troponin T C-Reactive Protein NT-Pro-B Natriuret Pep Triglycerides Cholesterol LDL Cholesterol Direct HDL Cholesterol Vancomycin Trough Miscellaneous Test
[2017-10-06] MEDS: LEVEMIR SUB-Q SCH (22:02)
[2017-10-06] MEDS: AMBIEN PO PRN (22:02)
--- NOTE | 2017-10-06 22:09 | Progress Note ---
Assessment and Plan See Interval History. Will repeat hepatic panel since LFTs were elevated earlier this month. If better enough, should start a statin. Subjective Date of service: 10/06/17 Principal diagnosis: stroke Interval history: Showed him a printout of his stroke in the medial occipital and medial temporal lobe from his MRI scan. 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 I see that the plan is to do a MAYKEL and I have added to the request to add bubbles and some type of Valsalva if possible. The echo will reassess his cardiomyopathy which may help in the decision as to whether he should be anticoagulated. If MAYKEL is negative, he may need additional stroke labs based on his age, including APLs, ACLs, etc. Objective - Exam Narrative Exam: No exam needed. - Vital Sign Vital Signs - 12hr 10/06/17 10/06/17 10/06/17 13:05 15:50 19:58 Temperature 97.9 F 98.4 F Pulse Rate 117 H Respiratory 20 18 Rate Blood Pressure 128/85 133/96 O2 Sat by Pulse 96 95 Oximetry 10/06/17 20:07 Temperature 99.0 F Pulse Rate 121 H Respiratory 20 Rate Blood Pressure 120/85 O2 Sat by Pulse 93 Oximetry - Laboratory Findings CBC and BMP: 10/06/17 05:50 10/06/17 05:50 Abnormal Lab Findings: Abnormal Labs 09/22/17 09/22/17 09/22/17 21:30 21:31 21:31 WBC RBC Hgb Hct MCH RDW 15.3 H Lymph % (Auto) Parker % (Auto) 9.6 H Eos % (Auto) Lymph # Parker # 0.9 H Seg Neutrophils % 72.0 H Seg Neuts % (Manual) Monocytes % (Manual) Seg Neutrophils # POC ABG pH POC ABG pCO2 POC ABG pO2 Sodium Chloride Carbon Dioxide BUN Creatinine Glucose POC Glucose Calcium Total Creatine Kinase 371 H Troponin T 0.260 H* C-Reactive Protein NT-Pro-B Natriuret Pep 5093 H Triglycerides 226 H Cholesterol 235 H LDL Cholesterol Direct 164 H HDL Cholesterol 26 L Vancomycin Trough Miscellaneous Test 09/22/17 09/22/17 09/23/17 22:54 22:54 04:00 WBC RBC Hgb Hct MCH RDW Lymph % (Auto) Parker % (Auto) 11.9 H Eos % (Auto) Lymph # Parker # Seg Neutrophils % Seg Neuts % (Manual) Monocytes % (Manual) Seg Neutrophils # POC ABG pH POC ABG pCO2 POC ABG pO2 Sodium 129 L Chloride 91.6 L Carbon Dioxide BUN Creatinine 0.7 L Glucose 256 H POC Glucose Calcium 7.9 L Total Creatine Kinase 211 H Troponin T 0.344 H* D C-Reactive Protein NT-Pro-B Natriuret Pep Triglycerides Cholesterol LDL Cholesterol Direct HDL Cholesterol Vancomycin Trough Miscellaneous Test 09/23/17 09/23/17 09/23/17 04:00 04:10 09:09 WBC RBC Hgb Hct MCH RDW Lymph % (Auto) Parker % (Auto) Eos % (Auto) Lymph # Parker # Seg Neutrophils % Seg Neuts % (Manual) Monocytes % (Manual) Seg Neutrophils # POC ABG pH POC ABG pCO2 POC ABG pO2 Sodium 136 L D Chloride 95.3 L Carbon Dioxide BUN Creatinine Glucose 181 H POC Glucose 166 H Calcium 7.7 L Total Creatine Kinase Troponin T 0.287 H* C-Reactive Protein NT-Pro-B Natriuret Pep Triglycerides Cholesterol LDL Cholesterol Direct HDL Cholesterol Vancomycin Trough Miscellaneous Test 09/23/17 09/23/17 09/23/17 11:40 13:19 15:04 WBC RBC Hgb Hct MCH RDW Lymph % (Auto) Parker % (Auto) Eos % (Auto) Lymph # Parker # Seg Neutrophils % Seg Neuts % (Manual) Monocytes % (Manual) Seg Neutrophils # POC ABG pH 7.459 H POC ABG pCO2 34.8 L POC ABG pO2 54 L Sodium Chloride Carbon Dioxide BUN Creatinine Glucose POC Glucose 221 H 267 H Calcium Total Creatine Kinase Troponin T C-Reactive Protein NT-Pro-B Natriuret Pep Triglycerides Cholesterol LDL Cholesterol Direct HDL Cholesterol Vancomycin Trough Miscellaneous Test 09/23/17 09/23/17 09/24/17 15:57 22:07 04:40 WBC RBC Hgb Hct MCH RDW Lymph % (Auto) Parker % (Auto) 11.4 H Eos % (Auto) Lymph # Parker # Seg Neutrophils % Seg Neuts % (Manual) Monocytes % (Manual) Seg Neutrophils # POC ABG pH POC ABG pCO2 POC ABG pO2 Sodium Chloride Carbon Dioxide BUN Creatinine Glucose POC Glucose 281 H 166 H Calcium Total Creatine Kinase Troponin T C-Reactive Protein NT-Pro-B Natriuret Pep Triglycerides Cholesterol LDL Cholesterol Direct HDL Cholesterol Vancomycin Trough Miscellaneous Test 09/24/17 09/24/17 09/24/17 04:40 08:42 12:17 WBC RBC Hgb Hct MCH RDW Lymph % (Auto) Parker % (Auto) Eos % (Auto) Lymph # Parker # Seg Neutrophils % Seg Neuts % (Manual) Monocytes % (Manual) Seg Neutrophils # POC ABG pH POC ABG pCO2 POC ABG pO2 Sodium 133 L Chloride 95.6 L Carbon Dioxide BUN Creatinine 0.7 L Glucose 251 H POC Glucose 173 H 209 H Calcium 7.8 L Total Creatine Kinase Troponin T C-Reactive Protein NT-Pro-B Natriuret Pep Triglycerides Cholesterol LDL Cholesterol Direct HDL Cholesterol Vancomycin Trough Miscellaneous Test 09/24/17 09/24/17 09/25/17 16:13 21:21 12:44 WBC RBC Hgb Hct MCH RDW Lymph % (Auto) Parker % (Auto) Eos % (Auto) Lymph # Parker # Seg Neutrophils % Seg Neuts % (Manual) Monocytes % (Manual) Seg Neutrophils # POC ABG pH POC ABG pCO2 POC ABG pO2 Sodium Chloride Carbon Dioxide BUN Creatinine Glucose POC Glucose 248 H 152 H 185 H Calcium Total Creatine Kinase Troponin T C-Reactive Protein NT-Pro-B Natriuret Pep Triglycerides Cholesterol LDL Cholesterol Direct HDL Cholesterol Vancomycin Trough Miscellaneous Test 09/25/17 09/25/17 09/26/17 17:18 23:10 05:35 WBC 15.6 H RBC Hgb Hct MCH RDW Lymph % (Auto) Parker % (Auto) Eos % (Auto) Lymph # Parker # Seg Neutrophils % 78.5 H Seg Neuts % (Manual) Monocytes % (Manual) Seg Neutrophils # 12.2 H POC ABG pH POC ABG pCO2 POC ABG pO2 Sodium Chloride Carbon Dioxide BUN Creatinine Glucose POC Glucose 186 H 187 H Calcium Total Creatine Kinase Troponin T C-Reactive Protein NT-Pro-B Natriuret Pep Triglycerides Cholesterol LDL Cholesterol Direct HDL Cholesterol Vancomycin Trough Miscellaneous Test 09/26/17 09/26/17 09/26/17 05:35 09:02 12:20 WBC RBC Hgb Hct MCH RDW Lymph % (Auto) Parker % (Auto) Eos % (Auto) Lymph # Parker # Seg Neutrophils % Seg Neuts % (Manual) Monocytes % (Manual) Seg Neutrophils # POC ABG pH POC ABG pCO2 POC ABG pO2 Sodium 133 L Chloride 95.2 L Carbon Dioxide BUN Creatinine 0.7 L Glucose 161 H POC Glucose 131 H 199 H Calcium 8.3 L Total Creatine Kinase Troponin T C-Reactive Protein NT-Pro-B Natriuret Pep Triglycerides Cholesterol LDL Cholesterol Direct HDL Cholesterol Vancomycin Trough Miscellaneous Test 09/26/17 09/26/17 09/27/17 16:39 21:45 07:24 WBC RBC Hgb Hct MCH RDW Lymph % (Auto) Parker % (Auto) Eos % (Auto) Lymph # Parker # Seg Neutrophils % Seg Neuts % (Manual) Monocytes % (Manual) Seg Neutrophils # POC ABG pH POC ABG pCO2 POC ABG pO2 Sodium Chloride Carbon Dioxide BUN Creatinine Glucose POC Glucose 209 H 194 H 210 H Calcium Total Creatine Kinase Troponin T C-Reactive Protein NT-Pro-B Natriuret Pep Triglycerides Cholesterol LDL Cholesterol Direct HDL Cholesterol Vancomycin Trough Miscellaneous Test 09/27/17 09/27/17 09/27/17 09:20 09:20 11:50 WBC RBC Hgb 11.0 L Hct MCH RDW Lymph % (Auto) Parker % (Auto) Eos % (Auto) Lymph # Parker # Seg Neutrophils % 77.2 H Seg Neuts % (Manual) Monocytes % (Manual) Seg Neutrophils # POC ABG pH POC ABG pCO2 POC ABG pO2 Sodium 134 L Chloride 96.1 L Carbon Dioxide BUN 21 H Creatinine Glucose 139 H POC Glucose Calcium 8.0 L Total Creatine Kinase Troponin T C-Reactive Protein NT-Pro-B Natriuret Pep Triglycerides Cholesterol LDL Cholesterol Direct HDL Cholesterol Vancomycin Trough 46.8 H Miscellaneous Test 09/27/17 09/27/17 09/27/17 11:50 12:18 17:00 WBC RBC Hgb 10.7 L Hct 32.1 L D MCH RDW Lymph % (Auto) Parker % (Auto) Eos % (Auto) Lymph # Parker # Seg Neutrophils % 80.6 H Seg Neuts % (Manual) Monocytes % (Manual) Seg Neutrophils # POC ABG pH POC ABG pCO2 POC ABG pO2 Sodium Chloride Carbon Dioxide BUN Creatinine Glucose POC Glucose 274 H 169 H Calcium Total Creatine Kinase Troponin T C-Reactive Protein NT-Pro-B Natriuret Pep Triglycerides Cholesterol LDL Cholesterol Direct HDL Cholesterol Vancomycin Trough Miscellaneous Test 09/27/17 09/27/17 09/27/17 21:18 21:19 23:28 WBC RBC Hgb Hct MCH RDW Lymph % (Auto) Parker % (Auto) Eos % (Auto) Lymph # Parker # Seg Neutrophils % Seg Neuts % (Manual) Monocytes % (Manual) Seg Neutrophils # POC ABG pH POC ABG pCO2 POC ABG pO2 Sodium Chloride Carbon Dioxide BUN Creatinine Glucose POC Glucose 251 H Calcium Total Creatine Kinase Troponin T C-Reactive Protein 34.90 H NT-Pro-B Natriuret Pep Triglycerides Cholesterol LDL Cholesterol Direct HDL Cholesterol Vancomycin Trough Miscellaneous Test Flexitest 1 H 09/27/17 09/28/17 09/28/17 23:49 07:00 07:00 WBC RBC 3.44 L Hgb 9.9 L Hct 29.6 L MCH RDW Lymph % (Auto) Parker % (Auto) Eos % (Auto) Lymph # 1.0 L Parker # Seg Neutrophils % 76.2 H Seg Neuts % (Manual) Monocytes % (Manual) Seg Neutrophils # POC ABG pH POC ABG pCO2 POC ABG pO2 Sodium 128 L Chloride 92.1 L Carbon Dioxide 20 L BUN 40 H Creatinine 3.1 H D Glucose 199 H POC Glucose 233 H Calcium 7.5 L Total Creatine Kinase Troponin T C-Reactive Protein NT-Pro-B Natriuret Pep Triglycerides Cholesterol LDL Cholesterol Direct HDL Cholesterol Vancomycin Trough Miscellaneous Test 09/28/17 09/28/17 09/28/17 07:00 08:03 13:31 WBC RBC Hgb Hct MCH RDW Lymph % (Auto) Parker % (Auto) Eos % (Auto) Lymph # Parker # Seg Neutrophils % Seg Neuts % (Manual) Monocytes % (Manual) Seg Neutrophils # POC ABG pH POC ABG pCO2 POC ABG pO2 Sodium Chloride Carbon Dioxide BUN Creatinine Glucose POC Glucose 165 H 237 H Calcium Total Creatine Kinase Troponin T C-Reactive Protein NT-Pro-B Natriuret Pep Triglycerides Cholesterol LDL Cholesterol Direct HDL Cholesterol Vancomycin Trough 36.3 H Miscellaneous Test 09/28/17 09/28/17 09/29/17 16:20 22:12 05:20 WBC RBC Hgb 11.4 L Hct 34.5 L MCH RDW Lymph % (Auto) 10.5 L Parker % (Auto) 9.1 H Eos % (Auto) Lymph # 0.5 L Parker # Seg Neutrophils % 75.8 H Seg Neuts % (Manual) Monocytes % (Manual) Seg Neutrophils # POC ABG pH POC ABG pCO2 POC ABG pO2 Sodium Chloride Carbon Dioxide BUN Creatinine Glucose POC Glucose 323 H 164 H Calcium Total Creatine Kinase Troponin T C-Reactive Protein NT-Pro-B Natriuret Pep Triglycerides Cholesterol LDL Cholesterol Direct HDL Cholesterol Vancomycin Trough Miscellaneous Test 09/29/17 09/29/17 09/29/17 05:20 07:53 16:21 WBC RBC Hgb Hct MCH RDW Lymph % (Auto) Parker % (Auto) Eos % (Auto) Lymph # Parker # Seg Neutrophils % Seg Neuts % (Manual) Monocytes % (Manual) Seg Neutrophils # POC ABG pH POC ABG pCO2 POC ABG pO2 Sodium 128 L Chloride 91.6 L Carbon Dioxide 21 L BUN 51 H Creatinine 3.8 H Glucose 161 H POC Glucose 128 H 141 H Calcium Total Creatine Kinase Troponin T C-Reactive Protein NT-Pro-B Natriuret Pep Triglycerides Cholesterol LDL Cholesterol Direct HDL Cholesterol Vancomycin Trough Miscellaneous Test 09/29/17 09/30/17 09/30/17 22:17 05:21 05:21 WBC RBC Hgb 10.3 L Hct 32.1 L MCH 27 L RDW Lymph % (Auto) 11.6 L Parker % (Auto) 9.3 H Eos % (Auto) 4.9 H Lymph # 0.8 L Parker # Seg Neutrophils % 73.6 H Seg Neuts % (Manual) Monocytes % (Manual) Seg Neutrophils # POC ABG pH POC ABG pCO2 POC ABG pO2 Sodium 127 L Chloride 90.9 L Carbon Dioxide BUN 52 H Creatinine 4.5 H Glucose 187 H POC Glucose 158 H Calcium 7.9 L Total Creatine Kinase Troponin T C-Reactive Protein NT-Pro-B Natriuret Pep Triglycerides Cholesterol LDL Cholesterol Direct HDL Cholesterol Vancomycin Trough Miscellaneous Test 09/30/17 09/30/17 09/30/17 07:47 11:55 21:44 WBC RBC Hgb Hct MCH RDW Lymph % (Auto) Parker % (Auto) Eos % (Auto) Lymph # Parker # Seg Neutrophils % Seg Neuts % (Manual) Monocytes % (Manual) Seg Neutrophils # POC ABG pH POC ABG pCO2 POC ABG pO2 Sodium Chloride Carbon Dioxide BUN Creatinine Glucose POC Glucose 137 H 184 H 141 H Calcium Total Creatine Kinase Troponin T C-Reactive Protein NT-Pro-B Natriuret Pep Triglycerides Cholesterol LDL Cholesterol Direct HDL Cholesterol Vancomycin Trough Miscellaneous Test 10/01/17 10/01/17 10/01/17 06:03 06:03 16:37 WBC RBC Hgb 11.3 L Hct 33.6 L MCH RDW Lymph % (Auto) 11.2 L Parker % (Auto) 10.2 H Eos % (Auto) Lymph # 1.1 L Parker # 1.0 H Seg Neutrophils % 74.5 H Seg Neuts % (Manual) Monocytes % (Manual) Seg Neutrophils # POC ABG pH POC ABG pCO2 POC ABG pO2 Sodium 130 L Chloride 92.3 L Carbon Dioxide BUN 53 H Creatinine 4.5 H Glucose POC Glucose 125 H Calcium 8.0 L Total Creatine Kinase Troponin T C-Reactive Protein NT-Pro-B Natriuret Pep Triglycerides Cholesterol LDL Cholesterol Direct HDL Cholesterol Vancomycin Trough Miscellaneous Test 10/01/17 10/01/17 10/02/17 20:41 21:47 06:21 WBC RBC Hgb 11.5 L Hct 34.5 L MCH RDW 15.3 H Lymph % (Auto) Parker % (Auto) 12.4 H Eos % (Auto) Lymph # 0.9 L Parker # Seg Neutrophils % 70.6 H Seg Neuts % (Manual) Monocytes % (Manual) Seg Neutrophils # POC ABG pH POC ABG pCO2 POC ABG pO2 Sodium Chloride Carbon Dioxide BUN Creatinine Glucose POC Glucose 115 H Calcium Total Creatine Kinase Troponin T C-Reactive Protein 7.60 H NT-Pro-B Natriuret Pep Triglycerides Cholesterol LDL Cholesterol Direct HDL Cholesterol Vancomycin Trough Miscellaneous Test 10/02/17 10/02/17 10/02/17 06:21 07:47 21:56 WBC RBC Hgb Hct MCH RDW Lymph % (Auto) Parker % (Auto) Eos % (Auto) Lymph # Parker # Seg Neutrophils % Seg Neuts % (Manual) Monocytes % (Manual) Seg Neutrophils # POC ABG pH POC ABG pCO2 POC ABG pO2 Sodium 133 L Chloride 92.7 L Carbon Dioxide BUN 51 H Creatinine 4.7 H Glucose 113 H POC Glucose 118 H 154 H Calcium 8.0 L Total Creatine Kinase Troponin T C-Reactive Protein NT-Pro-B Natriuret Pep Triglycerides Cholesterol LDL Cholesterol Direct HDL Cholesterol Vancomycin Trough Miscellaneous Test 10/03/17 10/03/17 10/03/17 06:13 06:13 16:50 WBC RBC Hgb 10.7 L Hct 31.9 L MCH RDW 15.6 H Lymph % (Auto) Parker % (Auto) Eos % (Auto) Lymph # Parker # Seg Neutrophils % Seg Neuts % (Manual) Monocytes % (Manual) Seg Neutrophils # POC ABG pH POC ABG pCO2 POC ABG pO2 Sodium 134 L Chloride 95.3 L Carbon Dioxide BUN 32 H Creatinine 3.7 H Glucose POC Glucose 126 H Calcium 7.8 L Total Creatine Kinase Troponin T C-Reactive Protein NT-Pro-B Natriuret Pep Triglycerides Cholesterol LDL Cholesterol Direct HDL Cholesterol Vancomycin Trough Miscellaneous Test 10/04/17 10/04/17 10/04/17 05:49 05:49 12:01 WBC RBC Hgb 10.8 L Hct 32.3 L MCH RDW 15.6 H Lymph % (Auto) Parker % (Auto) Eos % (Auto) Lymph # Parker # Seg Neutrophils % Seg Neuts % (Manual) 72.0 H Monocytes % (Manual) 9.0 H Seg Neutrophils # POC ABG pH POC ABG pCO2 POC ABG pO2 Sodium 133 L Chloride 93.7 L Carbon Dioxide BUN 23 H Creatinine 3.2 H Glucose POC Glucose 140 H Calcium 7.8 L Total Creatine Kinase Troponin T C-Reactive Protein NT-Pro-B Natriuret Pep Triglycerides Cholesterol LDL Cholesterol Direct HDL Cholesterol Vancomycin Trough Miscellaneous Test 10/04/17 10/04/17 10/05/17 17:35 20:44 05:34 WBC RBC 5.17 H Hgb Hct MCH 27 L RDW 15.5 H Lymph % (Auto) Parker % (Auto) 13.6 H Eos % (Auto) Lymph # Parker # 0.9 H Seg Neutrophils % Seg Neuts % (Manual) Monocytes % (Manual) Seg Neutrophils # POC ABG pH POC ABG pCO2 POC ABG pO2 Sodium Chloride Carbon Dioxide BUN Creatinine Glucose POC Glucose 143 H 135 H Calcium Total Creatine Kinase Troponin T C-Reactive Protein NT-Pro-B Natriuret Pep Triglycerides Cholesterol LDL Cholesterol Direct HDL Cholesterol Vancomycin Trough Miscellaneous Test 10/05/17 10/05/17 10/05/17 05:34 12:34 21:29 WBC RBC Hgb Hct MCH RDW Lymph % (Auto) Parker % (Auto) Eos % (Auto) Lymph # Parker # Seg Neutrophils % Seg Neuts % (Manual) Monocytes % (Manual) Seg Neutrophils # POC ABG pH POC ABG pCO2 POC ABG pO2 Sodium 132 L Chloride 92.7 L Carbon Dioxide BUN 36 H Creatinine 3.7 H Glucose POC Glucose 161 H 191 H Calcium 7.8 L Total Creatine Kinase Troponin T C-Reactive Protein NT-Pro-B Natriuret Pep Triglycerides Cholesterol LDL Cholesterol Direct HDL Cholesterol Vancomycin Trough Miscellaneous Test 10/06/17 10/06/17 10/06/17 05:50 05:50 13:14 WBC RBC Hgb 10.6 L D Hct 32.4 L D MCH RDW 15.5 H Lymph % (Auto) Parker % (Auto) 15.6 H Eos % (Auto) Lymph # Parker # 1.2 H Seg Neutrophils % Seg Neuts % (Manual) Monocytes % (Manual) Seg Neutrophils # POC ABG pH POC ABG pCO2 POC ABG pO2 Sodium 131 L Chloride 91.9 L Carbon Dioxide BUN 27 H Creatinine 3.0 H Glucose 140 H POC Glucose 162 H Calcium 7.9 L Total Creatine Kinase Troponin T C-Reactive Protein NT-Pro-B Natriuret Pep Triglycerides Cholesterol LDL Cholesterol Direct HDL Cholesterol Vancomycin Trough Miscellaneous Test 10/06/17 10/06/17 15:54 21:48 WBC RBC Hgb Hct MCH RDW Lymph % (Auto) Parker % (Auto) Eos % (Auto) Lymph # Parker # Seg Neutrophils % Seg Neuts % (Manual) Monocytes % (Manual) Seg Neutrophils # POC ABG pH POC ABG pCO2 POC ABG pO2 Sodium Chloride Carbon Dioxide BUN Creatinine Glucose POC Glucose 194 H 190 H Calcium Total Creatine Kinase Troponin T C-Reactive Protein NT-Pro-B Natriuret Pep Triglycerides Cholesterol LDL Cholesterol Direct HDL Cholesterol Vancomycin Trough Miscellaneous Test
[2017-10-07] MEDS: LOPRESSOR PO SCH ×4 (06:24→21:06)
[2017-10-07] MEDS: APRESOLINE PO SCH ×3 (06:24→21:06)
[2017-10-07 06:27] LABS: Basophils % (Auto) 0.3 % (0.0-1.8); Eosinophils # (Auto) 0.2 K/mm3 (0.0-0.4); Eosinophils % (Auto) 1.8 % (0.0-4.3); Hemoglobin 11.3 gm/dl (11.8-15.2); Lymphocytes # (Auto) 1.4 K/mm3 (1.2-5.4); Mean Corpuscular HGB Conc 33 % (32-34); Mean Corpuscular Hemoglobin 28 pg (28-32); Mean Corpuscular Volume 84 fl (84-94); Monocytes # (Auto) 1.1 K/mm3 (0.0-0.8); Monocytes % (Auto) 13.4 % (0.0-7.3); Platelet Count 374 K/mm3 (140-440); Red Blood Count 4.03 M/mm3 (3.65-5.03); Red Cell Distribution Width 15.3 % (13.2-15.2)
[2017-10-07 06:43] LABS: Calcium 8.1 mg/dL (8.4-10.2)
[2017-10-07 06:48] LABS: Alanine Aminotransferase 32 units/L (7-56); Albumin 2.8 g/dL (3.9-5)
[2017-10-07 06:53] LABS: Bilirubin,Direct < 0.2 mg/dL (0-0.2)
--- NOTE | 2017-10-07 10:02 | Progress Note ---
Assessment and Plan - Patient Problems (1) Bilateral pneumonia Current Visit: Yes Status: Acute Qualifiers: Pneumonia type: due to unspecified organism Lung location: unspecified part of lung Qualified Code(s): J18.9 - Pneumonia, unspecified organism Plan to address problem: On Levaquin and zyvox As per primary team (2) Acute renal failure (ARF) Current Visit: Yes Status: Acute Plan to address problem: Renal function reviewed, SCr level was 3.3 today, yesterday's SCr level was 3.0 24 hour urine for creatinine clearance in progress, scheduled to be done around 1700 today No acute indication for HD today Assess need for HD on daily basis Renally dose medications Obtain daily weight Lyles Catheter: No Strict intake and output Renal plan discussed with Dr Flores Continue supportive therapy (3) Hyponatremia Current Visit: Yes Status: Acute Plan to address problem: Labs reviewed, serum sodium level 134 today, yesterday's serum sodium level was 131 Maintain fluid restriction of 750 ml per day On Lasix 40 mg orally once daily Hold off on HD today (4) Systolic heart failure Current Visit: Yes Status: Acute Plan to address problem: Cardiology on board, EF 10-15%, ordered MAYKEL for evaluation of cardioembolic source, follow up recs (5) CVA (cerebral vascular accident) Current Visit: Yes Status: Acute Plan to address problem: Neurology on board, stroke in medial occipital and medial temporal lobe, [employer] OPER[employer] left sided clot on MRA of head, MAYKEL pending, follow up recs (6) Diabetes mellitus type 2, insulin dependent Current Visit: No Status: Acute Plan to address problem: On insulin As per primary team Subjective Date of service: 10/07/17 Principal diagnosis: stroke Interval history: Patient reports feeling a lot better today, no complaints voiced. Patient reports urinating without difficulty. No family at bedside at time of my examination. Objective - Vital Signs Vital signs: Vital Signs - 12hr 10/06/17 10/06/17 10/07/17 22:00 23:19 00:05 Temperature 99.1 F Pulse Rate 117 H 122 H Respiratory 20 22 18 Rate Blood Pressure 136/101 O2 Sat by Pulse 95 86 Oximetry 10/07/17 10/07/17 05:41 08:24 Temperature 98.3 F Pulse Rate 115 H Respiratory 18 Rate Blood Pressure 130/93 O2 Sat by Pulse 89 93 Oximetry - General Appearance General appearance: well-developed (no acute distress) EENT: ATNC, other (visual impairment from peripheral vision from right eye) Neck: no JVD Respiratory: Present: Other (Lung sounds decreased bilaterally, unlabored) Cardiology: regular, S1S2, other (ACCESS: Right IJ Vas Catheter intact) Gastrointestinal: normoactive bowel sounds, no tenderness Integumentary: warm and dry Neurologic: alert and oriented x3 (moves all 4 extremities, equal strength bilaterally, right peripheral vision impairment) Musculoskeletal: other (no edema to both lower extremities) Psychiatric: mood/affect appropriate, cooperative - Lab 10/07/17 05:32 10/07/17 05:32 Most recent lab results Calcium 8.1 mg/dL (8.4-10.2) L 10/07/17 05:32 Phosphorus 4.10 mg/dL (2.5-4.5) 10/07/17 05:32 Magnesium 1.70 mg/dL (1.7-2.3) 09/26/17 05:35
[2017-10-07] MEDS: NOVOLOG SUB-Q SCH ×5 (10:26→23:16)
[2017-10-07] MEDS: LOVENOX SUB-Q SCH (11:42)
[2017-10-07] MEDS: PROTONIX PO SCH (11:42)
[2017-10-07] MEDS: ZYVOX PO SCH ×3 (11:42→23:18)
[2017-10-07] MEDS: BABY ASPIRIN PO SCH (11:42)
--- NOTE | 2017-10-07 12:14 | Progress Note ---
Assessment and Plan Acute CVA Pneumonia Chronic systolic heart failure Acute renal failure initiated on dialysis Cardiomyopathy, etiology unclear EF 10-15% on echocardiogram. Diabetes Hypertension Hyperlipidemia Recommendations: We will reschedule MAYKEL for thursday (not done today due to patient not being NPO and having eaten breakfast) Please make sure that patient in NPO after midnight on for MAYKEL on thursday Advise systemic anticoagulation given CVA in the setting of dilated cardiomyopathy. Will defer to neurology decision of when to initiate anticoagulation safely. Further ischemic cardiac workup with a cardiac cath before discharge. Subjective Date of service: 10/07/17 Principal diagnosis: stroke Interval history: MAYKEL today was cancelled due to patient not being NPO Objective Vital Signs Temp Pulse Resp BP Pulse Ox 10/07/17 10:00 111 H 10/07/17 08:35 98.5 F 116 H 18 133/98 95 10/07/17 08:24 93 10/07/17 05:41 98.3 F 115 H 18 130/93 89 10/07/17 00:05 99.1 F 122 H 18 136/101 86 10/06/17 23:19 117 H 22 95 10/06/17 22:00 20 10/06/17 21:07 76 10/06/17 20:07 99.0 F 121 H 20 120/85 93 10/06/17 19:58 95 10/06/17 15:50 98.4 F 117 H 18 133/96 96 10/06/17 13:05 97.9 F 20 128/85 - Physical Examination General: No Apparent Distress HEENT: Positive: PERRL Neck: Positive: neck supple, trachea midline Cardiac: Positive: Tachycardia Lungs: Positive: Normal Exam Neuro: Positive: Grossly Intact Abdomen: Positive: Soft Skin: Positive: Clear Extremities: Absent: edema - Labs and Meds Cardiac Enzymes 10/07/17 Range/Units 05:32 AST 21 (5-40) units/L CBC 10/07/17 Range/Units 05:32 WBC 8.5 (4.5-11.0) K/mm3 RBC 4.03 (3.65-5.03) M/mm3 Hgb 11.3 L (11.8-15.2) gm/dl Hct 34.0 L (35.5-45.6) % Plt Count 374 (140-440) K/mm3 Lymph # 1.4 (1.2-5.4) K/mm3 [place] # 1.1 H (0.0-0.8) K/mm3 Eos # 0.2 (0.0-0.4) K/mm3 Baso # 0.0 (0.0-0.1) K/mm3 Comprehensive Metabolic Panel 10/07/17 10/07/17 Range/Units 05:32 05:32 Sodium 134 L (137-145) mmol/L Potassium 4.3 (3.6-5.0) mmol/L Chloride 95.7 L (98-107) mmol/L Carbon Dioxide 24 (22-30) mmol/L BUN 35 H (9-20) mg/dL Creatinine 3.3 H (0.8-1.5) mg/dL Glucose 101 H (75-100) mg/dL Calcium 8.1 L (8.4-10.2) mg/dL Direct Bilirubin < 0.2 (0-0.2) mg/dL AST 21 (5-40) units/L ALT 32 (7-56) units/L Alkaline Phosphatase 119 (35-129) units/L Total Protein 7.2 (6.3-8.2) g/dL Albumin 2.8 L (3.9-5) g/dL - Imaging and Cardiology EKG: image reviewed
--- NOTE | 2017-10-07 12:23 | Progress Note ---
Assessment and Plan Assessment: 1) Sepsis: resolved. Etiology most likely bilateral pneumonia. -blood cultures 09/22 ngtd -CRP = 34.90 --> 7.6 -Procal 6.7 -Viral hepatitis panel negative -HIV non reactive 2) Bilateral pneumonia: ? post-influenza pneumonia ? CAP ?HAP on top of CHF exacerbation -s/p tamiflu x 5 days 3) CHF exaceration 4) Hyponatremia; resolving 5) DM-uncontrolled 6) Acute respiratory failure 7)LEÓN: resolving -now on HD Plan: -follow up Legionella urine antigen, Streptococcus pneumoniae urine antigen - pending -continue zyvox 600 q 12 hrs day 9 of 10 -stop levaquin -continue to monitor creatinine -branch operation evaluation manager following Thank you for the consult DWAINE Almonte for Dr. Ondina Arndt MD Infectious Diseases Specialist [facility] ([facility]) M [phone] O [phone] Subjective Date of service: 10/07/17 Principal diagnosis: stroke Interval history: I feel so much better, no fever Microbiology: Blood cultures: 09/22 ngtd 09/10 negative Urine cultures: Respiratory cultures: Current Antimicrobials: Levaquin 09/28 zyvox 09/29 Previous Antimicrobials: Zosyn 09/23 Vanco 09/23 Tamiflu 09/27 Objective - Exam Narrative Exam: General appearance: Alert in NAD, conversant Eyes: anicteric sclerae, moist conjunctivae; no lid-lag; PERRLA HENT: Atraumatic; oropharynx clear with moist mucous membranes and no mucosal ulcerations/no oral thrush; Neck: Trachea midline; supple, no thyromegaly or lymphadenopathy Lungs: diminish in bilateral lung bases, SOB CV: RRR, no murmurs Abdomen: Soft, non-tender; +BS x 4 Extremities: No peripheral edema or extremity lymphadenopathy Skin: Normal temperature, turgor and texture; no rash, ulcers or subcutaneous nodules Psych: Appropriate affect, cooperative Neuro: alert and oriented x 3. Moving all extermities Lines: No CVL / PICC - Constitutional Vitals: Vital Signs Temp Pulse Resp BP Pulse Ox 98.5 F 111 H 18 133/98 95 10/07/17 08:35 10/07/17 10:00 10/07/17 08:35 10/07/17 08:35 10/07/17 08:35 Temperature -Last 24 Hours Temperature 98.5 F Temperature 98.3 F Temperature 99.1 F Temperature 99.0 F Temperature 98.4 F Temperature 97.9 F - Labs CBC & Chem 7: 10/07/17 05:32 10/07/17 05:32 Labs: Abnormal lab results 10/06/17 10/06/17 10/06/17 Range/Units 13:14 15:54 21:48 Hgb (11.8-15.2) gm/dl Hct (35.5-45.6) % RDW (13.2-15.2) % Swain % (Auto) (0.0-7.3) % Swain # (0.0-0.8) K/mm3 Sodium (137-145) mmol/L Chloride (98-107) mmol/L BUN (9-20) mg/dL Creatinine (0.8-1.5) mg/dL Glucose (75-100) mg/dL POC Glucose 162 H 194 H 190 H (70-105) Calcium (8.4-10.2) mg/dL Albumin (3.9-5) g/dL 10/07/17 10/07/17 10/07/17 Range/Units 05:32 05:32 05:32 Hgb 11.3 L (11.8-15.2) gm/dl Hct 34.0 L (35.5-45.6) % RDW 15.3 H (13.2-15.2) % Swain % (Auto) 13.4 H (0.0-7.3) % Swain # 1.1 H (0.0-0.8) K/mm3 Sodium 134 L (137-145) mmol/L Chloride 95.7 L (98-107) mmol/L BUN 35 H (9-20) mg/dL Creatinine 3.3 H (0.8-1.5) mg/dL Glucose 101 H (75-100) mg/dL POC Glucose (70-105) Calcium 8.1 L (8.4-10.2) mg/dL Albumin 2.8 L (3.9-5) g/dL
--- NOTE | 2017-10-07 13:42 | Progress Note ---
Assessment and Plan Assessment and plan: Acute hypoxic respiratory failure -BIPAP as clinically indicated -Etiology secondary to bilateral pneumonia Acute Renal failure -Patient received hemodialysis on 10/02/17 and 10/03/17 -Assess need for HD on daily basis as per Nephrology -Avoid Nephrotoxic agents -Renally dose medications -Obtain daily weights -Monitor intake and output -Monitor renal function closely -Renal ultrasound showed no hydronephrosis -Nephrology following Sepsis -Etiology secondary to pneumonia. -follow up Legionella urine antigen, Streptococcus pneumoniae urine antigen -Blood cultures thus far negative. -continue abx per ID Bilateral pneumonia - On IV antibiotics , Levaquin and Zyvox - Pulmonary consult appreciated Cardiomyopathy - EF of 10-15%, systolic dysfunction - continue with CHF medications -Patient previously on milrinone drip per cardiology - Cardiology following - Lexiscan stress test to be done once stable. NSVT -Patient had run of V. tach -Consider ICD as outpatient per cardiology Acute on chronic systolic heart failure. -Continue aggressive medical therapy with IV milrinone and IV diuresis. Hyponatremia -Fluid restriction of 750ml per day -Follow BMP DM with hyperglycemia - SSI and basal insulin Acute ischemic stroke left occipital lobe. On Aspirin Neurology following Right homonymous visual field defect -Neuro following. -Ophthalmology outpatient follow-up DVT prophylaxis - On lovenox - patient is not stable enough to transfer to [facility]. Disposition. -Continue inpatient management. [phone] , [place] number to arrange for follow-up at the time of discharge. History Interval history: Right visual field defect No chest pain, No SOB Hospitalist Physical - Physical exam Narrative exam: GEN APPEARANCE : Not in acute distress,obese HEENT: Normocephalic, Atraumatic NECK : supple, no JVD LUNGS: Clear to auscultation bilaterally, no rales, no wheeze HEART: S1 and S2 regular, no murmurs, rubs or gallop, ABD: Soft, non tender, non distended, normal bowel sounds EXT:No edema, no clubbing, no cyanosis NEURO: Awake, alert,oriented x 3, right visual field defect - Constitutional Vitals: Temp Pulse Resp BP Pulse Ox 98.3 F 121 H 18 119/81 89 10/07/17 12:32 10/07/17 12:33 10/07/17 12:32 10/07/17 12:32 10/07/17 12:33 Results - Labs CBC & Chem 7: 10/08/17 04:59 10/08/17 04:59 Labs: Laboratory Last Values WBC 8.5 K/mm3 (4.5-11.0) 10/07/17 05:32 RBC 4.03 M/mm3 (3.65-5.03) 10/07/17 05:32 Hgb 11.3 gm/dl (11.8-15.2) L 10/07/17 05:32 Hct 34.0 % (35.5-45.6) L 10/07/17 05:32 MCV 84 fl (84-94) 10/07/17 05:32 MCH 28 pg (28-32) 10/07/17 05:32 MCHC 33 % (32-34) 10/07/17 05:32 RDW 15.3 % (13.2-15.2) H 10/07/17 05:32 Plt Count 374 K/mm3 (140-440) 10/07/17 05:32 Lymph % (Auto) 16.0 % (13.4-35.0) 10/07/17 05:32 [place] % (Auto) 13.4 % (0.0-7.3) H 10/07/17 05:32 Eos % (Auto) 1.8 % (0.0-4.3) 10/07/17 05:32 Baso % (Auto) 0.3 % (0.0-1.8) 10/07/17 05:32 Lymph # 1.4 K/mm3 (1.2-5.4) 10/07/17 05:32 [place] # 1.1 K/mm3 (0.0-0.8) H 10/07/17 05:32 Eos # 0.2 K/mm3 (0.0-0.4) 10/07/17 05:32 Baso # 0.0 K/mm3 (0.0-0.1) 10/07/17 05:32 Add Manual Diff Complete 10/04/17 05:49 Total Counted 100 10/04/17 05:49 Seg Neutrophils % 68.5 % (40.0-70.0) 10/07/17 05:32 Seg Neuts % (Manual) 72.0 % (40.0-70.0) H 10/04/17 05:49 Band Neutrophils % 0 % 10/04/17 05:49 Lymphocytes % (Manual) 17.0 % (13.4-35.0) 10/04/17 05:49 Reactive Lymphs % (Man) 0 % 10/04/17 05:49 Monocytes % (Manual) 9.0 % (0.0-7.3) H 10/04/17 05:49 Eosinophils % (Manual) 2.0 % (0.0-4.3) 10/04/17 05:49 Basophils % (Manual) 0 % (0.0-1.8) 10/04/17 05:49 Metamyelocytes % 0 % 10/04/17 05:49 Myelocytes % 0 % 10/04/17 05:49 Promyelocytes % 0 % 10/04/17 05:49 Blast Cells % 0 % 10/04/17 05:49 Nucleated RBC % Not Reportable 10/04/17 05:49 Seg Neutrophils # 5.8 K/mm3 (1.8-7.7) 10/07/17 05:32 Seg Neutrophils # Man 5.3 K/mm3 (1.8-7.7) 10/04/17 05:49 Band Neutrophils # 0.0 K/mm3 10/04/17 05:49 Lymphocytes # (Manual) 1.3 K/mm3 (1.2-5.4) 10/04/17 05:49 Abs React Lymphs (Man) 0.0 K/mm3 10/04/17 05:49 Monocytes # (Manual) 0.7 K/mm3 (0.0-0.8) 10/04/17 05:49 Eosinophils # (Manual) 0.1 K/mm3 (0.0-0.4) 10/04/17 05:49 Basophils # (Manual) 0.0 K/mm3 (0.0-0.1) 10/04/17 05:49 Metamyelocytes # 0.0 K/mm3 10/04/17 05:49 Myelocytes # 0.0 K/mm3 10/04/17 05:49 Promyelocytes # 0.0 K/mm3 10/04/17 05:49 Blast Cells # 0.0 K/mm3 10/04/17 05:49 WBC Morphology Not Reportable 10/04/17 05:49 Hypersegmented Neuts Not Reportable 10/04/17 05:49 Hyposegmented Neuts Not Reportable 10/04/17 05:49 Hypogranular Neuts Not Reportable 10/04/17 05:49 Smudge Cells Not Reportable 10/04/17 05:49 Toxic Granulation Not Reportable 10/04/17 05:49 Toxic Vacuolation Not Reportable 10/04/17 05:49 Dohle Bodies Not Reportable 10/04/17 05:49 Pelger-Huet Anomaly Not Reportable 10/04/17 05:49 Diaz Rods Not Reportable 10/04/17 05:49 Platelet Estimate Appears normal 10/04/17 05:49 Clumped Platelets Not Reportable 10/04/17 05:49 Plt Clumps, EDTA Not Reportable 10/04/17 05:49 Large Platelets Not Reportable 10/04/17 05:49 Giant Platelets Not Reportable 10/04/17 05:49 Platelet Satelliting Not Reportable 10/04/17 05:49 Plt Morphology Comment Not Reportable 10/04/17 05:49 RBC Morphology Not Reportable 10/04/17 05:49 Dimorphic RBCs Not Reportable 10/04/17 05:49 Polychromasia Few 10/04/17 05:49 Hypochromasia Not Reportable 10/04/17 05:49 Poikilocytosis Not Reportable 10/04/17 05:49 Anisocytosis 1+ 10/04/17 05:49 Microcytosis Not Reportable 10/04/17 05:49 Macrocytosis Not Reportable 10/04/17 05:49 Spherocytes Not Reportable 10/04/17 05:49 Pappenheimer Bodies Not Reportable 10/04/17 05:49 Sickle Cells Not Reportable 10/04/17 05:49 Target Cells Not Reportable 10/04/17 05:49 Tear Drop Cells Not Reportable 10/04/17 05:49 Ovalocytes Not Reportable 10/04/17 05:49 Helmet Cells Not Reportable 10/04/17 05:49 Guzmán-Maroa Bodies Not Reportable 10/04/17 05:49 Coolin Rings Not Reportable 10/04/17 05:49 [place] Cells Not Reportable 10/04/17 05:49 Bite Cells Not Reportable 10/04/17 05:49 Crenated Cell Not Reportable 10/04/17 05:49 Elliptocytes Not Reportable 10/04/17 05:49 Acanthocytes (Spur) Not Reportable 10/04/17 05:49 Rouleaux Not Reportable 10/04/17 05:49 Hemoglobin C Crystals Not Reportable 10/04/17 05:49 Schistocytes Not Reportable 10/04/17 05:49 Malaria parasites Not Reportable 10/04/17 05:49 Dash Bodies Not Reportable 10/04/17 05:49 Hem Pathologist Commnt No 10/04/17 05:49 POC ABG pH 7.459 (7.35-7.45) H 09/23/17 15:04 POC ABG pCO2 34.8 (35-45) L 09/23/17 15:04 POC ABG pO2 54 (80-105) L 09/23/17 15:04 POC ABG HCO3 24.7 09/23/17 15:04 POC ABG Total CO2 26 09/23/17 15:04 POC ABG O2 Sat 89 09/23/17 15:04 POC ABG Base Excess 1 09/23/17 15:04 FiO2 21 % 09/23/17 15:04 Sodium 134 mmol/L (137-145) L 10/07/17 05:32 Potassium 4.3 mmol/L (3.6-5.0) 10/07/17 05:32 Chloride 95.7 mmol/L (98-107) L 10/07/17 05:32 Carbon Dioxide 24 mmol/L (22-30) 10/07/17 05:32 Anion Gap 19 mmol/L 10/07/17 05:32 BUN 35 mg/dL (9-20) H 10/07/17 05:32 Creatinine 3.3 mg/dL (0.8-1.5) H 10/07/17 05:32 Estimated GFR 25 ml/min 10/07/17 05:32 BUN/Creatinine Ratio 11 % 10/07/17 05:32 Glucose 101 mg/dL (75-100) H 10/07/17 05:32 POC Glucose 190 (70-105) H 10/06/17 21:48 Osmolality 299 Mosm/kg 09/30/17 05:21 Calcium 8.1 mg/dL (8.4-10.2) L 10/07/17 05:32 Phosphorus 4.10 mg/dL (2.5-4.5) 10/07/17 05:32 Magnesium 1.70 mg/dL (1.7-2.3) 09/26/17 05:35 Total Bilirubin 0.40 mg/dL (0.1-1.2) 10/07/17 05:32 Direct Bilirubin < 0.2 mg/dL (0-0.2) 10/07/17 05:32 AST 21 units/L (5-40) 10/07/17 05:32 ALT 32 units/L (7-56) 10/07/17 05:32 Alkaline Phosphatase 119 units/L (35-129) 10/07/17 05:32 Total Creatine Kinase 170 units/L (55-170) 09/23/17 04:10 CK-MB (CK-2) 1.4 ng/mL (0.0-4.0) 09/23/17 04:10 CK-MB (CK-2) Rel Index 0.8 (0-4) 09/23/17 04:10 Troponin T 0.287 ng/mL (0.00-0.029) H* 09/23/17 04:10 C-Reactive Protein 7.60 mg/dL (0.00-1.30) H 10/01/17 20:41 NT-Pro-B Natriuret Pep 5093 pg/mL (0-450) H 09/22/17 21:31 Total Protein 7.2 g/dL (6.3-8.2) 10/07/17 05:32 Albumin 2.8 g/dL (3.9-5) L 10/07/17 05:32 Albumin/Globulin Ratio 0.6 % 10/07/17 05:32 Triglycerides 226 mg/dL (2-149) H 09/22/17 21:31 Cholesterol 235 mg/dL (50-199) H 09/22/17 21:31 LDL Cholesterol Direct 164 mg/dL (50-130) H 09/22/17 21:31 HDL Cholesterol 26 mg/dL (40-59) L 09/22/17 21:31 Cholesterol/HDL Ratio 9.03 % 09/22/17 21:31 Urine Eosinophils None seen (None Seen) 09/29/17 Unknown Vancomycin Trough 36.3 ug/mL (5.0-20.0) H 09/28/17 07:00 Hepatitis A IgM Ab Non-reactive (NonReactive) 10/02/17 17:35 Hep Bs Antigen Non-reactive (Negative) 10/02/17 17:35 Hep B Core IgM Ab Non-reactive (NonReactive) 10/02/17 17:35 Hepatitis C Antibody Non-reactive (NonReactive) 10/02/17 17:35 HIV-1 RNA PCR copies/ml TNR 09/27/17 21:18 HIV-1 RNA (PCR) log TNR 09/27/17 21:18 HIV 1&2 Antibody Rapid Non react (Non React) 09/27/17 21:18 HIV P24 Antigen Non react (Non React) 09/27/17 21:18 Miscellaneous Test Flexitest 1 H 09/27/17 21:19
--- NOTE | 2017-10-07 16:50 | Progress Note ---
Assessment and Plan Acute hypoxemic respiratory failure Bilateral infiltrates, pneumonia Sepsis Hyponatremia Diabetes, poorly controlled Morbid obesity Systolic heart failure, EF 15% Tobacco abuse disorder Acute Renal failure -Patient with Vas-Cath placed yesterday and hemodialysis initiated. HD again today for clearance and volume removal -Assess need for HD on daily basis -Avoid Nephrotoxic agents -Renally dose medications -Obtain daily weights -Monitor intake and output -Monitor renal function closely -Renal ultrasound showed no hydronephrosis -Nephrology following -Supplemental oxygen to keep O2 sats>90% -NIPPV prn -Supplemental oxygen to keep O2 sats>90% -Antibiotics per ID -- risks outweigh likely benefits from bronchoscopy at this time, optimize then plan for out patient bronchoscopy -Heart failure measures, fluid restriction, cardioprotective measures -Milrirone per cardiology -VTE prophylaxis -ABG prn - Smoking cessation counselling done again -Nicotine withdrawal precautions -Outpatient sleep study Subjective Date of service: 10/07/17 Principal diagnosis: stroke Interval history: Patient is seen today for: Acute Hypoxemic Resp Failure; Bilateral Pulmonary Infiltrates; HFrEF Seen and examined at bedside; 24hour events reviewed; nursing and respiratory care staff consulted; no adverse overnight events reported to me; resting in bed ; feels better; on 2L NC; denies acute chest pains; + cough no hemoptysis; No N/ V/F/C Hemodialysis catheter was placed and HD initiated. Objective - Exam Narrative Exam: General appearance: Alert in NAD, conversant Eyes: anicteric sclerae, moist conjunctivae; no lid-lag; PERRLA HENT: Atraumatic; oropharynx clear with moist mucous membranes and no mucosal ulcerations/no oral thrush; Neck: Trachea midline; supple, no thyromegaly or lymphadenopathy Lungs: diminish in bilateral lung bases, SOB CV: RRR, no murmurs Abdomen: Soft, non-tender; +BS x 4 Extremities: No peripheral edema or extremity lymphadenopathy Skin: Normal temperature, turgor and texture; no rash, ulcers or subcutaneous nodules Psych: Appropriate affect, cooperative Neuro: alert and oriented x 3. Moving all extermities Lines: No CVL / PICC Vital Signs - 12hr 10/07/17 10/07/17 10/07/17 05:41 08:24 08:35 Temperature 98.3 F 98.5 F Pulse Rate 115 H 116 H Respiratory 18 18 Rate Blood Pressure 130/93 133/98 O2 Sat by Pulse 89 93 95 Oximetry 10/07/17 10/07/17 10/07/17 10:00 12:32 12:33 Temperature 98.3 F Pulse Rate 111 H 121 H 121 H Respiratory 18 Rate Blood Pressure 119/81 O2 Sat by Pulse 91 89 Oximetry Constitutional: no acute distress, alert Eyes: non-icteric ENT: oropharynx moist, other (No thyromegaly) Neck: supple, no lymphadenopathy, no JVD Effort: mildly labored Ascultation: Bilateral: diminished breath sounds, rales (bases) Percussion: Bilateral: not dull Cardiovascular: regular rate and rhythm, murmur noted, other (no rubs) Gastrointestinal: normoactive bowel sounds, soft, non-tender Integumentary: normal Extremities: no cyanosis, pulses normal, no ischemia or petechiae, edema Neurologic: normal mental status, non-focal exam, pupils equal and round, CN II- XII normal Psychiatric: mood appropriate, affect normal CBC and BMP: 10/07/17 05:32 10/07/17 05:32 ABG, PT/INR, D-dimer: ABG POC ABG pH 7.459 (7.35-7.45) H 09/23/17 15:04 POC ABG pCO2 34.8 (35-45) L 09/23/17 15:04 POC ABG pO2 54 (80-105) L 09/23/17 15:04 POC ABG HCO3 24.7 09/23/17 15:04 POC ABG Total CO2 26 09/23/17 15:04 POC ABG O2 Sat 89 09/23/17 15:04 Abnormal lab findings: Abnormal Labs 09/22/17 09/22/17 09/22/17 21:30 21:31 21:31 WBC RBC Hgb Hct MCH RDW 15.3 H Lymph % (Auto) [place] % (Auto) 9.6 H Eos % (Auto) Lymph # [place] # 0.9 H Seg Neutrophils % 72.0 H Seg Neuts % (Manual) Monocytes % (Manual) Seg Neutrophils # POC ABG pH POC ABG pCO2 POC ABG pO2 Sodium Chloride Carbon Dioxide BUN Creatinine Glucose POC Glucose Calcium Total Creatine Kinase 371 H Troponin T 0.260 H* C-Reactive Protein NT-Pro-B Natriuret Pep 5093 H Albumin Triglycerides 226 H Cholesterol 235 H LDL Cholesterol Direct 164 H HDL Cholesterol 26 L Vancomycin Trough Miscellaneous Test 09/22/17 09/22/17 09/23/17 22:54 22:54 04:00 WBC RBC Hgb Hct MCH RDW Lymph % (Auto) [place] % (Auto) 11.9 H Eos % (Auto) Lymph # [place] # Seg Neutrophils % Seg Neuts % (Manual) Monocytes % (Manual) Seg Neutrophils # POC ABG pH POC ABG pCO2 POC ABG pO2 Sodium 129 L Chloride 91.6 L Carbon Dioxide BUN Creatinine 0.7 L Glucose 256 H POC Glucose Calcium 7.9 L Total Creatine Kinase 211 H Troponin T 0.344 H* D C-Reactive Protein NT-Pro-B Natriuret Pep Albumin Triglycerides Cholesterol LDL Cholesterol Direct HDL Cholesterol Vancomycin Trough Miscellaneous Test 09/23/17 09/23/17 09/23/17 04:00 04:10 09:09 WBC RBC Hgb Hct MCH RDW Lymph % (Auto) [place] % (Auto) Eos % (Auto) Lymph # [place] # Seg Neutrophils % Seg Neuts % (Manual) Monocytes % (Manual) Seg Neutrophils # POC ABG pH POC ABG pCO2 POC ABG pO2 Sodium 136 L D Chloride 95.3 L Carbon Dioxide BUN Creatinine Glucose 181 H POC Glucose 166 H Calcium 7.7 L Total Creatine Kinase Troponin T 0.287 H* C-Reactive Protein NT-Pro-B Natriuret Pep Albumin Triglycerides Cholesterol LDL Cholesterol Direct HDL Cholesterol Vancomycin Trough Miscellaneous Test 09/23/17 09/23/17 09/23/17 11:40 13:19 15:04 WBC RBC Hgb Hct MCH RDW Lymph % (Auto) [place] % (Auto) Eos % (Auto) Lymph # [place] # Seg Neutrophils % Seg Neuts % (Manual) Monocytes % (Manual) Seg Neutrophils # POC ABG pH 7.459 H POC ABG pCO2 34.8 L POC ABG pO2 54 L Sodium Chloride Carbon Dioxide BUN Creatinine Glucose POC Glucose 221 H 267 H Calcium Total Creatine Kinase Troponin T C-Reactive Protein NT-Pro-B Natriuret Pep Albumin Triglycerides Cholesterol LDL Cholesterol Direct HDL Cholesterol Vancomycin Trough Miscellaneous Test 09/23/17 09/23/17 09/24/17 15:57 22:07 04:40 WBC RBC Hgb Hct MCH RDW Lymph % (Auto) [place] % (Auto) 11.4 H Eos % (Auto) Lymph # [place] # Seg Neutrophils % Seg Neuts % (Manual) Monocytes % (Manual) Seg Neutrophils # POC ABG pH POC ABG pCO2 POC ABG pO2 Sodium Chloride Carbon Dioxide BUN Creatinine Glucose POC Glucose 281 H 166 H Calcium Total Creatine Kinase Troponin T C-Reactive Protein NT-Pro-B Natriuret Pep Albumin Triglycerides Cholesterol LDL Cholesterol Direct HDL Cholesterol Vancomycin Trough Miscellaneous Test 09/24/17 09/24/17 09/24/17 04:40 08:42 12:17 WBC RBC Hgb Hct MCH RDW Lymph % (Auto) [place] % (Auto) Eos % (Auto) Lymph # [place] # Seg Neutrophils % Seg Neuts % (Manual) Monocytes % (Manual) Seg Neutrophils # POC ABG pH POC ABG pCO2 POC ABG pO2 Sodium 133 L Chloride 95.6 L Carbon Dioxide BUN Creatinine 0.7 L Glucose 251 H POC Glucose 173 H 209 H Calcium 7.8 L Total Creatine Kinase Troponin T C-Reactive Protein NT-Pro-B Natriuret Pep Albumin Triglycerides Cholesterol LDL Cholesterol Direct HDL Cholesterol Vancomycin Trough Miscellaneous Test 09/24/17 09/24/17 09/25/17 16:13 21:21 12:44 WBC RBC Hgb Hct MCH RDW Lymph % (Auto) [place] % (Auto) Eos % (Auto) Lymph # [place] # Seg Neutrophils % Seg Neuts % (Manual) Monocytes % (Manual) Seg Neutrophils # POC ABG pH POC ABG pCO2 POC ABG pO2 Sodium Chloride Carbon Dioxide BUN Creatinine Glucose POC Glucose 248 H 152 H 185 H Calcium Total Creatine Kinase Troponin T C-Reactive Protein NT-Pro-B Natriuret Pep Albumin Triglycerides Cholesterol LDL Cholesterol Direct HDL Cholesterol Vancomycin Trough Miscellaneous Test 09/25/17 09/25/17 09/26/17 17:18 23:10 05:35 WBC 15.6 H RBC Hgb Hct MCH RDW Lymph % (Auto) [place] % (Auto) Eos % (Auto) Lymph # [place] # Seg Neutrophils % 78.5 H Seg Neuts % (Manual) Monocytes % (Manual) Seg Neutrophils # 12.2 H POC ABG pH POC ABG pCO2 POC ABG pO2 Sodium Chloride Carbon Dioxide BUN Creatinine Glucose POC Glucose 186 H 187 H Calcium Total Creatine Kinase Troponin T C-Reactive Protein NT-Pro-B Natriuret Pep Albumin Triglycerides Cholesterol LDL Cholesterol Direct HDL Cholesterol Vancomycin Trough Miscellaneous Test 09/26/17 09/26/1709/26/18 05:35 09:02 12:20 WBC RBC Hgb Hct MCH RDW Lymph % (Auto) [place] % (Auto) Eos % (Auto) Lymph # [place] # Seg Neutrophils % Seg Neuts % (Manual) Monocytes % (Manual) Seg Neutrophils # POC ABG pH POC ABG pCO2 POC ABG pO2 Sodium 133 L Chloride 95.2 L Carbon Dioxide BUN Creatinine 0.7 L Glucose 161 H POC Glucose 131 H 199 H Calcium 8.3 L Total Creatine Kinase Troponin T C-Reactive Protein NT-Pro-B Natriuret Pep Albumin Triglycerides Cholesterol LDL Cholesterol Direct HDL Cholesterol Vancomycin Trough Miscellaneous Test 09/26/17 09/26/17 09/27/17 16:39 21:45 07:24 WBC RBC Hgb Hct MCH RDW Lymph % (Auto) [place] % (Auto) Eos % (Auto) Lymph # [place] # Seg Neutrophils % Seg Neuts % (Manual) Monocytes % (Manual) Seg Neutrophils # POC ABG pH POC ABG pCO2 POC ABG pO2 Sodium Chloride Carbon Dioxide BUN Creatinine Glucose POC Glucose 209 H 194 H 210 H Calcium Total Creatine Kinase Troponin T C-Reactive Protein NT-Pro-B Natriuret Pep Albumin Triglycerides Cholesterol LDL Cholesterol Direct HDL Cholesterol Vancomycin Trough Miscellaneous Test 09/27/17 09/27/17 09/27/17 09:20 09:20 11:50 WBC RBC Hgb 11.0 L Hct MCH RDW Lymph % (Auto) [place] % (Auto) Eos % (Auto) Lymph # [place] # Seg Neutrophils % 77.2 H Seg Neuts % (Manual) Monocytes % (Manual) Seg Neutrophils # POC ABG pH POC ABG pCO2 POC ABG pO2 Sodium 134 L Chloride 96.1 L Carbon Dioxide BUN 21 H Creatinine Glucose 139 H POC Glucose Calcium 8.0 L Total Creatine Kinase Troponin T C-Reactive Protein NT-Pro-B Natriuret Pep Albumin Triglycerides Cholesterol LDL Cholesterol Direct HDL Cholesterol Vancomycin Trough 46.8 H Miscellaneous Test 09/27/17 09/27/17 09/27/17 11:50 12:18 17:00 WBC RBC Hgb 10.7 L Hct 32.1 L D MCH RDW Lymph % (Auto) [place] % (Auto) Eos % (Auto) Lymph # [place] # Seg Neutrophils % 80.6 H Seg Neuts % (Manual) Monocytes % (Manual) Seg Neutrophils # POC ABG pH POC ABG pCO2 POC ABG pO2 Sodium Chloride Carbon Dioxide BUN Creatinine Glucose POC Glucose 274 H 169 H Calcium Total Creatine Kinase Troponin T C-Reactive Protein NT-Pro-B Natriuret Pep Albumin Triglycerides Cholesterol LDL Cholesterol Direct HDL Cholesterol Vancomycin Trough Miscellaneous Test 09/27/17 09/27/17 09/27/17 21:18 21:19 23:28 WBC RBC Hgb Hct MCH RDW Lymph % (Auto) [place] % (Auto) Eos % (Auto) Lymph # [place] # Seg Neutrophils % Seg Neuts % (Manual) Monocytes % (Manual) Seg Neutrophils # POC ABG pH POC ABG pCO2 POC ABG pO2 Sodium Chloride Carbon Dioxide BUN Creatinine Glucose POC Glucose 251 H Calcium Total Creatine Kinase Troponin T C-Reactive Protein 34.90 H NT-Pro-B Natriuret Pep Albumin Triglycerides Cholesterol LDL Cholesterol Direct HDL Cholesterol Vancomycin Trough Miscellaneous Test Flexitest 1 H 09/27/17 09/28/17 09/28/17 23:49 07:00 07:00 WBC RBC 3.44 L Hgb 9.9 L Hct 29.6 L MCH RDW Lymph % (Auto) [place] % (Auto) Eos % (Auto) Lymph # 1.0 L [place] # Seg Neutrophils % 76.2 H Seg Neuts % (Manual) Monocytes % (Manual) Seg Neutrophils # POC ABG pH POC ABG pCO2 POC ABG pO2 Sodium 128 L Chloride 92.1 L Carbon Dioxide 20 L BUN 40 H Creatinine 3.1 H D Glucose 199 H POC Glucose 233 H Calcium 7.5 L Total Creatine Kinase Troponin T C-Reactive Protein NT-Pro-B Natriuret Pep Albumin Triglycerides Cholesterol LDL Cholesterol Direct HDL Cholesterol Vancomycin Trough Miscellaneous Test 09/28/17 09/28/17 09/28/17 07:00 08:03 13:31 WBC RBC Hgb Hct MCH RDW Lymph % (Auto) [place] % (Auto) Eos % (Auto) Lymph # [place] # Seg Neutrophils % Seg Neuts % (Manual) Monocytes % (Manual) Seg Neutrophils # POC ABG pH POC ABG pCO2 POC ABG pO2 Sodium Chloride Carbon Dioxide BUN Creatinine Glucose POC Glucose 165 H 237 H Calcium Total Creatine Kinase Troponin T C-Reactive Protein NT-Pro-B Natriuret Pep Albumin Triglycerides Cholesterol LDL Cholesterol Direct HDL Cholesterol Vancomycin Trough 36.3 H Miscellaneous Test 09/28/17 09/28/17 09/29/17 16:20 22:12 05:20 WBC RBC Hgb 11.4 L Hct 34.5 L MCH RDW Lymph % (Auto) 10.5 L [place] % (Auto) 9.1 H Eos % (Auto) Lymph # 0.5 L [place] # Seg Neutrophils % 75.8 H Seg Neuts % (Manual) Monocytes % (Manual) Seg Neutrophils # POC ABG pH POC ABG pCO2 POC ABG pO2 Sodium Chloride Carbon Dioxide BUN Creatinine Glucose POC Glucose 323 H 164 H Calcium Total Creatine Kinase Troponin T C-Reactive Protein NT-Pro-B Natriuret Pep Albumin Triglycerides Cholesterol LDL Cholesterol Direct HDL Cholesterol Vancomycin Trough Miscellaneous Test 09/29/17 09/29/17 09/29/17 05:20 07:53 16:21 WBC RBC Hgb Hct MCH RDW Lymph % (Auto) [place] % (Auto) Eos % (Auto) Lymph # [place] # Seg Neutrophils % Seg Neuts % (Manual) Monocytes % (Manual) Seg Neutrophils # POC ABG pH POC ABG pCO2 POC ABG pO2 Sodium 128 L Chloride 91.6 L Carbon Dioxide 21 L BUN 51 H Creatinine 3.8 H Glucose 161 H POC Glucose 128 H 141 H Calcium Total Creatine Kinase Troponin T C-Reactive Protein NT-Pro-B Natriuret Pep Albumin Triglycerides Cholesterol LDL Cholesterol Direct HDL Cholesterol Vancomycin Trough Miscellaneous Test 09/29/17 09/30/17 09/30/17 22:17 05:21 05:21 WBC RBC Hgb 10.3 L Hct 32.1 L MCH 27 L RDW Lymph % (Auto) 11.6 L [place] % (Auto) 9.3 H Eos % (Auto) 4.9 H Lymph # 0.8 L [place] # Seg Neutrophils % 73.6 H Seg Neuts % (Manual) Monocytes % (Manual) Seg Neutrophils # POC ABG pH POC ABG pCO2 POC ABG pO2 Sodium 127 L Chloride 90.9 L Carbon Dioxide BUN 52 H Creatinine 4.5 H Glucose 187 H POC Glucose 158 H Calcium 7.9 L Total Creatine Kinase Troponin T C-Reactive Protein NT-Pro-B Natriuret Pep Albumin Triglycerides Cholesterol LDL Cholesterol Direct HDL Cholesterol Vancomycin Trough Miscellaneous Test 09/30/17 09/30/17 09/30/17 07:47 11:55 21:44 WBC RBC Hgb Hct MCH RDW Lymph % (Auto) [place] % (Auto) Eos % (Auto) Lymph # [place] # Seg Neutrophils % Seg Neuts % (Manual) Monocytes % (Manual) Seg Neutrophils # POC ABG pH POC ABG pCO2 POC ABG pO2 Sodium Chloride Carbon Dioxide BUN Creatinine Glucose POC Glucose 137 H 184 H 141 H Calcium Total Creatine Kinase Troponin T C-Reactive Protein NT-Pro-B Natriuret Pep Albumin Triglycerides Cholesterol LDL Cholesterol Direct HDL Cholesterol Vancomycin Trough Miscellaneous Test 10/01/17 10/01/17 10/01/17 06:03 06:03 16:37 WBC RBC Hgb 11.3 L Hct 33.6 L MCH RDW Lymph % (Auto) 11.2 L [place] % (Auto) 10.2 H Eos % (Auto) Lymph # 1.1 L [place] # 1.0 H Seg Neutrophils % 74.5 H Seg Neuts % (Manual) Monocytes % (Manual) Seg Neutrophils # POC ABG pH POC ABG pCO2 POC ABG pO2 Sodium 130 L Chloride 92.3 L Carbon Dioxide BUN 53 H Creatinine 4.5 H Glucose POC Glucose 125 H Calcium 8.0 L Total Creatine Kinase Troponin T C-Reactive Protein NT-Pro-B Natriuret Pep Albumin Triglycerides Cholesterol LDL Cholesterol Direct HDL Cholesterol Vancomycin Trough Miscellaneous Test 10/01/17 10/01/17 10/02/17 20:41 21:47 06:21 WBC RBC Hgb 11.5 L Hct 34.5 L MCH RDW 15.3 H Lymph % (Auto) [place] % (Auto) 12.4 H Eos % (Auto) Lymph # 0.9 L [place] # Seg Neutrophils % 70.6 H Seg Neuts % (Manual) Monocytes % (Manual) Seg Neutrophils # POC ABG pH POC ABG pCO2 POC ABG pO2 Sodium Chloride Carbon Dioxide BUN Creatinine Glucose POC Glucose 115 H Calcium Total Creatine Kinase Troponin T C-Reactive Protein 7.60 H NT-Pro-B Natriuret Pep Albumin Triglycerides Cholesterol LDL Cholesterol Direct HDL Cholesterol Vancomycin Trough Miscellaneous Test 10/02/17 10/02/17 10/02/17 06:21 07:47 21:56 WBC RBC Hgb Hct MCH RDW Lymph % (Auto) [place] % (Auto) Eos % (Auto) Lymph # [place] # Seg Neutrophils % Seg Neuts % (Manual) Monocytes % (Manual) Seg Neutrophils # POC ABG pH POC ABG pCO2 POC ABG pO2 Sodium 133 L Chloride 92.7 L Carbon Dioxide BUN 51 H Creatinine 4.7 H Glucose 113 H POC Glucose 118 H 154 H Calcium 8.0 L Total Creatine Kinase Troponin T C-Reactive Protein NT-Pro-B Natriuret Pep Albumin Triglycerides Cholesterol LDL Cholesterol Direct HDL Cholesterol Vancomycin Trough Miscellaneous Test 10/03/17 10/03/17 10/03/17 06:13 06:13 16:50 WBC RBC Hgb 10.7 L Hct 31.9 L MCH RDW 15.6 H Lymph % (Auto) [place] % (Auto) Eos % (Auto) Lymph # [place] # Seg Neutrophils % Seg Neuts % (Manual) Monocytes % (Manual) Seg Neutrophils # POC ABG pH POC ABG pCO2 POC ABG pO2 Sodium 134 L Chloride 95.3 L Carbon Dioxide BUN 32 H Creatinine 3.7 H Glucose POC Glucose 126 H Calcium 7.8 L Total Creatine Kinase Troponin T C-Reactive Protein NT-Pro-B Natriuret Pep Albumin Triglycerides Cholesterol LDL Cholesterol Direct HDL Cholesterol Vancomycin Trough Miscellaneous Test 10/04/17 10/04/17 10/04/17 05:49 05:49 12:01 WBC RBC Hgb 10.8 L Hct 32.3 L MCH RDW 15.6 H Lymph % (Auto) [place] % (Auto) Eos % (Auto) Lymph # [place] # Seg Neutrophils % Seg Neuts % (Manual) 72.0 H Monocytes % (Manual) 9.0 H Seg Neutrophils # POC ABG pH POC ABG pCO2 POC ABG pO2 Sodium 133 L Chloride 93.7 L Carbon Dioxide BUN 23 H Creatinine 3.2 H Glucose POC Glucose 140 H Calcium 7.8 L Total Creatine Kinase Troponin T C-Reactive Protein NT-Pro-B Natriuret Pep Albumin Triglycerides Cholesterol LDL Cholesterol Direct HDL Cholesterol Vancomycin Trough Miscellaneous Test 10/04/17 10/04/17 10/05/17 17:35 20:44 05:34 WBC RBC 5.17 H Hgb Hct MCH 27 L RDW 15.5 H Lymph % (Auto) [place] % (Auto) 13.6 H Eos % (Auto) Lymph # [place] # 0.9 H Seg Neutrophils % Seg Neuts % (Manual) Monocytes % (Manual) Seg Neutrophils # POC ABG pH POC ABG pCO2 POC ABG pO2 Sodium Chloride Carbon Dioxide BUN Creatinine Glucose POC Glucose 143 H 135 H Calcium Total Creatine Kinase Troponin T C-Reactive Protein NT-Pro-B Natriuret Pep Albumin Triglycerides Cholesterol LDL Cholesterol Direct HDL Cholesterol Vancomycin Trough Miscellaneous Test 10/05/17 10/05/17 10/05/17 05:34 12:34 21:29 WBC RBC Hgb Hct MCH RDW Lymph % (Auto) [place] % (Auto) Eos % (Auto) Lymph # [place] # Seg Neutrophils % Seg Neuts % (Manual) Monocytes % (Manual) Seg Neutrophils # POC ABG pH POC ABG pCO2 POC ABG pO2 Sodium 132 L Chloride 92.7 L Carbon Dioxide BUN 36 H Creatinine 3.7 H Glucose POC Glucose 161 H 191 H Calcium 7.8 L Total Creatine Kinase Troponin T C-Reactive Protein NT-Pro-B Natriuret Pep Albumin Triglycerides Cholesterol LDL Cholesterol Direct HDL Cholesterol Vancomycin Trough Miscellaneous Test 10/06/17 10/06/17 10/06/17 05:50 05:50 13:14 WBC RBC Hgb 10.6 L D Hct 32.4 L D MCH RDW 15.5 H Lymph % (Auto) [place] % (Auto) 15.6 H Eos % (Auto) Lymph # [place] # 1.2 H Seg Neutrophils % Seg Neuts % (Manual) Monocytes % (Manual) Seg Neutrophils # POC ABG pH POC ABG pCO2 POC ABG pO2 Sodium 131 L Chloride 91.9 L Carbon Dioxide BUN 27 H Creatinine 3.0 H Glucose 140 H POC Glucose 162 H Calcium 7.9 L Total Creatine Kinase Troponin T C-Reactive Protein NT-Pro-B Natriuret Pep Albumin Triglycerides Cholesterol LDL Cholesterol Direct HDL Cholesterol Vancomycin Trough Miscellaneous Test 10/06/17 10/06/17 10/07/17 15:54 21:48 05:32 WBC RBC Hgb 11.3 L Hct 34.0 L MCH RDW 15.3 H Lymph % (Auto) [place] % (Auto) 13.4 H Eos % (Auto) Lymph # [place] # 1.1 H Seg Neutrophils % Seg Neuts % (Manual) Monocytes % (Manual) Seg Neutrophils # POC ABG pH POC ABG pCO2 POC ABG pO2 Sodium Chloride Carbon Dioxide BUN Creatinine Glucose POC Glucose 194 H 190 H Calcium Total Creatine Kinase Troponin T C-Reactive Protein NT-Pro-B Natriuret Pep Albumin Triglycerides Cholesterol LDL Cholesterol Direct HDL Cholesterol Vancomycin Trough Miscellaneous Test 10/07/17 10/07/17 05:32 05:32 WBC RBC Hgb Hct MCH RDW Lymph % (Auto) [place] % (Auto) Eos % (Auto) Lymph # [place] # Seg Neutrophils % Seg Neuts % (Manual) Monocytes % (Manual) Seg Neutrophils # POC ABG pH POC ABG pCO2 POC ABG pO2 Sodium 134 L Chloride 95.7 L Carbon Dioxide BUN 35 H Creatinine 3.3 H Glucose 101 H POC Glucose Calcium 8.1 L Total Creatine Kinase Troponin T C-Reactive Protein NT-Pro-B Natriuret Pep Albumin 2.8 L Triglycerides Cholesterol LDL Cholesterol Direct HDL Cholesterol Vancomycin Trough Miscellaneous Test
[2017-10-07 18:06] LABS: Creatinine,Urine 45.7 mg/dL (0.1-20.0)
[2017-10-07] MEDS: PRAVACHOL PO SCH (21:06)
[2017-10-07] MEDS: AMBIEN PO PRN (21:09)
[2017-10-07] MEDS: LEVEMIR SUB-Q SCH (23:16)
[2017-10-08] MEDS: LOPRESSOR PO SCH ×4 (03:34→21:15)
[2017-10-08] MEDS: APRESOLINE PO SCH ×3 (05:24→21:15)
[2017-10-08 05:59] LABS: Basophils # (Auto) 0.1 K/mm3 (0.0-0.1); Basophils % (Auto) 0.7 % (0.0-1.8); Eosinophils # (Auto) 0.1 K/mm3 (0.0-0.4); Eosinophils % (Auto) 1.3 % (0.0-4.3); Hematocrit 32.5 % (35.5-45.6); Hemoglobin 10.7 gm/dl (11.8-15.2); Lymphocytes # (Auto) 1.5 K/mm3 (1.2-5.4); Lymphocytes % (Auto) 13.2 % (13.4-35.0); Mean Corpuscular HGB Conc 33 % (32-34); Mean Corpuscular Hemoglobin 28 pg (28-32); Mean Corpuscular Volume 84 fl (84-94); Monocytes # (Auto) 1.4 K/mm3 (0.0-0.8); Monocytes % (Auto) 12.7 % (0.0-7.3); Platelet Count 359 K/mm3 (140-440); Red Blood Count 3.87 M/mm3 (3.65-5.03); Red Cell Distribution Width 15.5 % (13.2-15.2)
[2017-10-08 06:12] LABS: Calcium 8.3 mg/dL (8.4-10.2)
[2017-10-08 06:25] LABS: INR 1.19 (0.87-1.13)
--- NOTE | 2017-10-08 09:46 | Progress Note ---
Assessment and Plan Assessment and plan: Acute hypoxic respiratory failure -BIPAP as clinically indicated -Etiology secondary to bilateral pneumonia Acute Renal failure -Patient receiving hemodialysis . Creatinine 3.4 today -Assess need for HD on daily basis as per Nephrology -Avoid Nephrotoxic agents -Renally dose medications -Obtain daily weights -Monitor intake and output -Monitor renal function closely -Renal ultrasound showed no hydronephrosis -Nephrology following Sepsis -Etiology secondary to pneumonia. -follow up Legionella urine antigen, Streptococcus pneumoniae urine antigen -Blood cultures thus far negative. -continue abx per ID Bilateral pneumonia - On IV antibiotics , Levaquin and Zyvox - Pulmonary consult appreciated Cardiomyopathy - EF of 10-15%, systolic dysfunction - continue with CHF medications -Patient previously on milrinone drip per cardiology - Cardiology following - For cardiac cath today. NSVT -Patient had run of V. tach -Consider ICD as outpatient per cardiology Acute on chronic systolic heart failure. -Continue aggressive medical therapy with IV milrinone and IV diuresis. Hyponatremia -Fluid restriction of 750ml per day -Follow BMP DM with hyperglycemia - SSI and basal insulin Acute ischemic stroke left occipital lobe. On Aspirin Neurology following Right homonymous visual field defect -Neuro following. -Ophthalmology outpatient follow-up DVT prophylaxis - On lovenox - patient is not stable enough to transfer to [facility]. Disposition. -Continue inpatient management. [phone] , Bowman number to arrange for follow-up at the time of discharge. History Interval history: Right visual field defect No chest pain, No SOB Hospitalist Physical - Physical exam Narrative exam: GEN APPEARANCE : Not in acute distress,obese HEENT: Normocephalic, Atraumatic NECK : supple, no JVD LUNGS: Clear to auscultation bilaterally, no rales, no wheeze HEART: S1 and S2 regular, no murmurs, rubs or gallop, ABD: Soft, non tender, non distended, normal bowel sounds EXT:No edema, no clubbing, no cyanosis NEURO: Awake, alert,oriented x 3, right visual field defect - Constitutional Vitals: Temp Pulse Resp BP Pulse Ox 99.2 F 117 H 20 114/81 91 10/08/17 04:36 10/08/17 04:36 10/08/17 04:36 10/08/17 08:21 10/08/17 04:36 General appearance: Present: no acute distress Results - Labs CBC & Chem 7: 10/08/17 04:59 10/08/17 04:59 Labs: Laboratory Last Values WBC 11.2 K/mm3 (4.5-11.0) H 10/08/17 04:59 RBC 3.87 M/mm3 (3.65-5.03) 10/08/17 04:59 Hgb 10.7 gm/dl (11.8-15.2) L 10/08/17 04:59 Hct 32.5 % (35.5-45.6) L 10/08/17 04:59 MCV 84 fl (84-94) 10/08/17 04:59 MCH 28 pg (28-32) 10/08/17 04:59 MCHC 33 % (32-34) 10/08/17 04:59 RDW 15.5 % (13.2-15.2) H 10/08/17 04:59 Plt Count 359 K/mm3 (140-440) 10/08/17 04:59 Lymph % (Auto) 13.2 % (13.4-35.0) L 10/08/17 04:59 Gilliam % (Auto) 12.7 % (0.0-7.3) H 10/08/17 04:59 Eos % (Auto) 1.3 % (0.0-4.3) 10/08/17 04:59 Baso % (Auto) 0.7 % (0.0-1.8) 10/08/17 04:59 Lymph # 1.5 K/mm3 (1.2-5.4) 10/08/17 04:59 Gilliam # 1.4 K/mm3 (0.0-0.8) H 10/08/17 04:59 Eos # 0.1 K/mm3 (0.0-0.4) 10/08/17 04:59 Baso # 0.1 K/mm3 (0.0-0.1) 10/08/17 04:59 Add Manual Diff Complete 10/04/17 05:49 Total Counted 100 10/04/17 05:49 Seg Neutrophils % 72.1 % (40.0-70.0) H 10/08/17 04:59 Seg Neuts % (Manual) 72.0 % (40.0-70.0) H 10/04/17 05:49 Band Neutrophils % 0 % 10/04/17 05:49 Lymphocytes % (Manual) 17.0 % (13.4-35.0) 10/04/17 05:49 Reactive Lymphs % (Man) 0 % 10/04/17 05:49 Monocytes % (Manual) 9.0 % (0.0-7.3) H 10/04/17 05:49 Eosinophils % (Manual) 2.0 % (0.0-4.3) 10/04/17 05:49 Basophils % (Manual) 0 % (0.0-1.8) 10/04/17 05:49 Metamyelocytes % 0 % 10/04/17 05:49 Myelocytes % 0 % 10/04/17 05:49 Promyelocytes % 0 % 10/04/17 05:49 Blast Cells % 0 % 10/04/17 05:49 Nucleated RBC % Not Reportable 10/04/17 05:49 Seg Neutrophils # 8.1 K/mm3 (1.8-7.7) H 10/08/17 04:59 Seg Neutrophils # Man 5.3 K/mm3 (1.8-7.7) 10/04/17 05:49 Band Neutrophils # 0.0 K/mm3 10/04/17 05:49 Lymphocytes # (Manual) 1.3 K/mm3 (1.2-5.4) 10/04/17 05:49 Abs React Lymphs (Man) 0.0 K/mm3 10/04/17 05:49 Monocytes # (Manual) 0.7 K/mm3 (0.0-0.8) 10/04/17 05:49 Eosinophils # (Manual) 0.1 K/mm3 (0.0-0.4) 10/04/17 05:49 Basophils # (Manual) 0.0 K/mm3 (0.0-0.1) 10/04/17 05:49 Metamyelocytes # 0.0 K/mm3 10/04/17 05:49 Myelocytes # 0.0 K/mm3 10/04/17 05:49 Promyelocytes # 0.0 K/mm3 10/04/17 05:49 Blast Cells # 0.0 K/mm3 10/04/17 05:49 WBC Morphology Not Reportable 10/04/17 05:49 Hypersegmented Neuts Not Reportable 10/04/17 05:49 Hyposegmented Neuts Not Reportable 10/04/17 05:49 Hypogranular Neuts Not Reportable 10/04/17 05:49 Smudge Cells Not Reportable 10/04/17 05:49 Toxic Granulation Not Reportable 10/04/17 05:49 Toxic Vacuolation Not Reportable 10/04/17 05:49 Dohle Bodies Not Reportable 10/04/17 05:49 Pelger-Huet Anomaly Not Reportable 10/04/17 05:49 Diaz Rods Not Reportable 10/04/17 05:49 Platelet Estimate Appears normal 10/04/17 05:49 Clumped Platelets Not Reportable 10/04/17 05:49 Plt Clumps, EDTA Not Reportable 10/04/17 05:49 Large Platelets Not Reportable 10/04/17 05:49 Giant Platelets Not Reportable 10/04/17 05:49 Platelet Satelliting Not Reportable 10/04/17 05:49 Plt Morphology Comment Not Reportable 10/04/17 05:49 RBC Morphology Not Reportable 10/04/17 05:49 Dimorphic RBCs Not Reportable 10/04/17 05:49 Polychromasia Few 10/04/17 05:49 Hypochromasia Not Reportable 10/04/17 05:49 Poikilocytosis Not Reportable 10/04/17 05:49 Anisocytosis 1+ 10/04/17 05:49 Microcytosis Not Reportable 10/04/17 05:49 Macrocytosis Not Reportable 10/04/17 05:49 Spherocytes Not Reportable 10/04/17 05:49 Pappenheimer Bodies Not Reportable 10/04/17 05:49 Sickle Cells Not Reportable 10/04/17 05:49 Target Cells Not Reportable 10/04/17 05:49 Tear Drop Cells Not Reportable 10/04/17 05:49 Ovalocytes Not Reportable 10/04/17 05:49 Helmet Cells Not Reportable 10/04/17 05:49 [place] Bodies Not Reportable 10/04/17 05:49 Chandler Rings Not Reportable 10/04/17 05:49 Daniela Cells Not Reportable 10/04/17 05:49 Bite Cells Not Reportable 10/04/17 05:49 Crenated Cell Not Reportable 10/04/17 05:49 Elliptocytes Not Reportable 10/04/17 05:49 Acanthocytes (Spur) Not Reportable 10/04/17 05:49 Rouleaux Not Reportable 10/04/17 05:49 Hemoglobin C Crystals Not Reportable 10/04/17 05:49 Schistocytes Not Reportable 10/04/17 05:49 Malaria parasites Not Reportable 10/04/17 05:49 Dash Bodies Not Reportable 10/04/17 05:49 Hem Pathologist Commnt No 10/04/17 05:49 PT 15.7 Sec. (12.2-14.9) H 10/08/17 04:59 INR 1.19 (0.87-1.13) H 10/08/17 04:59 POC ABG pH 7.459 (7.35-7.45) H 09/23/17 15:04 POC ABG pCO2 34.8 (35-45) L 09/23/17 15:04 POC ABG pO2 54 (80-105) L 09/23/17 15:04 POC ABG HCO3 24.7 09/23/17 15:04 POC ABG Total CO2 26 09/23/17 15:04 POC ABG O2 Sat 89 09/23/17 15:04 POC ABG Base Excess 1 09/23/17 15:04 FiO2 21 % 09/23/17 15:04 Sodium 134 mmol/L (137-145) L 10/08/17 04:59 Potassium 4.3 mmol/L (3.6-5.0) 10/08/17 04:59 Chloride 96.3 mmol/L (98-107) L 10/08/17 04:59 Carbon Dioxide 24 mmol/L (22-30) 10/08/17 04:59 Anion Gap 18 mmol/L 10/08/17 04:59 BUN 39 mg/dL (9-20) H 10/08/17 04:59 Creatinine 3.4 mg/dL (0.8-1.5) H 10/08/17 04:59 Estimated GFR 24 ml/min 10/08/17 04:59 BUN/Creatinine Ratio 11 % 10/08/17 04:59 Glucose 105 mg/dL (75-100) H 10/08/17 04:59 POC Glucose 97 (70-105) 10/08/17 08:28 Osmolality 299 Mosm/kg 09/30/17 05:21 Calcium 8.3 mg/dL (8.4-10.2) L 10/08/17 04:59 Phosphorus 3.90 mg/dL (2.5-4.5) 10/08/17 04:59 Magnesium 1.70 mg/dL (1.7-2.3) 09/26/17 05:35 Total Bilirubin 0.40 mg/dL (0.1-1.2) 10/07/17 05:32 Direct Bilirubin < 0.2 mg/dL (0-0.2) 10/07/17 05:32 AST 21 units/L (5-40) 10/07/17 05:32 ALT 32 units/L (7-56) 10/07/17 05:32 Alkaline Phosphatase 119 units/L (35-129) 10/07/17 05:32 Total Creatine Kinase 170 units/L (55-170) 09/23/17 04:10 CK-MB (CK-2) 1.4 ng/mL (0.0-4.0) 09/23/17 04:10 CK-MB (CK-2) Rel Index 0.8 (0-4) 09/23/17 04:10 Troponin T 0.287 ng/mL (0.00-0.029) H* 09/23/17 04:10 C-Reactive Protein 7.60 mg/dL (0.00-1.30) H 10/01/17 20:41 NT-Pro-B Natriuret Pep 5093 pg/mL (0-450) H 09/22/17 21:31 Total Protein 7.2 g/dL (6.3-8.2) 10/07/17 05:32 Albumin 2.8 g/dL (3.9-5) L 10/07/17 05:32 Albumin/Globulin Ratio 0.6 % 10/07/17 05:32 Triglycerides 226 mg/dL (2-149) H 09/22/17 21:31 Cholesterol 235 mg/dL (50-199) H 09/22/17 21:31 LDL Cholesterol Direct 164 mg/dL (50-130) H 09/22/17 21:31 HDL Cholesterol 26 mg/dL (40-59) L 09/22/17 21:31 Cholesterol/HDL Ratio 9.03 % 09/22/17 21:31 Urine Eosinophils None seen (None Seen) 09/29/17 Unknown Urine Total Volume 2200 10/07/17 Unknown Urine Creatinine 45.7 mg/dL (0.1-20.0) H 10/07/17 Unknown Ur Creatinine 24 Hour 1.0 (0.8-2.8) 10/07/17 Unknown Vancomycin Trough 36.3 ug/mL (5.0-20.0) H 09/28/17 07:00 Hepatitis A IgM Ab Non-reactive (NonReactive) 10/02/17 17:35 Hep Bs Antigen Non-reactive (Negative) 10/02/17 17:35 Hep B Core IgM Ab Non-reactive (NonReactive) 10/02/17 17:35 Hepatitis C Antibody Non-reactive (NonReactive) 10/02/17 17:35 HIV-1 RNA PCR copies/ml TNR 09/27/17 21:18 HIV-1 RNA (PCR) log TNR 09/27/17 21:18 HIV 1&2 Antibody Rapid Non react (Non React) 09/27/17 21:18 HIV P24 Antigen Non react (Non React) 09/27/17 21:18 Miscellaneous Test Flexitest 1 H 09/27/17 21:19
[2017-10-08 09:56] LABS: Creatinine,Urine 45.5 mg/dL (0.1-20.0)
[2017-10-08] MEDS: BABY ASPIRIN PO SCH ×2 (10:12→14:27)
[2017-10-08] MEDS: NOVOLOG SUB-Q SCH ×4 (10:13→22:29)
[2017-10-08] MEDS ORDERED: NACL 0.9% 500 ML 500 ML IV SCH (11:30)
--- NOTE | 2017-10-08 11:34 | Progress Note ---
Assessment and Plan (1) Bilateral pneumonia Current Visit: Yes Status: Acute Qualifiers: Pneumonia type: due to unspecified organism Lung location: unspecified part of lung Qualified Code(s): J18.9 - Pneumonia, unspecified organism Plan to address problem: On Levaquin and zyvox As per primary team (2) severe renal failure Current Visit: Yes Status: Acute Plan to address problem: Cr clearance was 15 ml/min good UOP will cont to monitor renal function closely, may require HD mcc Assess need for HD on daily basis Renally dose medications Obtain daily weight Lyles Catheter: No Strict intake and output (3) Hyponatremia Current Visit: Yes Status: Acute Plan to address problem: Maintain fluid restriction of 750 ml per day (4) Systolic heart failure Current Visit: Yes Status: Acute Plan to address problem: Cardiology on board, EF 10-15%, LHC today (5) CVA (cerebral vascular accident) Current Visit: Yes Status: Acute Plan to address problem: Neurology on board, stroke in medial occipital and medial temporal lobe, RIP SAWYER left sided clot on MRA of head, MAYKEL pending, follow up recs Subjective Date of service: 10/08/17 Principal diagnosis: stroke Interval history: 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
--- NOTE | 2017-10-08 11:51 | Progress Note ---
Assessment and Plan Assessment: 1) Sepsis: resolved. Etiology most likely bilateral pneumonia. -blood cultures 09/22 ngtd -CRP = 34.90 --> 7.6 -Procal 6.7 -Viral hepatitis panel negative -HIV non reactive 2) Bilateral pneumonia: ? post-influenza pneumonia ? CAP ?HAP on top of CHF exacerbation -s/p tamiflu x 5 days 3) CHF exaceration 4) Hyponatremia; resolving 5) DM-uncontrolled 6) Acute respiratory failure 7)LEÓN: resolving -now on HD Plan: -follow up Legionella urine antigen, Streptococcus pneumoniae urine antigen - pending -stop zyvox 600 -continue to monitor creatinine -slunk skin curer following We will sign off Thank you for the consult DWAINE Almonte for Dr. Ondina Arndt MD Infectious Diseases Specialist [facility] ([facility]) M [phone] O [phone] Subjective Date of service: 10/08/17 Principal diagnosis: stroke Interval history: I continue to have no fever Microbiology: Blood cultures: 09/22 ngtd 09/10 negative Urine cultures: Respiratory cultures: Current Antimicrobials: Levaquin 09/28 zyvox 09/29 Previous Antimicrobials: Zosyn 09/23 Vanco 09/23 Tamiflu 09/27 Objective - Exam Narrative Exam: General appearance: Alert in NAD, conversant Eyes: anicteric sclerae, moist conjunctivae; no lid-lag; PERRLA HENT: Atraumatic; oropharynx clear with moist mucous membranes and no mucosal ulcerations/no oral thrush; Neck: Trachea midline; supple, no thyromegaly or lymphadenopathy Lungs: diminish in bilateral lung bases, SOB CV: RRR, no murmurs Abdomen: Soft, non-tender; +BS x 4 Extremities: No peripheral edema or extremity lymphadenopathy Skin: Normal temperature, turgor and texture; no rash, ulcers or subcutaneous nodules Psych: Appropriate affect, cooperative Neuro: alert and oriented x 3. Moving all extermities Lines: No CVL / PICC - Constitutional Vitals: Vital Signs Temp Pulse Resp BP Pulse Ox 99.2 F 117 H 22 114/81 91 10/08/17 04:36 10/08/17 04:36 10/08/17 09:00 10/08/17 08:21 10/08/17 04:36 Temperature -Last 24 Hours Temperature 99.2 F Temperature 97.3 F Temperature 98.7 F Temperature 98.3 F - Labs CBC & Chem 7: 10/08/17 04:59 10/08/17 04:59 Labs: Abnormal lab results 10/07/17 10/07/17 10/07/17 Range/Units 08:43 12:41 21:34 WBC (4.5-11.0) K/mm3 Hgb (11.8-15.2) gm/dl Hct (35.5-45.6) % RDW (13.2-15.2) % Lymph % (Auto) (13.4-35.0) % Luce % (Auto) (0.0-7.3) % Luce # (0.0-0.8) K/mm3 Seg Neutrophils % (40.0-70.0) % Seg Neutrophils # (1.8-7.7) K/mm3 PT (12.2-14.9) Sec. INR (0.87-1.13) Sodium (137-145) mmol/L Chloride (98-107) mmol/L BUN (9-20) mg/dL Creatinine (0.8-1.5) mg/dL Glucose (75-100) mg/dL POC Glucose 131 H 165 H 167 H (70-105) Calcium (8.4-10.2) mg/dL Urine Creatinine (0.1-20.0) mg/dL 10/07/17 10/08/17 10/08/17 Range/Units Unknown 04:59 04:59 WBC 11.2 H (4.5-11.0) K/mm3 Hgb 10.7 L (11.8-15.2) gm/dl Hct 32.5 L (35.5-45.6) % RDW 15.5 H (13.2-15.2) % Lymph % (Auto) 13.2 L (13.4-35.0) % Luce % (Auto) 12.7 H (0.0-7.3) % Luce # 1.4 H (0.0-0.8) K/mm3 Seg Neutrophils % 72.1 H (40.0-70.0) % Seg Neutrophils # 8.1 H (1.8-7.7) K/mm3 PT (12.2-14.9) Sec. INR (0.87-1.13) Sodium 134 L (137-145) mmol/L Chloride 96.3 L (98-107) mmol/L BUN 39 H (9-20) mg/dL Creatinine 3.4 H (0.8-1.5) mg/dL Glucose 105 H (75-100) mg/dL POC Glucose (70-105) Calcium 8.3 L (8.4-10.2) mg/dL Urine Creatinine 45.7 H (0.1-20.0) mg/dL 10/08/17 10/08/17 Range/Units 04:59 Unknown WBC (4.5-11.0) K/mm3 Hgb (11.8-15.2) gm/dl Hct (35.5-45.6) % RDW (13.2-15.2) % Lymph % (Auto) (13.4-35.0) % Luce % (Auto) (0.0-7.3) % Luce # (0.0-0.8) K/mm3 Seg Neutrophils % (40.0-70.0) % Seg Neutrophils # (1.8-7.7) K/mm3 PT 15.7 H (12.2-14.9) Sec. INR 1.19 H (0.87-1.13) Sodium (137-145) mmol/L Chloride (98-107) mmol/L BUN (9-20) mg/dL Creatinine (0.8-1.5) mg/dL Glucose (75-100) mg/dL POC Glucose (70-105) Calcium (8.4-10.2) mg/dL Urine Creatinine 45.5 H (0.1-20.0) mg/dL
[2017-10-08] MEDS ORDERED: HEPARIN/NS 5000 UNIT/500ML(CATH LAB) 1,000 ML IR ONE (12:16)
[2017-10-08] MEDS ORDERED: HEPARIN 10,000 UNITS/10 ML ONE (12:19)
[2017-10-08] MEDS ORDERED: NITROGLYCERIN SYRINGE 0 ML ONE (12:20)
[2017-10-08] MEDS: XYLOCAINE 2% INFILTRATI ONE ×2 (12:32→12:39)
[2017-10-08] MEDS: SUBLIMAZE ONE ×2 (12:32→12:35)
[2017-10-08] MEDS: VERSED ONE ×2 (12:32→12:35)
--- NOTE | 2017-10-08 12:57 | Event Note ---
Date: 10/08/17 Cardiac cath completed, no complications. Findings: Mild irregularities with no significant obstructive CAD. Total contrast 30cc. Recommend medical therapy for nonischemic CM.
--- NOTE | 2017-10-08 13:22 | Cardiac Catherization Report ---
REASON FOR PROCEDURE: Congestive heart failure. PROCEDURES: 1. Left heart catheterization. 2. Selective left and right coronary angiography. DESCRIPTION OF PROCEDURE: The patient was prepped and draped in a sterile fashion after informed consent. The right femoral artery was entered using Seldinger technique followed by placement of a 6-Cymraes sheath. Selective left and right coronary angiography was performed using #4 right and left Luis Daniel catheters. The catheters were then removed, sheath removed, and hemostasis achieved using an Angio-Seal device. The patient was returned to the postprocedure unit in stable condition. There were no complications. FINDINGS: HEMODYNAMICS: Ascending aortic pressure was 137/97. CORONARY ANGIOGRAPHY: Left main coronary artery was free of significant disease. There was diffuse mild atherosclerosis of the left anterior descending artery and its diagonal branches. No significant occlusive lesions were noted. The circumflex artery and its obtuse marginal branches similarly contained diffuse mild atherosclerosis. The right coronary artery was dominant, and similarly contained diffuse mild atherosclerosis. Left ventricular angiography was not performed, total contrast used for the procedure was 30 mL. CONCLUSION: 1. Diffuse mild atherosclerosis as above. 2. No significant obstructive coronary disease. 3. 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 4. Total contrast used for the procedure was 30 mL. RECOMMENDATION: Medical therapy and risk factor modification. [facility]# [id number] VICKIE/CLARA
[2017-10-08] MEDS: LOVENOX SUB-Q SCH (14:28)
[2017-10-08] MEDS: ZYVOX PO SCH (14:28)
[2017-10-08] MEDS: PROTONIX PO SCH (14:29)
[2017-10-08] MEDS: TYLENOL PO PRN (20:01)
--- NOTE | 2017-10-08 20:59 | Progress Note ---
Assessment and Plan Patient resting on Venturi mask ,FIO2 50%.O2 saturation 95% .Patient taking off the mask at times. Recommend to keep mask all the time.Patient still complaining shortness of breath on exertion. - Patient Problems (1) Bilateral pleural effusion Current Visit: Yes Status: Acute Plan to address problem: Ultrasound of chest reported no significant pleural effusion. (2) Bilateral pneumonia Current Visit: Yes Status: Acute Qualifiers: Pneumonia type: due to unspecified organism Lung location: unspecified part of lung Qualified Code(s): J18.9 - Pneumonia, unspecified organism Plan to address problem: Patient is treated with Levaquine and Zyvox. Watching the patient off the antibiotics. Repeating chest xray tomorrow. (3) Acute congestive heart failure Current Visit: Yes Status: Acute Qualifiers: Congestive heart failure type: unspecified Qualified Code(s): I50.9 - Heart failure, unspecified Plan to address problem: Management as per primary care and cardiology. (4) Diabetes mellitus type 2, insulin dependent Current Visit: No Status: Acute Plan to address problem: Management as per primary care. (5) Obesity (BMI 30-39.9) Current Visit: No Status: Acute Plan to address problem: Recommend to loose weight. Diet and exercise. (6) Sleep apnea Current Visit: No Status: Acute Plan to address problem: BIPAP 16/, rate 16, FIO2 50%. Subjective Date of service: 10/08/17 Principal diagnosis: stroke Interval history: Patient resting on Venturi mask ,FIO2 50%.O2 saturation 95% .Patient taking off the mask at times. Recommend to keep mask all the time.Patient still complaining shortness of breath on exertion. Objective Vital Signs - 12hr 10/08/17 10/08/17 10/08/17 09:00 10:00 13:39 Temperature 98.2 F Pulse Rate 123 H 118 H Respiratory 22 18 Rate Respiratory 22 Rate [Head] Blood Pressure 128/102 Blood Pressure [Left] O2 Sat by Pulse 100 93 Oximetry 10/08/17 10/08/17 10/08/17 13:40 14:28 16:29 Temperature Pulse Rate 119 H 118 H 112 H Respiratory Rate Respiratory Rate [Head] Blood Pressure 128/102 130/86 Blood Pressure [Left] O2 Sat by Pulse 89 Oximetry 10/08/17 20:37 Temperature 99.3 F Pulse Rate 111 H Respiratory 20 Rate Respiratory Rate [Head] Blood Pressure Blood Pressure 123/93 [Left] O2 Sat by Pulse 95 Oximetry Constitutional: no acute distress, alert Eyes: non-icteric ENT: oropharynx moist, other (No thyromegaly) Neck: supple, no lymphadenopathy, no JVD Effort: mildly labored Ascultation: Bilateral: diminished breath sounds, rales (bases) Percussion: Bilateral: not dull Cardiovascular: regular rate and rhythm, murmur noted, other (no rubs) Gastrointestinal: normoactive bowel sounds, soft, non-tender Integumentary: normal Extremities: no cyanosis, pulses normal, no ischemia or petechiae, edema Neurologic: normal mental status, non-focal exam, pupils equal and round, CN II- XII normal Psychiatric: mood appropriate, affect normal CBC and BMP: 10/08/17 04:59 10/08/17 04:59 ABG, PT/INR, D-dimer: ABG POC ABG pH 7.459 (7.35-7.45) H 09/23/17 15:04 POC ABG pCO2 34.8 (35-45) L 09/23/17 15:04 POC ABG pO2 54 (80-105) L 09/23/17 15:04 POC ABG HCO3 24.7 09/23/17 15:04 POC ABG Total CO2 26 09/23/17 15:04 POC ABG O2 Sat 89 09/23/17 15:04 PT/INR, D-dimer PT 15.7 Sec. (12.2-14.9) H 10/08/17 04:59 INR 1.19 (0.87-1.13) H 10/08/17 04:59 Abnormal lab findings: Abnormal Labs 09/22/17 09/22/17 09/22/17 21:30 21:31 21:31 WBC RBC Hgb Hct MCH RDW 15.3 H Lymph % (Auto) [place] % (Auto) 9.6 H Eos % (Auto) Lymph # [place] # 0.9 H Seg Neutrophils % 72.0 H Seg Neuts % (Manual) Monocytes % (Manual) Seg Neutrophils # PT INR POC ABG pH POC ABG pCO2 POC ABG pO2 Sodium Chloride Carbon Dioxide BUN Creatinine Glucose POC Glucose Calcium Total Creatine Kinase 371 H Troponin T 0.260 H* C-Reactive Protein NT-Pro-B Natriuret Pep 5093 H Albumin Triglycerides 226 H Cholesterol 235 H LDL Cholesterol Direct 164 H HDL Cholesterol 26 L Urine Creatinine Vancomycin Trough Miscellaneous Test 09/22/17 09/22/17 09/23/17 22:54 22:54 04:00 WBC RBC Hgb Hct MCH RDW Lymph % (Auto) [place] % (Auto) 11.9 H Eos % (Auto) Lymph # [place] # Seg Neutrophils % Seg Neuts % (Manual) Monocytes % (Manual) Seg Neutrophils # PT INR POC ABG pH POC ABG pCO2 POC ABG pO2 Sodium 129 L Chloride 91.6 L Carbon Dioxide BUN Creatinine 0.7 L Glucose 256 H POC Glucose Calcium 7.9 L Total Creatine Kinase 211 H Troponin T 0.344 H* D C-Reactive Protein NT-Pro-B Natriuret Pep Albumin Triglycerides Cholesterol LDL Cholesterol Direct HDL Cholesterol Urine Creatinine Vancomycin Trough Miscellaneous Test 09/23/17 09/23/17 09/23/17 04:00 04:10 09:09 WBC RBC Hgb Hct MCH RDW Lymph % (Auto) [place] % (Auto) Eos % (Auto) Lymph # [place] # Seg Neutrophils % Seg Neuts % (Manual) Monocytes % (Manual) Seg Neutrophils # PT INR POC ABG pH POC ABG pCO2 POC ABG pO2 Sodium 136 L D Chloride 95.3 L Carbon Dioxide BUN Creatinine Glucose 181 H POC Glucose 166 H Calcium 7.7 L Total Creatine Kinase Troponin T 0.287 H* C-Reactive Protein NT-Pro-B Natriuret Pep Albumin Triglycerides Cholesterol LDL Cholesterol Direct HDL Cholesterol Urine Creatinine Vancomycin Trough Miscellaneous Test 09/23/17 09/23/17 09/23/17 11:40 13:19 15:04 WBC RBC Hgb Hct MCH RDW Lymph % (Auto) [place] % (Auto) Eos % (Auto) Lymph # [place] # Seg Neutrophils % Seg Neuts % (Manual) Monocytes % (Manual) Seg Neutrophils # PT INR POC ABG pH 7.459 H POC ABG pCO2 34.8 L POC ABG pO2 54 L Sodium Chloride Carbon Dioxide BUN Creatinine Glucose POC Glucose 221 H 267 H Calcium Total Creatine Kinase Troponin T C-Reactive Protein NT-Pro-B Natriuret Pep Albumin Triglycerides Cholesterol LDL Cholesterol Direct HDL Cholesterol Urine Creatinine Vancomycin Trough Miscellaneous Test 09/23/17 09/23/17 09/24/17 15:57 22:07 04:40 WBC RBC Hgb Hct MCH RDW Lymph % (Auto) [place] % (Auto) 11.4 H Eos % (Auto) Lymph # [place] # Seg Neutrophils % Seg Neuts % (Manual) Monocytes % (Manual) Seg Neutrophils # PT INR POC ABG pH POC ABG pCO2 POC ABG pO2 Sodium Chloride Carbon Dioxide BUN Creatinine Glucose POC Glucose 281 H 166 H Calcium Total Creatine Kinase Troponin T C-Reactive Protein NT-Pro-B Natriuret Pep Albumin Triglycerides Cholesterol LDL Cholesterol Direct HDL Cholesterol Urine Creatinine Vancomycin Trough Miscellaneous Test 09/24/17 09/24/17 09/24/17 04:40 08:42 12:17 WBC RBC Hgb Hct MCH RDW Lymph % (Auto) [place] % (Auto) Eos % (Auto) Lymph # [place] # Seg Neutrophils % Seg Neuts % (Manual) Monocytes % (Manual) Seg Neutrophils # PT INR POC ABG pH POC ABG pCO2 POC ABG pO2 Sodium 133 L Chloride 95.6 L Carbon Dioxide BUN Creatinine 0.7 L Glucose 251 H POC Glucose 173 H 209 H Calcium 7.8 L Total Creatine Kinase Troponin T C-Reactive Protein NT-Pro-B Natriuret Pep Albumin Triglycerides Cholesterol LDL Cholesterol Direct HDL Cholesterol Urine Creatinine Vancomycin Trough Miscellaneous Test 09/24/17 09/24/17 09/25/17 16:13 21:21 12:44 WBC RBC Hgb Hct MCH RDW Lymph % (Auto) [place] % (Auto) Eos % (Auto) Lymph # [place] # Seg Neutrophils % Seg Neuts % (Manual) Monocytes % (Manual) Seg Neutrophils # PT INR POC ABG pH POC ABG pCO2 POC ABG pO2 Sodium Chloride Carbon Dioxide BUN Creatinine Glucose POC Glucose 248 H 152 H 185 H Calcium Total Creatine Kinase Troponin T C-Reactive Protein NT-Pro-B Natriuret Pep Albumin Triglycerides Cholesterol LDL Cholesterol Direct HDL Cholesterol Urine Creatinine Vancomycin Trough Miscellaneous Test 09/25/17 09/25/17 09/26/17 17:18 23:10 05:35 WBC 15.6 H RBC Hgb Hct MCH RDW Lymph % (Auto) [place] % (Auto) Eos % (Auto) Lymph # [place] # Seg Neutrophils % 78.5 H Seg Neuts % (Manual) Monocytes % (Manual) Seg Neutrophils # 12.2 H PT INR POC ABG pH POC ABG pCO2 POC ABG pO2 Sodium Chloride Carbon Dioxide BUN Creatinine Glucose POC Glucose 186 H 187 H Calcium Total Creatine Kinase Troponin T C-Reactive Protein NT-Pro-B Natriuret Pep Albumin Triglycerides Cholesterol LDL Cholesterol Direct HDL Cholesterol Urine Creatinine Vancomycin Trough Miscellaneous Test 09/26/17 09/26/17 09/26/17 05:35 09:02 12:20 WBC RBC Hgb Hct MCH RDW Lymph % (Auto) [place] % (Auto) Eos % (Auto) Lymph # [place] # Seg Neutrophils % Seg Neuts % (Manual) Monocytes % (Manual) Seg Neutrophils # PT INR POC ABG pH POC ABG pCO2 POC ABG pO2 Sodium 133 L Chloride 95.2 L Carbon Dioxide BUN Creatinine 0.7 L Glucose 161 H POC Glucose 131 H 199 H Calcium 8.3 L Total Creatine Kinase Troponin T C-Reactive Protein NT-Pro-B Natriuret Pep Albumin Triglycerides Cholesterol LDL Cholesterol Direct HDL Cholesterol Urine Creatinine Vancomycin Trough Miscellaneous Test 09/26/17 09/26/17 09/27/17 16:39 21:45 07:24 WBC RBC Hgb Hct MCH RDW Lymph % (Auto) [place] % (Auto) Eos % (Auto) Lymph # [place] # Seg Neutrophils % Seg Neuts % (Manual) Monocytes % (Manual) Seg Neutrophils # PT INR POC ABG pH POC ABG pCO2 POC ABG pO2 Sodium Chloride Carbon Dioxide BUN Creatinine Glucose POC Glucose 209 H 194 H 210 H Calcium Total Creatine Kinase Troponin T C-Reactive Protein NT-Pro-B Natriuret Pep Albumin Triglycerides Cholesterol LDL Cholesterol Direct HDL Cholesterol Urine Creatinine Vancomycin Trough Miscellaneous Test 09/27/17 09/27/17 09/27/17 09:20 09:20 11:50 WBC RBC Hgb 11.0 L Hct MCH RDW Lymph % (Auto) [place] % (Auto) Eos % (Auto) Lymph # [place] # Seg Neutrophils % 77.2 H Seg Neuts % (Manual) Monocytes % (Manual) Seg Neutrophils # PT INR POC ABG pH POC ABG pCO2 POC ABG pO2 Sodium 134 L Chloride 96.1 L Carbon Dioxide BUN 21 H Creatinine Glucose 139 H POC Glucose Calcium 8.0 L Total Creatine Kinase Troponin T C-Reactive Protein NT-Pro-B Natriuret Pep Albumin Triglycerides Cholesterol LDL Cholesterol Direct HDL Cholesterol Urine Creatinine Vancomycin Trough 46.8 H Miscellaneous Test 09/27/17 09/27/17 09/27/17 11:50 12:18 17:00 WBC RBC Hgb 10.7 L Hct 32.1 L D MCH RDW Lymph % (Auto) [place] % (Auto) Eos % (Auto) Lymph # [place] # Seg Neutrophils % 80.6 H Seg Neuts % (Manual) Monocytes % (Manual) Seg Neutrophils # PT INR POC ABG pH POC ABG pCO2 POC ABG pO2 Sodium Chloride Carbon Dioxide BUN Creatinine Glucose POC Glucose 274 H 169 H Calcium Total Creatine Kinase Troponin T C-Reactive Protein NT-Pro-B Natriuret Pep Albumin Triglycerides Cholesterol LDL Cholesterol Direct HDL Cholesterol Urine Creatinine Vancomycin Trough Miscellaneous Test 09/27/17 09/27/17 09/27/17 21:18 21:19 23:28 WBC RBC Hgb Hct MCH RDW Lymph % (Auto) [place] % (Auto) Eos % (Auto) Lymph # [place] # Seg Neutrophils % Seg Neuts % (Manual) Monocytes % (Manual) Seg Neutrophils # PT INR POC ABG pH POC ABG pCO2 POC ABG pO2 Sodium Chloride Carbon Dioxide BUN Creatinine Glucose POC Glucose 251 H Calcium Total Creatine Kinase Troponin T C-Reactive Protein 34.90 H NT-Pro-B Natriuret Pep Albumin Triglycerides Cholesterol LDL Cholesterol Direct HDL Cholesterol Urine Creatinine Vancomycin Trough Miscellaneous Test Flexitest 1 H 09/27/17 09/28/17 09/28/17 23:49 07:00 07:00 WBC RBC 3.44 L Hgb 9.9 L Hct 29.6 L MCH RDW Lymph % (Auto) [place] % (Auto) Eos % (Auto) Lymph # 1.0 L [place] # Seg Neutrophils % 76.2 H Seg Neuts % (Manual) Monocytes % (Manual) Seg Neutrophils # PT INR POC ABG pH POC ABG pCO2 POC ABG pO2 Sodium 128 L Chloride 92.1 L Carbon Dioxide 20 L BUN 40 H Creatinine 3.1 H D Glucose 199 H POC Glucose 233 H Calcium 7.5 L Total Creatine Kinase Troponin T C-Reactive Protein NT-Pro-B Natriuret Pep Albumin Triglycerides Cholesterol LDL Cholesterol Direct HDL Cholesterol Urine Creatinine Vancomycin Trough Miscellaneous Test 09/28/17 09/28/17 09/28/17 07:00 08:03 13:31 WBC RBC Hgb Hct MCH RDW Lymph % (Auto) [place] % (Auto) Eos % (Auto) Lymph # [place] # Seg Neutrophils % Seg Neuts % (Manual) Monocytes % (Manual) Seg Neutrophils # PT INR POC ABG pH POC ABG pCO2 POC ABG pO2 Sodium Chloride Carbon Dioxide BUN Creatinine Glucose POC Glucose 165 H 237 H Calcium Total Creatine Kinase Troponin T C-Reactive Protein NT-Pro-B Natriuret Pep Albumin Triglycerides Cholesterol LDL Cholesterol Direct HDL Cholesterol Urine Creatinine Vancomycin Trough 36.3 H Miscellaneous Test 09/28/17 09/28/17 09/29/17 16:20 22:12 05:20 WBC RBC Hgb 11.4 L Hct 34.5 L MCH RDW Lymph % (Auto) 10.5 L [place] % (Auto) 9.1 H Eos % (Auto) Lymph # 0.5 L [place] # Seg Neutrophils % 75.8 H Seg Neuts % (Manual) Monocytes % (Manual) Seg Neutrophils # PT INR POC ABG pH POC ABG pCO2 POC ABG pO2 Sodium Chloride Carbon Dioxide BUN Creatinine Glucose POC Glucose 323 H 164 H Calcium Total Creatine Kinase Troponin T C-Reactive Protein NT-Pro-B Natriuret Pep Albumin Triglycerides Cholesterol LDL Cholesterol Direct HDL Cholesterol Urine Creatinine Vancomycin Trough Miscellaneous Test 09/29/17 09/29/17 09/29/17 05:20 07:53 16:21 WBC RBC Hgb Hct MCH RDW Lymph % (Auto) [place] % (Auto) Eos % (Auto) Lymph # [place] # Seg Neutrophils % Seg Neuts % (Manual) Monocytes % (Manual) Seg Neutrophils # PT INR POC ABG pH POC ABG pCO2 POC ABG pO2 Sodium 128 L Chloride 91.6 L Carbon Dioxide 21 L BUN 51 H Creatinine 3.8 H Glucose 161 H POC Glucose 128 H 141 H Calcium Total Creatine Kinase Troponin T C-Reactive Protein NT-Pro-B Natriuret Pep Albumin Triglycerides Cholesterol LDL Cholesterol Direct HDL Cholesterol Urine Creatinine Vancomycin Trough Miscellaneous Test 09/29/17 09/30/17 09/30/17 22:17 05:21 05:21 WBC RBC Hgb 10.3 L Hct 32.1 L MCH 27 L RDW Lymph % (Auto) 11.6 L [place] % (Auto) 9.3 H Eos % (Auto) 4.9 H Lymph # 0.8 L [place] # Seg Neutrophils % 73.6 H Seg Neuts % (Manual) Monocytes % (Manual) Seg Neutrophils # PT INR POC ABG pH POC ABG pCO2 POC ABG pO2 Sodium 127 L Chloride 90.9 L Carbon Dioxide BUN 52 H Creatinine 4.5 H Glucose 187 H POC Glucose 158 H Calcium 7.9 L Total Creatine Kinase Troponin T C-Reactive Protein NT-Pro-B Natriuret Pep Albumin Triglycerides Cholesterol LDL Cholesterol Direct HDL Cholesterol Urine Creatinine Vancomycin Trough Miscellaneous Test 09/30/17 09/30/17 09/30/17 07:47 11:55 21:44 WBC RBC Hgb Hct MCH RDW Lymph % (Auto) [place] % (Auto) Eos % (Auto) Lymph # [place] # Seg Neutrophils % Seg Neuts % (Manual) Monocytes % (Manual) Seg Neutrophils # PT INR POC ABG pH POC ABG pCO2 POC ABG pO2 Sodium Chloride Carbon Dioxide BUN Creatinine Glucose POC Glucose 137 H 184 H 141 H Calcium Total Creatine Kinase Troponin T C-Reactive Protein NT-Pro-B Natriuret Pep Albumin Triglycerides Cholesterol LDL Cholesterol Direct HDL Cholesterol Urine Creatinine Vancomycin Trough Miscellaneous Test 10/01/17 10/01/17 10/01/17 06:03 06:03 16:37 WBC RBC Hgb 11.3 L Hct 33.6 L MCH RDW Lymph % (Auto) 11.2 L [place] % (Auto) 10.2 H Eos % (Auto) Lymph # 1.1 L [place] # 1.0 H Seg Neutrophils % 74.5 H Seg Neuts % (Manual) Monocytes % (Manual) Seg Neutrophils # PT INR POC ABG pH POC ABG pCO2 POC ABG pO2 Sodium 130 L Chloride 92.3 L Carbon Dioxide BUN 53 H Creatinine 4.5 H Glucose POC Glucose 125 H Calcium 8.0 L Total Creatine Kinase Troponin T C-Reactive Protein NT-Pro-B Natriuret Pep Albumin Triglycerides Cholesterol LDL Cholesterol Direct HDL Cholesterol Urine Creatinine Vancomycin Trough Miscellaneous Test 10/01/17 10/01/17 10/02/17 20:41 21:47 06:21 WBC RBC Hgb 11.5 L Hct 34.5 L MCH RDW 15.3 H Lymph % (Auto) [place] % (Auto) 12.4 H Eos % (Auto) Lymph # 0.9 L [place] # Seg Neutrophils % 70.6 H Seg Neuts % (Manual) Monocytes % (Manual) Seg Neutrophils # PT INR POC ABG pH POC ABG pCO2 POC ABG pO2 Sodium Chloride Carbon Dioxide BUN Creatinine Glucose POC Glucose 115 H Calcium Total Creatine Kinase Troponin T C-Reactive Protein 7.60 H NT-Pro-B Natriuret Pep Albumin Triglycerides Cholesterol LDL Cholesterol Direct HDL Cholesterol Urine Creatinine Vancomycin Trough Miscellaneous Test 10/02/17 10/02/17 10/02/17 06:21 07:47 21:56 WBC RBC Hgb Hct MCH RDW Lymph % (Auto) [place] % (Auto) Eos % (Auto) Lymph # [place] # Seg Neutrophils % Seg Neuts % (Manual) Monocytes % (Manual) Seg Neutrophils # PT INR POC ABG pH POC ABG pCO2 POC ABG pO2 Sodium 133 L Chloride 92.7 L Carbon Dioxide BUN 51 H Creatinine 4.7 H Glucose 113 H POC Glucose 118 H 154 H Calcium 8.0 L Total Creatine Kinase Troponin T C-Reactive Protein NT-Pro-B Natriuret Pep Albumin Triglycerides Cholesterol LDL Cholesterol Direct HDL Cholesterol Urine Creatinine Vancomycin Trough Miscellaneous Test 10/03/17 10/03/17 10/03/17 06:13 06:13 16:50 WBC RBC Hgb 10.7 L Hct 31.9 L MCH RDW 15.6 H Lymph % (Auto) [place] % (Auto) Eos % (Auto) Lymph # [place] # Seg Neutrophils % Seg Neuts % (Manual) Monocytes % (Manual) Seg Neutrophils # PT INR POC ABG pH POC ABG pCO2 POC ABG pO2 Sodium 134 L Chloride 95.3 L Carbon Dioxide BUN 32 H Creatinine 3.7 H Glucose POC Glucose 126 H Calcium 7.8 L Total Creatine Kinase Troponin T C-Reactive Protein NT-Pro-B Natriuret Pep Albumin Triglycerides Cholesterol LDL Cholesterol Direct HDL Cholesterol Urine Creatinine Vancomycin Trough Miscellaneous Test 10/04/17 10/04/17 10/04/17 05:49 05:49 12:01 WBC RBC Hgb 10.8 L Hct 32.3 L MCH RDW 15.6 H Lymph % (Auto) [place] % (Auto) Eos % (Auto) Lymph # [place] # Seg Neutrophils % Seg Neuts % (Manual) 72.0 H Monocytes % (Manual) 9.0 H Seg Neutrophils # PT INR POC ABG pH POC ABG pCO2 POC ABG pO2 Sodium 133 L Chloride 93.7 L Carbon Dioxide BUN 23 H Creatinine 3.2 H Glucose POC Glucose 140 H Calcium 7.8 L Total Creatine Kinase Troponin T C-Reactive Protein NT-Pro-B Natriuret Pep Albumin Triglycerides Cholesterol LDL Cholesterol Direct HDL Cholesterol Urine Creatinine Vancomycin Trough Miscellaneous Test 10/04/17 10/04/17 10/05/17 17:35 20:44 05:34 WBC RBC 5.17 H Hgb Hct MCH 27 L RDW 15.5 H Lymph % (Auto) [place] % (Auto) 13.6 H Eos % (Auto) Lymph # [place] # 0.9 H Seg Neutrophils % Seg Neuts % (Manual) Monocytes % (Manual) Seg Neutrophils # PT INR POC ABG pH POC ABG pCO2 POC ABG pO2 Sodium Chloride Carbon Dioxide BUN Creatinine Glucose POC Glucose 143 H 135 H Calcium Total Creatine Kinase Troponin T C-Reactive Protein NT-Pro-B Natriuret Pep Albumin Triglycerides Cholesterol LDL Cholesterol Direct HDL Cholesterol Urine Creatinine Vancomycin Trough Miscellaneous Test 10/05/17 10/05/17 10/05/17 05:34 12:34 21:29 WBC RBC Hgb Hct MCH RDW Lymph % (Auto) [place] % (Auto) Eos % (Auto) Lymph # [place] # Seg Neutrophils % Seg Neuts % (Manual) Monocytes % (Manual) Seg Neutrophils # PT INR POC ABG pH POC ABG pCO2 POC ABG pO2 Sodium 132 L Chloride 92.7 L Carbon Dioxide BUN 36 H Creatinine 3.7 H Glucose POC Glucose 161 H 191 H Calcium 7.8 L Total Creatine Kinase Troponin T C-Reactive Protein NT-Pro-B Natriuret Pep Albumin Triglycerides Cholesterol LDL Cholesterol Direct HDL Cholesterol Urine Creatinine Vancomycin Trough Miscellaneous Test 10/06/17 10/06/17 10/06/17 05:50 05:50 13:14 WBC RBC Hgb 10.6 L D Hct 32.4 L D MCH RDW 15.5 H Lymph % (Auto) [place] % (Auto) 15.6 H Eos % (Auto) Lymph # [place] # 1.2 H Seg Neutrophils % Seg Neuts % (Manual) Monocytes % (Manual) Seg Neutrophils # PT INR POC ABG pH POC ABG pCO2 POC ABG pO2 Sodium 131 L Chloride 91.9 L Carbon Dioxide BUN 27 H Creatinine 3.0 H Glucose 140 H POC Glucose 162 H Calcium 7.9 L Total Creatine Kinase Troponin T C-Reactive Protein NT-Pro-B Natriuret Pep Albumin Triglycerides Cholesterol LDL Cholesterol Direct HDL Cholesterol Urine Creatinine Vancomycin Trough Miscellaneous Test 10/06/17 10/06/17 10/07/17 15:54 21:48 05:32 WBC RBC Hgb 11.3 L Hct 34.0 L MCH RDW 15.3 H Lymph % (Auto) [place] % (Auto) 13.4 H Eos % (Auto) Lymph # [place] # 1.1 H Seg Neutrophils % Seg Neuts % (Manual) Monocytes % (Manual) Seg Neutrophils # PT INR POC ABG pH POC ABG pCO2 POC ABG pO2 Sodium Chloride Carbon Dioxide BUN Creatinine Glucose POC Glucose 194 H 190 H Calcium Total Creatine Kinase Troponin T C-Reactive Protein NT-Pro-B Natriuret Pep Albumin Triglycerides Cholesterol LDL Cholesterol Direct HDL Cholesterol Urine Creatinine Vancomycin Trough Miscellaneous Test 10/07/17 10/07/17 10/07/17 05:32 05:32 08:43 WBC RBC Hgb Hct MCH RDW Lymph % (Auto) [place] % (Auto) Eos % (Auto) Lymph # [place] # Seg Neutrophils % Seg Neuts % (Manual) Monocytes % (Manual) Seg Neutrophils # PT INR POC ABG pH POC ABG pCO2 POC ABG pO2 Sodium 134 L Chloride 95.7 L Carbon Dioxide BUN 35 H Creatinine 3.3 H Glucose 101 H POC Glucose 131 H Calcium 8.1 L Total Creatine Kinase Troponin T C-Reactive Protein NT-Pro-B Natriuret Pep Albumin 2.8 L Triglycerides Cholesterol LDL Cholesterol Direct HDL Cholesterol Urine Creatinine Vancomycin Trough Miscellaneous Test 10/07/17 10/07/17 10/07/17 12:41 21:34 Unknown WBC RBC Hgb Hct MCH RDW Lymph % (Auto) [place] % (Auto) Eos % (Auto) Lymph # [place] # Seg Neutrophils % Seg Neuts % (Manual) Monocytes % (Manual) Seg Neutrophils # PT INR POC ABG pH POC ABG pCO2 POC ABG pO2 Sodium Chloride Carbon Dioxide BUN Creatinine Glucose POC Glucose 165 H 167 H Calcium Total Creatine Kinase Troponin T C-Reactive Protein NT-Pro-B Natriuret Pep Albumin Triglycerides Cholesterol LDL Cholesterol Direct HDL Cholesterol Urine Creatinine 45.7 H Vancomycin Trough Miscellaneous Test 10/08/17 10/08/17 10/08/17 04:59 04:59 04:59 WBC 11.2 H RBC Hgb 10.7 L Hct 32.5 L MCH RDW 15.5 H Lymph % (Auto) 13.2 L [place] % (Auto) 12.7 H Eos % (Auto) Lymph # [place] # 1.4 H Seg Neutrophils % 72.1 H Seg Neuts % (Manual) Monocytes % (Manual) Seg Neutrophils # 8.1 H PT 15.7 H INR 1.19 H POC ABG pH POC ABG pCO2 POC ABG pO2 Sodium 134 L Chloride 96.3 L Carbon Dioxide BUN 39 H Creatinine 3.4 H Glucose 105 H POC Glucose Calcium 8.3 L Total Creatine Kinase Troponin T C-Reactive Protein NT-Pro-B Natriuret Pep Albumin Triglycerides Cholesterol LDL Cholesterol Direct HDL Cholesterol Urine Creatinine Vancomycin Trough Miscellaneous Test 10/08/17 10/08/17 16:31 Unknown WBC RBC Hgb Hct MCH RDW Lymph % (Auto) [place] % (Auto) Eos % (Auto) Lymph # [place] # Seg Neutrophils % Seg Neuts % (Manual) Monocytes % (Manual) Seg Neutrophils # PT INR POC ABG pH POC ABG pCO2 POC ABG pO2 Sodium Chloride Carbon Dioxide BUN Creatinine Glucose POC Glucose 276 H Calcium Total Creatine Kinase Troponin T C-Reactive Protein NT-Pro-B Natriuret Pep Albumin Triglycerides Cholesterol LDL Cholesterol Direct HDL Cholesterol Urine Creatinine 45.5 H Vancomycin Trough Miscellaneous Test
[2017-10-08] MEDS: AMBIEN PO PRN (21:15)
[2017-10-08] MEDS: PRAVACHOL PO SCH (21:16)
[2017-10-08] MEDS: LEVEMIR SUB-Q SCH (22:51)
[2017-10-09] MEDS: LOPRESSOR PO SCH ×5 (06:06→22:43)
[2017-10-09] MEDS: APRESOLINE PO SCH ×3 (06:07→22:44)
[2017-10-09 06:37] LABS: Basophils # (Auto) 0.1 K/mm3 (0.0-0.1); Basophils % (Auto) 0.6 % (0.0-1.8); Eosinophils # (Auto) 0.1 K/mm3 (0.0-0.4); Eosinophils % (Auto) 1.3 % (0.0-4.3); Hematocrit 31.8 % (35.5-45.6); Hemoglobin 10.5 gm/dl (11.8-15.2); Lymphocytes # (Auto) 0.9 K/mm3 (1.2-5.4); Lymphocytes % (Auto) 8.5 % (13.4-35.0); Mean Corpuscular HGB Conc 33 % (32-34); Mean Corpuscular Hemoglobin 28 pg (28-32); Mean Corpuscular Volume 85 fl (84-94); Monocytes # (Auto) 1.4 K/mm3 (0.0-0.8); Monocytes % (Auto) 13.1 % (0.0-7.3); Platelet Count 350 K/mm3 (140-440); Red Blood Count 3.73 M/mm3 (3.65-5.03); Red Cell Distribution Width 15.8 % (13.2-15.2)
[2017-10-09 06:50] LABS: Calcium 8.5 mg/dL (8.4-10.2)
[2017-10-09] MEDS: NOVOLOG SUB-Q SCH ×4 (07:48→22:45)
[2017-10-09] MEDS: PROTONIX PO SCH (10:00)
[2017-10-09] MEDS: LOVENOX SUB-Q SCH (10:00)
[2017-10-09] MEDS: BABY ASPIRIN PO SCH (10:00)
--- NOTE | 2017-10-09 10:41 | Progress Note ---
Assessment and Plan (1) Bilateral pneumonia Current Visit: Yes Status: Acute Qualifiers: Pneumonia type: due to unspecified organism Lung location: unspecified part of lung Qualified Code(s): J18.9 - Pneumonia, unspecified organism Plan to address problem: off antibiotics As per primary team (2) severe renal failure Current Visit: Yes Status: Acute Plan to address problem: Cr is slowly trending down, no worsening post LHC according to patient he is urinating fine but no UOP recorded if Cr is stable by tomorrow can d/c vascath and discharge from renal standpoint Renally dose medications Obtain daily weight Lyles Catheter: No Strict intake and output (3) Hyponatremia Current Visit: Yes Status: Acute Plan to address problem: Maintain fluid restriction of 750 ml per day (4) Systolic heart failure Current Visit: Yes Status: Acute Plan to address problem: Cardiology on board, EF 10-15%, s/p LHC but no stent placement was required (5) CVA (cerebral vascular accident) Current Visit: Yes Status: Acute Plan to address problem: per neurology Subjective Date of service: 10/09/17 Principal diagnosis: stroke Interval history: tolerated LHC yesterday Objective - Vital Signs Vital signs: Vital Signs - 12hr 10/09/17 10/09/17 10/09/17 00:08 04:46 07:10 Temperature 98.9 F 99.2 F Pulse Rate 104 H 120 H 104 H Respiratory 20 20 Rate Blood Pressure 109/76 136/98 116/83 O2 Sat by Pulse 99 90 95 Oximetry - General Appearance General appearance: well-developed, well-nourished, appears stated age EENT: ATNC, PERRL, mucous membranes moist Neck: no JVD, no carotid bruit Respiratory: Present: Clear to Ascultation. Absent: Rales, Ronchi Cardiology: regular, S1S2 Gastrointestinal: normoactive bowel sounds, no tenderness, no distended Integumentary: no rash, warm and dry Neurologic: no focal deficit, no asterixis, alert and oriented x3 Musculoskeletal: other (no edema in BLE) Psychiatric: mood/affect appropriate, cooperative - Lab 10/09/17 05:49 10/09/17 05:49 Most recent lab results Calcium 8.5 mg/dL (8.4-10.2) 10/09/17 05:49 Phosphorus 3.80 mg/dL (2.5-4.5) 10/09/17 05:49 Magnesium 1.70 mg/dL (1.7-2.3) 09/26/17 05:35 Urine Creatinine 45.5 mg/dL (0.1-20.0) H 10/08/17 Unknown
--- NOTE | 2017-10-09 10:58 | Progress Note ---
Assessment and Plan Assessment and plan: Acute hypoxic respiratory failure -BIPAP as clinically indicated -Etiology secondary to bilateral pneumonia Acute Renal failure -Patient receiving hemodialysis . Creatinine 3.1 today -Assess need for HD on daily basis as per Nephrology -Avoid Nephrotoxic agents -Renally dose medications -Obtain daily weights -Monitor intake and output -Monitor renal function closely -Renal ultrasound showed no hydronephrosis -Nephrology following -If renal function stable, may dc home tomorrow Sepsis -Etiology secondary to pneumonia. -follow up Legionella urine antigen, Streptococcus pneumoniae urine antigen -Blood cultures thus far negative. -continue abx per ID For MAYKEL today Bilateral pneumonia - On IV antibiotics , Levaquin and Zyvox - Pulmonary consult appreciated Cardiomyopathy - EF of 10-15%, systolic dysfunction - continue with CHF medications -Patient previously on milrinone drip per cardiology - Cardiology following - For cardiac cath today. NSVT -Patient had run of V. tach -Consider ICD as outpatient per cardiology Acute on chronic systolic heart failure. -Continue aggressive medical therapy with IV milrinone and IV diuresis. Hyponatremia -Fluid restriction of 750ml per day -Follow BMP DM with hyperglycemia - SSI and basal insulin Acute ischemic stroke left occipital lobe. On Aspirin Neurology following Right homonymous visual field defect -Neuro following. -Ophthalmology outpatient follow-up DVT prophylaxis - On lovenox - patient is not stable enough to transfer to [facility]. Disposition. -Continue inpatient management. [phone] , [place] number to arrange for follow-up at the time of discharge. History Interval history: Right visual field defect No chest pain, No SOB Cardiac cath yesterday Hospitalist Physical - Physical exam Narrative exam: GEN APPEARANCE : Not in acute distress,obese HEENT: Normocephalic, Atraumatic NECK : supple, no JVD LUNGS: Clear to auscultation bilaterally, no rales, no wheeze HEART: S1 and S2 regular, no murmurs, rubs or gallop, ABD: Soft, non tender, non distended, normal bowel sounds EXT:No edema, no clubbing, no cyanosis NEURO: Awake, alert,oriented x 3, right visual field defect - Constitutional Vitals: Temp Pulse Resp BP Pulse Ox 99.2 F 104 H 20 116/83 95 10/09/17 04:46 10/09/17 07:10 10/09/17 04:46 10/09/17 07:10 10/09/17 07:10 General appearance: Present: no acute distress Results - Labs CBC & Chem 7: 10/09/17 05:49 10/09/17 05:49 Labs: Laboratory Last Values WBC 10.6 K/mm3 (4.5-11.0) 10/09/17 05:49 RBC 3.73 M/mm3 (3.65-5.03) 10/09/17 05:49 Hgb 10.5 gm/dl (11.8-15.2) L 10/09/17 05:49 Hct 31.8 % (35.5-45.6) L 10/09/17 05:49 MCV 85 fl (84-94) 10/09/17 05:49 MCH 28 pg (28-32) 10/09/17 05:49 MCHC 33 % (32-34) 10/09/17 05:49 RDW 15.8 % (13.2-15.2) H 10/09/17 05:49 Plt Count 350 K/mm3 (140-440) 10/09/17 05:49 Lymph % (Auto) 8.5 % (13.4-35.0) L 10/09/17 05:49 [place] % (Auto) 13.1 % (0.0-7.3) H 10/09/17 05:49 Eos % (Auto) 1.3 % (0.0-4.3) 10/09/17 05:49 Baso % (Auto) 0.6 % (0.0-1.8) 10/09/17 05:49 Lymph # 0.9 K/mm3 (1.2-5.4) L 10/09/17 05:49 [place] # 1.4 K/mm3 (0.0-0.8) H 10/09/17 05:49 Eos # 0.1 K/mm3 (0.0-0.4) 10/09/17 05:49 Baso # 0.1 K/mm3 (0.0-0.1) 10/09/17 05:49 Add Manual Diff Complete 10/04/17 05:49 Total Counted 100 10/04/17 05:49 Seg Neutrophils % 76.5 % (40.0-70.0) H 10/09/17 05:49 Seg Neuts % (Manual) 72.0 % (40.0-70.0) H 10/04/17 05:49 Band Neutrophils % 0 % 10/04/17 05:49 Lymphocytes % (Manual) 17.0 % (13.4-35.0) 10/04/17 05:49 Reactive Lymphs % (Man) 0 % 10/04/17 05:49 Monocytes % (Manual) 9.0 % (0.0-7.3) H 10/04/17 05:49 Eosinophils % (Manual) 2.0 % (0.0-4.3) 10/04/17 05:49 Basophils % (Manual) 0 % (0.0-1.8) 10/04/17 05:49 Metamyelocytes % 0 % 10/04/17 05:49 Myelocytes % 0 % 10/04/17 05:49 Promyelocytes % 0 % 10/04/17 05:49 Blast Cells % 0 % 10/04/17 05:49 Nucleated RBC % Not Reportable 10/04/17 05:49 Seg Neutrophils # 8.1 K/mm3 (1.8-7.7) H 10/09/17 05:49 Seg Neutrophils # Man 5.3 K/mm3 (1.8-7.7) 10/04/17 05:49 Band Neutrophils # 0.0 K/mm3 10/04/17 05:49 Lymphocytes # (Manual) 1.3 K/mm3 (1.2-5.4) 10/04/17 05:49 Abs React Lymphs (Man) 0.0 K/mm3 10/04/17 05:49 Monocytes # (Manual) 0.7 K/mm3 (0.0-0.8) 10/04/17 05:49 Eosinophils # (Manual) 0.1 K/mm3 (0.0-0.4) 10/04/17 05:49 Basophils # (Manual) 0.0 K/mm3 (0.0-0.1) 10/04/17 05:49 Metamyelocytes # 0.0 K/mm3 10/04/17 05:49 Myelocytes # 0.0 K/mm3 10/04/17 05:49 Promyelocytes # 0.0 K/mm3 10/04/17 05:49 Blast Cells # 0.0 K/mm3 10/04/17 05:49 WBC Morphology Not Reportable 10/04/17 05:49 Hypersegmented Neuts Not Reportable 10/04/17 05:49 Hyposegmented Neuts Not Reportable 10/04/17 05:49 Hypogranular Neuts Not Reportable 10/04/17 05:49 Smudge Cells Not Reportable 10/04/17 05:49 Toxic Granulation Not Reportable 10/04/17 05:49 Toxic Vacuolation Not Reportable 10/04/17 05:49 Dohle Bodies Not Reportable 10/04/17 05:49 Pelger-Huet Anomaly Not Reportable 10/04/17 05:49 Diaz Rods Not Reportable 10/04/17 05:49 Platelet Estimate Appears normal 10/04/17 05:49 Clumped Platelets Not Reportable 10/04/17 05:49 Plt Clumps, EDTA Not Reportable 10/04/17 05:49 Large Platelets Not Reportable 10/04/17 05:49 Giant Platelets Not Reportable 10/04/17 05:49 Platelet Satelliting Not Reportable 10/04/17 05:49 Plt Morphology Comment Not Reportable 10/04/17 05:49 RBC Morphology Not Reportable 10/04/17 05:49 Dimorphic RBCs Not Reportable 10/04/17 05:49 Polychromasia Few 10/04/17 05:49 Hypochromasia Not Reportable 10/04/17 05:49 Poikilocytosis Not Reportable 10/04/17 05:49 Anisocytosis 1+ 10/04/17 05:49 Microcytosis Not Reportable 10/04/17 05:49 Macrocytosis Not Reportable 10/04/17 05:49 Spherocytes Not Reportable 10/04/17 05:49 Pappenheimer Bodies Not Reportable 10/04/17 05:49 Sickle Cells Not Reportable 10/04/17 05:49 Target Cells Not Reportable 10/04/17 05:49 Tear Drop Cells Not Reportable 10/04/17 05:49 Ovalocytes Not Reportable 10/04/17 05:49 Helmet Cells Not Reportable 10/04/17 05:49 [place] Bodies Not Reportable 10/04/17 05:49 [place] Rings Not Reportable 10/04/17 05:49 [place] Cells Not Reportable 10/04/17 05:49 Bite Cells Not Reportable 10/04/17 05:49 Crenated Cell Not Reportable 10/04/17 05:49 Elliptocytes Not Reportable 10/04/17 05:49 Acanthocytes (Spur) Not Reportable 10/04/17 05:49 Rouleaux Not Reportable 10/04/17 05:49 Hemoglobin C Crystals Not Reportable 10/04/17 05:49 Schistocytes Not Reportable 10/04/17 05:49 Malaria parasites Not Reportable 10/04/17 05:49 Dash Bodies Not Reportable 10/04/17 05:49 Hem Pathologist Commnt No 10/04/17 05:49 PT 15.7 Sec. (12.2-14.9) H 10/08/17 04:59 INR 1.19 (0.87-1.13) H 10/08/17 04:59 POC ABG pH 7.459 (7.35-7.45) H 09/23/17 15:04 POC ABG pCO2 34.8 (35-45) L 09/23/17 15:04 POC ABG pO2 54 (80-105) L 09/23/17 15:04 POC ABG HCO3 24.7 09/23/17 15:04 POC ABG Total CO2 26 09/23/17 15:04 POC ABG O2 Sat 89 09/23/17 15:04 POC ABG Base Excess 1 09/23/17 15:04 FiO2 21 % 09/23/17 15:04 Sodium 136 mmol/L (137-145) L 10/09/17 05:49 Potassium 4.3 mmol/L (3.6-5.0) 10/09/17 05:49 Chloride 98.1 mmol/L (98-107) 10/09/17 05:49 Carbon Dioxide 22 mmol/L (22-30) 10/09/17 05:49 Anion Gap 20 mmol/L 10/09/17 05:49 BUN 39 mg/dL (9-20) H 10/09/17 05:49 Creatinine 3.1 mg/dL (0.8-1.5) H 10/09/17 05:49 Estimated GFR 27 ml/min 10/09/17 05:49 BUN/Creatinine Ratio 13 % 10/09/17 05:49 Glucose 139 mg/dL (75-100) H 10/09/17 05:49 POC Glucose 121 (70-105) H 10/09/17 08:47 Osmolality 299 Mosm/kg 09/30/17 05:21 Calcium 8.5 mg/dL (8.4-10.2) 10/09/17 05:49 Phosphorus 3.80 mg/dL (2.5-4.5) 10/09/17 05:49 Magnesium 1.70 mg/dL (1.7-2.3) 09/26/17 05:35 Total Bilirubin 0.40 mg/dL (0.1-1.2) 10/07/17 05:32 Direct Bilirubin < 0.2 mg/dL (0-0.2) 10/07/17 05:32 AST 21 units/L (5-40) 10/07/17 05:32 ALT 32 units/L (7-56) 10/07/17 05:32 Alkaline Phosphatase 119 units/L (35-129) 10/07/17 05:32 Total Creatine Kinase 170 units/L (55-170) 09/23/17 04:10 CK-MB (CK-2) 1.4 ng/mL (0.0-4.0) 09/23/17 04:10 CK-MB (CK-2) Rel Index 0.8 (0-4) 09/23/17 04:10 Troponin T 0.287 ng/mL (0.00-0.029) H* 09/23/17 04:10 C-Reactive Protein 7.60 mg/dL (0.00-1.30) H 10/01/17 20:41 NT-Pro-B Natriuret Pep 5093 pg/mL (0-450) H 09/22/17 21:31 Total Protein 7.2 g/dL (6.3-8.2) 10/07/17 05:32 Albumin 2.8 g/dL (3.9-5) L 10/07/17 05:32 Albumin/Globulin Ratio 0.6 % 10/07/17 05:32 Triglycerides 226 mg/dL (2-149) H 09/22/17 21:31 Cholesterol 235 mg/dL (50-199) H 09/22/17 21:31 LDL Cholesterol Direct 164 mg/dL (50-130) H 09/22/17 21:31 HDL Cholesterol 26 mg/dL (40-59) L 09/22/17 21:31 Cholesterol/HDL Ratio 9.03 % 09/22/17 21:31 Urine Eosinophils None seen (None Seen) 09/29/17 Unknown Urine Total Volume 2100 10/08/17 Unknown Urine Creatinine 45.5 mg/dL (0.1-20.0) H 10/08/17 Unknown Ur Creatinine 24 Hour 1.0 (0.8-2.8) 10/07/17 Unknown Height (in) 69.0 inches 10/08/17 Unknown Weight (lb) 220.0 lbs 10/08/17 Unknown Creatinine Clearance 15 10/08/17 Unknown Vancomycin Trough 36.3 ug/mL (5.0-20.0) H 09/28/17 07:00 Hepatitis A IgM Ab Non-reactive (NonReactive) 10/02/17 17:35 Hep Bs Antigen Non-reactive (Negative) 10/02/17 17:35 Hep B Core IgM Ab Non-reactive (NonReactive) 10/02/17 17:35 Hepatitis C Antibody Non-reactive (NonReactive) 10/02/17 17:35 HIV-1 RNA PCR copies/ml TNR 09/27/17 21:18 HIV-1 RNA (PCR) log TNR 09/27/17 21:18 HIV 1&2 Antibody Rapid Non react (Non React) 09/27/17 21:18 HIV P24 Antigen Non react (Non React) 09/27/17 21:18 Miscellaneous Test Flexitest 1 H 09/27/17 21:19
--- NOTE | 2017-10-09 11:45 | Progress Note ---
Assessment and Plan Acute CVA Pneumonia Chronic systolic heart failure Acute renal failure initiated on dialysis Cardiomyopathy, nonischemic EF 10-15% on echocardiogram. no significant obstructive CAD on [facility] this admission Diabetes Hypertension Hyperlipidemia Recommendations: Patient refused a MAYKEL today. Continue medical therapy for his nonischemic cardiomyopathy. Ultimately, patient will benefit from oral anticoagulation given CVA in the setting of dilated cardiomyopathy. Will defer to neurology decision of when to initiate anticoagulation safely. Subjective Date of service: 10/09/17 Principal diagnosis: stroke Interval history: Patient refused planned MAYKEL today. Objective Vital Signs Temp Pulse Pulse Resp BP BP Pulse Ox 10/09/17 10:00 104 H 10/09/17 07:10 104 H 116/83 95 10/09/17 04:46 99.2 F 120 H 20 136/98 90 10/09/17 00:08 98.9 F 104 H 20 109/76 99 10/08/17 22:00 112 H 99 10/08/17 20:37 99.3 F 111 H 20 123/93 95 10/08/17 20:14 99.3 F 115 H 18 123/93 95 10/08/17 16:29 112 H 130/86 10/08/17 14:28 118 H 128/102 10/08/17 13:40 119 H 89 10/08/17 13:39 98.2 F 118 H 18 128/102 93 - Physical Examination General: No Apparent Distress Cardiac: Positive: Reg Rate and Rhythm Neuro: Positive: Grossly Intact - Labs and Meds CBC 10/09/17 Range/Units 05:49 WBC 10.6 (4.5-11.0) K/mm3 RBC 3.73 (3.65-5.03) M/mm3 Hgb 10.5 L (11.8-15.2) gm/dl Hct 31.8 L (35.5-45.6) % Plt Count 350 (140-440) K/mm3 Lymph # 0.9 L (1.2-5.4) K/mm3 [place] # 1.4 H (0.0-0.8) K/mm3 Eos # 0.1 (0.0-0.4) K/mm3 Baso # 0.1 (0.0-0.1) K/mm3 Comprehensive Metabolic Panel 10/09/17 Range/Units 05:49 Sodium 136 L (137-145) mmol/L Potassium 4.3 (3.6-5.0) mmol/L Chloride 98.1 (98-107) mmol/L Carbon Dioxide 22 (22-30) mmol/L BUN 39 H (9-20) mg/dL Creatinine 3.1 H (0.8-1.5) mg/dL Glucose 139 H (75-100) mg/dL Calcium 8.5 (8.4-10.2) mg/dL - Imaging and Cardiology EKG: image reviewed
--- NOTE | 2017-10-09 12:36 | XRay Report ---
ROUTINE CHEST, TWO VIEWS: HISTORY: Follow up pulmonary infiltrates. Bilateral pulmonary edema or infiltrates have resolved since 09/30/17. The lungs are generally clear. Mild cardiomegaly is stable. Right venous catheter terminates in the cavoatrial junction. IMPRESSION: Cardiomegaly. Lungs clear.
--- NOTE | 2017-10-09 17:21 | Progress Note ---
Subjective Date of service: 10/09/17 Principal diagnosis: stroke Interval history: No exam needed. Since he refused MAYKEL, would suggest anticoagulation but safest to wait 3 weeks from stroke onset, allow cerebral autoregulation of blood flow and blood pressure to recover. Could start Coumadin 2 weeks from stroke, since will take a week to build up to therapeutic if starting for example with 5 mg per day. If using NOAC, which kicks in sooner, would wait the full 3 weeks. Objective - Vital Sign Vital Signs - 12hr 10/09/17 10/09/17 10/09/17 07:10 10:00 12:42 Temperature 98.3 F Pulse Rate 104 H 105 H Pulse Rate [ 104 H From Monitor] Respiratory 18 Rate Blood Pressure 116/83 114/85 O2 Sat by Pulse 95 95 Oximetry 10/09/17 15:58 Temperature Pulse Rate Pulse Rate [ From Monitor] Respiratory Rate Blood Pressure 114/85 O2 Sat by Pulse Oximetry - Laboratory Findings CBC and BMP: 10/09/17 05:49 10/09/17 05:49 Abnormal Lab Findings: Abnormal Labs 09/22/17 09/22/17 09/22/17 21:30 21:31 21:31 WBC RBC Hgb Hct MCH RDW 15.3 H Lymph % (Auto) [place]mer[place]da % (Auto) 9.6 H Eos % (Auto) Lymph # [place]mer[place]da # 0.9 H Seg Neutrophils % 72.0 H Seg Neuts % (Manual) Monocytes % (Manual) Seg Neutrophils # PT INR POC ABG pH POC ABG pCO2 POC ABG pO2 Sodium Chloride Carbon Dioxide BUN Creatinine Glucose POC Glucose Calcium Total Creatine Kinase 371 H Troponin T 0.260 H* C-Reactive Protein NT-Pro-B Natriuret Pep 5093 H Albumin Triglycerides 226 H Cholesterol 235 H LDL Cholesterol Direct 164 H HDL Cholesterol 26 L Urine Creatinine Vancomycin Trough Miscellaneous Test 09/22/17 09/22/17 09/23/17 22:54 22:54 04:00 WBC RBC Hgb Hct MCH RDW Lymph % (Auto) [place]mer[place]da % (Auto) 11.9 H Eos % (Auto) Lymph # [place] # Seg Neutrophils % Seg Neuts % (Manual) Monocytes % (Manual) Seg Neutrophils # PT INR POC ABG pH POC ABG pCO2 POC ABG pO2 Sodium 129 L Chloride 91.6 L Carbon Dioxide BUN Creatinine 0.7 L Glucose 256 H POC Glucose Calcium 7.9 L Total Creatine Kinase 211 H Troponin T 0.344 H* D C-Reactive Protein NT-Pro-B Natriuret Pep Albumin Triglycerides Cholesterol LDL Cholesterol Direct HDL Cholesterol Urine Creatinine Vancomycin Trough Miscellaneous Test 09/23/17 09/23/17 09/23/17 04:00 04:10 09:09 WBC RBC Hgb Hct MCH RDW Lymph % (Auto) [place]da % (Auto) Eos % (Auto) Lymph # [place] # Seg Neutrophils % Seg Neuts % (Manual) Monocytes % (Manual) Seg Neutrophils # PT INR POC ABG pH POC ABG pCO2 POC ABG pO2 Sodium 136 L D Chloride 95.3 L Carbon Dioxide BUN Creatinine Glucose 181 H POC Glucose 166 H Calcium 7.7 L Total Creatine Kinase Troponin T 0.287 H* C-Reactive Protein NT-Pro-B Natriuret Pep Albumin Triglycerides Cholesterol LDL Cholesterol Direct HDL Cholesterol Urine Creatinine Vancomycin Trough Miscellaneous Test 09/23/17 09/23/17 09/23/17 11:40 13:19 15:04 WBC RBC Hgb Hct MCH RDW Lymph % (Auto) [place]da % (Auto) Eos % (Auto) Lymph # [place] # Seg Neutrophils % Seg Neuts % (Manual) Monocytes % (Manual) Seg Neutrophils # PT INR POC ABG pH 7.459 H POC ABG pCO2 34.8 L POC ABG pO2 54 L Sodium Chloride Carbon Dioxide BUN Creatinine Glucose POC Glucose 221 H 267 H Calcium Total Creatine Kinase Troponin T C-Reactive Protein NT-Pro-B Natriuret Pep Albumin Triglycerides Cholesterol LDL Cholesterol Direct HDL Cholesterol Urine Creatinine Vancomycin Trough Miscellaneous Test 09/23/17 09/23/17 09/24/17 15:57 22:07 04:40 WBC RBC Hgb Hct MCH RDW Lymph % (Auto) [place]da % (Auto) 11.4 H Eos % (Auto) Lymph # [place] # Seg Neutrophils % Seg Neuts % (Manual) Monocytes % (Manual) Seg Neutrophils # PT INR POC ABG pH POC ABG pCO2 POC ABG pO2 Sodium Chloride Carbon Dioxide BUN Creatinine Glucose POC Glucose 281 H 166 H Calcium Total Creatine Kinase Troponin T C-Reactive Protein NT-Pro-B Natriuret Pep Albumin Triglycerides Cholesterol LDL Cholesterol Direct HDL Cholesterol Urine Creatinine Vancomycin Trough Miscellaneous Test 09/24/17 09/24/17 09/24/17 04:40 08:42 12:17 WBC RBC Hgb Hct MCH RDW Lymph % (Auto) [place]da % (Auto) Eos % (Auto) Lymph # [place] # Seg Neutrophils % Seg Neuts % (Manual) Monocytes % (Manual) Seg Neutrophils # PT INR POC ABG pH POC ABG pCO2 POC ABG pO2 Sodium 133 L Chloride 95.6 L Carbon Dioxide BUN Creatinine 0.7 L Glucose 251 H POC Glucose 173 H 209 H Calcium 7.8 L Total Creatine Kinase Troponin T C-Reactive Protein NT-Pro-B Natriuret Pep Albumin Triglycerides Cholesterol LDL Cholesterol Direct HDL Cholesterol Urine Creatinine Vancomycin Trough Miscellaneous Test 09/24/17 09/24/17 09/25/17 16:13 21:21 12:44 WBC RBC Hgb Hct MCH RDW Lymph % (Auto) [place]da % (Auto) Eos % (Auto) Lymph # [place] # Seg Neutrophils % Seg Neuts % (Manual) Monocytes % (Manual) Seg Neutrophils # PT INR POC ABG pH POC ABG pCO2 POC ABG pO2 Sodium Chloride Carbon Dioxide BUN Creatinine Glucose POC Glucose 248 H 152 H 185 H Calcium Total Creatine Kinase Troponin T C-Reactive Protein NT-Pro-B Natriuret Pep Albumin Triglycerides Cholesterol LDL Cholesterol Direct HDL Cholesterol Urine Creatinine Vancomycin Trough Miscellaneous Test 09/25/17 09/25/17 09/26/17 17:18 23:10 05:35 WBC 15.6 H RBC Hgb Hct MCH RDW Lymph % (Auto) [place]da % (Auto) Eos % (Auto) Lymph # [place] # Seg Neutrophils % 78.5 H Seg Neuts % (Manual) Monocytes % (Manual) Seg Neutrophils # 12.2 H PT INR POC ABG pH POC ABG pCO2 POC ABG pO2 Sodium Chloride Carbon Dioxide BUN Creatinine Glucose POC Glucose 186 H 187 H Calcium Total Creatine Kinase Troponin T C-Reactive Protein NT-Pro-B Natriuret Pep Albumin Triglycerides Cholesterol LDL Cholesterol Direct HDL Cholesterol Urine Creatinine Vancomycin Trough Miscellaneous Test 09/26/17 09/26/17 09/26/17 05:35 09:02 12:20 WBC RBC Hgb Hct MCH RDW Lymph % (Auto) [place]da % (Auto) Eos % (Auto) Lymph # [place] # Seg Neutrophils % Seg Neuts % (Manual) Monocytes % (Manual) Seg Neutrophils # PT INR POC ABG pH POC ABG pCO2 POC ABG pO2 Sodium 133 L Chloride 95.2 L Carbon Dioxide BUN Creatinine 0.7 L Glucose 161 H POC Glucose 131 H 199 H Calcium 8.3 L Total Creatine Kinase Troponin T C-Reactive Protein NT-Pro-B Natriuret Pep Albumin Triglycerides Cholesterol LDL Cholesterol Direct HDL Cholesterol Urine Creatinine Vancomycin Trough Miscellaneous Test 09/26/17 09/26/17 09/27/17 16:39 21:45 07:24 WBC RBC Hgb Hct MCH RDW Lymph % (Auto) [place]da % (Auto) Eos % (Auto) Lymph # [place] # Seg Neutrophils % Seg Neuts % (Manual) Monocytes % (Manual) Seg Neutrophils # PT INR POC ABG pH POC ABG pCO2 POC ABG pO2 Sodium Chloride Carbon Dioxide BUN Creatinine Glucose POC Glucose 209 H 194 H 210 H Calcium Total Creatine Kinase Troponin T C-Reactive Protein NT-Pro-B Natriuret Pep Albumin Triglycerides Cholesterol LDL Cholesterol Direct HDL Cholesterol Urine Creatinine Vancomycin Trough Miscellaneous Test 09/27/17 09/27/17 09/27/17 09:20 09:20 11:50 WBC RBC Hgb 11.0 L Hct MCH RDW Lymph % (Auto) [place]da % (Auto) Eos % (Auto) Lymph # [place] # Seg Neutrophils % 77.2 H Seg Neuts % (Manual) Monocytes % (Manual) Seg Neutrophils # PT INR POC ABG pH POC ABG pCO2 POC ABG pO2 Sodium 134 L Chloride 96.1 L Carbon Dioxide BUN 21 H Creatinine Glucose 139 H POC Glucose Calcium 8.0 L Total Creatine Kinase Troponin T C-Reactive Protein NT-Pro-B Natriuret Pep Albumin Triglycerides Cholesterol LDL Cholesterol Direct HDL Cholesterol Urine Creatinine Vancomycin Trough 46.8 H Miscellaneous Test 09/27/17 09/27/17 09/27/17 11:50 12:18 17:00 WBC RBC Hgb 10.7 L Hct 32.1 L D MCH RDW Lymph % (Auto) [place]da % (Auto) Eos % (Auto) Lymph # [place] # Seg Neutrophils % 80.6 H Seg Neuts % (Manual) Monocytes % (Manual) Seg Neutrophils # PT INR POC ABG pH POC ABG pCO2 POC ABG pO2 Sodium Chloride Carbon Dioxide BUN Creatinine Glucose POC Glucose 274 H 169 H Calcium Total Creatine Kinase Troponin T C-Reactive Protein NT-Pro-B Natriuret Pep Albumin Triglycerides Cholesterol LDL Cholesterol Direct HDL Cholesterol Urine Creatinine Vancomycin Trough Miscellaneous Test 09/27/17 09/27/17 09/27/17 21:18 21:19 23:28 WBC RBC Hgb Hct MCH RDW Lymph % (Auto) [place]da % (Auto) Eos % (Auto) Lymph # [place] # Seg Neutrophils % Seg Neuts % (Manual) Monocytes % (Manual) Seg Neutrophils # PT INR POC ABG pH POC ABG pCO2 POC ABG pO2 Sodium Chloride Carbon Dioxide BUN Creatinine Glucose POC Glucose 251 H Calcium Total Creatine Kinase Troponin T C-Reactive Protein 34.90 H NT-Pro-B Natriuret Pep Albumin Triglycerides Cholesterol LDL Cholesterol Direct HDL Cholesterol Urine Creatinine Vancomycin Trough Miscellaneous Test Flexitest 1 H 09/27/17 09/28/17 09/28/17 23:49 07:00 07:00 WBC RBC 3.44 L Hgb 9.9 L Hct 29.6 L MCH RDW Lymph % (Auto) [place]mer[place]da % (Auto) Eos % (Auto) Lymph # 1.0 L [place] # Seg Neutrophils % 76.2 H Seg Neuts % (Manual) Monocytes % (Manual) Seg Neutrophils # PT INR POC ABG pH POC ABG pCO2 POC ABG pO2 Sodium 128 L Chloride 92.1 L Carbon Dioxide 20 L BUN 40 H Creatinine 3.1 H D Glucose 199 H POC Glucose 233 H Calcium 7.5 L Total Creatine Kinase Troponin T C-Reactive Protein NT-Pro-B Natriuret Pep Albumin Triglycerides Cholesterol LDL Cholesterol Direct HDL Cholesterol Urine Creatinine Vancomycin Trough Miscellaneous Test 09/28/17 09/28/17 09/28/17 07:00 08:03 13:31 WBC RBC Hgb Hct MCH RDW Lymph % (Auto) [place]da % (Auto) Eos % (Auto) Lymph # [place] # Seg Neutrophils % Seg Neuts % (Manual) Monocytes % (Manual) Seg Neutrophils # PT INR POC ABG pH POC ABG pCO2 POC ABG pO2 Sodium Chloride Carbon Dioxide BUN Creatinine Glucose POC Glucose 165 H 237 H Calcium Total Creatine Kinase Troponin T C-Reactive Protein NT-Pro-B Natriuret Pep Albumin Triglycerides Cholesterol LDL Cholesterol Direct HDL Cholesterol Urine Creatinine Vancomycin Trough 36.3 H Miscellaneous Test 09/28/17 09/28/17 09/29/17 16:20 22:12 05:20 WBC RBC Hgb 11.4 L Hct 34.5 L MCH RDW Lymph % (Auto) 10.5 L [place] % (Auto) 9.1 H Eos % (Auto) Lymph # 0.5 L [place] # Seg Neutrophils % 75.8 H Seg Neuts % (Manual) Monocytes % (Manual) Seg Neutrophils # PT INR POC ABG pH POC ABG pCO2 POC ABG pO2 Sodium Chloride Carbon Dioxide BUN Creatinine Glucose POC Glucose 323 H 164 H Calcium Total Creatine Kinase Troponin T C-Reactive Protein NT-Pro-B Natriuret Pep Albumin Triglycerides Cholesterol LDL Cholesterol Direct HDL Cholesterol Urine Creatinine Vancomycin Trough Miscellaneous Test 09/29/17 09/29/17 09/29/17 05:20 07:53 16:21 WBC RBC Hgb Hct MCH RDW Lymph % (Auto) [place]da % (Auto) Eos % (Auto) Lymph # [place] # Seg Neutrophils % Seg Neuts % (Manual) Monocytes % (Manual) Seg Neutrophils # PT INR POC ABG pH POC ABG pCO2 POC ABG pO2 Sodium 128 L Chloride 91.6 L Carbon Dioxide 21 L BUN 51 H Creatinine 3.8 H Glucose 161 H POC Glucose 128 H 141 H Calcium Total Creatine Kinase Troponin T C-Reactive Protein NT-Pro-B Natriuret Pep Albumin Triglycerides Cholesterol LDL Cholesterol Direct HDL Cholesterol Urine Creatinine Vancomycin Trough Miscellaneous Test 09/29/17 09/30/17 09/30/17 22:17 05:21 05:21 WBC RBC Hgb 10.3 L Hct 32.1 L MCH 27 L RDW Lymph % (Auto) 11.6 L [place] % (Auto) 9.3 H Eos % (Auto) 4.9 H Lymph # 0.8 L [place] # Seg Neutrophils % 73.6 H Seg Neuts % (Manual) Monocytes % (Manual) Seg Neutrophils # PT INR POC ABG pH POC ABG pCO2 POC ABG pO2 Sodium 127 L Chloride 90.9 L Carbon Dioxide BUN 52 H Creatinine 4.5 H Glucose 187 H POC Glucose 158 H Calcium 7.9 L Total Creatine Kinase Troponin T C-Reactive Protein NT-Pro-B Natriuret Pep Albumin Triglycerides Cholesterol LDL Cholesterol Direct HDL Cholesterol Urine Creatinine Vancomycin Trough Miscellaneous Test 09/30/17 09/30/17 09/30/17 07:47 11:55 21:44 WBC RBC Hgb Hct MCH RDW Lymph % (Auto) [place]da % (Auto) Eos % (Auto) Lymph # [place] # Seg Neutrophils % Seg Neuts % (Manual) Monocytes % (Manual) Seg Neutrophils # PT INR POC ABG pH POC ABG pCO2 POC ABG pO2 Sodium Chloride Carbon Dioxide BUN Creatinine Glucose POC Glucose 137 H 184 H 141 H Calcium Total Creatine Kinase Troponin T C-Reactive Protein NT-Pro-B Natriuret Pep Albumin Triglycerides Cholesterol LDL Cholesterol Direct HDL Cholesterol Urine Creatinine Vancomycin Trough Miscellaneous Test 10/01/17 10/01/17 10/01/17 06:03 06:03 16:37 WBC RBC Hgb 11.3 L Hct 33.6 L MCH RDW Lymph % (Auto) 11.2 L [place] % (Auto) 10.2 H Eos % (Auto) Lymph # 1.1 L [place] # 1.0 H Seg Neutrophils % 74.5 H Seg Neuts % (Manual) Monocytes % (Manual) Seg Neutrophils # PT INR POC ABG pH POC ABG pCO2 POC ABG pO2 Sodium 130 L Chloride 92.3 L Carbon Dioxide BUN 53 H Creatinine 4.5 H Glucose POC Glucose 125 H Calcium 8.0 L Total Creatine Kinase Troponin T C-Reactive Protein NT-Pro-B Natriuret Pep Albumin Triglycerides Cholesterol LDL Cholesterol Direct HDL Cholesterol Urine Creatinine Vancomycin Trough Miscellaneous Test 10/01/17 10/01/17 10/02/17 20:41 21:47 06:21 WBC RBC Hgb 11.5 L Hct 34.5 L MCH RDW 15.3 H Lymph % (Auto) [place] % (Auto) 12.4 H Eos % (Auto) Lymph # 0.9 L [place] # Seg Neutrophils % 70.6 H Seg Neuts % (Manual) Monocytes % (Manual) Seg Neutrophils # PT INR POC ABG pH POC ABG pCO2 POC ABG pO2 Sodium Chloride Carbon Dioxide BUN Creatinine Glucose POC Glucose 115 H Calcium Total Creatine Kinase Troponin T C-Reactive Protein 7.60 H NT-Pro-B Natriuret Pep Albumin Triglycerides Cholesterol LDL Cholesterol Direct HDL Cholesterol Urine Creatinine Vancomycin Trough Miscellaneous Test 10/02/17 10/02/17 10/02/17 06:21 07:47 21:56 WBC RBC Hgb Hct MCH RDW Lymph % (Auto) [place]da % (Auto) Eos % (Auto) Lymph # [place] # Seg Neutrophils % Seg Neuts % (Manual) Monocytes % (Manual) Seg Neutrophils # PT INR POC ABG pH POC ABG pCO2 POC ABG pO2 Sodium 133 L Chloride 92.7 L Carbon Dioxide BUN 51 H Creatinine 4.7 H Glucose 113 H POC Glucose 118 H 154 H Calcium 8.0 L Total Creatine Kinase Troponin T C-Reactive Protein NT-Pro-B Natriuret Pep Albumin Triglycerides Cholesterol LDL Cholesterol Direct HDL Cholesterol Urine Creatinine Vancomycin Trough Miscellaneous Test 10/03/17 10/03/17 10/03/17 06:13 06:13 16:50 WBC RBC Hgb 10.7 L Hct 31.9 L MCH RDW 15.6 H Lymph % (Auto) [place]da % (Auto) Eos % (Auto) Lymph # [place] # Seg Neutrophils % Seg Neuts % (Manual) Monocytes % (Manual) Seg Neutrophils # PT INR POC ABG pH POC ABG pCO2 POC ABG pO2 Sodium 134 L Chloride 95.3 L Carbon Dioxide BUN 32 H Creatinine 3.7 H Glucose POC Glucose 126 H Calcium 7.8 L Total Creatine Kinase Troponin T C-Reactive Protein NT-Pro-B Natriuret Pep Albumin Triglycerides Cholesterol LDL Cholesterol Direct HDL Cholesterol Urine Creatinine Vancomycin Trough Miscellaneous Test 10/04/17 10/04/17 10/04/17 05:49 05:49 12:01 WBC RBC Hgb 10.8 L Hct 32.3 L MCH RDW 15.6 H Lymph % (Auto) [place] % (Auto) Eos % (Auto) Lymph # [place] # Seg Neutrophils % Seg Neuts % (Manual) 72.0 H Monocytes % (Manual) 9.0 H Seg Neutrophils # PT INR POC ABG pH POC ABG pCO2 POC ABG pO2 Sodium 133 L Chloride 93.7 L Carbon Dioxide BUN 23 H Creatinine 3.2 H Glucose POC Glucose 140 H Calcium 7.8 L Total Creatine Kinase Troponin T C-Reactive Protein NT-Pro-B Natriuret Pep Albumin Triglycerides Cholesterol LDL Cholesterol Direct HDL Cholesterol Urine Creatinine Vancomycin Trough Miscellaneous Test 10/04/17 10/04/17 10/05/17 17:35 20:44 05:34 WBC RBC 5.17 H Hgb Hct MCH 27 L RDW 15.5 H Lymph % (Auto) [place]da % (Auto) 13.6 H Eos % (Auto) Lymph # [place] # 0.9 H Seg Neutrophils % Seg Neuts % (Manual) Monocytes % (Manual) Seg Neutrophils # PT INR POC ABG pH POC ABG pCO2 POC ABG pO2 Sodium Chloride Carbon Dioxide BUN Creatinine Glucose POC Glucose 143 H 135 H Calcium Total Creatine Kinase Troponin T C-Reactive Protein NT-Pro-B Natriuret Pep Albumin Triglycerides Cholesterol LDL Cholesterol Direct HDL Cholesterol Urine Creatinine Vancomycin Trough Miscellaneous Test 10/05/17 10/05/17 10/05/17 05:34 12:34 21:29 WBC RBC Hgb Hct MCH RDW Lymph % (Auto) [place]da % (Auto) Eos % (Auto) Lymph # [place] # Seg Neutrophils % Seg Neuts % (Manual) Monocytes % (Manual) Seg Neutrophils # PT INR POC ABG pH POC ABG pCO2 POC ABG pO2 Sodium 132 L Chloride 92.7 L Carbon Dioxide BUN 36 H Creatinine 3.7 H Glucose POC Glucose 161 H 191 H Calcium 7.8 L Total Creatine Kinase Troponin T C-Reactive Protein NT-Pro-B Natriuret Pep Albumin Triglycerides Cholesterol LDL Cholesterol Direct HDL Cholesterol Urine Creatinine Vancomycin Trough Miscellaneous Test 10/06/17 10/06/17 10/06/17 05:50 05:50 13:14 WBC RBC Hgb 10.6 L D Hct 32.4 L D MCH RDW 15.5 H Lymph % (Auto) [place]da % (Auto) 15.6 H Eos % (Auto) Lymph # [place] # 1.2 H Seg Neutrophils % Seg Neuts % (Manual) Monocytes % (Manual) Seg Neutrophils # PT INR POC ABG pH POC ABG pCO2 POC ABG pO2 Sodium 131 L Chloride 91.9 L Carbon Dioxide BUN 27 H Creatinine 3.0 H Glucose 140 H POC Glucose 162 H Calcium 7.9 L Total Creatine Kinase Troponin T C-Reactive Protein NT-Pro-B Natriuret Pep Albumin Triglycerides Cholesterol LDL Cholesterol Direct HDL Cholesterol Urine Creatinine Vancomycin Trough Miscellaneous Test 10/06/17 10/06/17 10/07/17 15:54 21:48 05:32 WBC RBC Hgb 11.3 L Hct 34.0 L MCH RDW 15.3 H Lymph % (Auto) [place]da % (Auto) 13.4 H Eos % (Auto) Lymph # [place] # 1.1 H Seg Neutrophils % Seg Neuts % (Manual) Monocytes % (Manual) Seg Neutrophils # PT INR POC ABG pH POC ABG pCO2 POC ABG pO2 Sodium Chloride Carbon Dioxide BUN Creatinine Glucose POC Glucose 194 H 190 H Calcium Total Creatine Kinase Troponin T C-Reactive Protein NT-Pro-B Natriuret Pep Albumin Triglycerides Cholesterol LDL Cholesterol Direct HDL Cholesterol Urine Creatinine Vancomycin Trough Miscellaneous Test 10/07/17 10/07/17 10/07/17 05:32 05:32 08:43 WBC RBC Hgb Hct MCH RDW Lymph % (Auto) [place]da % (Auto) Eos % (Auto) Lymph # [place] # Seg Neutrophils % Seg Neuts % (Manual) Monocytes % (Manual) Seg Neutrophils # PT INR POC ABG pH POC ABG pCO2 POC ABG pO2 Sodium 134 L Chloride 95.7 L Carbon Dioxide BUN 35 H Creatinine 3.3 H Glucose 101 H POC Glucose 131 H Calcium 8.1 L Total Creatine Kinase Troponin T C-Reactive Protein NT-Pro-B Natriuret Pep Albumin 2.8 L Triglycerides Cholesterol LDL Cholesterol Direct HDL Cholesterol Urine Creatinine Vancomycin Trough Miscellaneous Test 10/07/17 10/07/17 10/07/17 12:41 21:34 Unknown WBC RBC Hgb Hct MCH RDW Lymph % (Auto) [place]da % (Auto) Eos % (Auto) Lymph # [place] # Seg Neutrophils % Seg Neuts % (Manual) Monocytes % (Manual) Seg Neutrophils # PT INR POC ABG pH POC ABG pCO2 POC ABG pO2 Sodium Chloride Carbon Dioxide BUN Creatinine Glucose POC Glucose 165 H 167 H Calcium Total Creatine Kinase Troponin T C-Reactive Protein NT-Pro-B Natriuret Pep Albumin Triglycerides Cholesterol LDL Cholesterol Direct HDL Cholesterol Urine Creatinine 45.7 H Vancomycin Trough Miscellaneous Test 10/08/17 10/08/17 10/08/17 04:59 04:59 04:59 WBC 11.2 H RBC Hgb 10.7 L Hct 32.5 L MCH RDW 15.5 H Lymph % (Auto) 13.2 L [place] % (Auto) 12.7 H Eos % (Auto) Lymph # [place] # 1.4 H Seg Neutrophils % 72.1 H Seg Neuts % (Manual) Monocytes % (Manual) Seg Neutrophils # 8.1 H PT 15.7 H INR 1.19 H POC ABG pH POC ABG pCO2 POC ABG pO2 Sodium 134 L Chloride 96.3 L Carbon Dioxide BUN 39 H Creatinine 3.4 H Glucose 105 H POC Glucose Calcium 8.3 L Total Creatine Kinase Troponin T C-Reactive Protein NT-Pro-B Natriuret Pep Albumin Triglycerides Cholesterol LDL Cholesterol Direct HDL Cholesterol Urine Creatinine Vancomycin Trough Miscellaneous Test 10/08/17 10/08/17 10/08/17 16:31 22:17 Unknown WBC RBC Hgb Hct MCH RDW Lymph % (Auto) [place]da % (Auto) Eos % (Auto) Lymph # [place] # Seg Neutrophils % Seg Neuts % (Manual) Monocytes % (Manual) Seg Neutrophils # PT INR POC ABG pH POC ABG pCO2 POC ABG pO2 Sodium Chloride Carbon Dioxide BUN Creatinine Glucose POC Glucose 276 H 132 H Calcium Total Creatine Kinase Troponin T C-Reactive Protein NT-Pro-B Natriuret Pep Albumin Triglycerides Cholesterol LDL Cholesterol Direct HDL Cholesterol Urine Creatinine 45.5 H Vancomycin Trough Miscellaneous Test 10/09/17 10/09/17 10/09/17 05:49 05:49 08:47 WBC RBC Hgb 10.5 L Hct 31.8 L MCH RDW 15.8 H Lymph % (Auto) 8.5 L [place] % (Auto) 13.1 H Eos % (Auto) Lymph # 0.9 L [place] # 1.4 H Seg Neutrophils % 76.5 H Seg Neuts % (Manual) Monocytes % (Manual) Seg Neutrophils # 8.1 H PT INR POC ABG pH POC ABG pCO2 POC ABG pO2 Sodium 136 L Chloride Carbon Dioxide BUN 39 H Creatinine 3.1 H Glucose 139 H POC Glucose 121 H Calcium Total Creatine Kinase Troponin T C-Reactive Protein NT-Pro-B Natriuret Pep Albumin Triglycerides Cholesterol LDL Cholesterol Direct HDL Cholesterol Urine Creatinine Vancomycin Trough Miscellaneous Test 10/09/17 12:43 WBC RBC Hgb Hct MCH RDW Lymph % (Auto) [place]da % (Auto) Eos % (Auto) Lymph # [place] # Seg Neutrophils % Seg Neuts % (Manual) Monocytes % (Manual) Seg Neutrophils # PT INR POC ABG pH POC ABG pCO2 POC ABG pO2 Sodium Chloride Carbon Dioxide BUN Creatinine Glucose POC Glucose 216 H Calcium Total Creatine Kinase Troponin T C-Reactive Protein NT-Pro-B Natriuret Pep Albumin Triglycerides Cholesterol LDL Cholesterol Direct HDL Cholesterol Urine Creatinine Vancomycin Trough Miscellaneous Test
--- NOTE | 2017-10-09 17:54 | Progress Note ---
Assessment and Plan Patient alert, awake . Patient resting on Venturi mask ,FIO2 50%.O2 saturation 97% .Patient taking off the mask at times. Recommend to keep mask all the time.Patients chest xray reported cardiomegaly and lungs are clear. - Patient Problems (1) Bilateral pleural effusion Current Visit: Yes Status: Acute Plan to address problem: Ultrasound of chest reported no significant pleural effusion. (2) Bilateral pneumonia Current Visit: Yes Status: Acute Qualifiers: Pneumonia type: due to unspecified organism Lung location: unspecified part of lung Qualified Code(s): J18.9 - Pneumonia, unspecified organism Plan to address problem: Patient Afebrile . Chest xray reported lungs are clear. (3) Acute congestive heart failure Current Visit: Yes Status: Acute Qualifiers: Congestive heart failure type: unspecified Qualified Code(s): I50.9 - Heart failure, unspecified Plan to address problem: Management as per primary care and cardiology. (4) Diabetes mellitus type 2, insulin dependent Current Visit: No Status: Acute Plan to address problem: Management as per primary care. (5) Obesity (BMI 30-39.9) Current Visit: No Status: Acute Plan to address problem: Recommend to loose weight. Diet and exercise. (6) Sleep apnea Current Visit: No Status: Acute Plan to address problem: BIPAP 16/, rate 16, FIO2 50%. Subjective Date of service: 10/09/17 Principal diagnosis: stroke Interval history: Patient alert, awake.Patient resting on Venturi mask ,FIO2 50%.O2 saturation 97 % .Patient taking off the mask at times. Recommend to keep mask all the time.Patients chest xray reported cardiomegaly and lungs are clear. Objective Vital Signs - 12hr 10/09/17 10/09/17 10/09/17 07:10 10:00 12:42 Temperature 98.3 F Pulse Rate 104 H 105 H Pulse Rate [ 104 H From Monitor] Respiratory 18 Rate Blood Pressure 116/83 114/85 O2 Sat by Pulse 95 95 Oximetry 10/09/17 10/09/17 15:58 16:46 Temperature Pulse Rate 121 H Pulse Rate [ From Monitor] Respiratory Rate Blood Pressure 114/85 135/98 O2 Sat by Pulse 97 Oximetry Constitutional: no acute distress, alert Eyes: non-icteric ENT: oropharynx moist, other (No thyromegaly) Neck: supple, no lymphadenopathy, no JVD Effort: mildly labored Ascultation: Bilateral: diminished breath sounds, rales (bases) Percussion: Bilateral: not dull Cardiovascular: regular rate and rhythm, murmur noted, other (no rubs) Gastrointestinal: normoactive bowel sounds, soft, non-tender Integumentary: normal Extremities: no cyanosis, pulses normal, no ischemia or petechiae, edema Neurologic: normal mental status, non-focal exam, pupils equal and round, CN II- XII normal Psychiatric: mood appropriate, affect normal CBC and BMP: 10/09/17 05:49 10/09/17 05:49 ABG, PT/INR, D-dimer: ABG POC ABG pH 7.459 (7.35-7.45) H 09/23/17 15:04 POC ABG pCO2 34.8 (35-45) L 09/23/17 15:04 POC ABG pO2 54 (80-105) L 09/23/17 15:04 POC ABG HCO3 24.7 09/23/17 15:04 POC ABG Total CO2 26 09/23/17 15:04 POC ABG O2 Sat 89 09/23/17 15:04 PT/INR, D-dimer PT 15.7 Sec. (12.2-14.9) H 10/08/17 04:59 INR 1.19 (0.87-1.13) H 10/08/17 04:59 Abnormal lab findings: Abnormal Labs 09/22/17 09/22/17 09/22/17 21:30 21:31 21:31 WBC RBC Hgb Hct MCH RDW 15.3 H Lymph % (Auto) [place] % (Auto) 9.6 H Eos % (Auto) Lymph # [place] # 0.9 H Seg Neutrophils % 72.0 H Seg Neuts % (Manual) Monocytes % (Manual) Seg Neutrophils # PT INR POC ABG pH POC ABG pCO2 POC ABG pO2 Sodium Chloride Carbon Dioxide BUN Creatinine Glucose POC Glucose Calcium Total Creatine Kinase 371 H Troponin T 0.260 H* C-Reactive Protein NT-Pro-B Natriuret Pep 5093 H Albumin Triglycerides 226 H Cholesterol 235 H LDL Cholesterol Direct 164 H HDL Cholesterol 26 L Urine Creatinine Vancomycin Trough Miscellaneous Test 09/22/17 09/22/17 09/23/17 22:54 22:54 04:00 WBC RBC Hgb Hct MCH RDW Lymph % (Auto) [place] % (Auto) 11.9 H Eos % (Auto) Lymph # [place] # Seg Neutrophils % Seg Neuts % (Manual) Monocytes % (Manual) Seg Neutrophils # PT INR POC ABG pH POC ABG pCO2 POC ABG pO2 Sodium 129 L Chloride 91.6 L Carbon Dioxide BUN Creatinine 0.7 L Glucose 256 H POC Glucose Calcium 7.9 L Total Creatine Kinase 211 H Troponin T 0.344 H* D C-Reactive Protein NT-Pro-B Natriuret Pep Albumin Triglycerides Cholesterol LDL Cholesterol Direct HDL Cholesterol Urine Creatinine Vancomycin Trough Miscellaneous Test 09/23/17 09/23/17 09/23/17 04:00 04:10 09:09 WBC RBC Hgb Hct MCH RDW Lymph % (Auto) [place] % (Auto) Eos % (Auto) Lymph # [place] # Seg Neutrophils % Seg Neuts % (Manual) Monocytes % (Manual) Seg Neutrophils # PT INR POC ABG pH POC ABG pCO2 POC ABG pO2 Sodium 136 L D Chloride 95.3 L Carbon Dioxide BUN Creatinine Glucose 181 H POC Glucose 166 H Calcium 7.7 L Total Creatine Kinase Troponin T 0.287 H* C-Reactive Protein NT-Pro-B Natriuret Pep Albumin Triglycerides Cholesterol LDL Cholesterol Direct HDL Cholesterol Urine Creatinine Vancomycin Trough Miscellaneous Test 09/23/17 09/23/17 09/23/17 11:40 13:19 15:04 WBC RBC Hgb Hct MCH RDW Lymph % (Auto) [place] % (Auto) Eos % (Auto) Lymph # [place] # Seg Neutrophils % Seg Neuts % (Manual) Monocytes % (Manual) Seg Neutrophils # PT INR POC ABG pH 7.459 H POC ABG pCO2 34.8 L POC ABG pO2 54 L Sodium Chloride Carbon Dioxide BUN Creatinine Glucose POC Glucose 221 H 267 H Calcium Total Creatine Kinase Troponin T C-Reactive Protein NT-Pro-B Natriuret Pep Albumin Triglycerides Cholesterol LDL Cholesterol Direct HDL Cholesterol Urine Creatinine Vancomycin Trough Miscellaneous Test 09/23/17 09/23/17 09/24/17 15:57 22:07 04:40 WBC RBC Hgb Hct MCH RDW Lymph % (Auto) [place] % (Auto) 11.4 H Eos % (Auto) Lymph # [place] # Seg Neutrophils % Seg Neuts % (Manual) Monocytes % (Manual) Seg Neutrophils # PT INR POC ABG pH POC ABG pCO2 POC ABG pO2 Sodium Chloride Carbon Dioxide BUN Creatinine Glucose POC Glucose 281 H 166 H Calcium Total Creatine Kinase Troponin T C-Reactive Protein NT-Pro-B Natriuret Pep Albumin Triglycerides Cholesterol LDL Cholesterol Direct HDL Cholesterol Urine Creatinine Vancomycin Trough Miscellaneous Test 09/24/17 09/24/17 09/24/17 04:40 08:42 12:17 WBC RBC Hgb Hct MCH RDW Lymph % (Auto) [place] % (Auto) Eos % (Auto) Lymph # [place] # Seg Neutrophils % Seg Neuts % (Manual) Monocytes % (Manual) Seg Neutrophils # PT INR POC ABG pH POC ABG pCO2 POC ABG pO2 Sodium 133 L Chloride 95.6 L Carbon Dioxide BUN Creatinine 0.7 L Glucose 251 H POC Glucose 173 H 209 H Calcium 7.8 L Total Creatine Kinase Troponin T C-Reactive Protein NT-Pro-B Natriuret Pep Albumin Triglycerides Cholesterol LDL Cholesterol Direct HDL Cholesterol Urine Creatinine Vancomycin Trough Miscellaneous Test 09/24/17 09/24/17 09/25/17 16:13 21:21 12:44 WBC RBC Hgb Hct MCH RDW Lymph % (Auto) [place] % (Auto) Eos % (Auto) Lymph # [place] # Seg Neutrophils % Seg Neuts % (Manual) Monocytes % (Manual) Seg Neutrophils # PT INR POC ABG pH POC ABG pCO2 POC ABG pO2 Sodium Chloride Carbon Dioxide BUN Creatinine Glucose POC Glucose 248 H 152 H 185 H Calcium Total Creatine Kinase Troponin T C-Reactive Protein NT-Pro-B Natriuret Pep Albumin Triglycerides Cholesterol LDL Cholesterol Direct HDL Cholesterol Urine Creatinine Vancomycin Trough Miscellaneous Test 09/25/17 09/25/17 09/26/17 17:18 23:10 05:35 WBC 15.6 H RBC Hgb Hct MCH RDW Lymph % (Auto) [place] % (Auto) Eos % (Auto) Lymph # [place] # Seg Neutrophils % 78.5 H Seg Neuts % (Manual) Monocytes % (Manual) Seg Neutrophils # 12.2 H PT INR POC ABG pH POC ABG pCO2 POC ABG pO2 Sodium Chloride Carbon Dioxide BUN Creatinine Glucose POC Glucose 186 H 187 H Calcium Total Creatine Kinase Troponin T C-Reactive Protein NT-Pro-B Natriuret Pep Albumin Triglycerides Cholesterol LDL Cholesterol Direct HDL Cholesterol Urine Creatinine Vancomycin Trough Miscellaneous Test 09/26/17 09/26/17 09/26/17 05:35 09:02 12:20 WBC RBC Hgb Hct MCH RDW Lymph % (Auto) [place] % (Auto) Eos % (Auto) Lymph # [place] # Seg Neutrophils % Seg Neuts % (Manual) Monocytes % (Manual) Seg Neutrophils # PT INR POC ABG pH POC ABG pCO2 POC ABG pO2 Sodium 133 L Chloride 95.2 L Carbon Dioxide BUN Creatinine 0.7 L Glucose 161 H POC Glucose 131 H 199 H Calcium 8.3 L Total Creatine Kinase Troponin T C-Reactive Protein NT-Pro-B Natriuret Pep Albumin Triglycerides Cholesterol LDL Cholesterol Direct HDL Cholesterol Urine Creatinine Vancomycin Trough Miscellaneous Test 09/26/17 09/26/17 09/27/17 16:39 21:45 07:24 WBC RBC Hgb Hct MCH RDW Lymph % (Auto) [place] % (Auto) Eos % (Auto) Lymph # [place] # Seg Neutrophils % Seg Neuts % (Manual) Monocytes % (Manual) Seg Neutrophils # PT INR POC ABG pH POC ABG pCO2 POC ABG pO2 Sodium Chloride Carbon Dioxide BUN Creatinine Glucose POC Glucose 209 H 194 H 210 H Calcium Total Creatine Kinase Troponin T C-Reactive Protein NT-Pro-B Natriuret Pep Albumin Triglycerides Cholesterol LDL Cholesterol Direct HDL Cholesterol Urine Creatinine Vancomycin Trough Miscellaneous Test 09/27/17 09/27/17 09/27/17 09:20 09:20 11:50 WBC RBC Hgb 11.0 L Hct MCH RDW Lymph % (Auto) [place] % (Auto) Eos % (Auto) Lymph # [place] # Seg Neutrophils % 77.2 H Seg Neuts % (Manual) Monocytes % (Manual) Seg Neutrophils # PT INR POC ABG pH POC ABG pCO2 POC ABG pO2 Sodium 134 L Chloride 96.1 L Carbon Dioxide BUN 21 H Creatinine Glucose 139 H POC Glucose Calcium 8.0 L Total Creatine Kinase Troponin T C-Reactive Protein NT-Pro-B Natriuret Pep Albumin Triglycerides Cholesterol LDL Cholesterol Direct HDL Cholesterol Urine Creatinine Vancomycin Trough 46.8 H Miscellaneous Test 09/27/17 09/27/17 09/27/17 11:50 12:18 17:00 WBC RBC Hgb 10.7 L Hct 32.1 L D MCH RDW Lymph % (Auto) [place] % (Auto) Eos % (Auto) Lymph # [place] # Seg Neutrophils % 80.6 H Seg Neuts % (Manual) Monocytes % (Manual) Seg Neutrophils # PT INR POC ABG pH POC ABG pCO2 POC ABG pO2 Sodium Chloride Carbon Dioxide BUN Creatinine Glucose POC Glucose 274 H 169 H Calcium Total Creatine Kinase Troponin T C-Reactive Protein NT-Pro-B Natriuret Pep Albumin Triglycerides Cholesterol LDL Cholesterol Direct HDL Cholesterol Urine Creatinine Vancomycin Trough Miscellaneous Test 09/27/17 09/27/17 09/27/17 21:18 21:19 23:28 WBC RBC Hgb Hct MCH RDW Lymph % (Auto) [place] % (Auto) Eos % (Auto) Lymph # [place] # Seg Neutrophils % Seg Neuts % (Manual) Monocytes % (Manual) Seg Neutrophils # PT INR POC ABG pH POC ABG pCO2 POC ABG pO2 Sodium Chloride Carbon Dioxide BUN Creatinine Glucose POC Glucose 251 H Calcium Total Creatine Kinase Troponin T C-Reactive Protein 34.90 H NT-Pro-B Natriuret Pep Albumin Triglycerides Cholesterol LDL Cholesterol Direct HDL Cholesterol Urine Creatinine Vancomycin Trough Miscellaneous Test Flexitest 1 H 09/27/17 09/28/17 09/28/17 23:49 07:00 07:00 WBC RBC 3.44 L Hgb 9.9 L Hct 29.6 L MCH RDW Lymph % (Auto) [place] % (Auto) Eos % (Auto) Lymph # 1.0 L [place] # Seg Neutrophils % 76.2 H Seg Neuts % (Manual) Monocytes % (Manual) Seg Neutrophils # PT INR POC ABG pH POC ABG pCO2 POC ABG pO2 Sodium 128 L Chloride 92.1 L Carbon Dioxide 20 L BUN 40 H Creatinine 3.1 H D Glucose 199 H POC Glucose 233 H Calcium 7.5 L Total Creatine Kinase Troponin T C-Reactive Protein NT-Pro-B Natriuret Pep Albumin Triglycerides Cholesterol LDL Cholesterol Direct HDL Cholesterol Urine Creatinine Vancomycin Trough Miscellaneous Test 09/28/17 09/28/17 09/28/17 07:00 08:03 13:31 WBC RBC Hgb Hct MCH RDW Lymph % (Auto) [place] % (Auto) Eos % (Auto) Lymph # [place] # Seg Neutrophils % Seg Neuts % (Manual) Monocytes % (Manual) Seg Neutrophils # PT INR POC ABG pH POC ABG pCO2 POC ABG pO2 Sodium Chloride Carbon Dioxide BUN Creatinine Glucose POC Glucose 165 H 237 H Calcium Total Creatine Kinase Troponin T C-Reactive Protein NT-Pro-B Natriuret Pep Albumin Triglycerides Cholesterol LDL Cholesterol Direct HDL Cholesterol Urine Creatinine Vancomycin Trough 36.3 H Miscellaneous Test 09/28/17 09/28/17 09/29/17 16:20 22:12 05:20 WBC RBC Hgb 11.4 L Hct 34.5 L MCH RDW Lymph % (Auto) 10.5 L [place] % (Auto) 9.1 H Eos % (Auto) Lymph # 0.5 L [place] # Seg Neutrophils % 75.8 H Seg Neuts % (Manual) Monocytes % (Manual) Seg Neutrophils # PT INR POC ABG pH POC ABG pCO2 POC ABG pO2 Sodium Chloride Carbon Dioxide BUN Creatinine Glucose POC Glucose 323 H 164 H Calcium Total Creatine Kinase Troponin T C-Reactive Protein NT-Pro-B Natriuret Pep Albumin Triglycerides Cholesterol LDL Cholesterol Direct HDL Cholesterol Urine Creatinine Vancomycin Trough Miscellaneous Test 09/29/17 09/29/17 09/29/17 05:20 07:53 16:21 WBC RBC Hgb Hct MCH RDW Lymph % (Auto) [place] % (Auto) Eos % (Auto) Lymph # [place] # Seg Neutrophils % Seg Neuts % (Manual) Monocytes % (Manual) Seg Neutrophils # PT INR POC ABG pH POC ABG pCO2 POC ABG pO2 Sodium 128 L Chloride 91.6 L Carbon Dioxide 21 L BUN 51 H Creatinine 3.8 H Glucose 161 H POC Glucose 128 H 141 H Calcium Total Creatine Kinase Troponin T C-Reactive Protein NT-Pro-B Natriuret Pep Albumin Triglycerides Cholesterol LDL Cholesterol Direct HDL Cholesterol Urine Creatinine Vancomycin Trough Miscellaneous Test 09/29/17 09/30/17 09/30/17 22:17 05:21 05:21 WBC RBC Hgb 10.3 L Hct 32.1 L MCH 27 L RDW Lymph % (Auto) 11.6 L [place] % (Auto) 9.3 H Eos % (Auto) 4.9 H Lymph # 0.8 L [place] # Seg Neutrophils % 73.6 H Seg Neuts % (Manual) Monocytes % (Manual) Seg Neutrophils # PT INR POC ABG pH POC ABG pCO2 POC ABG pO2 Sodium 127 L Chloride 90.9 L Carbon Dioxide BUN 52 H Creatinine 4.5 H Glucose 187 H POC Glucose 158 H Calcium 7.9 L Total Creatine Kinase Troponin T C-Reactive Protein NT-Pro-B Natriuret Pep Albumin Triglycerides Cholesterol LDL Cholesterol Direct HDL Cholesterol Urine Creatinine Vancomycin Trough Miscellaneous Test 09/30/17 09/30/17 09/30/17 07:47 11:55 21:44 WBC RBC Hgb Hct MCH RDW Lymph % (Auto) [place] % (Auto) Eos % (Auto) Lymph # [place] # Seg Neutrophils % Seg Neuts % (Manual) Monocytes % (Manual) Seg Neutrophils # PT INR POC ABG pH POC ABG pCO2 POC ABG pO2 Sodium Chloride Carbon Dioxide BUN Creatinine Glucose POC Glucose 137 H 184 H 141 H Calcium Total Creatine Kinase Troponin T C-Reactive Protein NT-Pro-B Natriuret Pep Albumin Triglycerides Cholesterol LDL Cholesterol Direct HDL Cholesterol Urine Creatinine Vancomycin Trough Miscellaneous Test 10/01/17 10/01/17 10/01/17 06:03 06:03 16:37 WBC RBC Hgb 11.3 L Hct 33.6 L MCH RDW Lymph % (Auto) 11.2 L [place] % (Auto) 10.2 H Eos % (Auto) Lymph # 1.1 L [place] # 1.0 H Seg Neutrophils % 74.5 H Seg Neuts % (Manual) Monocytes % (Manual) Seg Neutrophils # PT INR POC ABG pH POC ABG pCO2 POC ABG pO2 Sodium 130 L Chloride 92.3 L Carbon Dioxide BUN 53 H Creatinine 4.5 H Glucose POC Glucose 125 H Calcium 8.0 L Total Creatine Kinase Troponin T C-Reactive Protein NT-Pro-B Natriuret Pep Albumin Triglycerides Cholesterol LDL Cholesterol Direct HDL Cholesterol Urine Creatinine Vancomycin Trough Miscellaneous Test 10/01/17 10/01/17 10/02/17 20:41 21:47 06:21 WBC RBC Hgb 11.5 L Hct 34.5 L MCH RDW 15.3 H Lymph % (Auto) [place] % (Auto) 12.4 H Eos % (Auto) Lymph # 0.9 L [place] # Seg Neutrophils % 70.6 H Seg Neuts % (Manual) Monocytes % (Manual) Seg Neutrophils # PT INR POC ABG pH POC ABG pCO2 POC ABG pO2 Sodium Chloride Carbon Dioxide BUN Creatinine Glucose POC Glucose 115 H Calcium Total Creatine Kinase Troponin T C-Reactive Protein 7.60 H NT-Pro-B Natriuret Pep Albumin Triglycerides Cholesterol LDL Cholesterol Direct HDL Cholesterol Urine Creatinine Vancomycin Trough Miscellaneous Test 10/02/17 10/02/17 10/02/17 06:21 07:47 21:56 WBC RBC Hgb Hct MCH RDW Lymph % (Auto) [place] % (Auto) Eos % (Auto) Lymph # [place] # Seg Neutrophils % Seg Neuts % (Manual) Monocytes % (Manual) Seg Neutrophils # PT INR POC ABG pH POC ABG pCO2 POC ABG pO2 Sodium 133 L Chloride 92.7 L Carbon Dioxide BUN 51 H Creatinine 4.7 H Glucose 113 H POC Glucose 118 H 154 H Calcium 8.0 L Total Creatine Kinase Troponin T C-Reactive Protein NT-Pro-B Natriuret Pep Albumin Triglycerides Cholesterol LDL Cholesterol Direct HDL Cholesterol Urine Creatinine Vancomycin Trough Miscellaneous Test 10/03/17 10/03/17 10/03/17 06:13 06:13 16:50 WBC RBC Hgb 10.7 L Hct 31.9 L MCH RDW 15.6 H Lymph % (Auto) [place] % (Auto) Eos % (Auto) Lymph # [place] # Seg Neutrophils % Seg Neuts % (Manual) Monocytes % (Manual) Seg Neutrophils # PT INR POC ABG pH POC ABG pCO2 POC ABG pO2 Sodium 134 L Chloride 95.3 L Carbon Dioxide BUN 32 H Creatinine 3.7 H Glucose POC Glucose 126 H Calcium 7.8 L Total Creatine Kinase Troponin T C-Reactive Protein NT-Pro-B Natriuret Pep Albumin Triglycerides Cholesterol LDL Cholesterol Direct HDL Cholesterol Urine Creatinine Vancomycin Trough Miscellaneous Test 10/04/17 10/04/17 10/04/17 05:49 05:49 12:01 WBC RBC Hgb 10.8 L Hct 32.3 L MCH RDW 15.6 H Lymph % (Auto) [place] % (Auto) Eos % (Auto) Lymph # [place] # Seg Neutrophils % Seg Neuts % (Manual) 72.0 H Monocytes % (Manual) 9.0 H Seg Neutrophils # PT INR POC ABG pH POC ABG pCO2 POC ABG pO2 Sodium 133 L Chloride 93.7 L Carbon Dioxide BUN 23 H Creatinine 3.2 H Glucose POC Glucose 140 H Calcium 7.8 L Total Creatine Kinase Troponin T C-Reactive Protein NT-Pro-B Natriuret Pep Albumin Triglycerides Cholesterol LDL Cholesterol Direct HDL Cholesterol Urine Creatinine Vancomycin Trough Miscellaneous Test 10/04/17 10/04/17 10/05/17 17:35 20:44 05:34 WBC RBC 5.17 H Hgb Hct MCH 27 L RDW 15.5 H Lymph % (Auto) [place] % (Auto) 13.6 H Eos % (Auto) Lymph # [place] # 0.9 H Seg Neutrophils % Seg Neuts % (Manual) Monocytes % (Manual) Seg Neutrophils # PT INR POC ABG pH POC ABG pCO2 POC ABG pO2 Sodium Chloride Carbon Dioxide BUN Creatinine Glucose POC Glucose 143 H 135 H Calcium Total Creatine Kinase Troponin T C-Reactive Protein NT-Pro-B Natriuret Pep Albumin Triglycerides Cholesterol LDL Cholesterol Direct HDL Cholesterol Urine Creatinine Vancomycin Trough Miscellaneous Test 10/05/17 10/05/17 10/05/17 05:34 12:34 21:29 WBC RBC Hgb Hct MCH RDW Lymph % (Auto) [place] % (Auto) Eos % (Auto) Lymph # [place] # Seg Neutrophils % Seg Neuts % (Manual) Monocytes % (Manual) Seg Neutrophils # PT INR POC ABG pH POC ABG pCO2 POC ABG pO2 Sodium 132 L Chloride 92.7 L Carbon Dioxide BUN 36 H Creatinine 3.7 H Glucose POC Glucose 161 H 191 H Calcium 7.8 L Total Creatine Kinase Troponin T C-Reactive Protein NT-Pro-B Natriuret Pep Albumin Triglycerides Cholesterol LDL Cholesterol Direct HDL Cholesterol Urine Creatinine Vancomycin Trough Miscellaneous Test 10/06/17 10/06/17 10/06/17 05:50 05:50 13:14 WBC RBC Hgb 10.6 L D Hct 32.4 L D MCH RDW 15.5 H Lymph % (Auto) [place] % (Auto) 15.6 H Eos % (Auto) Lymph # [place] # 1.2 H Seg Neutrophils % Seg Neuts % (Manual) Monocytes % (Manual) Seg Neutrophils # PT INR POC ABG pH POC ABG pCO2 POC ABG pO2 Sodium 131 L Chloride 91.9 L Carbon Dioxide BUN 27 H Creatinine 3.0 H Glucose 140 H POC Glucose 162 H Calcium 7.9 L Total Creatine Kinase Troponin T C-Reactive Protein NT-Pro-B Natriuret Pep Albumin Triglycerides Cholesterol LDL Cholesterol Direct HDL Cholesterol Urine Creatinine Vancomycin Trough Miscellaneous Test 10/06/17 10/06/17 10/07/17 15:54 21:48 05:32 WBC RBC Hgb 11.3 L Hct 34.0 L MCH RDW 15.3 H Lymph % (Auto) [place] % (Auto) 13.4 H Eos % (Auto) Lymph # [place] # 1.1 H Seg Neutrophils % Seg Neuts % (Manual) Monocytes % (Manual) Seg Neutrophils # PT INR POC ABG pH POC ABG pCO2 POC ABG pO2 Sodium Chloride Carbon Dioxide BUN Creatinine Glucose POC Glucose 194 H 190 H Calcium Total Creatine Kinase Troponin T C-Reactive Protein NT-Pro-B Natriuret Pep Albumin Triglycerides Cholesterol LDL Cholesterol Direct HDL Cholesterol Urine Creatinine Vancomycin Trough Miscellaneous Test 10/07/17 10/07/17 10/07/17 05:32 05:32 08:43 WBC RBC Hgb Hct MCH RDW Lymph % (Auto) [place] % (Auto) Eos % (Auto) Lymph # [place] # Seg Neutrophils % Seg Neuts % (Manual) Monocytes % (Manual) Seg Neutrophils # PT INR POC ABG pH POC ABG pCO2 POC ABG pO2 Sodium 134 L Chloride 95.7 L Carbon Dioxide BUN 35 H Creatinine 3.3 H Glucose 101 H POC Glucose 131 H Calcium 8.1 L Total Creatine Kinase Troponin T C-Reactive Protein NT-Pro-B Natriuret Pep Albumin 2.8 L Triglycerides Cholesterol LDL Cholesterol Direct HDL Cholesterol Urine Creatinine Vancomycin Trough Miscellaneous Test 10/07/17 10/07/17 10/07/17 12:41 21:34 Unknown WBC RBC Hgb Hct MCH RDW Lymph % (Auto) [place] % (Auto) Eos % (Auto) Lymph # [place] # Seg Neutrophils % Seg Neuts % (Manual) Monocytes % (Manual) Seg Neutrophils # PT INR POC ABG pH POC ABG pCO2 POC ABG pO2 Sodium Chloride Carbon Dioxide BUN Creatinine Glucose POC Glucose 165 H 167 H Calcium Total Creatine Kinase Troponin T C-Reactive Protein NT-Pro-B Natriuret Pep Albumin Triglycerides Cholesterol LDL Cholesterol Direct HDL Cholesterol Urine Creatinine 45.7 H Vancomycin Trough Miscellaneous Test 10/08/17 10/08/17 10/08/17 04:59 04:59 04:59 WBC 11.2 H RBC Hgb 10.7 L Hct 32.5 L MCH RDW 15.5 H Lymph % (Auto) 13.2 L [place] % (Auto) 12.7 H Eos % (Auto) Lymph # [place] # 1.4 H Seg Neutrophils % 72.1 H Seg Neuts % (Manual) Monocytes % (Manual) Seg Neutrophils # 8.1 H PT 15.7 H INR 1.19 H POC ABG pH POC ABG pCO2 POC ABG pO2 Sodium 134 L Chloride 96.3 L Carbon Dioxide BUN 39 H Creatinine 3.4 H Glucose 105 H POC Glucose Calcium 8.3 L Total Creatine Kinase Troponin T C-Reactive Protein NT-Pro-B Natriuret Pep Albumin Triglycerides Cholesterol LDL Cholesterol Direct HDL Cholesterol Urine Creatinine Vancomycin Trough Miscellaneous Test 10/08/17 10/08/17 10/08/17 16:31 22:17 Unknown WBC RBC Hgb Hct MCH RDW Lymph % (Auto) [place] % (Auto) Eos % (Auto) Lymph # [place] # Seg Neutrophils % Seg Neuts % (Manual) Monocytes % (Manual) Seg Neutrophils # PT INR POC ABG pH POC ABG pCO2 POC ABG pO2 Sodium Chloride Carbon Dioxide BUN Creatinine Glucose POC Glucose 276 H 132 H Calcium Total Creatine Kinase Troponin T C-Reactive Protein NT-Pro-B Natriuret Pep Albumin Triglycerides Cholesterol LDL Cholesterol Direct HDL Cholesterol Urine Creatinine 45.5 H Vancomycin Trough Miscellaneous Test 10/09/17 10/09/17 10/09/17 05:49 05:49 08:47 WBC RBC Hgb 10.5 L Hct 31.8 L MCH RDW 15.8 H Lymph % (Auto) 8.5 L [place] % (Auto) 13.1 H Eos % (Auto) Lymph # 0.9 L [place] # 1.4 H Seg Neutrophils % 76.5 H Seg Neuts % (Manual) Monocytes % (Manual) Seg Neutrophils # 8.1 H PT INR POC ABG pH POC ABG pCO2 POC ABG pO2 Sodium 136 L Chloride Carbon Dioxide BUN 39 H Creatinine 3.1 H Glucose 139 H POC Glucose 121 H Calcium Total Creatine Kinase Troponin T C-Reactive Protein NT-Pro-B Natriuret Pep Albumin Triglycerides Cholesterol LDL Cholesterol Direct HDL Cholesterol Urine Creatinine Vancomycin Trough Miscellaneous Test 10/09/17 12:43 WBC RBC Hgb Hct MCH RDW Lymph % (Auto) [place] % (Auto) Eos % (Auto) Lymph # [place] # Seg Neutrophils % Seg Neuts % (Manual) Monocytes % (Manual) Seg Neutrophils # PT INR POC ABG pH POC ABG pCO2 POC ABG pO2 Sodium Chloride Carbon Dioxide BUN Creatinine Glucose POC Glucose 216 H Calcium Total Creatine Kinase Troponin T C-Reactive Protein NT-Pro-B Natriuret Pep Albumin Triglycerides Cholesterol LDL Cholesterol Direct HDL Cholesterol Urine Creatinine Vancomycin Trough Miscellaneous Test Chest x-ray: report reviewed (Cardiomegaly. Lungs are clear has been reported.) , image reviewed
[2017-10-09] MEDS: PRAVACHOL PO SCH (22:44)
[2017-10-09] MEDS: AMBIEN PO PRN (22:44)
[2017-10-09] MEDS: LEVEMIR SUB-Q SCH (22:45)
[2017-10-10] MEDS: LOPRESSOR PO SCH ×4 (06:28→22:08)
[2017-10-10] MEDS: APRESOLINE PO SCH ×3 (06:28→22:12)
[2017-10-10 09:07] LABS: Basophils # (Auto) 0.1 K/mm3 (0.0-0.1); Basophils % (Auto) 0.6 % (0.0-1.8); Eosinophils # (Auto) 0.1 K/mm3 (0.0-0.4); Eosinophils % (Auto) 0.8 % (0.0-4.3); Hematocrit 33.3 % (35.5-45.6); Hemoglobin 10.7 gm/dl (11.8-15.2); Lymphocytes # (Auto) 1.3 K/mm3 (1.2-5.4); Lymphocytes % (Auto) 10.3 % (13.4-35.0); Mean Corpuscular HGB Conc 32 % (32-34); Mean Corpuscular Hemoglobin 27 pg (28-32); Mean Corpuscular Volume 85 fl (84-94); Monocytes # (Auto) 1.4 K/mm3 (0.0-0.8); Monocytes % (Auto) 10.5 % (0.0-7.3); Platelet Count 379 K/mm3 (140-440); Red Blood Count 3.93 M/mm3 (3.65-5.03); Red Cell Distribution Width 15.4 % (13.2-15.2)
[2017-10-10 09:41] LABS: Calcium 8.5 mg/dL (8.4-10.2)
--- NOTE | 2017-10-10 10:48 | Discharge Summary ---
Providers - Providers Date of Admission: 09/22/17 22:07 Attending physician: KAZ KUO 09/22/17 22:07 Consult to Physician [CONS] Routine Consulting Provider: NADIA SO Reason For Exam: sob Place consult to:: Dr. So Notified:: Merritt TRACY Phone number called:: Was contact made?: Yes If yes, spoke with:: voicemail with consult info left via automated message service Time called:: 12:09 09/22/17 22:34 Consult to Physician [CONS] Routine Consulting Provider: TANYA JAMES Reason For Exam: ab CE, chf Notified:: skin care therapist pl call 09/26/17 09:15 Consult to Physician [CONS] Routine Consulting Provider: ROXANNE GATES Reason For Exam: bilateral pneumonia, fever Place consult to:: ID Notified:: y Was contact made?: Yes Time called:: 10:01 09/29/17 10:28 Consult to Physician [CONS] Routine Consulting Provider: PHILIP REYNOLDS Reason For Exam: ARF Place consult to:: Office Notified:: yes Phone number called:: [phone] Was contact made?: Yes If yes, spoke with:: Dr Reynolds Time called:: 15:26 Comment:: OK 10/02/17 14:52 Consult to Physician [CONS] Routine Consulting Provider: MARCIN VERDUGO Reason For Exam: Vascular catheter placement Place consult to:: vascular Notified:: y Comment:: Dr Verdugo on floor 10/05/17 12:11 Consult to Physician [CONS] Urgent Consulting Provider: MARCIN RICO Reason For Exam: Right visual field defect r/o CVA Place consult to:: neuro Notified:: yes Comment:: added to list 10/08/17 12:54 Consult to Cardiac Rehabilitation [CONS] Routine Reason For Exam: Cardiac Rehab Evaluation Primary care physician: KAZ WALTER Hospitalization Condition: Serious Exam - Constitutional Vitals: Temp Pulse Resp BP Pulse Ox 98.1 F 112 H 18 127/90 89 10/10/17 04:58 10/10/17 04:58 10/10/17 04:58 10/10/17 04:58 10/10/17 04:21 Plan Follow up with: PRIMARY CAREMD [Referring] - 3-5 Days Forms: AMA Form
[2017-10-10] MEDS: LOVENOX SUB-Q SCH (11:31)
[2017-10-10] MEDS: BABY ASPIRIN PO SCH (11:31)
[2017-10-10] MEDS: PROTONIX PO SCH (11:31)
[2017-10-10] MEDS: NOVOLOG SUB-Q SCH ×4 (11:32→22:11)
--- NOTE | 2017-10-10 11:41 | Progress Note ---
Assessment and Plan Assessment and plan: Acute hypoxic respiratory failure due to bilateral pneumonnia Acute Renal failure -Patient was receiving hemodialysis . Creatinine 2.9 today -Assess need for HD on daily basis as per Nephrology -Avoid Nephrotoxic agents -Renally dose medications -Obtain daily weights -Monitor intake and output -Monitor renal function closely -Renal ultrasound showed no hydronephrosis -Nephrology following -If renal function stable, may dc home soon Sepsis -Etiology secondary to pneumonia. -follow up Legionella urine antigen, Streptococcus pneumoniae urine antigen -Blood cultures thus far negative. -continue abx per ID Patient refused MAYKEL Bilateral pneumonia - On IV antibiotics , Levaquin and Zyvox - Pulmonary consult appreciated Cardiomyopathy - EF of 10-15%, systolic dysfunction - continue with CHF medications -Patient previously on milrinone drip per cardiology - Cardiology following NSVT -Patient had runs of V. tach -Estate Manager recommends life vest prior to dc Acute on chronic systolic heart failure. -shortness of breath today. Lasix iv Hyponatremia -Fluid restriction of 750ml per day -Follow BMP DM with hyperglycemia - SSI and basal insulin Acute ischemic stroke left occipital lobe. On Aspirin Neurology following Right homonymous visual field defect -Neuro following. -Ophthalmology outpatient follow-up DVT prophylaxis - On lovenox Disposition. -Continue inpatient management. [phone] , [facility] number to arrange for follow-up at the time of discharge. History Interval history: Right visual field defect No chest pain, Shortness of breath Hospitalist Physical - Physical exam Narrative exam: GEN APPEARANCE : Not in acute distress,obese HEENT: Normocephalic, Atraumatic NECK : supple, no JVD LUNGS: bilateral rales, no wheeze HEART: S1 and S2 regular, no murmurs, rubs or gallop, ABD: Soft, non tender, non distended, normal bowel sounds EXT:No edema, no clubbing, no cyanosis NEURO: Awake, alert,oriented x 3, right visual field defect - Constitutional Vitals: Temp Pulse Resp BP Pulse Ox 98.1 F 112 H 18 127/90 89 10/10/17 04:58 10/10/17 04:58 10/10/17 04:58 10/10/17 04:58 10/10/17 04:21 General appearance: Present: no acute distress Results - Labs CBC & Chem 7: 10/10/17 08:35 10/10/17 08:35 Labs: Laboratory Last Values WBC 12.9 K/mm3 (4.5-11.0) H 10/10/17 08:35 RBC 3.93 M/mm3 (3.65-5.03) 10/10/17 08:35 Hgb 10.7 gm/dl (11.8-15.2) L 10/10/17 08:35 Hct 33.3 % (35.5-45.6) L 10/10/17 08:35 MCV 85 fl (84-94) 10/10/17 08:35 MCH 27 pg (28-32) L 10/10/17 08:35 MCHC 32 % (32-34) 10/10/17 08:35 RDW 15.4 % (13.2-15.2) H 10/10/17 08:35 Plt Count 379 K/mm3 (140-440) 10/10/17 08:35 Lymph % (Auto) 10.3 % (13.4-35.0) L 10/10/17 08:35 [place] % (Auto) 10.5 % (0.0-7.3) H 10/10/17 08:35 Eos % (Auto) 0.8 % (0.0-4.3) 10/10/17 08:35 Baso % (Auto) 0.6 % (0.0-1.8) 10/10/17 08:35 Lymph # 1.3 K/mm3 (1.2-5.4) 10/10/17 08:35 [place] # 1.4 K/mm3 (0.0-0.8) H 10/10/17 08:35 Eos # 0.1 K/mm3 (0.0-0.4) 10/10/17 08:35 Baso # 0.1 K/mm3 (0.0-0.1) 10/10/17 08:35 Add Manual Diff Complete 10/04/17 05:49 Total Counted 100 10/04/17 05:49 Seg Neutrophils % 77.8 % (40.0-70.0) H 10/10/17 08:35 Seg Neuts % (Manual) 72.0 % (40.0-70.0) H 10/04/17 05:49 Band Neutrophils % 0 % 10/04/17 05:49 Lymphocytes % (Manual) 17.0 % (13.4-35.0) 10/04/17 05:49 Reactive Lymphs % (Man) 0 % 10/04/17 05:49 Monocytes % (Manual) 9.0 % (0.0-7.3) H 10/04/17 05:49 Eosinophils % (Manual) 2.0 % (0.0-4.3) 10/04/17 05:49 Basophils % (Manual) 0 % (0.0-1.8) 10/04/17 05:49 Metamyelocytes % 0 % 10/04/17 05:49 Myelocytes % 0 % 10/04/17 05:49 Promyelocytes % 0 % 10/04/17 05:49 Blast Cells % 0 % 10/04/17 05:49 Nucleated RBC % Not Reportable 10/04/17 05:49 Seg Neutrophils # 10.1 K/mm3 (1.8-7.7) H 10/10/17 08:35 Seg Neutrophils # Man 5.3 K/mm3 (1.8-7.7) 10/04/17 05:49 Band Neutrophils # 0.0 K/mm3 10/04/17 05:49 Lymphocytes # (Manual) 1.3 K/mm3 (1.2-5.4) 10/04/17 05:49 Abs React Lymphs (Man) 0.0 K/mm3 10/04/17 05:49 Monocytes # (Manual) 0.7 K/mm3 (0.0-0.8) 10/04/17 05:49 Eosinophils # (Manual) 0.1 K/mm3 (0.0-0.4) 10/04/17 05:49 Basophils # (Manual) 0.0 K/mm3 (0.0-0.1) 10/04/17 05:49 Metamyelocytes # 0.0 K/mm3 10/04/17 05:49 Myelocytes # 0.0 K/mm3 10/04/17 05:49 Promyelocytes # 0.0 K/mm3 10/04/17 05:49 Blast Cells # 0.0 K/mm3 10/04/17 05:49 WBC Morphology Not Reportable 10/04/17 05:49 Hypersegmented Neuts Not Reportable 10/04/17 05:49 Hyposegmented Neuts Not Reportable 10/04/17 05:49 Hypogranular Neuts Not Reportable 10/04/17 05:49 Smudge Cells Not Reportable 10/04/17 05:49 Toxic Granulation Not Reportable 10/04/17 05:49 Toxic Vacuolation Not Reportable 10/04/17 05:49 Dohle Bodies Not Reportable 10/04/17 05:49 Pelger-Huet Anomaly Not Reportable 10/04/17 05:49 Diaz Rods Not Reportable 10/04/17 05:49 Platelet Estimate Appears normal 10/04/17 05:49 Clumped Platelets Not Reportable 10/04/17 05:49 Plt Clumps, EDTA Not Reportable 10/04/17 05:49 Large Platelets Not Reportable 10/04/17 05:49 Giant Platelets Not Reportable 10/04/17 05:49 Platelet Satelliting Not Reportable 10/04/17 05:49 Plt Morphology Comment Not Reportable 10/04/17 05:49 RBC Morphology Not Reportable 10/04/17 05:49 Dimorphic RBCs Not Reportable 10/04/17 05:49 Polychromasia Few 10/04/17 05:49 Hypochromasia Not Reportable 10/04/17 05:49 Poikilocytosis Not Reportable 10/04/17 05:49 Anisocytosis 1+ 10/04/17 05:49 Microcytosis Not Reportable 10/04/17 05:49 Macrocytosis Not Reportable 10/04/17 05:49 Spherocytes Not Reportable 10/04/17 05:49 Pappenheimer Bodies Not Reportable 10/04/17 05:49 Sickle Cells Not Reportable 10/04/17 05:49 Target Cells Not Reportable 10/04/17 05:49 Tear Drop Cells Not Reportable 10/04/17 05:49 Ovalocytes Not Reportable 10/04/17 05:49 Helmet Cells Not Reportable 10/04/17 05:49 [place] Bodies Not Reportable 10/04/17 05:49 [place] Rings Not Reportable 10/04/17 05:49 [place] Cells Not Reportable 10/04/17 05:49 Bite Cells Not Reportable 10/04/17 05:49 Crenated Cell Not Reportable 10/04/17 05:49 Elliptocytes Not Reportable 10/04/17 05:49 Acanthocytes (Spur) Not Reportable 10/04/17 05:49 Rouleaux Not Reportable 10/04/17 05:49 Hemoglobin C Crystals Not Reportable 10/04/17 05:49 Schistocytes Not Reportable 10/04/17 05:49 Malaria parasites Not Reportable 10/04/17 05:49 Dash Bodies Not Reportable 10/04/17 05:49 Hem Pathologist Commnt No 10/04/17 05:49 PT 15.7 Sec. (12.2-14.9) H 10/08/17 04:59 INR 1.19 (0.87-1.13) H 10/08/17 04:59 POC ABG pH 7.459 (7.35-7.45) H 09/23/17 15:04 POC ABG pCO2 34.8 (35-45) L 09/23/17 15:04 POC ABG pO2 54 (80-105) L 09/23/17 15:04 POC ABG HCO3 24.7 09/23/17 15:04 POC ABG Total CO2 26 09/23/17 15:04 POC ABG O2 Sat 89 09/23/17 15:04 POC ABG Base Excess 1 09/23/17 15:04 FiO2 21 % 09/23/17 15:04 Sodium 137 mmol/L (137-145) 10/10/17 08:35 Potassium 4.8 mmol/L (3.6-5.0) 10/10/17 08:35 Chloride 94.9 mmol/L (98-107) L 10/10/17 08:35 Carbon Dioxide 25 mmol/L (22-30) 10/10/17 08:35 Anion Gap 22 mmol/L 10/10/17 08:35 BUN 40 mg/dL (9-20) H 10/10/17 08:35 Creatinine 2.9 mg/dL (0.8-1.5) H 10/10/17 08:35 Estimated GFR 29 ml/min 10/10/17 08:35 BUN/Creatinine Ratio 14 % 10/10/17 08:35 Glucose 119 mg/dL (75-100) H 10/10/17 08:35 POC Glucose 195 (70-105) H 10/09/17 21:25 Osmolality 299 Mosm/kg 09/30/17 05:21 Calcium 8.5 mg/dL (8.4-10.2) 10/10/17 08:35 Phosphorus 3.90 mg/dL (2.5-4.5) 10/10/17 08:35 Magnesium 1.70 mg/dL (1.7-2.3) 09/26/17 05:35 Total Bilirubin 0.40 mg/dL (0.1-1.2) 10/07/17 05:32 Direct Bilirubin < 0.2 mg/dL (0-0.2) 10/07/17 05:32 AST 21 units/L (5-40) 10/07/17 05:32 ALT 32 units/L (7-56) 10/07/17 05:32 Alkaline Phosphatase 119 units/L (35-129) 10/07/17 05:32 Total Creatine Kinase 170 units/L (55-170) 09/23/17 04:10 CK-MB (CK-2) 1.4 ng/mL (0.0-4.0) 09/23/17 04:10 CK-MB (CK-2) Rel Index 0.8 (0-4) 09/23/17 04:10 Troponin T 0.287 ng/mL (0.00-0.029) H* 09/23/17 04:10 C-Reactive Protein 7.60 mg/dL (0.00-1.30) H 10/01/17 20:41 NT-Pro-B Natriuret Pep 5093 pg/mL (0-450) H 09/22/17 21:31 Total Protein 7.2 g/dL (6.3-8.2) 10/07/17 05:32 Albumin 2.8 g/dL (3.9-5) L 10/07/17 05:32 Albumin/Globulin Ratio 0.6 % 10/07/17 05:32 Triglycerides 226 mg/dL (2-149) H 09/22/17 21:31 Cholesterol 235 mg/dL (50-199) H 09/22/17 21:31 LDL Cholesterol Direct 164 mg/dL (50-130) H 09/22/17 21:31 HDL Cholesterol 26 mg/dL (40-59) L 09/22/17 21:31 Cholesterol/HDL Ratio 9.03 % 09/22/17 21:31 Urine Eosinophils None seen (None Seen) 09/29/17 Unknown Urine Total Volume 2100 10/08/17 Unknown Urine Creatinine 45.5 mg/dL (0.1-20.0) H 10/08/17 Unknown Ur Creatinine 24 Hour 1.0 (0.8-2.8) 10/07/17 Unknown Height (in) 69.0 inches 10/08/17 Unknown Weight (lb) 220.0 lbs 10/08/17 Unknown Creatinine Clearance 15 10/08/17 Unknown Vancomycin Trough 36.3 ug/mL (5.0-20.0) H 09/28/17 07:00 Hepatitis A IgM Ab Non-reactive (NonReactive) 10/02/17 17:35 Hep Bs Antigen Non-reactive (Negative) 10/02/17 17:35 Hep B Core IgM Ab Non-reactive (NonReactive) 10/02/17 17:35 Hepatitis C Antibody Non-reactive (NonReactive) 10/02/17 17:35 HIV-1 RNA PCR copies/ml TNR 09/27/17 21:18 HIV-1 RNA (PCR) log TNR 09/27/17 21:18 HIV 1&2 Antibody Rapid Non react (Non React) 09/27/17 21:18 HIV P24 Antigen Non react (Non React) 09/27/17 21:18 Miscellaneous Test Flexitest 1 H 09/27/17 21:19
--- NOTE | 2017-10-10 12:19 | Progress Note ---
Assessment and Plan Acute CVA Presumed cardio-embolic given underlying severe cardiomyopathy Plan is to start oral anticoagulation in 2-3 weeks. Pneumonia Chronic systolic heart failure Currently mildly volume overloaded. Acute renal failure Improved. Cardiomyopathy, nonischemic EF 10-15% on echocardiogram. no significant obstructive CAD on [facility] this admission Diabetes Hypertension Hyperlipidemia Non Sustained Ventricular Tachycardia Multiple episodes noted on telemetry Recommend: Add low dose diuretic and closely monitor renal function Monitor and correct electrolytes. Set up life vest given severe non ischemic cardiomyopathy and multiple episodes of NSVT Subjective Date of service: 10/10/17 Principal diagnosis: stroke Interval history: Pt reports increasing shortness of breath and orthopnea over last 48 hours. Multiple episodes of NSVT noted on telemetry. Objective Vital Signs Temp Pulse Resp BP BP Pulse Ox 10/10/17 04:58 98.1 F 112 H 18 127/90 10/10/17 04:21 112 H 127/90 89 10/10/17 00:15 98.9 F 115 H 18 126/90 97 10/09/17 22:51 97 10/09/17 22:00 110 H 10/09/17 20:19 99.9 F H 111 H 20 116/78 98 10/09/17 19:14 115 H 111/70 94 10/09/17 17:50 121 H 135/98 10/09/17 16:46 121 H 135/98 97 10/09/17 15:58 114/85 10/09/17 12:42 98.3 F 18 114/85 - Physical Examination General: No Apparent Distress HEENT: Positive: PERRL Neck: Positive: neck supple, trachea midline Cardiac: Positive: Reg Rate and Rhythm Lungs: Positive: Rales (bibasilar crackles.) Abdomen: Positive: Soft, Active Bowel Sounds Skin: Positive: Clear Extremities: Present: edema (trace LE edema) - Labs and Meds CBC 10/10/17 Range/Units 08:35 WBC 12.9 H (4.5-11.0) K/mm3 RBC 3.93 (3.65-5.03) M/mm3 Hgb 10.7 L (11.8-15.2) gm/dl Hct 33.3 L (35.5-45.6) % Plt Count 379 (140-440) K/mm3 Lymph # 1.3 (1.2-5.4) K/mm3 [place] # 1.4 H (0.0-0.8) K/mm3 Eos # 0.1 (0.0-0.4) K/mm3 Baso # 0.1 (0.0-0.1) K/mm3 Comprehensive Metabolic Panel 10/10/17 Range/Units 08:35 Sodium 137 (137-145) mmol/L Potassium 4.8 (3.6-5.0) mmol/L Chloride 94.9 L (98-107) mmol/L Carbon Dioxide 25 (22-30) mmol/L BUN 40 H (9-20) mg/dL Creatinine 2.9 H (0.8-1.5) mg/dL Glucose 119 H (75-100) mg/dL Calcium 8.5 (8.4-10.2) mg/dL - Imaging and Cardiology EKG: image reviewed
--- NOTE | 2017-10-10 14:13 | Progress Note ---
Assessment and Plan Acute hypoxemic respiratory failure Bilateral pneumonia vs Pulmonary Edema Hyponatremia Diabetes, poorly controlled Morbid obesity Systolic heart failure, EF 15% Tobacco abuse disorder (Suspect significantly CT chest changes and mediastinopathy related to chronic pulmonary edema from decompensated CHF) - empiric antibiotics per ID recs; will send sputum for C&S - risks outweigh likely benefits from bronchoscopy at this time - continue supplemental oxygen to keep O2 sats>90% - continue heart failure measures, fluid and free water restriction - milrinone titration per cardiology - continue SSI for glycemic control - VTE prophylaxis - Smoking cessation counselling done at bedside again - continue nicotine withdrawal precautions - Outpatient sleep study ...36' Subjective Date of service: 10/10/17 Principal diagnosis: Acute Hypoxemic Resp Failure; Bilateral Pulmonary Infiltrates; HFrEF Interval history: Patient is seen today for: Acute Hypoxemic Resp Failure; Bilateral Pulmonary Infiltrates; HFrEF Seen and examined at bedside; 24hour events reviewed; nursing and respiratory care staff consulted; no adverse overnight events reported to me; resting in bed ; Objective Vital Signs - 12hr 10/10/17 10/10/17 10/10/17 04:21 04:58 10:00 Temperature 98.1 F Pulse Rate 112 H 112 H Respiratory 18 Rate Blood Pressure 127/90 Blood Pressure 127/90 [Left] O2 Sat by Pulse 89 94 Oximetry Constitutional: no acute distress, alert Eyes: non-icteric ENT: oropharynx moist, other (No thyromegaly) Neck: supple, no lymphadenopathy, no JVD Effort: mildly labored Ascultation: Bilateral: diminished breath sounds, rales (bases) Percussion: Bilateral: not dull Cardiovascular: regular rate and rhythm, murmur noted, other (no rubs) Gastrointestinal: normoactive bowel sounds, soft, non-tender, non-distended, other (no palpable HSM) Integumentary: normal Extremities: no cyanosis, pulses normal, no ischemia or petechiae, edema Neurologic: normal mental status, non-focal exam, pupils equal and round, CN II- XII normal Psychiatric: mood appropriate, affect normal CBC and BMP: 10/10/17 08:35 10/10/17 08:35 ABG, PT/INR, D-dimer: ABG POC ABG pH 7.459 (7.35-7.45) H 09/23/17 15:04 POC ABG pCO2 34.8 (35-45) L 09/23/17 15:04 POC ABG pO2 54 (80-105) L 09/23/17 15:04 POC ABG HCO3 24.7 09/23/17 15:04 POC ABG Total CO2 26 09/23/17 15:04 POC ABG O2 Sat 89 09/23/17 15:04 PT/INR, D-dimer PT 15.7 Sec. (12.2-14.9) H 10/08/17 04:59 INR 1.19 (0.87-1.13) H 10/08/17 04:59 Abnormal lab findings: Abnormal Labs 09/22/17 09/22/17 09/22/17 21:30 21:31 21:31 WBC RBC Hgb Hct MCH RDW 15.3 H Lymph % (Auto) [place] % (Auto) 9.6 H Eos % (Auto) Lymph # [place] # 0.9 H Seg Neutrophils % 72.0 H Seg Neuts % (Manual) Monocytes % (Manual) Seg Neutrophils # PT INR POC ABG pH POC ABG pCO2 POC ABG pO2 Sodium Chloride Carbon Dioxide BUN Creatinine Glucose POC Glucose Calcium Total Creatine Kinase 371 H Troponin T 0.260 H* C-Reactive Protein NT-Pro-B Natriuret Pep 5093 H Albumin Triglycerides 226 H Cholesterol 235 H LDL Cholesterol Direct 164 H HDL Cholesterol 26 L Urine Creatinine Vancomycin Trough Miscellaneous Test 09/22/17 09/22/17 09/23/17 22:54 22:54 04:00 WBC RBC Hgb Hct MCH RDW Lymph % (Auto) [place] % (Auto) 11.9 H Eos % (Auto) Lymph # [place] # Seg Neutrophils % Seg Neuts % (Manual) Monocytes % (Manual) Seg Neutrophils # PT INR POC ABG pH POC ABG pCO2 POC ABG pO2 Sodium 129 L Chloride 91.6 L Carbon Dioxide BUN Creatinine 0.7 L Glucose 256 H POC Glucose Calcium 7.9 L Total Creatine Kinase 211 H Troponin T 0.344 H* D C-Reactive Protein NT-Pro-B Natriuret Pep Albumin Triglycerides Cholesterol LDL Cholesterol Direct HDL Cholesterol Urine Creatinine Vancomycin Trough Miscellaneous Test 09/23/17 09/23/17 09/23/17 04:00 04:10 09:09 WBC RBC Hgb Hct MCH RDW Lymph % (Auto) [place] % (Auto) Eos % (Auto) Lymph # [place] # Seg Neutrophils % Seg Neuts % (Manual) Monocytes % (Manual) Seg Neutrophils # PT INR POC ABG pH POC ABG pCO2 POC ABG pO2 Sodium 136 L D Chloride 95.3 L Carbon Dioxide BUN Creatinine Glucose 181 H POC Glucose 166 H Calcium 7.7 L Total Creatine Kinase Troponin T 0.287 H* C-Reactive Protein NT-Pro-B Natriuret Pep Albumin Triglycerides Cholesterol LDL Cholesterol Direct HDL Cholesterol Urine Creatinine Vancomycin Trough Miscellaneous Test 09/23/17 09/23/17 09/23/17 11:40 13:19 15:04 WBC RBC Hgb Hct MCH RDW Lymph % (Auto) [place] % (Auto) Eos % (Auto) Lymph # [place] # Seg Neutrophils % Seg Neuts % (Manual) Monocytes % (Manual) Seg Neutrophils # PT INR POC ABG pH 7.459 H POC ABG pCO2 34.8 L POC ABG pO2 54 L Sodium Chloride Carbon Dioxide BUN Creatinine Glucose POC Glucose 221 H 267 H Calcium Total Creatine Kinase Troponin T C-Reactive Protein NT-Pro-B Natriuret Pep Albumin Triglycerides Cholesterol LDL Cholesterol Direct HDL Cholesterol Urine Creatinine Vancomycin Trough Miscellaneous Test 09/23/17 09/23/17 09/24/17 15:57 22:07 04:40 WBC RBC Hgb Hct MCH RDW Lymph % (Auto) [place] % (Auto) 11.4 H Eos % (Auto) Lymph # [place] # Seg Neutrophils % Seg Neuts % (Manual) Monocytes % (Manual) Seg Neutrophils # PT INR POC ABG pH POC ABG pCO2 POC ABG pO2 Sodium Chloride Carbon Dioxide BUN Creatinine Glucose POC Glucose 281 H 166 H Calcium Total Creatine Kinase Troponin T C-Reactive Protein NT-Pro-B Natriuret Pep Albumin Triglycerides Cholesterol LDL Cholesterol Direct HDL Cholesterol Urine Creatinine Vancomycin Trough Miscellaneous Test 09/24/17 09/24/17 09/24/17 04:40 08:42 12:17 WBC RBC Hgb Hct MCH RDW Lymph % (Auto) [place] % (Auto) Eos % (Auto) Lymph # [place] # Seg Neutrophils % Seg Neuts % (Manual) Monocytes % (Manual) Seg Neutrophils # PT INR POC ABG pH POC ABG pCO2 POC ABG pO2 Sodium 133 L Chloride 95.6 L Carbon Dioxide BUN Creatinine 0.7 L Glucose 251 H POC Glucose 173 H 209 H Calcium 7.8 L Total Creatine Kinase Troponin T C-Reactive Protein NT-Pro-B Natriuret Pep Albumin Triglycerides Cholesterol LDL Cholesterol Direct HDL Cholesterol Urine Creatinine Vancomycin Trough Miscellaneous Test 09/24/17 09/24/17 09/25/17 16:13 21:21 12:44 WBC RBC Hgb Hct MCH RDW Lymph % (Auto) [place] % (Auto) Eos % (Auto) Lymph # [place] # Seg Neutrophils % Seg Neuts % (Manual) Monocytes % (Manual) Seg Neutrophils # PT INR POC ABG pH POC ABG pCO2 POC ABG pO2 Sodium Chloride Carbon Dioxide BUN Creatinine Glucose POC Glucose 248 H 152 H 185 H Calcium Total Creatine Kinase Troponin T C-Reactive Protein NT-Pro-B Natriuret Pep Albumin Triglycerides Cholesterol LDL Cholesterol Direct HDL Cholesterol Urine Creatinine Vancomycin Trough Miscellaneous Test 09/25/17 09/25/17 09/26/17 17:18 23:10 05:35 WBC 15.6 H RBC Hgb Hct MCH RDW Lymph % (Auto) [place] % (Auto) Eos % (Auto) Lymph # [place] # Seg Neutrophils % 78.5 H Seg Neuts % (Manual) Monocytes % (Manual) Seg Neutrophils # 12.2 H PT INR POC ABG pH POC ABG pCO2 POC ABG pO2 Sodium Chloride Carbon Dioxide BUN Creatinine Glucose POC Glucose 186 H 187 H Calcium Total Creatine Kinase Troponin T C-Reactive Protein NT-Pro-B Natriuret Pep Albumin Triglycerides Cholesterol LDL Cholesterol Direct HDL Cholesterol Urine Creatinine Vancomycin Trough Miscellaneous Test 09/26/17 09/26/17 09/26/17 05:35 09:02 12:20 WBC RBC Hgb Hct MCH RDW Lymph % (Auto) [place] % (Auto) Eos % (Auto) Lymph # [place] # Seg Neutrophils % Seg Neuts % (Manual) Monocytes % (Manual) Seg Neutrophils # PT INR POC ABG pH POC ABG pCO2 POC ABG pO2 Sodium 133 L Chloride 95.2 L Carbon Dioxide BUN Creatinine 0.7 L Glucose 161 H POC Glucose 131 H 199 H Calcium 8.3 L Total Creatine Kinase Troponin T C-Reactive Protein NT-Pro-B Natriuret Pep Albumin Triglycerides Cholesterol LDL Cholesterol Direct HDL Cholesterol Urine Creatinine Vancomycin Trough Miscellaneous Test 09/26/17 09/26/17 09/27/17 16:39 21:45 07:24 WBC RBC Hgb Hct MCH RDW Lymph % (Auto) [place] % (Auto) Eos % (Auto) Lymph # [place] # Seg Neutrophils % Seg Neuts % (Manual) Monocytes % (Manual) Seg Neutrophils # PT INR POC ABG pH POC ABG pCO2 POC ABG pO2 Sodium Chloride Carbon Dioxide BUN Creatinine Glucose POC Glucose 209 H 194 H 210 H Calcium Total Creatine Kinase Troponin T C-Reactive Protein NT-Pro-B Natriuret Pep Albumin Triglycerides Cholesterol LDL Cholesterol Direct HDL Cholesterol Urine Creatinine Vancomycin Trough Miscellaneous Test 09/27/17 09/27/17 09/27/17 09:20 09:20 11:50 WBC RBC Hgb 11.0 L Hct MCH RDW Lymph % (Auto) [place] % (Auto) Eos % (Auto) Lymph # [place] # Seg Neutrophils % 77.2 H Seg Neuts % (Manual) Monocytes % (Manual) Seg Neutrophils # PT INR POC ABG pH POC ABG pCO2 POC ABG pO2 Sodium 134 L Chloride 96.1 L Carbon Dioxide BUN 21 H Creatinine Glucose 139 H POC Glucose Calcium 8.0 L Total Creatine Kinase Troponin T C-Reactive Protein NT-Pro-B Natriuret Pep Albumin Triglycerides Cholesterol LDL Cholesterol Direct HDL Cholesterol Urine Creatinine Vancomycin Trough 46.8 H Miscellaneous Test 09/27/17 09/27/17 09/27/17 11:50 12:18 17:00 WBC RBC Hgb 10.7 L Hct 32.1 L D MCH RDW Lymph % (Auto) [place] % (Auto) Eos % (Auto) Lymph # [place] # Seg Neutrophils % 80.6 H Seg Neuts % (Manual) Monocytes % (Manual) Seg Neutrophils # PT INR POC ABG pH POC ABG pCO2 POC ABG pO2 Sodium Chloride Carbon Dioxide BUN Creatinine Glucose POC Glucose 274 H 169 H Calcium Total Creatine Kinase Troponin T C-Reactive Protein NT-Pro-B Natriuret Pep Albumin Triglycerides Cholesterol LDL Cholesterol Direct HDL Cholesterol Urine Creatinine Vancomycin Trough Miscellaneous Test 09/27/17 09/27/17 09/27/17 21:18 21:19 23:28 WBC RBC Hgb Hct MCH RDW Lymph % (Auto) [place] % (Auto) Eos % (Auto) Lymph # [place] # Seg Neutrophils % Seg Neuts % (Manual) Monocytes % (Manual) Seg Neutrophils # PT INR POC ABG pH POC ABG pCO2 POC ABG pO2 Sodium Chloride Carbon Dioxide BUN Creatinine Glucose POC Glucose 251 H Calcium Total Creatine Kinase Troponin T C-Reactive Protein 34.90 H NT-Pro-B Natriuret Pep Albumin Triglycerides Cholesterol LDL Cholesterol Direct HDL Cholesterol Urine Creatinine Vancomycin Trough Miscellaneous Test Flexitest 1 H 09/27/17 09/28/17 09/28/17 23:49 07:00 07:00 WBC RBC 3.44 L Hgb 9.9 L Hct 29.6 L MCH RDW Lymph % (Auto) [place] % (Auto) Eos % (Auto) Lymph # 1.0 L [place] # Seg Neutrophils % 76.2 H Seg Neuts % (Manual) Monocytes % (Manual) Seg Neutrophils # PT INR POC ABG pH POC ABG pCO2 POC ABG pO2 Sodium 128 L Chloride 92.1 L Carbon Dioxide 20 L BUN 40 H Creatinine 3.1 H D Glucose 199 H POC Glucose 233 H Calcium 7.5 L Total Creatine Kinase Troponin T C-Reactive Protein NT-Pro-B Natriuret Pep Albumin Triglycerides Cholesterol LDL Cholesterol Direct HDL Cholesterol Urine Creatinine Vancomycin Trough Miscellaneous Test 09/28/17 09/28/17 09/28/17 07:00 08:03 13:31 WBC RBC Hgb Hct MCH RDW Lymph % (Auto) [place] % (Auto) Eos % (Auto) Lymph # [place] # Seg Neutrophils % Seg Neuts % (Manual) Monocytes % (Manual) Seg Neutrophils # PT INR POC ABG pH POC ABG pCO2 POC ABG pO2 Sodium Chloride Carbon Dioxide BUN Creatinine Glucose POC Glucose 165 H 237 H Calcium Total Creatine Kinase Troponin T C-Reactive Protein NT-Pro-B Natriuret Pep Albumin Triglycerides Cholesterol LDL Cholesterol Direct HDL Cholesterol Urine Creatinine Vancomycin Trough 36.3 H Miscellaneous Test 09/28/17 09/28/17 09/29/17 16:20 22:12 05:20 WBC RBC Hgb 11.4 L Hct 34.5 L MCH RDW Lymph % (Auto) 10.5 L [place] % (Auto) 9.1 H Eos % (Auto) Lymph # 0.5 L [place] # Seg Neutrophils % 75.8 H Seg Neuts % (Manual) Monocytes % (Manual) Seg Neutrophils # PT INR POC ABG pH POC ABG pCO2 POC ABG pO2 Sodium Chloride Carbon Dioxide BUN Creatinine Glucose POC Glucose 323 H 164 H Calcium Total Creatine Kinase Troponin T C-Reactive Protein NT-Pro-B Natriuret Pep Albumin Triglycerides Cholesterol LDL Cholesterol Direct HDL Cholesterol Urine Creatinine Vancomycin Trough Miscellaneous Test 09/29/17 09/29/17 09/29/17 05:20 07:53 16:21 WBC RBC Hgb Hct MCH RDW Lymph % (Auto) [place] % (Auto) Eos % (Auto) Lymph # [place] # Seg Neutrophils % Seg Neuts % (Manual) Monocytes % (Manual) Seg Neutrophils # PT INR POC ABG pH POC ABG pCO2 POC ABG pO2 Sodium 128 L Chloride 91.6 L Carbon Dioxide 21 L BUN 51 H Creatinine 3.8 H Glucose 161 H POC Glucose 128 H 141 H Calcium Total Creatine Kinase Troponin T C-Reactive Protein NT-Pro-B Natriuret Pep Albumin Triglycerides Cholesterol LDL Cholesterol Direct HDL Cholesterol Urine Creatinine Vancomycin Trough Miscellaneous Test 09/29/17 09/30/17 09/30/17 22:17 05:21 05:21 WBC RBC Hgb 10.3 L Hct 32.1 L MCH 27 L RDW Lymph % (Auto) 11.6 L [place] % (Auto) 9.3 H Eos % (Auto) 4.9 H Lymph # 0.8 L [place] # Seg Neutrophils % 73.6 H Seg Neuts % (Manual) Monocytes % (Manual) Seg Neutrophils # PT INR POC ABG pH POC ABG pCO2 POC ABG pO2 Sodium 127 L Chloride 90.9 L Carbon Dioxide BUN 52 H Creatinine 4.5 H Glucose 187 H POC Glucose 158 H Calcium 7.9 L Total Creatine Kinase Troponin T C-Reactive Protein NT-Pro-B Natriuret Pep Albumin Triglycerides Cholesterol LDL Cholesterol Direct HDL Cholesterol Urine Creatinine Vancomycin Trough Miscellaneous Test 09/30/17 09/30/17 09/30/17 07:47 11:55 21:44 WBC RBC Hgb Hct MCH RDW Lymph % (Auto) [place] % (Auto) Eos % (Auto) Lymph # [place] # Seg Neutrophils % Seg Neuts % (Manual) Monocytes % (Manual) Seg Neutrophils # PT INR POC ABG pH POC ABG pCO2 POC ABG pO2 Sodium Chloride Carbon Dioxide BUN Creatinine Glucose POC Glucose 137 H 184 H 141 H Calcium Total Creatine Kinase Troponin T C-Reactive Protein NT-Pro-B Natriuret Pep Albumin Triglycerides Cholesterol LDL Cholesterol Direct HDL Cholesterol Urine Creatinine Vancomycin Trough Miscellaneous Test 10/01/17 10/01/17 10/01/17 06:03 06:03 16:37 WBC RBC Hgb 11.3 L Hct 33.6 L MCH RDW Lymph % (Auto) 11.2 L [place] % (Auto) 10.2 H Eos % (Auto) Lymph # 1.1 L [place] # 1.0 H Seg Neutrophils % 74.5 H Seg Neuts % (Manual) Monocytes % (Manual) Seg Neutrophils # PT INR POC ABG pH POC ABG pCO2 POC ABG pO2 Sodium 130 L Chloride 92.3 L Carbon Dioxide BUN 53 H Creatinine 4.5 H Glucose POC Glucose 125 H Calcium 8.0 L Total Creatine Kinase Troponin T C-Reactive Protein NT-Pro-B Natriuret Pep Albumin Triglycerides Cholesterol LDL Cholesterol Direct HDL Cholesterol Urine Creatinine Vancomycin Trough Miscellaneous Test 10/01/17 10/01/17 10/02/17 20:41 21:47 06:21 WBC RBC Hgb 11.5 L Hct 34.5 L MCH RDW 15.3 H Lymph % (Auto) [place] % (Auto) 12.4 H Eos % (Auto) Lymph # 0.9 L [place] # Seg Neutrophils % 70.6 H Seg Neuts % (Manual) Monocytes % (Manual) Seg Neutrophils # PT INR POC ABG pH POC ABG pCO2 POC ABG pO2 Sodium Chloride Carbon Dioxide BUN Creatinine Glucose POC Glucose 115 H Calcium Total Creatine Kinase Troponin T C-Reactive Protein 7.60 H NT-Pro-B Natriuret Pep Albumin Triglycerides Cholesterol LDL Cholesterol Direct HDL Cholesterol Urine Creatinine Vancomycin Trough Miscellaneous Test 10/02/17 10/02/17 10/02/17 06:21 07:47 21:56 WBC RBC Hgb Hct MCH RDW Lymph % (Auto) [place] % (Auto) Eos % (Auto) Lymph # [place] # Seg Neutrophils % Seg Neuts % (Manual) Monocytes % (Manual) Seg Neutrophils # PT INR POC ABG pH POC ABG pCO2 POC ABG pO2 Sodium 133 L Chloride 92.7 L Carbon Dioxide BUN 51 H Creatinine 4.7 H Glucose 113 H POC Glucose 118 H 154 H Calcium 8.0 L Total Creatine Kinase Troponin T C-Reactive Protein NT-Pro-B Natriuret Pep Albumin Triglycerides Cholesterol LDL Cholesterol Direct HDL Cholesterol Urine Creatinine Vancomycin Trough Miscellaneous Test 10/03/17 10/03/17 10/03/17 06:13 06:13 16:50 WBC RBC Hgb 10.7 L Hct 31.9 L MCH RDW 15.6 H Lymph % (Auto) [place] % (Auto) Eos % (Auto) Lymph # [place] # Seg Neutrophils % Seg Neuts % (Manual) Monocytes % (Manual) Seg Neutrophils # PT INR POC ABG pH POC ABG pCO2 POC ABG pO2 Sodium 134 L Chloride 95.3 L Carbon Dioxide BUN 32 H Creatinine 3.7 H Glucose POC Glucose 126 H Calcium 7.8 L Total Creatine Kinase Troponin T C-Reactive Protein NT-Pro-B Natriuret Pep Albumin Triglycerides Cholesterol LDL Cholesterol Direct HDL Cholesterol Urine Creatinine Vancomycin Trough Miscellaneous Test 10/04/17 10/04/17 10/04/17 05:49 05:49 12:01 WBC RBC Hgb 10.8 L Hct 32.3 L MCH RDW 15.6 H Lymph % (Auto) [place] % (Auto) Eos % (Auto) Lymph # [place] # Seg Neutrophils % Seg Neuts % (Manual) 72.0 H Monocytes % (Manual) 9.0 H Seg Neutrophils # PT INR POC ABG pH POC ABG pCO2 POC ABG pO2 Sodium 133 L Chloride 93.7 L Carbon Dioxide BUN 23 H Creatinine 3.2 H Glucose POC Glucose 140 H Calcium 7.8 L Total Creatine Kinase Troponin T C-Reactive Protein NT-Pro-B Natriuret Pep Albumin Triglycerides Cholesterol LDL Cholesterol Direct HDL Cholesterol Urine Creatinine Vancomycin Trough Miscellaneous Test 10/04/17 10/04/17 10/05/17 17:35 20:44 05:34 WBC RBC 5.17 H Hgb Hct MCH 27 L RDW 15.5 H Lymph % (Auto) [place] % (Auto) 13.6 H Eos % (Auto) Lymph # [place] # 0.9 H Seg Neutrophils % Seg Neuts % (Manual) Monocytes % (Manual) Seg Neutrophils # PT INR POC ABG pH POC ABG pCO2 POC ABG pO2 Sodium Chloride Carbon Dioxide BUN Creatinine Glucose POC Glucose 143 H 135 H Calcium Total Creatine Kinase Troponin T C-Reactive Protein NT-Pro-B Natriuret Pep Albumin Triglycerides Cholesterol LDL Cholesterol Direct HDL Cholesterol Urine Creatinine Vancomycin Trough Miscellaneous Test 10/05/17 10/05/17 10/05/17 05:34 12:34 21:29 WBC RBC Hgb Hct MCH RDW Lymph % (Auto) [place] % (Auto) Eos % (Auto) Lymph # [place] # Seg Neutrophils % Seg Neuts % (Manual) Monocytes % (Manual) Seg Neutrophils # PT INR POC ABG pH POC ABG pCO2 POC ABG pO2 Sodium 132 L Chloride 92.7 L Carbon Dioxide BUN 36 H Creatinine 3.7 H Glucose POC Glucose 161 H 191 H Calcium 7.8 L Total Creatine Kinase Troponin T C-Reactive Protein NT-Pro-B Natriuret Pep Albumin Triglycerides Cholesterol LDL Cholesterol Direct HDL Cholesterol Urine Creatinine Vancomycin Trough Miscellaneous Test 10/06/17 10/06/17 10/06/17 05:50 05:50 13:14 WBC RBC Hgb 10.6 L D Hct 32.4 L D MCH RDW 15.5 H Lymph % (Auto) [place] % (Auto) 15.6 H Eos % (Auto) Lymph # [place] # 1.2 H Seg Neutrophils % Seg Neuts % (Manual) Monocytes % (Manual) Seg Neutrophils # PT INR POC ABG pH POC ABG pCO2 POC ABG pO2 Sodium 131 L Chloride 91.9 L Carbon Dioxide BUN 27 H Creatinine 3.0 H Glucose 140 H POC Glucose 162 H Calcium 7.9 L Total Creatine Kinase Troponin T C-Reactive Protein NT-Pro-B Natriuret Pep Albumin Triglycerides Cholesterol LDL Cholesterol Direct HDL Cholesterol Urine Creatinine Vancomycin Trough Miscellaneous Test 10/06/17 10/06/17 10/07/17 15:54 21:48 05:32 WBC RBC Hgb 11.3 L Hct 34.0 L MCH RDW 15.3 H Lymph % (Auto) [place] % (Auto) 13.4 H Eos % (Auto) Lymph # [place] # 1.1 H Seg Neutrophils % Seg Neuts % (Manual) Monocytes % (Manual) Seg Neutrophils # PT INR POC ABG pH POC ABG pCO2 POC ABG pO2 Sodium Chloride Carbon Dioxide BUN Creatinine Glucose POC Glucose 194 H 190 H Calcium Total Creatine Kinase Troponin T C-Reactive Protein NT-Pro-B Natriuret Pep Albumin Triglycerides Cholesterol LDL Cholesterol Direct HDL Cholesterol Urine Creatinine Vancomycin Trough Miscellaneous Test 10/07/17 10/07/17 10/07/17 05:32 05:32 08:43 WBC RBC Hgb Hct MCH RDW Lymph % (Auto) [place] % (Auto) Eos % (Auto) Lymph # [place] # Seg Neutrophils % Seg Neuts % (Manual) Monocytes % (Manual) Seg Neutrophils # PT INR POC ABG pH POC ABG pCO2 POC ABG pO2 Sodium 134 L Chloride 95.7 L Carbon Dioxide BUN 35 H Creatinine 3.3 H Glucose 101 H POC Glucose 131 H Calcium 8.1 L Total Creatine Kinase Troponin T C-Reactive Protein NT-Pro-B Natriuret Pep Albumin 2.8 L Triglycerides Cholesterol LDL Cholesterol Direct HDL Cholesterol Urine Creatinine Vancomycin Trough Miscellaneous Test 10/07/17 10/07/17 10/07/17 12:41 21:34 Unknown WBC RBC Hgb Hct MCH RDW Lymph % (Auto) [place] % (Auto) Eos % (Auto) Lymph # [place] # Seg Neutrophils % Seg Neuts % (Manual) Monocytes % (Manual) Seg Neutrophils # PT INR POC ABG pH POC ABG pCO2 POC ABG pO2 Sodium Chloride Carbon Dioxide BUN Creatinine Glucose POC Glucose 165 H 167 H Calcium Total Creatine Kinase Troponin T C-Reactive Protein NT-Pro-B Natriuret Pep Albumin Triglycerides Cholesterol LDL Cholesterol Direct HDL Cholesterol Urine Creatinine 45.7 H Vancomycin Trough Miscellaneous Test 10/08/17 10/08/17 10/08/17 04:59 04:59 04:59 WBC 11.2 H RBC Hgb 10.7 L Hct 32.5 L MCH RDW 15.5 H Lymph % (Auto) 13.2 L [place] % (Auto) 12.7 H Eos % (Auto) Lymph # [place] # 1.4 H Seg Neutrophils % 72.1 H Seg Neuts % (Manual) Monocytes % (Manual) Seg Neutrophils # 8.1 H PT 15.7 H INR 1.19 H POC ABG pH POC ABG pCO2 POC ABG pO2 Sodium 134 L Chloride 96.3 L Carbon Dioxide BUN 39 H Creatinine 3.4 H Glucose 105 H POC Glucose Calcium 8.3 L Total Creatine Kinase Troponin T C-Reactive Protein NT-Pro-B Natriuret Pep Albumin Triglycerides Cholesterol LDL Cholesterol Direct HDL Cholesterol Urine Creatinine Vancomycin Trough Miscellaneous Test 10/08/17 10/08/17 10/08/17 16:31 22:17 Unknown WBC RBC Hgb Hct MCH RDW Lymph % (Auto) [place] % (Auto) Eos % (Auto) Lymph # [place] # Seg Neutrophils % Seg Neuts % (Manual) Monocytes % (Manual) Seg Neutrophils # PT INR POC ABG pH POC ABG pCO2 POC ABG pO2 Sodium Chloride Carbon Dioxide BUN Creatinine Glucose POC Glucose 276 H 132 H Calcium Total Creatine Kinase Troponin T C-Reactive Protein NT-Pro-B Natriuret Pep Albumin Triglycerides Cholesterol LDL Cholesterol Direct HDL Cholesterol Urine Creatinine 45.5 H Vancomycin Trough Miscellaneous Test 10/09/17 10/09/17 10/09/17 05:49 05:49 08:47 WBC RBC Hgb 10.5 L Hct 31.8 L MCH RDW 15.8 H Lymph % (Auto) 8.5 L [place] % (Auto) 13.1 H Eos % (Auto) Lymph # 0.9 L [place] # 1.4 H Seg Neutrophils % 76.5 H Seg Neuts % (Manual) Monocytes % (Manual) Seg Neutrophils # 8.1 H PT INR POC ABG pH POC ABG pCO2 POC ABG pO2 Sodium 136 L Chloride Carbon Dioxide BUN 39 H Creatinine 3.1 H Glucose 139 H POC Glucose 121 H Calcium Total Creatine Kinase Troponin T C-Reactive Protein NT-Pro-B Natriuret Pep Albumin Triglycerides Cholesterol LDL Cholesterol Direct HDL Cholesterol Urine Creatinine Vancomycin Trough Miscellaneous Test 10/09/17 10/09/17 10/09/17 12:43 16:54 21:25 WBC RBC Hgb Hct MCH RDW Lymph % (Auto) [place] % (Auto) Eos % (Auto) Lymph # [place] # Seg Neutrophils % Seg Neuts % (Manual) Monocytes % (Manual) Seg Neutrophils # PT INR POC ABG pH POC ABG pCO2 POC ABG pO2 Sodium Chloride Carbon Dioxide BUN Creatinine Glucose POC Glucose 216 H 145 H 195 H Calcium Total Creatine Kinase Troponin T C-Reactive Protein NT-Pro-B Natriuret Pep Albumin Triglycerides Cholesterol LDL Cholesterol Direct HDL Cholesterol Urine Creatinine Vancomycin Trough Miscellaneous Test 10/10/17 10/10/17 10/10/17 08:35 08:35 12:06 WBC 12.9 H RBC Hgb 10.7 L Hct 33.3 L MCH 27 L RDW 15.4 H Lymph % (Auto) 10.3 L [place] % (Auto) 10.5 H Eos % (Auto) Lymph # [place] # 1.4 H Seg Neutrophils % 77.8 H Seg Neuts % (Manual) Monocytes % (Manual) Seg Neutrophils # 10.1 H PT INR POC ABG pH POC ABG pCO2 POC ABG pO2 Sodium Chloride 94.9 L Carbon Dioxide BUN 40 H Creatinine 2.9 H Glucose 119 H POC Glucose 151 H Calcium Total Creatine Kinase Troponin T C-Reactive Protein NT-Pro-B Natriuret Pep Albumin Triglycerides Cholesterol LDL Cholesterol Direct HDL Cholesterol Urine Creatinine Vancomycin Trough Miscellaneous Test
[2017-10-10] MEDS: LASIX PO SCH (15:34)
--- NOTE | 2017-10-10 18:53 | Progress Note ---
Assessment and Plan - Patient Problems (1) Bilateral pneumonia Current Visit: Yes Status: Acute Qualifiers: Pneumonia type: due to unspecified organism Lung location: unspecified part of lung Qualified Code(s): J18.9 - Pneumonia, unspecified organism Plan to address problem: S/p antibiotics Pulmonology consulted As per pulmonology and primary team (2) Acute renal failure (ARF) Current Visit: Yes Status: Acute Plan to address problem: Renal function reviewed, SCr level was 2.9 today, yesterday's SCr level was 3.1 No acute indication for HD today Assess need for HD on daily basis On Lasix 40 mg orally once a day, may need to increase Lasix if no significant improvement in shortness of breath Patient reported having increased shortness of breath, states he has been urinating ok, urinal in bathroom had approximately 400 ml of urine, states it's his second time urinating today. Discussed with nurse about contacting respiratory therapist for evaluation. Obtain Chest X Ray Renally dose medications Obtain daily weight Lyles Catheter: No Needs strict intake and output Renal plan discussed with Dr Flores Continue supportive therapy (3) Hyponatremia Current Visit: Yes Status: Acute Plan to address problem: Labs reviewed, stable, serum sodium level was 137 today Maintain fluid restriction of 750 ml per day On Lasix 40 mg orally once daily (4) Systolic heart failure Current Visit: Yes Status: Acute Plan to address problem: Cardiology on board, EF 10-15%, will be fitting for lifevest, follow up recs (5) CVA (cerebral vascular accident) Current Visit: Yes Status: Acute Plan to address problem: Neurology on board, stroke in medial occipital and medial temporal lobe, [employer] left sided clot on MRA of head, follow up recs (6) Diabetes mellitus type 2, insulin dependent Current Visit: No Status: Acute Plan to address problem: On insulin As per primary team Subjective Date of service: 10/10/17 Principal diagnosis: Acute Hypoxemic Resp Failure; Bilateral Pulmonary Infiltrates; HFrEF Interval history: Patient reports having increased shortness of breath today, currently on 40% venti-mask, states wears BIPAP at night. No family at bedside at time of my examination. Objective - Vital Signs Vital signs: Vital Signs - 12hr 10/10/17 10/10/17 10:00 17:22 Pulse Rate 98 H 110 H Blood Pressure 134/96 O2 Sat by Pulse 94 Oximetry - General Appearance General appearance: well-developed (no acute distress) EENT: ATNC Neck: no JVD Respiratory: Present: Other (Lung sounds decreased bilaterally, unlabored on 40 % venti-mask) Cardiology: regular, S1S2, other (ACCESS: Right IJ Vas Catheter intact) Gastrointestinal: normoactive bowel sounds, no tenderness Integumentary: warm and dry Neurologic: alert and oriented x3 Musculoskeletal: other (trace edema to both lower extremities) Psychiatric: mood/affect appropriate, cooperative - Lab 10/10/17 08:35 10/10/17 08:35 Most recent lab results Calcium 8.5 mg/dL (8.4-10.2) 10/10/17 08:35 Phosphorus 3.90 mg/dL (2.5-4.5) 10/10/17 08:35 Magnesium 1.70 mg/dL (1.7-2.3) 09/26/17 05:35 Urine Creatinine 45.5 mg/dL (0.1-20.0) H 10/08/17 Unknown
--- NOTE | 2017-10-10 20:29 | XRay Report ---
FINAL REPORT EXAM: XR CHEST 1V AP HISTORY: shortness of breath TECHNIQUE: AP portable semi erect chest x-ray Comparison: 09/30/2017, 09/22/2017 FINDINGS: There has been interval placement of a right internal jugular central line with tip in the region of the superior vena cava. No pneumothorax. There has been improvement in the bilateral dense infiltrates seen previously. Heart size remains enlarged. IMPRESSION: Interval placement right central line with tip in the region of the superior vena cava. No pneumothorax. Improving bilateral dense infiltrates. Persistent cardiomegaly.
[2017-10-10] MEDS: PRAVACHOL PO SCH (22:09)
[2017-10-10] MEDS: AMBIEN PO PRN (22:09)
[2017-10-10] MEDS: LEVEMIR SUB-Q SCH (22:11)
[2017-10-11] MEDS: APRESOLINE PO SCH ×3 (06:07→22:52)
[2017-10-11] MEDS: LOPRESSOR PO SCH ×4 (06:07→22:52)
[2017-10-11] MEDS: NOVOLOG SUB-Q SCH ×4 (08:30→22:57)
[2017-10-11 08:52] LABS: Basophils # (Auto) 0.1 K/mm3 (0.0-0.1); Basophils % (Auto) 0.8 % (0.0-1.8); Eosinophils # (Auto) 0.1 K/mm3 (0.0-0.4); Eosinophils % (Auto) 0.9 % (0.0-4.3); Hematocrit 33.4 % (35.5-45.6); Hemoglobin 10.8 gm/dl (11.8-15.2); Lymphocytes # (Auto) 1.6 K/mm3 (1.2-5.4); Lymphocytes % (Auto) 15.5 % (13.4-35.0); Mean Corpuscular HGB Conc 32 % (32-34); Mean Corpuscular Hemoglobin 27 pg (28-32); Mean Corpuscular Volume 84 fl (84-94); Monocytes # (Auto) 1.1 K/mm3 (0.0-0.8); Monocytes % (Auto) 11.1 % (0.0-7.3); Platelet Count 378 K/mm3 (140-440); Red Blood Count 3.95 M/mm3 (3.65-5.03); Red Cell Distribution Width 15.6 % (13.2-15.2)
[2017-10-11 09:10] LABS: Calcium 8.8 mg/dL (8.4-10.2)
[2017-10-11] MEDS: LASIX PO SCH (09:19)
[2017-10-11] MEDS: BABY ASPIRIN PO SCH (09:19)
[2017-10-11] MEDS: PROTONIX PO SCH (09:19)
[2017-10-11] MEDS: LOVENOX SUB-Q SCH ×2 (09:23→09:27)
--- NOTE | 2017-10-11 13:24 | Progress Note ---
Assessment and Plan Assessment and plan: Acute hypoxic respiratory failure due to bilateral pneumonnia Acute Renal failure -Patient was receiving hemodialysis . Creatinine improving, 2.6 today -Assess need for HD on daily basis as per Nephrology -Avoid Nephrotoxic agents -Renally dose medications -Obtain daily weights -Monitor intake and output -Monitor renal function closely -Renal ultrasound showed no hydronephrosis -Nephrology following -If renal function stable, may dc home soon Sepsis -Etiology secondary to pneumonia. -follow up Legionella urine antigen, Streptococcus pneumoniae urine antigen -Blood cultures thus far negative. -continue abx per ID Patient refused MAYKEL Bilateral pneumonia - On IV antibiotics , Levaquin and Zyvox - Pulmonary following Cardiomyopathy - EF of 10-15%, systolic dysfunction - continue with CHF medications -Patient previously on milrinone drip per cardiology - Cardiology following NSVT -Patient had runs of V. tach -Practice Advisor recommends life vest prior to dc Acute on chronic systolic heart failure. -shortness of breath today. Lasix iv Hyponatremia -Fluid restriction of 750ml per day -Follow BMP DM with hyperglycemia - SSI and basal insulin Acute ischemic stroke left occipital lobe. On Aspirin Neurology following Right homonymous visual field defect -Neuro following. -Ophthalmology outpatient follow-up DVT prophylaxis - On lovenox Medical non-compliance. He has been refusing medications. lasix, Lovenox. I discussed with him importance of medications and compliance. Disposition. -Continue inpatient management. [phone] , [place] number to arrange for follow-up at the time of discharge. History Interval history: Right visual field defect No chest pain, Shortness of breath Rusing medications-LasdeborahLovenox Hospitalist Physical - Physical exam Narrative exam: GEN APPEARANCE : Not in acute distress,obese HEENT: Normocephalic, Atraumatic NECK : supple, no JVD LUNGS: bilateral rales, no wheeze HEART: S1 and S2 regular, no murmurs, rubs or gallop, ABD: Soft, non tender, non distended, normal bowel sounds EXT:No edema, no clubbing, no cyanosis NEURO: Awake, alert,oriented x 3, right visual field defect - Constitutional Vitals: Temp Pulse Resp BP Pulse Ox 97.9 F 100 H 22 115/84 95 10/11/17 08:00 10/11/17 10:00 10/11/17 08:22 10/11/17 08:00 10/11/17 08:00 General appearance: Present: no acute distress Results - Labs CBC & Chem 7: 10/11/17 08:29 10/11/17 08:29 Labs: Laboratory Last Values WBC 10.1 K/mm3 (4.5-11.0) 10/11/17 08: RBC 3.95 M/mm3 (3.65-5.03) 10/11/17 08: Hgb 10.8 gm/dl (11.8-15.2) L 10/11/17 08: Hct 33.4 % (35.5-45.6) L 10/11/17 08: MCV 84 fl (84-94) 10/11/17 08: MCH 27 pg (28-32) L 10/11/17 08: MCHC 32 % (32-34) 10/11/17 08: RDW 15.6 % (13.2-15.2) H 10/11/17 08: Plt Count 378 K/mm3 (140-440) 10/11/17 08:29 Lymph % (Auto) 15.5 % (13.4-35.0) 10/11/17 08: Nye % (Auto) 11.1 % (0.0-7.3) H 10/11/17 08: Eos % (Auto) 0.9 % (0.0-4.3) 10/11/17 08: Baso % (Auto) 0.8 % (0.0-1.8) 10/11/17 08: Lymph # 1.6 K/mm3 (1.2-5.4) 10/11/17 08: [place] # 1.1 K/mm3 (0.0-0.8) H 10/11/17 08:29 Eos # 0.1 K/mm3 (0.0-0.4) 10/11/17 08: Baso # 0.1 K/mm3 (0.0-0.1) 10/11/17 08:29 Add Manual Diff Complete 10/04/17 05:49 Total Counted 100 10/04/17 05:49 Seg Neutrophils % 71.7 % (40.0-70.0) H 10/11/17 08:29 Seg Neuts % (Manual) 72.0 % (40.0-70.0) H 10/04/17 05:49 Band Neutrophils % 0 % 10/04/17 05:49 Lymphocytes % (Manual) 17.0 % (13.4-35.0) 10/04/17 05:49 Reactive Lymphs % (Man) 0 % 10/04/17 05:49 Monocytes % (Manual) 9.0 % (0.0-7.3) H 10/04/17 05:49 Eosinophils % (Manual) 2.0 % (0.0-4.3) 10/04/17 05:49 Basophils % (Manual) 0 % (0.0-1.8) 10/04/17 05:49 Metamyelocytes % 0 % 10/04/17 05:49 Myelocytes % 0 % 10/04/17 05:49 Promyelocytes % 0 % 10/04/17 05:49 Blast Cells % 0 % 10/04/17 05:49 Nucleated RBC % Not Reportable 10/04/17 05:49 Seg Neutrophils # 7.3 K/mm3 (1.8-7.7) 10/11/17 08:29 Seg Neutrophils # Man 5.3 K/mm3 (1.8-7.7) 10/04/17 05:49 Band Neutrophils # 0.0 K/mm3 10/04/17 05:49 Lymphocytes # (Manual) 1.3 K/mm3 (1.2-5.4) 10/04/17 05:49 Abs React Lymphs (Man) 0.0 K/mm3 10/04/17 05:49 Monocytes # (Manual) 0.7 K/mm3 (0.0-0.8) 10/04/17 05:49 Eosinophils # (Manual) 0.1 K/mm3 (0.0-0.4) 10/04/17 05:49 Basophils # (Manual) 0.0 K/mm3 (0.0-0.1) 10/04/17 05:49 Metamyelocytes # 0.0 K/mm3 10/04/17 05:49 Myelocytes # 0.0 K/mm3 10/04/17 05:49 Promyelocytes # 0.0 K/mm3 10/04/17 05:49 Blast Cells # 0.0 K/mm3 10/04/17 05:49 WBC Morphology Not Reportable 10/04/17 05:49 Hypersegmented Neuts Not Reportable 10/04/17 05:49 Hyposegmented Neuts Not Reportable 10/04/17 05:49 Hypogranular Neuts Not Reportable 10/04/17 05:49 Smudge Cells Not Reportable 10/04/17 05:49 Toxic Granulation Not Reportable 10/04/17 05:49 Toxic Vacuolation Not Reportable 10/04/17 05:49 Dohle Bodies Not Reportable 10/04/17 05:49 Pelger-Huet Anomaly Not Reportable 10/04/17 05:49 Diaz Rods Not Reportable 10/04/17 05:49 Platelet Estimate Appears normal 10/04/17 05:49 Clumped Platelets Not Reportable 10/04/17 05:49 Plt Clumps, EDTA Not Reportable 10/04/17 05:49 Large Platelets Not Reportable 10/04/17 05:49 Giant Platelets Not Reportable 10/04/17 05:49 Platelet Satelliting Not Reportable 10/04/17 05:49 Plt Morphology Comment Not Reportable 10/04/17 05:49 RBC Morphology Not Reportable 10/04/17 05:49 Dimorphic RBCs Not Reportable 10/04/17 05:49 Polychromasia Few 10/04/17 05:49 Hypochromasia Not Reportable 10/04/17 05:49 Poikilocytosis Not Reportable 10/04/17 05:49 Anisocytosis 1+ 10/04/17 05:49 Microcytosis Not Reportable 10/04/17 05:49 Macrocytosis Not Reportable 10/04/17 05:49 Spherocytes Not Reportable 10/04/17 05:49 Pappenheimer Bodies Not Reportable 10/04/17 05:49 Sickle Cells Not Reportable 10/04/17 05:49 Target Cells Not Reportable 10/04/17 05:49 Tear Drop Cells Not Reportable 10/04/17 05:49 Ovalocytes Not Reportable 10/04/17 05:49 Helmet Cells Not Reportable 10/04/17 05:49 [place] Bodies Not Reportable 10/04/17 05:49 [place] Rings Not Reportable 10/04/17 05:49 [place] Cells Not Reportable 10/04/17 05:49 Bite Cells Not Reportable 10/04/17 05:49 Crenated Cell Not Reportable 10/04/17 05:49 Elliptocytes Not Reportable 10/04/17 05:49 Acanthocytes (Spur) Not Reportable 10/04/17 05:49 Rouleaux Not Reportable 10/04/17 05:49 Hemoglobin C Crystals Not Reportable 10/04/17 05:49 Schistocytes Not Reportable 10/04/17 05:49 Malaria parasites Not Reportable 10/04/17 05:49 Dash Bodies Not Reportable 10/04/17 05:49 Hem Pathologist Commnt No 10/04/17 05:49 PT 15.7 Sec. (12.2-14.9) H 10/08/17 04:59 INR 1.19 (0.87-1.13) H 10/08/17 04:59 POC ABG pH 7.459 (7.35-7.45) H 09/23/17 15:04 POC ABG pCO2 34.8 (35-45) L 09/23/17 15:04 POC ABG pO2 54 (80-105) L 09/23/17 15:04 POC ABG HCO3 24.7 09/23/17 15:04 POC ABG Total CO2 26 09/23/17 15:04 POC ABG O2 Sat 89 09/23/17 15:04 POC ABG Base Excess 1 09/23/17 15:04 FiO2 21 % 09/23/17 15:04 Sodium 137 mmol/L (137-145) 10/11/17 08:29 Potassium 4.4 mmol/L (3.6-5.0) 10/11/17 08:29 Chloride 98.0 mmol/L (98-107) 10/11/17 08:29 Carbon Dioxide 25 mmol/L (22-30) 10/11/17 08:29 Anion Gap 18 mmol/L 10/11/17 08:29 BUN 37 mg/dL (9-20) H 10/11/17 08:29 Creatinine 2.6 mg/dL (0.8-1.5) H 10/11/17 08:29 Estimated GFR 33 ml/min 10/11/17 08:29 BUN/Creatinine Ratio 14 % 10/11/17 08:29 Glucose 116 mg/dL (75-100) H 10/11/17 08:29 POC Glucose 107 (70-105) H 10/11/17 11:52 Osmolality 299 Mosm/kg 09/30/17 05:21 Calcium 8.8 mg/dL (8.4-10.2) 10/11/17 08:29 Phosphorus 4.30 mg/dL (2.5-4.5) 10/11/17 08:29 Magnesium 1.70 mg/dL (1.7-2.3) 09/26/17 05:35 Total Bilirubin 0.40 mg/dL (0.1-1.2) 10/07/17 05:32 Direct Bilirubin < 0.2 mg/dL (0-0.2) 10/07/17 05:32 AST 21 units/L (5-40) 10/07/17 05:32 ALT 32 units/L (7-56) 10/07/17 05:32 Alkaline Phosphatase 119 units/L (35-129) 10/07/17 05:32 Total Creatine Kinase 170 units/L (55-170) 09/23/17 04:10 CK-MB (CK-2) 1.4 ng/mL (0.0-4.0) 09/23/17 04:10 CK-MB (CK-2) Rel Index 0.8 (0-4) 09/23/17 04:10 Troponin T 0.287 ng/mL (0.00-0.029) H* 09/23/17 04:10 C-Reactive Protein 7.60 mg/dL (0.00-1.30) H 10/01/17 20:41 NT-Pro-B Natriuret Pep 5093 pg/mL (0-450) H 09/22/17 21:31 Total Protein 7.2 g/dL (6.3-8.2) 10/07/17 05:32 Albumin 2.8 g/dL (3.9-5) L 10/07/17 05:32 Albumin/Globulin Ratio 0.6 % 10/07/17 05:32 Triglycerides 226 mg/dL (2-149) H 09/22/17 21:31 Cholesterol 235 mg/dL (50-199) H 09/22/17 21:31 LDL Cholesterol Direct 164 mg/dL (50-130) H 09/22/17 21:31 HDL Cholesterol 26 mg/dL (40-59) L 09/22/17 21:31 Cholesterol/HDL Ratio 9.03 % 09/22/17 21:31 Urine Eosinophils None seen (None Seen) 09/29/17 Unknown Urine Total Volume 2100 10/08/17 Unknown Urine Creatinine 45.5 mg/dL (0.1-20.0) H 10/08/17 Unknown Ur Creatinine 24 Hour 1.0 (0.8-2.8) 10/07/17 Unknown Height (in) 69.0 inches 10/08/17 Unknown Weight (lb) 220.0 lbs 10/08/17 Unknown Creatinine Clearance 15 10/08/17 Unknown Vancomycin Trough 36.3 ug/mL (5.0-20.0) H 09/28/17 07:00 Hepatitis A IgM Ab Non-reactive (NonReactive) 10/02/17 17:35 Hep Bs Antigen Non-reactive (Negative) 10/02/17 17:35 Hep B Core IgM Ab Non-reactive (NonReactive) 10/02/17 17:35 Hepatitis C Antibody Non-reactive (NonReactive) 10/02/17 17:35 HIV-1 RNA PCR copies/ml TNR 09/27/17 21:18 HIV-1 RNA (PCR) log TNR 09/27/17 21:18 HIV 1&2 Antibody Rapid Non react (Non React) 09/27/17 21:18 HIV P24 Antigen Non react (Non React) 09/27/17 21:18 Miscellaneous Test Flexitest 1 H 09/27/17 21:19
--- NOTE | 2017-10-11 13:54 | Progress Note ---
Assessment and Plan Acute CVA Presumed cardio-embolic given underlying severe cardiomyopathy Plan is to start oral anticoagulation in 2-3 weeks. Pneumonia Chronic systolic heart failure Currently mildly volume overloaded. Acute renal failure Improved. Cardiomyopathy, nonischemic EF 10-15% on echocardiogram. no significant obstructive CAD on [facility] this admission Diabetes Hypertension Hyperlipidemia Non Sustained Ventricular Tachycardia Multiple episodes noted on telemetry Recommend: Continue low dose diuretic and closely monitor renal function Monitor and correct electrolytes. Set up life vest given severe non ischemic cardiomyopathy and multiple episodes of NSVT Will defer restarting amlodipine for now as we do not want to lower BP too much in setting of recent CVA - extensively explained to patient. Subjective Date of service: 10/11/17 Principal diagnosis: Acute Hypoxemic Resp Failure; Bilateral Pulmonary Infiltrates; HFrEF Interval history: No new complaints. Shortness of breath is about the same as yesterday. He insists that amlodipine has previously helped him with CHF and would like this medication restarted. Objective Vital Signs Temp Pulse Resp BP Pulse Ox 10/11/17 11:47 100 H 125/95 95 10/11/17 10:00 100 H 10/11/17 08:22 22 10/11/17 08:00 97.9 F 101 H 18 115/84 95 10/11/17 06:03 98.1 F 99 H 20 117/87 93 10/10/17 23:52 109 H 20 117/76 100 10/10/17 22:22 94 10/10/17 22:00 100 H 10/10/17 21:08 99.1 F 109 H 20 112/84 91 10/10/17 17:22 110 H 134/96 10/10/17 16:23 110 H 134/96 96 - Physical Examination General: No Apparent Distress HEENT: Positive: PERRL Neck: Positive: neck supple, trachea midline Cardiac: Positive: Reg Rate and Rhythm Lungs: Positive: Decreased Breath Sounds Abdomen: Positive: Soft, Active Bowel Sounds Skin: Positive: Clear Extremities: Present: edema (trace LE edema) - Labs and Meds CBC 10/11/17 Range/Units 08:29 WBC 10.1 (4.5-11.0) K/mm3 RBC 3.95 (3.65-5.03) M/mm3 Hgb 10.8 L (11.8-15.2) gm/dl Hct 33.4 L (35.5-45.6) % Plt Count 378 (140-440) K/mm3 Lymph # 1.6 (1.2-5.4) K/mm3 [place] # 1.1 H (0.0-0.8) K/mm3 Eos # 0.1 (0.0-0.4) K/mm3 Baso # 0.1 (0.0-0.1) K/mm3 Comprehensive Metabolic Panel 10/11/17 Range/Units 08:29 Sodium 137 (137-145) mmol/L Potassium 4.4 (3.6-5.0) mmol/L Chloride 98.0 (98-107) mmol/L Carbon Dioxide 25 (22-30) mmol/L BUN 37 H (9-20) mg/dL Creatinine 2.6 H (0.8-1.5) mg/dL Glucose 116 H (75-100) mg/dL Calcium 8.8 (8.4-10.2) mg/dL - Imaging and Cardiology EKG: image reviewed
--- NOTE | 2017-10-11 15:57 | Progress Note ---
Assessment and Plan - Patient Problems (1) Bilateral pneumonia Current Visit: Yes Status: Acute Qualifiers: Pneumonia type: due to unspecified organism Lung location: unspecified part of lung Qualified Code(s): J18.9 - Pneumonia, unspecified organism Plan to address problem: S/p antibiotics As per pulmonology and primary team (2) Acute renal failure (ARF) Current Visit: Yes Status: Acute Plan to address problem: Renal function reviewed, SCr level decreased to 2.6 today, yesterday's SCr level was 2.9 No acute indication for HD today Assess need for HD on daily basis On Lasix 40 mg orally once a day Ordered Lasix 40 mg IV x 1 dose Monitor for signs of renal recovery Renally dose medications Discussed with nurse about measuring all urine output and recording in chart for review Obtain daily weight Lyles Catheter: No Strict intake and output Intake= 620 ml Output= 400 ml (Net= 220 ml) Renal plan discussed with Dr Flores Continue supportive therapy (3) Hyponatremia Current Visit: Yes Status: Acute Plan to address problem: Labs reviewed, stable, serum sodium level was 137 today Maintain fluid restriction of 750 ml per day On Lasix 40 mg orally once daily (4) Systolic heart failure Current Visit: Yes Status: Acute Plan to address problem: Cardiology on board, EF 10-15%, will be fitting for lifevest, on lasix 40 mg orally once a day, follow up recs Lasix 40 mg IV x 1 dose (5) CVA (cerebral vascular accident) Current Visit: Yes Status: Acute Plan to address problem: Neurology was consulted, stroke in medial occipital and medial temporal lobe, [employer] left sided clot on MRA of head, follow up recs (6) Diabetes mellitus type 2, insulin dependent Current Visit: No Status: Acute Plan to address problem: On insulin As per primary team Subjective Date of service: 10/11/17 Principal diagnosis: Acute Hypoxemic Resp Failure; Bilateral Pulmonary Infiltrates; HFrEF Interval history: Patient reports having shortness of breath today, feels like he may have more fluid on him, currently has oxygen off, no acute distress. Patient states he is urinating. Patient advised to save urine for measurement. No family at bedside at time of my examination. Objective - Vital Signs Vital signs: Vital Signs - 12hr 10/11/17 10/11/17 10/11/17 06:03 08:00 08:22 Temperature 98.1 F 97.9 F Pulse Rate 99 H 101 H Respiratory 20 18 22 Rate Blood Pressure 117/87 115/84 O2 Sat by Pulse 93 95 Oximetry 10/11/17 10/11/17 10:00 11:47 Temperature Pulse Rate 100 H 100 H Respiratory Rate Blood Pressure 125/95 O2 Sat by Pulse 95 Oximetry - General Appearance General appearance: well-developed (no acute distress) EENT: ATNC Neck: no JVD Respiratory: Present: Other (Lung sounds decreased bilaterally, unlabored) Cardiology: regular, S1S2, other (ACCESS: Right IJ Vas Catheter) Gastrointestinal: normoactive bowel sounds, no tenderness Integumentary: warm and dry Neurologic: alert and oriented x3 Musculoskeletal: other (trace edema to both lower extremities) Psychiatric: mood/affect appropriate, cooperative - Lab 10/11/17 08:29 10/11/17 08:29 Most recent lab results Calcium 8.8 mg/dL (8.4-10.2) 10/11/17 08:29 Phosphorus 4.30 mg/dL (2.5-4.5) 10/11/17 08:29 Magnesium 1.70 mg/dL (1.7-2.3) 09/26/17 05:35 Urine Creatinine 45.5 mg/dL (0.1-20.0) H 10/08/17 Unknown
[2017-10-11] MEDS ORDERED: LASIX IV ONE (16:00)
--- NOTE | 2017-10-11 16:21 | Progress Note ---
Assessment and Plan Acute hypoxemic respiratory failure Bilateral infiltrates, pneumonia Sepsis Acute CVA, right visual field defect Hyponatremia Diabetes, poorly controlled Morbid obesity Systolic heart failure, EF 15% Cardiomyopathy, nonischemic -EF 10-15% on echocardiogram. -no significant obstructive CAD on [facility] this admissio Tobacco abuse disorder Acute Renal failure Hypertension Hyperlipidemia -Monitor off antibiotics -Continue bronchodilators, supplemental oxygen -Assess need for HD on daily basis -Cardioprotective measures -Life vest -Out patient sleep study -Smoking cessation counselling -Avoid Nephrotoxic agents -Renally dose medications -Obtain daily weights -Monitor intake and output -Monitor renal function closely Subjective Date of service: 10/11/17 Principal diagnosis: Acute Hypoxemic Resp Failure; Bilateral Pulmonary Infiltrates; HFrEF Interval history: Patient is seen today for: Acute Hypoxemic Resp Failure; Bilateral Pulmonary Infiltrates; HFrEF Seen and examined at bedside; 24hour events reviewed; nursing and respiratory care staff consulted; no adverse overnight events reported to me; resting in bed ; feels better; on 2L NC; denies acute chest pains; no cough no hemoptysis; No N/V/F/C Awaiting life vest for discharge planning, will need ongoing HD as an out patient Objective - Exam Narrative Exam: GEN APPEARANCE : Not in acute distress,obese HEENT: Normocephalic, Atraumatic NECK : supple, no JVD LUNGS: bilateral rales, no wheeze HEART: S1 and S2 regular, no murmurs, rubs or gallop, ABD: Soft, non tender, non distended, normal bowel sounds EXT:No edema, no clubbing, no cyanosis NEURO: Awake, alert,oriented x 3, right visual field defect Vital Signs - 12hr 10/11/17 10/11/17 10/11/17 06:03 08:00 08:22 Temperature 98.1 F 97.9 F Pulse Rate 99 H 101 H Respiratory 20 18 22 Rate Blood Pressure 117/87 115/84 O2 Sat by Pulse 93 95 Oximetry 10/11/17 10/11/17 10:00 11:47 Temperature Pulse Rate 100 H 100 H Respiratory Rate Blood Pressure 125/95 O2 Sat by Pulse 95 Oximetry Constitutional: no acute distress, alert Eyes: non-icteric ENT: oropharynx moist, other (No thyromegaly) Neck: supple, no lymphadenopathy, no JVD Effort: mildly labored Ascultation: Bilateral: diminished breath sounds, rales (bases) Percussion: Bilateral: not dull Cardiovascular: regular rate and rhythm, murmur noted, other (no rubs) Gastrointestinal: normoactive bowel sounds, soft, non-tender, non-distended, other (no palpable HSM) Integumentary: normal Extremities: no cyanosis, pulses normal, no ischemia or petechiae, edema Neurologic: normal mental status, non-focal exam, pupils equal and round, CN II- XII normal Psychiatric: mood appropriate, affect normal CBC and BMP: 10/11/17 08:29 10/11/17 08:29 ABG, PT/INR, D-dimer: ABG POC ABG pH 7.459 (7.35-7.45) H 09/23/17 15:04 POC ABG pCO2 34.8 (35-45) L 09/23/17 15:04 POC ABG pO2 54 (80-105) L 09/23/17 15:04 POC ABG HCO3 24.7 09/23/17 15:04 POC ABG Total CO2 26 09/23/17 15:04 POC ABG O2 Sat 89 09/23/17 15:04 PT/INR, D-dimer PT 15.7 Sec. (12.2-14.9) H 10/08/17 04:59 INR 1.19 (0.87-1.13) H 10/08/17 04:59 Abnormal lab findings: Abnormal Labs 09/22/17 09/22/17 09/22/17 21:30 21:31 21:31 WBC RBC Hgb Hct MCH RDW 15.3 H Lymph % (Auto) [place] % (Auto) 9.6 H Eos % (Auto) Lymph # [place] # 0.9 H Seg Neutrophils % 72.0 H Seg Neuts % (Manual) Monocytes % (Manual) Seg Neutrophils # PT INR POC ABG pH POC ABG pCO2 POC ABG pO2 Sodium Chloride Carbon Dioxide BUN Creatinine Glucose POC Glucose Calcium Total Creatine Kinase 371 H Troponin T 0.260 H* C-Reactive Protein NT-Pro-B Natriuret Pep 5093 H Albumin Triglycerides 226 H Cholesterol 235 H LDL Cholesterol Direct 164 H HDL Cholesterol 26 L Urine Creatinine Vancomycin Trough Miscellaneous Test 09/22/17 09/22/17 09/23/17 22:54 22:54 04:00 WBC RBC Hgb Hct MCH RDW Lymph % (Auto) [place] % (Auto) 11.9 H Eos % (Auto) Lymph # [place] # Seg Neutrophils % Seg Neuts % (Manual) Monocytes % (Manual) Seg Neutrophils # PT INR POC ABG pH POC ABG pCO2 POC ABG pO2 Sodium 129 L Chloride 91.6 L Carbon Dioxide BUN Creatinine 0.7 L Glucose 256 H POC Glucose Calcium 7.9 L Total Creatine Kinase 211 H Troponin T 0.344 H* D C-Reactive Protein NT-Pro-B Natriuret Pep Albumin Triglycerides Cholesterol LDL Cholesterol Direct HDL Cholesterol Urine Creatinine Vancomycin Trough Miscellaneous Test 09/23/17 09/23/17 09/23/17 04:00 04:10 09:09 WBC RBC Hgb Hct MCH RDW Lymph % (Auto) [place] % (Auto) Eos % (Auto) Lymph # [place] # Seg Neutrophils % Seg Neuts % (Manual) Monocytes % (Manual) Seg Neutrophils # PT INR POC ABG pH POC ABG pCO2 POC ABG pO2 Sodium 136 L D Chloride 95.3 L Carbon Dioxide BUN Creatinine Glucose 181 H POC Glucose 166 H Calcium 7.7 L Total Creatine Kinase Troponin T 0.287 H* C-Reactive Protein NT-Pro-B Natriuret Pep Albumin Triglycerides Cholesterol LDL Cholesterol Direct HDL Cholesterol Urine Creatinine Vancomycin Trough Miscellaneous Test 09/23/17 09/23/17 09/23/17 11:40 13:19 15:04 WBC RBC Hgb Hct MCH RDW Lymph % (Auto) [place] % (Auto) Eos % (Auto) Lymph # [place] # Seg Neutrophils % Seg Neuts % (Manual) Monocytes % (Manual) Seg Neutrophils # PT INR POC ABG pH 7.459 H POC ABG pCO2 34.8 L POC ABG pO2 54 L Sodium Chloride Carbon Dioxide BUN Creatinine Glucose POC Glucose 221 H 267 H Calcium Total Creatine Kinase Troponin T C-Reactive Protein NT-Pro-B Natriuret Pep Albumin Triglycerides Cholesterol LDL Cholesterol Direct HDL Cholesterol Urine Creatinine Vancomycin Trough Miscellaneous Test 09/23/17 09/23/17 09/24/17 15:57 22:07 04:40 WBC RBC Hgb Hct MCH RDW Lymph % (Auto) [place] % (Auto) 11.4 H Eos % (Auto) Lymph # [place] # Seg Neutrophils % Seg Neuts % (Manual) Monocytes % (Manual) Seg Neutrophils # PT INR POC ABG pH POC ABG pCO2 POC ABG pO2 Sodium Chloride Carbon Dioxide BUN Creatinine Glucose POC Glucose 281 H 166 H Calcium Total Creatine Kinase Troponin T C-Reactive Protein NT-Pro-B Natriuret Pep Albumin Triglycerides Cholesterol LDL Cholesterol Direct HDL Cholesterol Urine Creatinine Vancomycin Trough Miscellaneous Test 09/24/17 09/24/17 09/24/17 04:40 08:42 12:17 WBC RBC Hgb Hct MCH RDW Lymph % (Auto) [place] % (Auto) Eos % (Auto) Lymph # [place] # Seg Neutrophils % Seg Neuts % (Manual) Monocytes % (Manual) Seg Neutrophils # PT INR POC ABG pH POC ABG pCO2 POC ABG pO2 Sodium 133 L Chloride 95.6 L Carbon Dioxide BUN Creatinine 0.7 L Glucose 251 H POC Glucose 173 H 209 H Calcium 7.8 L Total Creatine Kinase Troponin T C-Reactive Protein NT-Pro-B Natriuret Pep Albumin Triglycerides Cholesterol LDL Cholesterol Direct HDL Cholesterol Urine Creatinine Vancomycin Trough Miscellaneous Test 09/24/17 09/24/17 09/25/17 16:13 21:21 12:44 WBC RBC Hgb Hct MCH RDW Lymph % (Auto) [place] % (Auto) Eos % (Auto) Lymph # [place] # Seg Neutrophils % Seg Neuts % (Manual) Monocytes % (Manual) Seg Neutrophils # PT INR POC ABG pH POC ABG pCO2 POC ABG pO2 Sodium Chloride Carbon Dioxide BUN Creatinine Glucose POC Glucose 248 H 152 H 185 H Calcium Total Creatine Kinase Troponin T C-Reactive Protein NT-Pro-B Natriuret Pep Albumin Triglycerides Cholesterol LDL Cholesterol Direct HDL Cholesterol Urine Creatinine Vancomycin Trough Miscellaneous Test 09/25/17 09/25/17 09/26/17 17:18 23:10 05:35 WBC 15.6 H RBC Hgb Hct MCH RDW Lymph % (Auto) [place] % (Auto) Eos % (Auto) Lymph # [place] # Seg Neutrophils % 78.5 H Seg Neuts % (Manual) Monocytes % (Manual) Seg Neutrophils # 12.2 H PT INR POC ABG pH POC ABG pCO2 POC ABG pO2 Sodium Chloride Carbon Dioxide BUN Creatinine Glucose POC Glucose 186 H 187 H Calcium Total Creatine Kinase Troponin T C-Reactive Protein NT-Pro-B Natriuret Pep Albumin Triglycerides Cholesterol LDL Cholesterol Direct HDL Cholesterol Urine Creatinine Vancomycin Trough Miscellaneous Test 09/26/17 09/26/17 09/26/17 05:35 09:02 12:20 WBC RBC Hgb Hct MCH RDW Lymph % (Auto) [place] % (Auto) Eos % (Auto) Lymph # [place] # Seg Neutrophils % Seg Neuts % (Manual) Monocytes % (Manual) Seg Neutrophils # PT INR POC ABG pH POC ABG pCO2 POC ABG pO2 Sodium 133 L Chloride 95.2 L Carbon Dioxide BUN Creatinine 0.7 L Glucose 161 H POC Glucose 131 H 199 H Calcium 8.3 L Total Creatine Kinase Troponin T C-Reactive Protein NT-Pro-B Natriuret Pep Albumin Triglycerides Cholesterol LDL Cholesterol Direct HDL Cholesterol Urine Creatinine Vancomycin Trough Miscellaneous Test 09/26/17 09/26/17 09/27/17 16:39 21:45 07:24 WBC RBC Hgb Hct MCH RDW Lymph % (Auto) [place] % (Auto) Eos % (Auto) Lymph # [place] # Seg Neutrophils % Seg Neuts % (Manual) Monocytes % (Manual) Seg Neutrophils # PT INR POC ABG pH POC ABG pCO2 POC ABG pO2 Sodium Chloride Carbon Dioxide BUN Creatinine Glucose POC Glucose 209 H 194 H 210 H Calcium Total Creatine Kinase Troponin T C-Reactive Protein NT-Pro-B Natriuret Pep Albumin Triglycerides Cholesterol LDL Cholesterol Direct HDL Cholesterol Urine Creatinine Vancomycin Trough Miscellaneous Test 09/27/17 09/27/17 09/27/17 09:20 09:20 11:50 WBC RBC Hgb 11.0 L Hct MCH RDW Lymph % (Auto) [place] % (Auto) Eos % (Auto) Lymph # [place] # Seg Neutrophils % 77.2 H Seg Neuts % (Manual) Monocytes % (Manual) Seg Neutrophils # PT INR POC ABG pH POC ABG pCO2 POC ABG pO2 Sodium 134 L Chloride 96.1 L Carbon Dioxide BUN 21 H Creatinine Glucose 139 H POC Glucose Calcium 8.0 L Total Creatine Kinase Troponin T C-Reactive Protein NT-Pro-B Natriuret Pep Albumin Triglycerides Cholesterol LDL Cholesterol Direct HDL Cholesterol Urine Creatinine Vancomycin Trough 46.8 H Miscellaneous Test 09/27/17 09/27/17 09/27/17 11:50 12:18 17:00 WBC RBC Hgb 10.7 L Hct 32.1 L D MCH RDW Lymph % (Auto) [place] % (Auto) Eos % (Auto) Lymph # [place] # Seg Neutrophils % 80.6 H Seg Neuts % (Manual) Monocytes % (Manual) Seg Neutrophils # PT INR POC ABG pH POC ABG pCO2 POC ABG pO2 Sodium Chloride Carbon Dioxide BUN Creatinine Glucose POC Glucose 274 H 169 H Calcium Total Creatine Kinase Troponin T C-Reactive Protein NT-Pro-B Natriuret Pep Albumin Triglycerides Cholesterol LDL Cholesterol Direct HDL Cholesterol Urine Creatinine Vancomycin Trough Miscellaneous Test 09/27/17 09/27/17 09/27/17 21:18 21:19 23:28 WBC RBC Hgb Hct MCH RDW Lymph % (Auto) [place] % (Auto) Eos % (Auto) Lymph # [place] # Seg Neutrophils % Seg Neuts % (Manual) Monocytes % (Manual) Seg Neutrophils # PT INR POC ABG pH POC ABG pCO2 POC ABG pO2 Sodium Chloride Carbon Dioxide BUN Creatinine Glucose POC Glucose 251 H Calcium Total Creatine Kinase Troponin T C-Reactive Protein 34.90 H NT-Pro-B Natriuret Pep Albumin Triglycerides Cholesterol LDL Cholesterol Direct HDL Cholesterol Urine Creatinine Vancomycin Trough Miscellaneous Test Flexitest 1 H 09/27/17 09/28/17 09/28/17 23:49 07:00 07:00 WBC RBC 3.44 L Hgb 9.9 L Hct 29.6 L MCH RDW Lymph % (Auto) [place] % (Auto) Eos % (Auto) Lymph # 1.0 L [place] # Seg Neutrophils % 76.2 H Seg Neuts % (Manual) Monocytes % (Manual) Seg Neutrophils # PT INR POC ABG pH POC ABG pCO2 POC ABG pO2 Sodium 128 L Chloride 92.1 L Carbon Dioxide 20 L BUN 40 H Creatinine 3.1 H D Glucose 199 H POC Glucose 233 H Calcium 7.5 L Total Creatine Kinase Troponin T C-Reactive Protein NT-Pro-B Natriuret Pep Albumin Triglycerides Cholesterol LDL Cholesterol Direct HDL Cholesterol Urine Creatinine Vancomycin Trough Miscellaneous Test 09/28/17 09/28/17 09/28/17 07:00 08:03 13:31 WBC RBC Hgb Hct MCH RDW Lymph % (Auto) [place] % (Auto) Eos % (Auto) Lymph # [place] # Seg Neutrophils % Seg Neuts % (Manual) Monocytes % (Manual) Seg Neutrophils # PT INR POC ABG pH POC ABG pCO2 POC ABG pO2 Sodium Chloride Carbon Dioxide BUN Creatinine Glucose POC Glucose 165 H 237 H Calcium Total Creatine Kinase Troponin T C-Reactive Protein NT-Pro-B Natriuret Pep Albumin Triglycerides Cholesterol LDL Cholesterol Direct HDL Cholesterol Urine Creatinine Vancomycin Trough 36.3 H Miscellaneous Test 09/28/17 09/28/17 09/29/17 16:20 22:12 05:20 WBC RBC Hgb 11.4 L Hct 34.5 L MCH RDW Lymph % (Auto) 10.5 L [place] % (Auto) 9.1 H Eos % (Auto) Lymph # 0.5 L [place] # Seg Neutrophils % 75.8 H Seg Neuts % (Manual) Monocytes % (Manual) Seg Neutrophils # PT INR POC ABG pH POC ABG pCO2 POC ABG pO2 Sodium Chloride Carbon Dioxide BUN Creatinine Glucose POC Glucose 323 H 164 H Calcium Total Creatine Kinase Troponin T C-Reactive Protein NT-Pro-B Natriuret Pep Albumin Triglycerides Cholesterol LDL Cholesterol Direct HDL Cholesterol Urine Creatinine Vancomycin Trough Miscellaneous Test 09/29/17 09/29/17 09/29/17 05:20 07:53 16:21 WBC RBC Hgb Hct MCH RDW Lymph % (Auto) [place] % (Auto) Eos % (Auto) Lymph # [place] # Seg Neutrophils % Seg Neuts % (Manual) Monocytes % (Manual) Seg Neutrophils # PT INR POC ABG pH POC ABG pCO2 POC ABG pO2 Sodium 128 L Chloride 91.6 L Carbon Dioxide 21 L BUN 51 H Creatinine 3.8 H Glucose 161 H POC Glucose 128 H 141 H Calcium Total Creatine Kinase Troponin T C-Reactive Protein NT-Pro-B Natriuret Pep Albumin Triglycerides Cholesterol LDL Cholesterol Direct HDL Cholesterol Urine Creatinine Vancomycin Trough Miscellaneous Test 09/29/17 09/30/17 09/30/17 22:17 05:21 05:21 WBC RBC Hgb 10.3 L Hct 32.1 L MCH 27 L RDW Lymph % (Auto) 11.6 L [place] % (Auto) 9.3 H Eos % (Auto) 4.9 H Lymph # 0.8 L [place] # Seg Neutrophils % 73.6 H Seg Neuts % (Manual) Monocytes % (Manual) Seg Neutrophils # PT INR POC ABG pH POC ABG pCO2 POC ABG pO2 Sodium 127 L Chloride 90.9 L Carbon Dioxide BUN 52 H Creatinine 4.5 H Glucose 187 H POC Glucose 158 H Calcium 7.9 L Total Creatine Kinase Troponin T C-Reactive Protein NT-Pro-B Natriuret Pep Albumin Triglycerides Cholesterol LDL Cholesterol Direct HDL Cholesterol Urine Creatinine Vancomycin Trough Miscellaneous Test 09/30/17 09/30/17 09/30/17 07:47 11:55 21:44 WBC RBC Hgb Hct MCH RDW Lymph % (Auto) [place] % (Auto) Eos % (Auto) Lymph # [place] # Seg Neutrophils % Seg Neuts % (Manual) Monocytes % (Manual) Seg Neutrophils # PT INR POC ABG pH POC ABG pCO2 POC ABG pO2 Sodium Chloride Carbon Dioxide BUN Creatinine Glucose POC Glucose 137 H 184 H 141 H Calcium Total Creatine Kinase Troponin T C-Reactive Protein NT-Pro-B Natriuret Pep Albumin Triglycerides Cholesterol LDL Cholesterol Direct HDL Cholesterol Urine Creatinine Vancomycin Trough Miscellaneous Test 10/01/17 10/01/17 10/01/17 06:03 06:03 16:37 WBC RBC Hgb 11.3 L Hct 33.6 L MCH RDW Lymph % (Auto) 11.2 L [place] % (Auto) 10.2 H Eos % (Auto) Lymph # 1.1 L [place] # 1.0 H Seg Neutrophils % 74.5 H Seg Neuts % (Manual) Monocytes % (Manual) Seg Neutrophils # PT INR POC ABG pH POC ABG pCO2 POC ABG pO2 Sodium 130 L Chloride 92.3 L Carbon Dioxide BUN 53 H Creatinine 4.5 H Glucose POC Glucose 125 H Calcium 8.0 L Total Creatine Kinase Troponin T C-Reactive Protein NT-Pro-B Natriuret Pep Albumin Triglycerides Cholesterol LDL Cholesterol Direct HDL Cholesterol Urine Creatinine Vancomycin Trough Miscellaneous Test 10/01/17 10/01/17 10/02/17 20:41 21:47 06:21 WBC RBC Hgb 11.5 L Hct 34.5 L MCH RDW 15.3 H Lymph % (Auto) [place] % (Auto) 12.4 H Eos % (Auto) Lymph # 0.9 L [place] # Seg Neutrophils % 70.6 H Seg Neuts % (Manual) Monocytes % (Manual) Seg Neutrophils # PT INR POC ABG pH POC ABG pCO2 POC ABG pO2 Sodium Chloride Carbon Dioxide BUN Creatinine Glucose POC Glucose 115 H Calcium Total Creatine Kinase Troponin T C-Reactive Protein 7.60 H NT-Pro-B Natriuret Pep Albumin Triglycerides Cholesterol LDL Cholesterol Direct HDL Cholesterol Urine Creatinine Vancomycin Trough Miscellaneous Test 10/02/17 10/02/17 10/02/17 06:21 07:47 21:56 WBC RBC Hgb Hct MCH RDW Lymph % (Auto) [place] % (Auto) Eos % (Auto) Lymph # [place] # Seg Neutrophils % Seg Neuts % (Manual) Monocytes % (Manual) Seg Neutrophils # PT INR POC ABG pH POC ABG pCO2 POC ABG pO2 Sodium 133 L Chloride 92.7 L Carbon Dioxide BUN 51 H Creatinine 4.7 H Glucose 113 H POC Glucose 118 H 154 H Calcium 8.0 L Total Creatine Kinase Troponin T C-Reactive Protein NT-Pro-B Natriuret Pep Albumin Triglycerides Cholesterol LDL Cholesterol Direct HDL Cholesterol Urine Creatinine Vancomycin Trough Miscellaneous Test 10/03/17 10/03/17 10/03/17 06:13 06:13 16:50 WBC RBC Hgb 10.7 L Hct 31.9 L MCH RDW 15.6 H Lymph % (Auto) [place] % (Auto) Eos % (Auto) Lymph # [place] # Seg Neutrophils % Seg Neuts % (Manual) Monocytes % (Manual) Seg Neutrophils # PT INR POC ABG pH POC ABG pCO2 POC ABG pO2 Sodium 134 L Chloride 95.3 L Carbon Dioxide BUN 32 H Creatinine 3.7 H Glucose POC Glucose 126 H Calcium 7.8 L Total Creatine Kinase Troponin T C-Reactive Protein NT-Pro-B Natriuret Pep Albumin Triglycerides Cholesterol LDL Cholesterol Direct HDL Cholesterol Urine Creatinine Vancomycin Trough Miscellaneous Test 10/04/17 10/04/17 10/04/17 05:49 05:49 12:01 WBC RBC Hgb 10.8 L Hct 32.3 L MCH RDW 15.6 H Lymph % (Auto) [place] % (Auto) Eos % (Auto) Lymph # [place] # Seg Neutrophils % Seg Neuts % (Manual) 72.0 H Monocytes % (Manual) 9.0 H Seg Neutrophils # PT INR POC ABG pH POC ABG pCO2 POC ABG pO2 Sodium 133 L Chloride 93.7 L Carbon Dioxide BUN 23 H Creatinine 3.2 H Glucose POC Glucose 140 H Calcium 7.8 L Total Creatine Kinase Troponin T C-Reactive Protein NT-Pro-B Natriuret Pep Albumin Triglycerides Cholesterol LDL Cholesterol Direct HDL Cholesterol Urine Creatinine Vancomycin Trough Miscellaneous Test 10/04/17 10/04/17 10/05/17 17:35 20:44 05:34 WBC RBC 5.17 H Hgb Hct MCH 27 L RDW 15.5 H Lymph % (Auto) [place] % (Auto) 13.6 H Eos % (Auto) Lymph # [place] # 0.9 H Seg Neutrophils % Seg Neuts % (Manual) Monocytes % (Manual) Seg Neutrophils # PT INR POC ABG pH POC ABG pCO2 POC ABG pO2 Sodium Chloride Carbon Dioxide BUN Creatinine Glucose POC Glucose 143 H 135 H Calcium Total Creatine Kinase Troponin T C-Reactive Protein NT-Pro-B Natriuret Pep Albumin Triglycerides Cholesterol LDL Cholesterol Direct HDL Cholesterol Urine Creatinine Vancomycin Trough Miscellaneous Test 10/05/17 10/05/17 10/05/17 05:34 12:34 21:29 WBC RBC Hgb Hct MCH RDW Lymph % (Auto) [place] % (Auto) Eos % (Auto) Lymph # [place] # Seg Neutrophils % Seg Neuts % (Manual) Monocytes % (Manual) Seg Neutrophils # PT INR POC ABG pH POC ABG pCO2 POC ABG pO2 Sodium 132 L Chloride 92.7 L Carbon Dioxide BUN 36 H Creatinine 3.7 H Glucose POC Glucose 161 H 191 H Calcium 7.8 L Total Creatine Kinase Troponin T C-Reactive Protein NT-Pro-B Natriuret Pep Albumin Triglycerides Cholesterol LDL Cholesterol Direct HDL Cholesterol Urine Creatinine Vancomycin Trough Miscellaneous Test 10/06/17 10/06/17 10/06/17 05:50 05:50 13:14 WBC RBC Hgb 10.6 L D Hct 32.4 L D MCH RDW 15.5 H Lymph % (Auto) [place] % (Auto) 15.6 H Eos % (Auto) Lymph # [place] # 1.2 H Seg Neutrophils % Seg Neuts % (Manual) Monocytes % (Manual) Seg Neutrophils # PT INR POC ABG pH POC ABG pCO2 POC ABG pO2 Sodium 131 L Chloride 91.9 L Carbon Dioxide BUN 27 H Creatinine 3.0 H Glucose 140 H POC Glucose 162 H Calcium 7.9 L Total Creatine Kinase Troponin T C-Reactive Protein NT-Pro-B Natriuret Pep Albumin Triglycerides Cholesterol LDL Cholesterol Direct HDL Cholesterol Urine Creatinine Vancomycin Trough Miscellaneous Test 10/06/17 10/06/17 10/07/17 15:54 21:48 05:32 WBC RBC Hgb 11.3 L Hct 34.0 L MCH RDW 15.3 H Lymph % (Auto) [place] % (Auto) 13.4 H Eos % (Auto) Lymph # [place] # 1.1 H Seg Neutrophils % Seg Neuts % (Manual) Monocytes % (Manual) Seg Neutrophils # PT INR POC ABG pH POC ABG pCO2 POC ABG pO2 Sodium Chloride Carbon Dioxide BUN Creatinine Glucose POC Glucose 194 H 190 H Calcium Total Creatine Kinase Troponin T C-Reactive Protein NT-Pro-B Natriuret Pep Albumin Triglycerides Cholesterol LDL Cholesterol Direct HDL Cholesterol Urine Creatinine Vancomycin Trough Miscellaneous Test 10/07/17 10/07/17 10/07/17 05:32 05:32 08:43 WBC RBC Hgb Hct MCH RDW Lymph % (Auto) [place] % (Auto) Eos % (Auto) Lymph # [place] # Seg Neutrophils % Seg Neuts % (Manual) Monocytes % (Manual) Seg Neutrophils # PT INR POC ABG pH POC ABG pCO2 POC ABG pO2 Sodium 134 L Chloride 95.7 L Carbon Dioxide BUN 35 H Creatinine 3.3 H Glucose 101 H POC Glucose 131 H Calcium 8.1 L Total Creatine Kinase Troponin T C-Reactive Protein NT-Pro-B Natriuret Pep Albumin 2.8 L Triglycerides Cholesterol LDL Cholesterol Direct HDL Cholesterol Urine Creatinine Vancomycin Trough Miscellaneous Test 10/07/17 10/07/17 10/07/17 12:41 21:34 Unknown WBC RBC Hgb Hct MCH RDW Lymph % (Auto) [place] % (Auto) Eos % (Auto) Lymph # [place] # Seg Neutrophils % Seg Neuts % (Manual) Monocytes % (Manual) Seg Neutrophils # PT INR POC ABG pH POC ABG pCO2 POC ABG pO2 Sodium Chloride Carbon Dioxide BUN Creatinine Glucose POC Glucose 165 H 167 H Calcium Total Creatine Kinase Troponin T C-Reactive Protein NT-Pro-B Natriuret Pep Albumin Triglycerides Cholesterol LDL Cholesterol Direct HDL Cholesterol Urine Creatinine 45.7 H Vancomycin Trough Miscellaneous Test 10/08/17 10/08/17 10/08/17 04:59 04:59 04:59 WBC 11.2 H RBC Hgb 10.7 L Hct 32.5 L MCH RDW 15.5 H Lymph % (Auto) 13.2 L [place] % (Auto) 12.7 H Eos % (Auto) Lymph # [place] # 1.4 H Seg Neutrophils % 72.1 H Seg Neuts % (Manual) Monocytes % (Manual) Seg Neutrophils # 8.1 H PT 15.7 H INR 1.19 H POC ABG pH POC ABG pCO2 POC ABG pO2 Sodium 134 L Chloride 96.3 L Carbon Dioxide BUN 39 H Creatinine 3.4 H Glucose 105 H POC Glucose Calcium 8.3 L Total Creatine Kinase Troponin T C-Reactive Protein NT-Pro-B Natriuret Pep Albumin Triglycerides Cholesterol LDL Cholesterol Direct HDL Cholesterol Urine Creatinine Vancomycin Trough Miscellaneous Test 10/08/17 10/08/17 10/08/17 16:31 22:17 Unknown WBC RBC Hgb Hct MCH RDW Lymph % (Auto) [place] % (Auto) Eos % (Auto) Lymph # [place] # Seg Neutrophils % Seg Neuts % (Manual) Monocytes % (Manual) Seg Neutrophils # PT INR POC ABG pH POC ABG pCO2 POC ABG pO2 Sodium Chloride Carbon Dioxide BUN Creatinine Glucose POC Glucose 276 H 132 H Calcium Total Creatine Kinase Troponin T C-Reactive Protein NT-Pro-B Natriuret Pep Albumin Triglycerides Cholesterol LDL Cholesterol Direct HDL Cholesterol Urine Creatinine 45.5 H Vancomycin Trough Miscellaneous Test 10/09/17 10/09/17 10/09/17 05:49 05:49 08:47 WBC RBC Hgb 10.5 L Hct 31.8 L MCH RDW 15.8 H Lymph % (Auto) 8.5 L [place] % (Auto) 13.1 H Eos % (Auto) Lymph # 0.9 L [place] # 1.4 H Seg Neutrophils % 76.5 H Seg Neuts % (Manual) Monocytes % (Manual) Seg Neutrophils # 8.1 H PT INR POC ABG pH POC ABG pCO2 POC ABG pO2 Sodium 136 L Chloride Carbon Dioxide BUN 39 H Creatinine 3.1 H Glucose 139 H POC Glucose 121 H Calcium Total Creatine Kinase Troponin T C-Reactive Protein NT-Pro-B Natriuret Pep Albumin Triglycerides Cholesterol LDL Cholesterol Direct HDL Cholesterol Urine Creatinine Vancomycin Trough Miscellaneous Test 10/09/17 10/09/17 10/09/17 12:43 16:54 21:25 WBC RBC Hgb Hct MCH RDW Lymph % (Auto) [place] % (Auto) Eos % (Auto) Lymph # [place] # Seg Neutrophils % Seg Neuts % (Manual) Monocytes % (Manual) Seg Neutrophils # PT INR POC ABG pH POC ABG pCO2 POC ABG pO2 Sodium Chloride Carbon Dioxide BUN Creatinine Glucose POC Glucose 216 H 145 H 195 H Calcium Total Creatine Kinase Troponin T C-Reactive Protein NT-Pro-B Natriuret Pep Albumin Triglycerides Cholesterol LDL Cholesterol Direct HDL Cholesterol Urine Creatinine Vancomycin Trough Miscellaneous Test 10/10/17 10/10/17 10/10/17 08:20 08:35 08:35 WBC 12.9 H RBC Hgb 10.7 L Hct 33.3 L MCH 27 L RDW 15.4 H Lymph % (Auto) 10.3 L [place] % (Auto) 10.5 H Eos % (Auto) Lymph # [place] # 1.4 H Seg Neutrophils % 77.8 H Seg Neuts % (Manual) Monocytes % (Manual) Seg Neutrophils # 10.1 H PT INR POC ABG pH POC ABG pCO2 POC ABG pO2 Sodium Chloride 94.9 L Carbon Dioxide BUN 40 H Creatinine 2.9 H Glucose 119 H POC Glucose 126 H Calcium Total Creatine Kinase Troponin T C-Reactive Protein NT-Pro-B Natriuret Pep Albumin Triglycerides Cholesterol LDL Cholesterol Direct HDL Cholesterol Urine Creatinine Vancomycin Trough Miscellaneous Test 10/10/17 10/10/17 10/10/17 12:06 16:31 22:06 WBC RBC Hgb Hct MCH RDW Lymph % (Auto) [place] % (Auto) Eos % (Auto) Lymph # [place] # Seg Neutrophils % Seg Neuts % (Manual) Monocytes % (Manual) Seg Neutrophils # PT INR POC ABG pH POC ABG pCO2 POC ABG pO2 Sodium Chloride Carbon Dioxide BUN Creatinine Glucose POC Glucose 151 H 121 H 173 H Calcium Total Creatine Kinase Troponin T C-Reactive Protein NT-Pro-B Natriuret Pep Albumin Triglycerides Cholesterol LDL Cholesterol Direct HDL Cholesterol Urine Creatinine Vancomycin Trough Miscellaneous Test 10/11/17 10/11/17 10/11/17 08:29 08:29 11:52 WBC RBC Hgb 10.8 L Hct 33.4 L MCH 27 L RDW 15.6 H Lymph % (Auto) [place] % (Auto) 11.1 H Eos % (Auto) Lymph # [place] # 1.1 H Seg Neutrophils % 71.7 H Seg Neuts % (Manual) Monocytes % (Manual) Seg Neutrophils # PT INR POC ABG pH POC ABG pCO2 POC ABG pO2 Sodium Chloride Carbon Dioxide BUN 37 H Creatinine 2.6 H Glucose 116 H POC Glucose 107 H Calcium Total Creatine Kinase Troponin T C-Reactive Protein NT-Pro-B Natriuret Pep Albumin Triglycerides Cholesterol LDL Cholesterol Direct HDL Cholesterol Urine Creatinine Vancomycin Trough Miscellaneous Test
[2017-10-11] MEDS: PRAVACHOL PO SCH (22:52)
[2017-10-11] MEDS: LEVEMIR SUB-Q SCH (22:54)
[2017-10-11] MEDS: AMBIEN PO PRN (22:58)
[2017-10-12] MEDS: APRESOLINE PO SCH ×3 (05:19→22:19)
[2017-10-12] MEDS: LOPRESSOR PO SCH ×5 (05:19→22:21)
[2017-10-12 06:12] LABS: Basophils # (Auto) 0.1 K/mm3 (0.0-0.1); Basophils % (Auto) 0.8 % (0.0-1.8); Eosinophils # (Auto) 0.1 K/mm3 (0.0-0.4); Hematocrit 33.8 % (35.5-45.6); Hemoglobin 11.1 gm/dl (11.8-15.2); Lymphocytes # (Auto) 1.3 K/mm3 (1.2-5.4); Lymphocytes % (Auto) 11.8 % (13.4-35.0); Mean Corpuscular HGB Conc 33 % (32-34); Mean Corpuscular Hemoglobin 28 pg (28-32); Mean Corpuscular Volume 85 fl (84-94); Monocytes # (Auto) 1.1 K/mm3 (0.0-0.8); Monocytes % (Auto) 9.9 % (0.0-7.3); Platelet Count 402 K/mm3 (140-440); Red Blood Count 3.96 M/mm3 (3.65-5.03); Red Cell Distribution Width 16.1 % (13.2-15.2)
[2017-10-12 06:31] LABS: Calcium 8.5 mg/dL (8.4-10.2)
--- NOTE | 2017-10-12 10:37 | Progress Note ---
Assessment and Plan - Patient Problems (1) Acute renal failure (ARF) Current Visit: Yes Status: Acute Plan to address problem: Renal function reviewed. Serum creatinine 2.3 with a GFR of 38 ml/min UOP recorded noted to be 2250 ml If renal function continues to improve or remain stable by tomorrow, then will d/c vasc cath Avoid Nephrotoxic agents Renally dose medications Obtain daily weights Monitor intake and output Monitor renal function closely (2) Bilateral pneumonia Current Visit: Yes Status: Acute Qualifiers: Pneumonia type: due to unspecified organism Lung location: unspecified part of lung Qualified Code(s): J18.9 - Pneumonia, unspecified organism Plan to address problem: S/P IV Levaquin and Zyvox (3) Systolic heart failure Current Visit: Yes Status: Acute Plan to address problem: S/P Milronone drip as per Cardiology On Lasix 40 mg po daily Awaiting life vest given severe non ischemic cardiomyopathy and multiple episodes of NSVT per Cardiology (4) Diabetes mellitus type 2, insulin dependent Current Visit: No Status: Acute Plan to address problem: Insulin as per Primary team (5) Hyponatremia Current Visit: Yes Status: Acute Plan to address problem: Fluid restriction of 750 ml per No salt tablets due to CHF (6) Hypertension Current Visit: Yes Status: Acute Plan to address problem: Blood pressures are stable. Subjective Date of service: 10/12/17 Principal diagnosis: Acute Hypoxemic Resp Failure; Bilateral Pulmonary Infiltrates; HFrEF Interval history: Patient seen sitting up in bed using laptop at bedside. Discussed renal plan of care with patient. Objective - Vital Signs Vital signs: Vital Signs - 12hr 10/11/17 10/12/17 10/12/17 22:52 00:00 00:04 Temperature Pulse Rate 110 H 107 H 67 Respiratory Rate Blood Pressure 117/84 104/71 110/70 Blood Pressure [Left] O2 Sat by Pulse 91 95 Oximetry 10/12/17 10/12/17 10/12/17 00:38 04:19 05:19 Temperature 98.7 F 99.2 F Pulse Rate 108 H 100 H Respiratory 20 17 Rate Blood Pressure 113/82 113/88 Blood Pressure 104/71 [Left] O2 Sat by Pulse 95 Oximetry 10/12/17 10/12/17 08:47 09:40 Temperature 98.3 F Pulse Rate 76 Respiratory 18 20 Rate Blood Pressure Blood Pressure 112/79 [Left] O2 Sat by Pulse 92 Oximetry - General Appearance General appearance: well-developed, well-nourished, appears stated age EENT: ATNC, PERRL, hearing intact, vision intact Neck: no JVD, supple Respiratory: Present: Decreased Breath Sounds Cardiology: regular, S1S2 Gastrointestinal: normoactive bowel sounds Integumentary: warm and dry Neurologic: alert and oriented x3 Musculoskeletal: other (No edema) - Lab 10/12/17 05:35 10/12/17 05:35 Most recent lab results Calcium 8.5 mg/dL (8.4-10.2) 10/12/17 05:35 Phosphorus 4.10 mg/dL (2.5-4.5) 10/12/17 05:35 Magnesium 1.70 mg/dL (1.7-2.3) 09/26/17 05:35 Urine Creatinine 45.5 mg/dL (0.1-20.0) H 10/08/17 Unknown
--- NOTE | 2017-10-12 10:52 | Progress Note ---
Assessment and Plan Acute CVA Presumed cardio-embolic given underlying severe cardiomyopathy Plan is to start oral anticoagulation in 2-3 weeks per neurology. Pneumonia Chronic systolic heart failure Acute renal failure -improved s/p temporary dialysis Cardiomyopathy, nonischemic EF 10-15% on echocardiogram. no significant obstructive CAD on [facility] this admission. Diabetes Hypertension Hyperlipidemia Non Sustained Ventricular Tachycardia Multiple episodes noted on telemetry Recommend: Lifevest placement before discharge given severe non ischemic cardiomyopathy and multiple episodes of NSVT. Subjective Date of service: 10/12/17 Principal diagnosis: Acute Hypoxemic Resp Failure; Bilateral Pulmonary Infiltrates; HFrEF Interval history: No new complaints. Awaits lifevest placement. Objective Vital Signs Temp Pulse Resp BP BP Pulse Ox 10/12/17 09:40 20 10/12/17 08:47 98.3 F 76 18 112/79 92 10/12/17 05:19 100 H 113/88 10/12/17 04:19 99.2 F 17 113/82 10/12/17 00:38 98.7 F 108 H 20 104/71 95 10/12/17 00:04 67 110/70 95 10/12/17 00:00 107 H 104/71 91 10/11/17 22:52 110 H 117/84 10/11/17 22:00 94 10/11/17 19:54 99 F 104 H 18 117/84 96 10/11/17 19:21 104 H 117/84 96 10/11/17 19:00 102 H 10/11/17 16:26 98.4 F 111 H 18 120/88 96 10/11/17 11:47 100 H 125/95 95 - Physical Examination General: No Apparent Distress HEENT: Positive: PERRL Cardiac: Positive: Reg Rate and Rhythm Neuro: Positive: Grossly Intact Abdomen: Positive: Soft, Active Bowel Sounds Skin: Positive: Clear Extremities: Present: edema (trace LE edema) - Labs and Meds CBC 10/12/17 Range/Units 05:35 WBC 11.1 H (4.5-11.0) K/mm3 RBC 3.96 (3.65-5.03) M/mm3 Hgb 11.1 L (11.8-15.2) gm/dl Hct 33.8 L (35.5-45.6) % Plt Count 402 (140-440) K/mm3 Lymph # 1.3 (1.2-5.4) K/mm3 [place] # 1.1 H (0.0-0.8) K/mm3 Eos # 0.1 (0.0-0.4) K/mm3 Baso # 0.1 (0.0-0.1) K/mm3 Comprehensive Metabolic Panel 10/12/17 Range/Units 05:35 Sodium 137 (137-145) mmol/L Potassium 4.2 (3.6-5.0) mmol/L Chloride 95.7 L (98-107) mmol/L Carbon Dioxide 26 (22-30) mmol/L BUN 34 H (9-20) mg/dL Creatinine 2.3 H (0.8-1.5) mg/dL Glucose 107 H (75-100) mg/dL Calcium 8.5 (8.4-10.2) mg/dL - Imaging and Cardiology EKG: image reviewed
[2017-10-12] MEDS: LASIX PO SCH ×2 (10:55→16:01)
[2017-10-12] MEDS: LOVENOX SUB-Q SCH ×2 (10:55→16:01)
[2017-10-12] MEDS: PROTONIX PO SCH ×2 (10:55→16:02)
[2017-10-12] MEDS: NOVOLOG SUB-Q SCH ×4 (10:55→22:37)
[2017-10-12] MEDS: BABY ASPIRIN PO SCH ×2 (10:55→16:01)
--- NOTE | 2017-10-12 13:08 | Progress Note ---
Assessment and Plan Assessment and plan: Acute hypoxic respiratory failure due to bilateral pneumonnia Acute Renal failure -Patient was receiving hemodialysis . Creatinine improving, 2.4 today -Assess need for HD on daily basis as per Nephrology -Avoid Nephrotoxic agents -Renally dose medications -Obtain daily weights -Monitor intake and output -Monitor renal function closely -Renal ultrasound showed no hydronephrosis -Nephrology following -If renal function stable tomorrow, may dc Vasc cath and dc home Sepsis -Etiology secondary to pneumonia. -follow up Legionella urine antigen, Streptococcus pneumoniae urine antigen -Blood cultures thus far negative. -continue abx per ID Patient refused MAYKEL Bilateral pneumonia - On IV antibiotics , Levaquin and Zyvox - Pulmonary following Cardiomyopathy - EF of 10-15%, systolic dysfunction - continue with CHF medications -Patient previously on milrinone drip per cardiology - Cardiology following NSVT -Patient had runs of V. tach -Clinical Academic Allergist recommends life vest prior to dc. -Life vest ordered, may be fitted today or tomorrow Acute on chronic systolic heart failure. -shortness of breath improved. On daily Lasix Hyponatremia -Fluid restriction of 750ml per day -Follow BMP DM with hyperglycemia - SSI and basal insulin Acute ischemic stroke left occipital lobe. On Aspirin Neurology following Right homonymous visual field defect -Neuro following. -Ophthalmology outpatient follow-up DVT prophylaxis - On lovenox Medical non-compliance. He has been refusing medications. lasix, Lovenox. I discussed with him importance of medications and compliance. Disposition. -Continue inpatient management. [phone] , [facility] number to arrange for follow-up at the time of discharge. History Interval history: Right visual field defect No chest pain, Shortness of breath Life vest not fitted yet Hospitalist Physical - Physical exam Narrative exam: GEN APPEARANCE : Not in acute distress,obese HEENT: Normocephalic, Atraumatic NECK : supple, no JVD LUNGS: bilateral rales, no wheeze HEART: S1 and S2 regular, no murmurs, rubs or gallop, ABD: Soft, non tender, non distended, normal bowel sounds EXT:No edema, no clubbing, no cyanosis NEURO: Awake, alert,oriented x 3, right visual field defect - Constitutional Vitals: Temp Pulse Resp BP Pulse Ox 98.3 F 76 20 112/79 92 10/12/17 08:47 10/12/17 08:47 10/12/17 09:40 10/12/17 10:55 10/12/17 08:47 General appearance: Present: no acute distress Results - Labs CBC & Chem 7: 10/13/17 06:20 10/13/17 06:20 Labs: Laboratory Last Values WBC 11.1 K/mm3 (4.5-11.0) H 10/12/17 05:35 RBC 3.96 M/mm3 (3.65-5.03) 10/12/17 05:35 Hgb 11.1 gm/dl (11.8-15.2) L 10/12/17 05:35 Hct 33.8 % (35.5-45.6) L 10/12/17 05:35 MCV 85 fl (84-94) 10/12/17 05:35 MCH 28 pg (28-32) 10/12/17 05:35 MCHC 33 % (32-34) 10/12/17 05:35 RDW 16.1 % (13.2-15.2) H 10/12/17 05:35 Plt Count 402 K/mm3 (140-440) 10/12/17 05:35 Lymph % (Auto) 11.8 % (13.4-35.0) L 10/12/17 05:35 [place] % (Auto) 9.9 % (0.0-7.3) H 10/12/17 05:35 Eos % (Auto) 1.0 % (0.0-4.3) 10/12/17 05:35 Baso % (Auto) 0.8 % (0.0-1.8) 10/12/17 05:35 Lymph # 1.3 K/mm3 (1.2-5.4) 10/12/17 05:35 [place] # 1.1 K/mm3 (0.0-0.8) H 10/12/17 05:35 Eos # 0.1 K/mm3 (0.0-0.4) 10/12/17 05:35 Baso # 0.1 K/mm3 (0.0-0.1) 10/12/17 05:35 Add Manual Diff Complete 10/04/17 05:49 Total Counted 100 10/04/17 05:49 Seg Neutrophils % 76.5 % (40.0-70.0) H 10/12/17 05:35 Seg Neuts % (Manual) 72.0 % (40.0-70.0) H 10/04/17 05:49 Band Neutrophils % 0 % 10/04/17 05:49 Lymphocytes % (Manual) 17.0 % (13.4-35.0) 10/04/17 05:49 Reactive Lymphs % (Man) 0 % 10/04/17 05:49 Monocytes % (Manual) 9.0 % (0.0-7.3) H 10/04/17 05:49 Eosinophils % (Manual) 2.0 % (0.0-4.3) 10/04/17 05:49 Basophils % (Manual) 0 % (0.0-1.8) 10/04/17 05:49 Metamyelocytes % 0 % 10/04/17 05:49 Myelocytes % 0 % 10/04/17 05:49 Promyelocytes % 0 % 10/04/17 05:49 Blast Cells % 0 % 10/04/17 05:49 Nucleated RBC % Not Reportable 10/04/17 05:49 Seg Neutrophils # 8.5 K/mm3 (1.8-7.7) H 10/12/17 05:35 Seg Neutrophils # Man 5.3 K/mm3 (1.8-7.7) 10/04/17 05:49 Band Neutrophils # 0.0 K/mm3 10/04/17 05:49 Lymphocytes # (Manual) 1.3 K/mm3 (1.2-5.4) 10/04/17 05:49 Abs React Lymphs (Man) 0.0 K/mm3 10/04/17 05:49 Monocytes # (Manual) 0.7 K/mm3 (0.0-0.8) 10/04/17 05:49 Eosinophils # (Manual) 0.1 K/mm3 (0.0-0.4) 10/04/17 05:49 Basophils # (Manual) 0.0 K/mm3 (0.0-0.1) 10/04/17 05:49 Metamyelocytes # 0.0 K/mm3 10/04/17 05:49 Myelocytes # 0.0 K/mm3 10/04/17 05:49 Promyelocytes # 0.0 K/mm3 10/04/17 05:49 Blast Cells # 0.0 K/mm3 10/04/17 05:49 WBC Morphology Not Reportable 10/04/17 05:49 Hypersegmented Neuts Not Reportable 10/04/17 05:49 Hyposegmented Neuts Not Reportable 10/04/17 05:49 Hypogranular Neuts Not Reportable 10/04/17 05:49 Smudge Cells Not Reportable 10/04/17 05:49 Toxic Granulation Not Reportable 10/04/17 05:49 Toxic Vacuolation Not Reportable 10/04/17 05:49 Dohle Bodies Not Reportable 10/04/17 05:49 Pelger-Huet Anomaly Not Reportable 10/04/17 05:49 Idaz Rods Not Reportable 10/04/17 05:49 Platelet Estimate Appears normal 10/04/17 05:49 Clumped Platelets Not Reportable 10/04/17 05:49 Plt Clumps, EDTA Not Reportable 10/04/17 05:49 Large Platelets Not Reportable 10/04/17 05:49 Giant Platelets Not Reportable 10/04/17 05:49 Platelet Satelliting Not Reportable 10/04/17 05:49 Plt Morphology Comment Not Reportable 10/04/17 05:49 RBC Morphology Not Reportable 10/04/17 05:49 Dimorphic RBCs Not Reportable 10/04/17 05:49 Polychromasia Few 10/04/17 05:49 Hypochromasia Not Reportable 10/04/17 05:49 Poikilocytosis Not Reportable 10/04/17 05:49 Anisocytosis 1+ 10/04/17 05:49 Microcytosis Not Reportable 10/04/17 05:49 Macrocytosis Not Reportable 10/04/17 05:49 Spherocytes Not Reportable 10/04/17 05:49 Pappenheimer Bodies Not Reportable 10/04/17 05:49 Sickle Cells Not Reportable 10/04/17 05:49 Target Cells Not Reportable 10/04/17 05:49 Tear Drop Cells Not Reportable 10/04/17 05:49 Ovalocytes Not Reportable 10/04/17 05:49 Helmet Cells Not Reportable 10/04/17 05:49 Guzmán-Bent Bodies Not Reportable 10/04/17 05:49 Ames Rings Not Reportable 10/04/17 05:49 Filer Cells Not Reportable 10/04/17 05:49 Bite Cells Not Reportable 10/04/17 05:49 Crenated Cell Not Reportable 10/04/17 05:49 Elliptocytes Not Reportable 10/04/17 05:49 Acanthocytes (Spur) Not Reportable 10/04/17 05:49 Rouleaux Not Reportable 10/04/17 05:49 Hemoglobin C Crystals Not Reportable 10/04/17 05:49 Schistocytes Not Reportable 10/04/17 05:49 Malaria parasites Not Reportable 10/04/17 05:49 Dash Bodies Not Reportable 10/04/17 05:49 Hem Pathologist Commnt No 10/04/17 05:49 PT 15.7 Sec. (12.2-14.9) H 10/08/17 04:59 INR 1.19 (0.87-1.13) H 10/08/17 04:59 POC ABG pH 7.459 (7.35-7.45) H 09/23/17 15:04 POC ABG pCO2 34.8 (35-45) L 09/23/17 15:04 POC ABG pO2 54 (80-105) L 09/23/17 15:04 POC ABG HCO3 24.7 09/23/17 15:04 POC ABG Total CO2 26 09/23/17 15:04 POC ABG O2 Sat 89 09/23/17 15:04 POC ABG Base Excess 1 09/23/17 15:04 FiO2 21 % 09/23/17 15:04 Sodium 137 mmol/L (137-145) 10/12/17 05:35 Potassium 4.2 mmol/L (3.6-5.0) 10/12/17 05:35 Chloride 95.7 mmol/L (98-107) L 10/12/17 05:35 Carbon Dioxide 26 mmol/L (22-30) 10/12/17 05:35 Anion Gap 20 mmol/L 10/12/17 05:35 BUN 34 mg/dL (9-20) H 10/12/17 05:35 Creatinine 2.3 mg/dL (0.8-1.5) H 10/12/17 05:35 Estimated GFR 38 ml/min 10/12/17 05:35 BUN/Creatinine Ratio 15 % 10/12/17 05:35 Glucose 107 mg/dL (75-100) H 10/12/17 05:35 POC Glucose 115 (70-105) H 10/12/17 12:16 Osmolality 299 Mosm/kg 09/30/17 05:21 Calcium 8.5 mg/dL (8.4-10.2) 10/12/17 05:35 Phosphorus 4.10 mg/dL (2.5-4.5) 10/12/17 05:35 Magnesium 1.70 mg/dL (1.7-2.3) 09/26/17 05:35 Total Bilirubin 0.40 mg/dL (0.1-1.2) 10/07/17 05:32 Direct Bilirubin < 0.2 mg/dL (0-0.2) 10/07/17 05:32 AST 21 units/L (5-40) 10/07/17 05:32 ALT 32 units/L (7-56) 10/07/17 05:32 Alkaline Phosphatase 119 units/L (35-129) 10/07/17 05:32 Total Creatine Kinase 170 units/L (55-170) 09/23/17 04:10 CK-MB (CK-2) 1.4 ng/mL (0.0-4.0) 09/23/17 04:10 CK-MB (CK-2) Rel Index 0.8 (0-4) 09/23/17 04:10 Troponin T 0.287 ng/mL (0.00-0.029) H* 09/23/17 04:10 C-Reactive Protein 7.60 mg/dL (0.00-1.30) H 10/01/17 20:41 NT-Pro-B Natriuret Pep 5093 pg/mL (0-450) H 09/22/17 21:31 Total Protein 7.2 g/dL (6.3-8.2) 10/07/17 05:32 Albumin 2.8 g/dL (3.9-5) L 10/07/17 05:32 Albumin/Globulin Ratio 0.6 % 10/07/17 05:32 Triglycerides 226 mg/dL (2-149) H 09/22/17 21:31 Cholesterol 235 mg/dL (50-199) H 09/22/17 21:31 LDL Cholesterol Direct 164 mg/dL (50-130) H 09/22/17 21:31 HDL Cholesterol 26 mg/dL (40-59) L 09/22/17 21:31 Cholesterol/HDL Ratio 9.03 % 09/22/17 21:31 Urine Eosinophils None seen (None Seen) 09/29/17 Unknown Urine Total Volume 2100 10/08/17 Unknown Urine Creatinine 45.5 mg/dL (0.1-20.0) H 10/08/17 Unknown Ur Creatinine 24 Hour 1.0 (0.8-2.8) 10/07/17 Unknown Height (in) 69.0 inches 10/08/17 Unknown Weight (lb) 220.0 lbs 10/08/17 Unknown Creatinine Clearance 15 10/08/17 Unknown Vancomycin Trough 36.3 ug/mL (5.0-20.0) H 09/28/17 07:00 Hepatitis A IgM Ab Non-reactive (NonReactive) 10/02/17 17:35 Hep Bs Antigen Non-reactive (Negative) 10/02/17 17:35 Hep B Core IgM Ab Non-reactive (NonReactive) 10/02/17 17:35 Hepatitis C Antibody Non-reactive (NonReactive) 10/02/17 17:35 HIV-1 RNA PCR copies/ml TNR 09/27/17 21:18 HIV-1 RNA (PCR) log TNR 09/27/17 21:18 HIV 1&2 Antibody Rapid Non react (Non React) 09/27/17 21:18 HIV P24 Antigen Non react (Non React) 09/27/17 21:18 Miscellaneous Test Flexitest 1 H 09/27/17 21:19
--- NOTE | 2017-10-12 14:31 | Progress Note ---
Assessment and Plan Acute hypoxemic respiratory failure Bilateral infiltrates, pneumonia Sepsis Acute CVA, right visual field defect Hyponatremia Diabetes, poorly controlled Morbid obesity Systolic heart failure, EF 15% Cardiomyopathy, nonischemic -EF 10-15% on echocardiogram. -no significant obstructive CAD on [facility] this admission Tobacco abuse disorder Acute Renal failure Hypertension Hyperlipidemia -Monitor off antibiotics -Continue bronchodilators, supplemental oxygen -Assess need for HD on daily basis -Cardioprotective measures -Life vest -Out patient sleep study -Smoking cessation counselling -Avoid Nephrotoxic agents -Renally dose medications -Obtain daily weights -Monitor intake and output -Monitor renal function closely Subjective Date of service: 10/12/17 Principal diagnosis: Acute Hypoxemic Resp Failure; Bilateral Pulmonary Infiltrates; HFrEF Interval history: Patient is seen today for: Acute Hypoxemic Resp Failure; Bilateral Pulmonary Infiltrates; HFrEF Seen and examined at bedside; 24hour events reviewed; nursing and respiratory care staff consulted; no adverse overnight events reported to me; resting in bed ; feels better; on 2L NC; denies acute chest pains; no cough no hemoptysis; No N/V/F/C Awaiting life vest for discharge planning, will need ongoing HD as an out patient Objective - Exam Narrative Exam: GEN APPEARANCE : Not in acute distress,obese HEENT: Normocephalic, Atraumatic NECK : supple, no JVD LUNGS: bilateral rales, no wheeze HEART: S1 and S2 regular, no murmurs, rubs or gallop, ABD: Soft, non tender, non distended, normal bowel sounds EXT:No edema, no clubbing, no cyanosis NEURO: Awake, alert,oriented x 3, right visual field defect Vital Signs - 12hr 10/12/17 10/12/17 10/12/17 04:19 05:19 08:47 Temperature 99.2 F 98.3 F Pulse Rate 100 H 76 Respiratory 17 18 Rate Blood Pressure 113/82 113/88 Blood Pressure 112/79 [Left] O2 Sat by Pulse 92 Oximetry 10/12/17 10/12/17 09:40 10:55 Temperature Pulse Rate Respiratory 20 Rate Blood Pressure 112/79 Blood Pressure [Left] O2 Sat by Pulse Oximetry Constitutional: no acute distress, alert Eyes: non-icteric ENT: oropharynx moist, other (No thyromegaly) Neck: supple, no lymphadenopathy, no JVD Effort: mildly labored Ascultation: Bilateral: diminished breath sounds, rales (bases) Percussion: Bilateral: not dull Cardiovascular: regular rate and rhythm, murmur noted, other (no rubs) Gastrointestinal: normoactive bowel sounds, soft, non-tender, non-distended, other (no palpable HSM) Integumentary: normal Extremities: no cyanosis, pulses normal, no ischemia or petechiae, edema Neurologic: normal mental status, non-focal exam, pupils equal and round, CN II- XII normal Psychiatric: mood appropriate, affect normal CBC and BMP: 10/12/17 05:35 10/12/17 05:35 ABG, PT/INR, D-dimer: ABG POC ABG pH 7.459 (7.35-7.45) H 09/23/17 15:04 POC ABG pCO2 34.8 (35-45) L 09/23/17 15:04 POC ABG pO2 54 (80-105) L 09/23/17 15:04 POC ABG HCO3 24.7 09/23/17 15:04 POC ABG Total CO2 26 09/23/17 15:04 POC ABG O2 Sat 89 09/23/17 15:04 PT/INR, D-dimer PT 15.7 Sec. (12.2-14.9) H 10/08/17 04:59 INR 1.19 (0.87-1.13) H 10/08/17 04:59 Abnormal lab findings: Abnormal Labs 09/22/17 09/22/17 09/22/17 21:30 21:31 21:31 WBC RBC Hgb Hct MCH RDW 15.3 H Lymph % (Auto) [place] % (Auto) 9.6 H Eos % (Auto) Lymph # [place] # 0.9 H Seg Neutrophils % 72.0 H Seg Neuts % (Manual) Monocytes % (Manual) Seg Neutrophils # PT INR POC ABG pH POC ABG pCO2 POC ABG pO2 Sodium Chloride Carbon Dioxide BUN Creatinine Glucose POC Glucose Calcium Total Creatine Kinase 371 H Troponin T 0.260 H* C-Reactive Protein NT-Pro-B Natriuret Pep 5093 H Albumin Triglycerides 226 H Cholesterol 235 H LDL Cholesterol Direct 164 H HDL Cholesterol 26 L Urine Creatinine Vancomycin Trough Miscellaneous Test 09/22/17 09/22/17 09/23/17 22:54 22:54 04:00 WBC RBC Hgb Hct MCH RDW Lymph % (Auto) [place] % (Auto) 11.9 H Eos % (Auto) Lymph # [place] # Seg Neutrophils % Seg Neuts % (Manual) Monocytes % (Manual) Seg Neutrophils # PT INR POC ABG pH POC ABG pCO2 POC ABG pO2 Sodium 129 L Chloride 91.6 L Carbon Dioxide BUN Creatinine 0.7 L Glucose 256 H POC Glucose Calcium 7.9 L Total Creatine Kinase 211 H Troponin T 0.344 H* D C-Reactive Protein NT-Pro-B Natriuret Pep Albumin Triglycerides Cholesterol LDL Cholesterol Direct HDL Cholesterol Urine Creatinine Vancomycin Trough Miscellaneous Test 09/23/17 09/23/17 09/23/17 04:00 04:10 09:09 WBC RBC Hgb Hct MCH RDW Lymph % (Auto) [place] % (Auto) Eos % (Auto) Lymph # [place] # Seg Neutrophils % Seg Neuts % (Manual) Monocytes % (Manual) Seg Neutrophils # PT INR POC ABG pH POC ABG pCO2 POC ABG pO2 Sodium 136 L D Chloride 95.3 L Carbon Dioxide BUN Creatinine Glucose 181 H POC Glucose 166 H Calcium 7.7 L Total Creatine Kinase Troponin T 0.287 H* C-Reactive Protein NT-Pro-B Natriuret Pep Albumin Triglycerides Cholesterol LDL Cholesterol Direct HDL Cholesterol Urine Creatinine Vancomycin Trough Miscellaneous Test 09/23/17 09/23/17 09/23/17 11:40 13:19 15:04 WBC RBC Hgb Hct MCH RDW Lymph % (Auto) [place] % (Auto) Eos % (Auto) Lymph # [place] # Seg Neutrophils % Seg Neuts % (Manual) Monocytes % (Manual) Seg Neutrophils # PT INR POC ABG pH 7.459 H POC ABG pCO2 34.8 L POC ABG pO2 54 L Sodium Chloride Carbon Dioxide BUN Creatinine Glucose POC Glucose 221 H 267 H Calcium Total Creatine Kinase Troponin T C-Reactive Protein NT-Pro-B Natriuret Pep Albumin Triglycerides Cholesterol LDL Cholesterol Direct HDL Cholesterol Urine Creatinine Vancomycin Trough Miscellaneous Test 09/23/17 09/23/17 09/24/17 15:57 22:07 04:40 WBC RBC Hgb Hct MCH RDW Lymph % (Auto) [place] % (Auto) 11.4 H Eos % (Auto) Lymph # [place] # Seg Neutrophils % Seg Neuts % (Manual) Monocytes % (Manual) Seg Neutrophils # PT INR POC ABG pH POC ABG pCO2 POC ABG pO2 Sodium Chloride Carbon Dioxide BUN Creatinine Glucose POC Glucose 281 H 166 H Calcium Total Creatine Kinase Troponin T C-Reactive Protein NT-Pro-B Natriuret Pep Albumin Triglycerides Cholesterol LDL Cholesterol Direct HDL Cholesterol Urine Creatinine Vancomycin Trough Miscellaneous Test 09/24/17 09/24/17 09/24/17 04:40 08:42 12:17 WBC RBC Hgb Hct MCH RDW Lymph % (Auto) [place] % (Auto) Eos % (Auto) Lymph # [place] # Seg Neutrophils % Seg Neuts % (Manual) Monocytes % (Manual) Seg Neutrophils # PT INR POC ABG pH POC ABG pCO2 POC ABG pO2 Sodium 133 L Chloride 95.6 L Carbon Dioxide BUN Creatinine 0.7 L Glucose 251 H POC Glucose 173 H 209 H Calcium 7.8 L Total Creatine Kinase Troponin T C-Reactive Protein NT-Pro-B Natriuret Pep Albumin Triglycerides Cholesterol LDL Cholesterol Direct HDL Cholesterol Urine Creatinine Vancomycin Trough Miscellaneous Test 09/24/17 09/24/17 09/25/17 16:13 21:21 12:44 WBC RBC Hgb Hct MCH RDW Lymph % (Auto) [place] % (Auto) Eos % (Auto) Lymph # [place] # Seg Neutrophils % Seg Neuts % (Manual) Monocytes % (Manual) Seg Neutrophils # PT INR POC ABG pH POC ABG pCO2 POC ABG pO2 Sodium Chloride Carbon Dioxide BUN Creatinine Glucose POC Glucose 248 H 152 H 185 H Calcium Total Creatine Kinase Troponin T C-Reactive Protein NT-Pro-B Natriuret Pep Albumin Triglycerides Cholesterol LDL Cholesterol Direct HDL Cholesterol Urine Creatinine Vancomycin Trough Miscellaneous Test 09/25/17 09/25/17 09/26/17 17:18 23:10 05:35 WBC 15.6 H RBC Hgb Hct MCH RDW Lymph % (Auto) [place] % (Auto) Eos % (Auto) Lymph # [place] # Seg Neutrophils % 78.5 H Seg Neuts % (Manual) Monocytes % (Manual) Seg Neutrophils # 12.2 H PT INR POC ABG pH POC ABG pCO2 POC ABG pO2 Sodium Chloride Carbon Dioxide BUN Creatinine Glucose POC Glucose 186 H 187 H Calcium Total Creatine Kinase Troponin T C-Reactive Protein NT-Pro-B Natriuret Pep Albumin Triglycerides Cholesterol LDL Cholesterol Direct HDL Cholesterol Urine Creatinine Vancomycin Trough Miscellaneous Test 09/26/17 09/26/17 09/26/17 05:35 09:02 12:20 WBC RBC Hgb Hct MCH RDW Lymph % (Auto) [place] % (Auto) Eos % (Auto) Lymph # [place] # Seg Neutrophils % Seg Neuts % (Manual) Monocytes % (Manual) Seg Neutrophils # PT INR POC ABG pH POC ABG pCO2 POC ABG pO2 Sodium 133 L Chloride 95.2 L Carbon Dioxide BUN Creatinine 0.7 L Glucose 161 H POC Glucose 131 H 199 H Calcium 8.3 L Total Creatine Kinase Troponin T C-Reactive Protein NT-Pro-B Natriuret Pep Albumin Triglycerides Cholesterol LDL Cholesterol Direct HDL Cholesterol Urine Creatinine Vancomycin Trough Miscellaneous Test 09/26/17 09/26/17 09/27/17 16:39 21:45 07:24 WBC RBC Hgb Hct MCH RDW Lymph % (Auto) [place] % (Auto) Eos % (Auto) Lymph # [place] # Seg Neutrophils % Seg Neuts % (Manual) Monocytes % (Manual) Seg Neutrophils # PT INR POC ABG pH POC ABG pCO2 POC ABG pO2 Sodium Chloride Carbon Dioxide BUN Creatinine Glucose POC Glucose 209 H 194 H 210 H Calcium Total Creatine Kinase Troponin T C-Reactive Protein NT-Pro-B Natriuret Pep Albumin Triglycerides Cholesterol LDL Cholesterol Direct HDL Cholesterol Urine Creatinine Vancomycin Trough Miscellaneous Test 09/27/17 09/27/17 09/27/17 09:20 09:20 11:50 WBC RBC Hgb 11.0 L Hct MCH RDW Lymph % (Auto) [place] % (Auto) Eos % (Auto) Lymph # [place] # Seg Neutrophils % 77.2 H Seg Neuts % (Manual) Monocytes % (Manual) Seg Neutrophils # PT INR POC ABG pH POC ABG pCO2 POC ABG pO2 Sodium 134 L Chloride 96.1 L Carbon Dioxide BUN 21 H Creatinine Glucose 139 H POC Glucose Calcium 8.0 L Total Creatine Kinase Troponin T C-Reactive Protein NT-Pro-B Natriuret Pep Albumin Triglycerides Cholesterol LDL Cholesterol Direct HDL Cholesterol Urine Creatinine Vancomycin Trough 46.8 H Miscellaneous Test 09/27/17 09/27/17 09/27/17 11:50 12:18 17:00 WBC RBC Hgb 10.7 L Hct 32.1 L D MCH RDW Lymph % (Auto) [place] % (Auto) Eos % (Auto) Lymph # [place] # Seg Neutrophils % 80.6 H Seg Neuts % (Manual) Monocytes % (Manual) Seg Neutrophils # PT INR POC ABG pH POC ABG pCO2 POC ABG pO2 Sodium Chloride Carbon Dioxide BUN Creatinine Glucose POC Glucose 274 H 169 H Calcium Total Creatine Kinase Troponin T C-Reactive Protein NT-Pro-B Natriuret Pep Albumin Triglycerides Cholesterol LDL Cholesterol Direct HDL Cholesterol Urine Creatinine Vancomycin Trough Miscellaneous Test 09/27/17 09/27/17 09/27/17 21:18 21:19 23:28 WBC RBC Hgb Hct MCH RDW Lymph % (Auto) [place] % (Auto) Eos % (Auto) Lymph # [place] # Seg Neutrophils % Seg Neuts % (Manual) Monocytes % (Manual) Seg Neutrophils # PT INR POC ABG pH POC ABG pCO2 POC ABG pO2 Sodium Chloride Carbon Dioxide BUN Creatinine Glucose POC Glucose 251 H Calcium Total Creatine Kinase Troponin T C-Reactive Protein 34.90 H NT-Pro-B Natriuret Pep Albumin Triglycerides Cholesterol LDL Cholesterol Direct HDL Cholesterol Urine Creatinine Vancomycin Trough Miscellaneous Test Flexitest 1 H 09/27/17 09/28/17 09/28/17 23:49 07:00 07:00 WBC RBC 3.44 L Hgb 9.9 L Hct 29.6 L MCH RDW Lymph % (Auto) [place] % (Auto) Eos % (Auto) Lymph # 1.0 L [place] # Seg Neutrophils % 76.2 H Seg Neuts % (Manual) Monocytes % (Manual) Seg Neutrophils # PT INR POC ABG pH POC ABG pCO2 POC ABG pO2 Sodium 128 L Chloride 92.1 L Carbon Dioxide 20 L BUN 40 H Creatinine 3.1 H D Glucose 199 H POC Glucose 233 H Calcium 7.5 L Total Creatine Kinase Troponin T C-Reactive Protein NT-Pro-B Natriuret Pep Albumin Triglycerides Cholesterol LDL Cholesterol Direct HDL Cholesterol Urine Creatinine Vancomycin Trough Miscellaneous Test 09/28/17 09/28/17 09/28/17 07:00 08:03 13:31 WBC RBC Hgb Hct MCH RDW Lymph % (Auto) [place] % (Auto) Eos % (Auto) Lymph # [place] # Seg Neutrophils % Seg Neuts % (Manual) Monocytes % (Manual) Seg Neutrophils # PT INR POC ABG pH POC ABG pCO2 POC ABG pO2 Sodium Chloride Carbon Dioxide BUN Creatinine Glucose POC Glucose 165 H 237 H Calcium Total Creatine Kinase Troponin T C-Reactive Protein NT-Pro-B Natriuret Pep Albumin Triglycerides Cholesterol LDL Cholesterol Direct HDL Cholesterol Urine Creatinine Vancomycin Trough 36.3 H Miscellaneous Test 09/28/17 09/28/17 09/29/17 16:20 22:12 05:20 WBC RBC Hgb 11.4 L Hct 34.5 L MCH RDW Lymph % (Auto) 10.5 L [place] % (Auto) 9.1 H Eos % (Auto) Lymph # 0.5 L [place] # Seg Neutrophils % 75.8 H Seg Neuts % (Manual) Monocytes % (Manual) Seg Neutrophils # PT INR POC ABG pH POC ABG pCO2 POC ABG pO2 Sodium Chloride Carbon Dioxide BUN Creatinine Glucose POC Glucose 323 H 164 H Calcium Total Creatine Kinase Troponin T C-Reactive Protein NT-Pro-B Natriuret Pep Albumin Triglycerides Cholesterol LDL Cholesterol Direct HDL Cholesterol Urine Creatinine Vancomycin Trough Miscellaneous Test 09/29/17 09/29/17 09/29/17 05:20 07:53 16:21 WBC RBC Hgb Hct MCH RDW Lymph % (Auto) [place] % (Auto) Eos % (Auto) Lymph # [place] # Seg Neutrophils % Seg Neuts % (Manual) Monocytes % (Manual) Seg Neutrophils # PT INR POC ABG pH POC ABG pCO2 POC ABG pO2 Sodium 128 L Chloride 91.6 L Carbon Dioxide 21 L BUN 51 H Creatinine 3.8 H Glucose 161 H POC Glucose 128 H 141 H Calcium Total Creatine Kinase Troponin T C-Reactive Protein NT-Pro-B Natriuret Pep Albumin Triglycerides Cholesterol LDL Cholesterol Direct HDL Cholesterol Urine Creatinine Vancomycin Trough Miscellaneous Test 09/29/17 09/30/17 09/30/17 22:17 05:21 05:21 WBC RBC Hgb 10.3 L Hct 32.1 L MCH 27 L RDW Lymph % (Auto) 11.6 L [place] % (Auto) 9.3 H Eos % (Auto) 4.9 H Lymph # 0.8 L [place] # Seg Neutrophils % 73.6 H Seg Neuts % (Manual) Monocytes % (Manual) Seg Neutrophils # PT INR POC ABG pH POC ABG pCO2 POC ABG pO2 Sodium 127 L Chloride 90.9 L Carbon Dioxide BUN 52 H Creatinine 4.5 H Glucose 187 H POC Glucose 158 H Calcium 7.9 L Total Creatine Kinase Troponin T C-Reactive Protein NT-Pro-B Natriuret Pep Albumin Triglycerides Cholesterol LDL Cholesterol Direct HDL Cholesterol Urine Creatinine Vancomycin Trough Miscellaneous Test 09/30/17 09/30/17 09/30/17 07:47 11:55 21:44 WBC RBC Hgb Hct MCH RDW Lymph % (Auto) [place] % (Auto) Eos % (Auto) Lymph # [place] # Seg Neutrophils % Seg Neuts % (Manual) Monocytes % (Manual) Seg Neutrophils # PT INR POC ABG pH POC ABG pCO2 POC ABG pO2 Sodium Chloride Carbon Dioxide BUN Creatinine Glucose POC Glucose 137 H 184 H 141 H Calcium Total Creatine Kinase Troponin T C-Reactive Protein NT-Pro-B Natriuret Pep Albumin Triglycerides Cholesterol LDL Cholesterol Direct HDL Cholesterol Urine Creatinine Vancomycin Trough Miscellaneous Test 10/01/17 10/01/17 10/01/17 06:03 06:03 16:37 WBC RBC Hgb 11.3 L Hct 33.6 L MCH RDW Lymph % (Auto) 11.2 L [place] % (Auto) 10.2 H Eos % (Auto) Lymph # 1.1 L [place] # 1.0 H Seg Neutrophils % 74.5 H Seg Neuts % (Manual) Monocytes % (Manual) Seg Neutrophils # PT INR POC ABG pH POC ABG pCO2 POC ABG pO2 Sodium 130 L Chloride 92.3 L Carbon Dioxide BUN 53 H Creatinine 4.5 H Glucose POC Glucose 125 H Calcium 8.0 L Total Creatine Kinase Troponin T C-Reactive Protein NT-Pro-B Natriuret Pep Albumin Triglycerides Cholesterol LDL Cholesterol Direct HDL Cholesterol Urine Creatinine Vancomycin Trough Miscellaneous Test 10/01/17 10/01/17 10/02/17 20:41 21:47 06:21 WBC RBC Hgb 11.5 L Hct 34.5 L MCH RDW 15.3 H Lymph % (Auto) [place] % (Auto) 12.4 H Eos % (Auto) Lymph # 0.9 L [place] # Seg Neutrophils % 70.6 H Seg Neuts % (Manual) Monocytes % (Manual) Seg Neutrophils # PT INR POC ABG pH POC ABG pCO2 POC ABG pO2 Sodium Chloride Carbon Dioxide BUN Creatinine Glucose POC Glucose 115 H Calcium Total Creatine Kinase Troponin T C-Reactive Protein 7.60 H NT-Pro-B Natriuret Pep Albumin Triglycerides Cholesterol LDL Cholesterol Direct HDL Cholesterol Urine Creatinine Vancomycin Trough Miscellaneous Test 10/02/17 10/02/17 10/02/17 06:21 07:47 21:56 WBC RBC Hgb Hct MCH RDW Lymph % (Auto) [place] % (Auto) Eos % (Auto) Lymph # [place] # Seg Neutrophils % Seg Neuts % (Manual) Monocytes % (Manual) Seg Neutrophils # PT INR POC ABG pH POC ABG pCO2 POC ABG pO2 Sodium 133 L Chloride 92.7 L Carbon Dioxide BUN 51 H Creatinine 4.7 H Glucose 113 H POC Glucose 118 H 154 H Calcium 8.0 L Total Creatine Kinase Troponin T C-Reactive Protein NT-Pro-B Natriuret Pep Albumin Triglycerides Cholesterol LDL Cholesterol Direct HDL Cholesterol Urine Creatinine Vancomycin Trough Miscellaneous Test 10/03/17 10/03/17 10/03/17 06:13 06:13 16:50 WBC RBC Hgb 10.7 L Hct 31.9 L MCH RDW 15.6 H Lymph % (Auto) [place] % (Auto) Eos % (Auto) Lymph # [place] # Seg Neutrophils % Seg Neuts % (Manual) Monocytes % (Manual) Seg Neutrophils # PT INR POC ABG pH POC ABG pCO2 POC ABG pO2 Sodium 134 L Chloride 95.3 L Carbon Dioxide BUN 32 H Creatinine 3.7 H Glucose POC Glucose 126 H Calcium 7.8 L Total Creatine Kinase Troponin T C-Reactive Protein NT-Pro-B Natriuret Pep Albumin Triglycerides Cholesterol LDL Cholesterol Direct HDL Cholesterol Urine Creatinine Vancomycin Trough Miscellaneous Test 10/04/17 10/04/17 10/04/17 05:49 05:49 12:01 WBC RBC Hgb 10.8 L Hct 32.3 L MCH RDW 15.6 H Lymph % (Auto) [place] % (Auto) Eos % (Auto) Lymph # [place] # Seg Neutrophils % Seg Neuts % (Manual) 72.0 H Monocytes % (Manual) 9.0 H Seg Neutrophils # PT INR POC ABG pH POC ABG pCO2 POC ABG pO2 Sodium 133 L Chloride 93.7 L Carbon Dioxide BUN 23 H Creatinine 3.2 H Glucose POC Glucose 140 H Calcium 7.8 L Total Creatine Kinase Troponin T C-Reactive Protein NT-Pro-B Natriuret Pep Albumin Triglycerides Cholesterol LDL Cholesterol Direct HDL Cholesterol Urine Creatinine Vancomycin Trough Miscellaneous Test 10/04/17 10/04/17 10/05/17 17:35 20:44 05:34 WBC RBC 5.17 H Hgb Hct MCH 27 L RDW 15.5 H Lymph % (Auto) [place] % (Auto) 13.6 H Eos % (Auto) Lymph # [place] # 0.9 H Seg Neutrophils % Seg Neuts % (Manual) Monocytes % (Manual) Seg Neutrophils # PT INR POC ABG pH POC ABG pCO2 POC ABG pO2 Sodium Chloride Carbon Dioxide BUN Creatinine Glucose POC Glucose 143 H 135 H Calcium Total Creatine Kinase Troponin T C-Reactive Protein NT-Pro-B Natriuret Pep Albumin Triglycerides Cholesterol LDL Cholesterol Direct HDL Cholesterol Urine Creatinine Vancomycin Trough Miscellaneous Test 10/05/17 10/05/17 10/05/17 05:34 12:34 21:29 WBC RBC Hgb Hct MCH RDW Lymph % (Auto) [place] % (Auto) Eos % (Auto) Lymph # [place] # Seg Neutrophils % Seg Neuts % (Manual) Monocytes % (Manual) Seg Neutrophils # PT INR POC ABG pH POC ABG pCO2 POC ABG pO2 Sodium 132 L Chloride 92.7 L Carbon Dioxide BUN 36 H Creatinine 3.7 H Glucose POC Glucose 161 H 191 H Calcium 7.8 L Total Creatine Kinase Troponin T C-Reactive Protein NT-Pro-B Natriuret Pep Albumin Triglycerides Cholesterol LDL Cholesterol Direct HDL Cholesterol Urine Creatinine Vancomycin Trough Miscellaneous Test 10/06/17 10/06/17 10/06/17 05:50 05:50 13:14 WBC RBC Hgb 10.6 L D Hct 32.4 L D MCH RDW 15.5 H Lymph % (Auto) [place] % (Auto) 15.6 H Eos % (Auto) Lymph # [place] # 1.2 H Seg Neutrophils % Seg Neuts % (Manual) Monocytes % (Manual) Seg Neutrophils # PT INR POC ABG pH POC ABG pCO2 POC ABG pO2 Sodium 131 L Chloride 91.9 L Carbon Dioxide BUN 27 H Creatinine 3.0 H Glucose 140 H POC Glucose 162 H Calcium 7.9 L Total Creatine Kinase Troponin T C-Reactive Protein NT-Pro-B Natriuret Pep Albumin Triglycerides Cholesterol LDL Cholesterol Direct HDL Cholesterol Urine Creatinine Vancomycin Trough Miscellaneous Test 10/06/17 10/06/17 10/07/17 15:54 21:48 05:32 WBC RBC Hgb 11.3 L Hct 34.0 L MCH RDW 15.3 H Lymph % (Auto) [place] % (Auto) 13.4 H Eos % (Auto) Lymph # [place] # 1.1 H Seg Neutrophils % Seg Neuts % (Manual) Monocytes % (Manual) Seg Neutrophils # PT INR POC ABG pH POC ABG pCO2 POC ABG pO2 Sodium Chloride Carbon Dioxide BUN Creatinine Glucose POC Glucose 194 H 190 H Calcium Total Creatine Kinase Troponin T C-Reactive Protein NT-Pro-B Natriuret Pep Albumin Triglycerides Cholesterol LDL Cholesterol Direct HDL Cholesterol Urine Creatinine Vancomycin Trough Miscellaneous Test 10/07/17 10/07/17 10/07/17 05:32 05:32 08:43 WBC RBC Hgb Hct MCH RDW Lymph % (Auto) [place] % (Auto) Eos % (Auto) Lymph # [place] # Seg Neutrophils % Seg Neuts % (Manual) Monocytes % (Manual) Seg Neutrophils # PT INR POC ABG pH POC ABG pCO2 POC ABG pO2 Sodium 134 L Chloride 95.7 L Carbon Dioxide BUN 35 H Creatinine 3.3 H Glucose 101 H POC Glucose 131 H Calcium 8.1 L Total Creatine Kinase Troponin T C-Reactive Protein NT-Pro-B Natriuret Pep Albumin 2.8 L Triglycerides Cholesterol LDL Cholesterol Direct HDL Cholesterol Urine Creatinine Vancomycin Trough Miscellaneous Test 10/07/17 10/07/17 10/07/17 12:41 21:34 Unknown WBC RBC Hgb Hct MCH RDW Lymph % (Auto) [place] % (Auto) Eos % (Auto) Lymph # [place] # Seg Neutrophils % Seg Neuts % (Manual) Monocytes % (Manual) Seg Neutrophils # PT INR POC ABG pH POC ABG pCO2 POC ABG pO2 Sodium Chloride Carbon Dioxide BUN Creatinine Glucose POC Glucose 165 H 167 H Calcium Total Creatine Kinase Troponin T C-Reactive Protein NT-Pro-B Natriuret Pep Albumin Triglycerides Cholesterol LDL Cholesterol Direct HDL Cholesterol Urine Creatinine 45.7 H Vancomycin Trough Miscellaneous Test 10/08/17 10/08/17 10/08/17 04:59 04:59 04:59 WBC 11.2 H RBC Hgb 10.7 L Hct 32.5 L MCH RDW 15.5 H Lymph % (Auto) 13.2 L [place] % (Auto) 12.7 H Eos % (Auto) Lymph # [place] # 1.4 H Seg Neutrophils % 72.1 H Seg Neuts % (Manual) Monocytes % (Manual) Seg Neutrophils # 8.1 H PT 15.7 H INR 1.19 H POC ABG pH POC ABG pCO2 POC ABG pO2 Sodium 134 L Chloride 96.3 L Carbon Dioxide BUN 39 H Creatinine 3.4 H Glucose 105 H POC Glucose Calcium 8.3 L Total Creatine Kinase Troponin T C-Reactive Protein NT-Pro-B Natriuret Pep Albumin Triglycerides Cholesterol LDL Cholesterol Direct HDL Cholesterol Urine Creatinine Vancomycin Trough Miscellaneous Test 10/08/17 10/08/17 10/08/17 16:31 22:17 Unknown WBC RBC Hgb Hct MCH RDW Lymph % (Auto) [place] % (Auto) Eos % (Auto) Lymph # [place] # Seg Neutrophils % Seg Neuts % (Manual) Monocytes % (Manual) Seg Neutrophils # PT INR POC ABG pH POC ABG pCO2 POC ABG pO2 Sodium Chloride Carbon Dioxide BUN Creatinine Glucose POC Glucose 276 H 132 H Calcium Total Creatine Kinase Troponin T C-Reactive Protein NT-Pro-B Natriuret Pep Albumin Triglycerides Cholesterol LDL Cholesterol Direct HDL Cholesterol Urine Creatinine 45.5 H Vancomycin Trough Miscellaneous Test 10/09/17 10/09/17 10/09/17 05:49 05:49 08:47 WBC RBC Hgb 10.5 L Hct 31.8 L MCH RDW 15.8 H Lymph % (Auto) 8.5 L [place] % (Auto) 13.1 H Eos % (Auto) Lymph # 0.9 L [place] # 1.4 H Seg Neutrophils % 76.5 H Seg Neuts % (Manual) Monocytes % (Manual) Seg Neutrophils # 8.1 H PT INR POC ABG pH POC ABG pCO2 POC ABG pO2 Sodium 136 L Chloride Carbon Dioxide BUN 39 H Creatinine 3.1 H Glucose 139 H POC Glucose 121 H Calcium Total Creatine Kinase Troponin T C-Reactive Protein NT-Pro-B Natriuret Pep Albumin Triglycerides Cholesterol LDL Cholesterol Direct HDL Cholesterol Urine Creatinine Vancomycin Trough Miscellaneous Test 10/09/17 10/09/17 10/09/17 12:43 16:54 21:25 WBC RBC Hgb Hct MCH RDW Lymph % (Auto) [place] % (Auto) Eos % (Auto) Lymph # [place] # Seg Neutrophils % Seg Neuts % (Manual) Monocytes % (Manual) Seg Neutrophils # PT INR POC ABG pH POC ABG pCO2 POC ABG pO2 Sodium Chloride Carbon Dioxide BUN Creatinine Glucose POC Glucose 216 H 145 H 195 H Calcium Total Creatine Kinase Troponin T C-Reactive Protein NT-Pro-B Natriuret Pep Albumin Triglycerides Cholesterol LDL Cholesterol Direct HDL Cholesterol Urine Creatinine Vancomycin Trough Miscellaneous Test 10/10/17 10/10/17 10/10/17 08:20 08:35 08:35 WBC 12.9 H RBC Hgb 10.7 L Hct 33.3 L MCH 27 L RDW 15.4 H Lymph % (Auto) 10.3 L [place] % (Auto) 10.5 H Eos % (Auto) Lymph # [place] # 1.4 H Seg Neutrophils % 77.8 H Seg Neuts % (Manual) Monocytes % (Manual) Seg Neutrophils # 10.1 H PT INR POC ABG pH POC ABG pCO2 POC ABG pO2 Sodium Chloride 94.9 L Carbon Dioxide BUN 40 H Creatinine 2.9 H Glucose 119 H POC Glucose 126 H Calcium Total Creatine Kinase Troponin T C-Reactive Protein NT-Pro-B Natriuret Pep Albumin Triglycerides Cholesterol LDL Cholesterol Direct HDL Cholesterol Urine Creatinine Vancomycin Trough Miscellaneous Test 10/10/17 10/10/17 10/10/17 12:06 16:31 22:06 WBC RBC Hgb Hct MCH RDW Lymph % (Auto) [place] % (Auto) Eos % (Auto) Lymph # [place] # Seg Neutrophils % Seg Neuts % (Manual) Monocytes % (Manual) Seg Neutrophils # PT INR POC ABG pH POC ABG pCO2 POC ABG pO2 Sodium Chloride Carbon Dioxide BUN Creatinine Glucose POC Glucose 151 H 121 H 173 H Calcium Total Creatine Kinase Troponin T C-Reactive Protein NT-Pro-B Natriuret Pep Albumin Triglycerides Cholesterol LDL Cholesterol Direct HDL Cholesterol Urine Creatinine Vancomycin Trough Miscellaneous Test 10/11/17 10/11/17 10/11/17 08:29 08:29 11:52 WBC RBC Hgb 10.8 L Hct 33.4 L MCH 27 L RDW 15.6 H Lymph % (Auto) [place] % (Auto) 11.1 H Eos % (Auto) Lymph # [place] # 1.1 H Seg Neutrophils % 71.7 H Seg Neuts % (Manual) Monocytes % (Manual) Seg Neutrophils # PT INR POC ABG pH POC ABG pCO2 POC ABG pO2 Sodium Chloride Carbon Dioxide BUN 37 H Creatinine 2.6 H Glucose 116 H POC Glucose 107 H Calcium Total Creatine Kinase Troponin T C-Reactive Protein NT-Pro-B Natriuret Pep Albumin Triglycerides Cholesterol LDL Cholesterol Direct HDL Cholesterol Urine Creatinine Vancomycin Trough Miscellaneous Test 10/11/17 10/12/17 10/12/17 21:19 05:35 05:35 WBC 11.1 H RBC Hgb 11.1 L Hct 33.8 L MCH RDW 16.1 H Lymph % (Auto) 11.8 L [place] % (Auto) 9.9 H Eos % (Auto) Lymph # [place] # 1.1 H Seg Neutrophils % 76.5 H Seg Neuts % (Manual) Monocytes % (Manual) Seg Neutrophils # 8.5 H PT INR POC ABG pH POC ABG pCO2 POC ABG pO2 Sodium Chloride 95.7 L Carbon Dioxide BUN 34 H Creatinine 2.3 H Glucose 107 H POC Glucose 188 H Calcium Total Creatine Kinase Troponin T C-Reactive Protein NT-Pro-B Natriuret Pep Albumin Triglycerides Cholesterol LDL Cholesterol Direct HDL Cholesterol Urine Creatinine Vancomycin Trough Miscellaneous Test 10/12/17 12:16 WBC RBC Hgb Hct MCH RDW Lymph % (Auto) [place] % (Auto) Eos % (Auto) Lymph # [place] # Seg Neutrophils % Seg Neuts % (Manual) Monocytes % (Manual) Seg Neutrophils # PT INR POC ABG pH POC ABG pCO2 POC ABG pO2 Sodium Chloride Carbon Dioxide BUN Creatinine Glucose POC Glucose 115 H Calcium Total Creatine Kinase Troponin T C-Reactive Protein NT-Pro-B Natriuret Pep Albumin Triglycerides Cholesterol LDL Cholesterol Direct HDL Cholesterol Urine Creatinine Vancomycin Trough Miscellaneous Test
[2017-10-12] MEDS: PRAVACHOL PO SCH (22:19)
[2017-10-12] MEDS: LEVEMIR SUB-Q SCH (22:22)
[2017-10-12] MEDS: AMBIEN PO PRN (22:37)
[2017-10-13] MEDS: LOPRESSOR PO SCH ×3 (04:13→18:13)
[2017-10-13] MEDS: TYLENOL PO PRN (04:14)
[2017-10-13] MEDS: APRESOLINE PO SCH ×2 (06:24→18:13)
[2017-10-13 07:13] LABS: Basophils # (Auto) 0.1 K/mm3 (0.0-0.1); Basophils % (Auto) 0.9 % (0.0-1.8); Eosinophils # (Auto) 0.1 K/mm3 (0.0-0.4); Eosinophils % (Auto) 1.1 % (0.0-4.3); Hematocrit 31.5 % (35.5-45.6); Hemoglobin 10.3 gm/dl (11.8-15.2); Lymphocytes # (Auto) 1.5 K/mm3 (1.2-5.4); Mean Corpuscular HGB Conc 33 % (32-34); Mean Corpuscular Hemoglobin 28 pg (28-32); Mean Corpuscular Volume 84 fl (84-94); Monocytes # (Auto) 1.1 K/mm3 (0.0-0.8); Monocytes % (Auto) 11.2 % (0.0-7.3); Platelet Count 388 K/mm3 (140-440); Red Blood Count 3.73 M/mm3 (3.65-5.03); Red Cell Distribution Width 15.6 % (13.2-15.2)
[2017-10-13 07:28] LABS: Calcium 8.3 mg/dL (8.4-10.2)
[2017-10-13] MEDS: NOVOLOG SUB-Q SCH ×3 (08:10→18:13)
[2017-10-13 09:10] VITALS: BP 115/80
[2017-10-13] MEDS: LOVENOX SUB-Q SCH (10:49)
[2017-10-13] MEDS: LASIX PO SCH (10:50)
[2017-10-13] MEDS: BABY ASPIRIN PO SCH (10:50)
[2017-10-13] MEDS: PROTONIX PO SCH (10:50)
--- NOTE | 2017-10-13 11:28 | Progress Note ---
Assessment and Plan - Patient Problems (1) Acute renal failure (ARF) Current Visit: Yes Status: Acute Plan to address problem: Renal function reviewed. Serum creatinine 1.9 with a GFR of 47 ml/min. Has good UOP Will have vascular cath removed today Avoid Nephrotoxic agents Renally dose medications Obtain daily weights Monitor intake and output Patient is cleared from renal standpoint after removal of vascular catheter today to be discharged Patient to f/u with us in office in 7-10 days of discharge at [facility]: [address] [place] [address]. [place] [address]. Phone- [phone]. (2) Bilateral pneumonia Current Visit: Yes Status: Acute Qualifiers: Pneumonia type: due to unspecified organism Lung location: unspecified part of lung Qualified Code(s): J18.9 - Pneumonia, unspecified organism Plan to address problem: S/P IV Levaquin and Zyvox (3) Systolic heart failure Current Visit: Yes Status: Acute Plan to address problem: S/P Milronone drip as per Cardiology On Lasix 40 mg po daily Life vest given severe non ischemic cardiomyopathy and multiple episodes of NSVT per Cardiology (4) Diabetes mellitus type 2, insulin dependent Current Visit: No Status: Acute Plan to address problem: Insulin as per Primary team (5) Hyponatremia Current Visit: Yes Status: Acute Plan to address problem: Fluid restriction of 750 ml per No salt tablets due to CHF (6) Hypertension Current Visit: Yes Status: Acute Plan to address problem: Blood pressures are stable. Subjective Date of service: 10/13/17 Principal diagnosis: Acute Hypoxemic Resp Failure; Bilateral Pulmonary Infiltrates; HFrEF Interval history: Patient seen lying in bed. Discussed renal plan of care with patient. Objective - Vital Signs Vital signs: Vital Signs - 12hr 10/12/17 10/13/17 10/13/17 23:48 03:51 04:13 Temperature 99.0 F 100.0 F H Pulse Rate 105 H 109 H 110 H Respiratory 18 18 Rate Blood Pressure 111/73 111/67 111/67 Blood Pressure [Left] O2 Sat by Pulse 90 95 Oximetry 10/13/17 10/13/17 06:24 09:09 Temperature 97.9 F Pulse Rate 100 H 101 H Respiratory 18 Rate Blood Pressure 115/85 Blood Pressure 115/80 [Left] O2 Sat by Pulse 98 Oximetry - General Appearance General appearance: well-developed, appears stated age EENT: ATNC, PERRL, hearing intact, vision intact Neck: no JVD, supple Respiratory: Present: Decreased Breath Sounds Cardiology: tachycardia, S1S2 Gastrointestinal: normoactive bowel sounds Integumentary: warm and dry Neurologic: alert and oriented x3 Musculoskeletal: other (No edema) - Lab 10/13/17 06:20 10/13/17 06:20 Most recent lab results Calcium 8.3 mg/dL (8.4-10.2) L 10/13/17 06:20 Phosphorus 4.10 mg/dL (2.5-4.5) 10/12/17 05:35 Magnesium 1.70 mg/dL (1.7-2.3) 09/26/17 05:35 Urine Creatinine 45.5 mg/dL (0.1-20.0) H 10/08/17 Unknown
--- NOTE | 2017-10-13 11:47 | Progress Note ---
Assessment and Plan Acute CVA Presumed cardio-embolic given underlying severe cardiomyopathy Plan is to start oral anticoagulation in 2-3 weeks per neurology. refused MAYKEL Pneumonia Chronic systolic heart failure Acute renal failure -improved s/p temporary dialysis Cardiomyopathy, nonischemic EF 10-15% on echocardiogram. no significant obstructive CAD on [facility] this admission. Diabetes Hypertension Hyperlipidemia Non Sustained Ventricular Tachycardia Multiple episodes noted on telemetry Lifevest delivered/in place Recommend: Continue medical therapy for nonischemic cardiomyopathy. F/U with [facility] within 1 wk of discharge. Subjective Date of service: 10/13/17 Principal diagnosis: Acute Hypoxemic Resp Failure; Bilateral Pulmonary Infiltrates; HFrEF Interval history: Patient has no cardiac complaints. Objective Vital Signs Temp Pulse Resp BP BP Pulse Ox 10/13/17 09:09 97.9 F 101 H 18 115/80 98 10/13/17 06:24 100 H 115/85 10/13/17 04:13 110 H 111/67 10/13/17 03:51 100.0 F H 109 H 18 111/67 95 10/12/17 23:48 99.0 F 105 H 18 111/73 90 10/12/17 22:21 119 H 137/93 10/12/17 22:19 119 H 137/93 10/12/17 20:06 99.4 F 10/12/17 16:58 124 H 134/100 97 10/12/17 16:57 98.6 F 126 H 18 134/100 97 10/12/17 12:08 108 H 131/94 95 - Physical Examination General: No Apparent Distress HEENT: Positive: PERRL Cardiac: Positive: Reg Rate and Rhythm Lungs: Positive: Decreased Breath Sounds Neuro: Positive: Grossly Intact - Labs and Meds CBC 10/13/17 Range/Units 06:20 WBC 9.9 (4.5-11.0) K/mm3 RBC 3.73 (3.65-5.03) M/mm3 Hgb 10.3 L (11.8-15.2) gm/dl Hct 31.5 L (35.5-45.6) % Plt Count 388 (140-440) K/mm3 Lymph # 1.5 (1.2-5.4) K/mm3 [place] # 1.1 H (0.0-0.8) K/mm3 Eos # 0.1 (0.0-0.4) K/mm3 Baso # 0.1 (0.0-0.1) K/mm3 Comprehensive Metabolic Panel 10/13/17 Range/Units 06:20 Sodium 137 (137-145) mmol/L Potassium 4.0 (3.6-5.0) mmol/L Chloride 98.9 (98-107) mmol/L Carbon Dioxide 25 (22-30) mmol/L BUN 32 H (9-20) mg/dL Creatinine 1.9 H (0.8-1.5) mg/dL Glucose 123 H (75-100) mg/dL Calcium 8.3 L (8.4-10.2) mg/dL - Imaging and Cardiology EKG: image reviewed
--- NOTE | 2017-10-13 12:00 | Discharge Summary ---
Providers - Providers Date of Admission: 09/22/17 22:07 Date of discharge: 10/13/17 Attending physician: TINO JEAN BAPTISTE 09/22/17 22:07 Consult to Physician [CONS] Routine Consulting Provider: NADIA SO Reason For Exam: sob Place consult to:: Dr. So Notified:: Merritt TRACY Phone number called:: Was contact made?: Yes If yes, spoke with:: voicemail with consult info left via automated message service Time called:: 12:09 09/22/17 22:34 Consult to Physician [CONS] Routine Consulting Provider: TANYA JAMES Reason For Exam: ab CE, chf Notified:: [employer] pl call 09/26/17 09:15 Consult to Physician [CONS] Routine Consulting Provider: ROXANNE GATES Reason For Exam: bilateral pneumonia, fever Place consult to:: ID Notified:: y Was contact made?: Yes Time called:: 10:01 09/29/17 10:28 Consult to Physician [CONS] Routine Consulting Provider: PHILIP REYNOLDS Reason For Exam: ARF Place consult to:: Office Notified:: yes Phone number called:: [phone] Was contact made?: Yes If yes, spoke with:: Dr Reynolds Time called:: 15:26 Comment:: SHILO 10/02/17 14:52 Consult to Physician [CONS] Routine Consulting Provider: MARCIN VERDUGO Reason For Exam: Vascular catheter placement Place consult to:: vascular Notified:: y Comment:: Dr Verdugo on floor 10/05/17 12:11 Consult to Physician [CONS] Urgent Consulting Provider: MARCIN RICO Reason For Exam: Right visual field defect r/o CVA Place consult to:: neuro Notified:: yes Comment:: added to list 10/08/17 12:54 Consult to Cardiac Rehabilitation [CONS] Routine Reason For Exam: Cardiac Rehab Evaluation Primary care physician: KAZ WALTER Hospitalization Reason for admission: sob Condition: Serious Hospital course: 42 years old male with history of hypertension, diabetes, CHF; initially admitted on 09/10/17-09/16/17 due to 4-day history of cough, nonproductive, shortness of breath and decreased energy with generalized weakness. Patient was hypoxic in the emergency room and placed on BiPAP and then high flow oxygen. CTA showed bilateral pneumonia. He received antibiotics for pneumonia. 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 For which he was treated with water restriction, and was being, managed by nephrology. He was also found to have CHF with very low EF, and he received cardiology consultation, and was in process of his workup. The patient was improving but was still oxygen dependent , still requiring high flow oxygen. Patient left AMA. Unfortunately, he was readmitted on 09/22/17 due to worsening SOB, productive cough and on/off fever. In the Emergency Room, his temp 99.1, HR 105, R20, O2 93%, BP 143/103. WBC 9.5. Sodium 129. Glucose 256. CXR showed diffuse and partially confluent parenchymal opacities scattered in bilateral lungs. CTA showed extensive bilateral pneumonia with superimposed vascular congestion and bilateral small pleural effusions, midly enlarged right hilar and subcarinal LNs. The patient was seen by cardiology, nephrology, infectious disease and pulmonary consultation on the readmission. With regards to his cardiomyopathy/systolic heart failure, patient received aggressive medical therapy including IV milrinone. Ischemic cardiac workup was deferred until fluid overload and renal failure, resolved. The patient's renal failure worsened and nephrology opted for Vas-Cath placement and initiation of hemodialysis. Patient received hemodialysis throughout hospital stay until creatinine stabilized. Nephrology felt patient could have HD discontinued. Therefore, Vascath was removed. Patient also had other complications during hospital stay with right visual field cut and difficulty getting the words out and thinking of words. Patient was seen by neurology consultation. CT scan showed left large occipital old appearing infarct and a left subcortical lacunar infarct versus enlarged vascular space and other white matter disease. MRI revealed subacute ischemic insult within the left FALAFEL CART COOK distribution. MAYKEL was recommended but patient refused. Neurology suggested anticoagulation but safest to wait 3 weeks from stroke onset, allow cerebral autoregulation of blood flow and blood pressure to recover. Could start Coumadin 2 weeks from stroke, since will take a week to build up to therapeutic if starting for example with 5 mg per day. If using NOAC, which kicks in sooner, would wait the full 3 weeks. Cardiology recommended life vest at discharge given the cardiomyopathy and EF 10-15%. Patient had no significant obstructive CAD on [facility] this admission. Cardiology reports patient will follow-up with [facility]. Patient will need the above medication of anticoagulation addressed by [facility]. Also, patient will need Out patient sleep study per pulmonary recommendations. Patient will have Vas-Cath removed and will be discharged home. Patient to f/u with us in office in 7-10 days of discharge at [facility]: [address] [place] [address]. Phone- [phone]. Dedicated discharged on 52 minutes. Disposition: DC-01 TO HOME OR SELFCARE Time spent for discharge: 52 - Discharge Diagnoses (1) Acute congestive heart failure Status: Acute Qualifiers: Qualified Code(s): I50.9 - Heart failure, unspecified (2) Acute dyspnea Status: Acute (3) Acute renal failure (ARF) Status: Acute (4) Acute respiratory failure with hypoxia Status: Acute (5) Bilateral pleural effusion Status: Acute (6) Bilateral pneumonia Status: Acute Qualifiers: Qualified Code(s): J18.9 - Pneumonia, unspecified organism (7) CVA (cerebral vascular accident) Status: Acute (8) Cardiomyopathy Status: Acute Core Measure Documentation - Palliative Care Palliative Care/ Comfort Measures: Not Applicable - Core Measures Any of the following diagnoses?: heart failure - Heart Failure Discharge Requirements JOSHUA/ARB for LVSD if EF <40%: No Reason for no JOSHUA/ARB: Renal impairment Beta harsha at discharge: Yes - Stroke Discharge Requirements Statin for LDL = or >70 mg/dl on DC: Yes Anticoag for atrial fib/atrial flutter: No Reason for no anticoag for AF/F on DC: Medical Contraindication (to start 2-3 weeks after d/c per Neuro recommendations) Antithrombotic for ischemic stroke: Yes Exam - Constitutional Vitals: Temp Pulse Resp BP Pulse Ox 97.9 F 101 H 18 115/80 98 10/13/17 09:09 10/13/17 09:09 10/13/17 09:09 10/13/17 09:09 10/13/17 09:09 General appearance: Present: no acute distress, well-nourished - EENT Eyes: Present: PERRL ENT: hearing intact, clear oral mucosa - Neck Neck: Present: supple, normal ROM - Respiratory Respiratory effort: normal Respiratory: bilateral: CTA - Cardiovascular Heart Sounds: Present: S1 & S2. Absent: rub, click - Extremities Extremities: pulses symmetrical, No edema Peripheral Pulses: within normal limits - Abdominal General gastrointestinal: Present: soft, non-tender, non-distended, normal bowel sounds Male genitourinary: Present: normal - Integumentary Integumentary: Present: clear, warm, dry - Musculoskeletal Musculoskeletal: gait normal, strength equal bilaterally - Psychiatric Psychiatric: appropriate mood/affect, intact judgment & insight - Neurologic Neurologic: CNII-XII intact, moves all extremities Plan Activity: advance as tolerated Weight Bearing Status: Weight Bear as Tolerated Diet: low fat, low cholesterol, low salt Additional Instructions: Pt. will need f/u with [facility] and Neurology (Dr. Villarreal) to initiate anticoagulation 2-3 weeks after discharge. Please see d/ c summary Follow up with: [facility] [Referring] - 3-5 Days PHILIP REYNOLDS MD [Staff Physician] - 7 Days MARCIN RICO MD [Staff Physician] - 7 Days NADIA SO MD [Staff Physician] - 7 Days TANYA JAMES MD [Staff Physician] - 7 Days ROXANNE GATES MD [Staff Physician] - 7 Days Forms: AMA Form Prescriptions: Aspirin [Aspirin BABY CHEW TAB] 81 mg PO QDAY #30 tab.chew Furosemide [Lasix TAB] 40 mg PO QDAY #30 tablet hydrALAZINE [Apresoline TAB] 25 mg PO Q8HR #90 tablet Insulin Detemir [Levemir] 20 units SUB-Q QHS #30 units Metoprolol [Lopressor TAB] 25 mg PO Q6H #120 tablet Pantoprazole [Protonix TAB] 40 mg PO QDAY #30 tablet Pravastatin [Pravachol] 40 mg PO QHS #30 tablet Zolpidem [Ambien] 5 mg PO QHS PRN #30 tablet PRN Reason: Sleep
[2017-10-14] MEDS ORDERED: LOVENOX SUB-Q SCH (10:00)
== END 2017-10-13 20:30 | disposition home or self-care (01) | DRG 871 ==
LOC: ED 18:24 → 4A 22:07
PROVIDERS: ADMIT Internal Medicine; ATTEND Hospitalist
PROC: 4A033R1 Measurement of Arterial Saturation, Peripheral, Percutaneous Approach (ICD-10-PCS; principal; 2017-09-23)
PROC: 5A09557 Assistance with Respiratory Ventilation, Greater than 96 Consecutive Hours, Continuous Positive Airway Pressure (ICD-10-PCS; 2017-09-25)
PROC: 5A1D70Z Performance of Urinary Filtration, Intermittent, Less than 6 Hours Per Day (ICD-10-PCS; 2017-10-02)
PROC: B5131ZZ Fluoroscopy of Right Jugular Veins using Low Osmolar Contrast (ICD-10-PCS; 2017-10-02)
PROC: 02H633Z Insertion of Infusion Device into Right Atrium, Percutaneous Approach (ICD-10-PCS; 2017-10-02)
PROC: B244ZZZ Ultrasonography of Right Heart (ICD-10-PCS; 2017-10-02)
PROC: 5A1D70Z Performance of Urinary Filtration, Intermittent, Less than 6 Hours Per Day (ICD-10-PCS; 2017-10-03)
PROC: 5A1D70Z Performance of Urinary Filtration, Intermittent, Less than 6 Hours Per Day (ICD-10-PCS; 2017-10-05)
PROC: 4A023N7 Measurement of Cardiac Sampling and Pressure, Left Heart, Percutaneous Approach (ICD-10-PCS; 2017-10-08)
PROC: B2111ZZ Fluoroscopy of Multiple Coronary Arteries using Low Osmolar Contrast (ICD-10-PCS; 2017-10-08)
DX: A41.9 Sepsis, unspecified organism (principal); J18.9 Pneumonia, unspecified organism; J96.01 Acute respiratory failure with hypoxia; I50.23 Acute on chronic systolic (congestive) heart failure; I63.9 Cerebral infarction, unspecified; I42.9 Cardiomyopathy, unspecified; N17.9 Acute kidney failure, unspecified; E87.1 Hypo-osmolality and hyponatremia; I47.1 Supraventricular tachycardia; E11.9 Type 2 diabetes mellitus without complications; I11.0 Hypertensive heart disease with heart failure; Z82.49 Family history of ischemic heart disease and other diseases of the circulatory system; E66.9 Obesity, unspecified; G47.30 Sleep apnea, unspecified; E78.5 Hyperlipidemia, unspecified; F17.210 Nicotine dependence, cigarettes, uncomplicated; Z68.39 Body mass index [BMI] 39.0-39.9, adult; E11.65 Type 2 diabetes mellitus with hyperglycemia
CPT/HCPCS: 36415; 36556; 36600; 70450; 70544; 70547; 70551; 71045; 71046; 71275; 76604; 76770; 80048; 80061; 80074; 80202; 82550; 82553; 82565; 82570; 82575; 82803; 82962; 83735; 83880; 83930; 84100; 84484; 85007; 85025; 85610; 86140; 87040; 87400; 87536; 87806; 89050; 93005; 93010; 93454; 94640; 94660; 94760; 96374; 96375; 99406; A9270-GY; C1752; C1760; C1894; J1644; J1650; J1815; J1818; J1940; J2060; J2250; J2260; J2405; J2543; J3010; J3370; J7030; J7040; Q9967